=== PATIENT | male | born 1955 | race Caucasian/White ===

== ENCOUNTER 2017-08-18 18:56 | Emergency (ER) | payer MEDICARE ==
[2017-08-18 19:15] VITALS: BP 130/74; PULSE 90; RESP 20; TEMP 98.9
--- NOTE | 2017-08-18 19:48 | ED ---
Wound/Laceration HPI - General Chief Complaint: Wound/Laceration Stated Complaint: POST OP BLEEDING, RT HIP Sx ON 07/20/17 Time Seen by Provider: 08/18/17 19:20 Source: patient, RN notes reviewed Mode of arrival: wheelchair Limitations: no limitations - History of Present Illness Initial Comments: This a 62-year-old male presents emergency Department chief complaint of bleeding from his surgical site. Patient states that he had right hip surgery on 08/07/2017 at [place] by Dr. Prado. Patient states that he noticed some bleeding today states it's light red color nature. He denies any pain, fever, chills. Patient states symptoms have been improving daily. He is currently on Xarelto. Patient states is only one site that seems to be trickling every now and then. He's gone through a few 4 x 4 gauze. Patient did not contact his surgeon at this time. Patient offers no other complaints. - Related Data Allergies Allergy/AdvReac Type Severity Reaction Status Date / Time aspirin Allergy Abdominal Verified 08/18/17 19:16 Pain fentanyl Allergy Hallucinati Verified 08/18/17 19:16 ons gemfibrozil [From Lopid] Allergy Unknown Verified 08/18/17 19:16 Review of Systems ROS Statement: Those systems with pertinent positive or pertinent negative responses have been documented in the HPI. ROS Other: All systems not noted in ROS Statement are negative. Past Medical History Past Medical History: Asthma, Diabetes Mellitus, Hyperlipidemia, Hypertension, Osteoarthritis (OA) History of Any Multi-Drug Resistant Organisms: None Reported Past Surgical History: Bowel Resection, Hernia Repair, Joint Replacement, Orthopedic Surgery Additional Past Surgical History / Comment(s): iggy hip replacement, cataract Past Psychological History: Anxiety Smoking Status: Never smoker Past Alcohol Use History: None Reported Past Drug Use History: None Reported General Exam Limitations: no limitations General appearance: alert, in no apparent distress Respiratory exam: Present: normal lung sounds bilaterally. Absent: respiratory distress, wheezes, rales, rhonchi, stridor Cardiovascular Exam: Present: regular rate, normal rhythm, normal heart sounds. Absent: systolic murmur, diastolic murmur, rubs, gallop, clicks Extremities exam: Present: other (Right hip there is a surgical site noted with no erythema, no warmth with palpation, there is a small opening to the incision noted with light-colored blood. Patient has minimal tenderness to the site. Bleeding is only noted when patient is standing. Pedal pulses are equal bilaterally) Course Vital Signs 08/18/17 19:10 Temperature 98.9 F Pulse Rate 90 Respiratory 20 Rate Blood Pressure 130/74 O2 Sat by Pulse 96 Oximetry Medical Decision Making - Medical Decision Making 62-year-old male presented to friend from bleeding from surgical site. This most likely is from a seroma/hematoma. There is very minimal bleeding, no bleeding when laying flat. The area was palpated thoroughly with no warmth and no expression of further blood. Patient was examined also by Dr. [place]. Patient was informed this most likely is a seroma Steri-Stripped, gauze dressing was applied with pressure patient advised to call surgeon and return for any worsening symptoms. Disposition Clinical Impression: Postoperative bleeding from incision, Seroma Disposition: HOME SELF-CARE Condition: Stable Instructions: Hematoma (ED) Additional Instructions: Please return to the Emergency Department if symptoms worsen or any other concerns. Referrals: Luh Louise MD [Primary Care Provider] - 1-2 days Time of Disposition: 19:47
== END 2017-08-18 19:55 | disposition home or self-care (01) ==
LOC: EC 18:56
DX: M96.830 Postprocedural hemorrhage of a musculoskeletal structure following a musculoskeletal system procedure (principal); M96.842 Postprocedural seroma of a musculoskeletal structure following a musculoskeletal system procedure; Z79.01 Long term (current) use of anticoagulants; Z88.6 Allergy status to analgesic agent; Z88.5 Allergy status to narcotic agent; Z88.8 Allergy status to other drugs, medicaments and biological substances; Z96.643 Presence of artificial hip joint, bilateral
CPT/HCPCS: 99283

== ENCOUNTER 2018-01-31 06:52 | Day surgery (SDC) | payer MEDICARE ==
[2018-01-29 12:25] VITALS: BMI 37.5
[~2018-01-31 06:52] MED LIST: LACTATED RINGERS 1,000 ML IV SCH
[2018-01-31 07:18] VITALS: RESP 16; TEMP 98.4
[2018-01-31] MEDS ORDERED: LIDOCAINE 1% 20 ML VIAL (10MG/ML) FOR IV START INTRADERMA ONE (07:18)
[2018-01-31 07:20] LABS: Glucose,Whole Blood 93 mg/dL (75-99)
[2018-01-31] MEDS ORDERED: PROPOFOL 10 MG/ML 20 ML VIAL IV ONE (09:02)
[2018-01-31] MEDS ORDERED: LIDOCAINE 1% INJ 10MG/ML (20 ML MDV) ONE (09:02)
[2018-01-31] MEDS ORDERED: MIDAZOLAM 2 MG/2 ML VIAL ONE (09:02)
[2018-01-31] MEDS ORDERED: diphenhydrAMINE 50 MG/ML 1 ML VIAL ONE (09:02)
--- NOTE | 2018-01-31 09:38 | P.PCN ---
Date of Procedure: 01/31/18 Procedure(s) Performed: Procedure: Total colonoscopy. Preoperative diagnosis: Positive cologuard test. Postoperative diagnosis: Mild diverticulosis with no evidence of acute diverticulitis, strictures, polyps or cancer. Preparation: HalfLytely prep. Sedation: Was provided by anesthesia. Brief clinical history: The patient is a 62-year-old male who is scheduled for this evaluation because of finding of positive Corgard. The patient had prior colonoscopy around 14 years ago. He has no abdominal complaints, bleeding or anemia. Procedure: With the patient on his left lateral decubitus position and after informed consent and adequate sedation, the perianal area was inspected and it did not show any fissures or fistulas. There were no masses felt on digital rectal examination. The Olympus CFQ 160L video colonoscope was then inserted in the rectum in the usual fashion and advanced to the cecum. There were a few diverticular orifices seen scattered in the sigmoid and on the right side but there was no evidence of acute diverticulitis or strictures. No polyps or tumors were seen. I retroflexed the endoscope in the rectum before the endoscope was withdrawn. The patient tolerated the procedure well. Plan: The patient was reassured. Discussed dietary measures. In the absence of upper GI complaints or anemia, I did not recommend upper GI workup at this time for the workup of his heme-positive stools and this can be kept as a contingency. He will follow up with you as planned.
[2018-01-31 09:50] VITALS: BP 126/79; PULSE 73
== END 2018-01-31 10:13 | disposition home or self-care (01) ==
LOC: ORWHC2ENDO 06:52
DX: K57.30 Diverticulosis of large intestine without perforation or abscess without bleeding (principal); R19.5 Other fecal abnormalities; E11.9 Type 2 diabetes mellitus without complications; I10 Essential (primary) hypertension; E78.5 Hyperlipidemia, unspecified; M19.90 Unspecified osteoarthritis, unspecified site; R41.3 Other amnesia; E66.9 Obesity, unspecified; Z68.37 Body mass index [BMI] 37.0-37.9, adult; Z96.643 Presence of artificial hip joint, bilateral; Z79.84 Long term (current) use of oral hypoglycemic drugs; Z79.82 Long term (current) use of aspirin; Z79.51 Long term (current) use of inhaled steroids; Z79.899 Other long term (current) drug therapy; Z88.6 Allergy status to analgesic agent; Z88.8 Allergy status to other drugs, medicaments and biological substances; Z86.711 Personal history of pulmonary embolism; Z87.891 Personal history of nicotine dependence
CPT/HCPCS: 45378; J2250; J1200; J2001; J2704

== ENCOUNTER 2018-05-02 10:56 | Inpatient (IN) | payer MEDICARE ==
--- NOTE | 2018-05-02 11:22 | ED ---
General Adult HPI - General Chief complaint: Arrhythmia/Palpitations Stated complaint: abnormal ekg Time Seen by Provider: 05/02/18 11:07 Source: patient, RN notes reviewed Mode of arrival: ambulatory Limitations: no limitations - History of Present Illness Initial comments: 63-year-old male history of asthma COPD presents for evaluation of palpitations. Patient was seen in the outpatient setting, noted to be in a flutter. He was sent in for evaluation. Denies chest pain. Patient has no history of arrhythmia. No history of CAD. He does admit that over the past one month he's been dealing with upper respiratory tract infections and COPD. He's been on multiple antibiotics and steroid taper. States his previous somewhat improved although he does have some exertional dyspnea. Cough. No fever or chills. No abdominal pain. No nausea vomiting or diarrhea. - Related Data Home Medications Medication Instructions Recorded Confirmed Pregabalin [Lyrica] 300 mg PO BID 08/18/17 05/02/18 Sertraline [Zoloft] 100 mg PO DAILY 08/18/17 05/02/18 metFORMIN HCL 1,000 mg PO BID 08/18/17 05/02/18 Aspirin [Adult Low Dose Aspirin EC] 81 mg PO HS 01/29/18 05/02/18 Fluticasone Nasal [place] [Flonase 2 spr EA NOSTRIL BID PRN 01/29/18 05/02/18 Nasal [place]] Lisinopril [Prinivil] 10 mg PO QAM 01/29/18 05/02/18 Montelukast Sodium [Singulair] 10 mg PO DAILY 01/29/18 05/02/18 Ranitidine HCl [Zantac] 150 mg PO BID 01/29/18 05/02/18 Simvastatin [Zocor] 40 mg PO DAILY 01/29/18 05/02/18 Albuterol Nebulized [Ventolin 2.5 mg INHALATION Q4H PRN 05/02/18 05/02/18 Nebulized] Budesonide [Pulmicort] 1 mg INHALATION RT-BID 05/02/18 05/02/18 Budesonide/Formoterol Fumarate 2 puff INHALATION RT-BID 05/02/18 05/02/18 [Symbicort 160-4.5 Mcg Inhaler] Tamsulosin HCl [Flomax] 0.4 mg PO HS 05/02/18 05/02/18 Allergies Allergy/AdvReac Type Severity Reaction Status Date / Time aspirin Allergy Abdominal Verified 05/02/18 11:38 Pain fentanyl Allergy Hallucinati Verified 05/02/18 11:38 ons gemfibrozil [From Lopid] Allergy Unknown Verified 05/02/18 11:38 Review of Systems ROS Statement: Those systems with pertinent positive or pertinent negative responses have been documented in the HPI. ROS Other: All systems not noted in ROS Statement are negative. Past Medical History Past Medical History: Asthma, Diabetes Mellitus, Hyperlipidemia, Hypertension, Memory Impairment, Musculoskeletal Disorder, Osteoarthritis (OA), Pneumonia, Prostate Disorder, Pulmonary Embolus (PE), Skin Disorder Additional Past Medical History / Comment(s): Dermatitis, enlarged prostate. PE found in 07/2003 while hospitalized for pneumonia, spinal stenosis, degenerative scoliosis, nerve pain in knees. Positive Cologard Test. History of Any Multi-Drug Resistant Organisms: None Reported Past Surgical History: Bowel Resection, Hernia Repair, Joint Replacement, Orthopedic Surgery Additional Past Surgical History / Comment(s): Bilateral hip replacement, bilateral cataract surgery, hiatal hernia repair, incisional hernia repair, bronchoscopies., colonoscopy Past Anesthesia/Blood Transfusion Reactions: Previous Problems w/ Anesthesia, Family History of Problems w/ Anesthesia Additional Past Anesthesia/Blood Transfusion Reaction / Comment(s): "Problem with being twilighted - become very combative. Slow to wake up. Uncle has same symptoms." Past Psychological History: Depression Smoking Status: Former smoker Past Alcohol Use History: None Reported Past Drug Use History: None Reported - Past Family History Father Family Medical History: Cancer Mother Family Medical History: Cancer Brother(s) Family Medical History: Cancer General Exam Limitations: no limitations General appearance: alert, in no apparent distress Head exam: Present: atraumatic, normocephalic Eye exam: Present: normal appearance ENT exam: Present: normal exam Respiratory exam: Present: wheezes, rhonchi. Absent: respiratory distress, rales Cardiovascular Exam: Present: regular rate, normal rhythm GI/Abdominal exam: Present: soft. Absent: distended, tenderness Extremities exam: Present: normal inspection, normal capillary refill. Absent: pedal edema, calf tenderness Neurological exam: Present: alert, oriented X3. Absent: motor sensory deficit Psychiatric exam: Present: normal affect, normal mood Skin exam: Present: warm, dry, intact. Absent: cyanosis, diaphoretic Course Vital Signs 05/02/18 05/02/18 05/02/18 11:00 11:08 14:00 Temperature 98.2 F Pulse Rate 84 93 Respiratory 18 18 Rate Blood Pressure 137/88 112/71 O2 Sat by Pulse 93 L 94 L 94 L Oximetry 05/02/18 05/02/18 05/02/18 14:30 15:00 15:30 Temperature Pulse Rate 115 H 99 101 H Respiratory 18 Rate Blood Pressure 111/79 108/85 111/82 O2 Sat by Pulse 93 L 93 L 95 Oximetry 05/02/18 05/02/18 15:33 15:42 Temperature Pulse Rate 86 104 H Respiratory Rate Blood Pressure O2 Sat by Pulse Oximetry EKG Findings - EKG Comments: EKG Findings:: EKG: Atrial flutter with variable AV block, rate of 87, QRS duration 92, QTC 459, no ST segment elevation Medical Decision Making - Medical Decision Making 63-year-old male with chief complaint of palpitations, found to be in atrial flutter. This is a new diagnosis for this patient. Patient has admitted to cough and dyspnea over the past several weeks and had been treated for pneumonia. He states he's had persistent dyspnea. EKG shows atrial flutter with variable AV block. No definitive signs of ischemia. Patient has normal white blood cell count, hemoglobin 12.4, CO2 is 31 consistent with COPD and CO2 retention. Troponin and BNP negative. D-dimer is elevated at 0.9. CT angiography is obtained which shows right upper lobe pneumonia which is consistent with chest x-ray findings. Patient is started on antibiotics for community acquired pneumonia. He is admitted for further evaluation and treatment. He is placed on heparin in the emergency department as well. - Lab Data Result diagrams: 05/02/18 11:33 05/02/18 11:33 Lab Results 05/02/18 05/02/18 05/02/18 Range/Units 11:33 11:33 11:33 WBC 7.7 (3.8-10.6) k/uL RBC 4.26 L (4.30-5.90) m/uL Hgb 12.4 L (13.0-17.5) gm/dL Hct 39.0 (39.0-53.0) % MCV 91.6 (80.0-100.0) fL MCH 29.1 (25.0-35.0) pg MCHC 31.7 (31.0-37.0) g/dL RDW 14.4 (11.5-15.5) % Plt Count 304 (150-450) k/uL Neutrophils % 76 % Lymphocytes % 12 % Monocytes % 7 % Eosinophils % 2 % Basophils % 1 % Neutrophils # 5.9 (1.3-7.7) k/uL Lymphocytes # 0.9 L (1.0-4.8) k/uL Monocytes # 0.5 (0-1.0) k/uL Eosinophils # 0.1 (0-0.7) k/uL Basophils # 0.0 (0-0.2) k/uL Hypochromasia Slight PT (9.0-12.0) sec INR (<1.2) APTT (22.0-30.0) sec D-Dimer (<0.60) mg/L FEU Sodium 140 (137-145) mmol/L Potassium 4.4 (3.5-5.1) mmol/L Chloride 105 (98-107) mmol/L Carbon Dioxide 31 H (22-30) mmol/L Anion Gap 4 mmol/L BUN 17 (9-20) mg/dL Creatinine 0.65 L (0.66-1.25) mg/dL Est GFR (CKD-EPI)AfAm >90 (>60 ml/min/1.73 sqM) Est GFR (CKD-EPI)NonAf >90 (>60 ml/min/1.73 sqM) Glucose 110 H (74-99) mg/dL Calcium 9.5 (8.4-10.2) mg/dL Magnesium 1.9 (1.6-2.3) mg/dL Total Bilirubin 0.3 (0.2-1.3) mg/dL AST 32 (17-59) U/L ALT 44 (21-72) U/L Alkaline Phosphatase 68 (38-126) U/L Total Creatine Kinase 173 H (55-170) U/L CK-MB (CK-2) 5.7 H (0.0-2.4) ng/mL CK-MB (CK-2) Rel Index 3.3 Troponin I <0.012 (0.000-0.034) ng/mL NT-Pro-B Natriuret Pep pg/mL Total Protein 6.0 L (6.3-8.2) g/dL Albumin 3.4 L (3.5-5.0) g/dL TSH 1.780 (0.465-4.680) mIU/L 05/02/18 05/02/18 Range/Units 11:33 11:33 WBC (3.8-10.6) k/uL RBC (4.30-5.90) m/uL Hgb (13.0-17.5) gm/dL Hct (39.0-53.0) % MCV (80.0-100.0) fL MCH (25.0-35.0) pg MCHC (31.0-37.0) g/dL RDW (11.5-15.5) % Plt Count (150-450) k/uL Neutrophils % % Lymphocytes % % Monocytes % % Eosinophils % % Basophils % % Neutrophils # (1.3-7.7) k/uL Lymphocytes # (1.0-4.8) k/uL Monocytes # (0-1.0) k/uL Eosinophils # (0-0.7) k/uL Basophils # (0-0.2) k/uL Hypochromasia PT 10.7 (9.0-12.0) sec INR 1.1 (<1.2) APTT 26.3 (22.0-30.0) sec D-Dimer 0.90 H (<0.60) mg/L FEU Sodium (137-145) mmol/L Potassium (3.5-5.1) mmol/L Chloride (98-107) mmol/L Carbon Dioxide (22-30) mmol/L Anion Gap mmol/L BUN (9-20) mg/dL Creatinine (0.66-1.25) mg/dL Est GFR (CKD-EPI)AfAm (>60 ml/min/1.73 sqM) Est GFR (CKD-EPI)NonAf (>60 ml/min/1.73 sqM) Glucose (74-99) mg/dL Calcium (8.4-10.2) mg/dL Magnesium (1.6-2.3) mg/dL Total Bilirubin (0.2-1.3) mg/dL AST (17-59) U/L ALT (21-72) U/L Alkaline Phosphatase (38-126) U/L Total Creatine Kinase (55-170) U/L CK-MB (CK-2) (0.0-2.4) ng/mL CK-MB (CK-2) Rel Index Troponin I (0.000-0.034) ng/mL NT-Pro-B Natriuret Pep 579 pg/mL Total Protein (6.3-8.2) g/dL Albumin (3.5-5.0) g/dL TSH (0.465-4.680) mIU/L Disposition Clinical Impression: Atrial flutter, Atrial fibrillation, Community acquired bacterial pneumonia Disposition: ADMITTED IP TO THIS HOSP Condition: Stable Is patient prescribed a controlled substance at d/c from ED?: No Referrals: Luh Louise MD [Primary Care Provider] - 1-2 days Decision to Admit Reason: Admit from EC Decision Date: 05/02/18 Decision Time: 15:53
[2018-05-02 12:19] LABS: Basophils % (A) 1 %; Eosinophils # (A) 0.1 k/uL (0-0.7); Eosinophils % (A) 2 %; HGB 12.4 gm/dL (13.0-17.5); Hypochromasia Slight; Lymphocytes # (A) 0.9 k/uL (1.0-4.8); Lymphocytes % (A) 12 %; MCH 29.1 pg (25.0-35.0); MCHC 31.7 g/dL (31.0-37.0); MCV 91.6 fL (80.0-100.0); Mean Platelet Volume 7.6; Monocytes # (A) 0.5 k/uL (0-1.0); Monocytes % (A) 7 %; Neutrophils # (A) 5.9 k/uL (1.3-7.7); Neutrophils % (A) 76 %; Platelet Count 304 k/uL (150-450); RBC 4.26 m/uL (4.30-5.90); RDW 14.4 % (11.5-15.5); WBC 7.7 k/uL (3.8-10.6)
[2018-05-02 12:29] LABS: ALT 44 U/L (21-72); AST 32 U/L (17-59); Albumin 3.4 g/dL (3.5-5.0); Alkaline Phosphatase 68 U/L (38-126); Anion Gap 4 mmol/L; Blood Urea Nitrogen 17 mg/dL (9-20); Calcium 9.5 mg/dL (8.4-10.2); Carbon Dioxide 31 mmol/L (22-30); Chloride 105 mmol/L (98-107); Glucose 110 mg/dL (74-99); Magnesium 1.9 mg/dL (1.6-2.3); Potassium 4.4 mmol/L (3.5-5.1); Sodium 140 mmol/L (137-145); Total Bilirubin 0.3 mg/dL (0.2-1.3)
[2018-05-02 12:45] LABS: Creatine Kinase 173 U/L (55-170)
[2018-05-02 12:48] LABS: INR 1.1 (<1.2); Partial Thromboplastin Time 26.3 sec (22.0-30.0); Prothrombin Time 10.7 sec (9.0-12.0)
[2018-05-02 12:58] LABS: Creatine Kinase MB 5.7 ng/mL (0.0-2.4); Troponin I <0.012 ng/mL (0.000-0.034)
[2018-05-02 13:03] LABS: D-Dimer 0.9 mg/L FEU (<0.60)
--- NOTE | 2018-05-02 13:05 | XR ---
EXAMINATION TYPE: XR chest 2V DATE OF EXAM: 05/02/2018 COMPARISON: NONE TECHNIQUE: PA and lateral views submitted. HISTORY: Tachycardia FINDINGS: There is diffuse abnormal density in the right upper lobe. Heart is prominent is hyperinflation. No p neumothorax. Diffuse osteopenia. No pleural effusion. Hypertrophic and degenerative change of the spi ne. Atherosclerotic change aorta. Biapical pleural thickening. IMPRESSION: 1. Diffuse right upper lobe area of infiltrate. Correlate for pneumonia. Underlying neoplastic proces s not excluded.
[2018-05-02] MEDS ORDERED: HEPARIN SODIUM,PORCINE 5,000 UNIT/ML 1 ML VIAL IV ONE (13:06)
[2018-05-02] MEDS ORDERED: HEPARIN SOD,PORK IN 0.45% NACL 25,000 UNIT in 0.45% NACL 1 500ML.BAG IV SCH (13:15)
[2018-05-02] MEDS ORDERED: AZITHROMYCIN 500 MG in SODIUM CHLORIDE 0.9% 250 ML IVPB STA (13:57)
[2018-05-02] MEDS ORDERED: IPRATROPIUM-ALBUTEROL 3 ML NEB INHALATION STA (14:52)
[2018-05-02] MEDS ORDERED: DEXAMETHASONE SOD PHOSPHATE 10 MG/ML 1 ML VIAL IV STA (14:52)
[2018-05-02] MEDS: SODIUM CHLORIDE 0.9% 1,000 ML IV SCH (15:15)
[2018-05-02] MEDS ORDERED: NALOXONE 0.4 MG/ML 1 ML VIAL IV PRN (15:15)
--- NOTE | 2018-05-02 15:46 | CT ---
EXAMINATION TYPE: CT angio chest DATE OF EXAM: 05/02/2018 COMPARISON: None HISTORY: Abnormal EKG CT DLP: 869.9 mGycm CONTRAST: CT chest with contrast and 3D reconstruction with MIP imaging is performed with IV Contrast, patient injected with 100 mL of Isovue 370. Contrast-enhanced CT of the chest was performed through the course of the pulmonary arteries with dalton g and mediastinal window settings submitted. 3D reconstruction with MIP imaging was also performed. PULMONARY ARTERIES: The pulmonary arteries and their major tributaries are patent. I do not see brianne dence for sizable filling defect to suggest pulmonary embolic process. LUNGS: Scattered areas of airspace consolidation greatest within the right upper lobe felt to reflect underlying pneumonia. Bronchial wall thickening also noted. No evidence for mass or nodule. MEDIASTINUM: Thoracic aorta is of normal caliber,however, evaluation is limited given timing of the contrast bolus. If there is concern for thoracic aortic pathology consider ARNOL. Correlate clinicall y . The heart is not enlarged. No evidence for mediastinal mass. Mild mediastinal adenopathy measuri ng up to 1.5 cm. There is also right hilar adenopathy measuring 1.6 cm. UPPER ABDOMEN: No significant abnormality is seen. IMPRESSION: 1. No evidence for Pulmonary embolism at this time. 2. Multifocal pneumonia greatest within the right upper lobe with probable reactive adenopathy. Corre late clinically and progress studies are recommended.
[2018-05-02 18:01] VITALS: BMI 41.1
[2018-05-02 18:05] LABS: Glucose,Whole Blood 255 mg/dL (75-99)
[2018-05-02] MEDS ORDERED: FLUTICASONE 50MCG/SPRAY NASAL 16GM EA NOSTRIL PRN (18:18)
[2018-05-02] MEDS: INSULIN ASPART 100 UNIT/ML 1 ML 10 ML VIAL SQ SCH ×2 (18:59→21:09)
[2018-05-02] MEDS: MONTELUKAST 10 MG TAB PO SCH (19:00)
[2018-05-02] MEDS: LISINOPRIL 10 MG TAB PO SCH (19:00)
[2018-05-02] MEDS: BUDESONIDE 1 MG/2 ML NEBU INHALATION SCH (20:18)
[2018-05-02] MEDS: ALBUTEROL NEBULIZED 2.5 MG/3 ML INHALATION PRN (20:43)
[2018-05-02 20:58] LABS: Glucose,Whole Blood 153 mg/dL (75-99)
[2018-05-02] MEDS: FAMOTIDINE 20 MG TAB PO SCH (21:09)
[2018-05-02] MEDS: HEPARIN SODIUM,PORCINE 5,000 UNIT/ML 1 ML VIAL IV PRN (21:10)
[2018-05-02] MEDS: PREGABALIN 100 MG CAP PO SCH (21:35)
[2018-05-03] MEDS: ACETAMINOPHEN TAB 325 MG TAB PO PRN (00:32)
[2018-05-03 03:17] LABS: Hemoglobin A1C 6.4 % (4.0-6.0)
[2018-05-03] MEDS: SODIUM CHLORIDE 0.9% 1,000 ML IV SCH (04:00)
[2018-05-03 04:36] LABS: Basophils % (A) 0 %; Eosinophils % (A) 0 %; HCT 37.1 % (39.0-53.0); Hypochromasia Slight; Lymphocytes # (A) 0.6 k/uL (1.0-4.8); Lymphocytes % (A) 9 %; MCH 29.8 pg (25.0-35.0); MCHC 32.5 g/dL (31.0-37.0); MCV 91.8 fL (80.0-100.0); Mean Platelet Volume 7.7; Monocytes # (A) 0.3 k/uL (0-1.0); Monocytes % (A) 5 %; Neutrophils # (A) 5.7 k/uL (1.3-7.7); Neutrophils % (A) 84 %; Platelet Count 290 k/uL (150-450); RBC 4.04 m/uL (4.30-5.90); RDW 14.2 % (11.5-15.5); WBC 6.8 k/uL (3.8-10.6)
[2018-05-03 04:45] LABS: Anion Gap 4 mmol/L; Blood Urea Nitrogen 16 mg/dL (9-20); Calcium 9.3 mg/dL (8.4-10.2); Carbon Dioxide 28 mmol/L (22-30); Chloride 106 mmol/L (98-107); Glucose 148 mg/dL (74-99); Potassium 4.5 mmol/L (3.5-5.1); Sodium 138 mmol/L (137-145)
[2018-05-03] MEDS: HEPARIN SODIUM,PORCINE 5,000 UNIT/ML 1 ML VIAL IV PRN (04:54)
[2018-05-03 05:51] LABS: Glucose,Whole Blood 140 mg/dL (75-99)
[2018-05-03] MEDS: INSULIN ASPART 100 UNIT/ML 1 ML 10 ML VIAL SQ SCH ×4 (06:26→20:55)
[2018-05-03] MEDS: ALBUTEROL NEBULIZED 2.5 MG/3 ML INHALATION PRN (07:27)
[2018-05-03] MEDS: BUDESONIDE 1 MG/2 ML NEBU INHALATION SCH ×2 (07:27→20:44)
--- NOTE | 2018-05-03 09:37 | P.CRDCN ---
History of Present Illness Consult date: 05/03/18 Requesting physician: Kandace Espino Consult reason: atrial flutter Chief complaint: Shortness of breath and palpitations History of present illness: 's is a 63-year-old gentleman who follows as an outpatient with Dr. Louise, he has a history of hypertension, diabetes, hyperlipidemia, prior pulmonary embolism, nonsmoker, obesity, he states that since February 25 he has been on steroids and recurrent antibiotics for a lung infection. In spite of being on so many treatments, he states that he continued to have persistent cough, in the recent few days, he has just felt extremely weak, his energy levels have been significantly low, and he has been more short of breath. He states that just walking to his mailbox he can hardly breathe. Patient also noticed palpitations and jittery feeling which was new for him. He went to see Dr. Louise, and EKG was performed in the office which revealed atrial flutter and he was recommended to come to the emergency room for further evaluation and treatment. Let pressure on arrival here 136/80, heart rate in the 80s, 93% on room air. Chest x-ray showed diffuse right upper lobe infiltrate. Underlying neoplastic process not excluded. CTA of the chest did not reveal any evidence for pulmonary embolism. It did reveal multifocal pneumonia within the right upper lobe with probable reactive adenopathy. EKG showed atrial flutter with a heart rate in the high 80s. White blood cell count was normal, hemoglobin 12, platelet count 290. D-dimer 0.9. Sodium 138, potassium 4.5, BUN 16, creatinine 0.6. Magnesium 1.9. Troponin 0.012. BNP level 579, TSH 1.7. At the time of my examination this morning, patient complains of a jittery feeling, still feels short of breath. At the time of my examination this morning he also continues to be in an atrial flutter. Past Medical History Past Medical History: Asthma, COPD, Diabetes Mellitus, Hyperlipidemia, Hypertension, Memory Impairment, Musculoskeletal Disorder, Osteoarthritis (OA), Pneumonia, Prostate Disorder, Pulmonary Embolus (PE), Skin Disorder, Sleep Apnea /CPAP/BIPAP Additional Past Medical History / Comment(s): Dermatitis, enlarged prostate. PE found in 07/2003 while hospitalized for pneumonia, spinal stenosis, degenerative scoliosis, nerve pain in knees. Positive Cologard Test. History of Any Multi-Drug Resistant Organisms: None Reported Past Surgical History: Bowel Resection, Hernia Repair, Joint Replacement, Orthopedic Surgery Additional Past Surgical History / Comment(s): Bilateral hip replacement 2009, bilateral cataract surgery, hiatal hernia repair, incisional hernia repair , bronchoscopies., colonoscopy Past Anesthesia/Blood Transfusion Reactions: Previous Problems w/ Anesthesia, Family History of Problems w/ Anesthesia Additional Past Anesthesia/Blood Transfusion Reaction / Comment(s): "Problem with being twilighted - become very combative. Slow to wake up. Uncle has same symptoms." Past Psychological History: Depression Smoking Status: Former smoker Past Alcohol Use History: None Reported Additional Past Alcohol Use History / Comment(s): Quit smoking in 1996. Past Drug Use History: None Reported - Past Family History Father Family Medical History: Cancer Mother Family Medical History: Cancer Brother(s) Family Medical History: Cancer Medications and Allergies Home Medications Medication Instructions Recorded Confirmed Type Pregabalin [Lyrica] 300 mg PO BID 08/18/17 05/02/18 History Sertraline [Zoloft] 100 mg PO DAILY 08/18/17 05/02/18 History metFORMIN HCL 1,000 mg PO BID 08/18/17 05/02/18 History Aspirin [Adult Low Dose Aspirin EC] 81 mg PO HS 01/29/18 05/02/18 History Fluticasone Nasal [place] [Flonase 2 spr EA NOSTRIL BID PRN 01/29/18 05/02/18 History Nasal [place]] Lisinopril [Prinivil] 10 mg PO QAM 01/29/18 05/02/18 History Montelukast Sodium [Singulair] 10 mg PO DAILY 01/29/18 05/02/18 History Ranitidine HCl [Zantac] 150 mg PO BID 01/29/18 05/02/18 History Simvastatin [Zocor] 40 mg PO DAILY 01/29/18 05/02/18 History Albuterol Nebulized [Ventolin 2.5 mg INHALATION Q4H PRN 05/02/18 05/02/18 History Nebulized] Budesonide [Pulmicort] 1 mg INHALATION RT-BID 05/02/18 05/02/18 History Budesonide/Formoterol Fumarate 2 puff INHALATION RT-BID 05/02/18 05/02/18 History [Symbicort 160-4.5 Mcg Inhaler] Tamsulosin HCl [Flomax] 0.4 mg PO HS 05/02/18 05/02/18 History Allergies Allergy/AdvReac Type Severity Reaction Status Date / Time aspirin Allergy Abdominal Verified 05/02/18 11:38 Pain fentanyl Allergy Hallucinati Verified 05/02/18 11:38 ons gemfibrozil [From Lopid] Allergy Unknown Verified 05/02/18 11:38 Physical Exam Vitals: Vital Signs Temp Pulse Pulse Resp BP BP Pulse Ox 05/03/18 08:00 97.7 F 91 17 108/69 92 L 05/03/18 07:42 90 05/03/18 07:27 90 05/03/18 04:00 78 18 111/70 92 L 05/03/18 00:00 98 22 101/65 92 L 05/02/18 20:53 88 05/02/18 20:46 84 05/02/18 20:00 98.3 F 108 H 20 122/82 91 L 05/02/18 18:00 110 H 17 05/02/18 17:50 97.1 F L 110 H 20 135/93 94 L 05/02/18 17:00 98 7 L 126/97 96 05/02/18 16:30 94 16 109/93 93 L 05/02/18 16:00 106 H 17 99/83 94 L 05/02/18 15:42 104 H 05/02/18 15:33 86 05/02/18 15:30 101 H 18 111/82 95 05/02/18 15:00 99 108/85 93 L 05/02/18 14:30 115 H 111/79 93 L 05/02/18 14:00 93 18 112/71 94 L 05/02/18 11:08 94 L 05/02/18 11:00 98.2 F 84 18 137/88 93 L Intake and Output 05/02/18 05/03/18 05/03/18 22:59 06:59 14:59 Intake Total 986.764 227.075 240 Output Total 300 1325 Balance 686.764 -1097.925 240 Intake: IV 325 Azithromycin 500 mg In 250 Sodium Chloride 0.9% 250 ml @ 250 mls/hr IVPB DAILY [facility] Rx#:[id number] Sodium Chloride 0.9% 1, 75 000 ml @ 75 mls/hr IV . [id number] [facility] Rx#:[id number] Intake, IV Titration 141.764 227.075 Amount Heparin Sod,Pork in 0.45% 141.764 227.075 NaCl 25,000 unit In 0.45 % NaCl 1 500ml.bag @ 6.8 UNITS/KG/HR 19.92 mls/hr IV .Q24H [facility] Rx#: [id number] Oral 520 240 Output: Urine 300 1325 Other: # Voids 1 1 Weight 145.4 kg 141.9 kg PHYSICAL EXAMINATION: GENERAL: 63-year-old gentleman in no acute distress at the time of my examination HEENT: Head is atraumatic, normocephalic. Pupils equal, round. Sclera anicteric. Conjunctiva are clear. Mucous membranes of the mouth are moist. Neck is supple. There is no elevated jugular venous pressure. No carotid bruit is heard. HEART EXAMINATION: Heart S1-S2 irregularly irregular CHEST EXAMINATION: Lungs reveal scattered coarse wheezing throughout ABDOMEN: Soft, obese, nontender. Bowel sounds are heard. No organomegaly noted. EXTREMITIES: 2+ peripheral pulses with evidence of peripheral edema and no calf tenderness noted. NEUROLOGIC patient is awake, alert and oriented 3 . . Results 05/03/18 04:14 05/03/18 04:14 Cardiac Enzymes 05/02/18 05/02/18 Range/Units 11:33 11:33 AST 32 (17-59) U/L CK-MB (CK-2) 5.7 H (0.0-2.4) ng/mL Troponin I <0.012 (0.000-0.034) ng/mL Coagulation 05/02/18 05/02/18 05/03/18 Range/Units 11:33 20:00 04:14 PT 10.7 (9.0-12.0) sec APTT 26.3 28.9 30.9 H (22.0-30.0) sec CBC 05/02/18 05/03/18 Range/Units 11:33 04:14 WBC 7.7 6.8 (3.8-10.6) k/uL RBC 4.26 L 4.04 L (4.30-5.90) m/uL Hgb 12.4 L 12.0 L (13.0-17.5) gm/dL Hct 39.0 37.1 L (39.0-53.0) % Plt Count 304 290 (150-450) k/uL Comprehensive Metabolic Panel 05/02/18 05/03/18 Range/Units 11:33 04:14 Sodium 140 138 (137-145) mmol/L Potassium 4.4 4.5 (3.5-5.1) mmol/L Chloride 105 106 (98-107) mmol/L Carbon Dioxide 31 H 28 (22-30) mmol/L BUN 17 16 (9-20) mg/dL Creatinine 0.65 L 0.62 L (0.66-1.25) mg/dL Glucose 110 H 148 H (74-99) mg/dL Calcium 9.5 9.3 (8.4-10.2) mg/dL AST 32 (17-59) U/L ALT 44 (21-72) U/L Alkaline Phosphatase 68 (38-126) U/L Total Protein 6.0 L (6.3-8.2) g/dL Albumin 3.4 L (3.5-5.0) g/dL Current Medications Generic Name Dose Route Start Last Admin Trade Name Freq PRN Reason Stop Dose Admin Acetaminophen 650 mg 05/02/18 15:15 05/03/18 00:32 Tylenol Tab PO 650 mg Q6HR PRN Administration Mild Pain or Fever > 100.5 Albuterol Sulfate 2.5 mg 05/02/18 18:18 05/03/18 07:27 Ventolin Nebulized INHALATION 2.5 mg Q4H PRN Administration Shortness Of Breath Budesonide 1 mg 05/02/18 20:00 05/03/18 07:27 Pulmicort INHALATION 1 mg RT-BID [facility] Administration Famotidine 20 mg 05/02/18 21:00 05/02/18 21:09 Pepcid PO 20 mg BID [facility] Administration Fluticasone Propionate 2 spray 05/02/18 18:18 Flonase Nasal [place] EA NOSTRIL BID PRN Congestion Heparin Sodium (Porcine) 0 unit 05/02/18 13:06 05/03/18 04:54 Heparin IV 4,000 unit PER PROTOCOL PRN Administration Low PTT Protocol Heparin Sodium/Sodium Chloride 500 mls @ 19.92 mls/hr 05/02/18 13:15 04:55 25,000 unit/ Sodium Chloride IV 13 units/kg/hr .Q24H [facility] 38.09 mls/hr Titration Protocol 6.8 UNITS/KG/HR Azithromycin 500 mg/ Sodium 250 mls @ 250 mls/hr 05/03/18 09:00 Chloride IVPB DAILY [facility] Ceftriaxone Sodium 1,000 mg/ 50 mls @ 100 mls/hr 05/03/18 09:00 Sodium Chloride IVPB Q24HR [facility] Sodium Chloride 1,000 mls @ 75 mls/hr 05/02/18 14:45 05/03/18 04:00 Saline 0.9% IV 75 mls/hr .[id number] [facility] Administration Insulin Aspart 0 unit 05/02/18 18:23 05/03/18 06:26 Novolog SQ 1 unit ACHS [facility] Administration Protocol Lisinopril 10 mg 05/02/18 18:30 05/02/18 19:00 Zestril PO 10 mg QAM [facility] Administration Montelukast Sodium 10 mg 05/02/18 18:30 05/02/18 19:00 Singulair PO 10 mg DAILY [facility] Administration Naloxone HCl 0.2 mg 05/02/18 15:15 Narcan IV Q2M PRN Opioid Reversal Pregabalin 300 mg 05/02/18 21:00 05/02/18 21:35 Lyrica PO 300 mg BID [facility] Administration Intake and Output 05/02/18 05/03/18 05/03/18 22:59 06:59 14:59 Intake Total 986.764 227.075 240 Output Total 300 1325 Balance 686.764 -1097.925 240 Intake: IV 325 Azithromycin 500 mg In 250 Sodium Chloride 0.9% 250 ml @ 250 mls/hr IVPB DAILY [facility] Rx#:[id number] Sodium Chloride 0.9% 1, 75 000 ml @ 75 mls/hr IV . [id number] [facility] Rx#:[id number] Intake, IV Titration 141.764 227.075 Amount Heparin Sod,Pork in 0.45% 141.764 227.075 NaCl 25,000 unit In 0.45 % NaCl 1 500ml.bag @ 6.8 UNITS/KG/HR 19.92 mls/hr IV .Q24H [facility] Rx#: [id number] Oral 520 240 Output: Urine 300 1325 Other: # Voids 1 1 Weight 145.4 kg 141.9 kg 05/03/18 04:14 05/03/18 04:14 EKG Interpretations (text) EKG shows atrial flutter Assessment and Plan Plan: Assessment and plan #1 atrial flutter, typical Are 2 hypertension #3 multifocal pneumonia #4 hyperlipidemia #5 diabetes #6 obesity Plan We will obtain an echocardiogram with Doppler study. It is unclear as to the duration of the patient's atrial flutter as he has been having symptoms for quite some time. Discontinue IV heparin and start the patient on oral anticoagulation. Patient has been educated regarding the importance of anticoagulation for stroke prevention. His TSH level is normal. We will also start the patient on a beta lester. Further recommendations to follow. DNP note has been reviewed, I agree with a documented findings and plan of care. Patient was seen and examined.
[2018-05-03] MEDS: PREGABALIN 100 MG CAP PO SCH ×2 (10:04→21:01)
[2018-05-03] MEDS: MONTELUKAST 10 MG TAB PO SCH (10:05)
[2018-05-03] MEDS: LISINOPRIL 10 MG TAB PO SCH (10:05)
[2018-05-03] MEDS: FAMOTIDINE 20 MG TAB PO SCH ×2 (10:05→21:01)
[2018-05-03] MEDS: METOPROLOL TARTRATE 12.5 MG TAB PO SCH ×2 (10:59→21:01)
[2018-05-03] MEDS: APIXABAN 5 MG TAB PO SCH ×2 (10:59→21:01)
[2018-05-03] MEDS: AZITHROMYCIN 500 MG in SODIUM CHLORIDE 0.9% 250 ML IVPB SCH (10:59)
[2018-05-03 11:49] LABS: Glucose,Whole Blood 94 mg/dL (75-99)
--- NOTE | 2018-05-03 12:25 | P.HPIM ---
History of Present Illness H&P Date: 05/02/18 Chief Complaint: Shortness of breath Patient is a 63-year-old male with a known history of COPD, asthma, diabetes type 2, hyperlipidemia, hypertension and history of pulmonary embolism came to ER with the complaints of shortness of breath and anxiety and palpitations. Patient says that during last few days he is very weak. Patient also says that he has been on antibiotics and steroids since last February for his asthma/ COPD exacerbation. Patient says that he is not getting any better. And last few days his condition got worse and presented to outside hospital where he was noted to be in flutter. Patient was sent to ER for further evaluation. Denied any history of arrhythmia in the past. Patient does not have a history of coronary artery disease. Patient had history of pulmonary embolism several years back after pneumonia. Denied any fever or chills. Patient does have cough without much sputum production. No nausea vomiting or abdominal pain. No diarrhea. Chest x-ray showed diffuse right upper lobe infiltrate underlying neoplastic process cannot be excluded. CT angiogram of the chest showed no evidence of pulmonary embolism. Multifocal pneumonia greatest within the right upper lobe with probable reactive adenopathy. Correlate clinically and progress studies are recommended. EKG showed atrial flutter with variable AV block TSH 1.7, BNP 579 troponin 1 negative Review of Systems Constitutional: Patient denies any fever or chills . Patient does have generalized weakness and fatigue. Abdomen: Patient denied nausea vomiting and diarrhea and abdominal pain. Cardiovascular: Patient denies any chest pain or short of breath no palpitations. Respiratory: Cough without sputum production and shortness of breath present. Neurologic: Patient denied any numbness or tingling headache. Musculoskeletal: Patient denies any complaints of joint swelling or deformity. Skin: Negative Psychiatric: Negative Endocrine: No heat or cold intolerance. No recent weight gain. Genitourinary: No dysuria or hematuria. All other 14 point ROS negative except the above Past Medical History Past Medical History: Asthma, COPD, Diabetes Mellitus, Hyperlipidemia, Hypertension, Memory Impairment, Musculoskeletal Disorder, Osteoarthritis (OA), Pneumonia, Prostate Disorder, Pulmonary Embolus (PE), Skin Disorder, Sleep Apnea /CPAP/BIPAP Additional Past Medical History / Comment(s): Dermatitis, enlarged prostate. PE found in 07/2003 while hospitalized for pneumonia, spinal stenosis, degenerative scoliosis, nerve pain in knees. Positive Cologard Test. History of Any Multi-Drug Resistant Organisms: None Reported Past Surgical History: Bowel Resection, Hernia Repair, Joint Replacement, Orthopedic Surgery Additional Past Surgical History / Comment(s): Bilateral hip replacement 2009, bilateral cataract surgery, hiatal hernia repair, incisional hernia repair , bronchoscopies., colonoscopy Past Anesthesia/Blood Transfusion Reactions: Previous Problems w/ Anesthesia, Family History of Problems w/ Anesthesia Additional Past Anesthesia/Blood Transfusion Reaction / Comment(s): "Problem with being twilighted - become very combative. Slow to wake up. Uncle has same symptoms." Past Psychological History: Depression Smoking Status: Former smoker Past Alcohol Use History: None Reported Additional Past Alcohol Use History / Comment(s): Quit smoking in 1996. Past Drug Use History: None Reported - Past Family History Father Family Medical History: Cancer Mother Family Medical History: Cancer Brother(s) Family Medical History: Cancer Medications and Allergies Home Medications Medication Instructions Recorded Confirmed Type Pregabalin [Lyrica] 300 mg PO BID 08/18/17 05/02/18 History Sertraline [Zoloft] 100 mg PO DAILY 08/18/17 05/02/18 History metFORMIN HCL 1,000 mg PO BID 08/18/17 05/02/18 History Aspirin [Adult Low Dose Aspirin EC] 81 mg PO HS 01/29/18 05/02/18 History Fluticasone Nasal [place] [Flonase 2 spr EA NOSTRIL BID PRN 01/29/18 05/02/18 History Nasal [place]] Lisinopril [Prinivil] 10 mg PO QAM 01/29/18 05/02/18 History Montelukast Sodium [Singulair] 10 mg PO DAILY 01/29/18 05/02/18 History Ranitidine HCl [Zantac] 150 mg PO BID 01/29/18 05/02/18 History Simvastatin [Zocor] 40 mg PO DAILY 01/29/18 05/02/18 History Albuterol Nebulized [Ventolin 2.5 mg INHALATION Q4H PRN 05/02/18 05/02/18 History Nebulized] Budesonide [Pulmicort] 1 mg INHALATION RT-BID 05/02/18 05/02/18 History Budesonide/Formoterol Fumarate 2 puff INHALATION RT-BID 05/02/18 05/02/18 History [Symbicort 160-4.5 Mcg Inhaler] Tamsulosin HCl [Flomax] 0.4 mg PO HS 05/02/18 05/02/18 History Allergies Allergy/AdvReac Type Severity Reaction Status Date / Time aspirin Allergy Abdominal Verified 05/02/18 11:38 Pain fentanyl Allergy Hallucinati Verified 05/02/18 11:38 ons gemfibrozil [From Lopid] Allergy Unknown Verified 05/02/18 11:38 Physical Exam Vitals: Vital Signs Temp Pulse Pulse Resp BP BP Pulse Ox 05/02/18 20:53 88 05/02/18 20:46 84 05/02/18 18:00 110 H 17 05/02/18 17:50 97.1 F L 110 H 20 135/93 94 L 05/02/18 17:00 98 7 L 126/97 96 05/02/18 16:30 94 16 109/93 93 L 05/02/18 16:00 106 H 17 99/83 94 L 05/02/18 15:42 104 H 05/02/18 15:33 86 05/02/18 15:30 101 H 18 111/82 95 05/02/18 15:00 99 108/85 93 L 05/02/18 14:30 115 H 111/79 93 L 05/02/18 14:00 93 18 112/71 94 L 05/02/18 11:08 94 L 05/02/18 11:00 98.2 F 84 18 137/88 93 L Intake and Output 05/02/18 05/02/18 05/02/18 06:59 14:59 22:59 Intake Total 986.764 Output Total 300 Balance 686.764 Intake: IV 325 Azithromycin 500 mg In 250 Sodium Chloride 0.9% 250 ml @ 250 mls/hr IVPB DAILY [facility] Rx#:[id number] Sodium Chloride 0.9% 1, 75 000 ml @ 75 mls/hr IV . [id number] [facility] Rx#:[id number] Intake, IV Titration 141.764 Amount Heparin Sod,Pork in 0.45% 141.764 NaCl 25,000 unit In 0.45 % NaCl 1 500ml.bag @ 6.8 UNITS/KG/HR 19.92 mls/hr IV .Q24H [facility] Rx#: [id number] Oral 520 Output: Urine 300 Other: # Voids 1 Weight 146.51 kg 145.4 kg PHYSICAL EXAMINATION: Patient is lying in the bed comfortably, no acute distress, awake alert and oriented.. HEENT: Normocephalic. Neck is supple. Pupils reactive. Nostrils clear. Oral cavity is moist. Ears reveal no drainage. Neck reveals no JVD, carotid bruits, or thyromegaly. CHEST EXAMINATION: Trachea is central. Symmetrical expansion. Lung breen clear to auscultation and percussion. Bibasilar diminished air entry. CARDIAC: Normal S1, S2 with no gallops. No murmurs . Irregular rhythm ABDOMEN: Soft. Bowel sounds normal. No organomegaly. No abdominal bruits. Extremities: reveal no edema. No clubbing or cyanosis Neurologically awake, alert, oriented x3 with well-coordinated movements. No focal deficits noted Skin: No rash or skin lesions. Psychiatric: Coperative. Nonsuicidal. Anxious Musculoskeletal: No joint swelling or deformity. Normal range of motion. Results CBC & Chem 7: 05/03/18 04:14 05/03/18 04:14 Labs: Abnormal Lab Results - Last 24 Hours (Table) 05/02/18 05/02/18 05/02/18 Range/Units 11:33 11:33 11:33 RBC 4.26 L (4.30-5.90) m/uL Hgb 12.4 L (13.0-17.5) gm/dL Lymphocytes # 0.9 L (1.0-4.8) k/uL D-Dimer (<0.60) mg/L FEU Carbon Dioxide 31 H (22-30) mmol/L Creatinine 0.65 L (0.66-1.25) mg/dL Glucose 110 H (74-99) mg/dL POC Glucose (mg/dL) (75-99) mg/dL Total Creatine Kinase 173 H (55-170) U/L CK-MB (CK-2) 5.7 H (0.0-2.4) ng/mL Total Protein 6.0 L (6.3-8.2) g/dL Albumin 3.4 L (3.5-5.0) g/dL 05/02/18 05/02/18 05/02/18 Range/Units 11:33 18:03 20:55 RBC (4.30-5.90) m/uL Hgb (13.0-17.5) gm/dL Lymphocytes # (1.0-4.8) k/uL D-Dimer 0.90 H (<0.60) mg/L FEU Carbon Dioxide (22-30) mmol/L Creatinine (0.66-1.25) mg/dL Glucose (74-99) mg/dL POC Glucose (mg/dL) 255 H 153 H (75-99) mg/dL Total Creatine Kinase (55-170) U/L CK-MB (CK-2) (0.0-2.4) ng/mL Total Protein (6.3-8.2) g/dL Albumin (3.5-5.0) g/dL Thrombosis Risk Factor Assmnt - DVT/VTE Prophylaxis DVT/VTE Prophylaxis: Pharmacologic Prophylaxis ordered - Choose All That Apply Each Factor Represents 1 point: Abnormal pulmonary function (COPD), Obesity ( BMI >25) Other Risk Factors: Yes Each Risk Factor Represents 2 Points: Age 61-74 years Each Risk Factor Represents 3 Points: History of DVT/PE Other congenital or acquired thrombophilia - If yes, enter type in comment: No Thrombosis Risk Factor Assessment Total Risk Factor Score: 7 Thrombosis Risk Factor Assessment Level: High Risk Assessment and Plan Assessment: Right upper lobe multifocal pneumonia. Failed outpatient therapy Atrial flutter with variable AV block Recent COPD/asthma exacerbation and bronchitis Hypertension Hyperlipidemia Memory impairment Osteoarthritis History of pulmonary embolism 1 Obstructive sleep apnea on CPAP Spinal stenosis, degenerative scoliosis, BPH Previous history of smoking between 1996 Morbid obesity BMI 40.2 Plan: Patient will be continued on antibiotics in the form of ceftriaxone and azithromycin. Started on metoprolol and continue the telemetry monitoring. Serial EKG and troponins. Cardiology was consulted. TSH within normal limits. Further recommendations based on the clinical course. Time with Patient: Greater than 30
[2018-05-03] MEDS: ALPRAZolam 0.25 MG TAB PO PRN ×2 (13:25→22:55)
--- NOTE | 2018-05-03 13:43 | ECHOF ---
Referral Reason:aflutter MEASUREMENTS -------- HEIGHT: 188.0 cm WEIGHT: 141.5 kg BP: 108/69 RVIDd: 4.3 cm (< 3.3) IVSd: 1.3 cm (0.6 - 1.1) LVIDd: 2.4 cm (3.9 - 5.3) LVPWd: 1.2 cm (0.6 - 1.1) IVSs: 1.2 cm LVIDs: 1.4 cm LVPWs: 1.3 cm LAESV Index (A-L): 22.80 ml/m Ao Diam: 4.4 cm (2.0 - 3.7) AV Cusp: 1.4 cm (1.5 - 2.6) LA Diam: 2.9 cm (2.7 - 3.8) MV E Sav: 1.28 m/s MV DecT: 152 ms MV A Sav: 0.49 m/s MV E/A Ratio: 2.60 AV maxP.60 mmHg AV meanP.38 mmHg RAP: 15.00 mmHg RVSP: 28.83 mmHg FINDINGS -------- The rhythm appears to be atrial flutter. This was a technically difficult study with suboptimal views. The left ventricular size is normal. There is mild concentric left ventricular hypertrophy. Overa ll left ventricular systolic function is low-normal with, an EF between 50 - 55 %. The right ventricle is severely enlarged. Normal LA size by volume 22+/-6 ml/m2. The right atrium is markedly enlarged. 3 ml of Lumason was utilized for enhancement of images. Aortic valve is trileaflet and is mildly thickened. There is no evidence of aortic regurgitation. There is no evidence of aortic stenosis. The mitral valve leaflets are mildly thickened. There is trace to mild mitral regurgitation. Mild tricuspid regurgitation present. Right ventricular systolic pressure is normal at < 35 mmHg. There is no evidence of pulmonary hypertension. The pulmonic valve was not well visualized. The aortic root is mildy dilated, up to 4.1 cm. The inferior vena cava is dilated with no significant inspiratory collapse which is consistent estima patt right atrial pressure of >20 mmHg. There is no pericardial effusion. CONCLUSIONS -------- 1. The rhythm appears to be atrial flutter. 2. This was a technically difficult study with suboptimal views. 3. The left ventricular size is normal. 4. There is mild concentric left ventricular hypertrophy. 5. Overall left ventricular systolic function is low-normal with, an EF between 50 - 55 %. 6. The right ventricle is severely enlarged. 7. Normal LA size by volume 22+/-6 ml/m2. 8. The right atrium is markedly enlarged. 9. 3 ml of Lumason was utilized for enhancement of images. 10. Aortic valve is trileaflet and is mildly thickened. 11. The mitral valve leaflets are mildly thickened. 12. There is trace to mild mitral regurgitation. 13. Mild tricuspid regurgitation present. 14. Right ventricular systolic pressure is normal at < 35 mmHg. 15. There is no evidence of pulmonary hypertension. 16. The pulmonic valve was not well visualized. 17. The aortic root is mildy dilated, up to 4.1 cm. 18. The inferior vena cava is dilated with no significant inspiratory collapse which is consistent es timated right atrial pressure of >20 mmHg. 19. There is no pericardial effusion. [employer]ING TRUCK DRIVER: Memo Handley RDCS
--- NOTE | 2018-05-03 16:07 | P.CNPUL ---
History of Present Illness Consult date: 05/03/18 Requesting physician: Kandace Espino Reason for consult: dyspnea, abnormal CXR/CT Chief complaint: Palpitations and rapid heart rate History of present illness: This is a very pleasant 63-year-old gentleman who follows with Dr. Louise as his primary care physician. He has a history of diabetes mellitus, hypertension , hyperlipidemia, pulmonary embolism, osteoarthritis, enlarged prostate, spinal stenosis, degenerative scoliosis, bowel resections and multiple hernia repairs. He also has a history of moderate intermittent chronic bronchial asthma and follows with Dr. Srivastava in our office for the same. He is maintained on Symbicort, Singulair him a DuoNeb's. He was last seen 03/22/2018 as he had been having ongoing issues with asthma exacerbation and pulmonary congestion and was treated with steroids and Augmentin. He presented here to the emergency room on 05/02/2018 with complaints of palpitations and fluttering in his chest. He was found to be in atrial flutter admitted to the cardiac floor for the same. He was initially on a heparin drip currently on Eliquis. Echocardiogram revealed preserved left ventricular systolic function with ejection fraction 50-55%. No significant valvular heart disease. No pulmonary hypertension. CT angiogram ruled out pulmonary embolism. There is noted multifocal pneumonia greatest within the right upper lobe and some reactive adenopathy. We are consulted for the same. He is seen today in consultation. He is awake and alert in no acute distress. He is having some dyspnea on minimal exertion. Loose productive cough. No fever, chills or night sweats. No leukocytosis. He has been initiated on ceftriaxone and azithromycin along with bronchodilators. He is maintaining good O2 saturations in the 90s on room air. He's been afebrile. White count 6.8. Hemoglobin 12.0. Creatinine 0.62. Review of Systems 14 point review of system was conducted. All negative other than as mentioned in the HPI. Past Medical History Past Medical History: Asthma, COPD, Diabetes Mellitus, Hyperlipidemia, Hypertension, Memory Impairment, Musculoskeletal Disorder, Osteoarthritis (OA), Pneumonia, Prostate Disorder, Pulmonary Embolus (PE), Skin Disorder, Sleep Apnea /CPAP/BIPAP Additional Past Medical History / Comment(s): Dermatitis, enlarged prostate. PE found in 07/2003 while hospitalized for pneumonia, spinal stenosis, degenerative scoliosis, nerve pain in knees. Positive Cologard Test. History of Any Multi-Drug Resistant Organisms: None Reported Past Surgical History: Bowel Resection, Hernia Repair, Joint Replacement, Orthopedic Surgery Additional Past Surgical History / Comment(s): Bilateral hip replacement 2009, bilateral cataract surgery, hiatal hernia repair, incisional hernia repair , bronchoscopies., colonoscopy Past Anesthesia/Blood Transfusion Reactions: Previous Problems w/ Anesthesia, Family History of Problems w/ Anesthesia Additional Past Anesthesia/Blood Transfusion Reaction / Comment(s): "Problem with being twilighted - become very combative. Slow to wake up. Uncle has same symptoms." Past Psychological History: Depression Smoking Status: Former smoker Past Alcohol Use History: None Reported Additional Past Alcohol Use History / Comment(s): Quit smoking in 1996. Past Drug Use History: None Reported - Past Family History Father Family Medical History: Cancer Mother Family Medical History: Cancer Brother(s) Family Medical History: Cancer Medications and Allergies Home Medications Medication Instructions Recorded Confirmed Type Pregabalin [Lyrica] 300 mg PO BID 08/18/17 05/02/18 History Sertraline [Zoloft] 100 mg PO DAILY 08/18/17 05/02/18 History metFORMIN HCL 1,000 mg PO BID 08/18/17 05/02/18 History Aspirin [Adult Low Dose Aspirin EC] 81 mg PO HS 01/29/18 05/02/18 History Fluticasone Nasal [place] [Flonase 2 spr EA NOSTRIL BID PRN 01/29/18 05/02/18 History Nasal [place]] Lisinopril [Prinivil] 10 mg PO QAM 01/29/18 05/02/18 History Montelukast Sodium [Singulair] 10 mg PO DAILY 01/29/18 05/02/18 History Ranitidine HCl [Zantac] 150 mg PO BID 01/29/18 05/02/18 History Simvastatin [Zocor] 40 mg PO DAILY 01/29/18 05/02/18 History Albuterol Nebulized [Ventolin 2.5 mg INHALATION Q4H PRN 05/02/18 05/02/18 History Nebulized] Budesonide [Pulmicort] 1 mg INHALATION RT-BID 05/02/18 05/02/18 History Budesonide/Formoterol Fumarate 2 puff INHALATION RT-BID 05/02/18 05/02/18 History [Symbicort 160-4.5 Mcg Inhaler] Tamsulosin HCl [Flomax] 0.4 mg PO HS 05/02/18 05/02/18 History Allergies Allergy/AdvReac Type Severity Reaction Status Date / Time aspirin Allergy Abdominal Verified 05/02/18 11:38 Pain fentanyl Allergy Hallucinati Verified 05/02/18 11:38 ons gemfibrozil [From Lopid] Allergy Unknown Verified 05/02/18 11:38 Physical Exam Vitals: Vital Signs Temp Pulse Pulse Resp BP BP Pulse Ox 05/03/18 12:00 97.7 F 71 17 102/58 94 L 05/03/18 11:27 70 17 05/03/18 08:00 97.7 F 91 17 108/69 92 L 05/03/18 07:42 90 05/03/18 07:27 90 05/03/18 04:00 78 18 111/70 92 L 05/03/18 00:00 98 22 101/65 92 L 05/02/18 20:53 88 05/02/18 20:46 84 05/02/18 20:00 98.3 F 108 H 20 122/82 91 L 05/02/18 18:00 110 H 17 05/02/18 17:50 97.1 F L 110 H 20 135/93 94 L 05/02/18 17:00 98 7 L 126/97 96 05/02/18 16:30 94 16 109/93 93 L 05/02/18 16:00 106 H 17 99/83 94 L 05/02/18 15:42 104 H 05/02/18 15:33 86 05/02/18 15:30 101 H 18 111/82 95 05/02/18 15:00 99 108/85 93 L Intake and Output 05/02/18 05/03/18 05/03/18 22:59 06:59 14:59 Intake Total 986.764 735.956 8771.161 Output Total 300 1325 Balance 686.764 -2121.967 6404.161 Intake: IV 325 825 Azithromycin 500 mg In 250 250 Sodium Chloride 0.9% 250 ml @ 250 mls/hr IVPB DAILY [facility] Rx#:[id number] Sodium Chloride 0.9% 1, 75 525 000 ml @ 75 mls/hr IV . [id number] [facility] Rx#:[id number] cefTRIAXone 1,000 mg In 50 Sodium Chloride 0.9% 50 ml @ 100 mls/hr IVPB Q24HR [facility] Rx#:[id number] Intake, IV Titration 141.764 227.075 131.161 Amount Heparin Sod,Pork in 0.45% 141.764 227.075 131.161 NaCl 25,000 unit In 0.45 % NaCl 1 500ml.bag @ 6.8 UNITS/KG/HR 19.92 mls/hr IV .Q24H [facility] Rx#: [id number] Oral 520 700 Output: Urine 300 1325 Other: # Voids 1 1 4 Weight 145.4 kg 141.9 kg - Constitutional General appearance: no acute distress, obese - EENT Eyes: EOMI, PERRLA ENT: hearing grossly normal Ears: bilateral: normal - Neck Neck: normal ROM Carotids: bilateral: upstroke normal Thyroid: bilateral: normal size - Respiratory Respiratory: right: rhonchi - Cardiovascular Rhythm: irregularly irregular Heart sounds: normal: S1, S2 - Gastrointestinal General gastrointestinal: normal bowel sounds, ventral hernia - Genitourinary Male genitourinary: enlarged prostate - Integumentary Integumentary: normal turgor - Neurologic Neurologic: CNII-XII intact - Musculoskeletal Musculoskeletal: generalized weakness - Psychiatric Psychiatric: A&O x's 3, appropriate affect, intact judgment & insight Results - Laboratory Findings CBC and BMP: 05/03/18 04:14 05/03/18 04:14 PT/INR, D-dimer PT 10.7 sec (9.0-12.0) 05/02/18 11:33 INR 1.1 (<1.2) 05/02/18 11:33 D-Dimer 0.90 mg/L FEU (<0.60) H 05/02/18 11:33 Abnormal lab findings: Abnormal Labs 05/02/18 05/02/18 05/02/18 11:33 11:33 11:33 RBC 4.26 L Hgb 12.4 L Hct Lymphocytes # 0.9 L APTT D-Dimer Carbon Dioxide 31 H Creatinine 0.65 L Glucose 110 H POC Glucose (mg/dL) Hemoglobin A1c Total Creatine Kinase 173 H CK-MB (CK-2) 5.7 H Total Protein 6.0 L Albumin 3.4 L 05/02/18 05/02/18 05/02/18 11:33 18:03 20:00 RBC Hgb Hct Lymphocytes # APTT D-Dimer 0.90 H Carbon Dioxide Creatinine Glucose POC Glucose (mg/dL) 255 H Hemoglobin A1c 6.4 H Total Creatine Kinase CK-MB (CK-2) Total Protein Albumin 05/02/18 05/03/18 05/03/18 20:55 04:14 04:14 RBC 4.04 L Hgb 12.0 L Hct 37.1 L Lymphocytes # 0.6 L APTT 30.9 H D-Dimer Carbon Dioxide Creatinine Glucose POC Glucose (mg/dL) 153 H Hemoglobin A1c Total Creatine Kinase CK-MB (CK-2) Total Protein Albumin 05/03/18 05/03/18 04:14 05:48 RBC Hgb Hct Lymphocytes # APTT D-Dimer Carbon Dioxide Creatinine 0.62 L Glucose 148 H POC Glucose (mg/dL) 140 H Hemoglobin A1c Total Creatine Kinase CK-MB (CK-2) Total Protein Albumin - Diagnostic Findings Chest x-ray: image reviewed CT scan - chest: image reviewed Assessment and Plan Assessment: Impression: #1 Palpitations secondary to new onset of atrial flutter. #2 Dyspnea secondary to above as well as a multifocal pneumonia greatest within the right upper lobe with reactive adenopathy. #3 Diabetes mellitus. #4 Hypertension. #5 Hyperlipidemia. #6 Pulmonary embolism. #7 Benign prosthetic hypertrophy. #8 history of mild intermittent asthma. #7 Ventral hernias secondary to multiple hernia repairs and bowel resection. Plan: The patient was seen and evaluated by Dr. Aguirre. Chest x-ray CAT scan and labs all reviewed. We'll continue ceftriaxone and azithromycin for now. Continue with bronchodilators. He's been seen by cardiology and initiated on Eliquis. We will continue to follow and make further recommendations based on his clinical status. I, the cosigning physician, performed a history & physical examination of the patient. Lungs sounds few scattered rhonchi more so on the right. Maintaining good O2 saturations in the 90s on room air. I discussed the assessment and plan of care with my nurse practitioner, Narcisa Reyez. I attest to the above note as dictated by her. Time with Patient: Greater than 30
[2018-05-03 16:44] LABS: Glucose,Whole Blood 110 mg/dL (75-99)
[2018-05-03 20:54] LABS: Glucose,Whole Blood 127 mg/dL (75-99)
--- NOTE | 2018-05-04 01:27 | P.PN ---
Subjective Progress Note Date: 05/03/18 Principal diagnosis: Multifocal pneumonia Atrial flutter Patient is a 63-year-old male with a known history of COPD, asthma, diabetes type 2, hyperlipidemia, hypertension and history of pulmonary embolism came to ER with the complaints of shortness of breath and anxiety and palpitations. Patient says that during last few days he is very weak. Patient also says that he has been on antibiotics and steroids since last February for his asthma/ COPD exacerbation. Patient says that he is not getting any better. And last few days his condition got worse and presented to outside hospital where he was noted to be in flutter. Patient was sent to ER for further evaluation. Denied any history of arrhythmia in the past. Patient does not have a history of coronary artery disease. Patient had history of pulmonary embolism several years back after pneumonia. Denied any fever or chills. Patient does have cough without much sputum production. No nausea vomiting or abdominal pain. No diarrhea. Chest x-ray showed diffuse right upper lobe infiltrate underlying neoplastic process cannot be excluded. CT angiogram of the chest showed no evidence of pulmonary embolism. Multifocal pneumonia greatest within the right upper lobe with probable reactive adenopathy. Correlate clinically and progress studies are recommended. EKG showed atrial flutter with variable AV block TSH 1.7, BNP 579 troponin 1 negative 05/03/2018 Patient did improve symptomatically. Rate is controlled. No complaints of chest pain. Shortness of breath is improving otherwise. Patient is being continued on antibiotics. Patient was seen by cardiology and 2-D echo cardiac was ordered. Started on anticoagulation the form of eliquis. No fever no chills. No nausea vomiting or abdominal pain. Current medications reviewed Objective - Vital Signs Vital signs: Vital Signs Temp 97.7 F 05/03/18 08:00 Pulse 92 05/03/18 11:27 Resp 17 05/03/18 11:27 BP 108/69 05/03/18 08:00 Pulse Ox 92 L 05/03/18 08:00 Intake & Output 05/02/18 05/03/18 05/03/18 18:59 06:59 18:59 Intake Total 845 368.839 371.161 Output Total 1625 Balance 845 -1256.161 371.161 Weight 145.4 kg 141.9 kg Intake: IV 325 Azithromycin 500 mg In 250 Sodium Chloride 0.9% 250 ml @ 250 mls/hr IVPB DAILY [facility] Rx#:[id number] Sodium Chloride 0.9% 1, 75 000 ml @ 75 mls/hr IV . [id number] [facility] Rx#:[id number] Intake, IV Titration 368.839 131.161 Amount Heparin Sod,Pork in 0.45% 368.839 131.161 NaCl 25,000 unit In 0.45 % NaCl 1 500ml.bag @ 6.8 UNITS/KG/HR 19.92 mls/hr IV .Q24H [facility] Rx#: [id number] Oral 520 240 Output: Urine 1625 Other: # Voids 1 1 - Exam PHYSICAL EXAMINATION: Patient is lying in the bed comfortably, no acute distress, awake alert and oriented.. HEENT: Normocephalic. Neck is supple. Pupils reactive. Nostrils clear. Oral cavity is moist. Ears reveal no drainage. Neck reveals no JVD, carotid bruits, or thyromegaly. CHEST EXAMINATION: Trachea is central. Symmetrical expansion. Lung breen clear to auscultation and percussion. CARDIAC: Normal S1, S2 with no gallops. No murmurs ABDOMEN: Soft. Bowel sounds normal. No organomegaly. No abdominal bruits. Extremities: reveal no edema. No clubbing or cyanosis Neurologically awake, alert, oriented x3 with well-coordinated movements. No focal deficits noted Skin: No rash or skin lesions. Psychiatric: Coperative. Nonsuicidal Musculoskeletal: No joint swelling or deformity. Normal range of motion. - Labs CBC & Chem 7: 05/03/18 04:14 05/03/18 04:14 Labs: Abnormal Lab Results - Last 24 Hours (Table) 05/02/18 05/02/18 05/02/18 Range/Units 11:33 11:33 11:33 RBC (4.30-5.90) m/uL Hgb (13.0-17.5) gm/dL Hct (39.0-53.0) % Lymphocytes # (1.0-4.8) k/uL APTT (22.0-30.0) sec D-Dimer 0.90 H (<0.60) mg/L FEU Carbon Dioxide 31 H (22-30) mmol/L Creatinine 0.65 L (0.66-1.25) mg/dL Glucose 110 H (74-99) mg/dL POC Glucose (mg/dL) (75-99) mg/dL Hemoglobin A1c (4.0-6.0) % Total Creatine Kinase 173 H (55-170) U/L CK-MB (CK-2) 5.7 H (0.0-2.4) ng/mL Total Protein 6.0 L (6.3-8.2) g/dL Albumin 3.4 L (3.5-5.0) g/dL 05/02/18 05/02/18 05/02/18 Range/Units 18:03 20:00 20:55 RBC (4.30-5.90) m/uL Hgb (13.0-17.5) gm/dL Hct (39.0-53.0) % Lymphocytes # (1.0-4.8) k/uL APTT (22.0-30.0) sec D-Dimer (<0.60) mg/L FEU Carbon Dioxide (22-30) mmol/L Creatinine (0.66-1.25) mg/dL Glucose (74-99) mg/dL POC Glucose (mg/dL) 255 H 153 H (75-99) mg/dL Hemoglobin A1c 6.4 H (4.0-6.0) % Total Creatine Kinase (55-170) U/L CK-MB (CK-2) (0.0-2.4) ng/mL Total Protein (6.3-8.2) g/dL Albumin (3.5-5.0) g/dL 05/03/18 05/03/18 05/03/18 Range/Units 04:14 04:14 04:14 RBC 4.04 L (4.30-5.90) m/uL Hgb 12.0 L (13.0-17.5) gm/dL Hct 37.1 L (39.0-53.0) % Lymphocytes # 0.6 L (1.0-4.8) k/uL APTT 30.9 H (22.0-30.0) sec D-Dimer (<0.60) mg/L FEU Carbon Dioxide (22-30) mmol/L Creatinine 0.62 L (0.66-1.25) mg/dL Glucose 148 H (74-99) mg/dL POC Glucose (mg/dL) (75-99) mg/dL Hemoglobin A1c (4.0-6.0) % Total Creatine Kinase (55-170) U/L CK-MB (CK-2) (0.0-2.4) ng/mL Total Protein (6.3-8.2) g/dL Albumin (3.5-5.0) g/dL 05/03/18 Range/Units 05:48 RBC (4.30-5.90) m/uL Hgb (13.0-17.5) gm/dL Hct (39.0-53.0) % Lymphocytes # (1.0-4.8) k/uL APTT (22.0-30.0) sec D-Dimer (<0.60) mg/L FEU Carbon Dioxide (22-30) mmol/L Creatinine (0.66-1.25) mg/dL Glucose (74-99) mg/dL POC Glucose (mg/dL) 140 H (75-99) mg/dL Hemoglobin A1c (4.0-6.0) % Total Creatine Kinase (55-170) U/L CK-MB (CK-2) (0.0-2.4) ng/mL Total Protein (6.3-8.2) g/dL Albumin (3.5-5.0) g/dL Assessment and Plan Assessment: Right upper lobe multifocal pneumonia. Failed outpatient therapy Atrial flutter with variable AV block Recent COPD/asthma exacerbation and bronchitis Hypertension Hyperlipidemia Memory impairment Osteoarthritis History of pulmonary embolism 1 Obstructive sleep apnea on CPAP Spinal stenosis, degenerative scoliosis, BPH Previous history of smoking between 1996 Morbid obesity BMI 40.2 Plan: Patient will be continued on antibiotics in the form of ceftriaxone and azithromycin. Started on metoprolol and continue the telemetry monitoring. Started on anticoagulation with eliquis, Serial EKG and troponins negative.. Cardiology was consulted. TSH within normal limits. Further recommendations based on the clinical course. Time with Patient: Greater than 30
[2018-05-04 05:40] LABS: Glucose,Whole Blood 125 mg/dL (75-99)
[2018-05-04] MEDS: INSULIN ASPART 100 UNIT/ML 1 ML 10 ML VIAL SQ SCH ×2 (06:01→11:29)
[2018-05-04 06:23] LABS: Glucose,Whole Blood 118 mg/dL (75-99)
[2018-05-04 06:46] LABS: Basophils # (A) 0.1 k/uL (0-0.2); Basophils % (A) 1 %; Eosinophils # (A) 0.1 k/uL (0-0.7); Eosinophils % (A) 2 %; HCT 38.2 % (39.0-53.0); Hypochromasia Slight; Lymphocytes # (A) 1.4 k/uL (1.0-4.8); Lymphocytes % (A) 23 %; MCH 29.4 pg (25.0-35.0); MCHC 31.3 g/dL (31.0-37.0); MCV 93.6 fL (80.0-100.0); Mean Platelet Volume 7.9; Monocytes # (A) 0.5 k/uL (0-1.0); Monocytes % (A) 8 %; Neutrophils % (A) 64 %; Platelet Count 280 k/uL (150-450); RBC 4.08 m/uL (4.30-5.90); RDW 14.3 % (11.5-15.5); WBC 6.3 k/uL (3.8-10.6)
[2018-05-04] MEDS: BUDESONIDE 1 MG/2 ML NEBU INHALATION SCH (08:05)
[2018-05-04] MEDS: ALBUTEROL NEBULIZED 2.5 MG/3 ML INHALATION PRN (08:05)
[2018-05-04] MEDS: PREGABALIN 100 MG CAP PO SCH (08:50)
[2018-05-04] MEDS: METOPROLOL TARTRATE 12.5 MG TAB PO SCH (08:50)
[2018-05-04] MEDS: FAMOTIDINE 20 MG TAB PO SCH (08:50)
[2018-05-04] MEDS: LISINOPRIL 10 MG TAB PO SCH (08:51)
[2018-05-04] MEDS: ACETAMINOPHEN TAB 325 MG TAB PO PRN (08:51)
[2018-05-04] MEDS: MONTELUKAST 10 MG TAB PO SCH (08:51)
[2018-05-04] MEDS: APIXABAN 5 MG TAB PO SCH (08:51)
[2018-05-04] MEDS: AZITHROMYCIN 500 MG in SODIUM CHLORIDE 0.9% 250 ML IVPB SCH (10:31)
[2018-05-04 11:18] VITALS: BP 95/62; PULSE 74; RESP 17; TEMP 97
[2018-05-04 11:27] LABS: Glucose,Whole Blood 102 mg/dL (75-99)
--- NOTE | 2018-05-04 14:27 | P.PN ---
Subjective This is a pleasant 63-year-old male past medical history significant for COPD, diabetes mellitus, COPD, obstuctive sleep apnea, asthma, hypertension and dyslipidemia. He was sent into the hospital by his primary care physician where he was found to be in atrial flutter. He has been started on oral anticoagulation. Echocardiogram obtained reveals preserved left ventricular systolic function with ejection fraction 50-55%, dilated aortic root 4.1 cm and mild tricuspid regurgitation. Laboratory data reviewed, hemoglobin 12, platelets 280. Blood pressure 95/62 heart rate 74 afebrile maintaining oxygen saturation on room air. Telemetry tracings indicate ongoing atrial flutter. Currently maintained on Eliquis, lisinopril 10 mg daily and Lopressor 12.5 mg twice a day. He denies symptoms of chest discomfort, dizziness, palpitations or shortness of breath. GENERAL: Well-appearing, well-nourished and in no acute distress. NECK: Supple without JVD or thyromegaly. LUNGS: Breath sounds clear to auscultation bilaterally. Respiration equal and unlabored. No wheezes, rales or rhonchi. HEART: Irregular rate and rhythm without murmurs, rubs or gallops. S1 and S2 heard. EXTREMITIES: Normal range of motion, no edema. No clubbing or cyanosis. Peripheral pulses intact. ASSESSMENT New onset typical atrial flutter with controlled rate Multifocal pneumonia Hypertension Dyslipidemia Diabetes mellitus Mobid obesity, BMI 40 PLAN Stable from a cardiac perspective and hemodynamically stable. Follow up with Dr. Mahmood in 2 weeks. Continue anticoagulation for thromboembolic protection. Nurse Practitioner note has been reviewed, I agree with a documented findings and plan of care. Patient was seen and examined. Objective - Vital Signs Vital signs: Vital Signs Temp 97.0 F L 05/04/18 11:08 Pulse 74 05/04/18 12:00 Resp 17 05/04/18 12:00 BP 95/62 05/04/18 11:08 Pulse Ox 96 05/04/18 11:08 Intake & Output 05/03/18 05/04/18 05/04/18 18:59 06:59 18:59 Intake Total 1896.161 820 Output Total 250 Balance 1896.161 -250 820 Weight 142.8 kg Intake: IV 825 20 Azithromycin 500 mg In 250 Sodium Chloride 0.9% 250 ml @ 250 mls/hr IVPB DAILY [facility] Rx#:[id number] Invasive Line 1 20 Sodium Chloride 0.9% 1, 525 000 ml @ 75 mls/hr IV . [id number] [facility] Rx#:[id number] cefTRIAXone 1,000 mg In 50 Sodium Chloride 0.9% 50 ml @ 100 mls/hr IVPB Q24HR [facility] Rx#:[id number] Intake, IV Titration 131.161 300 Amount Azithromycin 500 mg In 250 Sodium Chloride 0.9% 250 ml @ 250 mls/hr IVPB DAILY [facility] Rx#:[id number] Heparin Sod,Pork in 0.45% 131.161 NaCl 25,000 unit In 0.45 % NaCl 1 500ml.bag @ 6.8 UNITS/KG/HR 19.92 mls/hr IV .Q24H [facility] Rx#: [id number] cefTRIAXone 1,000 mg In 50 Sodium Chloride 0.9% 50 ml @ 100 mls/hr IVPB Q24HR [facility] Rx#:[id number] Oral 940 500 Output: Urine 250 Other: # Voids 4 - Labs CBC & Chem 7: 05/04/18 05:40 05/03/18 04:14 Labs: Abnormal Lab Results - Last 24 Hours (Table) 05/03/18 05/03/18 05/04/18 Range/Units 16:41 20:52 05:39 RBC (4.30-5.90) m/uL Hgb (13.0-17.5) gm/dL Hct (39.0-53.0) % POC Glucose (mg/dL) 110 H 127 H 125 H (75-99) mg/dL 05/04/18 05/04/18 05/04/18 Range/Units 05:40 06:22 11:24 RBC 4.08 L (4.30-5.90) m/uL Hgb 12.0 L (13.0-17.5) gm/dL Hct 38.2 L (39.0-53.0) % POC Glucose (mg/dL) 118 H 102 H (75-99) mg/dL Microbiology - Last 24 Hours (Table) 05/03/18 13:22 Gram Stain - Preliminary Sputum Sputum Culture - Preliminary
--- NOTE | 2018-05-04 16:24 | P.PN ---
Subjective Progress Note Date: 05/04/18 Principal diagnosis: Atrial flutter This is a very pleasant 63-year-old gentleman who follows with Dr. Louise as his primary care physician. He has a history of diabetes mellitus, hypertension , hyperlipidemia, pulmonary embolism, osteoarthritis, enlarged prostate, spinal stenosis, degenerative scoliosis, bowel resections and multiple hernia repairs. He also has a history of moderate intermittent chronic bronchial asthma and follows with Dr. Srivastava in our office for the same. He is maintained on Symbicort, Singulair him a DuoNeb's. He was last seen 03/22/2018 as he had been having ongoing issues with asthma exacerbation and pulmonary congestion and was treated with steroids and Augmentin. He presented here to the emergency room on 05/02/2018 with complaints of palpitations and fluttering in his chest. He was found to be in atrial flutter admitted to the cardiac floor for the same. He was initially on a heparin drip currently on Eliquis. Echocardiogram revealed preserved left ventricular systolic function with ejection fraction 50-55%. No significant valvular heart disease. No pulmonary hypertension. CT angiogram ruled out pulmonary embolism. There is noted multifocal pneumonia greatest within the right upper lobe and some reactive adenopathy. We are consulted for the same. He is seen today in consultation. He is awake and alert in no acute distress. He is having some dyspnea on minimal exertion. Loose productive cough. No fever, chills or night sweats. No leukocytosis. He has been initiated on ceftriaxone and azithromycin along with bronchodilators. He is maintaining good O2 saturations in the 90s on room air. He's been afebrile. White count 6.8. Hemoglobin 12.0. Creatinine 0.62. The patient is seen again today 05/04/2018 in follow-up on the selective care unit. He is currently awake and alert in no acute distress. He denies any worsening shortness of breath, cough or congestion. He is maintaining good O2 saturations in the upper 90s on room air. He's been afebrile. He remains in atrial flutter with a controlled ventricular response. He was initiated on beta blockers. Initiated on Eliquis. White count 6.3. Hemoglobin 12.0. Glucose 125 Objective - Vital Signs Vital signs: Vital Signs Temp 97.0 F L 05/04/18 11:08 Pulse 74 05/04/18 12:00 Resp 17 05/04/18 12:00 BP 95/62 05/04/18 11:08 Pulse Ox 96 05/04/18 11:08 Intake & Output 05/03/18 05/04/18 05/04/18 18:59 06:59 18:59 Intake Total 1896.161 840 Output Total 250 Balance 1896.161 -250 840 Weight 142.8 kg Intake: IV 825 40 Azithromycin 500 mg In 250 Sodium Chloride 0.9% 250 ml @ 250 mls/hr IVPB DAILY [facility] Rx#:[id number] Invasive Line 1 40 Sodium Chloride 0.9% 1, 525 000 ml @ 75 mls/hr IV . [id number] [facility] Rx#:[id number] cefTRIAXone 1,000 mg In 50 Sodium Chloride 0.9% 50 ml @ 100 mls/hr IVPB Q24HR [facility] Rx#:[id number] Intake, IV Titration 131.161 300 Amount Azithromycin 500 mg In 250 Sodium Chloride 0.9% 250 ml @ 250 mls/hr IVPB DAILY [facility] Rx#:[id number] Heparin Sod,Pork in 0.45% 131.161 NaCl 25,000 unit In 0.45 % NaCl 1 500ml.bag @ 6.8 UNITS/KG/HR 19.92 mls/hr IV .Q24H [facility] Rx#: [id number] cefTRIAXone 1,000 mg In 50 Sodium Chloride 0.9% 50 ml @ 100 mls/hr IVPB Q24HR [facility] Rx#:[id number] Oral 940 500 Output: Urine 250 Other: # Voids 4 - Exam - Constitutional General appearance: no acute distress, obese - EENT Eyes: EOMI, PERRLA ENT: hearing grossly normal Ears: bilateral: normal - Neck Neck: normal ROM Carotids: bilateral: upstroke normal Thyroid: bilateral: normal size - Respiratory Respiratory: right: rhonchi - Cardiovascular Rhythm: irregularly irregular Heart sounds: normal: S1, S2 - Gastrointestinal General gastrointestinal: normal bowel sounds, ventral hernia - Genitourinary Male genitourinary: enlarged prostate - Integumentary Integumentary: normal turgor - Neurologic Neurologic: CNII-XII intact - Musculoskeletal Musculoskeletal: generalized weakness - Psychiatric Psychiatric: A&O x's 3, appropriate affect, intact judgment & insight - Labs CBC & Chem 7: 05/04/18 05:40 05/03/18 04:14 Labs: Abnormal Lab Results - Last 24 Hours (Table) 05/03/18 05/03/18 05/04/18 Range/Units 16:41 20:52 05:39 RBC (4.30-5.90) m/uL Hgb (13.0-17.5) gm/dL Hct (39.0-53.0) % POC Glucose (mg/dL) 110 H 127 H 125 H (75-99) mg/dL 05/04/18 05/04/18 05/04/18 Range/Units 05:40 06:22 11:24 RBC 4.08 L (4.30-5.90) m/uL Hgb 12.0 L (13.0-17.5) gm/dL Hct 38.2 L (39.0-53.0) % POC Glucose (mg/dL) 118 H 102 H (75-99) mg/dL Microbiology - Last 24 Hours (Table) 05/03/18 13:22 Gram Stain - Preliminary Sputum Sputum Culture - Preliminary Assessment and Plan Assessment: Impression: #1 Palpitations secondary to new onset of atrial flutter. Initiated on beta blockers and Eliquis. #2 Dyspnea secondary to above as well as a multifocal pneumonia greatest within the right upper lobe with reactive adenopathy. #3 Diabetes mellitus. #4 Hypertension. #5 Hyperlipidemia. #6 Pulmonary embolism. #7 Benign prosthetic hypertrophy. #8 history of mild intermittent asthma. #7 Ventral hernias secondary to multiple hernia repairs and bowel resection. Plan: The patient was seen and evaluated by Dr. Aguirre. He is cleared for discharge from the pulmonary standpoint. He'll follow up with Dr. Srivastava in our office in 1 to 2 week's time. We will repeat a chest x-ray then. Complete a course of antibiotics. He is encouraged to call sooner with any recurrence of symptoms or other questions or concerns. I, the cosigning physician, performed a history & physical examination of the patient. Lungs sounds few scattered rhonchi more so on the right. Maintaining good O2 saturations in the 90s on room air. I discussed the assessment and plan of care with my nurse practitioner, Narcisa Reyez. I attest to the above note as dictated by her.
== END 2018-05-04 16:10 | disposition home or self-care (01) | DRG 308 ==
LOC: EC 10:56 → 3SCARD 15:16
PROVIDERS: ADMIT Internal Medicine; ATTEND Internal Medicine
DX: I48.3 Typical atrial flutter (principal); J18.9 Pneumonia, unspecified organism; J44.0 Chronic obstructive pulmonary disease with (acute) lower respiratory infection; J44.1 Chronic obstructive pulmonary disease with (acute) exacerbation; J45.21 Mild intermittent asthma with (acute) exacerbation; Z68.41 Body mass index [BMI] 40.0-44.9, adult; E11.9 Type 2 diabetes mellitus without complications; E66.01 Morbid (severe) obesity due to excess calories; E78.5 Hyperlipidemia, unspecified; F32.9 Major depressive disorder, single episode, unspecified; I44.30 Unspecified atrioventricular block; I07.1 Rheumatic tricuspid insufficiency; I77.810 Thoracic aortic ectasia; G47.33 Obstructive sleep apnea (adult) (pediatric); F41.9 Anxiety disorder, unspecified; I10 Essential (primary) hypertension; K43.9 Ventral hernia without obstruction or gangrene; N40.0 Benign prostatic hyperplasia without lower urinary tract symptoms; M19.90 Unspecified osteoarthritis, unspecified site; M48.00 Spinal stenosis, site unspecified; M41.80 Other forms of scoliosis, site unspecified; Z79.899 Other long term (current) drug therapy; Z86.711 Personal history of pulmonary embolism; Z87.891 Personal history of nicotine dependence; Z96.643 Presence of artificial hip joint, bilateral; Z79.51 Long term (current) use of inhaled steroids; Z79.82 Long term (current) use of aspirin; Z79.84 Long term (current) use of oral hypoglycemic drugs; Z98.42 Cataract extraction status, left eye; Z98.41 Cataract extraction status, right eye; Z88.5 Allergy status to narcotic agent; Z88.8 Allergy status to other drugs, medicaments and biological substances
CPT/HCPCS: 36415; 71046; 71275; 80048; 80053; 82550; 82553; 83036; 83735; 83880; 84443; 84484; 85025; 85379; 85610; 85730; 87070; 87205; 93005; 93306; 94640; 96365; 96366; 96368; 96375; 96376; 99285

== ENCOUNTER → 2018-06-13 | Outpatient (CLI) | payer MEDICARE ==
[2018-06-13 13:01] LABS: HCT 42.4 % (39.0-53.0); HGB 13.9 gm/dL (13.0-17.5); MCH 29.5 pg (25.0-35.0); MCHC 32.7 g/dL (31.0-37.0); MCV 90.2 fL (80.0-100.0); Mean Platelet Volume 8.9; Platelet Count 196 k/uL (150-450); RDW 15.5 % (11.5-15.5); WBC 8.5 k/uL (3.8-10.6)
[2018-06-13 13:16] LABS: Anion Gap 6 mmol/L; Blood Urea Nitrogen 18 mg/dL (9-20); Carbon Dioxide 32 mmol/L (22-30); Chloride 103 mmol/L (98-107); Potassium 4.5 mmol/L (3.5-5.1); Sodium 141 mmol/L (137-145)
== END ==
LOC: LABPAT 11:32
PROVIDERS: ATTEND Internal Medicine Interventional Cardiology
DX: Z01.812 Encounter for preprocedural laboratory examination (principal); I48.0 Paroxysmal atrial fibrillation; I10 Essential (primary) hypertension; E78.1 Pure hyperglyceridemia
CPT/HCPCS: 36415; 80051; 82565; 84520; 85027

== ENCOUNTER 2018-06-19 18:37 | Inpatient (IN) | payer MEDICARE ==
[2018-06-19] MEDS ORDERED: ACETAMINOPHEN TAB 500 MG TAB PO STA (19:37)
[2018-06-19] MEDS ORDERED: IBUPROFEN 800 MG TAB PO STA (19:37)
[2018-06-19] MEDS ORDERED: IPRATROPIUM 0.5 MG/2.5 ML NEBU INHALATION STA (19:37)
[2018-06-19] MEDS ORDERED: DILTIAZEM DRIP BOLUS FROM BAG 1 MG SOLN IV ONE (19:44)
[2018-06-19] MEDS: ALBUTEROL NEBULIZED 2.5 MG/3 ML INHALATION STA (19:56)
[2018-06-19 20:08] LABS: Basophils % (A) 0 %; Eosinophils # (A) 0.1 k/uL (0-0.7); Eosinophils % (A) 1 %; HCT 41.9 % (39.0-53.0); HGB 13.2 gm/dL (13.0-17.5); Lymphocytes # (A) 0.7 k/uL (1.0-4.8); Lymphocytes % (A) 5 %; MCH 28.1 pg (25.0-35.0); MCHC 31.5 g/dL (31.0-37.0); MCV 89.3 fL (80.0-100.0); Mean Platelet Volume 8.7; Monocytes # (A) 0.9 k/uL (0-1.0); Monocytes % (A) 6 %; Neutrophils # (A) 12.6 k/uL (1.3-7.7); Neutrophils % (A) 87 %; Platelet Count 188 k/uL (150-450); RDW 15.6 % (11.5-15.5); WBC 14.5 k/uL (3.8-10.6)
[2018-06-19 20:17] LABS: ALT 28 U/L (21-72); AST 43 U/L (17-59); Albumin 3.6 g/dL (3.5-5.0); Alkaline Phosphatase 77 U/L (38-126); Anion Gap 11 mmol/L; Blood Urea Nitrogen 17 mg/dL (9-20); Calcium 9.6 mg/dL (8.4-10.2); Carbon Dioxide 24 mmol/L (22-30); Chloride 104 mmol/L (98-107); Glucose 127 mg/dL (74-99); Magnesium 1.9 mg/dL (1.6-2.3); Potassium 4.3 mmol/L (3.5-5.1); Sodium 139 mmol/L (137-145); Total Bilirubin 1.2 mg/dL (0.2-1.3); Total Protein 6.2 g/dL (6.3-8.2)
[2018-06-19 20:18] LABS: Partial Thromboplastin Time 29.4 sec (22.0-30.0); Prothrombin Time 10.7 sec (9.0-12.0)
--- NOTE | 2018-06-19 20:29 | ED ---
SOB HPI - General Chief Complaint: Shortness of Breath Stated Complaint: BARRETT, AFIB Time Seen by Provider: 06/19/18 19:36 Source: patient, family, RN notes reviewed, old records reviewed Mode of arrival: ambulatory Limitations: no limitations - History of Present Illness Initial Comments: This is a 63-year-old male. Patient presents today for evaluation of cough congestion shortness of breath. Weakness and fevers chills and body aches. Patient denies chest pain. Patient feels like his heart is racing, he is very short of breath especially with exertion. No recent travel history no sick contacts. Does admit to positive cough or congestion. he does have recent hospitalization less than 3 months ago MD Complaint: shortness of breath, cough -: days(s) Radiation: other (No pain) Severity: moderate Severity scale (1-10): 4 Consistency: constant Improves With: rest, medication Worsens With: exertion, movement Known History Of: COPD, recurrent pneumonia Context: recent URI Associated Symptoms: fever, cough, sputum production Treatments Prior to Arrival: none - Related Data Home Medications Medication Instructions Recorded Confirmed Pregabalin [Lyrica] 300 mg PO BID 08/18/17 06/19/18 Sertraline [Zoloft] 100 mg PO DAILY 08/18/17 06/19/18 metFORMIN HCL 1,000 mg PO BID 08/18/17 06/19/18 Fluticasone Nasal [place] [Flonase 2 spr EA NOSTRIL BID PRN 01/29/18 06/19/18 Nasal [place]] Montelukast Sodium [Singulair] 10 mg PO DAILY 01/29/18 06/19/18 Ranitidine HCl [Zantac] 150 mg PO BID 01/29/18 06/19/18 Simvastatin [Zocor] 40 mg PO DAILY 01/29/18 06/19/18 Albuterol Nebulized [Ventolin 2.5 mg INHALATION RT-Q4H PRN 05/02/18 06/19/18 Nebulized] Budesonide [Pulmicort] 1 mg INHALATION RT-BID 05/02/18 06/19/18 Budesonide/Formoterol Fumarate 2 puff INHALATION RT-BID 05/02/18 06/19/18 [Symbicort 160-4.5 Mcg Inhaler] Tamsulosin HCl [Flomax] 0.4 mg PO HS 05/02/18 06/19/18 Previous Rx's Medication Instructions Recorded Apixaban [Eliquis] 5 mg PO BID #180 tab 05/04/18 Allergies Allergy/AdvReac Type Severity Reaction Status Date / Time aspirin Allergy Abdominal Verified 06/19/18 20:05 Pain fentanyl Allergy Hallucinati Verified 06/19/18 20:05 ons gemfibrozil [From Lopid] Allergy Unknown Verified 06/19/18 20:05 Review of Systems ROS Statement: Those systems with pertinent positive or pertinent negative responses have been documented in the HPI. ROS Other: All systems not noted in ROS Statement are negative. Past Medical History Past Medical History: Atrial Fibrillation, Asthma, COPD, Diabetes Mellitus, Hyperlipidemia, Hypertension, Memory Impairment, Musculoskeletal Disorder, Osteoarthritis (OA), Pneumonia, Prostate Disorder, Pulmonary Embolus (PE), Skin Disorder, Sleep Apnea/CPAP/BIPAP Additional Past Medical History / Comment(s): Dermatitis, enlarged prostate. PE found in 07/2003 while hospitalized for pneumonia, spinal stenosis, degenerative scoliosis, nerve pain in knees. Positive Cologard Test. History of Any Multi-Drug Resistant Organisms: None Reported Past Surgical History: Bowel Resection, Hernia Repair, Joint Replacement, Orthopedic Surgery Additional Past Surgical History / Comment(s): Bilateral hip replacement 2009, bilateral cataract surgery, hiatal hernia repair, incisional hernia repair , bronchoscopies., colonoscopy Past Anesthesia/Blood Transfusion Reactions: Previous Problems w/ Anesthesia, Family History of Problems w/ Anesthesia Additional Past Anesthesia/Blood Transfusion Reaction / Comment(s): "Problem with being twilighted - become very combative. Slow to wake up. Uncle has same symptoms." Past Psychological History: No Psychological Hx Reported, Depression Smoking Status: Former smoker Past Alcohol Use History: None Reported Past Drug Use History: None Reported - Past Family History Father Family Medical History: Cancer Mother Family Medical History: Cancer Brother(s) Family Medical History: Cancer General Exam Limitations: no limitations General appearance: alert, in no apparent distress, anxious, obese Head exam: Present: atraumatic, normocephalic, normal inspection Eye exam: Present: normal appearance, PERRL, EOMI. Absent: scleral icterus, conjunctival injection, periorbital swelling ENT exam: Present: normal exam, mucous membranes moist Neck exam: Present: normal inspection. Absent: tenderness, meningismus, lymphadenopathy Respiratory exam: Present: normal lung sounds bilaterally, wheezes, accessory muscle use, decreased breath sounds, prolonged expiratory. Absent: respiratory distress, rales, rhonchi, stridor Cardiovascular Exam: Present: tachycardia, irregular rhythm, normal heart sounds. Absent: systolic murmur, diastolic murmur, rubs, gallop, clicks GI/Abdominal exam: Present: soft, normal bowel sounds. Absent: distended, tenderness, guarding, rebound, rigid Extremities exam: Present: normal inspection, full ROM, normal capillary refill. Absent: tenderness, pedal edema, joint swelling, calf tenderness Back exam: Present: normal inspection Neurological exam: Present: alert, oriented X3, CN II-XII intact Psychiatric exam: Present: normal affect, normal mood Skin exam: Present: warm, dry, intact, normal color. Absent: rash Course Vital Signs 06/19/18 06/19/18 06/19/18 19:23 19:57 20:01 Temperature 100 F H Pulse Rate 70 121 H Respiratory 20 20 Rate Blood Pressure 117/72 O2 Sat by Pulse 90 L Oximetry 06/19/18 06/19/18 20:13 20:21 Temperature Pulse Rate 122 H 135 H Respiratory Rate Blood Pressure O2 Sat by Pulse Oximetry - Reevaluation(s) Reevaluation #1: 06/19/18 21:04 Medical record is reviewed including prior hospitalization 3 months ago Reevaluation #2: 06/19/18 21:05 Patient is improvement with breathing treatment and fever control here in the ER as well as placed on rate control Medical Decision Making - Medical Decision Making 63 female the ER for evaluation of significant shortness of breath and fever. Patient has significant A. fib with RVR with bilateral pneumonia. Will admit for rate control IV antibiotics and continued breathing treatment - Lab Data Result diagrams: 06/19/18 19:45 06/19/18 19:45 Lab Results 06/19/18 06/19/18 06/19/18 Range/Units 19:45 19:45 19:45 WBC 14.5 H (3.8-10.6) k/uL RBC 4.70 (4.30-5.90) m/uL Hgb 13.2 (13.0-17.5) gm/dL Hct 41.9 (39.0-53.0) % MCV 89.3 (80.0-100.0) fL MCH 28.1 (25.0-35.0) pg MCHC 31.5 (31.0-37.0) g/dL RDW 15.6 H (11.5-15.5) % Plt Count 188 (150-450) k/uL Neutrophils % 87 % Lymphocytes % 5 % Monocytes % 6 % Eosinophils % 1 % Basophils % 0 % Neutrophils # 12.6 H (1.3-7.7) k/uL Lymphocytes # 0.7 L (1.0-4.8) k/uL Monocytes # 0.9 (0-1.0) k/uL Eosinophils # 0.1 (0-0.7) k/uL Basophils # 0.0 (0-0.2) k/uL PT (9.0-12.0) sec INR (<1.2) APTT (22.0-30.0) sec Sodium 139 (137-145) mmol/L Potassium 4.3 (3.5-5.1) mmol/L Chloride 104 (98-107) mmol/L Carbon Dioxide 24 (22-30) mmol/L Anion Gap 11 mmol/L BUN 17 (9-20) mg/dL Creatinine 0.63 L (0.66-1.25) mg/dL Est GFR (CKD-EPI)AfAm >90 (>60 ml/min/1.73 sqM) Est GFR (CKD-EPI)NonAf >90 (>60 ml/min/1.73 sqM) Glucose 127 H (74-99) mg/dL Calcium 9.6 (8.4-10.2) mg/dL Magnesium 1.9 (1.6-2.3) mg/dL Total Bilirubin 1.2 (0.2-1.3) mg/dL AST 43 (17-59) U/L ALT 28 (21-72) U/L Alkaline Phosphatase 77 (38-126) U/L Total Creatine Kinase 101 (55-170) U/L CK-MB (CK-2) 3.6 H (0.0-2.4) ng/mL CK-MB (CK-2) Rel Index 3.6 Troponin I 0.061 H* (0.000-0.034) ng/mL Total Protein 6.2 L (6.3-8.2) g/dL Albumin 3.6 (3.5-5.0) g/dL 06/19/18 Range/Units 19:45 WBC (3.8-10.6) k/uL RBC (4.30-5.90) m/uL Hgb (13.0-17.5) gm/dL Hct (39.0-53.0) % MCV (80.0-100.0) fL MCH (25.0-35.0) pg MCHC (31.0-37.0) g/dL RDW (11.5-15.5) % Plt Count (150-450) k/uL Neutrophils % % Lymphocytes % % Monocytes % % Eosinophils % % Basophils % % Neutrophils # (1.3-7.7) k/uL Lymphocytes # (1.0-4.8) k/uL Monocytes # (0-1.0) k/uL Eosinophils # (0-0.7) k/uL Basophils # (0-0.2) k/uL PT 10.7 (9.0-12.0) sec INR 1.0 (<1.2) APTT 29.4 (22.0-30.0) sec Sodium (137-145) mmol/L Potassium (3.5-5.1) mmol/L Chloride (98-107) mmol/L Carbon Dioxide (22-30) mmol/L Anion Gap mmol/L BUN (9-20) mg/dL Creatinine (0.66-1.25) mg/dL Est GFR (CKD-EPI)AfAm (>60 ml/min/1.73 sqM) Est GFR (CKD-EPI)NonAf (>60 ml/min/1.73 sqM) Glucose (74-99) mg/dL Calcium (8.4-10.2) mg/dL Magnesium (1.6-2.3) mg/dL Total Bilirubin (0.2-1.3) mg/dL AST (17-59) U/L ALT (21-72) U/L Alkaline Phosphatase (38-126) U/L Total Creatine Kinase (55-170) U/L CK-MB (CK-2) (0.0-2.4) ng/mL CK-MB (CK-2) Rel Index Troponin I (0.000-0.034) ng/mL Total Protein (6.3-8.2) g/dL Albumin (3.5-5.0) g/dL - Radiology Data Radiology results: report reviewed (Chest x-rays positive for bilateral pneumonia), image reviewed Critical Care Time Critical Care Time: Yes Total Critical Care Time: 31 Disposition Clinical Impression: Atrial fibrillation, Nosocomial pneumonia, Atrial fibrillation with RVR Disposition: ADMITTED IP TO THIS [facility] Condition: Fair Is patient prescribed a controlled substance at d/c from ED?: No Referrals: Luh Louise MD [Primary Care Provider] - 1-2 days
[2018-06-19 20:33] LABS: Creatine Kinase MB 3.6 ng/mL (0.0-2.4)
[2018-06-19] MEDS: DILTIAZEM 50 MG in SODIUM CHLORIDE 0.9% 40 ML IV SCH (20:42)
[2018-06-19 20:58] LABS: Troponin I 0.061 ng/mL (0.000-0.034)
--- NOTE | 2018-06-19 20:59 | XR ---
EXAMINATION TYPE: XR chest 2V DATE OF EXAM: 06/19/2018 COMPARISON: 05/22/2018 HISTORY: Difficulty breathing TECHNIQUE: Frontal and lateral views of the chest are obtained. FINDINGS: Heart is normal. There is diffuse bilateral patchy airspace infiltrates. There are chest l gilma. Pulmonary vascularity is difficult to evaluate because of the lung disease. There is slight jeniffer nting of left costophrenic angle. Right costophrenic angle appears clear. Bony thorax is intact. IMPRESSION: New Extensive bilateral pneumonia compared to old exam. Pleural diaphragmatic reaction at the left sobia ng base unchanged. Normal heart.
[2018-06-19] MEDS ORDERED: PIPERACILLIN-TAZOBACTAM 3.375 GM in SODIUM CHLORIDE 0.9% 100 ML IVPB STA (21:00)
[2018-06-19] MEDS ORDERED: LEVOFLOXACIN 750MG-D5W PMX 750 MG in DEXTROSE/WATER 1 150ML.BAG IVPB STA (21:00)
[2018-06-19] MEDS ORDERED: PNEUMONIA PROTOCOL UTILIZED 1 EACH MISC PO PRN (21:00)
[2018-06-19] MEDS: SODIUM CHLORIDE 0.9% 1,000 ML IV SCH (21:33)
[2018-06-20] MEDS ORDERED: FLUTICASONE 50MCG/SPRAY NASAL 16GM EA NOSTRIL PRN (00:53)
[2018-06-20] MEDS ORDERED: ACETAMINOPHEN TAB 500 MG TAB PO PRN (00:55)
[2018-06-20] MEDS ORDERED: ALPRAZolam 0.25 MG TAB PO PRN (00:55)
[2018-06-20] MEDS ORDERED: TEMAZEPAM 15 MG CAP PO PRN (00:55)
[2018-06-20] MEDS ORDERED: IPRATROPIUM-ALBUTEROL 3 ML NEB INHALATION STA (02:45)
[2018-06-20] MEDS: DILTIAZEM 50 MG in SODIUM CHLORIDE 0.9% 40 ML IV SCH ×4 (04:03→22:23)
[2018-06-20] MEDS: HYDROcodone/APAP 5-325MG 1 EACH TAB PO PRN (05:43)
[2018-06-20] MEDS: ALBUTEROL NEBULIZED 2.5 MG/3 ML INHALATION STA (07:13)
[2018-06-20] MEDS: IPRATROPIUM-ALBUTEROL 3 ML NEB INHALATION SCH ×4 (07:13→20:09)
--- NOTE | 2018-06-20 07:25 | HP ---
HISTORY AND PHYSICAL CHIEF COMPLAINTS: Shortness of breath and cough DATE OF SERVICE: 06/19/2018 HISTORY OF PRESENT ILLNESS: This 63-year-old gentleman with a past medical history of multiple medical problems including history of asthma, history of COPD, history of diabetes, hypertension, hyperlipidemia, memory impairment, DJD, history of pulmonary embolism being followed by Dr. Louise in the outpatient setting, was complaining of increased shortness of breath for the last several days. The patient woke up at 3 am with shortness of breath and the patient also had some weakness, a fever, aches and chills and body aches. The patient found to have bilateral pneumonia. Patient admitted for further evaluation and treatment. There is no history of any headache, loss of consciousness. No history of chest pain, palpitations at this time. PAST MEDICAL HISTORY: Atrial fibrillation, asthma, COPD, diabetes, hypertension, hyperlipidemia, DJD, history of pulmonary embolism. MEDICATIONS: Prior to admission include home medications are reviewed and include: 1. Cardia XT 120 mg p.o. daily. 2. Ventolin 2.5 q.4 p.r.n. 3. Metformin 1000 mg p.o. b.i.d. 4. Flomax 0.4 mg q.h.s. 5. Zocor 40 mg p.o. daily. 6. Zoloft 100 mg. 7. Zantac 150 mg p.o. b.i.d. 8. Lyrica 300 mg p.o. b.i.d. 9. Singulair 10 mg p.o. daily. 10.Flonase 2 sprays b.i.d. p.r.n. 11.Symbicort 160/4.5 two puffs b.i.d. 12.Pulmicort 1 mg b.i.d. 13.Eliquis 5 mg p.o. b.i.d. ALLERGIES: ASPIRIN, VENTOLIN, GEMFIBROZIL. FAMILY HISTORY: History of cancer in the family. SOCIAL HISTORY: Previous history of smoking. No history of current smoking or alcohol intake. REVIEW OF SYSTEMS: ENT: No diminished hearing. CARDIOVASCULAR: No angina. RESPIRATORY: As mentioned earlier. GI: No nausea. : No dysuria. NERVOUS SYSTEM: No numbness or weakness. ALLERGY/IMMUNOLOGY: Asthma. MUSCULOSKELETAL: As mentioned earlier. DERMATOLOGY: Negative. ENDOCRINE: No history of diabetes or hypothyroid. CONSTITUTIONAL: As mentioned earlier. RHEUMATOLOGY: Negative. PSYCHIATRY: As mentioned earlier. PHYSICAL EXAMINATION: Alert and oriented x3, pulse 128, blood pressure 117/58, respiration 20, temperature 99.1, pulse ox 94% on room air. HEENT: Conjunctivae normal. NECK: No jugular venous congestion. CARDIOLOGY: S1, S2, muffled. RESPIRATORY: Breath sounds diminished at the bases, a few scattered rhonchi and crackles. ABDOMEN: Soft, nontender. LEGS: No edema, no swelling. NERVOUS SYSTEM: Higher functions as mentioned earlier, moves all 4 limbs, no focal deficits. LYMPHATICS: No lymph node enlargement. SKIN: No ulcer, rash or bleeding. LABS: WBC is 14.5, hemoglobin is 13.2 and glucose 127 and troponin 0.061. ASSESSMENT: 1. Chronic obstructive pulmonary disease acute exacerbation with acute bilateral pneumonia, possibly gram-negative. 2. Troponin 0.061, indeterminate. 3. Increased WBC. 4. Atrial ablation. 5. History of asthma, chronic obstructive pulmonary disease. 6. Diabetes mellitus type 2. 7. Hypertension. 8. Hyperlipidemia. 9. History of degenerative joint disease. 10.History of pneumonia. 11.History of pulmonary embolus. 12.History of dermatitis. 13.History of spinal stenosis. 14.History of bowel resection. 15.Bilateral hip joint replacement, degenerative joint disease. RECOMMENDATION: In this 63-year-old gentleman who presented with multiple complex medical issues, will monitor the patient closely. Continue with the current management and continue with symptomatic treatment. Will initiate broad-spectrum IV antibiotics and the patient is started on Zosyn and Levaquin. I would also recommend consultation with Pulmonary and IV steroids, bronchodilators. Cardiology also consulted for elevated troponin. Other than that, resume the home medications. Home medication reconciliation has been done and prognosis guarded because of multiple complex medical issues. Further recommendations to follow. MMODL / IJN: [id number] /
[2018-06-20] MEDS: methylPREDNISolone SOD SUCCI 125 MG/2 ML VIAL IV SCH ×4 (07:37→22:26)
[2018-06-20] MEDS ORDERED: BUDESONIDE 1 MG/2 ML NEBU INHALATION SCH (08:00)
[2018-06-20] MEDS: SODIUM CHLORIDE 0.9% 1,000 ML IV SCH ×3 (08:15→22:24)
[2018-06-20] MEDS ORDERED: FAMOTIDINE 20 MG TAB PO SCH (09:00)
--- NOTE | 2018-06-20 09:25 | XR ---
EXAMINATION TYPE: XR chest 2V DATE OF EXAM: 06/20/2018 COMPARISON: June 19, 2018 HISTORY: Shortness of breath TECHNIQUE: Frontal and lateral views of the chest are obtained. FINDINGS: Scattered senescent parenchymal changes noted. Hyperinflation compatible with COPD. Patchy infiltrates seen throughout both lung breen Heart size is stable. Mediastinal structures are stable and grossly unremarkable. No evidence for hilar prominence. Degenerative changes dorsal spine. IMPRESSION: 1. Diffuse infiltrates persist. No significant change noted.
[2018-06-20] MEDS: DILTIAZEM CD 120 MG CAP.ER.24H PO SCH (09:41)
[2018-06-20] MEDS: PANTOPRAZOLE 40 MG TABLET PO SCH (09:42)
[2018-06-20] MEDS: PIPERACILLIN-TAZOBACTAM 3.375 GM in SODIUM CHLORIDE 0.9% 100 ML IVPB SCH ×2 (09:42→16:55)
[2018-06-20] MEDS: ATORVASTATIN 20 MG TAB PO SCH (09:43)
[2018-06-20] MEDS: APIXABAN 5 MG TAB PO SCH ×2 (09:43→19:58)
[2018-06-20] MEDS: SERTRALINE 50 MG TAB PO SCH (09:44)
[2018-06-20] MEDS: MONTELUKAST 10 MG TAB PO SCH (09:44)
[2018-06-20 09:52] LABS: Basophils % (A) 0 %; Eosinophils # (A) 0.1 k/uL (0-0.7); Eosinophils % (A) 1 %; HGB 13.2 gm/dL (13.0-17.5); Hypochromasia Slight; Lymphocytes # (A) 0.4 k/uL (1.0-4.8); Lymphocytes % (A) 4 %; MCH 29.1 pg (25.0-35.0); MCHC 32.1 g/dL (31.0-37.0); MCV 90.5 fL (80.0-100.0); Monocytes # (A) 0.6 k/uL (0-1.0); Monocytes % (A) 5 %; Neutrophils # (A) 10.4 k/uL (1.3-7.7); Neutrophils % (A) 89 %; Platelet Count 178 k/uL (150-450); RBC 4.53 m/uL (4.30-5.90); RDW 15.8 % (11.5-15.5); WBC 11.7 k/uL (3.8-10.6)
[2018-06-20 10:07] LABS: Anion Gap 10 mmol/L; Blood Urea Nitrogen 20 mg/dL (9-20); Calcium 9.4 mg/dL (8.4-10.2); Carbon Dioxide 26 mmol/L (22-30); Chloride 105 mmol/L (98-107); Glucose 152 mg/dL (74-99); Potassium 4.3 mmol/L (3.5-5.1); Sodium 141 mmol/L (137-145)
[2018-06-20 10:16] LABS: Glucose,Whole Blood 168 mg/dL (75-99)
[2018-06-20] MEDS: metFORMIN 500 MG TAB PO SCH ×2 (10:18→21:15)
[2018-06-20] MEDS: INSULIN ASPART 100 UNIT/ML 1 ML 10 ML VIAL SQ SCH ×4 (10:19→21:15)
[2018-06-20] MEDS: PREGABALIN 100 MG CAP PO SCH ×2 (10:45→19:58)
[2018-06-20] MEDS: SYMBICORT 160-4.5 MCG INHALER INHALATION SCH ×2 (11:05→20:09)
[2018-06-20] MEDS ORDERED: DILTIAZEM DRIP BOLUS FROM BAG 1 MG SOLN IV ONE (11:27)
[2018-06-20 13:06] LABS: Glucose,Whole Blood 174 mg/dL (75-99)
--- NOTE | 2018-06-20 15:18 | P.CNPUL ---
History of Present Illness Consult date: 06/20/18 Requesting physician: Violeta Mcnamara Reason for consult: dyspnea, abnormal CXR/CT Chief complaint: Shortness of breath, palpitations History of present illness: This is a very pleasant 63-year-old gentleman who follows with Dr. Louise as his primary care physician. He has a history of diabetes mellitus, hyperlipidemia, hypertension, pulmonary embolus, obstructive sleep apnea, spinal stenosis, degenerative scoliosis, bowel resections and multiple hernia repairs, atrial flutter anticoagulated with Eliquis. He also follows in our office with Dr. Srivastava for history of chronic moderate persistent asthma with a remote history of smoking. He is maintained on Symbicort, Singulair and DuoNeb inhalations. He was admitted here back in April 2018 for new onset of atrial flutter. He follows with Dr. Chau and was planning to have an cardioversion on 07/02/2018. He presented here to the emergency room yesterday with worsening shortness of breath, palpitations, weakness. He was also having some increased cough and congestion. His chest x-ray show patchy infiltrates throughout both lung breen and we are consulted for the same. He is seen today in the emergency room. He is currently sitting up in a chair. He is awake and alert in no acute distress. He is breathing a little bit better today as compared to yesterday. He's been afebrile. Maintaining O2 saturations in the low 90s on 3 L/m per nasal cannula. He remains in atrial fibrillation with a rapid ventricular response. He's been initiated on a Cardizem drip at 10 mg per hour. White count 11.7. Hemoglobin 13.2. Creatinine 0.80. Troponin 0.61. ProBNP 1840. Influenza screen is negative. Review of Systems 14 point review of system was conducted. All negative other than as mentioned in the HPI. Past Medical History Past Medical History: Atrial Fibrillation, Atrial Flutter, Asthma, COPD, Diabetes Mellitus, Hyperlipidemia, Hypertension, Memory Impairment, Osteoarthritis (OA), Pneumonia, Prostate Disorder, Pulmonary Embolus (PE), Skin Disorder, Sleep Apnea/CPAP/BIPAP Additional Past Medical History / Comment(s): Pt states he is to soon have a heart cath and cardioversion soon, NIDDM type II, neuropathy bilateral feet, dermatitis, enlarged prostate, PE found in 07/2003 while hospitalized for pneumonia, JOSEC with CPap use, spinal stenosis, degenerative scoliosis, nerve pain in knees better after injections, arthritis in multiple joints, positive Cologard test but colonoscopy was normal. History of Any Multi-Drug Resistant Organisms: None Reported Past Surgical History: Bowel Resection, Hernia Repair, Joint Replacement Additional Past Surgical History / Comment(s): Bilateral hip replacements, bilateral cataract surgery with lens implants, hiatal hernia repair, incisional hernia repair with bowel complication that resulted in a resection , bronchoscopies., colonoscopy Past Anesthesia/Blood Transfusion Reactions: Previous Problems w/ Anesthesia, Family History of Problems w/ Anesthesia Additional Past Anesthesia/Blood Transfusion Reaction / Comment(s): "Problem with being twilighted - become very combative. Slow to wake up. Uncle has same symptoms." Smoking Status: Former smoker - Past Family History Father Family Medical History: Cancer Additional Family Medical History / Comment(s): Father had prostrate cancer. He had a pacemaker. He lived to be 88yrs old. Mother Family Medical History: Cancer, Dementia Additional Family Medical History / Comment(s): Mother had skin cancer. She of dementia at the age of 87yrs. Brother(s) Family Medical History: Cancer Additional Family Medical History / Comment(s): Brother of lung cancer. He is . Medications and Allergies Home Medications Medication Instructions Recorded Confirmed Type Pregabalin [Lyrica] 300 mg PO BID 08/18/17 06/19/18 History Sertraline [Zoloft] 100 mg PO DAILY 08/18/17 06/19/18 History metFORMIN HCL 1,000 mg PO BID 08/18/17 06/19/18 History Fluticasone Nasal [place] [Flonase 2 spr EA NOSTRIL BID PRN 01/29/18 06/19/18 History Nasal [place]] Montelukast Sodium [Singulair] 10 mg PO DAILY 01/29/18 06/19/18 History Ranitidine HCl [Zantac] 150 mg PO BID 01/29/18 06/19/18 History Simvastatin [Zocor] 40 mg PO DAILY 01/29/18 06/19/18 History Albuterol Nebulized [Ventolin 2.5 mg INHALATION RT-Q4H PRN 05/02/18 06/19/18 History Nebulized] Budesonide [Pulmicort] 1 mg INHALATION RT-BID 05/02/18 06/19/18 History Budesonide/Formoterol Fumarate 2 puff INHALATION RT-BID 05/02/18 06/19/18 History [Symbicort 160-4.5 Mcg Inhaler] Tamsulosin HCl [Flomax] 0.4 mg PO HS 05/02/18 06/19/18 History Apixaban [Eliquis] 5 mg PO BID #180 tab 05/04/18 06/19/18 Rx Diltiazem HCl [Cartia Xt] 120 mg PO DAILY 06/19/18 06/19/18 History Allergies Allergy/AdvReac Type Severity Reaction Status Date / Time aspirin Allergy Abdominal Verified 06/19/18 20:05 Pain fentanyl Allergy Hallucinati Verified 06/19/18 20:05 ons gemfibrozil [From Lopid] Allergy Unknown Verified 06/19/18 20:05 Physical Exam Vitals: Vital Signs Temp Pulse Pulse Resp BP BP Pulse Ox 06/20/18 12:00 110 H 20 112/94 92 L 06/20/18 08:00 97.0 F L 140 H 22 114/84 92 L 06/20/18 07:28 132 H 06/20/18 07:15 128 H 06/20/18 05:30 107 H 17 97/27 06/20/18 05:00 131 H 24 110/77 06/20/18 04:30 102 H 19 98/75 92 L 06/20/18 04:00 109 H 21 97/68 93 L 06/20/18 03:52 97.6 F 109 H 19 97/58 95 06/20/18 03:30 101 H 22 104/68 06/20/18 03:19 113 H 06/20/18 03:11 116 H 06/20/18 03:00 99 21 99/68 06/20/18 02:30 110 H 8 L 114/72 06/20/18 02:00 112 H 19 123/43 06/20/18 01:00 98 19 117/62 94 L 06/20/18 00:30 105 H 20 93 L 06/20/18 00:00 98 16 88/74 93 L 06/19/18 23:30 137 H 16 122/54 94 L 06/19/18 23:00 141 H 10 L 100/52 91 L 06/19/18 22:30 112 H 6 L 110/83 93 L 06/19/18 22:00 134 H 16 117/58 94 L 06/19/18 21:34 99.1 F 128 H 20 117/58 94 L 06/19/18 21:30 130 H 27 H 84/62 92 L 06/19/18 21:00 128 H 18 95/64 91 L 06/19/18 20:30 128 H 25 H 126/106 91 L 06/19/18 20:21 135 H 06/19/18 20:13 122 H 06/19/18 20:01 20 06/19/18 20:00 27 H 110/65 93 L 06/19/18 19:57 121 H 06/19/18 19:55 124 H 29 H 91 L 06/19/18 19:23 100 F H 70 20 117/72 90 L Intake and Output 06/19/18 06/20/18 06/20/18 22:59 06:59 14:59 Intake Total 36.75 Balance 36.75 Intake: Intake, IV Titration 36.75 Amount Diltiazem 50 mg In Sodium 36.75 Chloride 0.9% 40 ml @ 5 MG/HR 5 mls/hr IV .Q10H [facility] Rx#:[id number] Other: # Voids 1 Weight 145.603 kg GENERAL EXAM: Obese. Awake, alert, fairly comfortable in no apparent distress. On nasal cannula. HEAD: Normocephalic. EYES: Normal reaction of pupils, equal size. NOSE: Clear with pink turbinates. THROAT: There is crowding the posterior pharynx. No erythema or exudates. NECK: Short. No masses, no JVD. CHEST: No chest wall deformity. LUNGS: Equal air entry with few scattered rhonchi. CVS: S1 and S2 normal with no audible murmur, irregular rhythm. ABDOMEN: No hepatosplenomegaly, normal bowel sounds, no guarding or rigidity. SPINE: No scoliosis or deformity SKIN: No rashes CENTRAL NERVOUS SYSTEM: No focal deficits, tone is normal in all 4 extremities. EXTREMITIES: There is trace peripheral edema. No clubbing, no cyanosis. Peripheral pulses are intact. Results - Laboratory Findings CBC and BMP: 06/20/18 09:05 06/20/18 09:05 PT/INR, D-dimer PT 10.7 sec (9.0-12.0) 06/19/18 19:45 INR 1.0 (<1.2) 06/19/18 19:45 Abnormal lab findings: Abnormal Labs 06/19/18 06/19/18 06/19/18 19:45 19:45 19:45 WBC 14.5 H RDW 15.6 H Neutrophils # 12.6 H Lymphocytes # 0.7 L Creatinine 0.63 L Glucose 127 H POC Glucose (mg/dL) CK-MB (CK-2) 3.6 H Troponin I 0.061 H* Total Protein 6.2 L 06/20/18 06/20/18 06/20/18 09:05 09:05 10:09 WBC 11.7 H RDW 15.8 H Neutrophils # 10.4 H Lymphocytes # 0.4 L Creatinine Glucose 152 H POC Glucose (mg/dL) 168 H CK-MB (CK-2) Troponin I Total Protein 06/20/18 12:28 WBC RDW Neutrophils # Lymphocytes # Creatinine Glucose POC Glucose (mg/dL) 174 H CK-MB (CK-2) Troponin I Total Protein - Diagnostic Findings Chest x-ray: image reviewed Assessment and Plan Assessment: Impression: #1 Acute hypoxic respiratory failure secondary to suspected bilateral pneumonia , community-acquired versus healthcare acquired, patient was inpatient 3 months ago. #2 Acute exacerbation of mild intermittent asthma secondary to above. #3 Atrial flutter with a rapid ventricular response currently on a Cardizem drip. #4 Obesity. #5 Obstructive sleep apnea. #6 Diabetes mellitus. #7 Hypertension. #8 Hyperlipidemia. #9 History of pulmonary embolism. #10 Benign prostatic hypertrophy. #11 Ventral hernia secondary to multiple hernia repairs and bowel resection. Plan: The patient was seen and evaluated by Dr. Johnson. Chest x-ray and labs were reviewed. We'll go ahead and add Zosyn and Levaquin. Continue bronchodilators. Continue IV Solu-Medrol. He is anticoagulated with Eliquis. Rate control with Cardizem drip. We will continue to follow and make further recommendations based on his clinical status. I, the cosigning physician, performed a history & physical examination of the patient. Lungs sounds with bilateral scattered rhonchi. Maintaining good O2 saturations in the 90s on 3 L/m per nasal cannula. I discussed the assessment and plan of care with my nurse practitioner, Narcisa Reyez. I attest to the above note as dictated by her. Time with Patient: Greater than 30
[2018-06-20 16:59] LABS: Glucose,Whole Blood 169 mg/dL (75-99)
[2018-06-20] MEDS: TAMSULOSIN 0.4 MG CAP.ER.24H PO SCH (19:58)
--- NOTE | 2018-06-20 20:22 | HP ---
HISTORY AND PHYSICAL DATE OF SERVICE: 06/20/2018 This 63-year-old gentleman was admitted with COPD exacerbation also had bilateral pneumonia possibly gram-negative is being closely monitored. The patient also had atrial fibrillation also. The patient is started on Cardizem drip at this time for atrial flutter/fibrillation. PAST MEDICAL HISTORY: Reviewed. REVIEW OF SYSTEMS: CARDIOVASCULAR: As mentioned earlier. RESPIRATORY: As mentioned earlier. GI: As mentioned earlier. no dysuria. Nervous system: No numbness or weakness. CURRENT MEDICATIONS ARE: Reviewed and include: 1. Tylenol 500 q.6h p.r.n. 2. [place] 5 mg q.6h. 3. DuoNeb q.i.d. and p.r.n. 4. Xanax 0.5 t.i.d. 5. Eliquis 5 mg p.o. b.i.d. 6. Lipitor 20 mg. 7. Symbicort 160/4.5 two puffs. 8. Cardizem CD 120 mg p.o. daily. 9. Flonase. 10.Novolin. 11.Levaquin 750 mg q24 hours. 12.Glucophage 1000 mg b.i.d. 13.Solu-Medrol 60 IV q.6h. 14.Singulair 10 mg daily. 15.Protonix 40 mg daily. 16.Zosyn 3.375 IV q.8h. 17.Lyrica. 18.Zoloft. 19.Flomax. PHYSICAL EXAM: Patient is alert, oriented x3. Pulse 96, blood pressure is 120/84, respiration 20, temperature is 97.2, pulse ox 92% on 3 L. HEENT is conjunctivae normal. Oral mucosa moist. Neck is no jugular venous distention. No carotid bruit. No lymph node enlargement. CARDIOVASCULAR SYSTEM: S1, S2 muffled. RESPIRATORY SYSTEM: Breath sounds diminished at the bases. A few scattered rhonchi and crackles. Expiratory wheezing also present. ABDOMEN: Soft, nontender. Legs: No edema. No swelling. NERVOUS SYSTEM: Diffusely weak. LABS: WBC 11.7, otherwise Accu-Cheks noted. ASSESSMENT: 1. Chronic obstructive pulmonary disease acute exacerbation with acute bilateral pneumonia possibly gram-negative. 2. Atrial flutter with fast ventricular rate. 3. Troponin 0.06 indeterminate. 4. Increased WBC. 5. Atrial fibrillation history. 6. History of asthma, chronic obstructive pulmonary disease. 7. Diabetes mellitus type 2. 8. Hypertension. 9. Hyperlipidemia. 10.History of degenerative joint disease. 11.History of pneumonia. 12.History of pulmonary embolism. 13.History of dermatitis. 14.History of spinal stenosis. 15.History of bowel resection. 16.History of bilateral degenerative joint disease. RECOMMENDATIONS AND DISCUSSION: Recommend to continue current medications, monitor and symptomatic treatment. Otherwise, at this time, we will monitor the patient closely. Otherwise guarded prognosis because of multiple complex medical issues. Further recommendations to follow. Continue the broad-spectrum IV antibiotics. MMODL / IJN: [id number] / OFELIA
[2018-06-20 21:05] LABS: Hemoglobin A1C 6.3 % (4.0-6.0)
[2018-06-20 21:11] LABS: Glucose,Whole Blood 208 mg/dL (75-99)
[2018-06-20] MEDS ORDERED: LEVOFLOXACIN 750MG-D5W PMX 750 MG in DEXTROSE/WATER 1 150ML.BAG IVPB SCH (22:00)
[2018-06-21] MEDS: PIPERACILLIN-TAZOBACTAM 3.375 GM in SODIUM CHLORIDE 0.9% 100 ML IVPB SCH ×4 (00:25→23:26)
[2018-06-21] MEDS: DILTIAZEM 50 MG in SODIUM CHLORIDE 0.9% 40 ML IV SCH ×3 (03:30→14:30)
[2018-06-21 05:47] LABS: Glucose,Whole Blood 155 mg/dL (75-99)
[2018-06-21] MEDS: methylPREDNISolone SOD SUCCI 125 MG/2 ML VIAL IV SCH ×4 (06:13→23:20)
[2018-06-21] MEDS: PANTOPRAZOLE 40 MG TABLET PO SCH (06:13)
[2018-06-21] MEDS: HYDROcodone/APAP 5-325MG 1 EACH TAB PO PRN ×2 (06:13→20:30)
[2018-06-21] MEDS: INSULIN ASPART 100 UNIT/ML 1 ML 10 ML VIAL SQ SCH ×4 (06:14→20:32)
[2018-06-21 06:20] LABS: Basophils % (A) 0 %; Eosinophils % (A) 0 %; HGB 11.5 gm/dL (13.0-17.5); Hypochromasia Moderate; Lymphocytes # (A) 0.5 k/uL (1.0-4.8); Lymphocytes % (A) 4 %; MCH 27.9 pg (25.0-35.0); MCHC 30.4 g/dL (31.0-37.0); Monocytes # (A) 0.4 k/uL (0-1.0); Monocytes % (A) 3 %; Neutrophils # (A) 10.5 k/uL (1.3-7.7); Neutrophils % (A) 91 %; Platelet Count 189 k/uL (150-450); RBC 4.13 m/uL (4.30-5.90); RDW 15.5 % (11.5-15.5); WBC 11.5 k/uL (3.8-10.6)
[2018-06-21 06:29] LABS: Anion Gap 7 mmol/L; Blood Urea Nitrogen 19 mg/dL (9-20); Carbon Dioxide 26 mmol/L (22-30); Chloride 108 mmol/L (98-107); Glucose 154 mg/dL (74-99); Potassium 4.5 mmol/L (3.5-5.1); Sodium 141 mmol/L (137-145)
[2018-06-21] MEDS: SERTRALINE 50 MG TAB PO SCH (08:50)
[2018-06-21] MEDS: APIXABAN 5 MG TAB PO SCH ×2 (08:50→20:32)
[2018-06-21] MEDS: metFORMIN 500 MG TAB PO SCH ×2 (08:50→20:30)
[2018-06-21] MEDS: ATORVASTATIN 20 MG TAB PO SCH (08:50)
[2018-06-21] MEDS: PREGABALIN 100 MG CAP PO SCH ×2 (08:51→20:31)
[2018-06-21] MEDS: MONTELUKAST 10 MG TAB PO SCH (08:51)
[2018-06-21] MEDS: SYMBICORT 160-4.5 MCG INHALER INHALATION SCH ×2 (08:58→19:52)
[2018-06-21] MEDS: IPRATROPIUM-ALBUTEROL 3 ML NEB INHALATION SCH ×4 (08:58→19:53)
[2018-06-21] MEDS: DILTIAZEM CD 120 MG CAP.ER.24H PO SCH (09:36)
[2018-06-21 10:42] VITALS: BMI 40.5
[2018-06-21 11:51] LABS: Glucose,Whole Blood 150 mg/dL (75-99)
--- NOTE | 2018-06-21 13:21 | P.CRDCN ---
<Crystal Miller E - Last Filed: 06/21/18 12:49> History of Present Illness Consult date: 06/21/18 Requesting physician: Violeta Mcnamara Reason for Consult (text): Abnormal troponin Chief complaint: Shortness of breath and heart racing History of present illness: This is a pleasant 63-year-old gentleman with history of hypertension , diabetes, hyperlipidemia, prior PE, nonsmoker, obesity, chronic persistent atrial flutter, typical, on Eliquis for anticoagulation, he follows regularly with Dr. Chau in the office. He presents to the hospital on this occasion with symptoms of progressively worsening shortness of breath with nonproductive cough, patient also states that his heart was racing extremely fast and when he was up ambulating. He does admit to some orthopnea. Mild peripheral edema. According to the patient, he has seen Dr. Chau in the office recently patient underwent a stress test which revealed small reversible defect in the inferior basal wall of the left ventricle, Dr. Chau explained to the patient that he will need to undergo cardiac catheterization with subsequent cardioversion. Patient is been on anticoagulation for greater than 4 weeks and will not require a ARNOL prior to his cardioversion according to Dr. Chau's documentation in the office. At the time of my examination this morning, patient states he still does not feel well, continues to feel short of breath, he has been initiated on IV antibiotics for his pneumonia. Chest x-ray shows new extensive bilateral pneumonia as compared with prior exam. EKG shows atrial flutter with a controlled ventricular response. Repeat chest x-ray shows diffuse infiltrates persist. Blood pressure 114/70, heart rate in the 80s to 90s 90s, afebrile, 91 % on 3 L of oxygen. Temperature 100 on admission. White blood cell count 14.5 on admission, 11.5 this morning, hemoglobin 11.5, platelet count 189. Sodium 141, potassium 4.5, BUN 19, creatinine 0.6. Initial troponin 0.061. BNP level 1840. Influenza A and B were negative. Echocardiogram with Doppler study was performed in April which revealed an ejection fraction of 50-55%. We will obtain a limited echo this admission. Past Medical History Past Medical History: Atrial Fibrillation, Atrial Flutter, Asthma, COPD, Diabetes Mellitus, Hyperlipidemia, Hypertension, Memory Impairment, Osteoarthritis (OA), Pneumonia, Prostate Disorder, Pulmonary Embolus (PE), Skin Disorder, Sleep Apnea/CPAP/BIPAP Additional Past Medical History / Comment(s): Pt states he is to soon have a heart cath and cardioversion soon, NIDDM type II, neuropathy bilateral feet, dermatitis, enlarged prostate, PE found in 07/2003 while hospitalized for pneumonia, JOSE C with CPap use, spinal stenosis, degenerative scoliosis, nerve pain in knees better after injections, arthritis in multiple joints, positive Cologard test but colonoscopy was normal. History of Any Multi-Drug Resistant Organisms: None Reported Past Surgical History: Bowel Resection, Hernia Repair, Joint Replacement Additional Past Surgical History / Comment(s): Bilateral hip replacements, bilateral cataract surgery with lens implants, hiatal hernia repair, incisional hernia repair with bowel complication that resulted in a resection , bronchoscopies., colonoscopy Past Anesthesia/Blood Transfusion Reactions: Previous Problems w/ Anesthesia, Family History of Problems w/ Anesthesia Additional Past Anesthesia/Blood Transfusion Reaction / Comment(s): "Problem with being twilighted - become very combative. Slow to wake up. Uncle has same symptoms." Smoking Status: Former smoker - Past Family History Father Family Medical History: Cancer Additional Family Medical History / Comment(s): Father had prostrate cancer. He had a pacemaker. He lived to be 88yrs old. Mother Family Medical History: Cancer, Dementia Additional Family Medical History / Comment(s): Mother had skin cancer. She of dementia at the age of 87yrs. Brother(s) Family Medical History: Cancer Additional Family Medical History / Comment(s): Brother of lung cancer. He is . Medications and Allergies Home Medications Medication Instructions Recorded Confirmed Type Pregabalin [Lyrica] 300 mg PO BID 08/18/17 06/19/18 History Sertraline [Zoloft] 100 mg PO DAILY 08/18/17 06/19/18 History metFORMIN HCL 1,000 mg PO BID 08/18/17 06/19/18 History Fluticasone Nasal [place] [Flonase 2 spr EA NOSTRIL BID PRN 01/29/18 06/19/18 History Nasal [place]] Montelukast Sodium [Singulair] 10 mg PO DAILY 01/29/18 06/19/18 History Ranitidine HCl [Zantac] 150 mg PO BID 01/29/18 06/19/18 History Simvastatin [Zocor] 40 mg PO DAILY 01/29/18 06/19/18 History Albuterol Nebulized [Ventolin 2.5 mg INHALATION RT-Q4H PRN 05/02/18 06/19/18 History Nebulized] Budesonide [Pulmicort] 1 mg INHALATION RT-BID 05/02/18 06/19/18 History Budesonide/Formoterol Fumarate 2 puff INHALATION RT-BID 05/02/18 06/19/18 History [Symbicort 160-4.5 Mcg Inhaler] Tamsulosin HCl [Flomax] 0.4 mg PO HS 05/02/18 06/19/18 History Apixaban [Eliquis] 5 mg PO BID #180 tab 05/04/18 06/19/18 Rx Diltiazem HCl [Cartia Xt] 120 mg PO DAILY 06/19/18 06/19/18 History Allergies Allergy/AdvReac Type Severity Reaction Status Date / Time aspirin Allergy Abdominal Verified 06/19/18 20:05 Pain fentanyl Allergy Hallucinati Verified 06/19/18 20:05 ons gemfibrozil [From Lopid] Allergy Unknown Verified 06/19/18 20:05 Physical Exam Vitals: Vital Signs Temp Pulse Pulse Resp BP BP Pulse Ox 06/21/18 11:33 97.8 F 98 20 114/76 91 L 06/21/18 09:12 88 06/21/18 08:59 88 06/21/18 08:00 16 06/21/18 07:59 97.6 F 84 16 112/70 95 06/21/18 05:45 98.1 F 91 20 106/71 92 L 06/21/18 00:00 81 21 103/63 93 L 06/20/18 20:25 88 06/20/18 20:10 90 93 L 06/20/18 20:00 97.3 F L 73 22 118/74 92 L 06/20/18 16:31 92 06/20/18 16:21 77 18 96 06/20/18 16:00 97.3 F L 96 20 129/81 92 L Intake and Output 06/20/18 06/21/18 06/21/18 22:59 06:59 14:59 Intake Total 100 50 283.667 Output Total 100 Balance 0 50 283.667 Intake: Intake, IV Titration 100 50 43.667 Amount Diltiazem 50 mg In Sodium 100 50 43.667 Chloride 0.9% 40 ml @ 10 MG/HR 10 mls/hr IV .Q5H ON LICENSE OF [facility] Rx#:[id number] Oral 240 Output: Urine 100 Other: Voiding Method Urinal Toilet Urinal # Voids 1 Weight 143.2 kg 143.2 kg PHYSICAL EXAMINATION: GENERAL: 63-year-old gentleman in no acute distress at the time of my examination HEENT: Head is atraumatic, normocephalic. Pupils equal, round. Sclera anicteric. Conjunctiva are clear. Mucous membranes of the mouth are moist. Neck is supple. There is elevated jugular venous pressure. No carotid bruit is heard. HEART EXAMINATION: Heart S1 and S2 irregularly irregular a systolic murmur is heard. CHEST EXAMINATION: Lungs reveal scattered wheezing throughout with decreased air exchange ABDOMEN: Soft, nontender. Bowel sounds are heard. No organomegaly noted. EXTREMITIES: 2+ peripheral pulses with trace evidence of peripheral edema and no calf tenderness noted. NEUROLOGIC patient is awake, alert and oriented X3. . Results 06/21/18 05:33 06/21/18 05:33 CBC 06/21/18 Range/Units 05:33 WBC 11.5 H (3.8-10.6) k/uL RBC 4.13 L (4.30-5.90) m/uL Hgb 11.5 L (13.0-17.5) gm/dL Hct 38.0 L (39.0-53.0) % Plt Count 189 (150-450) k/uL Comprehensive Metabolic Panel 06/21/18 Range/Units 05:33 Sodium 141 (137-145) mmol/L Potassium 4.5 (3.5-5.1) mmol/L Chloride 108 H (98-107) mmol/L Carbon Dioxide 26 (22-30) mmol/L BUN 19 (9-20) mg/dL Creatinine 0.60 L (0.66-1.25) mg/dL Glucose 154 H (74-99) mg/dL Calcium 9.0 (8.4-10.2) mg/dL Current Medications Generic Name Dose Route Start Last Admin Trade Name Freq PRN Reason Stop Dose Admin Acetaminophen 500 mg 06/20/18 00:55 Tylenol Tab PO Q6HR PRN Fever and/ or Pain Hydrocodone Bitart/Acetaminophen 1 each 06/20/18 00:55 06/21/18 06:13 [place] 5-325 PO 1 each Q6HR PRN Administration Pain Albuterol/Ipratropium 3 ml 06/20/18 08:00 06/21/18 08:58 Duoneb 0.5 Mg-3 Mg/3 Ml Soln INHALATION 3 ml RT-QID [facility]ANE Administration Alprazolam 0.25 mg 06/20/18 00:55 Xanax PO TID PRN Anxiety Apixaban 5 mg 06/20/18 09:00 06/21/18 08:50 Eliquis PO 5 mg BID ARIANE Administration Atorvastatin Calcium 20 mg 06/20/18 09:00 06/21/18 08:50 Lipitor PO 20 mg DAILY ARIANE Administration Budesonide/Formoterol Fumarate 2 puff 06/20/18 08:42 06/21/18 08:58 Symbicort 160-4.5 Mcg Inhaler INHALATION 2 puff RT-BID ARIANE Administration Diltiazem HCl 120 mg 06/20/18 09:00 06/21/18 09:36 Cardizem Cd PO 120 mg DAILY ARIANE Administration Fluticasone Propionate 2 spray 06/20/18 00:53 Flonase Nasal [place] EA NOSTRIL BID PRN Congestion Piperacillin Sod/Tazobactam 100 mls @ 25 mls/hr 06/20/18 08:00 06/21/18 08:49 Sod 3.375 gm/ Sodium Chloride IVPB 06/30/18 08:01 25 mls/hr Q8HR ARIANE Administration Sodium Chloride 1,000 mls @ 100 mls/hr 06/19/18 21:00 06/20/18 22:24 Saline 0.9% IV 100 mls/hr .Q10H ARIANE Administration Diltiazem HCl 50 mg/ Sodium 50 mls @ 10 mls/hr 06/20/18 11:30 06/21/18 07:52 Chloride IV 10 mg/hr .Q5H ARIANE 10 mls/hr Administration 10 MG/HR Insulin Aspart 0 unit 06/20/18 07:30 06/21/18 12:23 Novolog SQ 1 unit ACHS ARIANE Administration Protocol Levofloxacin 750 mg 06/21/18 21:00 Levaquin PO 07/02/18 21:01 HS ARIANE Metformin HCl 1,000 mg 06/20/18 09:00 06/21/18 08:50 Glucophage PO 1,000 mg BID ARIANE Administration Methylprednisolone Sodium Succinate 60 mg 06/20/18 06:00 06/21/18 12:22 Solu-Medrol IV 60 mg Q6HR ARIANE Administration Miscellaneous Information 1 each 06/19/18 21:00 Pneumonia Protocol Utilized PO ONCE PRN Per Protocol Montelukast Sodium 10 mg 06/20/18 09:00 06/21/18 08:51 Singulair PO 10 mg DAILY ARIANE Administration Pantoprazole Sodium 40 mg 06/20/18 07:30 06/21/18 06:13 Protonix PO 40 mg AC-BRKFST ARIANE Administration Pregabalin 300 mg 06/20/18 09:00 06/21/18 08:51 Lyrica PO 300 mg BID ARIANE Administration Sertraline HCl 100 mg 06/20/18 09:00 06/21/18 08:50 Zoloft PO 100 mg DAILY ARIANE Administration Tamsulosin HCl 0.4 mg 06/20/18 21:00 06/20/18 19:58 Flomax PO 0.4 mg HS ARIANE Administration Temazepam 15 mg 06/20/18 00:55 Restoril PO HS PRN Insomnia Intake and Output 06/20/18 06/21/18 06/21/18 22:59 06:59 14:59 Intake Total 100 50 283.667 Output Total 100 Balance 0 50 283.667 Intake: Intake, IV Titration 100 50 43.667 Amount Diltiazem 50 mg In Sodium 100 50 43.667 Chloride 0.9% 40 ml @ 10 MG/HR 10 mls/hr IV .Q5H ON LICENSE OF [facility] Rx#:[id number] Oral 240 Output: Urine 100 Other: Voiding Method Urinal Toilet Urinal # Voids 1 Weight 143.2 kg 143.2 kg Patient Weight 06/22/18 06:59 Weight 143.2 kg 06/21/18 05:33 06/21/18 05:33 EKG Interpretations (text) EKG shows atrial flutter with controlled ventricular response Assessment and Plan Plan: Assessment and plan #1 symptoms of progressively worsening shortness of breath with associated malaise and fatigue, evidence of acute bilateral pneumonia, on IV antibiotics #2 typical atrial flutter, rate under good control, on Eliquis for anticoagulation, on Cardizem drip at 10 mg per hour. #3 recent abnormal stress test in the office, patient advised to undergo cardiac catheterization by Dr. Kilgore on the of this month. #4 hypertension #5 diabetes #6 hyperlipidemia #7 sleep apnea #8 COPD #9 abnormal troponin, likely secondary to sepsis. Cannot completely rule out non-Q-wave NE. Plan We will obtain a limited echocardiogram with Doppler study to assess the LV function. Obtain 2 subsequent troponins. Continue anticoagulation with Eliquis , continue IV antibiotics. Discontinue IV Cardizem and increase dose of Cardizem CD. As an outpatient patient was scheduled to undergo cardiac catheterization and subsequent cardioversion. At this time we will continue to treat the patient for the pneumonia, once this resolves these procedures will be rescheduled by Dr. Chau. Further recommendations to follow. DNP note has been reviewed, I agree with a documented findings and plan of care. Patient was seen and examined. <Jluis Palmer - Last Filed: 06/21/18 13:43> History of Present Illness History of present illness: Patient interviewed and examined by Dr. Rodriguez. At this time he has a pneumonia and this should be treated and therefore coronary angiography should be postponed. Since his antegradely she'll be held for coronary angiography I would not cardiovert him it I did recommend that she should proceed with an atrial flutter ablation but he must be an anticoagulation, uninterrupted for at least a month before that and for at least 3 months thereafter Check TSH as an outpatient Physical Exam Vitals: Vital Signs Temp Pulse Pulse Resp BP BP Pulse Ox 06/21/18 11:33 97.8 F 98 20 114/76 91 L 06/21/18 09:12 88 06/21/18 08:59 88 06/21/18 08:00 16 06/21/18 07:59 97.6 F 84 16 112/70 95 06/21/18 05:45 98.1 F 91 20 106/71 92 L 06/21/18 00:00 81 21 103/63 93 L 06/20/18 20:25 88 06/20/18 20:10 90 93 L 06/20/18 20:00 97.3 F L 73 22 118/74 92 L 06/20/18 16:31 92 06/20/18 16:21 77 18 96 06/20/18 16:00 97.3 F L 96 20 129/81 92 L Intake and Output 06/20/18 06/21/18 06/21/18 22:59 06:59 14:59 Intake Total 462 46 3377.667 Output Total 100 Balance 0 50 1263.667 Intake: IV 980 Diltiazem 50 mg In Sodium 80 Chloride 0.9% 40 ml @ 10 MG/HR 10 mls/hr IV .Q5H [facility] Rx#:[id number] Piperacillin-Tazobactam 3 100 .375 gm In Sodium Chloride 0.9% 100 ml @ 25 mls/hr IVPB Q8HR [facility] Rx# :[id number] Sodium Chloride 0.9% 1, 800 000 ml @ 100 mls/hr IV . Q10H [facility] Rx#:[id number] Intake, IV Titration 100 50 43.667 Amount Diltiazem 50 mg In Sodium 100 50 43.667 Chloride 0.9% 40 ml @ 10 MG/HR 10 mls/hr IV .Q5H [facility] Rx#:[id number] Oral 240 Output: Urine 100 Other: Voiding Method Urinal Toilet Urinal # Voids 1 Weight 143.2 kg 143.2 kg Results 06/21/18 05:33 06/21/18 05:33 CBC 06/21/18 Range/Units 05:33 WBC 11.5 H (3.8-10.6) k/uL RBC 4.13 L (4.30-5.90) m/uL Hgb 11.5 L (13.0-17.5) gm/dL Hct 38.0 L (39.0-53.0) % Plt Count 189 (150-450) k/uL Comprehensive Metabolic Panel 06/21/18 Range/Units 05:33 Sodium 141 (137-145) mmol/L Potassium 4.5 (3.5-5.1) mmol/L Chloride 108 H (98-107) mmol/L Carbon Dioxide 26 (22-30) mmol/L BUN 19 (9-20) mg/dL Creatinine 0.60 L (0.66-1.25) mg/dL Glucose 154 H (74-99) mg/dL Calcium 9.0 (8.4-10.2) mg/dL Current Medications Generic Name Dose Route Start Last Admin Trade Name Freq PRN Reason Stop Dose Admin Acetaminophen 500 mg 06/20/18 00:55 Tylenol Tab PO Q6HR PRN Fever and/ or Pain Hydrocodone Bitart/Acetaminophen 1 each 06/20/18 00:55 06/21/18 06:13 [place] 5-325 PO 1 each Q6HR PRN Administration Pain Albuterol/Ipratropium 3 ml 06/20/18 08:00 06/21/18 12:51 Duoneb 0.5 Mg-3 Mg/3 Ml Soln INHALATION Not Given RT-QID ARIANE Alprazolam 0.25 mg 06/20/18 00:55 Xanax PO TID PRN Anxiety Apixaban 5 mg 06/20/18 09:00 06/21/18 08:50 Eliquis PO 5 mg BID ARIANE Administration Atorvastatin Calcium 20 mg 06/20/18 09:00 06/21/18 08:50 Lipitor PO 20 mg DAILY ARIANE Administration Budesonide/Formoterol Fumarate 2 puff 06/20/18 08:42 06/21/18 08:58 Symbicort 160-4.5 Mcg Inhaler INHALATION 2 puff RT-BID ARIANE Administration Diltiazem HCl 240 mg 06/22/18 09:00 Cardizem Cd PO DAILY ARIANE Fluticasone Propionate 2 spray 06/20/18 00:53 Flonase Nasal [place] EA NOSTRIL BID PRN Congestion Piperacillin Sod/Tazobactam 100 mls @ 25 mls/hr 06/20/18 08:00 06/21/18 08:49 Sod 3.375 gm/ Sodium Chloride IVPB 06/30/18 08:01 25 mls/hr Q8HR ARIANE Administration Sodium Chloride 1,000 mls @ 100 mls/hr 06/19/18 21:00 06/20/18 22:24 Saline 0.9% IV 100 mls/hr .Q10H ARIANE Administration Insulin Aspart 0 unit 06/20/18 07:30 06/21/18 12:23 Novolog SQ 1 unit ACHS ARIANE Administration Protocol Levofloxacin 750 mg 06/21/18 21:00 Levaquin PO 07/02/18 21:01 HS ARIANE Metformin HCl 1,000 mg 06/20/18 09:00 06/21/18 08:50 Glucophage PO 1,000 mg BID ARIANE Administration Methylprednisolone Sodium Succinate 60 mg 06/20/18 06:00 06/21/18 12:22 Solu-Medrol IV 60 mg Q6HR ARIANE Administration Miscellaneous Information 1 each 06/19/18 21:00 Pneumonia Protocol Utilized PO ONCE PRN Per Protocol Montelukast Sodium 10 mg 06/20/18 09:00 06/21/18 08:51 Singulair PO 10 mg DAILY ARIANE Administration Pantoprazole Sodium 40 mg 06/20/18 07:30 06/21/18 06:13 Protonix PO 40 mg AC-BRKFST ARIANE Administration Pregabalin 300 mg 06/20/18 09:00 06/21/18 08:51 Lyrica PO 300 mg BID ARIANE Administration Sertraline HCl 100 mg 06/20/18 09:00 06/21/18 08:50 Zoloft PO 100 mg DAILY ARIANE Administration Tamsulosin HCl 0.4 mg 06/20/18 21:00 06/20/18 19:58 Flomax PO 0.4 mg HS ARIANE Administration Temazepam 15 mg 06/20/18 00:55 Restoril PO HS PRN Insomnia Intake and Output 06/20/18 06/21/18 06/21/18 22:59 06:59 14:59 Intake Total 282 15 2927.667 Output Total 100 Balance 0 50 1263.667 Intake: IV 980 Diltiazem 50 mg In Sodium 80 Chloride 0.9% 40 ml @ 10 MG/HR 10 mls/hr IV .Q5H [facility] Rx#:[id number] Piperacillin-Tazobactam 3 100 .375 gm In Sodium Chloride 0.9% 100 ml @ 25 mls/hr IVPB Q8HR [facility] Rx# :[id number] Sodium Chloride 0.9% 1, 800 000 ml @ 100 mls/hr IV . Q10H [facility] Rx#:[id number] Intake, IV Titration 100 50 43.667 Amount Diltiazem 50 mg In Sodium 100 50 43.667 Chloride 0.9% 40 ml @ 10 MG/HR 10 mls/hr IV .Q5H [facility] Rx#:[id number] Oral 240 Output: Urine 100 Other: Voiding Method Urinal Toilet Urinal # Voids 1 Weight 143.2 kg 143.2 kg Patient Weight 06/22/18 06:59 Weight 143.2 kg 06/21/18 05:33 06/21/18 05:33
[2018-06-21] MEDS ORDERED: DILTIAZEM CD 120 MG CAP.ER.24H PO STA (14:58)
--- NOTE | 2018-06-21 15:04 | P.PN ---
Subjective Progress Note Date: 06/21/18 Principal diagnosis: Acute hypoxemic respiratory failure secondary to bilateral pneumonia. This is a very pleasant 63-year-old gentleman who follows with Dr. Louise as his primary care physician. He has a history of diabetes mellitus, hyperlipidemia, hypertension, pulmonary embolus, obstructive sleep apnea, spinal stenosis, degenerative scoliosis, bowel resections and multiple hernia repairs, atrial flutter anticoagulated with Eliquis. He also follows in our office with Dr. Srivastava for history of chronic moderate persistent asthma with a remote history of smoking. He is maintained on Symbicort, Singulair and DuoNeb inhalations. He was admitted here back in April 2018 for new onset of atrial flutter. He follows with Dr. Chau and was planning to have an cardioversion on 07/02/2018. He presented here to the emergency room yesterday with worsening shortness of breath, palpitations, weakness. He was also having some increased cough and congestion. His chest x-ray show patchy infiltrates throughout both lung breen and we are consulted for the same. He is seen today in the emergency room. He is currently sitting up in a chair. He is awake and alert in no acute distress. He is breathing a little bit better today as compared to yesterday. He's been afebrile. Maintaining O2 saturations in the low 90s on 3 L/m per nasal cannula. He remains in atrial fibrillation with a rapid ventricular response. He's been initiated on a Cardizem drip at 10 mg per hour. White count 11.7. Hemoglobin 13.2. Creatinine 0.80. Troponin 0.61. ProBNP 1840. Influenza screen is negative. The patient is seen again today 06/21/2018 in follow-up on the selective care unit. He is currently awake and alert in no acute distress. He sitting up at the bedside. He is breathing a bit easier today as compared to yesterday. He is currently maintaining O2 saturations in the low 90s on 3 L/m per nasal cannula. He's been afebrile. Hemodynamically stable. Blood culture reveals no growth to date. White count 11.5. Hemoglobin 11.5. Creatinine 0.60. He remains on DuoNeb inhalations, Symbicort, IV Solu-Medrol. He is on antibiotics in the form of Zosyn and Levaquin. Currently on oral Cardizem 240 mg daily. Remains in atrial flutter. Controlled ventricular rate. Objective - Vital Signs Vital signs: Vital Signs Temp 97.8 F 06/21/18 11:33 Pulse 98 06/21/18 11:33 Resp 20 06/21/18 11:33 BP 114/76 06/21/18 11:33 Pulse Ox 91 L 06/21/18 11:33 Intake & Output 06/20/18 06/21/18 06/21/18 18:59 06:59 18:59 Intake Total 50 100 1503.667 Output Total 100 Balance 50 0 1503.667 Weight 143.2 kg 143.2 kg Intake: IV 980 Diltiazem 50 mg In Sodium 80 Chloride 0.9% 40 ml @ 10 MG/HR 10 mls/hr IV .Q5H [facility] Rx#:[id number] Piperacillin-Tazobactam 3 100 .375 gm In Sodium Chloride 0.9% 100 ml @ 25 mls/hr IVPB Q8HR [facility] Rx# :[id number] Sodium Chloride 0.9% 1, 800 000 ml @ 100 mls/hr IV . Q10H [facility] Rx#:[id number] Intake, IV Titration 50 100 43.667 Amount Diltiazem 50 mg In Sodium 50 100 43.667 Chloride 0.9% 40 ml @ 10 MG/HR 10 mls/hr IV .Q5H [facility] Rx#:[id number] Oral 480 Output: Urine 100 Other: Voiding Method Urinal Toilet Urinal # Voids 1 - Exam GENERAL EXAM: Morbidly obese. Alert, comfortable in no apparent distress. HEAD: Normocephalic. EYES: Normal reaction of pupils, equal size. NOSE: Clear with pink turbinates. THROAT: No erythema or exudates. NECK: No masses, no JVD. CHEST: No chest wall deformity. LUNGS: Equal air entry with few scattered rhonchi, end expiratory wheeze. CVS: S1 and S2 normal with no audible murmur, irregular rhythm. ABDOMEN: No hepatosplenomegaly, normal bowel sounds, no guarding or rigidity. SPINE: No scoliosis or deformity SKIN: No rashes CENTRAL NERVOUS SYSTEM: No focal deficits, tone is normal in all 4 extremities. EXTREMITIES: There is 1-2+ peripheral edema. No clubbing, no cyanosis. Peripheral pulses are intact. - Labs CBC & Chem 7: 06/21/18 05:33 06/21/18 05:33 Labs: Abnormal Lab Results - Last 24 Hours (Table) 06/20/18 06/20/18 06/20/18 Range/Units 09:05 16:57 21:10 WBC (3.8-10.6) k/uL RBC (4.30-5.90) m/uL Hgb (13.0-17.5) gm/dL Hct (39.0-53.0) % MCHC (31.0-37.0) g/dL Neutrophils # (1.3-7.7) k/uL Lymphocytes # (1.0-4.8) k/uL Chloride (98-107) mmol/L Creatinine (0.66-1.25) mg/dL Glucose (74-99) mg/dL POC Glucose (mg/dL) 169 H 208 H (75-99) mg/dL Hemoglobin A1c 6.3 H (4.0-6.0) % 06/21/18 06/21/18 06/21/18 Range/Units 05:33 05:33 05:45 WBC 11.5 H (3.8-10.6) k/uL RBC 4.13 L (4.30-5.90) m/uL Hgb 11.5 L (13.0-17.5) gm/dL Hct 38.0 L (39.0-53.0) % MCHC 30.4 L (31.0-37.0) g/dL Neutrophils # 10.5 H (1.3-7.7) k/uL Lymphocytes # 0.5 L (1.0-4.8) k/uL Chloride 108 H (98-107) mmol/L Creatinine 0.60 L (0.66-1.25) mg/dL Glucose 154 H (74-99) mg/dL POC Glucose (mg/dL) 155 H (75-99) mg/dL Hemoglobin A1c (4.0-6.0) % 06/21/18 Range/Units 11:30 WBC (3.8-10.6) k/uL RBC (4.30-5.90) m/uL Hgb (13.0-17.5) gm/dL Hct (39.0-53.0) % MCHC (31.0-37.0) g/dL Neutrophils # (1.3-7.7) k/uL Lymphocytes # (1.0-4.8) k/uL Chloride (98-107) mmol/L Creatinine (0.66-1.25) mg/dL Glucose (74-99) mg/dL POC Glucose (mg/dL) 150 H (75-99) mg/dL Hemoglobin A1c (4.0-6.0) % Microbiology - Last 24 Hours (Table) 06/19/18 21:40 Blood Culture - Preliminary Blood No Growth after 24 hours Assessment and Plan Assessment: Impression: #1 Acute hypoxic respiratory failure secondary to suspected bilateral pneumonia , community-acquired versus healthcare acquired, patient was inpatient 3 months ago. #2 Acute exacerbation of mild intermittent asthma secondary to above. #3 Atrial flutter with a rapid ventricular response currently on oral Cardizem #4 Obesity. #5 Obstructive sleep apnea. #6 Diabetes mellitus. #7 Hypertension. #8 Hyperlipidemia. #9 History of pulmonary embolism. #10 Benign prostatic hypertrophy. #11 Ventral hernia secondary to multiple hernia repairs and bowel resection. Plan: The patient was seen and evaluated by Dr. Johnson. Continue his current treatment plan. He is anticoagulated with Eliquis. Rate control with Cardizem. We will continue to follow and make further recommendations based on his clinical status. I, the cosigning physician, performed a history & physical examination of the patient. Lungs sounds with bilateral scattered rhonchi. Maintaining good O2 saturations in the 90s on 3 L/m per nasal cannula. I discussed the assessment and plan of care with my nurse practitioner, Narcisa Reyez. I attest to the above note as dictated by her.
[2018-06-21] MEDS: SODIUM CHLORIDE 0.9% 1,000 ML IV SCH ×2 (16:13→23:30)
[2018-06-21] MEDS: FUROSEMIDE 10 MG/ML 2 ML VIAL IV SCH ×2 (16:43→23:22)
[2018-06-21 17:04] LABS: Glucose,Whole Blood 207 mg/dL (75-99)
--- NOTE | 2018-06-21 18:34 | ECHOF ---
Referral Reason:abnormal trop MEASUREMENTS -------- HEIGHT: 188.0 cm WEIGHT: 142.9 kg BP: 114/76 RVIDd: 3.8 cm (< 3.3) IVSd: 1.3 cm (0.6 - 1.1) LVIDd: 5.5 cm (3.9 - 5.3) LVPWd: 1.3 cm (0.6 - 1.1) IVSs: 1.6 cm LVIDs: 3.9 cm LVPWs: 1.6 cm FINDINGS -------- Sinus rhythm. This was a technically difficult study with suboptimal views. Limited Study for assessment of left ventricular function. The left ventricular size is normal. There is mild concentric left ventricular hypertrophy. Overa ll left ventricular systolic function is low-normal with, an EF between 50 - 55 %. 3 ml of Lumason was utilized for enhancement of images. The aortic root is mildy dilated up to 4.2 cm. CONCLUSIONS -------- 1. Sinus rhythm. 2. This was a technically difficult study with suboptimal views. 3. Limited Study for assessment of left ventricular function. 4. The left ventricular size is normal. 5. There is mild concentric left ventricular hypertrophy. 6. Overall left ventricular systolic function is low-normal with, an EF between 50 - 55 %. 7. 3 ml of Lumason was utilized for enhancement of images. BOLT SAWYER: Memo Handley RDCS
[2018-06-21 19:58] LABS: Glucose,Whole Blood 199 mg/dL (75-99)
[2018-06-21] MEDS: TAMSULOSIN 0.4 MG CAP.ER.24H PO SCH (20:32)
[2018-06-21] MEDS: LEVOFLOXACIN 750 MG TAB PO SCH (20:32)
--- NOTE | 2018-06-21 20:32 | PN ---
PROGRESS NOTE DATE OF SERVICE: 06/21/2018 This 63-year-old gentleman who was admitted with COPD acute exacerbation as well as bilateral pneumonia also had atrial flutter also. The patient being closely monitored at this time. The patient also seen by Cardiology and pulmonology. PAST MEDICAL HISTORY: Reviewed. REVIEW OF SYSTEMS: CARDIOVASCULAR: As mentioned earlier. RESPIRATORY: As mentioned earlier. GASTROINTESTINAL: No nausea or vomiting. GENITOURINARY: No dysuria. CENTRAL NERVOUS SYSTEM: No numbness or weakness. MEDICATIONS: Current medications are reviewed and include: 1. Tylenol 500 q.6h p.r.n. 2. [place] 5 mg q.6h. 3. DuoNeb q.i.d. and p.r.n. 4. Eliquis 5 mg p.o. b.i.d. 5. Lipitor 20 mg. 6. Symbicort 160/4.5, 2 puffs b.i.d. 7. Cardizem CD 240 mg daily. 8. Flonase. 9. NovoLog. 10.Levaquin 750 p.o. daily. 11.Solu-Medrol 60 IV q.6h. 12.Singular. 13.Protonix. 14.Zosyn IV. 15.Flomax. 16.Restoril. PHYSICAL EXAM: Patient is alert, oriented x3. The patient is significantly short of breath at rest. Pulse 90, blood pressure 136/82, respirations 16, temperature 97.4, pulse ox 94% on 3 L. HEENT: Conjunctivae normal. NECK: No jugular venous distention. CARDIOVASCULAR: S1, S2 muffled. RESPIRATORY: Breath sounds diminished in the bases. Bilateral scattered rhonchi and crackles. ABDOMEN: Soft, nontender. No mass palpable. Legs are no edema, no swelling. CENTRAL NERVOUS SYSTEM: No focal deficits. LABS: WBC 11.2, hemoglobin 11.5 and glucose 155. ASSESSMENT: 1. Chronic obstructive pulmonary disease acute exacerbation with acute bilateral pneumonia with possibly gram-negative. 2. Atrial flutter with fast ventricular rate. 3. Troponin 0.66 indeterminate. 4. Increased WBC. 5. Atrial flutter fibrillation history. 6. History of asthma, chronic obstructive pulmonary disease. 7. Diabetes mellitus type 2. 8. Hypertension. 9. Hyperlipidemia. 10.History of degenerative joint disease. 11.History of pneumonia. 12.History of pulmonary embolus. 13.History of dermatitis. 14.History of spinal stenosis. 15.History of bowel resection. 16.History of bilateral degenerative joint disease. RECOMMENDATIONS AND DISCUSSION: Recommend to continue current medications, management and symptomatic treatment. Continue with the broad-spectrum IV antibiotics. Closely follow with Cardiology and Pulmonology. Prognosis guarded because of multiple complex medical issues. Bronchodilators. IV steroids. Monitor blood sugars closely. Guarded prognosis. Further recommendations to follow. MMODL / IJN: [id number] /
[2018-06-22 06:09] LABS: Glucose,Whole Blood 175 mg/dL (75-99)
[2018-06-22] MEDS: PANTOPRAZOLE 40 MG TABLET PO SCH (06:15)
[2018-06-22] MEDS: methylPREDNISolone SOD SUCCI 125 MG/2 ML VIAL IV SCH ×4 (06:15→23:54)
[2018-06-22] MEDS: INSULIN ASPART 100 UNIT/ML 1 ML 10 ML VIAL SQ SCH ×4 (06:16→21:57)
[2018-06-22 07:37] LABS: Basophils % (A) 0 %; Eosinophils % (A) 0 %; HCT 39.8 % (39.0-53.0); Hypochromasia Slight; Lymphocytes # (A) 0.4 k/uL (1.0-4.8); Lymphocytes % (A) 3 %; MCHC 30.2 g/dL (31.0-37.0); MCV 92.6 fL (80.0-100.0); Mean Platelet Volume 8.8; Monocytes # (A) 0.4 k/uL (0-1.0); Monocytes % (A) 3 %; Neutrophils # (A) 12.5 k/uL (1.3-7.7); Neutrophils % (A) 93 %; Platelet Count 216 k/uL (150-450); RDW 15.3 % (11.5-15.5); WBC 13.4 k/uL (3.8-10.6)
[2018-06-22 07:53] LABS: Anion Gap 9 mmol/L; Blood Urea Nitrogen 28 mg/dL (9-20); Calcium 9.3 mg/dL (8.4-10.2); Carbon Dioxide 25 mmol/L (22-30); Chloride 107 mmol/L (98-107); Glucose 178 mg/dL (74-99); Potassium 4.7 mmol/L (3.5-5.1); Sodium 141 mmol/L (137-145)
[2018-06-22] MEDS: SYMBICORT 160-4.5 MCG INHALER INHALATION SCH ×2 (08:00→21:31)
[2018-06-22] MEDS: IPRATROPIUM-ALBUTEROL 3 ML NEB INHALATION SCH ×4 (08:00→21:30)
--- NOTE | 2018-06-22 09:28 | XR ---
EXAMINATION TYPE: XR chest 1V portable DATE OF EXAM: 06/22/2018 HISTORY: pneumonia/chf. REFERENCE: Previous study dated 06/20/2018. FINDINGS: Unfortunately, the patient's head projects over the upper chest on the right. The heart is enlarged. There is vascular congestion. Overall aeration has improved. I could not exclu de some superimposed pulmonary edema. IMPRESSION: 1. CARDIOMEGALY AND VASCULAR CONGESTION. 2. IMPROVED AERATION OF BOTH LUNGS. 3. I COULD NOT EXCLUDE SOME DEGREE OF PULMONARY EDEMA.
[2018-06-22] MEDS: FUROSEMIDE 10 MG/ML 2 ML VIAL IV SCH ×3 (09:57→23:54)
[2018-06-22] MEDS: metFORMIN 500 MG TAB PO SCH ×2 (10:00→21:56)
[2018-06-22] MEDS: DILTIAZEM CD 240 MG CAP.ER.24H PO SCH (10:00)
[2018-06-22] MEDS: SERTRALINE 50 MG TAB PO SCH (10:01)
[2018-06-22] MEDS: APIXABAN 5 MG TAB PO SCH ×2 (10:01→21:57)
[2018-06-22] MEDS: MONTELUKAST 10 MG TAB PO SCH (10:01)
[2018-06-22] MEDS: ATORVASTATIN 20 MG TAB PO SCH (10:01)
[2018-06-22] MEDS: PREGABALIN 100 MG CAP PO SCH ×2 (10:01→21:56)
[2018-06-22 11:51] LABS: Glucose,Whole Blood 196 mg/dL (75-99)
--- NOTE | 2018-06-22 12:45 | P.PN ---
Subjective Progress Note Date: 06/22/18 Principal diagnosis: Acute hypoxemic respiratory failure secondary to bilateral pneumonia. This is a very pleasant 63-year-old gentleman who follows with Dr. Louise as his primary care physician. He has a history of diabetes mellitus, hyperlipidemia, hypertension, pulmonary embolus, obstructive sleep apnea, spinal stenosis, degenerative scoliosis, bowel resections and multiple hernia repairs, atrial flutter anticoagulated with Eliquis. He also follows in our office with Dr. Srivastava for history of chronic moderate persistent asthma with a remote history of smoking. He is maintained on Symbicort, Singulair and DuoNeb inhalations. He was admitted here back in April 2018 for new onset of atrial flutter. He follows with Dr. Chau and was planning to have an cardioversion on 07/02/2018. He presented here to the emergency room yesterday with worsening shortness of breath, palpitations, weakness. He was also having some increased cough and congestion. His chest x-ray show patchy infiltrates throughout both lung breen and we are consulted for the same. He is seen today in the emergency room. He is currently sitting up in a chair. He is awake and alert in no acute distress. He is breathing a little bit better today as compared to yesterday. He's been afebrile. Maintaining O2 saturations in the low 90s on 3 L/m per nasal cannula. He remains in atrial fibrillation with a rapid ventricular response. He's been initiated on a Cardizem drip at 10 mg per hour. White count 11.7. Hemoglobin 13.2. Creatinine 0.80. Troponin 0.61. ProBNP 1840. Influenza screen is negative. The patient is seen again today 06/21/2018 in follow-up on the selective care unit. He is currently awake and alert in no acute distress. He sitting up at the bedside. He is breathing a bit easier today as compared to yesterday. He is currently maintaining O2 saturations in the low 90s on 3 L/m per nasal cannula. He's been afebrile. Hemodynamically stable. Blood culture reveals no growth to date. White count 11.5. Hemoglobin 11.5. Creatinine 0.60. He remains on DuoNeb inhalations, Symbicort, IV Solu-Medrol. He is on antibiotics in the form of Zosyn and Levaquin. Currently on oral Cardizem 240 mg daily. Remains in atrial flutter. Controlled ventricular rate. She is seen today 06/22/2017 in follow-up on the selective care unit. He is currently resting quite comfortably in bed. No worsening shortness of breath, cough or congestion. He is maintaining O2 saturations in the 90s on 3 L/m per nasal cannula. He's been afebrile. Hemodynamically stable. X-ray shows improvement in aeration bilaterally. Still with some mild pulmonary edema. Blood cultures reveal no growth. Sputum cultures pending. White count 13.4. Hemoglobin 12.0. Creatinine 0.74. Objective - Vital Signs Vital signs: Vital Signs Temp 98.1 F 06/22/18 08:00 Pulse 94 06/22/18 11:55 Resp 18 06/22/18 08:00 BP 120/69 06/22/18 08:00 Pulse Ox 94 L 06/22/18 08:00 Intake & Output 06/21/18 06/22/18 06/22/18 18:59 06:59 18:59 Intake Total 1503.667 410 118 Output Total 500 1100 Balance 1003.667 -690 118 Weight 143.2 kg 144.7 kg Intake: IV 980 10 Diltiazem 50 mg In Sodium 80 Chloride 0.9% 40 ml @ 10 MG/HR 10 mls/hr IV .Q5H [facility] Rx#:[id number] Invasive Line 2 10 Piperacillin-Tazobactam 3 100 .375 gm In Sodium Chloride 0.9% 100 ml @ 25 mls/hr IVPB Q8HR [facility] Rx# :[id number] Sodium Chloride 0.9% 1, 800 000 ml @ 20 mls/hr IV . Q24H [facility] Rx#:[id number] Intake, IV Titration 43.667 Amount Diltiazem 50 mg In Sodium 43.667 Chloride 0.9% 40 ml @ 10 MG/HR 10 mls/hr IV .Q5H [facility] Rx#:[id number] Oral 480 400 118 Output: Urine 500 1100 Other: Voiding Method Toilet Toilet Toilet Urinal Urinal Urinal # Voids 1 - Exam GENERAL EXAM: Morbidly obese. Alert, comfortable in no apparent distress. On nasal cannula. HEAD: Normocephalic. EYES: Normal reaction of pupils, equal size. NOSE: Clear with pink turbinates. THROAT: No erythema or exudates. NECK: No masses, no JVD. CHEST: No chest wall deformity. LUNGS: Equal air entry with few scattered rhonchi, end expiratory wheeze. CVS: S1 and S2 normal with no audible murmur, irregular rhythm. ABDOMEN: No hepatosplenomegaly, normal bowel sounds, no guarding or rigidity. SPINE: No scoliosis or deformity SKIN: No rashes CENTRAL NERVOUS SYSTEM: No focal deficits, tone is normal in all 4 extremities. EXTREMITIES: There is 1-2+ peripheral edema. No clubbing, no cyanosis. Peripheral pulses are intact. - Labs CBC & Chem 7: 06/22/18 06:05 06/22/18 06:05 Labs: Abnormal Lab Results - Last 24 Hours (Table) 06/21/18 06/21/18 06/22/18 Range/Units 17:02 19:57 06:05 WBC 13.4 H (3.8-10.6) k/uL Hgb 12.0 L (13.0-17.5) gm/dL MCHC 30.2 L (31.0-37.0) g/dL Neutrophils # 12.5 H (1.3-7.7) k/uL Lymphocytes # 0.4 L (1.0-4.8) k/uL BUN (9-20) mg/dL Glucose (74-99) mg/dL POC Glucose (mg/dL) 207 H 199 H (75-99) mg/dL 06/22/18 06/22/18 06/22/18 Range/Units 06:05 06:08 11:30 WBC (3.8-10.6) k/uL Hgb (13.0-17.5) gm/dL MCHC (31.0-37.0) g/dL Neutrophils # (1.3-7.7) k/uL Lymphocytes # (1.0-4.8) k/uL BUN 28 H (9-20) mg/dL Glucose 178 H (74-99) mg/dL POC Glucose (mg/dL) 175 H 196 H (75-99) mg/dL Microbiology - Last 24 Hours (Table) 06/21/18 20:00 Gram Stain - Preliminary Sputum 06/19/18 21:40 Blood Culture - Preliminary Blood No Growth after 48 hours Assessment and Plan Assessment: Impression: #1 Acute hypoxic respiratory failure secondary to suspected bilateral pneumonia , community-acquired versus healthcare acquired, patient was inpatient 3 months ago. Improved clinically and radiographically. #2 Acute exacerbation of mild intermittent asthma secondary to above. #3 Atrial flutter with a rapid ventricular response currently on oral Cardizem #4 Obesity. #5 Obstructive sleep apnea. #6 Diabetes mellitus. #7 Hypertension. #8 Hyperlipidemia. #9 History of pulmonary embolism. #10 Benign prostatic hypertrophy. #11 Ventral hernia secondary to multiple hernia repairs and bowel resection. Plan: The patient was seen and evaluated by Dr. Johnson. Chest x-ray and labs reviewed. He remains on bronchodilators, IV Solu-Medrol, Zosyn and Levaquin. He remains on IV diuretics. He is anticoagulated with Eliquis. Rate control with Cardizem. We will continue to follow and make further recommendations based on his clinical status. I, the cosigning physician, performed a history & physical examination of the patient. Lungs sounds with bilateral scattered rhonchi. Maintaining good O2 saturations in the 90s on 3 L/m per nasal cannula. I discussed the assessment and plan of care with my nurse practitioner, Narcisa Reyze. I attest to the above note as dictated by her.
[2018-06-22] MEDS: PIPERACILLIN-TAZOBACTAM 3.375 GM in SODIUM CHLORIDE 0.9% 100 ML IVPB SCH ×3 (13:57→23:54)
[2018-06-22 17:24] LABS: Glucose,Whole Blood 191 mg/dL (75-99)
--- NOTE | 2018-06-22 17:50 | P.PN ---
Progress Note - Text Progress Note Date: 06/22/18 Considering that dramatic improvement noted on the chest x-ray today, and resolution of the interstitial infiltrates, this is consistent with pulmonary edema unless movement otherwise. Obviously the per the patient was mostly all cardiac in nature, and the patient will need to have further cardiac workup. Cardiology was notified and was aware of the dramatic change on his chest x-ray with diuretics basically overnight. Again this is not pneumonia considering the dramatic improvement practically overnight.
[2018-06-22 20:30] LABS: Glucose,Whole Blood 222 mg/dL (75-99)
[2018-06-22] MEDS: LEVOFLOXACIN 750 MG TAB PO SCH (21:56)
[2018-06-22] MEDS: TAMSULOSIN 0.4 MG CAP.ER.24H PO SCH (21:57)
[2018-06-22] MEDS: DOCUSATE 100 MG CAP PO SCH (21:57)
--- NOTE | 2018-06-22 23:57 | PN ---
PROGRESS NOTE DATE OF SERVICE: 06/22/2018 This 63-year-old gentleman who was admitted with COPD acute exacerbation as well as bilateral pneumonia is being closely monitored. Patient still has shortness of breath but slightly better. No chest pain. No palpitations. No fever. Chest x-ray showed minimal improvement. EXAM: Alert and oriented times three. Pulse 96, blood pressure 107/73, respiration 20, temperature 97 degrees, pulse ox 93% on 2 L. HEENT is conjunctivae normal. NECK: No jugular venous distention. CARDIOVASCULAR: S1, S2 muffled. Respirations: Breath sounds diminished in the bases. Bilateral scattered rhonchi and crackles. Abdomen is soft, nontender. Legs no edema. NERVOUS SYSTEM: No focal deficits. LAB STUDIES: The labs shows WBC 13.2, hemoglobin is 12, Accu-Cheks noted. ASSESSMENT: 1. Chronic obstructive pulmonary disease acute exacerbation with acute bilateral pneumonia with possibly gram-negative. 2. Rule out congestive heart failure acute exacerbation with acute on chronic diastolic dysfunction, ejection fraction 50-55%. 2D echo was limited but ejection fraction was . 3. Atrial flutter with fast ventricular rate. 4. Troponin 0.06 indeterminate. 5. Increased WBC. 6. Atrial flutter fibrillation history. 7. History of asthma/chronic obstructive pulmonary disease. 8. Diabetes mellitus type 2. 9. Hypertension. 10.Hyperlipidemia. 11.History of degenerative joint disease. 12.History pneumonia. 13.History of pulmonary embolism. 14.History of dermatitis. 15.History of spinal stenosis. 16.History of bowel resection. 17.History of bilateral degenerative joint disease. RECOMMENDATIONS AND DISCUSSION: Recommend to continue current medications, management. Continue with antibiotics. The patient was seen by Dr. Johnson and probably the because of significant improvement, the possibility of pulmonary edema also to be considered. Continue to monitor. Guarded prognosis because of multiple complex medical issues. Further recommendations to follow. The patient is started on a small dose of diuretics at this time and further recommendations to follow. Prognosis guarded. Closely follow with Cardiology. MMODL / IJN: [id number] / MTDD
[2018-06-23 06:41] LABS: Glucose,Whole Blood 158 mg/dL (75-99)
[2018-06-23] MEDS: PANTOPRAZOLE 40 MG TABLET PO SCH (06:42)
[2018-06-23] MEDS: INSULIN ASPART 100 UNIT/ML 1 ML 10 ML VIAL SQ SCH ×3 (06:43→17:31)
[2018-06-23] MEDS: methylPREDNISolone SOD SUCCI 125 MG/2 ML VIAL IV SCH (06:43)
[2018-06-23] MEDS: SYMBICORT 160-4.5 MCG INHALER INHALATION SCH ×2 (07:34→19:53)
[2018-06-23] MEDS: IPRATROPIUM-ALBUTEROL 3 ML NEB INHALATION SCH ×4 (07:34→19:53)
[2018-06-23] MEDS: PIPERACILLIN-TAZOBACTAM 3.375 GM in SODIUM CHLORIDE 0.9% 100 ML IVPB SCH (08:14)
[2018-06-23] MEDS: DILTIAZEM CD 240 MG CAP.ER.24H PO SCH (08:14)
[2018-06-23] MEDS: SERTRALINE 50 MG TAB PO SCH (08:14)
[2018-06-23] MEDS: FUROSEMIDE 10 MG/ML 2 ML VIAL IV SCH ×2 (08:14→17:17)
[2018-06-23] MEDS: MONTELUKAST 10 MG TAB PO SCH (08:14)
[2018-06-23] MEDS: APIXABAN 5 MG TAB PO SCH (08:14)
[2018-06-23] MEDS: PREGABALIN 100 MG CAP PO SCH (08:14)
[2018-06-23] MEDS: DOCUSATE 100 MG CAP PO SCH (08:14)
[2018-06-23] MEDS: ATORVASTATIN 20 MG TAB PO SCH (08:14)
[2018-06-23] MEDS: HYDROcodone/APAP 5-325MG 1 EACH TAB PO PRN ×2 (08:15→15:38)
[2018-06-23] MEDS: metFORMIN 500 MG TAB PO SCH (08:16)
[2018-06-23] MEDS: SODIUM CHLORIDE 0.9% 1,000 ML IV SCH (08:22)
[2018-06-23 08:32] LABS: Basophils % (A) 0 %; Eosinophils % (A) 0 %; HCT 38.4 % (39.0-53.0); HGB 11.7 gm/dL (13.0-17.5); Hypochromasia Slight; Lymphocytes # (A) 0.4 k/uL (1.0-4.8); Lymphocytes % (A) 4 %; MCH 28.5 pg (25.0-35.0); MCHC 30.6 g/dL (31.0-37.0); MCV 93.2 fL (80.0-100.0); Mean Platelet Volume 8.6; Monocytes # (A) 0.3 k/uL (0-1.0); Monocytes % (A) 4 %; Neutrophils # (A) 8.2 k/uL (1.3-7.7); Neutrophils % (A) 92 %; Platelet Count 202 k/uL (150-450); RBC 4.12 m/uL (4.30-5.90); RDW 15.3 % (11.5-15.5); WBC 8.9 k/uL (3.8-10.6)
[2018-06-23 08:59] LABS: Anion Gap 5 mmol/L; Blood Urea Nitrogen 29 mg/dL (9-20); Calcium 9.2 mg/dL (8.4-10.2); Carbon Dioxide 28 mmol/L (22-30); Chloride 105 mmol/L (98-107); Glucose 161 mg/dL (74-99); Potassium 4.7 mmol/L (3.5-5.1); Sodium 138 mmol/L (137-145)
[2018-06-23] MEDS ORDERED: LISINOPRIL 5 MG TAB PO SCH (09:00)
[2018-06-23 09:10] VITALS: RESP 18
[2018-06-23 12:02] VITALS: TEMP 97
[2018-06-23 12:19] LABS: Glucose,Whole Blood 178 mg/dL (75-99)
--- NOTE | 2018-06-23 15:55 | P.PN ---
Subjective Progress Note Date: 06/23/18 Principal diagnosis: Acute hypoxic respiratory failure secondary to diastolic congestive heart failure, possible pneumonia. This is a very pleasant 63-year-old gentleman who follows with Dr. Louise as his primary care physician. He has a history of diabetes mellitus, hyperlipidemia, hypertension, pulmonary embolus, obstructive sleep apnea, spinal stenosis, degenerative scoliosis, bowel resections and multiple hernia repairs, atrial flutter anticoagulated with Eliquis. He also follows in our office with Dr. Srivastava for history of chronic moderate persistent asthma with a remote history of smoking. He is maintained on Symbicort, Singulair and DuoNeb inhalations. He was admitted here back in April 2018 for new onset of atrial flutter. He follows with Dr. Cahu and was planning to have an cardioversion on 07/02/2018. He presented here to the emergency room yesterday with worsening shortness of breath, palpitations, weakness. He was also having some increased cough and congestion. His chest x-ray show patchy infiltrates throughout both lung breen and we are consulted for the same. He is seen today in the emergency room. He is currently sitting up in a chair. He is awake and alert in no acute distress. He is breathing a little bit better today as compared to yesterday. He's been afebrile. Maintaining O2 saturations in the low 90s on 3 L/m per nasal cannula. He remains in atrial fibrillation with a rapid ventricular response. He's been initiated on a Cardizem drip at 10 mg per hour. White count 11.7. Hemoglobin 13.2. Creatinine 0.80. Troponin 0.61. ProBNP 1840. Influenza screen is negative. The patient is seen again today 06/21/2018 in follow-up on the selective care unit. He is currently awake and alert in no acute distress. He sitting up at the bedside. He is breathing a bit easier today as compared to yesterday. He is currently maintaining O2 saturations in the low 90s on 3 L/m per nasal cannula. He's been afebrile. Hemodynamically stable. Blood culture reveals no growth to date. White count 11.5. Hemoglobin 11.5. Creatinine 0.60. He remains on DuoNeb inhalations, Symbicort, IV Solu-Medrol. He is on antibiotics in the form of Zosyn and Levaquin. Currently on oral Cardizem 240 mg daily. Remains in atrial flutter. Controlled ventricular rate. She is seen today 06/22/2018 in follow-up on the selective care unit. He is currently resting quite comfortably in bed. No worsening shortness of breath, cough or congestion. He is maintaining O2 saturations in the 90s on 3 L/m per nasal cannula. He's been afebrile. Hemodynamically stable. X-ray shows improvement in aeration bilaterally. Still with some mild pulmonary edema. Blood cultures reveal no growth. Sputum cultures pending. White count 13.4. Hemoglobin 12.0. Creatinine 0.74. Patient was reevaluated today on 06/23/2018, patient is feeling much better, breathing a lot easier, no cough no wheezing no shortness of breath, no fever, no chills, no hemoptysis, and no chest pain. His chest x-ray has shown practically a dramatic improvement yesterday overnight, patient remains on diuretics, hence considering the sudden and significant change overnight, this is felt to be diastolic congestive heart failure unless proven otherwise. Today I recommended stopping his IV antibiotics, will maintain him only on oral Levaquin, continue diuretics, and patient should be reevaluated by cardiology again, and consider further cardiac workup. May eventually require a cardiac catheterization. CBC is relatively normal left lites are normal BUN is 29 creatinine is 0.67. Remains on Lasix at 20 mg IV push every 8 hours since admission. Objective - Vital Signs Vital signs: Vital Signs Temp 97.0 F L 06/23/18 12:00 Pulse 103 H 06/23/18 12:00 Resp 18 06/23/18 12:00 BP 114/71 06/23/18 12:00 Pulse Ox 91 L 06/23/18 12:00 Intake & Output 06/22/18 06/23/18 06/23/18 18:59 06:59 18:59 Intake Total 358 240 100 Output Total 1200 Balance 358 -960 100 Weight 146.2 kg Intake: Intake, IV Titration 240 100 Amount Piperacillin-Tazobactam 3 100 .375 gm In Sodium Chloride 0.9% 100 ml @ 25 mls/hr IVPB Q8HR [facility] Rx# :[id number] Sodium Chloride 0.9% 1, 240 000 ml @ 20 mls/hr IV . Q24H [facility] Rx#:[id number] Oral 358 Output: Urine 1200 Other: Voiding Method Toilet Toilet Urinal Urinal # Voids 1 - Exam GENERAL EXAM: Morbidly obese. Alert, comfortable in no apparent distress. On nasal cannula. HEAD: Normocephalic. EYES: Normal reaction of pupils, equal size. NOSE: Clear with pink turbinates. THROAT: No erythema or exudates. NECK: No masses, no JVD. CHEST: No chest wall deformity. LUNGS: Clear throughout, no crackles or rhonchi or wheezes, symmetrical chest expansion, no chest wall tenderness. CVS: S1 and S2 normal with no audible murmur, irregular rhythm. ABDOMEN: No hepatosplenomegaly, normal bowel sounds, no guarding or rigidity. SPINE: No scoliosis or deformity SKIN: No rashes CENTRAL NERVOUS SYSTEM: No focal deficits, tone is normal in all 4 extremities. EXTREMITIES: Trace of bipedal edema, no cyanosis. - Labs CBC & Chem 7: 06/23/18 06:47 06/23/18 06:47 Labs: Abnormal Lab Results - Last 24 Hours (Table) 06/22/18 06/22/18 06/23/18 Range/Units 17:02 20:28 06:40 RBC (4.30-5.90) m/uL Hgb (13.0-17.5) gm/dL Hct (39.0-53.0) % MCHC (31.0-37.0) g/dL Neutrophils # (1.3-7.7) k/uL Lymphocytes # (1.0-4.8) k/uL BUN (9-20) mg/dL Glucose (74-99) mg/dL POC Glucose (mg/dL) 191 H 222 H 158 H (75-99) mg/dL 06/23/18 06/23/18 06/23/18 Range/Units 06:47 06:47 12:05 RBC 4.12 L (4.30-5.90) m/uL Hgb 11.7 L (13.0-17.5) gm/dL Hct 38.4 L (39.0-53.0) % MCHC 30.6 L (31.0-37.0) g/dL Neutrophils # 8.2 H (1.3-7.7) k/uL Lymphocytes # 0.4 L (1.0-4.8) k/uL BUN 29 H (9-20) mg/dL Glucose 161 H (74-99) mg/dL POC Glucose (mg/dL) 178 H (75-99) mg/dL Microbiology - Last 24 Hours (Table) 06/19/18 21:40 Blood Culture - Preliminary Blood No Growth after 72 hours Assessment and Plan Assessment: #1 Acute hypoxic respiratory failure secondary to diastolic congestive heart failure, I strongly doubt pneumonia considering the dramatic improvement with diuretics overnight. #2 Acute exacerbation of mild intermittent asthma secondary to above. #3 Atrial flutter with a rapid ventricular response currently on oral Cardizem #4 Obesity. #5 Obstructive sleep apnea. #6 Diabetes mellitus. #7 Hypertension. #8 Hyperlipidemia. #9 History of pulmonary embolism. #10 Benign prostatic hypertrophy. #11 Ventral hernia secondary to multiple hernia repairs and bowel resection. Plan: Continue diuretics, patient is presently on Lasix at 20 mg IV push every 8 hours, continue Levaquin only discontinue other antibiotics/Zosyn. Continue anticoagulation therapy, continue Cardizem for his atrial fibrillation, presently the rate seems to be controlled. I will strongly recommend reevaluation by cardiology, may have to consider further cardiac workup including cardiac catheterization. Repeat chest x-ray in a.m. was ordered. We' ll continue to follow. Time with Patient: Less than 30
--- NOTE | 2018-06-23 15:57 | P.PN ---
Subjective Progress Note Date: 06/23/18 This is a pleasant 63-year-old gentleman with history of hypertension , diabetes, hyperlipidemia, prior PE, nonsmoker, obesity, chronic persistent atrial flutter, typical, on Eliquis for anticoagulation, he follows regularly with Dr. Chau in the office. He presents to the hospital on this occasion with symptoms of progressively worsening shortness of breath with nonproductive cough, patient also states that his heart was racing extremely fast and when he was up ambulating. He does admit to some orthopnea. Mild peripheral edema. According to the patient, he has seen Dr. Chau in the office recently patient underwent a stress test which revealed small reversible defect in the inferior basal wall of the left ventricle, Dr. Chau explained to the patient that he will need to undergo cardiac catheterization with subsequent cardioversion. Patient is been on anticoagulation for greater than 4 weeks and will not require a ARNOL prior to his cardioversion according to Dr. Chau's documentation in the office. At the time of my examination this morning, patient states he still does not feel well, continues to feel short of breath, he has been initiated on IV antibiotics for his pneumonia. Chest x-ray shows new extensive bilateral pneumonia as compared with prior exam. EKG shows atrial flutter with a controlled ventricular response. Repeat chest x-ray shows diffuse infiltrates persist. Blood pressure 114/70, heart rate in the 80s to 90s 90s, afebrile, 91 % on 3 L of oxygen. Temperature 100 on admission. White blood cell count 14.5 on admission, 11.5 this morning, hemoglobin 11.5, platelet count 189. Sodium 141, potassium 4.5, BUN 19, creatinine 0.6. Initial troponin 0.061. BNP level 1840. Influenza A and B were negative. Echocardiogram with Doppler study was performed in April which revealed an ejection fraction of 50-55%. We will obtain a limited echo this admission. 06/23/2018 Patient was seen and examined today, overall he is feeling well. He is hoping to be discharged home today. He has been cleared for discharge from a pulmonary perspective. From our standpoint he may be able to be discharged as well once cleared by primary and we will make a follow-up appointment in the office post discharge. Objective - Vital Signs Vital signs: Vital Signs Temp 97.0 F L 06/23/18 15:50 Pulse 103 H 01/06/19 15:50 Resp 18 06/23/18 15:50 BP 114/71 06/23/18 15:50 Pulse Ox 91 L 06/23/18 15:50 Intake & Output 06/22/18 06/23/18 06/23/18 18:59 06:59 18:59 Intake Total 358 240 100 Output Total 1200 Balance 358 -960 100 Weight 146.2 kg Intake: Intake, IV Titration 240 100 Amount Piperacillin-Tazobactam 3 100 .375 gm In Sodium Chloride 0.9% 100 ml @ 25 mls/hr IVPB Q8HR [facility] Rx# :[id number] Sodium Chloride 0.9% 1, 240 000 ml @ 20 mls/hr IV . Q24H [facility] Rx#:[id number] Oral 358 Output: Urine 1200 Other: Voiding Method Toilet Toilet Urinal Urinal # Voids 1 - Exam PHYSICAL EXAMINATION: GENERAL: 63-year-old gentleman in no acute distress at the time of my examination HEENT: Head is atraumatic, normocephalic. Pupils equal, round. Sclera anicteric. Conjunctiva are clear. Mucous membranes of the mouth are moist. Neck is supple. There is elevated jugular venous pressure. No carotid bruit is heard. HEART EXAMINATION: Heart S1 and S2 irregularly irregular a systolic murmur is heard. CHEST EXAMINATION: Lungs reveal fine wheezing throughout, improvement in air entry. ABDOMEN: Soft, nontender. Bowel sounds are heard. No organomegaly noted. EXTREMITIES: 2+ peripheral pulses with trace evidence of peripheral edema and no calf tenderness noted. NEUROLOGIC patient is awake, alert and oriented X3. - Labs CBC & Chem 7: 06/23/18 06:47 06/23/18 06:47 Labs: Abnormal Lab Results - Last 24 Hours (Table) 06/22/18 06/22/18 06/23/18 Range/Units 17:02 20:28 06:40 RBC (4.30-5.90) m/uL Hgb (13.0-17.5) gm/dL Hct (39.0-53.0) % MCHC (31.0-37.0) g/dL Neutrophils # (1.3-7.7) k/uL Lymphocytes # (1.0-4.8) k/uL BUN (9-20) mg/dL Glucose (74-99) mg/dL POC Glucose (mg/dL) 191 H 222 H 158 H (75-99) mg/dL 06/23/18 06/23/18 06/23/18 Range/Units 06:47 06:47 12:05 RBC 4.12 L (4.30-5.90) m/uL Hgb 11.7 L (13.0-17.5) gm/dL Hct 38.4 L (39.0-53.0) % MCHC 30.6 L (31.0-37.0) g/dL Neutrophils # 8.2 H (1.3-7.7) k/uL Lymphocytes # 0.4 L (1.0-4.8) k/uL BUN 29 H (9-20) mg/dL Glucose 161 H (74-99) mg/dL POC Glucose (mg/dL) 178 H (75-99) mg/dL Microbiology - Last 24 Hours (Table) 06/19/18 21:40 Blood Culture - Preliminary Blood No Growth after 72 hours Assessment and Plan Plan: Assessment and plan #1 symptoms of progressively worsening shortness of breath with associated malaise and fatigue, combinationof pneumonia and congestive cardiac failure, diastolic acute on chronic #2 typical atrial flutter, rate under good control, on Eliquis for anticoagulation, #3 recent abnormal stress test in the office, patient advised to undergo cardiac catheterization by Dr. Kilgore on the 15th of this month. #4 hypertension #5 diabetes #6 hyperlipidemia #7 sleep apnea #8 COPD #9 abnormal troponin, likely secondary to sepsis. Cannot completely rule out non-Q-wave [place]. Plan From cardiology's perspective, patient may be able to be discharged home once cleared by primary, we'll make him a follow-up appointment to see Dr. Chau in the office post discharge. DNP note has been reviewed, I agree with a documented findings and plan of care. Patient was seen and examined.
--- NOTE | 2018-06-23 15:58 | P.PN ---
Subjective Progress Note Date: 06/22/18 This is a pleasant 63-year-old gentleman with history of hypertension , diabetes, hyperlipidemia, prior PE, nonsmoker, obesity, chronic persistent atrial flutter, typical, on Eliquis for anticoagulation, he follows regularly with Dr. Chau in the office. He presents to the hospital on this occasion with symptoms of progressively worsening shortness of breath with nonproductive cough, patient also states that his heart was racing extremely fast and when he was up ambulating. He does admit to some orthopnea. Mild peripheral edema. According to the patient, he has seen Dr. Chau in the office recently patient underwent a stress test which revealed small reversible defect in the inferior basal wall of the left ventricle, Dr. Chau explained to the patient that he will need to undergo cardiac catheterization with subsequent cardioversion. Patient is been on anticoagulation for greater than 4 weeks and will not require a ARNOL prior to his cardioversion according to Dr. Chau's documentation in the office. At the time of my examination this morning, patient states he still does not feel well, continues to feel short of breath, he has been initiated on IV antibiotics for his pneumonia. Chest x-ray shows new extensive bilateral pneumonia as compared with prior exam. EKG shows atrial flutter with a controlled ventricular response. Repeat chest x-ray shows diffuse infiltrates persist. Blood pressure 114/70, heart rate in the 80s to 90s 90s, afebrile, 91 % on 3 L of oxygen. Temperature 100 on admission. White blood cell count 14.5 on admission, 11.5 this morning, hemoglobin 11.5, platelet count 189. Sodium 141, potassium 4.5, BUN 19, creatinine 0.6. Initial troponin 0.061. BNP level 1840. Influenza A and B were negative. Echocardiogram with Doppler study was performed in April which revealed an ejection fraction of 50-55%. We will obtain a limited echo this admission. 06/22/2017 Patient was seen and examined today, resting comfortably in bed, states that his breathing is improved significantly. X-ray shows improvement in aeration bilaterally with some mild pulmonary edema. Objective - Vital Signs Vital signs: Vital Signs Temp 97.0 F L 06/23/18 15:50 Pulse 103 H 06/23/18 15:50 Resp 18 06/23/18 15:50 BP 114/71 06/23/18 15:50 Pulse Ox 91 L 06/23/18 15:50 Intake & Output 06/22/18 06/23/18 06/23/18 18:59 06:59 18:59 Intake Total 358 240 100 Output Total 1200 Balance 358 -960 100 Weight 146.2 kg Intake: Intake, IV Titration 240 100 Amount Piperacillin-Tazobactam 3 100 .375 gm In Sodium Chloride 0.9% 100 ml @ 25 mls/hr IVPB Q8HR [facility] Rx# :[id number] Sodium Chloride 0.9% 1, 240 000 ml @ 20 mls/hr IV . Q24H [facility] Rx#:[id number] Oral 358 Output: Urine 1200 Other: Voiding Method Toilet Toilet Urinal Urinal # Voids 1 - Exam PHYSICAL EXAMINATION: GENERAL: 63-year-old gentleman in no acute distress at the time of my examination HEENT: Head is atraumatic, normocephalic. Pupils equal, round. Sclera anicteric. Conjunctiva are clear. Mucous membranes of the mouth are moist. Neck is supple. There is elevated jugular venous pressure. No carotid bruit is heard. HEART EXAMINATION: Heart S1 and S2 irregularly irregular a systolic murmur is heard. CHEST EXAMINATION: Lungs reveal fine wheezing throughout, improvement in air entry. ABDOMEN: Soft, nontender. Bowel sounds are heard. No organomegaly noted. EXTREMITIES: 2+ peripheral pulses with trace evidence of peripheral edema and no calf tenderness noted. NEUROLOGIC patient is awake, alert and oriented X3. - Labs CBC & Chem 7: 06/23/18 06:47 06/23/18 06:47 Labs: Abnormal Lab Results - Last 24 Hours (Table) 06/22/18 06/22/18 06/23/18 Range/Units 17:02 20:28 06:40 RBC (4.30-5.90) m/uL Hgb (13.0-17.5) gm/dL Hct (39.0-53.0) % MCHC (31.0-37.0) g/dL Neutrophils # (1.3-7.7) k/uL Lymphocytes # (1.0-4.8) k/uL BUN (9-20) mg/dL Glucose (74-99) mg/dL POC Glucose (mg/dL) 191 H 222 H 158 H (75-99) mg/dL 06/23/18 06/23/18 06/23/18 Range/Units 06:47 06:47 12:05 RBC 4.12 L (4.30-5.90) m/uL Hgb 11.7 L (13.0-17.5) gm/dL Hct 38.4 L (39.0-53.0) % MCHC 30.6 L (31.0-37.0) g/dL Neutrophils # 8.2 H (1.3-7.7) k/uL Lymphocytes # 0.4 L (1.0-4.8) k/uL BUN 29 H (9-20) mg/dL Glucose 161 H (74-99) mg/dL POC Glucose (mg/dL) 178 H (75-99) mg/dL Microbiology - Last 24 Hours (Table) 06/19/18 21:40 Blood Culture - Preliminary Blood No Growth after 72 hours Assessment and Plan Plan: Assessment and plan #1 symptoms of progressively worsening shortness of breath with associated malaise and fatigue, combinationof pneumonia and congestive cardiac failure, diastolic acute on chronic #2 typical atrial flutter, rate under good control, on Eliquis for anticoagulation, #3 recent abnormal stress test in the office, patient advised to undergo cardiac catheterization by Dr. Kilgore on the 15th of this month. #4 hypertension #5 diabetes #6 hyperlipidemia #7 sleep apnea #8 COPD #9 abnormal troponin, likely secondary to sepsis. Cannot completely rule out non-Q-wave [place]. Plan From cardiology's perspective, we will continue with current medications, possibly discharge home tomorrow if stable. Follow-up with Dr. Chau in the office. DNP note has been reviewed, I agree with a documented findings and plan of care. Patient was seen and examined.
[2018-06-23 16:12] VITALS: PULSE 88
[2018-06-23 16:49] VITALS: BP 113/70
[2018-06-23 17:14] LABS: Glucose,Whole Blood 143 mg/dL (75-99)
[2018-06-24] MEDS ORDERED: methylPREDNISolone 4 MG TAB PO SCH (09:00)
--- NOTE | 2018-06-24 11:20 | DS ---
DISCHARGE SUMMARY DATE OF SERVICE: 06/23/2018 FINAL DIAGNOSES: 1. Chronic obstructive pulmonary disease exacerbation with acute bilateral pneumonia, possibly gram-negative. 2. Congestive heart failure, unlikely. 3. Ejection fraction 50-55 percent. 4. Atrial flutter with fast ventricular rate. 5. Troponin 0.06, indeterminate. 6. Increased WBC. 7. History of atrial flutter ablation. 8. History of asthma, COPD. 9. History of diabetes type 2. 10.Hypertension. 11.Hyperlipidemia. 12.History of degenerative joint disease. 13.History pneumonia. 14.History of pulmonary embolism. 15.History of dermatitis. 16.History of spinal stenosis. 17.History of bowel resection. 18.History of bilateral ( ). The patient discharged in stable condition with guarded prognosis. HISTORY OF PRESENT ILLNESS: This 63-year-old gentleman with a past history of multiple medical problems, was admitted with shortness of breath history that was multifactorial. Chronic obstructive pulmonary disease acute exacerbation treated with bronchodilators, steroids, antibiotics. Patient improved. Dr. Johnson saw the patient. Cardiology saw the patient. BNP was normal. Ejection fraction also within normal limits. On exam, vitals are stable. Cardiovascular system normal. Respiratory reveals a few scattered rhonchi. Abdomen soft. Nervous system: No weakness. ACTIVITY: Limited until follow up. DIET: Cardiac diet. MEDICATIONS ARE: 1. Albuterol 2.5 q.4 p.r.n. 2. Pulmicort 1 mg b.i.d. 3. Symbicort 160/4.5 two puffs b.i.d. 4. Cardia XT 120 mg p.o. daily. 5. Flonase nasal spray. 6. Metformin 1000 mg p.o. b.i.d. 7. Singulair 10 mg daily. 8. Lyrica 300 mg p.o. b.i.d. 9. Zantac 150 mg b.i.d. 10.Zoloft 100 mg. 11.Zocor 40 mg daily. 12.Flomax 0.4 q.h.s. 13.Eliquis 5 mg p.o. b.i.d. 14.DuoNeb q.i.d. and p.r.n. 15.Levaquin 750 mg daily for 5 days. 16.Zestril 5 mg p.o. daily. 17.Medrol Dosepak. The patient is discharged in stable condition with guarded prognosis. MMODL / IJN: [id number] /
== END 2018-06-23 20:33 | disposition home health service (06) | DRG 177 ==
LOC: EC 18:37 → 3SCARD 21:00
PROVIDERS: ADMIT Hospitalist; ATTEND Hospitalist
DX: J15.6 Pneumonia due to other Gram-negative bacteria (principal); J96.01 Acute respiratory failure with hypoxia; I50.33 Acute on chronic diastolic (congestive) heart failure; I48.3 Typical atrial flutter; J44.0 Chronic obstructive pulmonary disease with (acute) lower respiratory infection; J44.1 Chronic obstructive pulmonary disease with (acute) exacerbation; J45.41 Moderate persistent asthma with (acute) exacerbation; Q67.5 Congenital deformity of spine; G47.33 Obstructive sleep apnea (adult) (pediatric); I11.0 Hypertensive heart disease with heart failure; Z86.711 Personal history of pulmonary embolism; Z79.01 Long term (current) use of anticoagulants; I48.91 Unspecified atrial fibrillation; K43.9 Ventral hernia without obstruction or gangrene; M15.9 Polyosteoarthritis, unspecified; N40.0 Benign prostatic hyperplasia without lower urinary tract symptoms; Y95 Nosocomial condition; Z79.51 Long term (current) use of inhaled steroids; Z79.84 Long term (current) use of oral hypoglycemic drugs; Z79.899 Other long term (current) drug therapy; Z80.1 Family history of malignant neoplasm of trachea, bronchus and lung; E11.40 Type 2 diabetes mellitus with diabetic neuropathy, unspecified; E66.9 Obesity, unspecified; E78.5 Hyperlipidemia, unspecified; Z80.8 Family history of malignant neoplasm of other organs or systems; Z87.01 Personal history of pneumonia (recurrent); Z87.891 Personal history of nicotine dependence; Z90.49 Acquired absence of other specified parts of digestive tract; Z98.42 Cataract extraction status, left eye; Z98.41 Cataract extraction status, right eye; Z96.1 Presence of intraocular lens; Z96.643 Presence of artificial hip joint, bilateral; M48.00 Spinal stenosis, site unspecified; Z82.49 Family history of ischemic heart disease and other diseases of the circulatory system; Z80.42 Family history of malignant neoplasm of prostate; Z88.6 Allergy status to analgesic agent; Z88.5 Allergy status to narcotic agent; Z88.8 Allergy status to other drugs, medicaments and biological substances
CPT/HCPCS: 36415; 71045; 71046; 80048; 80053; 82550; 82553; 83036; 83605; 83735; 83880; 84145; 84484; 85025; 85610; 85730; 87040; 87070; 87205; 87502; 93005; 93308; 94640; 96361; 96365; 96366; 96367; 96368; 96375; 96376; 99291

== ENCOUNTER → 2018-07-15 | Day surgery (SDC) | payer MEDICARE ==
[2018-07-11 14:47] VITALS: BMI 39.6
[~2018-07-15] MED LIST changes: +ALPRAZolam 0.25 MG TAB PO PRN; +ALPRAZolam 0.5 MG TAB PO PRN; +ASPIRIN 325 MG TAB PO STA; +ATORVASTATIN 80 MG TAB PO STA; +BENZOCAINE SPRAY 1 CAN MUCOUS MEM ONE; +HEPARIN SODIUM 1,000 UN/ML (10ML VL) IV ONE; +HEPARIN SODIUM 1,000 UN/ML (10ML VL) ONE; +IOPAMIDOL-370 125ML BTL INJ ONE; +IV FLUID CONTINUATION 1,000 ML IV ONE; -LACTATED RINGERS 1,000 ML IV SCH; +LIDOCAINE 1% INJ 10MG/ML (20 ML MDV) ONE; +LIDOCAINE 1% INJ 10MG/ML (20 ML MDV) SQ ONE; +MIDAZOLAM 2 MG/2 ML VIAL IV ONE; +NITROGLYCERIN SL TABS 0.4 MG TAB SUBLINGUAL PRN; +PROPOFOL 10 MG/ML 20 ML VIAL IV ONE; +RX INFO: IV CONTRAST WAS GIVEN 1 EACH MISC MISCELLANE PRN; +SODIUM CHLORIDE 0.9% 1,000 ML IV ONE; +SODIUM CHLORIDE 0.9% 1,000 ML IV SCH; +SODIUM CHLORIDE 0.9% 1,000 ML in EMPTY BAG 1 BAG IV ONE; +VERAPAMIL 2.5 MG/ML 2 ML AMP ONE; +VERAPAMIL SYRINGE (5 MG/10 ML) INTRAARTER ONE
[2018-07-15 06:54] VITALS: TEMP 98.3
[2018-07-15 06:55] LABS: Glucose,Whole Blood 146 mg/dL (75-99)
--- NOTE | 2018-07-15 09:29 | CE ---
CARDIAC ELECTROPHYSIOLOGY REPORT DATE OF SERVICE: July 15, 2018 PERFORMING PHYSICIAN: Wm Kilgore MD, retail department supervisor. PROCEDURE PERFORMED: Cardioversion. INDICATION: This is a pleasant 63-year-old gentleman with history of paroxysmal atrial fibrillation who was scheduled to undergo a cardioversion. A transesophageal echocardiogram was performed and left atrial appendage thrombus was ruled out. COMPLICATION: None. PROCEDURE DESCRIPTION: After ARNOL was performed and left atrial appendage thrombus was ruled out, the patient underwent cardioversion of atrial fibrillation to normal sinus mechanism using 200 joules on first attempt. CONCLUSION: Successful cardioversion of atrial fibrillation to normal sinus mechanism using 200 joules on first attempt. MMODL / IJN: [id number] /
--- NOTE | 2018-07-15 10:05 | CC ---
CARDIAC CATHETERIZATION REPORT DATE OF SERVICE: July 15, 2018 PERFORMING PHYSICIAN: Wm Kilgore MD, search marketing specialist. PROCEDURE PERFORMED: Selective right and left coronary angiogram. INDICATION: This is a pleasant 63-year-old gentleman with obesity, diabetes, hypertension, and dyslipidemia who was diagnosed recently with atrial fibrillation and underwent myocardial perfusion imaging stress test and that showed inferior ischemia. Because of that, a heart catheterization was advised. APPROACH: Right radial artery. COMPLICATION: None. LEVEL OF SEDATION: Moderate with a sedation length of 12 minutes. PROCEDURE DESCRIPTION: After obtaining an informed consent, the patient was brought to the cardiac labview programmer. The right radial artery was cannulated using micropuncture technique, the micropuncture wire passed easily then I placed a 6-Bolivian sheath in the right radial artery. After that, I did selective right and left coronary angiogram using JR4 and JL3.5 catheters. The procedure was completed without any complication. By the end of the procedure, I gave the patient 10,000 units of heparin IV. SELECTIVE CORONARY ANGIOGRAM: 1. The right coronary artery is a large caliber vessel and is a dominant vessel and is angiographically normal. 2. The left main is angiographically normal. It bifurcates into left circumflex and left anterior descending artery. 3. The left circumflex is a large caliber vessel and is a nondominant vessel. The circumflex is angiographically normal. The proximal portion gives rise into a large OM branch which bifurcates into 2 subbranches, appeared to be normal and the circumflex continued after that as a small to medium caliber vessel in the AV groove. 4. The LAD: The proximal LAD is angiographically normal. It gives rise into large diagonal branch which seems to be normal. The mid and distal LAD appears to be angiographically normal. The LAD does not reach the apex. CONCLUSION: Normal coronary angiogram. POSTPROCEDURE MANAGEMENT: Medical treatment. MMODL / IJN: [id number] /
--- NOTE | 2018-07-15 10:29 | LTR ---
July 15, 2018 Re: Jaquan Shoemaker Dear Dr. Louise: Mr. Jaquan Shoemaker underwent today a cardioversion of atrial fibrillation to normal sinus mechanism. Thank you for allowing me to participate in his care and please do not hesitate to call if you have any question or concern. Sincerely, Wm Kilgore MD [email or web address] / AB: [id number] /
[2018-07-15 10:30] VITALS: RESP 16
--- NOTE | 2018-07-15 12:47 | ECHOT ---
TRANSESOPHAGEAL ECHOCARDIOGRAM DATE OF SERVICE: July 15, 2018 PERFORMING PHYSICIAN: Wm Kilgore MD, recorder of deeds. PROCEDURE PERFORMED: Transesophageal echocardiogram. INDICATION: The patient is scheduled to undergo cardioversion to rule out any intracardiac thrombus. SEDATION: Deep sedation was performed with propofol with PRODUCT EXPERT and anesthesiologist in the room. PROCEDURE PRESCRIPTION: After obtaining an informed consent, explaining the procedure, benefits, risks, complications and alternatives, the patient was brought to the transesophageal echocardiogram suite. A pulse oximetry and heart rate monitors were attached to the patient prior to the procedure. The patient's throat was sprayed using lidocaine locally. Following that, the patient was turned into left lateral position. A bite guard was placed and the patient was then sedated with the above doses of Versed and fentanyl in divided doses. Following that, the transesophageal echocardiogram probe was advanced through the bite guard into the mid esophagus where 2-D echocardiogram images as well as color Doppler images of various cardiac structures were obtained. We evaluated the interatrial septum using 2-D echocardiogram, color Doppler, and contrast study. The procedure was completed. There were no complications. FINDINGS: The left ventricular dimension and systolic function appeared to be within normal limits. Right ventricle appeared to be dilated. The right atrium and left atrium are dilated. The left atrial appendage appeared to be free from any thrombus. The interatrial septum appeared to be intact. The aortic valve is trileaflet valve without stenosis or regurgitation. The mitral valve seems to be thickened with mild to moderate MR. Normal tricuspid valve and pulmonic valve. CONCLUSION: 1. Normal left atrial appendage without any evidence of thrombus. 2. Intact interatrial septum without any shunt. 3. Normal left ventricular dimension and systolic function. 4. Dilated right ventricle with normal function. 5. Biatrial enlargement. 6. Aortic sclerosis without stenosis or insufficiency. 7. Thickened mitral valve leaflets with mild to moderate mitral regurgitation. 8. Normal tricuspid valve and pulmonic valve. 9. No evidence of pericardial effusion. MMODL / IJN: [id number] /
[2018-07-15 14:58] VITALS: BP 106/61; PULSE 75
== END ==
LOC: CATHCVL 06:20
PROVIDERS: ATTEND Internal Medicine Interventional Cardiology
DX: I48.0 Paroxysmal atrial fibrillation (principal); R94.39 Abnormal result of other cardiovascular function study; I35.0 Nonrheumatic aortic (valve) stenosis; E66.9 Obesity, unspecified; I11.9 Hypertensive heart disease without heart failure; E11.51 Type 2 diabetes mellitus with diabetic peripheral angiopathy without gangrene; E78.5 Hyperlipidemia, unspecified; Z88.6 Allergy status to analgesic agent; Z88.8 Allergy status to other drugs, medicaments and biological substances; Z79.84 Long term (current) use of oral hypoglycemic drugs; Z79.01 Long term (current) use of anticoagulants; Z79.899 Other long term (current) drug therapy; Z72.0 Tobacco use; Z68.41 Body mass index [BMI] 40.0-44.9, adult
CPT/HCPCS: 93312; 93320; 93325; 93454; 92960; J2250; J2001; J1644; J2704; Q9967

== ENCOUNTER 2018-09-02 09:46 | Inpatient (IN) | payer MEDICARE ==
[2018-09-02] MEDS ORDERED: ACETAMINOPHEN TAB 500 MG TAB PO STA (10:33)
[2018-09-02] MEDS ORDERED: IBUPROFEN 600 MG TAB PO STA (10:33)
[2018-09-02] MEDS ORDERED: ALBUTEROL NEBULIZED 7.5 MG, IPRATROPIUM NEBULIZED 0.5 MG, SODIUM CHLORIDE 0.9% NEBULIZ ... INHALATION ONE ×3 (10:35)
--- NOTE | 2018-09-02 11:02 | ED ---
General Adult HPI - General Chief complaint: Shortness of Breath Stated complaint: SOB Time Seen by Provider: 09/02/18 09:50 Source: patient, RN notes reviewed Mode of arrival: wheelchair Limitations: no limitations - History of Present Illness Initial comments: This is a 63-year-old male who presents to the emergency department complaining of shortness of breath. Patient states shortness of breath is been ongoing for about 5 days. Patient states she's also had quite a bit of a cough and diffuse body aches. Patient states she's had no sputum production whatsoever. Patient states that 100 to go 103 fever at home. Patient states he did get a flu shot. Patient denies any lightheadedness or dizziness per patient denies any abdominal pain patient denies any nausea vomiting diarrhea. Patient denies any palpitations. - Related Data Home Medications Medication Instructions Recorded Confirmed Pregabalin [Lyrica] 300 mg PO BID 08/18/17 09/02/18 Sertraline [Zoloft] 100 mg PO DAILY 08/18/17 09/02/18 Fluticasone Nasal [place] [Flonase 2 spray EA NOSTRIL DAILY 01/29/18 09/02/18 Nasal [place]] Montelukast Sodium [Singulair] 10 mg PO DAILY 01/29/18 09/02/18 Ranitidine HCl [Zantac] 150 mg PO BID 01/29/18 09/02/18 Simvastatin [Zocor] 40 mg PO HS 01/29/18 09/02/18 Albuterol Nebulized [Ventolin 2.5 mg INHALATION RT-QID PRN 05/02/18 09/02/18 Nebulized] Budesonide/Formoterol Fumarate 2 puff INHALATION BID 05/02/18 09/02/18 [Symbicort 160-4.5 Mcg Inhaler] Tamsulosin HCl [Flomax] 0.4 mg PO QAM 05/02/18 09/02/18 Blueberry [place] Extract 100 mg PO DAILY 07/11/18 09/02/18 Calcium Carbonate [Calcium] 1,200 mg PO DAILY 07/11/18 09/02/18 Cognium Hydrolysate 100 mg PO BID 07/11/18 09/02/18 Diltiazem HCl [Cardizem] 120 mg PO DAILY 07/11/18 09/02/18 Furosemide [Lasix] 20 mg PO DAILY 07/11/18 09/02/18 Ipratropium-Albuterol Nebulize 3 ml INHALATION RT-QID 07/11/18 09/02/18 [Duoneb 0.5 mg-3 mg/3 ml Soln] Potassium Chloride [K-Tab ER] 20 meq PO DAILY 07/11/18 09/02/18 Albuterol Inhaler [Ventolin Hfa 2 puff INHALATION RT-QID PRN 09/02/18 09/02/18 Inhaler] Balance B-50 1 tab PO DAILY 09/02/18 09/02/18 Betamethasone Dipropionate 1 applic TOPICAL BID 09/02/18 09/02/18 [Diprolene AF 0.05% Cream] Budesonide 1 mg INHALATION RT-BID PRN 09/02/18 09/02/18 Ferrous Sulfate [Feosol] 325 mg PO DAILY 09/02/18 09/02/18 Lidocaine 5% Patch [Lidoderm] 1 patch TOPICAL DAILY PRN 09/02/18 09/02/18 Milk Thistle 500mg 250 mg PO DAILY 09/02/18 09/02/18 Selenium 200 mcg PO DAILY 09/02/18 09/02/18 Turmeric Root Extract [Turmeric] 1,500 mg PO DAILY 09/02/18 09/02/18 Ubidecarenone [Co Q-10] 100 mg PO DAILY 09/02/18 09/02/18 metFORMIN HCL [Glucophage] 1,000 mg PO BID 09/02/18 09/02/18 Previous Rx's Medication Instructions Recorded Apixaban [Eliquis] 5 mg PO BID #180 tab 05/04/18 Allergies Allergy/AdvReac Type Severity Reaction Status Date / Time gemfibrozil [From Lopid] Allergy Unknown Verified 09/02/18 10:25 aspirin AdvReac Abdominal Verified 09/02/18 10:25 Pain fentanyl AdvReac Hallucinati Verified 09/02/18 10:25 ons Review of Systems ROS Statement: Those systems with pertinent positive or pertinent negative responses have been documented in the HPI. ROS Other: All systems not noted in ROS Statement are negative. Past Medical History Past Medical History: Atrial Fibrillation, Atrial Flutter, Asthma, Heart Failure, COPD, Diabetes Mellitus, Hyperlipidemia, Hypertension, Osteoarthritis (OA), Pneumonia, Prostate Disorder, Pulmonary Embolus (PE), Skin Disorder, Sleep Apnea/CPAP/BIPAP Additional Past Medical History / Comment(s): neuropathy bilateral feet, dermatitis, enlarged prostate, PE found in 07/2003 while hospitalized for pneumonia, spinal stenosis, degenerative scoliosis, arthritis in multiple joints, migraines, palpitations, no cpap used, hx hiatal hernia, "bleeds easliy" History of Any Multi-Drug Resistant Organisms: None Reported Past Surgical History: Bowel Resection, Hernia Repair, Joint Replacement, Orthopedic Surgery, Tonsillectomy Additional Past Surgical History / Comment(s): Bilateral hip replacements, bilateral cataract surgery with lens implants, hiatal hernia repair, incisional hernia repair with mesh-had bowel complication that resulted in a bowel resection , bronchoscopies., colonoscopy, ulna nerve rt elbow surgery, Past Anesthesia/Blood Transfusion Reactions: Previous Problems w/ Anesthesia, Family History of Problems w/ Anesthesia Additional Past Anesthesia/Blood Transfusion Reaction / Comment(s): Problem with being "twilighted" - become very combative. Slow to wake up. Uncle has same symptoms with "twilight". Past Psychological History: Depression Smoking Status: Former smoker Past Alcohol Use History: None Reported Past Drug Use History: None Reported - Past Family History Father Family Medical History: Cancer Additional Family Medical History / Comment(s): Father had prostrate cancer. Mother Family Medical History: Cancer Additional Family Medical History / Comment(s): Mother had skin cancer. Brother(s) Family Medical History: Cancer Additional Family Medical History / Comment(s): Brother of lung cancer. He is . General Exam - General Exam Comments Initial Comments: GENERAL: Patient is well-developed and well-nourished. Patient is nontoxic and well- hydrated and is in mild distress. ENT: Neck is soft and supple. No significant lymphadenopathy is noted. Oropharynx is clear. Moist mucous membranes. Neck has full range of motion without eliciting any pain. EYES: The sclera were anicteric and conjunctiva were pink and moist. Extraocular movements were intact and pupils were equal round and reactive to light. Eyelids were unremarkable. PULMONARY: Patient has diffuse expiratory wheezing. CARDIOVASCULAR: There is a regular rate and rhythm without any murmurs gallops or rubs. ABDOMEN: Soft and nontender with normal bowel sounds. No palpable organomegaly was noted. There is no palpable pulsatile mass. SKIN: Skin is clear with no lesions or rashes and otherwise unremarkable. NEUROLOGIC: Patient is alert and oriented x3. Cranial nerves II through XII are grossly intact. Motor and sensory are also intact. Normal speech, volume and content. Symmetrical smile. MUSCULOSKELETAL: Normal extremities with adequate strength and full range of motion. No lower extremity swelling or edema. No calf tenderness. LYMPHATICS: No significant lymphadenopathy is noted PSYCHIATRIC: Normal psychiatric evaluation. Limitations: no limitations Course Vital Signs 09/02/18 09/02/18 09/02/18 09:57 11:17 11:23 Temperature 99.2 F 101.3 F H Pulse Rate 101 H 93 Respiratory 20 Rate Blood Pressure 101/67 O2 Sat by Pulse 88 L Oximetry 09/02/18 09/02/18 09/02/18 11:32 12:00 12:05 Temperature Pulse Rate 92 93 100 Respiratory 54 H Rate Blood Pressure 139/78 O2 Sat by Pulse 95 Oximetry 09/02/18 09/02/18 12:18 13:00 Temperature Pulse Rate 102 H 97 Respiratory 18 Rate Blood Pressure 108/75 O2 Sat by Pulse 98 Oximetry Medical Decision Making - Medical Decision Making EKG shows normal sinus rhythm at 91 bpm ND interval 160 QRS is 90 QT interval 340 QTC is 418. Patient's EKG shows no ST segment elevation or depression Chest x-ray shows some possible atelectasis in the right base. Patient was given Tamiflu the emergency department. 3 Patient continues to have some extra wheezing I will place the patient on steroids and continuous albuterol treatments [id number]. Patient received 3 breathing treatments emergency department steroids. I spoke with Dr. Espino he agreed to admit the patient admitted the patient wr ote admitting orders. - Lab Data Result diagrams: 09/02/18 11:16 09/02/18 11:16 Lab Results 09/02/18 09/02/18 09/02/18 Range/Units 11:16 11:16 11:16 WBC 7.6 (3.8-10.6) k/uL RBC 4.81 (4.30-5.90) m/uL Hgb 13.7 (13.0-17.5) gm/dL Hct 41.7 (39.0-53.0) % MCV 86.8 (80.0-100.0) fL MCH 28.5 (25.0-35.0) pg MCHC 32.9 (31.0-37.0) g/dL RDW 16.9 H (11.5-15.5) % Plt Count 134 L (150-450) k/uL Neutrophils % 81 % Lymphocytes % 6 % Monocytes % 10 % Eosinophils % 0 % Basophils % 0 % Neutrophils # 6.1 (1.3-7.7) k/uL Lymphocytes # 0.4 L (1.0-4.8) k/uL Monocytes # 0.8 (0-1.0) k/uL Eosinophils # 0.0 (0-0.7) k/uL Basophils # 0.0 (0-0.2) k/uL Anisocytosis Slight PT (9.0-12.0) sec INR (<1.2) APTT (22.0-30.0) sec Sodium 136 L (137-145) mmol/L Potassium 4.2 (3.5-5.1) mmol/L Chloride 100 (98-107) mmol/L Carbon Dioxide 29 (22-30) mmol/L Anion Gap 7 mmol/L BUN 16 (9-20) mg/dL Creatinine 0.72 (0.66-1.25) mg/dL Est GFR (CKD-EPI)AfAm >90 (>60 ml/min/1.73 sqM) Est GFR (CKD-EPI)NonAf >90 (>60 ml/min/1.73 sqM) Glucose 124 H (74-99) mg/dL Plasma Lactic Acid Gabriel 0.9 (0.7-2.0) mmol/L Calcium 9.0 (8.4-10.2) mg/dL Total Bilirubin 0.5 (0.2-1.3) mg/dL AST 60 H (17-59) U/L ALT 59 (21-72) U/L Alkaline Phosphatase 68 (38-126) U/L Troponin I (0.000-0.034) ng/mL Total Protein 5.9 L (6.3-8.2) g/dL Albumin 3.7 (3.5-5.0) g/dL Urine Color Urine Appearance (Clear) Urine pH (5.0-8.0) Ur Specific [place] (1.001-1.035) Urine Protein (Negative) Urine Glucose (UA) (Negative) Urine Ketones (Negative) Urine Blood (Negative) Urine Nitrite (Negative) Urine Bilirubin (Negative) Urine Urobilinogen (<2.0) mg/dL Ur Leukocyte Esterase (Negative) Influenza Type A RNA (Not Detectd) Influenza Type B (PCR) (Not Detectd) 09/02/18 09/02/18 09/02/18 Range/Units 11:16 11:16 11:45 WBC (3.8-10.6) k/uL RBC (4.30-5.90) m/uL Hgb (13.0-17.5) gm/dL Hct (39.0-53.0) % MCV (80.0-100.0) fL MCH (25.0-35.0) pg MCHC (31.0-37.0) g/dL RDW (11.5-15.5) % Plt Count (150-450) k/uL Neutrophils % % Lymphocytes % % Monocytes % % Eosinophils % % Basophils % % Neutrophils # (1.3-7.7) k/uL Lymphocytes # (1.0-4.8) k/uL Monocytes # (0-1.0) k/uL Eosinophils # (0-0.7) k/uL Basophils # (0-0.2) k/uL Anisocytosis PT 10.1 (9.0-12.0) sec INR 0.9 (<1.2) APTT 30.7 H (22.0-30.0) sec Sodium (137-145) mmol/L Potassium (3.5-5.1) mmol/L Chloride (98-107) mmol/L Carbon Dioxide (22-30) mmol/L Anion Gap mmol/L BUN (9-20) mg/dL Creatinine (0.66-1.25) mg/dL Est GFR (CKD-EPI)AfAm (>60 ml/min/1.73 sqM) Est GFR (CKD-EPI)NonAf (>60 ml/min/1.73 sqM) Glucose (74-99) mg/dL Plasma Lactic Acid Gabriel (0.7-2.0) mmol/L Calcium (8.4-10.2) mg/dL Total Bilirubin (0.2-1.3) mg/dL AST (17-59) U/L ALT (21-72) U/L Alkaline Phosphatase (38-126) U/L Troponin I 0.016 (0.000-0.034) ng/mL Total Protein (6.3-8.2) g/dL Albumin (3.5-5.0) g/dL Urine Color Urine Appearance (Clear) Urine pH (5.0-8.0) Ur Specific [place] (1.001-1.035) Urine Protein (Negative) Urine Glucose (UA) (Negative) Urine Ketones (Negative) Urine Blood (Negative) Urine Nitrite (Negative) Urine Bilirubin (Negative) Urine Urobilinogen (<2.0) mg/dL Ur Leukocyte Esterase (Negative) Influenza Type A RNA Detected H (Not Detectd) Influenza Type B (PCR) Not Detected (Not Detectd) 09/02/18 Range/Units 12:58 WBC (3.8-10.6) k/uL RBC (4.30-5.90) m/uL Hgb (13.0-17.5) gm/dL Hct (39.0-53.0) % MCV (80.0-100.0) fL MCH (25.0-35.0) pg MCHC (31.0-37.0) g/dL RDW (11.5-15.5) % Plt Count (150-450) k/uL Neutrophils % % Lymphocytes % % Monocytes % % Eosinophils % % Basophils % % Neutrophils # (1.3-7.7) k/uL Lymphocytes # (1.0-4.8) k/uL Monocytes # (0-1.0) k/uL Eosinophils # (0-0.7) k/uL Basophils # (0-0.2) k/uL Anisocytosis PT (9.0-12.0) sec INR (<1.2) APTT (22.0-30.0) sec Sodium (137-145) mmol/L Potassium (3.5-5.1) mmol/L Chloride (98-107) mmol/L Carbon Dioxide (22-30) mmol/L Anion Gap mmol/L BUN (9-20) mg/dL Creatinine (0.66-1.25) mg/dL Est GFR (CKD-EPI)AfAm (>60 ml/min/1.73 sqM) Est GFR (CKD-EPI)NonAf (>60 ml/min/1.73 sqM) Glucose (74-99) mg/dL Plasma Lactic Acid Gabriel (0.7-2.0) mmol/L Calcium (8.4-10.2) mg/dL Total Bilirubin (0.2-1.3) mg/dL AST (17-59) U/L ALT (21-72) U/L Alkaline Phosphatase (38-126) U/L Troponin I (0.000-0.034) ng/mL Total Protein (6.3-8.2) g/dL Albumin (3.5-5.0) g/dL Urine Color Yellow Urine Appearance Clear (Clear) Urine pH 5.5 (5.0-8.0) Ur Specific [place] 1.020 (1.001-1.035) Urine Protein Trace H (Negative) Urine Glucose (UA) Negative (Negative) Urine Ketones Trace H (Negative) Urine Blood Negative (Negative) Urine Nitrite Negative (Negative) Urine Bilirubin Negative (Negative) Urine Urobilinogen <2.0 (<2.0) mg/dL Ur Leukocyte Esterase Negative (Negative) Influenza Type A RNA (Not Detectd) Influenza Type B (PCR) (Not Detectd) Critical Care Time Critical Care Time: Yes Total Critical Care Time: 35 Disposition Clinical Impression: Influenza, COPD with acute exacerbation Disposition: ADMITTED IP TO THIS HOSP Referrals: Luh Louise MD [Primary Care Provider] - 1-2 days Time of Disposition: 13:45
[2018-09-02] MEDS: SODIUM CHLORIDE 0.9% 500 ML 500 ML IV SCH ×2 (11:13→14:18)
[2018-09-02 11:32] LABS: Anisocytosis Slight; Basophils % (A) 0 %; Eosinophils % (A) 0 %; HCT 41.7 % (39.0-53.0); HGB 13.7 gm/dL (13.0-17.5); Lymphocytes # (A) 0.4 k/uL (1.0-4.8); Lymphocytes % (A) 6 %; MCH 28.5 pg (25.0-35.0); MCHC 32.9 g/dL (31.0-37.0); MCV 86.8 fL (80.0-100.0); Mean Platelet Volume 9.4; Monocytes # (A) 0.8 k/uL (0-1.0); Monocytes % (A) 10 %; Neutrophils # (A) 6.1 k/uL (1.3-7.7); Neutrophils % (A) 81 %; Platelet Count 134 k/uL (150-450); RBC 4.81 m/uL (4.30-5.90); RDW 16.9 % (11.5-15.5); WBC 7.6 k/uL (3.8-10.6)
[2018-09-02 11:47] LABS: ALT 59 U/L (21-72); AST 60 U/L (17-59); Albumin 3.7 g/dL (3.5-5.0); Alkaline Phosphatase 68 U/L (38-126); Anion Gap 7 mmol/L; Blood Urea Nitrogen 16 mg/dL (9-20); Carbon Dioxide 29 mmol/L (22-30); Chloride 100 mmol/L (98-107); Glucose 124 mg/dL (74-99); Potassium 4.2 mmol/L (3.5-5.1); Sodium 136 mmol/L (137-145); Total Bilirubin 0.5 mg/dL (0.2-1.3); Total Protein 5.9 g/dL (6.3-8.2)
[2018-09-02 12:01] LABS: INR 0.9 (<1.2); Partial Thromboplastin Time 30.7 sec (22.0-30.0); Prothrombin Time 10.1 sec (9.0-12.0)
[2018-09-02 13:13] LABS: Appearance,Urine Clear (Clear); Bilirubin,Urine Negative (Negative); Blood,Urine Negative (Negative); Color,Urine Yellow; Glucose,Urine (UA) Negative (Negative); Ketones,Urine Trace (Negative); Leukocyte Esterase,Urine Negative (Negative); Nitrite,Urine Negative (Negative); PH, Urine 5.5 (5.0-8.0); Protein,Urine Trace (Negative); Urobilinogen,Urine <2.0 mg/dL (<2.0)
--- NOTE | 2018-09-02 13:13 | XR ---
EXAMINATION TYPE: XR chest 2V DATE OF EXAM: 09/02/2018 COMPARISON: Prior chest x-ray 06/22/2018 HISTORY: Fever, shortness of breath and cough TECHNIQUE: Frontal and lateral views of the chest are obtained. FINDINGS: There is improved aeration as compared to prior exam. Heart size may be accentuated by tammy hnique. No evident pneumothorax or pleural effusion. Patchy basilar density is noted bilaterally. Aor ta is dense. There may be an underlying scoliosis. IMPRESSION: Possible basilar atelectasis, correlate for pneumonia, aeration is improved as compared to prior exam
[2018-09-02] MEDS ORDERED: OSELTAMIVIR 75 MG CAP PO STA (13:40)
[2018-09-02] MEDS ORDERED: IPRATROPIUM-ALBUTEROL 3 ML NEB INHALATION PRN (13:46)
[2018-09-02] MEDS ORDERED: methylPREDNISolone SOD SUCCI 125 MG/2 ML VIAL IV STA (13:46)
[2018-09-02 16:32] VITALS: BMI 39.8
[2018-09-02 17:22] LABS: Glucose,Whole Blood 148 mg/dL (75-99)
[2018-09-02] MEDS ORDERED: LIDOCAINE 5% PATCH TOPICAL PRN (17:24)
[2018-09-02] MEDS ORDERED: TEMAZEPAM 15 MG CAP PO PRN (17:27)
[2018-09-02] MEDS ORDERED: HYDROcodone/APAP 5-325MG 1 EACH TAB PO PRN (17:27)
[2018-09-02] MEDS ORDERED: ACETAMINOPHEN TAB 500 MG TAB PO PRN (17:27)
[2018-09-02] MEDS ORDERED: ONDANSETRON 4 MG/2 ML VIAL IVP PRN (17:27)
[2018-09-02] MEDS ORDERED: AZITHROMYCIN 500 MG in SODIUM CHLORIDE 0.9% 250 ML IVPB SCH (17:30)
[2018-09-02] MEDS ORDERED: methylPREDNISolone SOD SUCCI 125 MG/2 ML VIAL IV SCH (18:00)
[2018-09-02] MEDS: INSULIN ASPART (NovoLOG) 100 UNIT/ML VIAL SQ SCH ×2 (18:04→21:28)
[2018-09-02] MEDS: methylPREDNISolone SOD SUCCI 125 MG/2 ML VIAL IV SCH ×2 (18:04→23:17)
--- NOTE | 2018-09-02 19:52 | HP ---
HISTORY AND PHYSICAL DATE OF SERVICE: 09/02/2018 CHIEF COMPLAINT: Shortness with cough. HISTORY OF PRESENT ILLNESS: This 63-year-old gentleman with a past medical history of multiple medical problems including atrial flutter/fibrillation, COPD, history of CHF, diabetes type 2, hypertension, DJD, history of pulmonary embolism being followed by Dr. Louise and Dr. Srivastava in the outpatient setting, was complaining of shortness of breath and cough for the past several days. The patient apparently took the flu vaccine. Because of increasing difficulty, the patient came to [facility] and was admitted for further evaluation and treatment. Influenza A was positive. The patient also had diffuse body aches, fever going up to 103. Chest x-ray showed possible bibasilar bilateral pneumonia. There is no history of any headache, loss. No chest pain, palpitations, hematochezia or melena at this time. PAST MEDICAL HISTORY: Atrial flutter/fibrillation, asthma, CHF, COPD, diabetes, hypertension, DJD, history of prostate disorder, pulmonary embolism. MEDICATIONS: Prior to admission include home medications are: 1. Metformin 1000 mg p.o. b.i.d. 2. Coenzyme Q 100 mg. 3. Tumeric 59 mg daily. 4. Flomax 0.4 daily. 5. Zocor 40 mg q.h.s. 6. Zoloft 100 mg p.o. daily. 7. Selenium 200 mg b.i.d. 8. Zantac 150 mg b.i.d. 9. Lyrica 300 mg p.o. b.i.d. 10.K-Tab ER 20 mg p.o. daily. 11.Singulair 10 mg p.o. daily. 12.Milk thistle 250 mg p.o. daily. 13.Lidoderm 1 patch topically q.i.d. p.r.n. 14.DuoNeb q.i.d. 15.Lasix 20 mg p.o. 16.Flonase 2 sprays daily. 17.Iron sulfate 320 mg p.o. daily. 18.Cardizem 110 mg. 19.Calcium 1200 mg p.o. daily. 20.Symbicort 160/4.5 two puffs b.i.d. 21.Pulmicort 1 mg b.i.d. p.r.n. 22.Blueberry leaf extract. 23.Betamethasone 1 application b.i.d. 24.Eliquis 5 mg p.o. b.i.d. 25.Albuterol q.i.d. and p.r.n. ALLERGIES: LOPID, ASPIRIN, FENTANYL. FAMILY HISTORY: History of prostate cancer in the family. SOCIAL HISTORY: Previous history of smoking. No history of alcohol intake. REVIEW OF SYSTEMS: ENT: No diminished hearing, vision. CARDIOVASCULAR: As mentioned. RESPIRATORY: As mentioned earlier. GI: No nausea. : No dysuria. NERVOUS SYSTEM: No numbness, weakness. ALLERGY/IMMUNOLOGY: No asthma. MUSCULOSKELETAL: As mentioned earlier. HEMATOLOGY/ONCOLOGY: As mentioned. ENDOCRINE: History of diabetes. No hypothyroid. CONSTITUTIONAL: As mentioned earlier. DERMATOLOGY: Negative. RHEUMATOLOGY: Negative. PSYCHIATRY: As mentioned earlier. PHYSICAL EXAMINATION: The patient is alert and oriented x3. Pulse is 67, blood pressure 116/60, respiration 18, temperature 97.6, pulse ox 93% on 2 L. HEENT: Conjunctivae normal. Oral mucosa moist. Neck is no jugular venous distention. No carotid bruit. No lymph node enlargement. CARDIOVASCULAR: S1, S2. RESPIRATORY: Breath sounds diminished in the bases. Bilateral scattered rhonchi and crackles. Breathing efforts increased. ABDOMEN: Soft, nontender. No mass palpable. LEGS: No edema, no swelling. NERVOUS SYSTEM: Higher functions as mentioned earlier. Moves all 4 limbs. No focal motor or sensory deficits. LYMPHATICS No lymphadenopathy in the neck, axillae, groin. SKIN: No ulcer, rash or bleeding. JOINTS: No active arthropathy. LABS: At this time shows WBC 7.7, hemoglobin 13.2. Sodium is 136, glucose 124. UA noted. Influenza A positive. Chest x-ray personally reviewed by me showed evidence of bibasilar pneumonia. ASSESSMENT: 1. Acute influenza A with bibasilar pneumonia. 2. Chronic obstructive pulmonary disease acute exacerbation. 3. Hyponatremia. 4. Mild thrombocytopenia. 5. History atrial flutter/fibrillation. 6. History of asthma. 7. History of congestive heart failure. 8. Diabetes mellitus type 2. 9. Hypertension. 10.Hyperlipidemia. 11.Degenerative joint disease. 12.History of pneumonia. 13.History of pulmonary embolus. 14.History of sleep apnea. 15.History of bilateral neuropathy. 16.History of bowel resection. 17.History of degenerative joint disease. 18.History of depression. 19.Remote history of nicotine dependence. RECOMMENDATIONS AND DISCUSSION: This 63-year-old gentleman who presented with multiple complex medical issues, will monitor the patient closely. Continue the current management and symptomatic treatment. Will initiate broad-spectrum IV antibiotics, bronchodilators, IV steroids, Tamiflu, resume the home medications. DVT prophylaxis. We will consult Pulmonary, Dr. Aguirre and continue to monitor. Overall prognosis guarded because of multiple complex medical issues. Further recommendations to follow. Copy of dictation forwarded to Dr. Louise who is the primary physician. MMODL / IJN: [id number] /
[2018-09-02] MEDS: OSELTAMIVIR 75 MG CAP PO SCH (21:00)
[2018-09-02] MEDS: metFORMIN 500 MG TAB PO SCH (21:00)
[2018-09-02] MEDS: BETAMETHASONE DIPROPIONATE 0.05% CREAM 15 GM TUBE TOPICAL SCH (21:00)
[2018-09-02] MEDS: PREGABALIN 100 MG CAP PO SCH (21:00)
[2018-09-02] MEDS: APIXABAN 5 MG TAB PO SCH (21:00)
[2018-09-02] MEDS: ATORVASTATIN 20 MG TAB PO SCH (21:00)
[2018-09-02] MEDS: FAMOTIDINE 20 MG TAB PO SCH (21:00)
[2018-09-02 21:14] LABS: Glucose,Whole Blood 197 mg/dL (75-99)
[2018-09-02] MEDS: IPRATROPIUM-ALBUTEROL 3 ML NEB INHALATION SCH (21:28)
[2018-09-02] MEDS: FORMOTEROL FUMARATE 20 MCG/2 ML NEBU INHALATION SCH (21:28)
[2018-09-02] MEDS: BUDESONIDE 1 MG/2 ML NEBU INHALATION PRN (21:28)
[2018-09-02] MEDS: LOPERAMIDE 2 MG CAP PO PRN (23:17)
[2018-09-03] MEDS: methylPREDNISolone SOD SUCCI 125 MG/2 ML VIAL IV SCH ×3 (05:28→17:20)
[2018-09-03] MEDS: FORMOTEROL FUMARATE 20 MCG/2 ML NEBU INHALATION SCH ×2 (06:53→20:38)
[2018-09-03] MEDS: IPRATROPIUM-ALBUTEROL 3 ML NEB INHALATION SCH ×4 (06:53→20:38)
[2018-09-03] MEDS: BUDESONIDE 1 MG/2 ML NEBU INHALATION PRN (06:54)
[2018-09-03 07:12] LABS: Glucose,Whole Blood 154 mg/dL (75-99)
[2018-09-03] MEDS: INSULIN ASPART (NovoLOG) 100 UNIT/ML VIAL SQ SCH ×4 (08:11→20:59)
[2018-09-03] MEDS: FAMOTIDINE 20 MG TAB PO SCH (08:11)
[2018-09-03] MEDS: APIXABAN 5 MG TAB PO SCH ×2 (08:11→20:44)
[2018-09-03] MEDS: CALCIUM CARBONATE 500 MG CHEWABLE PO SCH (08:11)
[2018-09-03] MEDS: PANTOPRAZOLE 40 MG TABLET PO SCH (08:11)
[2018-09-03] MEDS: MONTELUKAST 10 MG TAB PO SCH (08:11)
[2018-09-03] MEDS: POTASSIUM CHLORIDE ER 20 MEQ TAB.ER PO SCH (08:12)
[2018-09-03] MEDS: PREGABALIN 100 MG CAP PO SCH ×2 (08:12→20:43)
[2018-09-03] MEDS: FUROSEMIDE 20 MG TAB PO SCH (08:12)
[2018-09-03] MEDS: DILTIAZEM ORAL 60 MG TAB PO SCH (08:12)
[2018-09-03] MEDS: OSELTAMIVIR 75 MG CAP PO SCH ×2 (08:12→20:43)
[2018-09-03] MEDS: FLUTICASONE 50MCG/SPRAY NASAL 16GM EA NOSTRIL SCH (08:12)
[2018-09-03] MEDS: SERTRALINE 100 MG TAB PO SCH (08:12)
[2018-09-03] MEDS: TAMSULOSIN 0.4 MG CAP.ER.24H PO SCH (08:12)
[2018-09-03] MEDS: metFORMIN 500 MG TAB PO SCH ×2 (08:12→20:44)
[2018-09-03] MEDS: FERROUS SULFATE 325 MG TAB PO SCH (08:12)
[2018-09-03] MEDS: BETAMETHASONE DIPROPIONATE 0.05% CREAM 15 GM TUBE TOPICAL SCH ×2 (08:13→20:44)
[2018-09-03] MEDS ORDERED: NON-FORMULARY DRUG (Selenium [Selenium] 200 MCG) PO SCH (09:00)
[2018-09-03] MEDS ORDERED: NON-FORMULARY DRUG (Ubidecarenone [Co Q-10] 100 MG) PO SCH (09:00)
[2018-09-03] MEDS: LOPERAMIDE 2 MG CAP PO PRN ×2 (09:59→17:32)
[2018-09-03 10:27] LABS: Anisocytosis Slight; Basophils % (A) 0 %; Eosinophils % (A) 1 %; HCT 42.9 % (39.0-53.0); HGB 13.6 gm/dL (13.0-17.5); Lymphocytes # (A) 0.5 k/uL (1.0-4.8); Lymphocytes % (A) 9 %; MCH 28.3 pg (25.0-35.0); MCHC 31.7 g/dL (31.0-37.0); MCV 89.3 fL (80.0-100.0); Mean Platelet Volume 7.9; Monocytes # (A) 0.3 k/uL (0-1.0); Monocytes % (A) 6 %; Neutrophils # (A) 4.4 k/uL (1.3-7.7); Neutrophils % (A) 85 %; Platelet Count 133 k/uL (150-450); RBC 4.81 m/uL (4.30-5.90); RDW 16.8 % (11.5-15.5); WBC 5.2 k/uL (3.8-10.6)
[2018-09-03 10:47] LABS: Anion Gap 9 mmol/L; Blood Urea Nitrogen 17 mg/dL (9-20); Calcium 9.3 mg/dL (8.4-10.2); Carbon Dioxide 29 mmol/L (22-30); Chloride 103 mmol/L (98-107); Glucose 179 mg/dL (74-99); Potassium 4.5 mmol/L (3.5-5.1); Sodium 141 mmol/L (137-145)
[2018-09-03 12:22] LABS: Glucose,Whole Blood 105 mg/dL (75-99)
--- NOTE | 2018-09-03 12:22 | P.CNPUL ---
History of Present Illness Consult date: 09/03/18 Requesting physician: Kandace Espino Reason for consult: dyspnea, abnormal CXR/CT Chief complaint: Shortness of breath, cough congestion History of present illness: This is a very pleasant 63-year-old gentleman who follows with Dr. Louise as his primary care physician. He has a history of diabetes mellitus, hypertension, hyperlipidemia, pulmonary embolism, as her arthritis, enlarged pro state, spinal stenosis, degenerative scoliosis, bowel resections and multiple hernia repairs, he has atrial flutter and is anticoagulated with Eliquis. Preserved LV function.. He also has a history of moderate intermittent chronic bronchial asthma and follows with Dr. Srivastava in our office for the same. He is maintained on Symbicort and Singulair DuoNeb's. He is morbidly obese and was recently found to have severe obstructive sleep apnea with an AHI of 110, severe nocturnal oxygen initiate saturation was recently placed on a CPAP machine in the outpatient setting. He was placed on a pressure of 16 cm with significant improvement in the AHI. He has been compliant. He presented here to the emergency room yesterday with complaints of shortness of breath cough congestion body aches for approximately 5 days prior to his arrival. He did have a temperature up to 103 at home. He did test positive for influenza A. Chest x- ray showed bibasilar atelectasis and suspected pneumonia. He is seen today in consultation on the regular medical floor. He is awake and alert in no acute distress. Sitting up at the bedside. Maintaining O2 saturations in the 90s on 2 L/m per nasal cannula. He's been afebrile. Hemodynamically stable. Urine culture pending. White count 5.2. Hemoglobin 13.6. Creatinine 0.54. He has been initiated on IV Solu-Medrol, DuoNeb inhalations, Pulmicort inhalations, antibiotics in the form of ceftriaxone and azithromycin. He was placed on Tamiflu. Review of Systems Constitutional: Reports fever, Reports lethargy, Reports poor appetite, Reports weakness Eyes: denies blurred vision, denies decreased vision Ears: deny: decreased hearing Ears, nose, mouth and throat: Reports hoarseness, Reports nasal congestion, Reports sore throat Cardiovascular: Reports decreased exercise tolerance, Reports dyspnea on exertion, Reports shortness of breath Respiratory: Reports congestion, Reports cough, Reports sleep apnea, Reports snoring, Reports wheezing Gastrointestinal: Denies abdominal pain, Denies diarrhea, Denies nausea, Denies vomiting Musculoskeletal: Reports myalgias Integumentary: Denies pruritus, Denies rash Neurological: Denies numbness, Denies weakness Psychiatric: Denies anxiety, Denies depression Endocrine: Denies fatigue, Denies weight change Hematologic/Lymphatic: Reports as per HPI Allergic/Immunologic: Reports as per HPI Past Medical History Past Medical History: Atrial Fibrillation, Atrial Flutter, Asthma, Heart Failure, COPD, Diabetes Mellitus, Hyperlipidemia, Hypertension, Osteoarthritis (OA), Pneumonia, Prostate Disorder, Pulmonary Embolus (PE), Skin Disorder, Sleep Apnea/CPAP/BIPAP Additional Past Medical History / Comment(s): neuropathy bilateral feet, dermatitis, enlarged prostate, PE found in 07/2003 while hospitalized for pneumonia, spinal stenosis, degenerative scoliosis, arthritis in multiple joints, migraines, palpitations, has cpap, hx hiatal hernia, "bleeds easliy" History of Any Multi-Drug Resistant Organisms: None Reported Past Surgical History: Bowel Resection, Hernia Repair, Joint Replacement, Orthopedic Surgery, Tonsillectomy Additional Past Surgical History / Comment(s): Bilateral hip replacements, bilateral cataract surgery with lens implants, hiatal hernia repair, incisional hernia repair with mesh-had bowel complication that resulted in a bowel resection , bronchoscopies., colonoscopy, ulna nerve rt elbow surgery, Past Anesthesia/Blood Transfusion Reactions: Previous Problems w/ Anesthesia, Family History of Problems w/ Anesthesia Additional Past Anesthesia/Blood Transfusion Reaction / Comment(s): Problem with being "twilighted" - become very combative. Slow to wake up. Uncle has same symptoms with "twilight". Past Psychological History: Depression Additional Psychological History / Comment(s): . Smoking Status: Former smoker Past Alcohol Use History: None Reported Additional Past Alcohol Use History / Comment(s): Pt started smoking in 1968. He quit smoking in 1995 Past Drug Use History: None Reported - Past Family History Father Family Medical History: Cancer Additional Family Medical History / Comment(s): Father had prostrate cancer. Mother Family Medical History: Cancer Additional Family Medical History / Comment(s): Mother had skin cancer. Brother(s) Family Medical History: Cancer Additional Family Medical History / Comment(s): Brother of lung cancer. He is . Medications and Allergies Home Medications Medication Instructions Recorded Confirmed Type Pregabalin [Lyrica] 300 mg PO BID 08/18/17 09/02/18 History Sertraline [Zoloft] 100 mg PO DAILY 08/18/17 09/02/18 History Fluticasone Nasal [place] [Flonase 2 spray EA NOSTRIL DAILY 01/29/18 09/02/18 History Nasal [place]] Montelukast Sodium [Singulair] 10 mg PO DAILY 01/29/18 09/02/18 History Ranitidine HCl [Zantac] 150 mg PO BID 01/29/18 09/02/18 History Simvastatin [Zocor] 40 mg PO HS 01/29/18 09/02/18 History Albuterol Nebulized [Ventolin 2.5 mg INHALATION RT-QID PRN 05/02/18 09/02/18 History Nebulized] Budesonide/Formoterol Fumarate 2 puff INHALATION BID 05/02/18 09/02/18 History [Symbicort 160-4.5 Mcg Inhaler] Tamsulosin HCl [Flomax] 0.4 mg PO QAM 05/02/18 09/02/18 History Apixaban [Eliquis] 5 mg PO BID #180 tab 05/04/18 09/02/18 Rx Blueberry [place] Extract 100 mg PO DAILY 07/11/18 09/02/18 History Calcium Carbonate [Calcium] 1,200 mg PO DAILY 07/11/18 09/02/18 History Cognium Hydrolysate 100 mg PO BID 07/11/18 09/02/18 History Diltiazem HCl [Cardizem] 120 mg PO DAILY 07/11/18 09/02/18 History Furosemide [Lasix] 20 mg PO DAILY 07/11/18 09/02/18 History Ipratropium-Albuterol Nebulize 3 ml INHALATION RT-QID 07/11/18 09/02/18 History [Duoneb 0.5 mg-3 mg/3 ml Soln] Potassium Chloride [K-Tab ER] 20 meq PO DAILY 07/11/18 09/02/18 History Albuterol Inhaler [Ventolin Hfa 2 puff INHALATION RT-QID PRN 09/02/18 09/02/18 History Inhaler] Balance B-50 1 tab PO DAILY 09/02/18 09/02/18 History Betamethasone Dipropionate 1 applic TOPICAL BID 09/02/18 09/02/18 History [Diprolene AF 0.05% Cream] Budesonide 1 mg INHALATION RT-BID PRN 09/02/18 09/02/18 History Ferrous Sulfate [Feosol] 325 mg PO DAILY 09/02/18 09/02/18 History Lidocaine 5% Patch [Lidoderm] 1 patch TOPICAL DAILY PRN 09/02/18 09/02/18 History Milk Thistle 500mg 250 mg PO DAILY 09/02/18 09/02/18 History Selenium 200 mcg PO DAILY 09/02/18 09/02/18 History Turmeric Root Extract [Turmeric] 1,500 mg PO DAILY 09/02/18 09/02/18 History Ubidecarenone [Co Q-10] 100 mg PO DAILY 09/02/18 09/02/18 History metFORMIN HCL [Glucophage] 1,000 mg PO BID 09/02/18 09/02/18 History Allergies Allergy/AdvReac Type Severity Reaction Status Date / Time gemfibrozil [From Lopid] Allergy Unknown Verified 09/02/18 10:25 aspirin AdvReac Abdominal Verified 09/02/18 10:25 Pain fentanyl AdvReac Hallucinati Verified 09/02/18 10:25 ons Physical Exam Vitals: Vital Signs Temp Pulse Pulse Pulse Resp BP BP 09/03/18 07:15 82 09/03/18 07:04 80 09/03/18 06:54 79 09/03/18 06:16 97.2 F L 77 20 09/02/18 23:00 98.1 F 67 20 121/76 09/02/18 21:48 76 09/02/18 21:38 72 09/02/18 21:37 72 09/02/18 21:28 72 09/02/18 17:34 68 09/02/18 17:26 09/02/18 17:24 67 09/02/18 16:22 97.6 F 67 18 116/60 09/02/18 15:00 97.9 F 71 15 108/67 09/02/18 14:21 98.9 F 81 20 108/67 09/02/18 13:00 97 18 108/75 09/02/18 12:18 102 H 09/02/18 12:05 100 BP Pulse Ox 09/03/18 07:15 09/03/18 07:04 09/03/18 06:54 94 L 09/03/18 06:16 120/70 94 L 09/02/18 23:00 93 L 09/02/18 21:48 09/02/18 21:38 09/02/18 21:37 09/02/18 21:28 09/02/18 17:34 09/02/18 17:26 96 09/02/18 17:24 09/02/18 16:22 09/02/18 15:00 93 L 09/02/18 14:21 95 09/02/18 13:00 98 09/02/18 12:18 09/02/18 12:05 Intake and Output 09/02/18 09/03/18 09/03/18 22:59 06:59 14:59 Intake Total 200 200 Balance 200 200 Intake: Oral 200 200 Other: Voiding Method Toilet # Voids 1 1 2 # Bowel Movements 1 - Constitutional General appearance: morbidly obese, no acute distress - EENT Eyes: EOMI, PERRLA ENT: hearing grossly normal Ears: bilateral: normal - Neck Neck: normal ROM Carotids: bilateral: upstroke normal Thyroid: bilateral: normal size - Respiratory Respiratory: bilateral: rhonchi, wheezing - Cardiovascular Rhythm: regular Heart sounds: normal: S1, S2 - Gastrointestinal General gastrointestinal: normal bowel sounds - Integumentary Integumentary: normal turgor - Neurologic Neurologic: CNII-XII intact - Musculoskeletal Musculoskeletal: generalized weakness - Psychiatric Psychiatric: A&O x's 3, appropriate affect, intact judgment & insight Results - Laboratory Findings CBC and BMP: 09/03/18 10:14 09/03/18 10:14 PT/INR, D-dimer PT 10.1 sec (9.0-12.0) 09/02/18 11:16 INR 0.9 (<1.2) 09/02/18 11:16 Abnormal lab findings: Abnormal Labs 09/02/18 09/02/18 09/02/18 11:16 11:16 11:16 RDW 16.9 H Plt Count 134 L Lymphocytes # 0.4 L APTT 30.7 H Sodium 136 L Creatinine Glucose 124 H POC Glucose (mg/dL) AST 60 H Total Protein 5.9 L Urine Protein Urine Ketones Influenza Type A RNA 09/02/18 09/02/18 09/02/18 11:45 12:58 17:20 RDW Plt Count Lymphocytes # APTT Sodium Creatinine Glucose POC Glucose (mg/dL) 148 H AST Total Protein Urine Protein Trace H Urine Ketones Trace H Influenza Type A RNA Detected H 09/02/18 09/03/18 09/03/18 21:11 07:09 10:14 RDW 16.8 H Plt Count 133 L Lymphocytes # 0.5 L APTT Sodium Creatinine Glucose POC Glucose (mg/dL) 197 H 154 H AST Total Protein Urine Protein Urine Ketones Influenza Type A RNA 09/03/18 10:14 RDW Plt Count Lymphocytes # APTT Sodium Creatinine 0.54 L Glucose 179 H POC Glucose (mg/dL) AST Total Protein Urine Protein Urine Ketones Influenza Type A RNA - Diagnostic Findings Chest x-ray: image reviewed Assessment and Plan Assessment: Impression: #1 Acute exacerbation of moderate intermittent chronic bronchial asthma, complicated by bilateral infiltrates secondary to community-acquired pneumonia along with influenza A infection. #2 Morbid obesity with recent diagnosis of severe obstructive sleep apnea with an AHI of 110 and severe nocturnal desaturations. Initiated on CPAP therapy at 16 cm of water and thus far has been compliant. #3 Atrial fibrillation/flutter currently in normal sinus rhythm. Status post cardioversion on 07/15/2018. Anticoagulated with Eliquis. #4 Hypertension. #5 Hyperlipidemia. #6 Diabetes mellitus. #7 History of pulmonary embolism. #8 Benign prosthetic hypertrophy. #9 Ventral Hernia Secondary to Multiple Hernia Repairs and Bowel Resection. #10 Remote history of smoking. Plan: The patient was seen and evaluated by Dr. Aguirre. Chest x-ray and labs were reviewed. We will continue with the current treatment plan including IV Solu-Medrol, DuoNeb inhalations, Pulmicort inhalations, antibiotics. He has been initiated on Tamiflu. He does have his home CPAP machine here. We will repeat a chest x-ray in the a.m. We will continue to follow and make further recommendations based on his clinical status. I, the cosigning physician, performed a history & physical examination of the patient. Lungs sounds with bilateral scattered rhonchi, end expiratory wheeze. Maintaining good O2 saturations in the 90s on 2 L/m per nasal cannula. I discussed the assessment and plan of care with my nurse practitioner, Narcisa amaya. I attest to the above note as dictated by her. Time with Patient: Greater than 30
[2018-09-03] MEDS: LEVOFLOXACIN 750 MG TAB PO SCH (15:30)
[2018-09-03 17:15] LABS: Glucose,Whole Blood 149 mg/dL (75-99)
--- NOTE | 2018-09-03 18:43 | P.PN ---
Subjective Progress Note Date: 09/03/18 Hospital course: This a 63-year-old gentleman admitted with acute community- acquired bilateral pneumonia secondary to acute influenza a, acute asthma exacerbation and multiple other medical issues. Maintained on nebulized bronchodilators, steroids, IV antibiotics. Breathing improving but remains significantly congested with wheezing. Afebrile, normal WBC. Good diet intake, no nausea or vomiting. Blood sugars controlled. Objective - Vital Signs Vital signs: Vital Signs Temp 97.1 F L 09/03/18 14:20 Pulse 90 09/03/18 16:04 Resp 18 09/03/18 16:04 BP 135/85 09/03/18 14:20 Pulse Ox 90 L 09/03/18 14:20 Intake & Output 09/02/18 09/03/18 09/03/18 18:59 06:59 18:59 Intake Total 400 480 Balance 400 480 Weight 140.614 kg Intake: Oral 400 480 Other: Voiding Method Toilet # Voids 1 2 # Bowel Movements 1 - Exam PHYSICAL EXAM: VITAL SIGNS: As above GENERAL: Sitting up at side of bed, no acute distress HEENT: Conjunctivae normal. eyes normal. Oral mucosa moist NECK: No JVD. No thyroid enlargement. No LNs CARDIOVASCULAR: S1, S2 muffled. No murmur RESPIRATION: Breath sounds diminished in the bases. Scattered rhonchi, expirat ory wheezing. Occasional fine bibasilar crackles. ABDOMEN: Soft,nontender. No guarding. no masses palpable. Bowel sounds heard. LEGS: No edema. no swelling PSYCHIATRY: Alert and oriented -3, mood and affect normal. NERVOUS SYSTEM: Cranial N 2-12 grossly normal. Moves all 4 limbs. Diffuse weakness No focal deficits. Skin: no ulcer no rash Lymphatic system. No LN neck axilla or groin. - Labs CBC & Chem 7: 09/03/18 10:14 09/03/18 10:14 Labs: Abnormal Lab Results - Last 24 Hours (Table) 09/02/18 09/03/18 09/03/18 Range/Units 21:11 07:09 10:14 RDW 16.8 H (11.5-15.5) % Plt Count 133 L (150-450) k/uL Lymphocytes # 0.5 L (1.0-4.8) k/uL Creatinine (0.66-1.25) mg/dL Glucose (74-99) mg/dL POC Glucose (mg/dL) 197 H 154 H (75-99) mg/dL 09/03/18 09/03/18 09/03/18 Range/Units 10:14 12:18 17:09 RDW (11.5-15.5) % Plt Count (150-450) k/uL Lymphocytes # (1.0-4.8) k/uL Creatinine 0.54 L (0.66-1.25) mg/dL Glucose 179 H (74-99) mg/dL POC Glucose (mg/dL) 105 H 149 H (75-99) mg/dL Microbiology - Last 24 Hours (Table) 09/02/18 11:58 Blood Culture - Preliminary Blood No Growth after 24 hours 09/02/18 12:58 Urine Culture - Preliminary Urine,Voided Assessment and Plan Assessment: -Acute community-acquired bibasilar pneumonia secondary to acute influenza A -Acute on chronic moderate intermittent asthma exacerbation secondary to the above - History of atrial flutter/atrial fibrillation, recent cardioversion 07/15 18. Anticoagulated on Eliquis -Diabetes mellitus type 2 -Hypertension -Hyperlipidemia -Degenerative joint disease -Remote history of nicotine dependence -Morbid obesity, BMI 39.8 -Obstructive sleep apnea -History of PE Plan: Continue on current medication regime ,monitoring and symptomatic treatment. Maintain Tamiflu, IV antibiotics, nebulized bronchodilators, IV steroids. Increase ambulation as tolerated. Aggressive pulmonary toileting. Discharge planning in progress for tomorrow pending pulmonary clearance. The impression and plan of care has been dictated as directed. : I performed a history and examination of this patient, discussed the same with the dictator. I agree with the dictator's note ,documented as a scribe. Any additional findings or plans will be noted.
[2018-09-03 20:41] LABS: Glucose,Whole Blood 160 mg/dL (75-99)
[2018-09-03] MEDS: ATORVASTATIN 20 MG TAB PO SCH (20:44)
[2018-09-04] MEDS: methylPREDNISolone SOD SUCCI 125 MG/2 ML VIAL IV SCH ×3 (00:14→11:55)
[2018-09-04] MEDS: BUDESONIDE 1 MG/2 ML NEBU INHALATION PRN (07:03)
[2018-09-04] MEDS: IPRATROPIUM-ALBUTEROL 3 ML NEB INHALATION SCH ×2 (07:03→11:04)
[2018-09-04] MEDS: FORMOTEROL FUMARATE 20 MCG/2 ML NEBU INHALATION SCH (07:03)
[2018-09-04 07:15] LABS: Glucose,Whole Blood 159 mg/dL (75-99)
[2018-09-04] MEDS: FLUTICASONE 50MCG/SPRAY NASAL 16GM EA NOSTRIL SCH (07:53)
[2018-09-04 07:54] VITALS: BP 122/87; RESP 16; TEMP 97.9
[2018-09-04] MEDS: SERTRALINE 100 MG TAB PO SCH (07:54)
[2018-09-04] MEDS: TAMSULOSIN 0.4 MG CAP.ER.24H PO SCH (07:54)
[2018-09-04] MEDS: metFORMIN 500 MG TAB PO SCH (07:54)
[2018-09-04] MEDS: POTASSIUM CHLORIDE ER 20 MEQ TAB.ER PO SCH (07:54)
[2018-09-04] MEDS: MONTELUKAST 10 MG TAB PO SCH (07:54)
[2018-09-04] MEDS: OSELTAMIVIR 75 MG CAP PO SCH (07:54)
[2018-09-04] MEDS: FERROUS SULFATE 325 MG TAB PO SCH (07:54)
[2018-09-04] MEDS: PANTOPRAZOLE 40 MG TABLET PO SCH (07:54)
[2018-09-04] MEDS: APIXABAN 5 MG TAB PO SCH (07:54)
[2018-09-04] MEDS: DILTIAZEM ORAL 60 MG TAB PO SCH (07:54)
[2018-09-04] MEDS: FUROSEMIDE 20 MG TAB PO SCH (07:54)
[2018-09-04] MEDS: INSULIN ASPART (NovoLOG) 100 UNIT/ML VIAL SQ SCH ×2 (07:55→11:57)
[2018-09-04] MEDS: PREGABALIN 100 MG CAP PO SCH (07:55)
[2018-09-04] MEDS: BETAMETHASONE DIPROPIONATE 0.05% CREAM 15 GM TUBE TOPICAL SCH (07:55)
[2018-09-04] MEDS: CALCIUM CARBONATE 500 MG CHEWABLE PO SCH (07:55)
[2018-09-04 11:15] VITALS: PULSE 94
[2018-09-04 11:44] LABS: Anion Gap 12 mmol/L; Anisocytosis Slight; Basophils % (A) 0 %; Blood Urea Nitrogen 24 mg/dL (9-20); Calcium 9.5 mg/dL (8.4-10.2); Carbon Dioxide 28 mmol/L (22-30); Chloride 100 mmol/L (98-107); Eosinophils % (A) 0 %; Glucose 163 mg/dL (74-99); HCT 42.5 % (39.0-53.0); HGB 13.5 gm/dL (13.0-17.5); Lymphocytes # (A) 0.4 k/uL (1.0-4.8); Lymphocytes % (A) 4 %; MCH 28.5 pg (25.0-35.0); MCHC 31.6 g/dL (31.0-37.0); MCV 90.1 fL (80.0-100.0); Mean Platelet Volume 7.9; Monocytes # (A) 0.5 k/uL (0-1.0); Monocytes % (A) 6 %; Neutrophils # (A) 7.6 k/uL (1.3-7.7); Neutrophils % (A) 89 %; Platelet Count 150 k/uL (150-450); Potassium 4.4 mmol/L (3.5-5.1); RBC 4.72 m/uL (4.30-5.90); RDW 16.6 % (11.5-15.5); Sodium 140 mmol/L (137-145); WBC 8.6 k/uL (3.8-10.6)
--- NOTE | 2018-09-04 11:50 | CDI ---
Documentation Clarification Form Date: 09/04/2018 11:26:25 AM From: Moon Fraire RN, CCDS Admit Date: 09/02/2018 1:47:00 PM Patient Name: Jaquan Shoemaker Visit Number: [id number] Discharge Date: ATTENTION: The Clinical Documentation Specialists (CDI) and [facility] Coding Staff appreciate your assistance in clarifying documentation. Please respond to the clarification below the line at the bottom and electronically sign. The CDI & [facility] Coding staff will review the response and follow-up if needed. Please note: Queries are made part of the Legal Health Record. If you have any questions, please contact the author of this message via ITS. Dr. Violeta Mcnamara Atrial Fibrillation is documented in the past medical history with ongoing treatment and further clarification is needed. History/Risk Factors: Atrial Fibrillation, Atrial Flutter Asthma, Heart failure COPD, Diabetes Mellitus, Hypertension Clinical Indicators: 63-year-old male who present with shortness of breath ongoing for about 5 days. She denies any palpitations EKG/telemetry: normal sinus rhythm at 91 bpm Treatment: Eliquis PO Cardizem PO Monitor PT/INR In your professional opinion, can you please clarify the type of Atrial Fibrillation, if known? Chronic/Permanent Paroxysmal Persistent Other, please specify Unable to determine (Last Revision: September 2017) in discharge summary MTDD
[2018-09-04] MEDS: LEVOFLOXACIN 750 MG TAB PO SCH (11:55)
[2018-09-04 12:03] LABS: Glucose,Whole Blood 138 mg/dL (75-99)
--- NOTE | 2018-09-04 12:20 | CDI ---
Documentation Clarification Form Date: 09/04/2018 12:05:00 PM From: Moon Fraire RN, CCDS Admit Date: 09/02/2018 1:47:00 PM Patient Name: Jaquan Shoemaker Visit Number: [id number] Discharge Date: ATTENTION: The Clinical Documentation Specialists (CDI) and [facility] Coding Staff appreciate your assistance in clarifying documentation. Please respond to the clarification below the line at the bottom and electronically sign. The CDI & [facility] Coding staff will review the response and follow-up if needed. Please note: Queries are made part of the Legal Health Record. If you have any questions, please contact the author of this message via ITS. Dr. Violeta Mcnamara CHF is documented in the in the past medical history and your H&P and clarification is needed. History/Risk Factors: COPD, Diabetes mellitus type 2, Atrial Fibrillation, Congestive Heart Failure, Clinical Indicators: 63-bienven[age]-old male with present with complaints of shortness of breath and cough. Lungs: Breath sounds diminished in the bases. Bilateral scattered rhonchi and crackles, breathing efforts increased VS/Pulse OX: 116/60 67 18 97.6. 93 % 2/L NC Echocardiogram Results: (05/03/18) EF 50-55 % Chest X Ray: Bibasilar bilateral pneumonia Treatment: Lasix PO daily Cardizem PO In your professional opinion, can you please clarify the acuity and type of CHF if known? Systolic Heart Failure: Acute Chronic Acute on Chronic Diastolic Heart Failure: Acute Chronic Acute on Chronic Systolic & Diastolic Heart Failure: Acute Chronic Acute on Chronic Heart Failure Unable to Determine Other, please specify (Last Revision: September 2017) In discharge summary MTDD
--- NOTE | 2018-09-04 15:46 | P.PN ---
Subjective Progress Note Date: 09/04/18 Principal diagnosis: Shortness of breath cough and congestion This is a very pleasant 63-year-old gentleman who follows with Dr. Louise as his primary care physician. He has a history of diabetes mellitus, hypertension, hyperlipidemia, pulmonary embolism, as her arthritis, enlarged prostate, spinal stenosis, degenerative scoliosis, bowel resections and multiple hernia repairs, he has atrial flutter and is anticoagulated with Eliquis. Preserved LV function.. He also has a history of moderate intermittent chronic bronchial asthma and follows with Dr. Srivastava in our office for the same. He is maintained on Symbicort and Singulair DuoNeb's. He is morbidly obese and was recently found to have severe obstructive sleep apnea with an AHI of 110, severe nocturnal oxygen initiate saturation was recently placed on a CPAP machine in the outpatient setting. He was placed on a pressure of 16 cm with significant improvement in the AHI. He has been compliant. He presented here to the emergency room yesterday with complaints of shortness of breath cough congestion body aches for approximately 5 days prior to his arrival. He did have a temperature up to 103 at home. He did test positive for influenza A. Chest x- ray showed bibasilar atelectasis and suspected pneumonia. He is seen today in consultation on the regular medical floor. He is awake and alert in no acute distress. Sitting up at the bedside. Maintaining O2 saturations in the 90s on 2 L/m per nasal cannula. He's been afebrile. Hemodynamically stable. Urine culture pending. White count 5.2. Hemoglobin 13.6. Creatinine 0.54. He has been initiated on IV Solu-Medrol, DuoNeb inhalations, Pulmicort inhalations, antibiotics in the form of ceftriaxone and azithromycin. He was placed on Tamiflu. On 09/04/2018 patient is seen in follow-up on medical surgical floor. No acute distress, his breathing has improved, but his labs have been noted, and fairly unremarkable, vital signs are stable, no fever or chills, blood and sputum cultures are negative. Patient has been treated with the combination of IV steroids, DuoNeb inhalations, antibiotics in the form of ceftriaxone and azithromycin, and Tamiflu, good response to inpatient treatment. Breathing easier, on today's exam lung sounds are positive for very minimal end expiratory wheezes, much improved from yesterday's exam. From pulmonary perspective patient is stable for discharge home today. Objective - Vital Signs Vital signs: Vital Signs Temp 97.9 F 09/04/18 07:10 Pulse 94 09/04/18 11:15 Resp 16 09/04/18 07:10 BP 122/87 09/04/18 07:10 Pulse Ox 96 09/04/18 07:10 Intake & Output 09/03/18 09/04/18 09/04/18 18:59 06:59 18:59 Intake Total 480 Balance 480 Intake: Oral 480 Other: Voiding Method Toilet Toilet Toilet # Voids 2 2 2 # Bowel Movements 1 - Exam GENERAL EXAM: Alert, pleasant, 63-year-old obese white male, comfortable in no apparent distress. HEAD: Normocephalic/atraumatic. EYES: Normal reaction of pupils, equal size. Conjunctiva pink, sclera white. NOSE: Clear with pink turbinates. THROAT: No erythema or exudates. NECK: No masses, no JVD, no thyroid enlargement, no adenopathy. CHEST: No chest wall deformity. Symmetrical expansion. LUNGS: Equal air entry with minimal wheezing CVS: Regular rate and rhythm, normal S1 and S2, no gallops, no murmurs, no rubs ABDOMEN: Soft, nontender. No hepatosplenomegaly, normal bowel sounds, no guarding or rigidity. EXTREMITIES: No clubbing, no edema, no cyanosis, 2+ pulses and upper and lower extremities. MUSCULOSKELETAL: Muscle strength and tone normal. SPINE: No scoliosis or deformity SKIN: No rashes CENTRAL NERVOUS SYSTEM: Alert and oriented -3. No focal deficits, tone is normal in all 4 extremities. PSYCHIATRIC: Alert and oriented -3. Appropriate affect. Intact judgment and insight. - Labs CBC & Chem 7: 09/04/18 10:59 09/04/18 10:59 Labs: Abnormal Lab Results - Last 24 Hours (Table) 09/03/18 09/03/18 09/04/18 Range/Units 17:09 20:39 07:09 RDW (11.5-15.5) % Lymphocytes # (1.0-4.8) k/uL BUN (9-20) mg/dL Creatinine (0.66-1.25) mg/dL Glucose (74-99) mg/dL POC Glucose (mg/dL) 149 H 160 H 159 H (75-99) mg/dL 09/04/18 09/04/18 09/04/18 Range/Units 10:59 10:59 11:56 RDW 16.6 H (11.5-15.5) % Lymphocytes # 0.4 L (1.0-4.8) k/uL BUN 24 H (9-20) mg/dL Creatinine 0.62 L (0.66-1.25) mg/dL Glucose 163 H (74-99) mg/dL POC Glucose (mg/dL) 138 H (75-99) mg/dL Microbiology - Last 24 Hours (Table) 09/02/18 11:58 Blood Culture - Preliminary Blood No Growth after 48 hours 09/03/18 08:20 Gram Stain - Preliminary Sputum 09/02/18 12:58 Urine Culture - Final Urine,Voided Assessment and Plan Plan: #1 Acute exacerbation of moderate intermittent chronic bronchial asthma, complicated by bilateral infiltrates secondary to community-acquired pneumonia along with influenza A infection. #2 Morbid obesity with recent diagnosis of severe obstructive sleep apnea with an AHI of 110 and severe nocturnal desaturations. Initiated on CPAP therapy at 16 cm of water and thus far has been compliant. #3 Atrial fibrillation/flutter currently in normal sinus rhythm. Status post cardioversion on 07/15/2018. Anticoagulated with Eliquis. #4 Hypertension. #5 Hyperlipidemia. #6 Diabetes mellitus. #7 History of pulmonary embolism. #8 Benign prosthetic hypertrophy. #9 Ventral Hernia Secondary to Multiple Hernia Repairs and Bowel Resection. #10 Remote history of smoking. Plan: Patient is doing quite well, responded well to inpatient treatments, IV antibiotics, Tamiflu and breathing treatments. Vital signs are stable, from pulmonary perspective patient is stable for discharge home today. I performed a history & physical examination of the patient and discussed their management with my nurse practitioner, Leena Antonio. I reviewed the nurse practitioner's note and agree with the documented findings and plan of care. Lung sounds are positive for pituitary wheezing. The findings and the impression was discussed with the patient. I attest to the documentation by the nurse practitioner. Time with Patient: Less than 30
--- NOTE | 2018-09-04 17:15 | P.DS ---
Providers Date of admission: 09/02/18 13:47 Expected date of discharge: 09/04/18 Attending physician: Kandace Grossman Consults: 09/02/18 17:26 Consult Physician Routine Consulting Provider: Sue Aguirre Consult Reason/Comments: copd Do you want consulting provider notified?: Yes Primary care physician: Luh [facility] Course: Final Diagnoses: -Acute community-acquired bibasilar pneumonia secondary to acute influenza A -Acute on chronic moderate intermittent asthma exacerbation secondary to the above -Chronic atrial flutter/atrial fibrillation, recent cardioversion 07/15 18. Anticoagulated on Eliquis. Currently sinus rhythm. -Diabetes mellitus type 2 -Hypertension -Hyperlipidemia -Degenerative joint disease -Remote history of nicotine dependence -Morbid obesity, BMI 39.8 -Obstructive sleep apnea -History of PE -History of diastolic congestive heart failure, stable Hospital course:This is a 63-year-old gentleman admitted with acute community- acquired bilateral pneumonia secondary to acute influenza a, acute asthma exacerbation and multiple other medical issues. Maintained on nebulized bronchodilators, steroids, IV antibiotics. Breathing improving but remains significantly congested with wheezing. Afebrile, normal WBC. Good diet intake, no nausea or vomiting. Blood sugars controlled.Evaluated by pulmonary. Significant clinical improvement. Patient has been cleared by pulmonary for discharge. Patient is being discharged home in a stable condition with guarded prognosis. EXAM: GENERAL: Alert and oriented 3, no acute distress CARDIOVASCULAR: S1, S2 muffled. No murmur RESPIRATION: Breath sounds diminished in the bases. Scattered rhonchi, fine bibasilar crackles. ABDOMEN: Soft,nontender. No guarding. no masses palpable. Bowel sounds heard. NERVOUS SYSTEM: No focal deficits. The impression and plan of care has been dictated as directed. : I performed a history and examination of this patient, discussed the same with the dictator. I agree with the dictator's note ,documented as a scribe. Any additional findings or plans will be noted. Time taken: 35 minutes Patient Condition at Discharge: Stable Plan - Discharge Summary Discharge Rx Participant: Yes New Discharge Prescriptions: New Levofloxacin [Levaquin] 750 mg PO Q24H #5 tab predniSONE 10 mg PO DIRECTED #30 tab Oseltamivir [Tamiflu] 75 mg PO Q12HR #6 cap Acetaminophen Tab [Tylenol] 500 mg PO Q6HR PRN tab PRN Reason: Fever And/ Or Pain Continue Sertraline [Zoloft] 100 mg PO DAILY Pregabalin [Lyrica] 300 mg PO BID Simvastatin [Zocor] 40 mg PO HS Ranitidine HCl [Zantac] 150 mg PO BID Fluticasone Nasal [place] [Flonase Nasal [place]] 2 spray EA NOSTRIL DAILY Montelukast Sodium [Singulair] 10 mg PO DAILY Budesonide/Formoterol Fumarate [Symbicort 160-4.5 Mcg Inhaler] 2 puff INHALATION BID Tamsulosin HCl [Flomax] 0.4 mg PO QAM Apixaban [Eliquis] 5 mg PO BID #180 tab Potassium Chloride [K-Tab ER] 20 meq PO DAILY Diltiazem HCl [Cardizem] 120 mg PO DAILY Calcium Carbonate [Calcium] 1,200 mg PO DAILY Ipratropium-Albuterol Nebulize [Duoneb 0.5 mg-3 mg/3 ml Soln] 3 ml INHALATION RT-QID Furosemide [Lasix] 20 mg PO DAILY Cognium Hydrolysate 100 mg PO BID [place] Extract 100 mg PO DAILY Balance B-50 1 tab PO DAILY Milk Thistle 500mg 250 mg PO DAILY Albuterol Inhaler [Ventolin Hfa Inhaler] 2 puff INHALATION RT-QID PRN PRN Reason: Shortness Of Breath Betamethasone Dipropionate [Diprolene AF 0.05% Cream] 1 applic TOPICAL BID Budesonide 1 mg INHALATION RT-BID PRN PRN Reason: Shortness Of Breath Ferrous Sulfate [Iron (65 MG Elemental)] 325 mg PO DAILY Lidocaine 5% Patch [Lidoderm 5% Patch] 1 patch TOPICAL DAILY PRN PRN Reason: Pain metFORMIN HCL [Glucophage] 1,000 mg PO BID Selenium 200 mcg PO DAILY Turmeric Root Extract [Turmeric] 1,500 mg PO DAILY Ubidecarenone [Co Q-10] 100 mg PO DAILY Albuterol Nebulized [Ventolin Nebulized] 2.5 mg INHALATION RT-QID PRN #1 PRN Reason: Shortness Of Breath Discharge Medication List Pregabalin [Lyrica] 300 mg PO BID 08/18/17 [History] Sertraline [Zoloft] 100 mg PO DAILY 08/18/17 [History] Fluticasone Nasal [place] [Flonase Nasal [place]] 2 spray EA NOSTRIL DAILY 01/29/18 [History] Montelukast Sodium [Singulair] 10 mg PO DAILY 01/29/18 [History] Ranitidine HCl [Zantac] 150 mg PO BID 01/29/18 [History] Simvastatin [Zocor] 40 mg PO HS 01/29/18 [History] Budesonide/Formoterol Fumarate [Symbicort 160-4.5 Mcg Inhaler] 2 puff INHALATION BID 05/02/18 [History] Tamsulosin HCl [Flomax] 0.4 mg PO QAM 05/02/18 [History] Apixaban [Eliquis] 5 mg PO BID #180 tab 05/04/18 [Rx] [place] Extract 100 mg PO DAILY 07/11/18 [History] Calcium Carbonate [Calcium] 1,200 mg PO DAILY 07/11/18 [History] Cognium Hydrolysate 100 mg PO BID 07/11/18 [History] Diltiazem HCl [Cardizem] 120 mg PO DAILY 07/11/18 [History] Furosemide [Lasix] 20 mg PO DAILY 07/11/18 [History] Ipratropium-Albuterol Nebulize [Duoneb 0.5 mg-3 mg/3 ml Soln] 3 ml INHALATION RT-QID 07/11/18 [History] Potassium Chloride [K-Tab ER] 20 meq PO DAILY 07/11/18 [History] Albuterol Inhaler [Ventolin Hfa Inhaler] 2 puff INHALATION RT-QID PRN 09/02/18 [History] Balance B-50 1 tab PO DAILY 09/02/18 [History] Betamethasone Dipropionate [Diprolene AF 0.05% Cream] 1 applic TOPICAL BID 09/02/18 [History] Budesonide 1 mg INHALATION RT-BID PRN 09/02/18 [History] Ferrous Sulfate [Iron (65 MG Elemental)] 325 mg PO DAILY 09/02/18 [History] Lidocaine 5% Patch [Lidoderm 5% Patch] 1 patch TOPICAL DAILY PRN 09/02/18 [History] Milk Thistle 500mg 250 mg PO DAILY 09/02/18 [History] Selenium 200 mcg PO DAILY 09/02/18 [History] Turmeric Root Extract [Turmeric] 1,500 mg PO DAILY 09/02/18 [History] Ubidecarenone [Co Q-10] 100 mg PO DAILY 09/02/18 [History] metFORMIN HCL [Glucophage] 1,000 mg PO BID 09/02/18 [History] Acetaminophen Tab [Tylenol] 500 mg PO Q6HR PRN tab 09/04/18 [Rx] Albuterol Nebulized [Ventolin Nebulized] 2.5 mg INHALATION RT-QID PRN #1 09/04/18 [Rx] Levofloxacin [Levaquin] 750 mg PO Q24H #5 tab 09/04/18 [Rx] Oseltamivir [Tamiflu] 75 mg PO Q12HR #6 cap 09/04/18 [Rx] predniSONE 10 mg PO DIRECTED #30 tab 09/04/18 [Rx] Follow up Appointment(s)/Referral(s): Luh Louise MD [Primary Care Provider] - 3 Days Giovanni Srivastava DO [Family Provider] - 10 Days Ambulatory/Diagnostic Orders: Complete Blood Count w/diff [LAB.AMB] Location: None Selected Discharge Disposition: HOME SELF-CARE
== END 2018-09-04 14:16 | disposition home or self-care (01) | DRG 194 ==
LOC: EC 09:46 → 3NMEDONC 13:47 → 4MS4W 15:29
PROVIDERS: ADMIT Internal Medicine; ATTEND Internal Medicine
DX: J10.00 Influenza due to other identified influenza virus with unspecified type of pneumonia (principal); J44.0 Chronic obstructive pulmonary disease with (acute) lower respiratory infection; J44.1 Chronic obstructive pulmonary disease with (acute) exacerbation; E87.1 Hypo-osmolality and hyponatremia; I48.92 Unspecified atrial flutter; I50.32 Chronic diastolic (congestive) heart failure; J45.21 Mild intermittent asthma with (acute) exacerbation; J98.11 Atelectasis; D69.6 Thrombocytopenia, unspecified; E11.40 Type 2 diabetes mellitus with diabetic neuropathy, unspecified; Z79.84 Long term (current) use of oral hypoglycemic drugs; E66.01 Morbid (severe) obesity due to excess calories; E78.5 Hyperlipidemia, unspecified; G47.33 Obstructive sleep apnea (adult) (pediatric); Z99.89 Dependence on other enabling machines and devices; I11.0 Hypertensive heart disease with heart failure; I48.2 Chronic atrial fibrillation; Z79.01 Long term (current) use of anticoagulants; M15.9 Polyosteoarthritis, unspecified; K43.9 Ventral hernia without obstruction or gangrene; N40.0 Benign prostatic hyperplasia without lower urinary tract symptoms; Z68.39 Body mass index [BMI] 39.0-39.9, adult; Z79.51 Long term (current) use of inhaled steroids; Z79.52 Long term (current) use of systemic steroids; Z79.899 Other long term (current) drug therapy; Z80.1 Family history of malignant neoplasm of trachea, bronchus and lung; Z80.8 Family history of malignant neoplasm of other organs or systems; Z86.711 Personal history of pulmonary embolism; Z87.01 Personal history of pneumonia (recurrent); Z87.891 Personal history of nicotine dependence; Z90.49 Acquired absence of other specified parts of digestive tract; Z96.1 Presence of intraocular lens; Z96.643 Presence of artificial hip joint, bilateral; Z98.41 Cataract extraction status, right eye; Z98.42 Cataract extraction status, left eye; Z88.6 Allergy status to analgesic agent; Z88.5 Allergy status to narcotic agent; Z88.8 Allergy status to other drugs, medicaments and biological substances; Z80.42 Family history of malignant neoplasm of prostate; G43.909 Migraine, unspecified, not intractable, without status migrainosus; M41.9 Scoliosis, unspecified; M48.00 Spinal stenosis, site unspecified
CPT/HCPCS: 36415; 71046; 80048; 80053; 81003; 83605; 84484; 85025; 85610; 85730; 87040; 87070; 87086; 87205; 87502; 93005; 94640; 94644; 94760; 96361; 96365; 96366; 96367; 96375; 96376; 99291

== ENCOUNTER → 2018-10-15 | Outpatient (CLI) | payer MEDICARE ==
--- NOTE | 2018-10-15 19:49 | PN ---
PROGRESS NOTE This is a 63-year-old male patient with severe symptomatic obstructive sleep apnea with an AHI of 110. I am seeing him today for a compliancy check. He also has history of congestive heart failure, atrial fibrillation/flutter, hypertension, hyperlipidemia, diabetes mellitus and bronchial asthma. On today's evaluation he feels great. He is on a CPAP pressure of 16 cm of water. He is using a [employer] large-sized full-face mask. He has no specific complaints. His treatment is quite successful for now. Based on the compliance data that the patient has offered, data collected between 08/26/2018 and 09/24/2018 and over the past 30 days, the patient has been utilizing his CPAP 93% of the time, and with CPAP use for more than 4 hours 87% of the time. His average CPAP use is around 7 hours and 7 minutes. AHI while on treatment is down to 2.7 and the patient's leak factor is around 31 L/minute. No central apneas have been noted and the patient is benefitting significantly from his CPAP unit. He has no specific complaints. His treatment is successful for now. REVIEW OF SYSTEMS: Fourteen-point review of systems was done and positive findings are all mentioned above in the history of present illness. No nocturia. No nausea or vomiting. No chest pain or shortness of breath. No heartburn. No palpitation. No hypersomnia or sleepiness during the day. The symptoms of tiredness and fatigue are improving significantly. No nighttime palpitations. No restlessness in the lower extremities. No sleepwalking. No sleeptalking. No headaches. No other complaints otherwise for now. PHYSICAL EXAMINATION: His BP is 133/87, pulse 89, respirations 16, temperature 98.8, weight 322, G[place] score 12 and saturation 94% on room air. GENERAL APPEARANCE: Calm, comfortable. No acute distress. Head is atraumatic, normocephalic. NECK: Supple. There is no JVD. No goiter or neck masses. Mallampati class IV. LUNGS: Clear to auscultation. HEART: Heart sounds are irregular. Positive S1, S2. No S3, S4. No murmurs. ABDOMEN: Soft, nontender. No organomegaly. EXTREMITIES: No edema. No cyanosis or clubbing. NEUROLOGIC: Alert and oriented x3. No focal neurological deficits. PSYCHIATRIC: Negative for anxiety or depression. Skin is negative for any wounds or ulceration. IMPRESSION: 1. Severe symptomatic obstructive sleep apnea with an apnea/hypopnea index of 110, currently on CPAP pressure of 16 cm of water. Treatment has been extremely successful. 2. Hypersomnia, improved. 3. History of periodic limb movements, improved with CPAP therapy. 4. Paroxysmal atrial fibrillation/flutter, currently in normal sinus rhythm. 5. Congestive heart failure, well compensated. 6. Benign prostatic hypertrophy. 7. Hyperlipidemia. 8. Hypertension. 9. Chronic bronchial asthma. 10.Diabetes mellitus. 11.Acid reflux. PLAN: 1. Continue CPAP at same level of pressure, which will be a pressure of 16 cm of water. 2. Keep the same mask interface. 3. Compliance data was checked, and treatment is successful. 4. Encourage weight loss. 5. Implement good sleep hygiene measures. 6. Will continue to follow. MMYANICKL / CLIFTONN: [id number] /
== END | disposition home or self-care (01) ==
LOC: SLEEP 14:48
PROVIDERS: ATTEND Internal Medicine Critical Care Medicine
DX: G47.33 Obstructive sleep apnea (adult) (pediatric) (principal); I48.0 Paroxysmal atrial fibrillation; I48.92 Unspecified atrial flutter; I11.0 Hypertensive heart disease with heart failure; I50.9 Heart failure, unspecified; N40.0 Benign prostatic hyperplasia without lower urinary tract symptoms; E78.5 Hyperlipidemia, unspecified; J45.909 Unspecified asthma, uncomplicated; E11.9 Type 2 diabetes mellitus without complications; K21.9 Gastro-esophageal reflux disease without esophagitis; Z99.89 Dependence on other enabling machines and devices

== ENCOUNTER → 2018-10-21 | Outpatient (CLI) | payer MEDICARE ==
--- NOTE | 2018-10-21 13:38 | XR ---
EXAMINATION TYPE: XR chest 2V DATE OF EXAM: 10/21/2018 COMPARISON: 09/13/2018 TECHNIQUE: PA and lateral views submitted. HISTORY: Cough and congestion FINDINGS: The lungs are clear and there is no pneumothorax or focal pneumonia. Subsegmental changes left lung base are stable compatible atelectasis or resolving infiltrate. Tiny left pleural effusion appear st able. Underlying COPD not excluded. IMPRESSION: 1. Stable left basilar infiltrate or atelectasis. Tiny left pleural effusion suspected.
== END | disposition home or self-care (01) ==
LOC: RADXRMAIN 12:56
PROVIDERS: ATTEND Family Medicine
DX: R06.2 Wheezing (principal)
CPT/HCPCS: 71046

== ENCOUNTER → 2018-11-04 | Outpatient (CLI) | payer MEDICARE | END | disposition home or self-care (01) | LOC: LABWHC1 13:33 | PROVIDERS: ATTEND Internal Medicine Critical Care Medicine | DX: J45.909 Unspecified asthma, uncomplicated (principal) | CPT/HCPCS: 36415; 82785; 85008 ==

== ENCOUNTER → 2018-11-08 | Day surgery (SDC) | payer MEDICARE ==
[2018-11-06 15:10] VITALS: BMI 43.1
[~2018-11-08] MED LIST changes: -ALPRAZolam 0.25 MG TAB PO PRN; -ALPRAZolam 0.5 MG TAB PO PRN; -ASPIRIN 325 MG TAB PO STA; -ATORVASTATIN 80 MG TAB PO STA; +ATROPINE SULFATE 0.4 MG/ML 1 ML VIAL IM ONE; -BENZOCAINE SPRAY 1 CAN MUCOUS MEM ONE; +GLYCOPYRROLATE 0.2 MG/ML 2 ML VIAL ONE; -HEPARIN SODIUM 1,000 UN/ML (10ML VL) IV ONE; -HEPARIN SODIUM 1,000 UN/ML (10ML VL) ONE; -IOPAMIDOL-370 125ML BTL INJ ONE; -IV FLUID CONTINUATION 1,000 ML IV ONE; +KETAMINE 10 MG/ML 20 ML VIAL ONE; +LACTATED RINGERS 1,000 ML IV SCH; -LIDOCAINE 1% INJ 10MG/ML (20 ML MDV) ONE; -LIDOCAINE 1% INJ 10MG/ML (20 ML MDV) SQ ONE; +LIDOCAINE 2% (PF) 20 MG/ML 5 ML VIAL INHALATION ONE; +LIDOCAINE 2% INJ 20 MG/ML INTRATRACH ONE; +LIDOCAINE VISCOUS 300 MG/15 ML CUP MUCOUS MEM ONE; -MIDAZOLAM 2 MG/2 ML VIAL IV ONE; +MIDAZOLAM 2 MG/2 ML VIAL ONE; -NITROGLYCERIN SL TABS 0.4 MG TAB SUBLINGUAL PRN; -RX INFO: IV CONTRAST WAS GIVEN 1 EACH MISC MISCELLANE PRN; -SODIUM CHLORIDE 0.9% 1,000 ML IV ONE; -SODIUM CHLORIDE 0.9% 1,000 ML in EMPTY BAG 1 BAG IV ONE; -VERAPAMIL 2.5 MG/ML 2 ML AMP ONE; -VERAPAMIL SYRINGE (5 MG/10 ML) INTRAARTER ONE
[2018-11-08 11:18] VITALS: TEMP 97.9
[2018-11-08 11:36] LABS: Glucose,Whole Blood 142 mg/dL (75-99)
[2018-11-08 11:49] VITALS: RESP 16
--- NOTE | 2018-11-08 12:36 | PCN ---
PROCEDURE NOTE PROCEDURE: Bronchoscopy, BAL right middle lobe. PREOPERATIVE DIAGNOSIS: Bronchitis. POSTOPERATIVE DIAGNOSIS: Bronchitis. SLITTER PROCESSED FILM: Dr. Srivastava. PROCEDURE: COMB FIXER provided unconscious sedation and general anesthesia. There was informed consent. There was universal timeout. After the patient was adequately sedated and being fully monitored, the bronchoscope was then inserted transorally. We used a bite block. The hypopharynx was identified. The hypopharyngeal structures including anterior commissure, true cords, false cords, arytenoids, piriform sinuses, right and left vallecula and epiglottis all appeared normal. After topicalization, the bronchoscope was pushed through the glottic opening into the trachea. There was some tracheomalacia. Tracheal karley was sharp. There were secretions noted in the distal trachea. They were purulent in nature. Next, there was a thorough evaluation of both the right lung and the left lung. The right upper lobe and its 3 segments, right middle lobe and its 2 segments, right lower lobe and its 5 segments, left upper lobe proper and its 2 segments, the lingula and its 2 segments and left lower lobe and its 4 segments all had similar findings of diffuse airway erythema and hyperemia. There was diffuse bronchitis throughout. There was mucosal friability. The patient bled easily. There were thick purulent secretions particularly noted in the right lower lobe. The bronchoscope was then wedged into the right middle lobe. The BAL took place. The patient tolerated the procedure well. There was no immediate complications. The bronchoscope was then withdrawn. The patient will be recovered. The specimens will be sent to the laboratory for analysis. MMODL / IJN: [id number] /
[2018-11-08 13:02] VITALS: BP 112/67; PULSE 81
[2018-11-08 14:26] LABS: Appearance,BF Bloody; Nucleated Cells, Body Fluid 810 /uL; RBC, Body Fluid 81000 /uL
[2018-11-08 14:29] LABS: Mononuclear WBC,Body Fluid 16 %; Polynuclear WBC,Body Fluid 82 %; Total Cells Counted,Body Fluid 100
== END | disposition home or self-care (01) ==
LOC: ORWHC2ENDO 10:32
PROVIDERS: ATTEND Internal Medicine Critical Care Medicine
DX: J40 Bronchitis, not specified as acute or chronic (principal); J44.0 Chronic obstructive pulmonary disease with (acute) lower respiratory infection; J18.9 Pneumonia, unspecified organism; I11.0 Hypertensive heart disease with heart failure; I50.9 Heart failure, unspecified; I48.91 Unspecified atrial fibrillation; E78.5 Hyperlipidemia, unspecified; G47.33 Obstructive sleep apnea (adult) (pediatric); E11.42 Type 2 diabetes mellitus with diabetic polyneuropathy; K21.9 Gastro-esophageal reflux disease without esophagitis; E78.00 Pure hypercholesterolemia, unspecified; M48.00 Spinal stenosis, site unspecified; Z88.8 Allergy status to other drugs, medicaments and biological substances; Z86.718 Personal history of other venous thrombosis and embolism; Z86.711 Personal history of pulmonary embolism; Z88.5 Allergy status to narcotic agent; Z88.6 Allergy status to analgesic agent; Z99.89 Dependence on other enabling machines and devices; Z87.01 Personal history of pneumonia (recurrent); Z96.642 Presence of left artificial hip joint; Z87.891 Personal history of nicotine dependence; Z79.01 Long term (current) use of anticoagulants; Z79.84 Long term (current) use of oral hypoglycemic drugs; Z79.899 Other long term (current) drug therapy; Z88.1 Allergy status to other antibiotic agents
CPT/HCPCS: 94640; 87798 ×3; 87496; 87498; 87529; 88108; 88305; 89050; 87252; 87502; 87634; 87070; 87205; 87116; 87102; 87206; 31624; J2001 ×2; J2250; J0461; J2704

== ENCOUNTER → 2019-05-07 | Outpatient (CLI) | payer MEDICARE ==
[2019-05-07 17:19] LABS: African American GFR (CKD) >90 (>60 ml/min/1.73 sqM); Blood Urea Nitrogen 29 mg/dL (9-20); Non-African American GFR(CKD) >90 (>60 ml/min/1.73 sqM)
--- NOTE | 2019-05-07 21:31 | CT ---
EXAMINATION TYPE: CT chest w con DATE OF EXAM: 05/07/2019 COMPARISON: 05/02/2018 HISTORY: 64-year-old male abnormal lung field, SOB, CHF. hx of PE TECHNIQUE: Contiguous axial scanning of the chest after the administration of 100 mL of Isovue 300. Coronal/sagittal reconstructions performed. CT DLP: 921.2mGycm. Automatic exposure control utilized for a dose reduction. FINDINGS: Heart normal size without pericardial effusion. Stable aneurysm ascending aorta 4.4 cm with conventional arch vessel branching anatomy. Enlarged borderline enlarged caliber to the main right and the pulmonary arteries at 3.1 and 2.5 cm, respectively, suggesting underlying pulmonary arterial hypertension. Scattered mediastinal lymph nodes remain mildly enlarged but smaller than prior. Precarinal lymph nod e measures 1.2 cm versus 1.5 cm, previously. Right tracheobronchial angle lymph node is 1.1 cm versus 1.5 cm, previously. No progressive thoracic lymphadenopathy as compared to 05/02/2018. Period Interval resolution of the extensive airspace disease right upper lobe and right midlung. Prominent bandlike opacities at the left base suggesting scarring or atelectasis. No new consolidation or pleural effusion. Some calcified right hilar lymph nodes compatible with prior granulomatous disease. Mild diffuse bron chial wall thickening is noted. Visualized upper abdomen shows moderate stool. Bones: Dextro convex curvature with moderate to advanced degenerative disc disease towards the left i n the midthoracic spine. Additional degenerative disc disease lumbar junction and visualized upper sobia mbar spine. IMPRESSION: 1. Interval clearance of the pneumonic infiltrates seen in the right upper lobe and right midlung on 05/02/2018. A new bandlike left basilar opacities could represent scarring or atelectasis. 2. Mildly enlarged mediastinal lymph nodes measuring up to 1.2 cm have decreased in size from 018 suggesting a postinflammatory etiology. 3. Some calcified right hilar lymph nodes suggest prior granulomatous disease. Mild diffuse bronchial wall thickening suggesting bronchitis or asthma. 4. Stable 4.4 cm aneurysm ascending aorta. There may be underlying pulmonary hypertension. Clinically correlate.
== END ==
LOC: RADCTMAIN 16:29
PROVIDERS: ATTEND Internal Medicine Critical Care Medicine
DX: I71.2 Thoracic aortic aneurysm, without rupture (principal); R91.8 Other nonspecific abnormal finding of lung field; R59.0 Localized enlarged lymph nodes; Z88.8 Allergy status to other drugs, medicaments and biological substances; Z88.6 Allergy status to analgesic agent; Z88.1 Allergy status to other antibiotic agents
CPT/HCPCS: 82565; 84520; 71260; 36415; Q9967

== ENCOUNTER 2019-06-28 16:48 | Inpatient (IN) | payer MEDICARE ==
[2019-06-28] MEDS ORDERED: SODIUM CHLORIDE 0.9% 500 ML 500 ML IV STA ×3 (17:17→19:02)
[2019-06-28] MEDS ORDERED: PANTOPRAZOLE 40 MG/10 ML VIAL IVP STA (17:17)
[2019-06-28] MEDS ORDERED: SODIUM CHLORIDE 0.9% 1,000 ML IV STA (17:17)
[2019-06-28 17:26] LABS: Basophils % (A) 0 %; Eosinophils # (A) 0.1 k/uL (0-0.7); Eosinophils % (A) 1 %; HCT 29.1 % (39.0-53.0); HGB 9.9 gm/dL (13.0-17.5); Lymphocytes # (A) 0.9 k/uL (1.0-4.8); Lymphocytes % (A) 7 %; MCHC 34.2 g/dL (31.0-37.0); MCV 93.6 fL (80.0-100.0); Mean Platelet Volume 10.2; Monocytes # (A) 0.8 k/uL (0-1.0); Monocytes % (A) 6 %; Neutrophils # (A) 10.9 k/uL (1.3-7.7); Neutrophils % (A) 84 %; Platelet Count 190 k/uL (150-450); RBC 3.11 m/uL (4.30-5.90)
[2019-06-28 17:38] LABS: ALT 21 U/L (4-49); AST 27 U/L (17-59); African American GFR (CKD) >90 (>60 ml/min/1.73 sqM); Albumin 3.4 g/dL (3.5-5.0); Alkaline Phosphatase 56 U/L (38-126); Anion Gap 7 mmol/L; Blood Urea Nitrogen 42 mg/dL (9-20); Calcium 9.4 mg/dL (8.4-10.2); Carbon Dioxide 23 mmol/L (22-30); Chloride 105 mmol/L (98-107); Creatine Kinase 115 U/L (55-170); Glucose 161 mg/dL (74-99); Magnesium 1.8 mg/dL (1.6-2.3); Non-African American GFR(CKD) 87 (>60 ml/min/1.73 sqM); Potassium 4.5 mmol/L (3.5-5.1); Sodium 135 mmol/L (137-145); Total Bilirubin 0.3 mg/dL (0.2-1.3); Total Protein 5.2 g/dL (6.3-8.2)
--- NOTE | 2019-06-28 19:52 | ED ---
GI Bleed HPI - General Chief complaint: GI Bleed Stated complaint: Palpitations/sob/rectal bleeding Time Seen by Provider: 06/28/19 17:01 Source: patient, RN notes reviewed Mode of arrival: ambulatory Limitations: no limitations - History of Present Illness Initial comments: This is a 64-year-old male who presents with complaints of some shortness of br eath/difficulty breathing a racing heart for past 2 days he also started having bright red blood per rectum as well as black stools. He felt lightheaded and felt weak when he would try to get up and ambulate. No prior history of GI bleed did have some epigastric discomfort also. No focal weakness no fevers chills nausea vomiting sweats or other symptoms per the patient's daughter does appear pale from his usual coloration. - Related Data Home Medications Medication Instructions Recorded Confirmed Pregabalin [Lyrica] 300 mg PO BID 08/18/17 06/28/19 Sertraline [Zoloft] 100 mg PO DAILY 08/18/17 06/28/19 Montelukast Sodium [Singulair] 10 mg PO DAILY 01/29/18 06/28/19 Ranitidine HCl [Zantac] 150 mg PO BID 01/29/18 06/28/19 Simvastatin [Zocor] 40 mg PO DAILY 01/29/18 06/28/19 Budesonide/Formoterol Fumarate 2 puff INHALATION RT-BID 05/02/18 06/28/19 [Symbicort 160-4.5 Mcg Inhaler] Tamsulosin HCl [Flomax] 0.4 mg PO QAM 05/02/18 06/28/19 Calcium Carbonate [Calcium] 1,200 mg PO DAILY 07/11/18 06/28/19 Furosemide [Lasix] 20 mg PO BID 07/11/18 06/28/19 Potassium Chloride [K-Tab ER] 20 meq PO BID 07/11/18 06/28/19 Albuterol Inhaler [Ventolin Hfa 2 puff INHALATION RT-QID PRN 09/02/18 06/28/19 Inhaler] Betamethasone Dipropionate 1 applic TOPICAL DAILY 09/02/18 06/28/19 [Diprolene AF 0.05% Cream] Cholecalciferol [Vitamin D3 (25 1,000 unit PO DAILY 06/28/19 06/28/19 Mcg = 1000 Iu)] Clobetasol Propionate [Temovate 1 applic TOPICAL DAILY 06/28/19 06/28/19 0.05% Cream] Diltiazem HCl [Cartia Xt] 120 mg PO DAILY 06/28/19 06/28/19 Fluticasone Nasal Bend [Flonase 2 spr EA NOSTRIL BID 06/28/19 06/28/19 Nasal Bend] Ipratropium-Albuterol Nebulize 3 ml INHALATION RT-QID PRN 06/28/19 06/28/19 [Duoneb 0.5 mg-3 mg/3 ml Soln] [place] 500 mg PO QID 06/28/19 06/28/19 metFORMIN HCL 1,000 mg PO BID 06/28/19 06/28/19 Previous Rx's Medication Instructions Recorded Apixaban [Eliquis] 5 mg PO BID #180 tab 05/04/18 Allergies Allergy/AdvReac Type Severity Reaction Status Date / Time gemfibrozil [From Lopid] Allergy Unknown Verified 06/28/19 19:10 aspirin AdvReac Abdominal Verified 06/28/19 19:10 Pain fentanyl AdvReac Hallucinati Verified 06/28/19 19:10 ons Review of Systems ROS Statement: Those systems with pertinent positive or pertinent negative responses have been documented in the HPI. ROS Other: All systems not noted in ROS Statement are negative. Past Medical History Past Medical History: Atrial Fibrillation, Atrial Flutter, Asthma, Heart Failure, COPD, Diabetes Mellitus, GERD/Reflux, Hyperlipidemia, Hypertension, Osteoarthritis (OA), Pneumonia, Prostate Disorder, Pulmonary Embolus (PE), Skin Disorder, Sleep Apnea/CPAP/BIPAP Additional Past Medical History / Comment(s): neuropathy bilateral feet, dermatitis, enlarged prostate, PE found in 07/2003 while hospitalized for pneumonia, spinal stenosis, degenerative scoliosis, arthritis in multiple joints, migraines, palpitations, uses cpap, "bleeds easily", hosp. in August w/influenza-can't seem to "shake" cough History of Any Multi-Drug Resistant Organisms: None Reported Past Surgical History: Bowel Resection, Heart Catheterization, Hernia Repair, Joint Replacement, Orthopedic Surgery, Tonsillectomy Additional Past Surgical History / Comment(s): Bilateral hip replacements, bilateral cataracts removed, hiatal hernia repair, incisional hernia repair with mesh-had bowel complication that resulted in a bowel resection , bro nchoscopies., colonoscopy, ulna nerve rt elbow surgery, cardioversion, ARNOL Past Anesthesia/Blood Transfusion Reactions: Previous Problems w/ Anesthesia, Family History of Problems w/ Anesthesia Additional Past Anesthesia/Blood Transfusion Reaction / Comment(s): Problem with being "twilighted" - becomes very combative. Slow to wake up. Uncle has same symptoms with "twilight". Past Psychological History: Depression Smoking Status: Former smoker Past Alcohol Use History: None Reported Past Drug Use History: None Reported - Past Family History Father Family Medical History: Cancer Additional Family Medical History / Comment(s): Father had prostrate cancer. Mother Family Medical History: Cancer Additional Family Medical History / Comment(s): Mother had skin cancer. Brother(s) Family Medical History: Cancer Additional Family Medical History / Comment(s): Brother of lung cancer. He is . General Exam - General Exam Comments Initial Comments: Is a well-developed well-nourished awake alert oriented 3 male Limitations: no limitations General appearance: alert, in no apparent distress Head exam: Present: atraumatic, normocephalic, normal inspection Eye exam: Present: normal appearance, PERRL, EOMI. Absent: scleral icterus, conjunctival injection, periorbital swelling ENT exam: Present: normal exam, mucous membranes moist Neck exam: Present: normal inspection. Absent: tenderness, meningismus, lymphadenopathy Respiratory exam: Present: normal lung sounds bilaterally. Absent: respiratory distress, wheezes, rales, rhonchi, stridor Cardiovascular Exam: Present: normal rhythm, tachycardia, normal heart sounds. Absent: systolic murmur, diastolic murmur, rubs, gallop, clicks GI/Abdominal exam: Present: soft, normal bowel sounds. Absent: distended, tenderness, guarding, rebound, rigid, bruit, pulsatile mass Rectal exam: Present: heme (+) stool, other (Heme positive brown stool with some burgundy streaks) Extremities exam: Present: normal inspection, full ROM, normal capillary refill. Absent: tenderness, pedal edema, joint swelling, calf tenderness Back exam: Present: normal inspection Neurological exam: Present: alert, oriented X3, CN II-XII intact Psychiatric exam: Present: normal affect, normal mood Skin exam: Present: warm, dry, intact, normal color. Absent: rash Course Vital Signs 06/28/19 06/28/19 06/28/19 16:50 17:56 18:23 Temperature 98.9 F Pulse Rate 108 H 97 97 Respiratory 20 16 16 Rate Blood Pressure 90/58 80/62 103/65 O2 Sat by Pulse 93 L 98 Oximetry 06/28/19 06/28/19 06/28/19 19:00 19:43 19:45 Temperature 98.2 F 98.8 F Pulse Rate 93 98 89 Respiratory 16 18 18 Rate Blood Pressure 75/62 98/63 91/63 O2 Sat by Pulse 97 97 97 Oximetry 06/28/19 19:55 Temperature 98.1 F Pulse Rate 88 Respiratory 18 Rate Blood Pressure 94/60 O2 Sat by Pulse 96 Oximetry - Reevaluation(s) Reevaluation #1: 06/28/19 19:54 Patient was reevaluated by me and several occasions he did have a variable blood pressure though at rest he was asymptomatic. Reevaluation #2: 06/28/19 20:15 Patient has several hypotensive episodes in has result was given one unit of blood. He also has some abdominal pain he was given pain medication. Medical Decision Making - Lab Data Result diagrams: 06/28/19 17:19 06/28/19 17:07 Lab Results 06/28/19 06/28/19 06/28/19 Range/Units 17:07 17:07 17:07 WBC (3.8-10.6) k/uL RBC (4.30-5.90) m/uL Hgb (13.0-17.5) gm/dL Hct (39.0-53.0) % MCV (80.0-100.0) fL MCH (25.0-35.0) pg MCHC (31.0-37.0) g/dL RDW (11.5-15.5) % Plt Count (150-450) k/uL Neutrophils % % Lymphocytes % % Monocytes % % Eosinophils % % Basophils % % Neutrophils # (1.3-7.7) k/uL Lymphocytes # (1.0-4.8) k/uL Monocytes # (0-1.0) k/uL Eosinophils # (0-0.7) k/uL Basophils # (0-0.2) k/uL APTT 24.3 (22.0-30.0) sec Sodium 135 L (137-145) mmol/L Potassium 4.5 (3.5-5.1) mmol/L Chloride 105 (98-107) mmol/L Carbon Dioxide 23 (22-30) mmol/L Anion Gap 7 mmol/L BUN 42 H (9-20) mg/dL Creatinine 0.92 (0.66-1.25) mg/dL Est GFR (CKD-EPI)AfAm >90 (>60 ml/min/1.73 sqM) Est GFR (CKD-EPI)NonAf 87 (>60 ml/min/1.73 sqM) Glucose 161 H (74-99) mg/dL Calcium 9.4 (8.4-10.2) mg/dL Magnesium 1.8 (1.6-2.3) mg/dL Total Bilirubin 0.3 (0.2-1.3) mg/dL AST 27 (17-59) U/L ALT 21 (4-49) U/L Alkaline Phosphatase 56 (38-126) U/L Creatine Kinase 115 (55-170) U/L Troponin I <0.012 (0.000-0.034) ng/mL Total Protein 5.2 L (6.3-8.2) g/dL Albumin 3.4 L (3.5-5.0) g/dL Stool Occult Blood (Negative) Blood Type Blood Type Recheck Bld Type Recheck Status Antibody Screen Crossmatch Spec Expiration Date 06/28/19 06/28/19 06/28/19 Range/Units 17:07 17:19 17:44 WBC 13.0 H (3.8-10.6) k/uL RBC 3.11 L (4.30-5.90) m/uL Hgb 9.9 L (13.0-17.5) gm/dL Hct 29.1 L (39.0-53.0) % MCV 93.6 (80.0-100.0) fL MCH 32.0 (25.0-35.0) pg MCHC 34.2 (31.0-37.0) g/dL RDW 14.0 (11.5-15.5) % Plt Count 190 (150-450) k/uL Neutrophils % 84 % Lymphocytes % 7 % Monocytes % 6 % Eosinophils % 1 % Basophils % 0 % Neutrophils # 10.9 H (1.3-7.7) k/uL Lymphocytes # 0.9 L (1.0-4.8) k/uL Monocytes # 0.8 (0-1.0) k/uL Eosinophils # 0.1 (0-0.7) k/uL Basophils # 0.0 (0-0.2) k/uL APTT (22.0-30.0) sec Sodium (137-145) mmol/L Potassium (3.5-5.1) mmol/L Chloride (98-107) mmol/L Carbon Dioxide (22-30) mmol/L Anion Gap mmol/L BUN (9-20) mg/dL Creatinine (0.66-1.25) mg/dL Est GFR (CKD-EPI)AfAm (>60 ml/min/1.73 sqM) Est GFR (CKD-EPI)NonAf (>60 ml/min/1.73 sqM) Glucose (74-99) mg/dL Calcium (8.4-10.2) mg/dL Magnesium (1.6-2.3) mg/dL Total Bilirubin (0.2-1.3) mg/dL AST (17-59) U/L ALT (4-49) U/L Alkaline Phosphatase (38-126) U/L Creatine Kinase (55-170) U/L Troponin I (0.000-0.034) ng/mL Total Protein (6.3-8.2) g/dL Albumin (3.5-5.0) g/dL Stool Occult Blood Positive (Negative) Blood Type O Negative Blood Type Recheck O Neg Bld Type Recheck Status No Antibody Screen NEGATIVE Crossmatch See Detail Spec Expiration Date 07/01/20197 - EKG Data -: EKG Interpreted by [facility] EKG shows normal: sinus rhythm (Sinus rhythm with sinus arrhythmia the rate was 98. Interval 140 QRS duration 86 daily since QTC 348/[address]-T wave ch anges) Critical Care Time Critical Care Time: Yes Critical Care Time: 35 minutes of critical care time which includes initial presentation with history physical labs x-rays multiple reevaluation the patient discussed with the patient and family regarding findings discussed with the admitting service of Dr. Mcnamara admission orders neck mentation the above Disposition Clinical Impression: Upper GI bleed, Anemia, Hypotensive episode Disposition: ADMITTED IP TO THIS HOSP Condition: Fair Referrals: Luh Louise MD [Primary Care Provider] - 1-2 days
[2019-06-28] MEDS ORDERED: HYDROmorphone 1 MG/ML 1 ML SYRINGE IVP STA (19:59)
[2019-06-28] MEDS ORDERED: NALOXONE 0.4 MG/ML 1 ML VIAL IV PRN (20:17)
[2019-06-28] MEDS ORDERED: ONDANSETRON 4 MG/2 ML VIAL IVP PRN (20:17)
--- NOTE | 2019-06-28 20:41 | XR ---
EXAMINATION TYPE: XR KUB DATE OF EXAM: 06/28/2019 COMPARISON: NONE HISTORY: GI bleeding TECHNIQUE: 2 views supine FINDINGS: Bowel gas pattern is normal. There is no sign of intestinal obstruction or pneumoperitoneum . There is mild thoracolumbar levoscoliosis. There are no pathologic calcifications over the kidneys. There is bilateral hip prosthesis. IMPRESSION: Nonacute abdomen.
[2019-06-28 22:26] LABS: Glucose,Whole Blood 180 mg/dL (75-99)
[2019-06-28] MEDS: SODIUM CHLORIDE 0.9% 1,000 ML IV SCH (22:34)
[2019-06-28] MEDS: FLUTICASONE 50MCG/SPRAY NASAL 16GM EA NOSTRIL SCH (22:34)
[2019-06-28] MEDS: INSULIN ASPART (NovoLOG) 100 UNIT/ML VIAL SQ SCH (22:35)
[2019-06-28] MEDS: PANTOPRAZOLE 40 MG/10 ML VIAL IV SCH (22:36)
[2019-06-28] MEDS: SERTRALINE 100 MG TAB PO SCH (22:37)
[2019-06-28] MEDS: PREGABALIN 100 MG CAP PO SCH (22:37)
[2019-06-28] MEDS: MONTELUKAST 10 MG TAB PO SCH (22:37)
[2019-06-29] MEDS: HYDROmorphone 0.5 MG/0.5 ML SYRINGE IVP PRN ×2 (01:39→08:50)
[2019-06-29 06:10] LABS: Glucose,Whole Blood 154 mg/dL (75-99)
[2019-06-29 06:12] LABS: Basophils % (A) 0 %; Eosinophils # (A) 0.1 k/uL (0-0.7); Eosinophils % (A) 2 %; Lymphocytes % (A) 12 %; MCH 30.9 pg (25.0-35.0); MCHC 33.3 g/dL (31.0-37.0); MCV 92.8 fL (80.0-100.0); Mean Platelet Volume 9.5; Monocytes # (A) 0.6 k/uL (0-1.0); Monocytes % (A) 7 %; Neutrophils # (A) 6.2 k/uL (1.3-7.7); Neutrophils % (A) 76 %; Platelet Count 137 k/uL (150-450); RBC 2.59 m/uL (4.30-5.90); RDW 15.2 % (11.5-15.5); WBC 8.2 k/uL (3.8-10.6)
[2019-06-29] MEDS: INSULIN ASPART (NovoLOG) 100 UNIT/ML VIAL SQ SCH ×4 (07:06→22:13)
[2019-06-29] MEDS: IPRATROPIUM-ALBUTEROL 3 ML NEB INHALATION PRN (07:08)
[2019-06-29] MEDS: SYMBICORT 160-4.5 MCG INHALER INHALATION SCH ×2 (07:08→20:40)
[2019-06-29] MEDS: CLOBETASOL PROP 0.05% CR 15GM TOPICAL SCH (08:41)
[2019-06-29] MEDS: FLUTICASONE 50MCG/SPRAY NASAL 16GM EA NOSTRIL SCH ×2 (08:49→22:12)
[2019-06-29] MEDS: PREGABALIN 100 MG CAP PO SCH ×2 (08:49→22:11)
[2019-06-29] MEDS: SERTRALINE 100 MG TAB PO SCH (08:49)
[2019-06-29] MEDS: PANTOPRAZOLE 40 MG/10 ML VIAL IV SCH ×2 (08:49→22:12)
[2019-06-29] MEDS: SODIUM CHLORIDE 0.9% 1,000 ML IV SCH ×2 (08:50→22:15)
[2019-06-29] MEDS: TAMSULOSIN 0.4 MG CAP.ER.24H PO SCH (08:50)
[2019-06-29] MEDS: DILTIAZEM CD 120 MG CAP.ER.24H PO SCH (08:51)
[2019-06-29 11:02] LABS: HCT 23.3 % (39.0-53.0); HGB 7.8 gm/dL (13.0-17.5); MCH 31.2 pg (25.0-35.0); MCHC 33.3 g/dL (31.0-37.0); MCV 93.7 fL (80.0-100.0); Mean Platelet Volume 9.7; Platelet Count 127 k/uL (150-450); RBC 2.49 m/uL (4.30-5.90); RDW 15.5 % (11.5-15.5); WBC 8.2 k/uL (3.8-10.6)
[2019-06-29 11:36] LABS: Glucose,Whole Blood 135 mg/dL (75-99)
--- NOTE | 2019-06-29 11:37 | CONS ---
CONSULTATION DATE OF DICTATION: June 29, 2019. REQUESTING PHYSICIAN: Dr. Luh Louise REASON FOR CONSULTATION: Acute GI bleed. HISTORY OF PRESENT ILLNESS: The patient is a 64-year-old pleasant white male with history of atrial fibrillation on Eliquis, history of hypertension, congestive heart failure, and diabetes mellitus, admitted to the hospital after he started noticing maroon-colored stools that started on Sunday evening. He had about 3 of these episodes. He initially patient felt constipated. He took some Colace and subsequently had about 3 episodes of maroon- colored stools. Subsequently they turned more bright red. Yesterday had one episode, felt lightheaded and weak with some shortness of breath and hence came into the emergency room and subsequently admitted to the hospital for further evaluation. Initial hemoglobin was 9 and subsequently went down to 8 g/dL. Today he had another episode of maroon-colored stool. He denies any abdominal pain. No nausea, vomiting. Never had these symptoms in the past. He has history of atrial fibrillation and has been on Eliquis for 2 years now. No prior history of peptic ulcer disease. No recent NSAID use. He did have a colonoscopy by Dr. Bates on January of 2018 that showed mild diverticulosis with no evidence of colitis or colorectal neoplasia. PAST MEDICAL HISTORY: Significant for hypertension, hypercholesteremia, congestive heart failure, atrial flutter, atrial fibrillation on oral anticoagulation with Eliquis, obesity and diabetes mellitus, anxiety, depression, and peripheral neuropathy. MEDICATIONS: At home include: Lyrica, Zoloft, Singulair, Zantac, Zocor, Flomax, vitamin D3, Eliquis, , Lasix, calcium carbonate, metformin, DuoNeb, Flonase, and cardia. ALLERGIES: ASPIRIN, LOPID, AND VENTOLIN. REVIEW OF SYSTEMS: Cardiopulmonary, he does complain of some shortness of breath. Genitourinary: No dysuria or hematuria. Musculoskeletal unremarkable. Skin unremarkable. Endocrine unremarkable. Psychiatric unremarkable. Neurology unremarkable. ENT/vision unremarkable. CONSTITUTIONAL: No recent weight loss. No fever, chills, night sweats. PHYSICAL EXAMINATION: He appears comfortable. No apparent distress. Vital signs are stable. Blood pressure is 114/70, pulse rate 77, temperature 97.8. HEENT examination unremarkable. Conjunctivae pink. Sclerae anicteric. Oral cavity no lesions. Neck no JVD or lymph node enlargement. CHEST was clear to auscultation. HEART: Regular rate and rhythm. ABDOMEN: Soft, it was nontender, nondistended. It was obese. Bowel sounds are positive. No organomegaly. EXTREMITIES: No pedal edema. SKIN no rashes. NEUROLOGIC: Alert and oriented x3. No focal deficits. LABS: From yesterday WBC 13, hemoglobin 9.9, and platelets are normal. Today hemoglobin is down to 8. BUN is 42, creatinine 0.92. Stool occult blood was positive. IMPRESSION: 1. This is a patient who presents to the hospital with maroon-colored stools for the last 2 days duration. He has history of atrial fibrillation and has been on Eliquis for the last 1 and half years duration. Initial hemoglobin was 9.9 and today it is down to 8 g/dL. The patient has been having maroon-colored to bright red blood per rectum. His last colonoscopy by Dr. Bates was in January of 2018 that showed sigmoid diverticulosis. At this time, with elevated BUN it is likely we are dealing with an upper GI source of bleeding. The patient remains hemodynamically stable. 2. History of atrial fibrillation on Eliquis, which is currently on hold. His last dose was yesterday. 3. Diabetes mellitus. 4. Hypertension and hypercholesteremia. 5. History of congestive heart failure. RECOMMENDATIONS: 1. We will start him on IV Protonix 40 mg twice daily. 2. Start him on a clear liquid diet. 3. CBC every 12 hours and transfuse if the hemoglobin is less than 7. 4. Continue to hold Eliquis. 5. We will proceed with an upper endoscopy tomorrow. Discussed with the patient risks, benefits, and complications of the procedure. If the upper endoscopy is negative, we may consider repeating the colonoscopy during this hospitalization. The plan was discussed with the patient. He is agreeable to it. Thank you for this consultation. MMODL / IJN: [id number] /
[2019-06-29] MEDS ORDERED: SODIUM CHLORIDE 0.9% 500 ML 500 ML IV ONE (16:43)
[2019-06-29 16:50] LABS: Glucose,Whole Blood 135 mg/dL (75-99)
[2019-06-29 16:53] LABS: HCT 21.4 % (39.0-53.0); HGB 7.2 gm/dL (13.0-17.5); MCH 31.9 pg (25.0-35.0); MCHC 33.9 g/dL (31.0-37.0); MCV 94.1 fL (80.0-100.0); Mean Platelet Volume 9.8; Platelet Count 123 k/uL (150-450); RBC 2.27 m/uL (4.30-5.90); RDW 15.5 % (11.5-15.5); WBC 5.8 k/uL (3.8-10.6)
[2019-06-29] MEDS: LIDOCAINE 5% PATCH TOPICAL SCH (17:23)
--- NOTE | 2019-06-29 17:46 | P.HPIM ---
History of Present Illness H&P Date: 06/29/19 Chief Complaint: Bright red blood per rectum Mr. Shoemaker is a 64-year-old male with a past medical history of atrial fibrillation, COPD, diverticulitis, hypertension, hyperlipidemia, prostate disorder, pulmonary embolism, obstructive sleep apnea on BiPAP coming in with a chief complaint of bleeding bright red per rectum for the past 1 day. Patient states that he had 1 very large bowel movement that was bloody. After that episode patient felt lightheaded and weak when he was trying to get up and ambulate. Patient denies having any abdominal pain associated with breathing. He states that he had some discomfort in his belly. Patient has history of atrial fibrillation and PE and is on anticoagulation on Eliqus. Patient states that he has been on anti-cardiac ablation for the past 1-1/2-2 years. He never had any bleeding episodes prior to this month. Patient had blood work done showing hemoglobin of 9.9 and he is admitted for further management. Since being admitted patient had one more episode of large bloody bowel movement this morning after which his repeat hemoglobin is 7.2. Patient received 2 units of PRBCs since admission. On review of systems patient's denies having any fevers chills or rigors. No chest pain or palpitations. No dysuria or hematuria. Patient states when he had the bleeding episode she he felt lightheaded and dizzy. No syncopal episodes. No weakness of his extremities. No change in his speech. No headaches blurring of vision or loss of consciousness. Review of Systems REVIEW OF SYSTEMS: PSYCH: No anxiety or depression NEURO:No c/o weakness of the extremties, No facial droop, No speech abnormalities. VASCULAR: no edema HEMATOLOGIC: No history of easy bleeding and bruising . No recent infections . RESPIRATORY: No cough, No SOB, No chest discomfort. IMMUNE: No infections INTEGUMENT: no rashes OPHTHALMOLOGIC: No blurry vision and no eye discharge : No dysuria or hematuria CARDIAC: No chest pain , shortness of breath , paroxysmal nocturnal dyspnea MUSCULOSKELETAL : No Aches or pains in the joints or muscles. GI: As per HPI Past Medical History Past Medical History: Atrial Fibrillation, Atrial Flutter, Asthma, Heart Failure, COPD, Diabetes Mellitus, GERD/Reflux, Hyperlipidemia, Hypertension, Osteoarthritis (OA), Pneumonia, Prostate Disorder, Pulmonary Embolus (PE), Skin Disorder, Sleep Apnea/CPAP/BIPAP Additional Past Medical History / Comment(s): neuropathy bilateral feet, dermatitis, enlarged prostate, PE found in 07/2003 while hospitalized for pneumonia, spinal stenosis, degenerative scoliosis, arthritis in multiple joints, migraines, palpitations, uses cpap, "bleeds easily", hosp. in August w/influenza-can't seem to "shake" cough History of Any Multi-Drug Resistant Organisms: None Reported Past Surgical History: Bowel Resection, Heart Catheterization, Hernia Repair, Joint Replacement, Orthopedic Surgery, Tonsillectomy Additional Past Surgical History / Comment(s): Bilateral hip replacements, bilateral cataracts removed, hiatal hernia repair, incisional hernia repair with mesh-had bowel complication that resulted in a bowel resection , bronchoscopies., colonoscopy, ulna nerve rt elbow surgery, cardioversion 2018, [facility] Past Anesthesia/Blood Transfusion Reactions: Previous Problems w/ Anesthesia, Family History of Problems w/ Anesthesia Additional Past Anesthesia/Blood Transfusion Reaction / Comment(s): Problem with being "twilighted" - becomes very combative. Slow to wake up. Uncle has same symptoms with "twilight". Past Psychological History: Depression Smoking Status: Former smoker Past Alcohol Use History: None Reported Additional Past Alcohol Use History / Comment(s): Pt started smoking in 1968. He quit smoking in 1995 Past Drug Use History: None Reported - Past Family History Father Family Medical History: Cancer Additional Family Medical History / Comment(s): Father had prostrate cancer. Mother Family Medical History: Cancer Additional Family Medical History / Comment(s): Mother had skin cancer. Brother(s) Family Medical History: Cancer Additional Family Medical History / Comment(s): Brother of lung cancer. He is . Medications and Allergies Home Medications Medication Instructions Recorded Confirmed Type Pregabalin [Lyrica] 300 mg PO BID 08/18/17 06/28/19 History Sertraline [Zoloft] 100 mg PO DAILY 08/18/17 06/28/19 History Montelukast Sodium [Singulair] 10 mg PO HS 01/29/18 06/28/19 History Ranitidine HCl [Zantac] 150 mg PO BID 01/29/18 06/28/19 History Simvastatin [Zocor] 40 mg PO HS 01/29/18 06/28/19 History Budesonide/Formoterol Fumarate 2 puff INHALATION RT-BID 05/02/18 06/28/19 History [Symbicort 160-4.5 Mcg Inhaler] Tamsulosin HCl [Flomax] 0.4 mg PO QAM 05/02/18 06/28/19 History Apixaban [Eliquis] 5 mg PO BID #180 tab 05/04/18 06/28/19 Rx Calcium Carbonate [Calcium] 1,200 mg PO DAILY 07/11/18 06/28/19 History Furosemide [Lasix] 20 mg PO BID 07/11/18 06/28/19 History Potassium Chloride [K-Tab ER] 20 meq PO BID 07/11/18 06/28/19 History Albuterol Inhaler [Ventolin Hfa 2 puff INHALATION RT-QID PRN 09/02/18 06/28/19 History Inhaler] Betamethasone Dipropionate 1 applic TOPICAL DAILY 09/02/18 06/28/19 History [Diprolene AF 0.05% Cream] Cholecalciferol [Vitamin D3 (25 1,000 unit PO DAILY 06/28/19 06/28/19 History Mcg = 1000 Iu)] Clobetasol Propionate [Temovate 1 applic TOPICAL DAILY 06/28/19 06/28/19 History 0.05% Cream] Diltiazem HCl [Cartia Xt] 120 mg PO DAILY 06/28/19 06/28/19 History Fluticasone Nasal [place] [Flonase 2 spr EA NOSTRIL BID 06/28/19 06/28/19 History Nasal [place]] Ipratropium-Albuterol Nebulize 3 ml INHALATION RT-QID PRN 06/28/19 06/28/19 History [Duoneb 0.5 mg-3 mg/3 ml Soln] Saw [place] 500 mg PO QID 06/28/19 06/28/19 History metFORMIN HCL 1,000 mg PO BID 06/28/19 06/28/19 History Allergies Allergy/AdvReac Type Severity Reaction Status Date / Time gemfibrozil [From Lopid] Allergy Unknown Verified 06/28/19 19:10 aspirin AdvReac Abdominal Verified 06/28/19 19:10 Pain fentanyl AdvReac Hallucinati Verified 06/28/19 19:10 ons Physical Exam Vitals: Vital Signs Temp Pulse Pulse Resp BP BP BP 06/29/19 16:00 97.8 F 68 18 106/63 06/29/19 11:19 98.3 F 67 18 97/63 06/29/19 08:00 97.8 F 77 18 114/70 06/29/19 07:23 70 06/29/19 07:12 66 06/29/19 05:00 98.3 F 68 18 113/58 06/29/19 01:15 98.4 F 99 17 120/66 06/28/19 23:47 100 18 06/28/19 23:28 97.8 F 100 18 104/62 06/28/19 21:37 98.2 F 94 18 101/57 06/28/19 21:35 98.2 F 94 18 101/57 06/28/19 21:30 100 18 06/28/19 21:07 98.3 F 89 16 107/80 06/28/19 20:25 99.3 F 89 16 110/76 06/28/19 19:55 98.1 F 88 18 94/60 06/28/19 19:45 98.8 F 89 18 91/63 06/28/19 19:43 98.2 F 98 18 98/63 06/28/19 19:00 93 16 75/62 06/28/19 18:23 97 16 103/65 06/28/19 17:56 97 16 80/62 Pulse Ox 06/29/19 16:00 99 06/29/19 11:19 95 06/29/19 08:00 98 06/29/19 07:23 06/29/19 07:12 06/29/19 05:00 96 06/29/19 01:15 96 06/28/19 23:47 06/28/19 23:28 94 L 06/28/19 21:37 95 06/28/19 21:35 95 06/28/19 21:30 06/28/19 21:07 94 L 06/28/19 20:25 94 L 06/28/19 19:55 96 06/28/19 19:45 97 06/28/19 19:43 97 06/28/19 19:00 97 06/28/19 18:23 98 06/28/19 17:56 Intake and Output 06/29/19 06/29/19 06/29/19 06:59 14:59 22:59 Intake Total 360 Output Total 1400 200 300 Balance -1400 160 -300 Intake: Oral 360 Output: Urine 1400 200 300 Other: Voiding Method Urinal # Voids 1 # Bowel Movements 1 0 Weight 140 kg GEN. APPEARANCE: alert, in no apparent distress: Obese. HEAD EXAM: atraumatic, normocephalic, normal inspection EYE EXAM: normal appearance, PERRL, EOMI. mild pallor. No icterus. ENT EXAM: normal exam, mucous membranes moist NECK EXAM: normal inspection. Double chin. No thyromegaly. RESPIRATORY EXAM: normal lung sounds bilaterally. No wheezes or crackles. CARDIOVASCULAR EXAM: S1 and S2 heard. tachycardia. GI/ABDOMINAL EXAM: soft, normal bowel sounds. Ventral hernia. Absent: distended, tenderness, guarding, rebound, rigid EXTREMITIES EXAM: normal inspection, full ROM, normal capillary refill. No pedal edema. NEUROLOGICAL EXAM: alert, oriented X3, no focal neurological deficits. PSYCHIATRIC EXAM: normal affect, normal mood SKIN EXAM: warm, dry, intact, normal color. Absent: rash Results CBC & Chem 7: 06/29/19 16:23 06/28/19 17:07 Labs: Abnormal Lab Results - Last 24 Hours (Table) 06/28/19 06/28/19 06/28/19 Range/Units 17:07 17:07 17:19 WBC 13.0 H (3.8-10.6) k/uL RBC 3.11 L (4.30-5.90) m/uL Hgb 9.9 L (13.0-17.5) gm/dL Hct 29.1 L (39.0-53.0) % Plt Count (150-450) k/uL Neutrophils # 10.9 H (1.3-7.7) k/uL Lymphocytes # 0.9 L (1.0-4.8) k/uL Sodium 135 L (137-145) mmol/L BUN 42 H (9-20) mg/dL Glucose 161 H (74-99) mg/dL POC Glucose (mg/dL) (75-99) mg/dL Total Protein 5.2 L (6.3-8.2) g/dL Albumin 3.4 L (3.5-5.0) g/dL Crossmatch See Detail 06/28/19 06/29/19 06/29/19 Range/Units 22:24 05:35 06:09 WBC (3.8-10.6) k/uL RBC 2.59 L (4.30-5.90) m/uL Hgb 8.0 L D (13.0-17.5) gm/dL Hct 24.0 L (39.0-53.0) % Plt Count 137 L (150-450) k/uL Neutrophils # (1.3-7.7) k/uL Lymphocytes # (1.0-4.8) k/uL Sodium (137-145) mmol/L BUN (9-20) mg/dL Glucose (74-99) mg/dL POC Glucose (mg/dL) 180 H 154 H (75-99) mg/dL Total Protein (6.3-8.2) g/dL Albumin (3.5-5.0) g/dL Crossmatch 06/29/19 06/29/19 06/29/19 Range/Units 10:26 11:29 16:23 WBC (3.8-10.6) k/uL RBC 2.49 L 2.27 L (4.30-5.90) m/uL Hgb 7.8 L 7.2 L (13.0-17.5) gm/dL Hct 23.3 L 21.4 L (39.0-53.0) % Plt Count 127 L 123 L (150-450) k/uL Neutrophils # (1.3-7.7) k/uL Lymphocytes # (1.0-4.8) k/uL Sodium (137-145) mmol/L BUN (9-20) mg/dL Glucose (74-99) mg/dL POC Glucose (mg/dL) 135 H (75-99) mg/dL Total Protein (6.3-8.2) g/dL Albumin (3.5-5.0) g/dL Crossmatch 06/29/19 Range/Units 16:48 WBC (3.8-10.6) k/uL RBC (4.30-5.90) m/uL Hgb (13.0-17.5) gm/dL Hct (39.0-53.0) % Plt Count (150-450) k/uL Neutrophils # (1.3-7.7) k/uL Lymphocytes # (1.0-4.8) k/uL Sodium (137-145) mmol/L BUN (9-20) mg/dL Glucose (74-99) mg/dL POC Glucose (mg/dL) 135 H (75-99) mg/dL Total Protein (6.3-8.2) g/dL Albumin (3.5-5.0) g/dL Crossmatch Thrombosis Risk Factor Assmnt - Choose All That Apply Any of the Below Risk Factors Present?: Yes Each Factor Represents 1 point: Abnormal pulmonary function (COPD) Other Risk Factors: Yes Each Risk Factor Represents 2 Points: Age 61-74 years Other congenital or acquired thrombophilia - If yes, enter type in comment: No Thrombosis Risk Factor Assessment Total Risk Factor Score: 3 Thrombosis Risk Factor Assessment Level: Moderate Risk Assessment and Plan Assessment: ASSESSMENT Acute blood loss anemia due to GI bleed Atrial fibrillation on anticoagulation on hold due to GI bleed Hypertension Type 2 diabetes mellitus COPD not in acute exacerbation Hyperlipidemia History of pulmonary embolus Obstructive sleep apnea on BiPAP Bilateral lower extremity neuropathy Degenerative scoliosis Multiple joint arthritis Migraine headaches Bilateral hip replacements Ventral hernia PLAN: Patient is is 2 units of PRBCs since admission and his hemoglobin is at 7.2. We will give him 1 more unit of blood. GI Dr. Foster has evaluated the patient and is scheduled for an EGD tomorrow morning. We will monitor H&H every 8 hours. Anticoagulation on hold due to acute GI bleed. The new with the rest of his current medication regimen. Further recommendations to follow depending on the progress of the patient. Treatment plan was discussed in detail with the patient and family at bedside.
[2019-06-29 20:10] LABS: Glucose,Whole Blood 130 mg/dL (75-99)
[2019-06-29] MEDS: MONTELUKAST 10 MG TAB PO SCH (22:11)
[2019-06-30] MEDS: LIDOCAINE 5% PATCH TOPICAL SCH (05:10)
[2019-06-30] MEDS: SODIUM CHLORIDE 0.9% 1,000 ML IV SCH (05:15)
[2019-06-30 06:36] LABS: Glucose,Whole Blood 162 mg/dL (75-99)
[2019-06-30 06:40] LABS: Basophils % (A) 1 %; Eosinophils # (A) 0.2 k/uL (0-0.7); Eosinophils % (A) 4 %; HCT 23.1 % (39.0-53.0); HGB 7.6 gm/dL (13.0-17.5); Lymphocytes # (A) 0.9 k/uL (1.0-4.8); Lymphocytes % (A) 17 %; MCHC 32.9 g/dL (31.0-37.0); MCV 94.2 fL (80.0-100.0); Mean Platelet Volume 9.2; Monocytes # (A) 0.5 k/uL (0-1.0); Monocytes % (A) 9 %; Neutrophils # (A) 3.6 k/uL (1.3-7.7); Neutrophils % (A) 66 %; Platelet Count 131 k/uL (150-450); RBC 2.46 m/uL (4.30-5.90); RDW 15.7 % (11.5-15.5); WBC 5.4 k/uL (3.8-10.6)
[2019-06-30 06:57] LABS: African American GFR (CKD) >90 (>60 ml/min/1.73 sqM); Anion Gap 4 mmol/L; Blood Urea Nitrogen 18 mg/dL (9-20); Calcium 8.1 mg/dL (8.4-10.2); Carbon Dioxide 25 mmol/L (22-30); Chloride 108 mmol/L (98-107); Glucose 122 mg/dL (74-99); Non-African American GFR(CKD) >90 (>60 ml/min/1.73 sqM); Potassium 3.5 mmol/L (3.5-5.1); Sodium 137 mmol/L (137-145)
[2019-06-30] MEDS: IPRATROPIUM-ALBUTEROL 3 ML NEB INHALATION PRN (07:14)
[2019-06-30] MEDS: SYMBICORT 160-4.5 MCG INHALER INHALATION SCH ×2 (07:14→19:48)
[2019-06-30] MEDS: INSULIN ASPART (NovoLOG) 100 UNIT/ML VIAL SQ SCH ×4 (08:34→22:19)
[2019-06-30] MEDS: TAMSULOSIN 0.4 MG CAP.ER.24H PO SCH (08:36)
[2019-06-30] MEDS: PREGABALIN 100 MG CAP PO SCH ×2 (08:36→22:18)
[2019-06-30] MEDS: PANTOPRAZOLE 40 MG/10 ML VIAL IV SCH ×2 (08:36→22:18)
[2019-06-30] MEDS: CLOBETASOL PROP 0.05% CR 15GM TOPICAL SCH (08:36)
[2019-06-30] MEDS: DILTIAZEM CD 120 MG CAP.ER.24H PO SCH (08:36)
[2019-06-30] MEDS: SERTRALINE 100 MG TAB PO SCH (08:36)
[2019-06-30] MEDS: FLUTICASONE 50MCG/SPRAY NASAL 16GM EA NOSTRIL SCH ×2 (08:37→22:19)
[2019-06-30] MEDS ORDERED: LIDOCAINE 1% INJ 10MG/ML (20 ML MDV) ONE (12:51)
[2019-06-30] MEDS ORDERED: PROPOFOL 10 MG/ML 20 ML VIAL IV ONE (12:51)
[2019-06-30] MEDS ORDERED: MIDAZOLAM 2 MG/2 ML VIAL ONE (12:51)
[2019-06-30] MEDS ORDERED: IV FLUID CONTINUATION 1,000 ML IV ONE ×2 (13:06)
--- NOTE | 2019-06-30 13:23 | P.PCN ---
Date of Procedure: 06/30/19 Description of Procedure: BRIEF HISTORY: Patient is a 64-year-old male on anticoagulation therapy would presented to the hospital with concerns of a GI bleeding with maroon colored to bright red blood noted per rectum. Previously undergone colonoscopy in 2018 significant for sigmoid diverticulosis. He denies any NSAID use. PROCEDURE PERFORMED: Esophagogastroduodenoscopy with biopsy. PREOPERATIVE DIAGNOSIS: EGD with biopsy ESTIMATED BLOOD LOSS: Minimal. IV sedation per anesthesia. PROCEDURE: After informed consent was obtained, the patient was brought into the endoscopy unit. IV sedation was administered by Anesthesia under continuous monitoring. Initially the Olympus GIF-190 video endoscope was inserted into the mouth. Esophagus intubated without any difficulty. It was gradually advanced into the stomach and duodenum and carefully examined. The bulb and the second part of the duodenum appeared normal, With biopsies taken. The scope at this time was withdrawn to the stomach, adequately insufflated with air, and upon careful examination, mucosa of the antrum, body, cardia and the fundus appeared normal, Except for some mild scattered erythema in the antrum and body suggestive of bile gastritis biopsies taken. The scope was then withdrawn into the esophagus. The GE junction was located at 45 cm from the incisors. The esophagus appeared normal. There were no erosions or ulcerations seen and the patient tolerated the procedure well. IMPRESSION: 1. No active bleeding or old blood noted on upper endoscopy . 2. Mild gastritis antrum body, biopsied. 3. Duodenal biopsies. RECOMMENDATIONS: The findings of this examination were discussed with the patient and his daughter. Okay to resume liquid diet. Patient will be prepped for a colonoscopy tomorrow. Nothing by mouth after midnight. Continue to monitor hemoglobin and hematocrit and transfuse as needed. Continue to hold anticoagulation therapy.
--- NOTE | 2019-06-30 15:04 | P.PN ---
Subjective Progress Note Date: 06/30/19 Principal diagnosis: Mr. Shoemaker is a 64-year-old male with a past medical history of atrial fibrillation, COPD, diverticulitis, hypertension, hyperlipidemia, prostate disorder, pulmonary embolism, obstructive sleep apnea on BiPAP coming in with a chief complaint of bleeding bright red per rectum for the past 1 day. Patient states that he had 1 very large bowel movement that was bloody. After that episode patient felt lightheaded and weak when he was trying to get up and ambu late. Patient denies having any abdominal pain associated with breathing. He states that he had some discomfort in his belly. Patient has history of atrial fibrillation and PE and is on anticoagulation on Eliqus. Patient states that he has been on anti-cardiac ablation for the past 1-1/2-2 years. He never had any bleeding episodes prior to this month. Patient had blood work done showing hemo globin of 9.9 and he is admitted for further management. Since being admitted patient had one more episode of large bloody bowel movement this morning after which his repeat hemoglobin is 7.2. Patient received 2 units of PRBCs since admission. On review of systems patient's denies having any fevers chills or rigors. No chest pain or palpitations. No dysuria or hematuria. Patient states when he had the bleeding episode she he felt lightheaded and dizzy. No syncopal episodes. No weakness of his extremities. No change in his speech. No headaches blurring of vision or loss of consciousness. 06/30/2019 Patient is sitting up at the site of the bed and appears to be in no acute distress. He is awaiting to undergo an EGD this afternoon with GI. Patient reported having some mild chest discomfort that he stated was heaviness this morning upon getting up and then quickly subsided. EKG was done and was normal along with a negative troponin. Patient's hemoglobin today is 7.6 and reports to having a a bloody bowel movement last night. Currently patient denies any chest pain, shortness of breath, or palpitations. Patient is afebrile. Patient denies any nausea or vomiting and has been nothing by mouth since midnight for his EGD this morning. Objective - Vital Signs Vital signs: Vital Signs Temp 97.6 F 06/30/19 04:00 Pulse 97 06/30/19 08:50 Resp 20 06/30/19 08:50 BP 108/76 06/30/19 08:50 Pulse Ox 92 L 06/30/19 08:00 Intake & Output 06/29/19 06/30/19 06/30/19 18:59 06:59 18:59 Intake Total 1620 430 Output Total 1900 700 Balance -280 -270 Weight 141.1 kg Intake: IV 1140 Sodium Chloride 0.9% 1, 640 000 ml @ 80 mls/hr IV . [id number] [facility] Rx#:[id number] Sodium Chloride 0.9% 500 500 ml 500 ml @ 999 mls/hr IV .Q31M ONE Rx#:[id number] Oral 480 120 Blood Product 0 310 Rc As-1 Unit 0 310 [id number] Output: Urine 1900 700 Other: Voiding Method Urinal # Voids 1 # Bowel Movements 0 1 - Exam GEN. APPEARANCE: alert, in no apparent distress: Obese. HEAD EXAM: atraumatic, normocephalic, normal inspection EYE EXAM: normal appearance, PERRL, EOMI. mild pallor. No icterus. ENT EXAM: normal exam, mucous membranes moist NECK EXAM: normal inspection. Double chin. No thyromegaly. RESPIRATORY EXAM: normal lung sounds bilaterally. No wheezes or crackles. CARDIOVASCULAR EXAM: S1 and S2 heard. tachycardia. GI/ABDOMINAL EXAM: soft, obese, normal bowel sounds. Ventral hernia. Absent: distended, tenderness, guarding, rebound, rigid EXTREMITIES EXAM: normal inspection, full ROM, normal capillary refill. No pedal edema. NEUROLOGICAL EXAM: alert, oriented X3, no focal neurological deficits. PSYCHIATRIC EXAM: normal affect, normal mood SKIN EXAM: warm, dry, intact, normal color. Absent: rash - Labs CBC & Chem 7: 06/30/19 05:28 06/30/19 05:28 Labs: Abnormal Lab Results - Last 24 Hours (Table) 06/28/19 06/29/19 06/29/19 Range/Units 17:07 10:26 11:29 RBC 2.49 L (4.30-5.90) m/uL Hgb 7.8 L (13.0-17.5) gm/dL Hct 23.3 L (39.0-53.0) % RDW (11.5-15.5) % Plt Count 127 L (150-450) k/uL Lymphocytes # (1.0-4.8) k/uL Chloride (98-107) mmol/L Creatinine (0.66-1.25) mg/dL Glucose (74-99) mg/dL POC Glucose (mg/dL) 135 H (75-99) mg/dL Calcium (8.4-10.2) mg/dL Crossmatch See Detail 06/29/19 06/29/19 06/29/19 Range/Units 16:23 16:48 20:09 RBC 2.27 L (4.30-5.90) m/uL Hgb 7.2 L (13.0-17.5) gm/dL Hct 21.4 L (39.0-53.0) % RDW (11.5-15.5) % Plt Count 123 L (150-450) k/uL Lymphocytes # (1.0-4.8) k/uL Chloride (98-107) mmol/L Creatinine (0.66-1.25) mg/dL Glucose (74-99) mg/dL POC Glucose (mg/dL) 135 H 130 H (75-99) mg/dL Calcium (8.4-10.2) mg/dL Crossmatch 06/30/19 06/30/19 06/30/19 Range/Units 05:28 05:28 06:34 RBC 2.46 L (4.30-5.90) m/uL Hgb 7.6 L (13.0-17.5) gm/dL Hct 23.1 L (39.0-53.0) % RDW 15.7 H (11.5-15.5) % Plt Count 131 L (150-450) k/uL Lymphocytes # 0.9 L (1.0-4.8) k/uL Chloride 108 H (98-107) mmol/L Creatinine 0.64 L (0.66-1.25) mg/dL Glucose 122 H (74-99) mg/dL POC Glucose (mg/dL) 162 H (75-99) mg/dL Calcium 8.1 L (8.4-10.2) mg/dL Crossmatch Assessment and Plan Assessment: Acute blood loss anemia due to GI bleed Atrial fibrillation on anticoagulation on hold due to GI bleed Hypertension Type 2 diabetes mellitus COPD not in acute exacerbation Hyperlipidemia History of pulmonary embolus Obstructive sleep apnea on BiPAP Bilateral lower extremity neuropathy Degenerative scoliosis Multiple joint arthritis Migraine headaches Bilateral hip replacements Ventral hernia PLAN: Patient hemoglobin is at 7.6. Will continue to monitor vital signs and labs closely. Will repeat a.m. labs. Patient underwent an EGD this morning showing no active bleeding with gastritis and biopsies were done and are pending at this time. Patient is scheduled to start a prep for colonoscopy tomorrow. Anticoagulation on hold due to acute GI bleed. Continue with current medication regimen. Lasix was resumed as the patient states he feels swelling and edema. Further recommendations to follow depending on the progress of the patient.
[2019-06-30] MEDS ORDERED: FUROSEMIDE 20 MG TAB PO SCH (16:00)
[2019-06-30] MEDS: FUROSEMIDE 20 MG TAB PO SCH (16:22)
[2019-06-30] MEDS ORDERED: ARTIFICIAL TEARS-HYPROMELLOSE DROPS 15 ML BTL BOTH EYES PRN (16:24)
[2019-06-30] MEDS ORDERED: PEG 3350-NA SULF,BICARB,CL/KCL 4,000 ML BOTTLE PO ONE (17:00)
[2019-06-30 17:32] LABS: Glucose,Whole Blood 131 mg/dL (75-99)
[2019-06-30] MEDS ORDERED: BISACODYL 5 MG TABLET.DR PO ONE (18:00)
[2019-06-30 20:24] LABS: Glucose,Whole Blood 121 mg/dL (75-99)
[2019-06-30] MEDS: HYDROmorphone 0.5 MG/0.5 ML SYRINGE IVP PRN (22:17)
[2019-06-30] MEDS: MONTELUKAST 10 MG TAB PO SCH (22:18)
[2019-07-01 06:09] LABS: Glucose,Whole Blood 132 mg/dL (75-99)
[2019-07-01 06:20] LABS: Anisocytosis Slight; Basophils % (A) 0 %; Eosinophils # (A) 0.2 k/uL (0-0.7); Eosinophils % (A) 5 %; Lymphocytes # (A) 0.9 k/uL (1.0-4.8); Lymphocytes % (A) 20 %; MCH 31.2 pg (25.0-35.0); MCHC 32.8 g/dL (31.0-37.0); MCV 95.1 fL (80.0-100.0); Mean Platelet Volume 9.7; Monocytes # (A) 0.4 k/uL (0-1.0); Monocytes % (A) 9 %; Neutrophils # (A) 2.8 k/uL (1.3-7.7); Neutrophils % (A) 63 %; Platelet Count 122 k/uL (150-450); Poikilocytosis Slight; RBC 2.09 m/uL (4.30-5.90); RDW 16.6 % (11.5-15.5); WBC 4.4 k/uL (3.8-10.6)
[2019-07-01 06:31] LABS: African American GFR (CKD) >90 (>60 ml/min/1.73 sqM); Anion Gap 3 mmol/L; Blood Urea Nitrogen 12 mg/dL (9-20); Calcium 7.8 mg/dL (8.4-10.2); Carbon Dioxide 30 mmol/L (22-30); Chloride 107 mmol/L (98-107); Glucose 117 mg/dL (74-99); Non-African American GFR(CKD) >90 (>60 ml/min/1.73 sqM); Potassium 3.4 mmol/L (3.5-5.1); Sodium 140 mmol/L (137-145)
[2019-07-01 06:39] LABS: HCT 19.8 % (39.0-53.0); HGB 6.5 gm/dL (13.0-17.5)
[2019-07-01] MEDS: SYMBICORT 160-4.5 MCG INHALER INHALATION SCH ×2 (07:21→20:28)
[2019-07-01] MEDS: SODIUM CHLORIDE 0.9% 1,000 ML IV SCH ×2 (07:29→11:21)
[2019-07-01] MEDS: INSULIN ASPART (NovoLOG) 100 UNIT/ML VIAL SQ SCH ×4 (07:30→21:27)
[2019-07-01] MEDS: SERTRALINE 100 MG TAB PO SCH (07:40)
[2019-07-01] MEDS: PREGABALIN 100 MG CAP PO SCH ×2 (07:40→21:28)
[2019-07-01] MEDS: DILTIAZEM CD 120 MG CAP.ER.24H PO SCH (07:40)
[2019-07-01] MEDS: LIDOCAINE 5% PATCH TOPICAL SCH (07:40)
[2019-07-01] MEDS: FUROSEMIDE 20 MG TAB PO SCH ×2 (07:40→13:47)
[2019-07-01] MEDS: TAMSULOSIN 0.4 MG CAP.ER.24H PO SCH (07:40)
[2019-07-01] MEDS: FLUTICASONE 50MCG/SPRAY NASAL 16GM EA NOSTRIL SCH ×2 (07:41→21:28)
[2019-07-01] MEDS: PANTOPRAZOLE 40 MG/10 ML VIAL IV SCH ×2 (07:41→21:28)
[2019-07-01] MEDS: CLOBETASOL PROP 0.05% CR 15GM TOPICAL SCH (07:41)
[2019-07-01] MEDS ORDERED: POTASSIUM CHLORIDE ER 20 MEQ TAB.ER PO STA (09:23)
--- NOTE | 2019-07-01 11:43 | P.PN ---
Subjective Progress Note Date: 07/01/19 Principal diagnosis: Mr. Shoemaker is a 64-year-old male with a past medical history of atrial fibrillation, COPD, diverticulitis, hypertension, hyperlipidemia, prostate disorder, pulmonary embolism, obstructive sleep apnea on BiPAP coming in with a chief complaint of bleeding bright red per rectum for the past 1 day. Patient states that he had 1 very large bowel movement that was bloody. After that episode patient felt lightheaded and weak when he was trying to get up and ambu late. Patient denies having any abdominal pain associated with breathing. He states that he had some discomfort in his belly. Patient has history of atrial fibrillation and PE and is on anticoagulation on Eliqus. Patient states that he has been on anti-cardiac ablation for the past 1-1/2-2 years. He never had any bleeding episodes prior to this month. Patient had blood work done showing hemo globin of 9.9 and he is admitted for further management. Since being admitted patient had one more episode of large bloody bowel movement this morning after which his repeat hemoglobin is 7.2. Patient received 2 units of PRBCs since admission. On review of systems patient's denies having any fevers chills or rigors. No chest pain or palpitations. No dysuria or hematuria. Patient states when he had the bleeding episode she he felt lightheaded and dizzy. No syncopal episodes. No weakness of his extremities. No change in his speech. No headaches blurring of vision or loss of consciousness. 06/30/2019 Patient is sitting up at the site of the bed and appears to be in no acute distress. He is awaiting to undergo an EGD this afternoon with GI. Patient reported having some mild chest discomfort that he stated was heaviness this morning upon getting up and then quickly subsided. EKG was done and was normal along with a negative troponin. Patient's hemoglobin today is 7.6 and reports to having a a bloody bowel movement last night. Currently patient denies any chest pain, shortness of breath, or palpitations. Patient is afebrile. Patient denies any nausea or vomiting and has been nothing by mouth since midnight for his EGD this morning. 07/01/2019 Patient is sitting up in the chair and appears to be in no acute distress receiving one of 2 units of PRBCs today for hemoglobin of 6.5. Patient is to undergo a colonoscopy sometime this afternoon and is currently nothing by mouth. Patient states that he continued to notice blood in the stool when doing the bowel prep last night. Currently patient denies any chest pain, shortness of breath, or palpitations. Patient is afebrile. Patient denies any nausea or vomiting and is currently nothing by mouth as mentioned previously for colonoscopy. Objective - Vital Signs Vital signs: Vital Signs Temp 98.6 F 07/01/19 11:08 Pulse 71 07/01/19 11:08 Resp 18 07/01/19 11:08 BP 101/62 07/01/19 11:08 Pulse Ox 95 07/01/19 09:15 Intake & Output 06/30/19 07/01/19 07/01/19 18:59 06:59 18:59 Intake Total 200 310 Output Total 300 500 Balance -100 -500 310 Weight 146.2 kg Intake: IV 200 Blood Product 310 Rc Pheresis 2 As3 Unit 310 [id number] Output: Urine 300 500 Other: Voiding Method Urinal # Voids 1 1 0 - Exam GEN. APPEARANCE: alert, in no apparent distress: Obese. HEAD EXAM: atraumatic, normocephalic, normal inspection EYE EXAM: normal appearance, PERRL, EOMI. mild pallor. No icterus. ENT EXAM: normal exam, mucous membranes moist NECK EXAM: normal inspection. Double chin. No thyromegaly. RESPIRATORY EXAM: normal lung sounds bilaterally. No wheezes or crackles. CARDIOVASCULAR EXAM: S1 and S2 heard. tachycardia. GI/ABDOMINAL EXAM: soft, obese, normal bowel sounds. Ventral hernia. Absent: distended, tenderness, guarding, rebound, rigid EXTREMITIES EXAM: normal inspection, full ROM, normal capillary refill. No pedal edema. NEUROLOGICAL EXAM: alert, oriented X3, no focal neurological deficits. PSYCHIATRIC EXAM: normal affect, normal mood SKIN EXAM: warm, dry, intact, normal color. Absent: rash - Labs CBC & Chem 7: 07/01/19 05:43 07/01/19 05:43 Labs: Abnormal Lab Results - Last 24 Hours (Table) 06/28/19 06/30/19 06/30/19 Range/Units 17:07 17:27 20:22 RBC (4.30-5.90) m/uL Hgb (13.0-17.5) gm/dL Hct (39.0-53.0) % RDW (11.5-15.5) % Plt Count (150-450) k/uL Lymphocytes # (1.0-4.8) k/uL Potassium (3.5-5.1) mmol/L Glucose (74-99) mg/dL POC Glucose (mg/dL) 131 H 121 H (75-99) mg/dL Calcium (8.4-10.2) mg/dL Crossmatch See Detail 07/01/19 07/01/19 07/01/19 Range/Units 05:43 05:43 06:07 RBC 2.09 L (4.30-5.90) m/uL Hgb 6.5 L* (13.0-17.5) gm/dL Hct 19.8 L* (39.0-53.0) % RDW 16.6 H (11.5-15.5) % Plt Count 122 L (150-450) k/uL Lymphocytes # 0.9 L (1.0-4.8) k/uL Potassium 3.4 L (3.5-5.1) mmol/L Glucose 117 H (74-99) mg/dL POC Glucose (mg/dL) 132 H (75-99) mg/dL Calcium 7.8 L (8.4-10.2) mg/dL Crossmatch Assessment and Plan Assessment: Acute blood loss anemia due to GI bleed Atrial fibrillation on anticoagulation on hold due to GI bleed Hypertension Type 2 diabetes mellitus COPD not in acute exacerbation Hyperlipidemia History of pulmonary embolus Obstructive sleep apnea on BiPAP Bilateral lower extremity neuropathy Degenerative scoliosis Multiple joint arthritis Migraine headaches Bilateral hip replacements Ventral hernia PLAN: Patient hemoglobin is at 6.5 and currently receiving 1 of 2 units of PRBCs today. Will order H&H every 8 hours. Will continue to monitor vital signs and labs closely. Will repeat a.m. labs. Patient did the bowel prep and continue to notice blood in the stool last night and is scheduled for a colonoscopy this morning. Anticoagulation on hold due to acute GI bleed. Continue with current medication regimen. Lasix was resumed as the patient states he feels swelling and edema. Swelling and edema has improved. Further recommendations to follow depending on the progress of the patient.
[2019-07-01 11:50] LABS: Glucose,Whole Blood 143 mg/dL (75-99)
[2019-07-01] MEDS ORDERED: PROPOFOL 10 MG/ML 20 ML VIAL IV ONE (12:14)
[2019-07-01] MEDS ORDERED: LACTATED RINGERS 600 ML IV ONE ×2 (12:15)
--- NOTE | 2019-07-01 13:28 | P.PCN ---
Date of Procedure: 06/24/19 Description of Procedure: BRIEF HISTORY: Patient is a 64-year-old male on anticoagulation therapy would presented to the hospital with concerns of a GI bleeding with maroon colored to bright red blood noted per rectum. Previously undergone colonoscopy in 2018 significant for sigmoid diverticulosis. He denies any NSAID use. PROCEDURE PERFORMED: Colonoscopy. PREOPERATIVE DIAGNOSIS: GI bleed, anemia acute blood. ESTIMATED BLOOD LOSS: Minimal. IV sedation per Anesthesia. PROCEDURE: After informed consent was obtained, the patient, was brought into the endoscopy unit. IV sedation was administered by Anesthesia under continuous monitoring. Digital rectal examination was normal. Initially the Olympus CF-190 flexible video colonoscope was then inserted in the rectum, gradually advanced into the cecum without any difficulty. Careful examination was performed as the scope was gradually being withdrawn. Ileocecal valve and the appendiceal orifice were visualized and appeared normal. Prep was poor with a large amount of hemolyzed blood noted throughout the colon. Mucosa of the cecum, ascending colon, transverse colon, descending colon, sigmoid colon, and rectum which was visualized did appear normal with no active bleeding noted however there was a large amount of hemolyzed blood throughout the colon. Retroflexion was performed in the rectum and no lesions were seen. The patient tolerated the procedure well. IMPRESSION: Old, hemolyzed blood noted throughout the entire colon with no active bleeding noted. Mild left colonic diverticulosis. Poor prep. RECOMMENDATIONS: Findings of this examination were discussed with the patient and his daughter. Okay to resume full liquid diet. Continue to monitor hemoglobin and hematocrit and transfuse as needed. No anticoagulation therapy at this time. If further bleeding consider tagged red blood cell scan or CT angiography for further evaluation.
[2019-07-01 16:45] LABS: Glucose,Whole Blood 102 mg/dL (75-99)
[2019-07-01 19:39] LABS: Anisocytosis Slight; Basophils % (A) 0 %; Eosinophils # (A) 0.2 k/uL (0-0.7); Eosinophils % (A) 3 %; HCT 23.7 % (39.0-53.0); HGB 7.9 gm/dL (13.0-17.5); Lymphocytes # (A) 0.9 k/uL (1.0-4.8); Lymphocytes % (A) 13 %; MCHC 33.3 g/dL (31.0-37.0); MCV 93.1 fL (80.0-100.0); Mean Platelet Volume 9.2; Monocytes # (A) 0.5 k/uL (0-1.0); Monocytes % (A) 7 %; Neutrophils # (A) 4.9 k/uL (1.3-7.7); Neutrophils % (A) 75 %; Platelet Count 150 k/uL (150-450); Poikilocytosis Slight; RBC 2.54 m/uL (4.30-5.90); WBC 6.6 k/uL (3.8-10.6)
[2019-07-01 20:28] LABS: Glucose,Whole Blood 116 mg/dL (75-99)
[2019-07-01] MEDS: MONTELUKAST 10 MG TAB PO SCH (21:28)
[2019-07-01 21:40] VITALS: RESP 18
[2019-07-01] MEDS: HYDROmorphone 0.5 MG/0.5 ML SYRINGE IVP PRN (22:47)
[2019-07-02 00:15] LABS: Anisocytosis Slight; HCT 21.9 % (39.0-53.0); HGB 7.6 gm/dL (13.0-17.5); MCH 31.8 pg (25.0-35.0); MCHC 34.5 g/dL (31.0-37.0); MCV 92.3 fL (80.0-100.0); Mean Platelet Volume 9.1; Platelet Count 144 k/uL (150-450); Poikilocytosis Slight; RBC 2.37 m/uL (4.30-5.90); RDW 17.1 % (11.5-15.5)
[2019-07-02 01:07] LABS: Band Neutrophils % 2 %; Basophils # (M) 0.06 k/uL (0-0.2); Eosinophils # (M) 0.17 k/uL (0-0.7); Lymphocytes # (M) 0.99 k/uL (1.0-4.8); Monocytes # (M) 0.39 k/uL (0-1.0); Neutrophils % (M) 70 %; Nucleated Red Blood Cells 1 /100 WBC (0-0); Total Cells Counted 200; WBC 5.5 k/uL (3.8-10.6)
[2019-07-02 01:08] LABS: Polychromasia Present
[2019-07-02] MEDS: SODIUM CHLORIDE 0.9% 1,000 ML IV SCH ×2 (05:38→12:18)
[2019-07-02] MEDS ORDERED: ACETAMINOPHEN TAB 325 MG TAB PO PRN (05:46)
[2019-07-02 05:54] LABS: Glucose,Whole Blood 140 mg/dL (75-99)
[2019-07-02 06:30] LABS: Anisocytosis Slight; Basophils % (A) 1 %; Eosinophils # (A) 0.2 k/uL (0-0.7); Eosinophils % (A) 5 %; HCT 23.3 % (39.0-53.0); HGB 7.8 gm/dL (13.0-17.5); Lymphocytes # (A) 1.1 k/uL (1.0-4.8); Lymphocytes % (A) 23 %; MCH 31.2 pg (25.0-35.0); MCHC 33.6 g/dL (31.0-37.0); MCV 92.9 fL (80.0-100.0); Mean Platelet Volume 10.3; Monocytes # (A) 0.4 k/uL (0-1.0); Monocytes % (A) 8 %; Neutrophils % (A) 61 %; Platelet Count 164 k/uL (150-450); Poikilocytosis Slight; RDW 17.4 % (11.5-15.5)
[2019-07-02] MEDS: INSULIN ASPART (NovoLOG) 100 UNIT/ML VIAL SQ SCH ×2 (06:38→12:18)
[2019-07-02 07:13] LABS: Polychromasia Present
[2019-07-02 07:14] LABS: Target Cells Present
[2019-07-02] MEDS: SYMBICORT 160-4.5 MCG INHALER INHALATION SCH (07:31)
[2019-07-02] MEDS: IPRATROPIUM-ALBUTEROL 3 ML NEB INHALATION PRN (07:32)
[2019-07-02] MEDS: PANTOPRAZOLE 40 MG/10 ML VIAL IV SCH (08:26)
[2019-07-02] MEDS: SERTRALINE 100 MG TAB PO SCH (08:27)
[2019-07-02] MEDS: FUROSEMIDE 20 MG TAB PO SCH (08:27)
[2019-07-02] MEDS: PREGABALIN 100 MG CAP PO SCH (08:27)
[2019-07-02] MEDS: DILTIAZEM CD 120 MG CAP.ER.24H PO SCH (08:27)
[2019-07-02] MEDS: TAMSULOSIN 0.4 MG CAP.ER.24H PO SCH (08:27)
[2019-07-02] MEDS: CLOBETASOL PROP 0.05% CR 15GM TOPICAL SCH (08:28)
[2019-07-02] MEDS: LIDOCAINE 5% PATCH TOPICAL SCH (08:28)
[2019-07-02 11:46] LABS: Glucose,Whole Blood 121 mg/dL (75-99)
[2019-07-02 11:57] VITALS: BP 98/57; PULSE 66; TEMP 98.4
[2019-07-02] MEDS: FLUTICASONE 50MCG/SPRAY NASAL 16GM EA NOSTRIL SCH (12:17)
--- NOTE | 2019-07-02 12:59 | P.DS ---
Providers Date of admission: 06/28/19 20:22 Expected date of discharge: 07/02/19 Attending physician: Violeta Mcnamara Consults: 06/28/19 20:18 Consult Physician Routine Consulting Provider: Shanell Foster Consult Reason/Comments: Upper GI bleed Do you want consulting provider notified?: Yes Primary care physician: Luh Louise [facility] Course: Final diagnosis Acute blood loss anemia due to GI bleed Atrial fibrillation Hypertension Type 2 diabetes mellitus COPD not in acute exacerbation Hyperlipidemia History of pulmonary embolus Obstructive sleep apnea on BiPAP Bilateral lower extremity neuropathy Degenerative scoliosis Multiple joint arthritis Migraine headaches Bilateral hip replacements Ventral hernia Discharge disposition Patient is being discharged in a stable condition with guarded prognosis to home and will follow-up with primary care provider Dr. Louise upon discharge. Patient will also follow-up with Dr. Jacquelyn YOUSIF in the outpatient setting in 3-4 weeks. Patient may resume anticoagulation tomorrow on 07/03/2019. Total time taken is 35 minutes. History of present illness This is a 64-year-old male who was recently admitted for bleeding bright red blood per rectum and was being closely monitored. GI was following. Patient underwent an EGD which showed mild gastritis and no active bleeding. Patient continued to have bloody bowel movements and was prepped for colonoscopy showing mild left colonic diverticulosis with old blood throughout the colon and no active bleeding noted. During hospitalization patient required 4 total units of PRBCs for low hemoglobin. Today's hemoglobin is 7.8 with no reports of any blood noticed in the stool this morning. Patient will need repeat labs in 2-3 days to monitor hemoglobin. Patient was taking Eliquis for anticoagulation and may resume this tomorrow per GI recommendations. Currently patient's condition is stable and will be discharged to home today. Currently patient denies any chest pain, shortness of breath, or palpitations. Patient has been afebrile. Patient denies any nausea or vomiting and is eating. Discussed with the patient about continuing to advance diet slowly as tolerated. Patient will follow-up with GI in 3-4 weeks. On exam vital signs are stable. Temp is 98.4F, pulse is 66, respirations are 16, blood pressure is 98/57, oxygen saturation is 93% on room air. Cardio S1, S2 are muffled. Respiratory system shows diminished breath sounds at the bases otherwise clear to auscultation. Abdomen is soft, obese, nontender. Nervous system shows no focal deficits. Please refer to medication reconciliation sheet for a list of medications. Patient Condition at Discharge: Fair Plan - Discharge Summary Discharge Rx Participant: No New Discharge Prescriptions: Continue Sertraline [Zoloft] 100 mg PO DAILY Pregabalin [Lyrica] 300 mg PO BID Simvastatin [Zocor] 40 mg PO HS Ranitidine HCl [Zantac] 150 mg PO BID Montelukast Sodium [Singulair] 10 mg PO HS Budesonide/Formoterol Fumarate [Symbicort 160-4.5 Mcg Inhaler] 2 puff INHALATION RT-BID Tamsulosin HCl [Flomax] 0.4 mg PO QAM Potassium Chloride [K-Tab ER] 20 meq PO BID Calcium Carbonate [Calcium] 1,200 mg PO DAILY Furosemide [Lasix] 20 mg PO BID Albuterol Inhaler [Ventolin Hfa Inhaler] 2 puff INHALATION RT-QID PRN PRN Reason: Shortness Of Breath Betamethasone Dipropionate [Diprolene AF 0.05% Cream] 1 applic TOPICAL DAILY Cholecalciferol [Vitamin D3 (25 Mcg = 1000 Iu)] 1,000 unit PO DAILY Fluticasone Nasal [place] [Flonase Nasal [place]] 2 spr EA NOSTRIL BID Ipratropium-Albuterol Nebulize [Duoneb 0.5 mg-3 mg/3 ml Soln] 3 ml INHALATION RT-QID PRN PRN Reason: Shortness Of Breath Diltiazem HCl [Cartia Xt] 120 mg PO DAILY metFORMIN HCL 1,000 mg PO BID Clobetasol Propionate [Temovate 0.05% Cream] 1 applic TOPICAL DAILY Ipratropium [place] 0.06%Nasal [Atrovent Nasal 0.06%] 2 spray EA NOSTRIL TID Simvastatin [Zocor] 10 mg PO HS Apixaban [Eliquis] 5 mg PO BID #180 tab Discontinued Saw [place] 500 mg PO QID Discharge Medication List Pregabalin [Lyrica] 300 mg PO BID 08/18/17 [History] Sertraline [Zoloft] 100 mg PO DAILY 08/18/17 [History] Montelukast Sodium [Singulair] 10 mg PO HS 01/29/18 [History] Ranitidine HCl [Zantac] 150 mg PO BID 01/29/18 [History] Simvastatin [Zocor] 40 mg PO HS 01/29/18 [History] Budesonide/Formoterol Fumarate [Symbicort 160-4.5 Mcg Inhaler] 2 puff INHALATION RT-BID 05/02/18 [History] Tamsulosin HCl [Flomax] 0.4 mg PO QAM 05/02/18 [History] Calcium Carbonate [Calcium] 1,200 mg PO DAILY 07/11/18 [History] Furosemide [Lasix] 20 mg PO BID 07/11/18 [History] Potassium Chloride [K-Tab ER] 20 meq PO BID 07/11/18 [History] Albuterol Inhaler [Ventolin Hfa Inhaler] 2 puff INHALATION RT-QID PRN 09/02/18 [History] Betamethasone Dipropionate [Diprolene AF 0.05% Cream] 1 applic TOPICAL DAILY 09/02/18 [History] Cholecalciferol [Vitamin D3 (25 Mcg = 1000 Iu)] 1,000 unit PO DAILY 06/28/19 [History] Clobetasol Propionate [Temovate 0.05% Cream] 1 applic TOPICAL DAILY 06/28/19 [History] Diltiazem HCl [Cartia Xt] 120 mg PO DAILY 06/28/19 [History] Fluticasone Nasal [place] [Flonase Nasal [place]] 2 spr EA NOSTRIL BID 06/28/19 [History] Ipratropium-Albuterol Nebulize [Duoneb 0.5 mg-3 mg/3 ml Soln] 3 ml INHALATION RT-QID PRN 06/28/19 [History] metFORMIN HCL 1,000 mg PO BID 06/28/19 [History] Ipratropium [place] 0.06%Nasal [Atrovent Nasal 0.06%] 2 spray EA NOSTRIL TID 06/30/19 [History] Simvastatin [Zocor] 10 mg PO HS 06/30/19 [History] Apixaban [Eliquis] 5 mg PO BID #180 tab 07/02/19 [Rx] Follow up Appointment(s)/Referral(s): Luh Louise MD [Primary Care Provider] - 1-2 days David Valladares MD [STAFF PHYSICIAN] - 3 Weeks Ambulatory/Diagnostic Orders: Complete Blood Count w/diff [LAB.AMB] Time Frame: 2 Days, Location: None Selected Activity/Diet/Wound Care/Special Instructions: Activity Limited until follow-up Follow up with primary care provider upon discharge Repeat labs in 2-3 days Hold Mian villaltataryn 07/02/2019 and may resume tomorrow with normal medications Continue current diet and advance slowly as tolerated Follow-up with GI in 3-4 weeks. Discharge Disposition: HOME SELF-CARE
--- NOTE | 2019-07-09 12:46 | CDI ---
Documentation Clarification Form Date: 07/09/19 From: Stacie Park CCS Phone: If you have a question about this query, please contact Carli Starr, Manager Trade Marketing at [phone] between 8am and 5pm. Admit Date: 06/28/19 Discharge Date: 07/02/19 Patient Name: Jaquan Shoemaker Visit Number: [id number] ATTENTION: The Clinical Documentation Specialists (CDI) and [facility] Coding Staff appreciate your assistance in clarifying documentation. Please respond to the clarification below the line at the bottom and electronically sign. The CDI & [facility] Coding staff will review the response and follow-up if needed. Please note: Queries are made part of the Legal Health Record. If you have any questions, please contact the author of this message via ITS. Dear Dr. Grossman, CHF is documented in the ED, H&P, Consult. History/Risk Factors: HTN, AFIB, DM, JOSE C, COPD Treatment: Lasix 20 mg PO BID, Lasix 30 mg PO BID In your professional opinion, can you please clarify the acuity and type of CHF if known? Systolic Heart Failure: Acute Chronic Acute on Chronic Diastolic Heart Failure: Acute Chronic Acute on Chronic Systolic & Diastolic Heart Failure: Acute Chronic Acute on Chronic Heart Failure Unable to Determine Other, please specify My opinion as per my note is not dictated in my note and I do not believe patient has heart failure MTDD
--- NOTE | 2019-07-09 12:55 | CDI ---
Documentation Clarification Form Date: 07/09/19 From: Stacie Park CCS Phone: If you have a question about this query, please contact Carli Starr, Six Sigma Black Belt Engineer at [phone] between 8am and 5pm. Admit Date: 06/28/19 Discharge Date: 07/02/19 Patient Name: Jaquan Shoemaker Visit Number: [id number] ATTENTION: The Clinical Documentation Specialists (CDI) and [facility] Coding Staff appreciate your assistance in clarifying documentation. Please respond to the clarification below the line at the bottom and electronically sign. The CDI & [facility] Coding staff will review the response and follow-up if needed. Please note: Queries are made part of the Legal Health Record. If you have any questions, please contact the author of this message via ITS. Dear Dr. Grossman, Atrial Fibrillation is documented in the ED, PNs, H&P, DS. History/Risk Factors: HTN, DM, COPD, CHF, JOSE C, Obesity Treatment: Eliquis 5mg PO BID- On hold due to GI bleed In your professional opinion, can you please clarify the type of Atrial Fibrillation, if known? Chronic/Permanent Paroxysmal Persistent Other, please specify Unable to determine Unable to determine MTDD
== END 2019-07-02 14:20 | disposition home or self-care (01) | DRG 378 ==
LOC: EC 16:48 → 3SCARD 20:22
PROVIDERS: ADMIT Hospitalist; ATTEND Hospitalist
PROC: 30233N1 Transfusion of Nonautologous Red Blood Cells into Peripheral Vein, Percutaneous Approach (ICD-10-PCS; 2019-06-28)
PROC: 5A09457 Assistance with Respiratory Ventilation, 24-96 Consecutive Hours, Continuous Positive Airway Pressure (ICD-10-PCS; 2019-06-29)
PROC: 0DB98ZX Excision of Duodenum, Via Natural or Artificial Opening Endoscopic, Diagnostic (ICD-10-PCS; 2019-06-30)
PROC: 0DB78ZX Excision of Stomach, Pylorus, Via Natural or Artificial Opening Endoscopic, Diagnostic (ICD-10-PCS; 2019-06-30)
PROC: 0DJD8ZZ Inspection of Lower Intestinal Tract, Via Natural or Artificial Opening Endoscopic (ICD-10-PCS; principal; 2019-07-01 10:50)
DX: K57.31 Diverticulosis of large intestine without perforation or abscess with bleeding (principal); D62 Acute posthemorrhagic anemia; I48.92 Unspecified atrial flutter; M41.50 Other secondary scoliosis, site unspecified; E11.42 Type 2 diabetes mellitus with diabetic polyneuropathy; I95.9 Hypotension, unspecified; K29.71 Gastritis, unspecified, with bleeding; G47.33 Obstructive sleep apnea (adult) (pediatric); I48.91 Unspecified atrial fibrillation; J44.9 Chronic obstructive pulmonary disease, unspecified; E78.5 Hyperlipidemia, unspecified; G43.909 Migraine, unspecified, not intractable, without status migrainosus; K43.9 Ventral hernia without obstruction or gangrene; K21.9 Gastro-esophageal reflux disease without esophagitis; F32.9 Major depressive disorder, single episode, unspecified; M15.9 Polyosteoarthritis, unspecified; F41.9 Anxiety disorder, unspecified; R94.4 Abnormal results of kidney function studies; E66.9 Obesity, unspecified; N40.0 Benign prostatic hyperplasia without lower urinary tract symptoms; I10 Essential (primary) hypertension; Z68.39 Body mass index [BMI] 39.0-39.9, adult; Z79.01 Long term (current) use of anticoagulants; Z79.899 Other long term (current) drug therapy; Z79.51 Long term (current) use of inhaled steroids; Z79.84 Long term (current) use of oral hypoglycemic drugs; Z87.01 Personal history of pneumonia (recurrent); Z87.2 Personal history of diseases of the skin and subcutaneous tissue; Z96.643 Presence of artificial hip joint, bilateral; Z86.711 Personal history of pulmonary embolism; Z86.19 Personal history of other infectious and parasitic diseases; Z98.42 Cataract extraction status, left eye; Z98.41 Cataract extraction status, right eye; Z98.890 Other specified postprocedural states; Z90.49 Acquired absence of other specified parts of digestive tract; Z87.891 Personal history of nicotine dependence; Z88.8 Allergy status to other drugs, medicaments and biological substances; Z88.6 Allergy status to analgesic agent; Z88.5 Allergy status to narcotic agent; Z80.1 Family history of malignant neoplasm of trachea, bronchus and lung; Z80.42 Family history of malignant neoplasm of prostate; Z80.8 Family history of malignant neoplasm of other organs or systems
CPT/HCPCS: 36415; 36430; 43239; 45378; 74018; 80048; 80053; 82272; 82550; 83735; 84484; 85025; 85027; 85730; 86850; 86880; 86900; 86901; 86920; 88305; 94640; 96361; 96374; 96375; 99285

== ENCOUNTER → 2020-06-14 | Outpatient (CLI) | payer MEDICARE | END | disposition home or self-care (01) | LOC: LABWHC1 12:35 | PROVIDERS: ATTEND Family Medicine | DX: U07.1 COVID-19 (principal) | CPT/HCPCS: U0003; C9803 ==

== ENCOUNTER → 2020-08-31 | Outpatient (CLI) | payer MEDICARE ==
--- NOTE | 2020-08-31 17:19 | PN ---
PROGRESS NOTE This is a 65-year-old male patient with known history of asthma, congestive heart failure and obstructive sleep apnea. The patient has severe JOSE C with an AHI of 110 and continues to be on a CPAP pressure of 16 cm of water. He also has history of paroxysmal atrial fibrillation. He has been followed up by Dr. Srivastava and Dr. Kilgore, and he sees me regarding his obstructive sleep apnea. His JOSE C is very well treated. I checked his CPAP machine, and he is currently on a pressure of 16 cm of water. Based on this 30-day compliancy, the patient had an average of 7.8 hours of CPAP use per night, and his CPAP use for more than 4 hours is 100% with a leak of 5 L/minute and his AHI is down to 0.8. He is using an Zully View full-face mask. No nighttime difficulty with CPAP therapy as long as he is wearing his CPAP. Without the CPAP, he would get winded and short of breath. He has no palpitation. No angina. He maintains long-term anticoagulation with Eliquis 5 mg p.o. twice a day. He has cough and congestion and he is currently on a combination of breathing medications, including Symbicort, Ventolin and albuterol nebulized treatments around the clock as needed. No recent weight gain or weight loss. [place] score is down to 2. His current body weight is 322 with a BMI of 43.6 and an [place] score of 2. REVIEW OF SYSTEMS: Fourteen-point review of systems was done. Positive findings are all mentioned above in the history of present illness. No recent weight gain or weight loss. He is having issues with exertional dyspnea. No angina. No palpitations. No swelling in the lower extremities. No hypersomnia or sleepiness during the day. PHYSICAL EXAMINATION: VITAL SIGNS: BP is 128/89, pulse 78, respirations 20, temperature 98.5, saturation 93% on room air. BMI is 43.6. [place] score is 2. Height is 6 feet 0 inches. Weight is 322. GENERAL APPEARANCE: Calm, comfortable. HEAD: Atraumatic, normocephalic. NECK: Supple. No JVD. No goiter or neck masses. LUNGS: Diminished; otherwise clear. HEART: Heart sounds are irregular. Positive S1, S2. No S3, S4. No murmurs. ABDOMEN: Soft, nontender. No organomegaly. EXTREMITIES: No edema. No cyanosis or clubbing. NEUROLOGIC: Awake and alert. There is no focal neurological deficit. IMPRESSION: 1. Severe obstructive sleep apnea, AHI of 110, currently on CPAP at a pressure of 16. Treatment is successful. 2. Hypersomnia, without any active issues for now. [place] score is down to 2. 3. Paroxysmal atrial fibrillation, currently on long-term anticoagulation with Eliquis, and the patient is also on Cardizem/Cartia. 4. Congestive heart failure. 5. Benign prostatic hypertrophy. 6. Hypertension. 7. Hyperlipidemia. 8. Asthma. 9. Diabetes mellitus. 10.Acid reflux. PLAN: 1. No need for adjustments. Keep CPAP pressure at 16. 2. Continue using an AmaraView full-face mask. 3. Encourage weight loss. Weight has been stable at 233. 4. Refill and renew his supplies. 5. See me back in the pulmonary clinic regarding his sleep apnea and any other pulmonary issues, should they arise. MMODL / IJN: [id number] /
== END | disposition home or self-care (01) ==
LOC: SLEEP 16:08
PROVIDERS: ATTEND Internal Medicine Critical Care Medicine
DX: G47.33 Obstructive sleep apnea (adult) (pediatric) (principal); I11.0 Hypertensive heart disease with heart failure; I50.9 Heart failure, unspecified; N40.0 Benign prostatic hyperplasia without lower urinary tract symptoms; I10 Essential (primary) hypertension; E78.5 Hyperlipidemia, unspecified; J45.909 Unspecified asthma, uncomplicated; E11.9 Type 2 diabetes mellitus without complications; K21.9 Gastro-esophageal reflux disease without esophagitis; I48.0 Paroxysmal atrial fibrillation; Z99.89 Dependence on other enabling machines and devices; Z79.01 Long term (current) use of anticoagulants

== ENCOUNTER → 2020-12-28 | Day surgery (SDC) | payer MEDICARE ==
[2020-12-24 15:42] VITALS: BMI 39.4
[~2020-12-28] MED LIST changes: +ALPRAZolam 0.25 MG TAB PO PRN; +ALPRAZolam 0.5 MG TAB PO PRN; +ASPIRIN 325 MG TAB PO STA; +ATORVASTATIN 80 MG TAB PO STA; -ATROPINE SULFATE 0.4 MG/ML 1 ML VIAL IM ONE; -GLYCOPYRROLATE 0.2 MG/ML 2 ML VIAL ONE; +HEPARIN SODIUM 1,000 UN/ML (10ML VL) ONE; +HEPARIN SODIUM,PORCINE 10,000 UNIT in SODIUM CHLORIDE 0.9% 1,000 ML IRRIGATION PRN; +HEPARIN SODIUM,PORCINE 2,500 UNIT in SODIUM CHLORIDE 0.9% 250 ML IRRIGATION PRN; +IOPAMIDOL-370 125ML BTL INJ ONE; -KETAMINE 10 MG/ML 20 ML VIAL ONE; -LACTATED RINGERS 1,000 ML IV SCH; +LIDOCAINE 1% INJ 10MG/ML (20 ML MDV) ONE; +LIDOCAINE 1% INJ 10MG/ML (20 ML MDV) SQ ONE; -LIDOCAINE 2% (PF) 20 MG/ML 5 ML VIAL INHALATION ONE; -LIDOCAINE 2% INJ 20 MG/ML INTRATRACH ONE; -LIDOCAINE VISCOUS 300 MG/15 ML CUP MUCOUS MEM ONE; +MIDAZOLAM 2 MG/2 ML VIAL IV ONE; -MIDAZOLAM 2 MG/2 ML VIAL ONE; +NITROGLYCERIN SL TABS 0.4 MG TAB SUBLINGUAL PRN; -PROPOFOL 10 MG/ML 20 ML VIAL IV ONE; +RX INFO: IV CONTRAST WAS GIVEN 1 EACH MISC MISCELLANE PRN; +SODIUM CHLORIDE 0.9% 1,000 ML in EMPTY BAG 1 BAG IV ONE; +VERAPAMIL 2.5 MG/ML 2 ML AMP ONE; +VERAPAMIL SYRINGE (5 MG/10 ML) INTRAARTER ONE; +fentaNYL (PF) 50 MCG/ML 2 ML AMP IV ONE; +fentaNYL (PF) 50 MCG/ML 2 ML AMP ONE
[2020-12-28 07:29] LABS: Glucose,Whole Blood 122 mg/dL (75-99)
[2020-12-28 07:42] VITALS: TEMP 98.2
[2020-12-28] MEDS: BENZOCAINE SPRAY 1 CAN MUCOUS MEM ONE ×2 (08:43→08:54)
[2020-12-28] MEDS: MIDAZOLAM 2 MG/2 ML VIAL IV ONE ×3 (08:56→09:46)
[2020-12-28 10:10] LABS: O2 Sat Blood Gas 72.6 %
[2020-12-28 10:12] LABS: O2 Sat Blood Gas 77.1 %
[2020-12-28 10:15] LABS: O2 Sat Blood Gas 70.8 %
[2020-12-28 10:17] LABS: O2 Sat Blood Gas 95.2 %
[2020-12-28 10:19] LABS: O2 Sat Blood Gas 90.7 %
[2020-12-28 10:22] LABS: O2 Sat Blood Gas 74.7 %
--- NOTE | 2020-12-28 11:00 | ECHOT ---
TRANSESOPHAGEAL ECHOCARDIOGRAM DATE OF SERVICE: December 28, 2020 PERFORMING PHYSICIAN: Wm Kilgore MD. PROCEDURE PERFORMED: Transesophageal echocardiogram. INDICATION: Bicuspid aortic valve with aortic stenosis. COMPLICATION: None. LEVEL OF SEDATION: Moderate with a sedation length of 15 minutes. PROCEDURE DESCRIPTION: After obtaining an informed consent, the patient was brought to the transesophageal echocardiogram suite. A pulse oximetry and heart rate monitors were attached to the patient. Subsequently, the transesophageal echocardiogram probe was advanced through the bite guard to the mid esophageal where 2D echocardiogram images, as well as color Doppler images of various cardiac structures were obtained. We did the ARNOL using 2D echocardiogram, as well as color Doppler, as well as pulse Doppler, as well as continuous-wave Doppler. The procedure was completed without any complication. FINDINGS: The left ventricular dimension and systolic function appeared to be within normal limits. The ejection fraction appeared to be in the range of 50% to 55%. The right ventricle appeared to be of normal size and function. The left atrium appeared to be dilated. The right atrium appeared to be also dilated. The left atrial appendage appeared to be intact. The interatrial septum appeared to be intact without any evidence of shunt. The aortic valve appeared to be bicuspid valve and with fusion of the right and left coronary cusp. There was no aortic regurgitation, but there was mild aortic stenosis with a peak gradient of 41 and mean of 22 mmHg. The mitral valve seems to be thickened and calcified with mild MR. There was mild tricuspid regurgitation seen. The pulmonary artery systolic pressure was not calculated. CONCLUSION: 1. Normal left ventricular dimension and systolic function. 2. Normal right ventricular dimension and systolic function. 3. [id number] biatrial enlargements. 4. Bicuspid aortic valve with fusion of the right and left coronary cusps and evidence of mild aortic stenosis without aortic insufficiency. The mean gradient was 22 mmHg. 5. Thickened mitral valve leaflets with mild MR. 6. Normal tricuspid valve and pulmonic valve. 7. Mildly dilated aortic root. 8. No evidence of pericardial effusion. MMODL / IJN: [id number] /
--- NOTE | 2020-12-28 18:25 | CC ---
CARDIAC CATHETERIZATION REPORT DATE OF SERVICE: 12/28/2020 PERFORMING PHYSICIAN: Wm Kilgore MD. PROCEDURE PERFORMED: 1. Right heart catheterization. 2. Selective right and left coronary angiogram. INDICATION: This is a 65-year-old gentleman with multiple comorbidities who continues to have shortness of breath with exertion unknown etiology. He was seen recently by his guest services to rule out any pulmonary etiology for the shortness of breath. He is known to have chronic lung disease. Also, he underwent an echocardiogram which showed evidence of bicuspid aortic valve with moderate aortic stenosis and also preserved left ventricular systolic function. In light of that, right and left heart catheterization was advised. APPROACH: Right radial artery and right cephalic artery vein. COMPLICATION: None. LEVEL OF SEDATION: Moderate with sedation length of 20 minutes. PROCEDURE DESCRIPTION: After obtaining informed consent, the patient was brought to the cardiac lab tester. The right cephalic vein was cannulated initially and then I did place an 018 wire over the catheter and then I changed the catheter over into a 6-[place] catheter. The right radial artery was cannulated using micropuncture technique and a micropuncture wire passed easily then I placed a 6-[place] sheath there as well. I gave the patient 2 mg of verapamil IA and 10,000 units of heparin IV. Initially, right heart catheterization was performed using Holcomb catheter. After that I did selective right and left coronary angiogram using JR4 and JL3.5 catheters. HEMODYNAMICS: 1. Pulmonary capillary wedge pressure was 11 mmHg. 2. PA pressures were as follows: Systolic of 36 and diastolic of 8 and mean of 24 mmHg. 3. RV pressures were as follows systolic 29 and end-diastolic of 11 mmHg. 4. RA pressure was 10 mmHg. 5. The transpulmonary gradient was 13 mm Hg. 6. The pulmonary vascular resistance was 1.3 wood unit. SATURATIONS: 1. Pulmonary capillary wedge saturation was 90.7%. 2. PA saturation was 74.7%. 3. RV saturation was 77.1%. 4. RA saturation was 71%. 5. IVC saturation was 70.8%. 6. SVC saturation was 72.6%. 7. Cardiac output was 9.83 L/minute. SELECTIVE CORONARY ANGIOGRAM: 1. The RCA is a large caliber vessel it is a dominant vessel and appeared to be angiographically normal. 2. The left main is angiographically normal and it bifurcates into LCX and LAD. 3. The LCX is a large caliber vessel, it is a nondominant vessel and appeared to be angiographically normal and gives rise into a large OM branch which seems to be angiographically normal. 4. The LAD is a large caliber vessel. The LAD is angiographically normal. It gives rise into a large diagonal branch which seems to be angiographically normal. CONCLUSION: 1. Mild pulmonary hypertension. The pulmonary artery mean pressure was 24 mmHg. This is consider mild pulmonary hypertension by the new definition which is above 20 mm mean. 2. Transpulmonary gradient was 13 mmHg. 3. Pulmonary vascular resistance was 1.3 wood units. 4. No clear-cut evidence of intracardiac shunts. 5. Elevated cardiac output. 6. Mild nonobstructive coronary artery disease. POSTPROCEDURE MANAGEMENT: 1. Given the above findings, I advise maximize medical treatment. 2. If we have any concern about intracardiac shunt, we might consider doing a CT scan or MRI down the line. 3. Follow up with the patient. MMYANICKL / IJN: [id number] /
[2020-12-28 19:40] VITALS: BP 94/59; PULSE 57; RESP 18
== END ==
LOC: CATHCVL 06:59
PROVIDERS: ATTEND Internal Medicine Interventional Cardiology
DX: I08.2 Rheumatic disorders of both aortic and tricuspid valves (principal); Q23.1 Congenital insufficiency of aortic valve; I10 Essential (primary) hypertension; E78.5 Hyperlipidemia, unspecified; E11.51 Type 2 diabetes mellitus with diabetic peripheral angiopathy without gangrene; E78.00 Pure hypercholesterolemia, unspecified; I27.20 Pulmonary hypertension, unspecified; Z72.0 Tobacco use; I48.0 Paroxysmal atrial fibrillation; G47.33 Obstructive sleep apnea (adult) (pediatric); Z79.01 Long term (current) use of anticoagulants; Z79.84 Long term (current) use of oral hypoglycemic drugs; Z79.51 Long term (current) use of inhaled steroids; Z79.899 Other long term (current) drug therapy; Z88.6 Allergy status to analgesic agent; Z88.4 Allergy status to anesthetic agent; Z88.1 Allergy status to other antibiotic agents; Z88.8 Allergy status to other drugs, medicaments and biological substances
CPT/HCPCS: 93312; 93320; 93325; 93456; 80051; 85018; 82810; C1769; C1894; C1751; J2250; J2001; J3010; J1644; Q9967

== ENCOUNTER → 2021-04-14 | Outpatient (CLI) | payer MEDICARE | END | disposition home or self-care (01) | LOC: RADMRIMAIN 16:22 | PROVIDERS: ATTEND Family Medicine | DX: Z53.9 Procedure and treatment not carried out, unspecified reason (principal) ==

== ENCOUNTER 2021-05-21 10:17 | Inpatient (IN) | payer MEDICARE ==
--- NOTE | 2021-05-21 11:57 | ED ---
SOB HPI - General Chief Complaint: Shortness of Breath Stated Complaint: BARRETT/Cough/Low O2 Time Seen by Provider: 05/21/21 11:50 Source: patient, family, RN notes reviewed, old records reviewed Mode of arrival: ambulatory Limitations: no limitations - History of Present Illness Initial Comments: 66-year-old male patient, alert and oriented 4, presents to the emergency room with family member complaining of shortness of breath, fatigue, chills and cough for 6 days. States that he has been monitoring his oxygen saturation at home and has been as low as 68%. It is worse with exertion. Denies any chest pain, nausea, vomiting or diarrhea. He does report fevers of 102. He has been vaccinated against coronavirus and received a booster in March. He also received a flu vaccine. Patient states he was put on Augmentin and steroids by his primary care doctor yesterday. He states that this is his sixth day and he is not getting better and is getting worse. He has a history of A. fib, COPD, diabetes, pulmonary embolism. MD Complaint: shortness of breath, cough -: days(s) (6) Severity scale (1-10): 0 Known History Of: COPD, diabetes Associated Symptoms: fever, cough Treatments Prior to Arrival: bronchodilator, other (Augmentin and steroids) - Related Data Home Medications Medication Instructions Recorded Confirmed Pregabalin [Lyrica] 300 mg PO BID 08/18/17 05/21/21 Sertraline [Zoloft] 100 mg PO DAILY 08/18/17 05/21/21 Montelukast Sodium [Singulair] 10 mg PO HS 01/29/18 05/21/21 Furosemide [Lasix] 20 mg PO BID 07/11/18 05/21/21 Potassium Chloride [K-Tab ER] 20 meq PO BID 07/11/18 05/21/21 Betamethasone Dipropionate 1 applic TOPICAL BID 09/02/18 05/21/21 [Diprolene AF 0.05% Cream] Diltiazem HCl [Cartia Xt] 120 mg PO DAILY 06/28/19 05/21/21 Fluticasone Nasal [place] [Flonase 2 spr EA NOSTRIL DAILY 06/28/19 05/21/21 Nasal [place]] Ipratropium-Albuterol Nebulize 3 ml INHALATION RT-QID PRN 06/28/19 05/21/21 [Duoneb 0.5 mg-3 mg/3 ml Soln] Ipratropium [place] 0.06%Nasal 2 spray EA NOSTRIL TID 06/30/19 05/21/21 [Atrovent Nasal 0.06%] Omeprazole [PriLOSEC] 20 mg PO DAILY 12/24/20 05/21/21 Albuterol Sulfate [Ventolin HFA] 2 puff INHALATION RT-QID PRN 05/21/21 05/21/21 Amoxicillin/Potassium Clav 1 tab PO BID 05/21/21 05/21/21 [Augmentin 875-125 Tablet] Apixaban [Eliquis] 5 mg PO BID 05/21/21 05/21/21 Betamethasone Dipropionate 1 applic TOPICAL DAILY PRN 05/21/21 05/21/21 [Betamethasone Diprop Augm Gel 0.05%] Budesonide [Pulmicort] 0.5 mg INHALATION RT-BID 05/21/21 05/21/21 Diclofenac Sodium Gel [Voltaren 1 applic TOPICAL QID PRN 05/21/21 05/21/21 Gel] Ketoconazole 2% Shampoo [Nizoral] 1 applic TOPICAL DAILY PRN 05/21/21 05/21/21 Simvastatin [Zocor] 20 mg PO HS 05/21/21 05/21/21 metFORMIN HCL [Glucophage] 1,000 mg PO BID 05/21/21 05/21/21 predniSONE See Taper PO DIRECTED 05/21/21 05/21/21 Allergies Allergy/AdvReac Type Severity Reaction Status Date / Time gemfibrozil [From Lopid] Allergy Unknown Verified 05/21/21 14:19 aspirin AdvReac Abdominal Verified 05/21/21 14:19 Pain fentanyl AdvReac Hallucinati Verified 05/21/21 14:19 ons moxifloxacin [From Avelox] AdvReac Unknown Verified 05/21/21 14:19 Review of Systems ROS Statement: Those systems with pertinent positive or pertinent negative responses have been documented in the HPI. ROS Other: All systems not noted in ROS Statement are negative. Past Medical History Past Medical History: Atrial Fibrillation, Atrial Flutter, Asthma, Heart Octavio lure, COPD, Diabetes Mellitus, GERD/Reflux, Hyperlipidemia, Hypertension, Osteoarthritis (OA), Pneumonia, Prostate Disorder, Pulmonary Embolus (PE), Skin Disorder, Sleep Apnea/CPAP/BIPAP Additional Past Medical History / Comment(s): CPAP use. Neuropathy bilateral feet, dermatitis, enlarged prostate, PE found in 07/2003 while hospitalized for pneumonia, spinal stenosis, degenerative scoliosis, migraines, palpitations, "bleeds easily", hospitalized in August w/influenza-can't seem to "shake" cough. SOB and fatigue last few months. History of Any Multi-Drug Resistant Organisms: None Reported Past Surgical History: Bowel Resection, Heart Catheterization, Hernia Repair, Joint Replacement, Orthopedic Surgery, Tonsillectomy Additional Past Surgical History / Comment(s): Bilateral hip replacements, bilateral cataracts removed, hiatal hernia repair, incisional hernia repair with mesh-had bowel complication that resulted in a bowel resection, bronchoscopies, colonoscopy, ulna nerve right elbow surgery, cardioversion, ARNOL. Past Anesthesia/Blood Transfusion Reactions: Previous Problems w/ Anesthesia, Family History of Problems w/ Anesthesia Additional Past Anesthesia/Blood Transfusion Reaction / Comment(s): Problem with being "twilighted" - becomes very combative. Slow to wake up. Uncle has same symptoms with "twilight". Past Psychological History: Depression Smoking Status: Former smoker Past Alcohol Use History: None Reported Past Drug Use History: None Reported - Past Family History Father Family Medical History: Cancer Additional Family Medical History / Comment(s): Prostrate cancer. Mother Family Medical History: Cancer Additional Family Medical History / Comment(s): Skin cancer. Brother(s) Family Medical History: Cancer Additional Family Medical History / Comment(s): Brother of lung cancer. General Exam Limitations: no limitations General appearance: alert, in no apparent distress Head exam: Present: atraumatic, normocephalic, normal inspection Eye exam: Present: EOMI Respiratory exam: Present: rhonchi, other (orthopnea). Absent: chest wall tenderness Cardiovascular Exam: Present: regular rate, normal rhythm (murmur) GI/Abdominal exam: Present: distended, hernia Extremities exam: Present: normal inspection, full ROM, normal capillary refill. Absent: tenderness, pedal edema, joint swelling, calf tenderness Neurological exam: Present: alert, oriented X3 Psychiatric exam: Present: normal affect, normal mood Skin exam: Present: warm, dry, intact, normal color. Absent: rash, cyanosis, diaphoretic, pallor Course Vital Signs 05/21/21 05/21/21 05/21/21 11:10 12:51 13:15 Temperature 99.7 F H Pulse Rate 82 82 Respiratory 18 20 20 Rate Blood Pressure 99/69 O2 Sat by Pulse 90 L 95 Oximetry 05/21/21 05/21/21 13:22 15:32 Temperature Pulse Rate 80 73 Respiratory 18 Rate Blood Pressure O2 Sat by Pulse 93 L Oximetry Medical Decision Making - Medical Decision Making Chest x-ray shows multifocal pneumonia. WBC count is 12.0 with an elevated neutrophil count. Troponin is negative at 0.012 and EKG shows normal sinus rhythm. D-dimer is negative at 0.31. Coronavirus is negative. Patient's oxygen saturation is increased to 93-94% on. He is feeling better after the DuoNeb treatment. Due to the patient's hypoxia and need for oxygen therapy he'll be admitted to the hospital for community acquired pneumonia with hypoxia. Case discussed with Dr. Cuba - Lab Data Result diagrams: 05/21/21 12:34 05/21/21 12:34 Lab Results 05/21/21 05/21/21 05/21/21 Range/Units 12:34 12:34 12:34 WBC 12.0 H (3.8-10.6) k/uL RBC 4.50 (4.30-5.90) m/uL Hgb 13.9 (13.0-17.5) gm/dL Hct 40.8 (39.0-53.0) % MCV 90.6 (80.0-100.0) fL MCH 31.0 (25.0-35.0) pg MCHC 34.2 (31.0-37.0) g/dL RDW 14.0 (11.5-15.5) % Plt Count 134 L (150-450) k/uL MPV 10.0 Neutrophils % 89 % Lymphocytes % 3 % Monocytes % 6 % Eosinophils % 0 % Basophils % 0 % Neutrophils # 10.7 H (1.3-7.7) k/uL Lymphocytes # 0.4 L (1.0-4.8) k/uL Monocytes # 0.8 (0-1.0) k/uL Eosinophils # 0.0 (0-0.7) k/uL Basophils # 0.1 (0-0.2) k/uL PT 10.6 (9.0-12.0) sec INR 1.0 (<1.2) APTT 28.4 (22.0-30.0) sec D-Dimer 0.31 (<0.60) mg/L FEU Sodium 137 (137-145) mmol/L Potassium 4.5 (3.5-5.1) mmol/L Chloride 100 (98-107) mmol/L Carbon Dioxide 27 (22-30) mmol/L Anion Gap 10 mmol/L BUN 15 (9-20) mg/dL Creatinine 0.66 (0.66-1.25) mg/dL Est GFR (CKD-EPI)AfAm >90 (>60 ml/min/1.73 sqM) Est GFR (CKD-EPI)NonAf >90 (>60 ml/min/1.73 sqM) Glucose 188 H (74-99) mg/dL Plasma Lactic Acid Gabriel (0.7-2.0) mmol/L Calcium 9.3 (8.4-10.2) mg/dL Magnesium 2.0 (1.6-2.3) mg/dL Total Bilirubin 0.5 (0.2-1.3) mg/dL AST 32 (17-59) U/L ALT 24 (4-49) U/L Alkaline Phosphatase 74 (38-126) U/L Troponin I (0.000-0.034) ng/mL Total Protein 6.3 (6.3-8.2) g/dL Albumin 3.9 (3.5-5.0) g/dL Coronavirus (PCR) (Not Detectd) 05/21/21 05/21/21 05/21/21 Range/Units 12:34 12:34 12:34 WBC (3.8-10.6) k/uL RBC (4.30-5.90) m/uL Hgb (13.0-17.5) gm/dL Hct (39.0-53.0) % MCV (80.0-100.0) fL MCH (25.0-35.0) pg MCHC (31.0-37.0) g/dL RDW (11.5-15.5) % Plt Count (150-450) k/uL MPV Neutrophils % % Lymphocytes % % Monocytes % % Eosinophils % % Basophils % % Neutrophils # (1.3-7.7) k/uL Lymphocytes # (1.0-4.8) k/uL Monocytes # (0-1.0) k/uL Eosinophils # (0-0.7) k/uL Basophils # (0-0.2) k/uL PT (9.0-12.0) sec INR (<1.2) APTT (22.0-30.0) sec D-Dimer (<0.60) mg/L FEU Sodium (137-145) mmol/L Potassium (3.5-5.1) mmol/L Chloride (98-107) mmol/L Carbon Dioxide (22-30) mmol/L Anion Gap mmol/L BUN (9-20) mg/dL Creatinine (0.66-1.25) mg/dL Est GFR (CKD-EPI)AfAm (>60 ml/min/1.73 sqM) Est GFR (CKD-EPI)NonAf (>60 ml/min/1.73 sqM) Glucose (74-99) mg/dL Plasma Lactic Acid Gabriel 1.9 (0.7-2.0) mmol/L Calcium (8.4-10.2) mg/dL Magnesium (1.6-2.3) mg/dL Total Bilirubin (0.2-1.3) mg/dL AST (17-59) U/L ALT (4-49) U/L Alkaline Phosphatase (38-126) U/L Troponin I <0.012 (0.000-0.034) ng/mL Total Protein (6.3-8.2) g/dL Albumin (3.5-5.0) g/dL Coronavirus (PCR) Not Detected (Not Detectd) - EKG Data EKG shows normal: sinus rhythm (Ventricular rate of 78, [place] interval 0.188, QRS 0.96, QTC 0.4-8) Disposition Clinical Impression: Pneumonia, Hypoxia Disposition: ADMITTED IP TO THIS [facility] Condition: Fair Decision Date: 05/21/21 Decision Time: 14:46
[2021-05-21] MEDS ORDERED: ACETAMINOPHEN TAB 325 MG TAB PO STA (12:30)
[2021-05-21] MEDS ORDERED: IPRATROPIUM-ALBUTEROL 3 ML NEB INHALATION STA (12:30)
[2021-05-21 13:12] LABS: ALT 24 U/L (4-49); AST 32 U/L (17-59); African American GFR (CKD) >90 (>60 ml/min/1.73 sqM); Albumin 3.9 g/dL (3.5-5.0); Alkaline Phosphatase 74 U/L (38-126); Anion Gap 10 mmol/L; Blood Urea Nitrogen 15 mg/dL (9-20); Calcium 9.3 mg/dL (8.4-10.2); Carbon Dioxide 27 mmol/L (22-30); Chloride 100 mmol/L (98-107); Glucose 188 mg/dL (74-99); Non-African American GFR(CKD) >90 (>60 ml/min/1.73 sqM); Potassium 4.5 mmol/L (3.5-5.1); Sodium 137 mmol/L (137-145); Total Bilirubin 0.5 mg/dL (0.2-1.3); Total Protein 6.3 g/dL (6.3-8.2)
[2021-05-21 13:27] LABS: Basophils # (A) 0.1 k/uL (0-0.2); Basophils % (A) 0 %; Eosinophils % (A) 0 %; HCT 40.8 % (39.0-53.0); HGB 13.9 gm/dL (13.0-17.5); Lymphocytes # (A) 0.4 k/uL (1.0-4.8); Lymphocytes % (A) 3 %; MCHC 34.2 g/dL (31.0-37.0); MCV 90.6 fL (80.0-100.0); Monocytes # (A) 0.8 k/uL (0-1.0); Monocytes % (A) 6 %; Neutrophils # (A) 10.7 k/uL (1.3-7.7); Neutrophils % (A) 89 %; Platelet Count 134 k/uL (150-450)
[2021-05-21 13:34] LABS: Partial Thromboplastin Time 28.4 sec (22.0-30.0); Prothrombin Time 10.6 sec (9.0-12.0)
--- NOTE | 2021-05-21 14:30 | XR ---
INDICATION: Patient age:Male; 66 years old; Reason for study: difficulty breathing; PHH. COMPARISON: Chest radiographs from 06/25/2020. TECHNIQUE: Frontal and lateral views of the chest. FINDINGS: Lungs/Pleura: Multifocal airspace opacities. No evidence of pneumothorax or pleural effusion. Pulmonary vascularity: Unremarkable. Heart/mediastinum: Cardiomediastinal silhouette is unremarkable. Musculoskeletal: No acute osseous pathology. IMPRESSION: Multifocal pneumonia.
[2021-05-21] MEDS ORDERED: AZITHROMYCIN 500 MG in SODIUM CHLORIDE 0.9% 250 ML IVPB STA (14:40)
[2021-05-21] MEDS ORDERED: cefTRIAXone IN SWFI 1,000 MG/10 ML SYRINGE IVP STA (14:43)
[2021-05-21] MEDS ORDERED: NALOXONE 0.4 MG/ML 1 ML VIAL IV PRN (14:47)
[2021-05-21] MEDS ORDERED: ALBUTEROL HFA INHALER INHALATION PRN ×2 (16:05→21:07)
[2021-05-21] MEDS ORDERED: TIOTROPIUM 2.5 MCG INHALER INHALATION PRN (16:05)
[2021-05-21] MEDS: SODIUM CHLORIDE 0.9% 1,000 ML IV SCH (16:19)
[2021-05-21] MEDS: FUROSEMIDE 20 MG TAB PO SCH (19:54)
[2021-05-21] MEDS ORDERED: FLUTICASONE 110 MCG INHALER INHALATION SCH (20:00)
[2021-05-21] MEDS ORDERED: metFORMIN 500 MG TAB PO SCH (21:00)
[2021-05-21] MEDS ORDERED: methylPREDNISolone SOD SUCCI 125 MG/2 ML VIAL IV STA (21:05)
[2021-05-21] MEDS ORDERED: HYDROcodone/APAP 5-325MG 1 EACH TAB PO STA (21:13)
[2021-05-21] MEDS: MONTELUKAST 10 MG TAB PO SCH (21:56)
[2021-05-21] MEDS: POTASSIUM CHLORIDE ER 20 MEQ TAB.ER PO SCH (21:56)
[2021-05-21] MEDS: ATORVASTATIN 10 MG TAB PO SCH (21:56)
[2021-05-21] MEDS: ACETAMINOPHEN TAB 325 MG TAB PO PRN (21:56)
[2021-05-21] MEDS: APIXABAN 5 MG TAB PO SCH (21:56)
[2021-05-21] MEDS ORDERED: IPRATROPIUM-ALBUTEROL 3 ML NEB INHALATION PRN ×2 (22:02→23:27)
[2021-05-21] MEDS: PREGABALIN 100 MG CAP PO SCH (22:03)
--- NOTE | 2021-05-21 23:40 | P.HPIM ---
History of Present Illness H&P Date: 05/21/21 Chief Complaint: Shortness of breath Patient is a 66-year-old male with a known history of atrial fibrillation/flutter status post cardioversion/ARNOL on anticoagulation currently with Eliquis, COPD, obstructive sleep apnea on CPAP at home, obesity with a BMI 38.5, hypertension, hyperlipidemia, diabetes type 2, history of PE, bilateral lower extremity feet neuropathy, history of pneumonia and multiple other medical problems presents to ER with complaints of worsening shortness of breath for the past 5 to 6 days. Patient was also having cough but unable to bring up any s putum. Patient did have subjective fever and chills at home. Patient has been monitoring his oxygen saturation at home and was found to be as low as at 68%. Otherwise patient denied any complaints of chest pain. No nausea vomiting or abdominal pain or diarrhea. Patient states that. He fever at 102F at home. Patient is fully vaccinated and also took booster dose in March 2021. Patient was seen by his primary care physician yesterday and was started on Augmentin and steroids. Patient presents to ER due to worsening symptoms. Patient received a dose of IV Solu-Medrol 125 mg and azithromycin ceftriaxone in the ER. Chest x-ray showed multifocal pneumonia. EKG showed normal sinus rhythm. Laboratory data showed WBC 12.0 hemoglobin 13.9 and platelets 134 neutrophils 10.7 lymphocytes 0.4 D-dimer 0.31 Sodium 137 potassium 4.5 chloride 100 bicarb 27 BUN 15 and creatinine 0.66 blood sugar 188 lactic acid 1.9 Liver enzymes are not elevated. Troponin x1 - COVID-19 PCR not detected. Review of Systems Constitutional: Patient does have fever and chills at home. Generalized weakness and fatigue.. Abdomen: Patient denied nausea vomiting and diarrhea and abdominal pain. Cardiovascular: Patient denies any chest pain ,no palpitations. Respiratory: Patient does have cough without sputum production. Shortness of breath. Neurologic: Patient denied any numbness or tingling headache. Musculoskeletal: Patient denies any complaints of joint swelling or deformity. Skin: Negative Psychiatric: Negative Endocrine: No heat or cold intolerance. No recent weight gain. Genitourinary: No dysuria or hematuria. All other 14 point ROS negative except the above Past Medical History Past Medical History: Atrial Fibrillation, Atrial Flutter, Asthma, Heart Failure, COPD, Diabetes Mellitus, GERD/Reflux, Hyperlipidemia, Hypertension, Osteoarthritis (OA), Pneumonia, Prostate Disorder, Pulmonary Embolus (PE), Skin Disorder, Sleep Apnea/CPAP/BIPAP Additional Past Medical History / Comment(s): CPAP use. Neuropathy bilateral feet, dermatitis, enlarged prostate, PE found in 07/2003 while hospitalized for p neumonia, spinal stenosis, degenerative scoliosis, migraines, palpitations, "bleeds easily", hospitalized in August w/influenza-can't seem to "shake" cough. SOB and fatigue last few months. History of Any Multi-Drug Resistant Organisms: None Reported Past Surgical History: Bowel Resection, Heart Catheterization, Hernia Repair, Joint Replacement, Orthopedic Surgery, Tonsillectomy Additional Past Surgical History / Comment(s): Bilateral hip replacements, bilateral cataracts removed, hiatal hernia repair, incisional hernia repair with mesh-had bowel complication that resulted in a bowel resection, bronchoscopies, colonoscopy, ulna nerve right elbow surgery, cardioversion, ARNOL. Past Anesthesia/Blood Transfusion Reactions: Previous Problems w/ Anesthesia, Family History of Problems w/ Anesthesia Additional Past Anesthesia/Blood Transfusion Reaction / Comment(s): Problem with being "twilighted" - becomes very combative. Slow to wake up. Uncle has same symptoms with "twilight". Past Psychological History: Depression Smoking Status: Former smoker Past Alcohol Use History: None Reported Past Drug Use History: None Reported - Past Family History Father Family Medical History: Cancer Additional Family Medical History / Comment(s): Prostrate cancer. Mother Family Medical History: Cancer Additional Family Medical History / Comment(s): Skin cancer. Brother(s) Family Medical History: Cancer Additional Family Medical History / Comment(s): Brother of lung cancer. Medications and Allergies Home Medications Medication Instructions Recorded Confirmed Type Pregabalin [Lyrica] 300 mg PO BID 08/18/17 05/21/21 History Sertraline [Zoloft] 100 mg PO DAILY 08/18/17 05/21/21 History Montelukast Sodium [Singulair] 10 mg PO HS 01/29/18 05/21/21 History Furosemide [Lasix] 20 mg PO BID 07/11/18 05/21/21 History Potassium Chloride [K-Tab ER] 20 meq PO BID 07/11/18 05/21/21 History Betamethasone Dipropionate 1 applic TOPICAL BID 09/02/18 05/21/21 History [Diprolene AF 0.05% Cream] Diltiazem HCl [Cartia Xt] 120 mg PO DAILY 06/28/19 05/21/21 History Fluticasone Nasal [place] [Flonase 2 spr EA NOSTRIL DAILY 06/28/19 05/21/21 History Nasal [place]] Ipratropium-Albuterol Nebulize 3 ml INHALATION RT-QID PRN 06/28/19 05/21/21 History [Duoneb 0.5 mg-3 mg/3 ml Soln] Ipratropium [place] 0.06%Nasal 2 spray EA NOSTRIL TID 06/30/19 05/21/21 History [Atrovent Nasal 0.06%] Omeprazole [PriLOSEC] 20 mg PO DAILY 12/24/20 05/21/21 History Albuterol Sulfate [Ventolin HFA] 2 puff INHALATION RT-QID PRN 05/21/21 05/21/21 History Amoxicillin/Potassium Clav 1 tab PO BID 05/21/21 05/21/21 History [Augmentin 875-125 Tablet] Apixaban [Eliquis] 5 mg PO BID 05/21/21 05/21/21 History Betamethasone Dipropionate 1 applic TOPICAL DAILY PRN 05/21/21 05/21/21 History [Betamethasone Diprop Augm Gel 0.05%] Budesonide [Pulmicort] 0.5 mg INHALATION RT-BID 05/21/21 05/21/21 History Diclofenac Sodium Gel [Voltaren 1 applic TOPICAL QID PRN 05/21/21 05/21/21 History Gel] Ketoconazole 2% Shampoo [Nizoral] 1 applic TOPICAL DAILY PRN 05/21/21 05/21/21 History Simvastatin [Zocor] 20 mg PO HS 05/21/21 05/21/21 History metFORMIN HCL [Glucophage] 1,000 mg PO BID 05/21/21 05/21/21 History predniSONE See Taper PO DIRECTED 05/21/21 05/21/21 History Allergies Allergy/AdvReac Type Severity Reaction Status Date / Time gemfibrozil [From Lopid] Allergy Unknown Verified 05/21/21 14:19 aspirin AdvReac Abdominal Verified 05/21/21 14:19 Pain fentanyl AdvReac Hallucinati Verified 05/21/21 14:19 ons moxifloxacin [From Avelox] AdvReac Unknown Verified 05/21/21 14:19 Physical Exam Vitals: Vital Signs Temp Pulse Resp BP Pulse Ox 05/21/21 21:20 80 05/21/21 21:12 92 L 05/21/21 21:07 81 05/21/21 19:54 82 16 141/94 92 L 05/21/21 15:32 73 18 93 L 05/21/21 13:22 80 05/21/21 13:15 82 20 95 05/21/21 12:51 20 05/21/21 11:10 99.7 F H 82 18 99/69 90 L Intake and Output 05/21/21 05/21/21 05/21/21 06:59 14:59 22:59 Other: Weight 136.078 kg PHYSICAL EXAMINATION: Patient is lying in the bed comfortably, no acute distress, awake alert and oriented. obese. HEENT: Normocephalic. Neck is supple. Pupils reactive. Nostrils clear. Oral cavity is moist. Neck reveals no JVD, carotid bruits, or thyromegaly. CHEST EXAMINATION: Trachea is central. Symmetrical expansion. Bilateral Diffuse wheezing and rhonchi.. CARDIAC: Normal S1, S2 with no gallops. No murmurs ABDOMEN: Soft. Bowel sounds normal. No organomegaly. No abdominal bruits. Extremities: trace edema. No clubbing or cyanosis Neurologically awake, alert, oriented x3 with well-coordinated movements. No focal deficits noted Skin: No rash or skin lesions. Psychiatric: Cooperative. Nonsuicidal Musculoskeletal: No joint swelling or deformity. Normal range of motion. Results CBC & Chem 7: 05/21/21 12:34 05/21/21 12:34 Labs: Abnormal Lab Results - Last 24 Hours (Table) 05/21/21 05/21/21 Range/Units 12:34 12:34 WBC 12.0 H (3.8-10.6) k/uL Plt Count 134 L (150-450) k/uL Neutrophils # 10.7 H (1.3-7.7) k/uL Lymphocytes # 0.4 L (1.0-4.8) k/uL Glucose 188 H (74-99) mg/dL Thrombosis Risk Factor Assmnt - DVT/VTE Prophylaxis DVT/VTE Prophylaxis: Pharmacologic Prophylaxis ordered Assessment and Plan Assessment: Acute hypoxic respiratory failure secondary to pneumonia Multifocal pneumonia. COVID-19 PCR negative. Acute COPD exacerbation Paroxysmal atrial fibrillation/flutter on anticoagulation with Eliquis at home. History of ARNOL/cardioversion. Obesity with a BMI 38.5 Mild pulmonary hypertension Bicuspid aortic valve with mild aortic stenosis. History of cardiac catheterization on 12/28/2020 showed mild nonobstructive CAD. Hypertension Hyperlipidemia GERD Osteoarthritis BPH Diabetes type 2 [id number] Obstructive sleep apnea on CPAP at home Bilateral feet peripheral neuropathy Previous history of smoking Depression Degenerative scoliosis Stable migraine headaches DVT prophylaxis patient is already on Eliquis Plan: Patient will be continued IV antibiotics with ceftriaxone and azithromycin. Gentle IV hydration and oxygen supplementation. Patient will be continued Solu-Medrol 60 mg every 6 hourly and duo nebs. Continue with home medications including Cardizem. Continue with anticoagulation with Eliquis. Repeat CBC BMP procalcitonin and proBNP levels. Pulmonary will be consulted. Urine Legionella antigen was sent. Continue to follow closely. Prognosis guarded at this time. Time with Patient: Greater than 30
[2021-05-22] MEDS ORDERED: ALBUTEROL HFA INHALER INHALATION PRN (01:01)
[2021-05-22] MEDS ORDERED: IPRATROPIUM-ALBUTEROL 3 ML NEB INHALATION PRN (02:38)
[2021-05-22] MEDS: ACETAMINOPHEN TAB 325 MG TAB PO PRN (05:13)
[2021-05-22] MEDS: methylPREDNISolone SOD SUCCI 125 MG/2 ML VIAL IV SCH ×5 (05:13→22:25)
[2021-05-22] MEDS: SODIUM CHLORIDE 0.9% 1,000 ML IV SCH (05:14)
--- NOTE | 2021-05-22 06:46 | XR ---
EXAMINATION TYPE: XR chest 1V DATE OF EXAM: 05/22/2021 COMPARISON: 05/21/2021 HISTORY: Follow-up pneumonia TECHNIQUE: Single frontal view of the chest is obtained. FINDINGS: There is marked pulmonary vascular congestion. There is partial consolidation mid and lowe r right lung which is worsened in the interval. There is no pneumothorax or large pleural effusion. Heart size is normal. IMPRESSION: Mild interval worsening in the lung infiltrates particularly in the right mid lower lung zone.
[2021-05-22] MEDS: BUDESONIDE 0.5 MG/2 ML NEBU INHALATION SCH ×2 (07:47→20:09)
[2021-05-22] MEDS: IPRATROPIUM-ALBUTEROL 3 ML NEB INHALATION SCH ×4 (07:47→20:09)
[2021-05-22] MEDS ORDERED: FLUTICASONE 110 MCG INHALER INHALATION SCH (08:00)
[2021-05-22] MEDS ORDERED: TIOTROPIUM 2.5 MCG INHALER INHALATION SCH (08:00)
[2021-05-22] MEDS ORDERED: ALBUTEROL HFA INHALER INHALATION SCH (08:00)
[2021-05-22] MEDS: POTASSIUM CHLORIDE ER 20 MEQ TAB.ER PO SCH ×2 (08:51→22:22)
[2021-05-22] MEDS: FUROSEMIDE 20 MG TAB PO SCH ×2 (08:51→17:50)
[2021-05-22] MEDS: SERTRALINE 100 MG TAB PO SCH (08:51)
[2021-05-22] MEDS: PANTOPRAZOLE 40 MG TABLET PO SCH (08:51)
[2021-05-22] MEDS: AZITHROMYCIN 500 MG TAB PO SCH (08:52)
[2021-05-22] MEDS: PREGABALIN 100 MG CAP PO SCH ×2 (08:58→22:22)
[2021-05-22] MEDS: APIXABAN 5 MG TAB PO SCH ×2 (08:59→22:22)
[2021-05-22] MEDS ORDERED: FLUTICASONE 50MCG/SPRAY NASAL 16GM EA NOSTRIL SCH (09:00)
[2021-05-22] MEDS: DILTIAZEM CD 120 MG CAP.ER.24H PO SCH (09:46)
[2021-05-22 11:47] LABS: Basophils # (A) 0.01 X 10*3/uL (0.00-0.10); Basophils % (A) 0.2 %; Eosinophils # (A) 0 X 10*3/uL (0.04-0.35); Eosinophils % (A) 0 %; HCT 41.8 % (39.6-50.0); HGB 13.2 g/dL (13.0-17.0); Lymphocytes % (A) 6.2 %; MCHC 31.6 g/dL (32.0-37.0); Mean Platelet Volume 12.3 fL (9.5-12.2); Monocytes # (A) 0.14 X 10*3/uL (0.20-1.00); Monocytes % (A) 2.2 %; Neutrophils % (A) 90.6 %; Platelet Count 138 X 10*3/uL (140-440); RDW 14.1 % (11.5-14.5)
[2021-05-22 12:39] LABS: African American GFR (CKD) >90 (>60 ml/min/1.73 sqM); Anion Gap 10 mmol/L; Blood Urea Nitrogen 17 mg/dL (9-20); Calcium 8.7 mg/dL (8.4-10.2); Carbon Dioxide 27 mmol/L (22-30); Chloride 102 mmol/L (98-107); Glucose 203 mg/dL (74-99); Non-African American GFR(CKD) >90 (>60 ml/min/1.73 sqM); Potassium 4.2 mmol/L (3.5-5.1); Sodium 139 mmol/L (137-145)
[2021-05-22] MEDS: traMADol 50 MG TAB PO SCH (17:50)
--- NOTE | 2021-05-22 18:01 | P.CNPUL ---
History of Present Illness Consult date: 05/22/21 Reason for consult: pneumonia History of present illness: 66-year-old new patient presented to the hospital because of shortness of breath, fatigue, chills and cough a few days duration. Apparently, the patient was checked and is pulse oxing at home and he noted that his pulse ox is running low and the number was as low as 68%. He was having also exertional dyspnea. Denied having any chest pain. No nausea. No vomiting and no diarrhea. He reported fever of 100F. He has been vaccinated to COVID 19 and he is also received a booster shot in March 2021. The patient tested negative for COVID 19 during this emergency department visit. Noted the patient has also been vaccinated for this flu/influenza. Apparently had contacted his primary care physician. He was started on a combination of Augmentin and steroids on outpatient basis. He stated that this was a 60 of treatment he was not improving and for that reason he decided to come into the hospital. He is known to have multiple medical problems including history of atrial fibrillation/flutter and the patient undergone previous ARNOL cardioversion followed by the coagulation with Mian. He is also known to have COPD, obstructive sleep apnea maintained on CPAP therapy at home and he carries a body mass index of 38.5. He has hypertension and hyperlipidemia and diabetes mellitus type 2 and he has previous history of pulmonary embolism and peripheral neuropathy involving the lower extremity is bilaterally. During this current hospital stay, the white cell count was at 12 with a hemoglobin of 13.9, d-dimer was 0.31, sodium was 137, BUN was 50 with a creatinine of 0.6, lactic acid level was at 1.9. LFTs were normal, troponin was negative. COVID 19 by PCR was n egative. EKG was sinus rhythm. Chest x-ray showed evidence of bilateral pneumonia. The patient had lower lobe pulmonary infiltrates. Nevertheless. Infiltration was worse on the right involving the right lower lobe and part of the right midlung probably the right middle lobe. As such, the patient had been diagnosed having multilobar pneumonia. The patient was started on antibiotics and the patient is currently on a combination of Rocephin and Zithromax. He was also placed on oxygen therapy at 5 L per minute nasal cannula with a pulse ox of 94%. He is hemodynamically stable. His maintaining his own blood pressure. He is also on normal saline at rate of 50 mL an hour. Review of Systems Constitutional: Reports as per HPI Eyes: denies as per HPI, denies blurred vision, denies bulging eye, denies decreased vision, denies diplopia, denies discharge, denies dry eye, denies irritation, denies itching, denies pain, denies photophobia, denies loss of peripheral vision, denies loss of vision, denies tunnel vision/blind spots Ears: deny: decreased hearing, ear discharge, earache, tinnitus Ears, nose, mouth and throat: Reports as per HPI Cardiovascular: Reports decreased exercise tolerance, Reports dyspnea on exertion Respiratory: Reports cough, Reports dyspnea Gastrointestinal: Reports as per HPI Genitourinary: Reports as per HPI Musculoskeletal: Reports as per HPI Musculoskeletal: absent: ankle pain, ankle stiffness, ankle swelling Integumentary: Reports as per HPI Neurological: Reports as per HPI Psychiatric: Reports as per HPI, Reports sleep disturbances Endocrine: Reports as per HPI Hematologic/Lymphatic: Reports as per HPI Allergic/Immunologic: Reports as per HPI Past Medical History Past Medical History: No Reported History, Atrial Fibrillation, Atrial Flutter, Asthma, Heart Failure, COPD, Diabetes Mellitus, GERD/Reflux, Hyperlipidemia, Hypertension, Osteoarthritis (OA), Pneumonia, Prostate Disorder, Pulmonary Embolus (PE), Skin Disorder, Sleep Apnea/CPAP/BIPAP Additional Past Medical History / Comment(s): CPAP use. Neuropathy bilateral feet, dermatitis, enlarged prostate, PE found in 07/2003 while hospitalized for pneumonia, spinal stenosis, degenerative scoliosis, migraines, palpitations, "bleeds easily", hospitalized in August w/influenza-can't seem to "shake" cough. SOB and fatigue last few months. History of Any Multi-Drug Resistant Organisms: None Reported Past Surgical History: Bowel Resection, Heart Catheterization, Hernia Repair, Joint Replacement, Orthopedic Surgery, Tonsillectomy Additional Past Surgical History / Comment(s): Bilateral hip replacements, bilateral cataracts removed, hiatal hernia repair, incisional hernia repair with mesh-had bowel complication that resulted in a bowel resection, bronchoscopies, colonoscopy, ulna nerve right elbow surgery, cardioversion, ARNOL. Past Anesthesia/Blood Transfusion Reactions: Previous Problems w/ Anesthesia, Family History of Problems w/ Anesthesia Additional Past Anesthesia/Blood Transfusion Reaction / Comment(s): Problem with being "twilighted" - becomes very combative. Slow to wake up. Uncle has same symptoms with "twilight". Past Psychological History: Depression Additional Psychological History / Comment(s): . Smoking Status: Former smoker Past Alcohol Use History: None Reported Additional Past Alcohol Use History / Comment(s): Pt started smoking in 1968, quit in 1995. Past Drug Use History: None Reported - Past Family History Father Family Medical History: Cancer Additional Family Medical History / Comment(s): Prostrate cancer. Mother Family Medical History: Cancer Additional Family Medical History / Comment(s): Skin cancer. Brother(s) Family Medical History: Cancer Additional Family Medical History / Comment(s): Brother of lung cancer. Medications and Allergies Home Medications Medication Instructions Recorded Confirmed Type Pregabalin [Lyrica] 300 mg PO BID 08/18/17 05/21/21 History Sertraline [Zoloft] 100 mg PO DAILY 08/18/17 05/21/21 History Montelukast Sodium [Singulair] 10 mg PO HS 01/29/18 05/21/21 History Furosemide [Lasix] 20 mg PO BID 07/11/18 05/21/21 History Potassium Chloride [K-Tab ER] 20 meq PO BID 07/11/18 05/21/21 History Betamethasone Dipropionate 1 applic TOPICAL BID 09/02/18 05/21/21 History [Diprolene AF 0.05% Cream] Diltiazem HCl [Cartia Xt] 120 mg PO DAILY 06/28/19 05/21/21 History Fluticasone Nasal [place] [Flonase 2 spr EA NOSTRIL DAILY 06/28/19 05/21/21 History Nasal [place]] Ipratropium-Albuterol Nebulize 3 ml INHALATION RT-QID PRN 06/28/19 05/21/21 History [Duoneb 0.5 mg-3 mg/3 ml Soln] Ipratropium [place] 0.06%Nasal 2 spray EA NOSTRIL TID 06/30/19 05/21/21 History [Atrovent Nasal 0.06%] Omeprazole [PriLOSEC] 20 mg PO DAILY 12/24/20 05/21/21 History Albuterol Sulfate [Ventolin HFA] 2 puff INHALATION RT-QID PRN 05/21/21 05/21/21 History Amoxicillin/Potassium Clav 1 tab PO BID 05/21/21 05/21/21 History [Augmentin 875-125 Tablet] Apixaban [Eliquis] 5 mg PO BID 05/21/21 05/21/21 History Betamethasone Dipropionate 1 applic TOPICAL DAILY PRN 05/21/21 05/21/21 History [Betamethasone Diprop Augm Gel 0.05%] Budesonide [Pulmicort] 0.5 mg INHALATION RT-BID 05/21/21 05/21/21 History Diclofenac Sodium Gel [Voltaren 1 applic TOPICAL QID PRN 05/21/21 05/21/21 H istory Gel] Ketoconazole 2% Shampoo [Nizoral] 1 applic TOPICAL DAILY PRN 05/21/21 05/21/21 History Simvastatin [Zocor] 20 mg PO HS 05/21/21 05/21/21 History metFORMIN HCL [Glucophage] 1,000 mg PO BID 05/21/21 05/21/21 History predniSONE See Taper PO DIRECTED 05/21/21 05/21/21 History Allergies Allergy/AdvReac Type Severity Reaction Status Date / Time gemfibrozil [From Lopid] Allergy Unknown Verified 05/21/21 14:19 aspirin AdvReac Abdominal Verified 05/21/21 14:19 Pain fentanyl AdvReac Hallucinati Verified 05/21/21 14:19 ons moxifloxacin [From Avelox] AdvReac Unknown Verified 05/21/21 14:19 Physical Exam Vitals: Vital Signs Temp Pulse Pulse Resp BP BP Pulse Ox 05/22/21 15:32 82 05/22/21 15:00 70 22 114/71 94 L 05/22/21 12:09 68 20 134/82 93 L 05/22/21 11:45 84 05/22/21 11:33 88 05/22/21 08:02 86 05/22/21 07:48 84 05/22/21 02:29 98.0 F 65 18 117/80 93 L 05/22/21 02:00 66 18 94 L 05/22/21 00:00 98.2 F 73 16 130/84 94 L 05/21/21 21:20 80 05/21/21 21:12 92 L 05/21/21 21:07 81 05/21/21 19:54 82 16 141/94 92 L Intake and Output 05/22/21 05/22/21 05/22/21 06:59 14:59 22:59 Output Total 500 Balance -500 Output: Urine 500 Other: Weight 136.078 kg Patient is lying in the bed comfortably, no acute distress, awake alert and oriented. obese. The patient is currently reported about on 4 L nasal cannula HEENT: Normocephalic. Neck is supple. Pupils reactive. Nostrils clear. Oral cavity is moist. Neck reveals no JVD, carotid bruits, or thyromegaly. CHEST EXAMINATION: Trachea is central. Symmetrical expansion. Bilateral Diffuse wheezing and rhonchi.. CARDIAC: Normal S1, S2 with no gallops. No murmurs ABDOMEN: Soft. Bowel sounds normal. No organomegaly. No abdominal bruits. Extremities: trace edema. No clubbing or cyanosis Neurologically awake, alert, oriented x3 with well-coordinated movements. No focal deficits noted Skin: No rash or skin lesions. Psychiatric: Cooperative. Nonsuicidal Musculoskeletal: No joint swelling or deformity. Normal range of motion. Results - Laboratory Findings CBC and BMP: 05/22/21 07:40 05/22/21 07:40 PT/INR, D-dimer PT 10.6 sec (9.0-12.0) 05/21/21 12:34 INR 1.0 (<1.2) 05/21/21 12:34 D-Dimer 0.31 mg/L FEU (<0.60) 05/21/21 12:34 Abnormal lab findings: Abnormal Labs 05/21/21 05/21/21 05/22/21 12:34 12:34 07:40 WBC 12.0 H MCHC 31.6 L Plt Count 134 L 138 L MPV 12.3 H Immature Gran # 0.05 H Neutrophils # 10.7 H Lymphocytes # 0.4 L 0.40 L Monocytes # 0.14 L Eosinophils # 0 L Creatinine Glucose 188 H Procalcitonin 05/22/21 05/22/21 07:40 07:40 WBC MCHC Plt Count MPV Immature Gran # Neutrophils # Lymphocytes # Monocytes # Eosinophils # Creatinine 0.55 L Glucose 203 H Procalcitonin 0.18 H - Diagnostic Findings Chest x-ray: image reviewed Assessment and Plan Plan: 1 acute multilobar pneumonia right more than left with secondary shortness of b reath. The patient was receiving Augmentin and a prednisone burst taper and outpatient basis regarding pneumonia/COPD exacerbation. Presented to the hospital because of worsening shortness of breath and hypoxemia. Currently on 4 L nasal cannula 2 acute hypoxic respiratory failure secondary to above 3 acute COPD exacerbation secondary to above 4 severe obstructive sleep apnea AHI of 110 and the patient is currently on CPAP therapy at a pressure of 16 cm of water 5 obesity with a BMI of 38.5 6 history of atrial fibrillation/flutter post ARNOL cardioversion and the patient has been maintained on a combination of Cardizem and Eliquis 7 diabetes mellitus type 2 8 hypertension 9 hyperlipidemia 10 previous history of pulmonary embolism, the patient continues to be on anticoagulation 11 degenerative arthritis 12 BPH 13 neuropathy involving lower extremities Plan Sputum Gram stain and culture and blood culture pro-calcitonin level Legionella urine antigen IV Rocephin and Zithromax IV Solu-Medrol Continue bronchodilators Oxygen therapy to maintain saturation above 90% COVID 19 setting of a negative and the patient is vaccinated Monitor the blood sugars Resume all medications including Eliquis We'll continue to follow.
[2021-05-22] MEDS: ATORVASTATIN 10 MG TAB PO SCH (22:22)
[2021-05-22] MEDS: MONTELUKAST 10 MG TAB PO SCH (22:22)
--- NOTE | 2021-05-22 23:54 | P.PN ---
Subjective Progress Note Date: 05/22/21 Patient is a 66-year-old male with a known history of atrial fibrillation/flutter status post cardioversion/ARNOL on anticoagulation currently with Eliquis, COPD, obstructive sleep apnea on CPAP at home, obesity with a BMI 38.5, hypertension, hyperlipidemia, diabetes type 2, history of PE, bilateral lower extremity feet neuropathy, history of pneumonia and multiple other medical problems presents to ER with complaints of worsening shortness of breath for the past 5 to 6 days. Patient was also having cough but unable to bring up any sputum. Patient did have subjective fever and chills at home. Patient has been monitoring his oxygen saturation at home and was found to be as low as at 68%. Otherwise patient denied any complaints of chest pain. No nausea vomiting or abdominal pain or diarrhea. Patient states that. He fever at 102F at home. Patient is fully vaccinated and also took booster dose in March 2021. Patient was seen by his primary care physician yesterday and was started on Augmentin and steroids. Patient presents to ER due to worsening symptoms. Patient received a dose of IV Solu-Medrol 125 mg and azithromycin ceftriaxone in the ER. Chest x-ray showed multifocal pneumonia. EKG showed normal sinus rhythm. Laboratory data showed WBC 12.0 hemoglobin 13.9 and platelets 134 neutrophils 10.7 lymphocytes 0.4 D-dimer 0.31 Sodium 137 potassium 4.5 chloride 100 bicarb 27 BUN 15 and creatinine 0.66 blood sugar 188 lactic acid 1.9 Liver enzymes are not elevated. Troponin x1 - COVID-19 PCR not detected. 05/22/2021 Patient is currently sitting on the side of the bed. Still complains of shortness of breath. Bilateral diffuse rhonchi and coarse breath sounds overall. Wheezing improved compared to yesterday. Patient has been afebrile. Currently requiring oxygen at 4 L via nasal cannula. No complaints of chest pain. No nausea vomiting abdominal pain or diarrhea. Laboratory data showed WBC 6.4 hemoglobin 13.1 platelets 138 lymphocytes 0.4 COVID-19 negative. Sodium 139 potassium 4.2 chloride 102 BUN 17 and creatinine 0.55 blood sugar is 203 and procalcitonin level is 0.18. Patient is being current on IV steroids, duo nebs and antibiotics involve ceftriaxone azithromycin. Pulmonary is on board. Current medications reviewed. Objective - Vital Signs Vital signs: Vital Signs Temp 98.0 F 05/22/21 02:29 Pulse 63 05/22/21 20:55 Resp 22 05/22/21 20:55 BP 104/63 05/22/21 20:55 Pulse Ox 94 L 05/22/21 20:55 Intake & Output 05/22/21 05/22/21 05/23/21 06:59 18:59 06:59 Output Total 500 Balance -500 Weight 136.078 kg Output: Urine 500 - Exam PHYSICAL EXAMINATION: Patient is lying in the bed comfortably, no acute distress, awake alert and oriented. obese. HEENT: Normocephalic. Neck is supple. Pupils reactive. Nostrils clear. Oral cavity is moist. Neck reveals no JVD, carotid bruits, or thyromegaly. CHEST EXAMINATION: Trachea is central. Symmetrical expansion. Bilateral Diffuse wheezing and rhonchi.. CARDIAC: Normal S1, S2 with no gallops. No murmurs ABDOMEN: Soft. Bowel sounds normal. No organomegaly. No abdominal bruits. Extremities: trace edema. No clubbing or cyanosis Neurologically awake, alert, oriented x3 with well-coordinated movements. No focal deficits noted Skin: No rash or skin lesions. Psychiatric: Cooperative. Nonsuicidal Musculoskeletal: No joint swelling or deformity. Normal range of motion. - Labs CBC & Chem 7: 05/22/21 07:40 05/22/21 07:40 Labs: Abnormal Lab Results - Last 24 Hours (Table) 05/22/21 05/22/21 05/22/21 Range/Units 07:40 07:40 07:40 MCHC 31.6 L (32.0-37.0) g/dL Plt Count 138 L (140-440) X 10*3/uL MPV 12.3 H (9.5-12.2) fL Immature Gran # 0.05 H (0.00-0.04) X 10*3/uL Lymphocytes # 0.40 L (0.90-5.00) X 10*3/uL Monocytes # 0.14 L (0.20-1.00) X 10*3/uL Eosinophils # 0 L (0.04-0.35) X 10*3/uL Creatinine 0.55 L (0.66-1.25) mg/dL Glucose 203 H (74-99) mg/dL Procalcitonin 0.18 H (0.02-0.09) ng/mL Assessment and Plan Assessment: Acute hypoxic respiratory failure secondary to COPD and pneumonia Acute COPD exacerbation Multifocal pneumonia. COVID-19 PCR negative. Paroxysmal atrial fibrillation/flutter on anticoagulation with Eliquis at home. History of ARNOL/cardioversion. Obesity with a BMI 38.5 Mild pulmonary hypertension Bicuspid aortic valve with mild aortic stenosis. History of cardiac catheterization on 12/28/2020 showed mild nonobstructive CAD. Hypertension Hyperlipidemia GERD Osteoarthritis BPH Diabetes type 2 [id number] Obstructive sleep apnea on CPAP at home Bilateral feet peripheral neuropathy Previous history of smoking Depression Degenerative scoliosis Stable migraine headaches DVT prophylaxis patient is already on Eliquis Plan: Patient will be continued IV antibiotics with ceftriaxone and azithromycin. oxygen supplementation. Patient will be continued Solu-Medrol 60 mg every 6 hourly and duo nebs. Continue with home medications including Cardizem. Continue with anticoagulation with Eliquis. Pulmonary is folowing. Urine Legionella antigen was sent. Continue to follow closely. Prognosis guarded at this time. Time with Patient: Greater than 30
[2021-05-23] MEDS: methylPREDNISolone SOD SUCCI 125 MG/2 ML VIAL IV SCH ×4 (04:45→21:13)
[2021-05-23] MEDS: traMADol 50 MG TAB PO SCH (06:22)
[2021-05-23] MEDS: SODIUM CHLORIDE 0.9% 1,000 ML IV SCH ×2 (06:26→21:15)
[2021-05-23] MEDS: SERTRALINE 100 MG TAB PO SCH (08:20)
[2021-05-23] MEDS: FUROSEMIDE 20 MG TAB PO SCH ×2 (08:20→13:51)
[2021-05-23] MEDS: PREGABALIN 100 MG CAP PO SCH ×2 (08:20→21:13)
[2021-05-23] MEDS: DILTIAZEM CD 120 MG CAP.ER.24H PO SCH (08:20)
[2021-05-23] MEDS: PANTOPRAZOLE 40 MG TABLET PO SCH (08:20)
[2021-05-23] MEDS: APIXABAN 5 MG TAB PO SCH ×2 (08:20→21:13)
[2021-05-23] MEDS: POTASSIUM CHLORIDE ER 20 MEQ TAB.ER PO SCH ×2 (08:20→13:51)
[2021-05-23 08:53] LABS: Basophils # (A) 0.01 X 10*3/uL (0.00-0.10); Basophils % (A) 0.1 %; Eosinophils # (A) 0 X 10*3/uL (0.04-0.35); Eosinophils % (A) 0 %; HCT 38.5 % (39.6-50.0); HGB 12.1 g/dL (13.0-17.0); Lymphocytes # (A) 0.65 X 10*3/uL (0.90-5.00); Lymphocytes % (A) 7.2 %; MCHC 31.4 g/dL (32.0-37.0); MCV 95.3 fL (80.0-97.0); Mean Platelet Volume 12.1 fL (9.5-12.2); Monocytes # (A) 0.44 X 10*3/uL (0.20-1.00); Monocytes % (A) 4.9 %; Neutrophils # (A) 7.86 X 10*3/uL (1.80-7.70); Platelet Count 148 X 10*3/uL (140-440); RBC 4.04 X 10*6/uL (4.40-5.60); WBC 9.03 X 10*3/uL (4.50-10.00)
[2021-05-23] MEDS: AZITHROMYCIN 500 MG TAB PO SCH (08:56)
[2021-05-23] MEDS: BUDESONIDE 0.5 MG/2 ML NEBU INHALATION SCH ×2 (09:00→19:24)
[2021-05-23] MEDS: IPRATROPIUM-ALBUTEROL 3 ML NEB INHALATION SCH ×4 (09:00→19:24)
[2021-05-23 09:46] LABS: African American GFR (CKD) 112.4 (60.0-200.0); Anion Gap 10.5 mmol/L (10.00-18.00); BUN/Creat Ratio 27.43 Ratio (12.00-20.00); Blood Urea Nitrogen 19.2 mg/dL (9.0-27.0); Calcium 9.3 mg/dL (8.7-10.3); Carbon Dioxide 25.5 mmol/L (20.0-27.5); Potassium 4.5 mmol/L (3.5-5.5)
[2021-05-23] MEDS ORDERED: traMADol 50 MG TAB PO PRN (11:20)
[2021-05-23] MEDS ORDERED: LEVOFLOXACIN 500 MG TAB PO SCH (16:00)
[2021-05-23 16:33] LABS: Glucose,Whole Blood 283 mg/dL (75-99)
[2021-05-23] MEDS: INSULIN ASPART (NovoLOG) 100 UNIT/ML VIAL SQ SCH ×2 (16:58→21:15)
--- NOTE | 2021-05-23 18:15 | P.PN ---
Subjective Progress Note Date: 05/23/21 Principal diagnosis: Dyspnea 66-year-old new patient presented to the hospital because of shortness of breath, fatigue, chills and cough a few days duration. Apparently, the patient was checked and is pulse oxing at home and he noted that his pulse ox is running low and the number was as low as 68%. He was having also exertional dyspnea. Denied having any chest pain. No nausea. No vomiting and no diarrhea. He reported fever of 100F. He has been vaccinated to COVID 19 and he is also received a booster shot in March 2021. The patient tested negative for COVID 19 during this emergency department visit. Noted the patient has also been vaccinated for this flu/influenza. Apparently had contacted his primary care physician. He was started on a combination of Augmentin and steroids on outpatient basis. He stated that this was a 60 of treatment he was not impro ving and for that reason he decided to come into the hospital. He is known to have multiple medical problems including history of atrial fibrillation/flutter and the patient undergone previous ARNOL cardioversion followed by the coagulation with Mian. He is also known to have COPD, obstructive sleep apnea maintained on CPAP therapy at home and he carries a body mass index of 38.5. He has hyper tension and hyperlipidemia and diabetes mellitus type 2 and he has previous history of pulmonary embolism and peripheral neuropathy involving the lower extremity is bilaterally. During this current hospital stay, the white cell count was at 12 with a hemoglobin of 13.9, d-dimer was 0.31, sodium was 137, BUN was 50 with a creatinine of 0.6, lactic acid level was at 1.9. LFTs were normal, troponin was negative. COVID 19 by PCR was negative. EKG was sinus rhythm. Chest x-ray showed evidence of bilateral pneumonia. The patient had lower lobe pulmonary infiltrates. Nevertheless. Infiltration was worse on the right involving the right lower lobe and part of the right midlung probably the right middle lobe. As such, the patient had been diagnosed having multilobar pneumonia. The patient was started on antibiotics and the patient is currently on a combination of Rocephin and Zithromax. He was also placed on oxygen therapy at 5 L per minute nasal cannula with a pulse ox of 94%. He is hemodynamically stable. His maintaining his own blood pressure. He is also on normal saline at rate of 50 mL an hour. On 05/23/2021 patient seen in follow-up on the surgical floor. Patient is cu rrently on 4 L of oxygen, pulse ox is 96%, he states he is doing better, breathing easier, he is refusing his IV Rocephin stating that is giving him diarrhea. He remains on oral azithromycin, he has had no fever or chills, no compressive chest pain, no hemoptysis. he has been afebrile. Vital signs have been stable. His chest x-ray shows mild interval worsening in the lung infiltrates particularly in the right mid lower lung zone. Today's labs have been reviewed, white blood cell count is 9.03, hemoglobin of 12.1, electrolytes and renal profile were unremarkable, her calcium level was low at 0.15, Legionella urine antigen was negative. Has not been able to produce a sputum specimen for culture. he is requesting to be switched over to a different antibiotic that is not in a cause as much diarrhea. We will start patient on Levaquin, in addition patient continues on IV steroids with Solu-Medrol 60 mg every 6 hours and nebulized bronchodilators. Patient patient continues on Eliquis for previous history of pulmonary embolism Objective - Vital Signs Vital signs: Vital Signs Temp 97.5 F L 05/23/21 14:00 Pulse 70 05/23/21 15:53 Resp 20 05/23/21 14:00 BP 133/76 05/23/21 14:00 Pulse Ox 96 05/23/21 14:00 - Exam GENERAL EXAM: Alert, very pleasant, 66-year-old white male, currently on 4 L of oxygen pulse ox of 96%, comfortable in no apparent distress. HEAD: Normocephalic/atraumatic. EYES: Normal reaction of pupils, equal size. Conjunctiva pink, sclera white. NOSE: Clear with pink turbinates. THROAT: No erythema or exudates. NECK: No masses, no JVD, no thyroid enlargement, no adenopathy. CHEST: No chest wall deformity. Symmetrical expansion. LUNGS: Equal air entry with no crackles, wheeze, rhonchi or dullness. CVS: Regular rate and rhythm, normal S1 and S2, no gallops, no murmurs, no rubs ABDOMEN: Soft, nontender. No hepatosplenomegaly, normal bowel sounds, no guarding or rigidity. EXTREMITIES: No clubbing, no edema, no cyanosis, 2+ pulses and upper and lower extremities. MUSCULOSKELETAL: Muscle strength and tone normal. SPINE: No scoliosis or deformity SKIN: No rashes CENTRAL NERVOUS SYSTEM: Alert and oriented -3. No focal deficits, tone is normal in all 4 extremities. PSYCHIATRIC: Alert and oriented -3. Appropriate affect. Intact judgment and insight. - Labs CBC & Chem 7: 05/23/21 05:56 05/23/21 06:00 Labs: Abnormal Lab Results - Last 24 Hours (Table) 05/22/21 05/23/21 05/23/21 Range/Units 17:12 05:56 06:00 RBC 4.04 L (4.40-5.60) X 10*6/uL Hgb 12.1 L (13.0-17.0) g/dL Hct 38.5 L (39.6-50.0) % MCHC 31.4 L (32.0-37.0) g/dL Immature Gran # 0.07 H (0.00-0.04) X 10*3/uL Neutrophils # 7.86 H (1.80-7.70) X 10*3/uL Lymphocytes # 0.65 L (0.90-5.00) X 10*3/uL Eosinophils # 0 L (0.04-0.35) X 10*3/uL BUN/Creatinine Ratio 27.43 H (12.00-20.00) Ratio Glucose 265 H (70-110) mg/dL POC Glucose (mg/dL) (75-99) mg/dL Procalcitonin 0.15 H (0.02-0.09) ng/mL 05/23/21 Range/Units 16:32 RBC (4.40-5.60) X 10*6/uL Hgb (13.0-17.0) g/dL Hct (39.6-50.0) % MCHC (32.0-37.0) g/dL Immature Gran # (0.00-0.04) X 10*3/uL Neutrophils # (1.80-7.70) X 10*3/uL Lymphocytes # (0.90-5.00) X 10*3/uL Eosinophils # (0.04-0.35) X 10*3/uL BUN/Creatinine Ratio (12.00-20.00) Ratio Glucose (70-110) mg/dL POC Glucose (mg/dL) 283 H (75-99) mg/dL Procalcitonin (0.02-0.09) ng/mL Assessment and Plan Plan: Assessment: #1. Acute multilobar pneumonia right more than left with significant shortness of breath. Patient was receiving Augmentin and prednisone burst taper on an outpatient basis however presented to the hospital with worsening shortness of breath and hypoxia. Currently on 4 L of oxygen. COVID-19 PCR was negative #2. Acute hypoxic respiratory failure secondary to the above #3. Acute exacerbation of COPD #4. Severe obstructive sleep apnea with AHI 110 on CPAP therapy at a pressure of 16 cm water #5. Obesity with a BMI of 38.5 kg/m #6. History of atrial fibrillation/flutter post-ARNOL cardioversion and patient is maintained on oral Cardizem and Eliquis #7. Diabetes mellitus type 2 #8. Hypertension #9. Hyperlipidemia #10. Previous history of pulmonary embolism, and patient continues on Eliquis which is also for history of atrial fibrillation #11. Degenerative arthritis #12. BPH #13. Neuropathy involving bilateral lower extremities Plan: We'll switch antibiotic coverage to Levaquin 500 mg daily No fever or chills No worsening dyspnea Increase activity as tolerated Weaning FiO2 to maintain O2 saturations at or above 90% Patient is asking about possible discharge home tomorrow If remains stable and continues to improve we'll consider discharge home tomorrow to finish outpatient course of Levaquin I performed a history & physical examination of the patient and discussed their management with my nurse practitioner, Leena Antonio. I reviewed the nurse practitioner's note and agree with the documented findings and plan of care. Lung sounds are positive for dim breath sounds throughout the lung breen. The findings and the impression was discussed with the patient. I attest to the documentation by the nurse practitioner. Time with Patient: Less than 30
[2021-05-23 20:44] LABS: Glucose,Whole Blood 230 mg/dL (75-99)
[2021-05-23] MEDS: MONTELUKAST 10 MG TAB PO SCH (21:12)
[2021-05-23] MEDS: ATORVASTATIN 10 MG TAB PO SCH (21:13)
[2021-05-23] MEDS ORDERED: INSULIN DETEMIR (LEVEMIR) 100 UNIT/ML SYR SQ ONE (23:15)
[2021-05-24] MEDS: methylPREDNISolone SOD SUCCI 125 MG/2 ML VIAL IV SCH ×2 (04:00→09:54)
[2021-05-24] MEDS: POTASSIUM CHLORIDE ER 20 MEQ TAB.ER PO SCH ×2 (05:44→13:00)
[2021-05-24] MEDS: FUROSEMIDE 20 MG TAB PO SCH ×2 (05:44→13:00)
[2021-05-24 07:05] LABS: Glucose,Whole Blood 228 mg/dL (75-99)
[2021-05-24] MEDS: PANTOPRAZOLE 40 MG TABLET PO SCH (07:26)
[2021-05-24] MEDS: SERTRALINE 100 MG TAB PO SCH (07:26)
[2021-05-24] MEDS: INSULIN ASPART (NovoLOG) 100 UNIT/ML VIAL SQ SCH ×2 (07:26→12:55)
[2021-05-24] MEDS: APIXABAN 5 MG TAB PO SCH (07:26)
[2021-05-24] MEDS: PREGABALIN 100 MG CAP PO SCH (07:26)
[2021-05-24] MEDS: DILTIAZEM CD 120 MG CAP.ER.24H PO SCH (07:27)
[2021-05-24 08:13] VITALS: RESP 20
[2021-05-24] MEDS: IPRATROPIUM-ALBUTEROL 3 ML NEB INHALATION SCH ×2 (08:24→13:04)
[2021-05-24] MEDS: BUDESONIDE 0.5 MG/2 ML NEBU INHALATION SCH (08:25)
[2021-05-24 08:26] VITALS: BP 149/84; TEMP 97.5
[2021-05-24 09:33] LABS: Basophils # (A) 0.02 X 10*3/uL (0.00-0.10); Basophils % (A) 0.2 %; Eosinophils # (A) 0 X 10*3/uL (0.04-0.35); Eosinophils % (A) 0 %; HGB 13.1 g/dL (13.0-17.0); Lymphocytes # (A) 0.64 X 10*3/uL (0.90-5.00); Lymphocytes % (A) 7.7 %; MCH 30.3 pg (27.0-32.0); MCHC 32.8 g/dL (32.0-37.0); MCV 92.6 fL (80.0-97.0); Mean Platelet Volume 12.2 fL (9.5-12.2); Monocytes # (A) 0.22 X 10*3/uL (0.20-1.00); Monocytes % (A) 2.7 %; Neutrophils # (A) 7.27 X 10*3/uL (1.80-7.70); Neutrophils % (A) 87.8 %; Platelet Count 162 X 10*3/uL (140-440); RBC 4.32 X 10*6/uL (4.40-5.60); RDW 13.5 % (11.5-14.5); WBC 8.28 X 10*3/uL (4.50-10.00)
--- NOTE | 2021-05-24 10:57 | P.PN ---
Subjective Progress Note Date: 05/24/21 Principal diagnosis: Dyspnea 66-year-old new patient presented to the hospital because of shortness of breath, fatigue, chills and cough a few days duration. Apparently, the patient was checked and is pulse oxing at home and he noted that his pulse ox is running low and the number was as low as 68%. He was having also exertional dyspnea. Denied having any chest pain. No nausea. No vomiting and no diarrhea. He reported fever of 100F. He has been vaccinated to COVID 19 and he is also received a booster shot in March 2021. The patient tested negative for COVID 19 during this emergency department visit. Noted the patient has also been vaccinated for this flu/influenza. Apparently had contacted his primary care physician. He was started on a combination of Augmentin and steroids on outpatient basis. He stated that this was a 60 of treatment he was not impro ving and for that reason he decided to come into the hospital. He is known to have multiple medical problems including history of atrial fibrillation/flutter and the patient undergone previous ARNOL cardioversion followed by the coagulation with Mian. He is also known to have COPD, obstructive sleep apnea maintained on CPAP therapy at home and he carries a body mass index of 38.5. He has hyper tension and hyperlipidemia and diabetes mellitus type 2 and he has previous history of pulmonary embolism and peripheral neuropathy involving the lower extremity is bilaterally. During this current hospital stay, the white cell count was at 12 with a hemoglobin of 13.9, d-dimer was 0.31, sodium was 137, BUN was 50 with a creatinine of 0.6, lactic acid level was at 1.9. LFTs were normal, troponin was negative. COVID 19 by PCR was negative. EKG was sinus rhythm. Chest x-ray showed evidence of bilateral pneumonia. The patient had lower lobe pulmonary infiltrates. Nevertheless. Infiltration was worse on the right involving the right lower lobe and part of the right midlung probably the right middle lobe. As such, the patient had been diagnosed having multilobar pneumonia. The patient was started on antibiotics and the patient is currently on a combination of Rocephin and Zithromax. He was also placed on oxygen therapy at 5 L per minute nasal cannula with a pulse ox of 94%. He is hemodynamically stable. His maintaining his own blood pressure. He is also on normal saline at rate of 50 mL an hour. On 05/23/2021 patient seen in follow-up on the surgical floor. Patient is cu rrently on 4 L of oxygen, pulse ox is 96%, he states he is doing better, breathing easier, he is refusing his IV Rocephin stating that is giving him diarrhea. He remains on oral azithromycin, he has had no fever or chills, no compressive chest pain, no hemoptysis. he has been afebrile. Vital signs have been stable. His chest x-ray shows mild interval worsening in the lung infiltrates particularly in the right mid lower lung zone. Today's labs have been reviewed, white blood cell count is 9.03, hemoglobin of 12.1, electrolytes and renal profile were unremarkable, her calcium level was low at 0.15, Legionella urine antigen was negative. Has not been able to produce a sputum specimen for culture. he is requesting to be switched over to a different antibiotic that is not in a cause as much diarrhea. We will start patient on Levaquin, in addition patient continues on IV steroids with Solu-Medrol 60 mg every 6 hours and nebulized bronchodilators. Patient patient continues on Eliquis for previous history of pulmonary embolism On 05/24/2021 patient seen in follow-up on medical surgical floor, he is awake and alert, in no acute distress, she is sitting up on the edge of the bed, he is breathing much easier, no worsening dyspnea or cough, he is on 4 L of oxygen pulse ox is 94%, his been afebrile, vital signs have been stable. No complaint of chest discomfort, no wheezing, mild crackles at bilateral bases. Yesterday we switched him from azithromycin and Rocephin to Levaquin. Today's labs have been reviewed, white blood cell count is 8.28, hemoglobin is 13.1 and he is stil l pending for today, his electrolytes from yesterday were within normal limits, renal profile was also within normal limits, his pro calcitonin level has been negative 2, patient tested negative for coronavirus per PCR test, Legionella urine antigen has also been negative, patient is tolerating ambulation, he would like to go home today. He is a patient of Dr. Srivastava in the pulmonary clinic. Objective - Vital Signs Vital signs: Vital Signs Temp 97.5 F L 05/24/21 08:00 Pulse 68 05/24/21 08:59 Resp 20 05/24/21 08:00 BP 149/84 05/24/21 08:00 Pulse Ox 94 L 05/24/21 08:00 Intake & Output 05/23/21 05/24/21 05/24/21 18:59 06:59 18:59 Intake Total 800 200 Balance 800 200 Intake: Oral 800 200 Other: # Voids 6 2 # Bowel Movements 1 - Exam GENERAL EXAM: Alert, very pleasant, 66-year-old white male, currently on 4 L of oxygen pulse ox of 96%, comfortable in no apparent distress. HEAD: Normocephalic/atraumatic. EYES: Normal reaction of pupils, equal size. Conjunctiva pink, sclera white. NOSE: Clear with pink turbinates. THROAT: No erythema or exudates. NECK: No masses, no JVD, no thyroid enlargement, no adenopathy. CHEST: No chest wall deformity. Symmetrical expansion. LUNGS: Equal air entry with basilar crackles, but no wheeze, rhonchi or dullness. CVS: Regular rate and rhythm, normal S1 and S2, no gallops, no murmurs, no rubs ABDOMEN: Soft, nontender. No hepatosplenomegaly, normal bowel sounds, no guarding or rigidity. EXTREMITIES: No clubbing, no edema, no cyanosis, 2+ pulses and upper and lower extremities. MUSCULOSKELETAL: Muscle strength and tone normal. SPINE: No scoliosis or deformity SKIN: No rashes CENTRAL NERVOUS SYSTEM: Alert and oriented -3. No focal deficits, tone is normal in all 4 extremities. PSYCHIATRIC: Alert and oriented -3. Appropriate affect. Intact judgment and insight. - Labs CBC & Chem 7: 05/24/21 06:32 05/23/21 06:00 Labs: Abnormal Lab Results - Last 24 Hours (Table) 05/23/21 05/23/21 05/24/21 Range/Units 16:32 20:42 06:32 RBC 4.32 L (4.40-5.60) X 10*6/uL Immature Gran # 0.13 H (0.00-0.04) X 10*3/uL Lymphocytes # 0.64 L (0.90-5.00) X 10*3/uL Eosinophils # 0 L (0.04-0.35) X 10*3/uL POC Glucose (mg/dL) 283 H 230 H (75-99) mg/dL 05/24/21 Range/Units 07:03 RBC (4.40-5.60) X 10*6/uL Immature Gran # (0.00-0.04) X 10*3/uL Lymphocytes # (0.90-5.00) X 10*3/uL Eosinophils # (0.04-0.35) X 10*3/uL POC Glucose (mg/dL) 228 H (75-99) mg/dL Microbiology - Last 24 Hours (Table) 05/22/21 17:12 Blood Culture - Preliminary Blood No Growth after 24 hours 05/22/21 17:12 Blood Culture - Preliminary Blood No Growth after 24 hours Assessment and Plan Plan: Assessment: #1. Acute multilobar pneumonia right more than left with significant shortness of breath. Patient was receiving Augmentin and prednisone burst taper on an outpatient basis however presented to the hospital with worsening shortness of breath and hypoxia. Currently on 4 L of oxygen. COVID-19 PCR was negative #2. Acute hypoxic respiratory failure secondary to the above #3. Acute exacerbation of COPD #4. Severe obstructive sleep apnea with AHI 110 on CPAP therapy at a pressure of 16 cm water #5. Obesity with a BMI of 38.5 kg/m #6. History of atrial fibrillation/flutter post-ARNOL cardioversion and patient is maintained on oral Cardizem and Eliquis #7. Diabetes mellitus type 2 #8. Hypertension #9. Hyperlipidemia #10. Previous history of pulmonary embolism, and patient continues on Eliquis which is also for history of atrial fibrillation #11. Degenerative arthritis #12. BPH #13. Neuropathy involving bilateral lower extremities Plan: Vitall signs have remained stable No acute events overnight No fever or chills No worsening dyspnea Patient qualifies for home oxygen as he tested 87% on room air He wants to go home today Patient is stable for discharge home from pulmonary perspective on 5 more days of oral Levaquin 500 mg daily He can finish prednisone taper that she was given for outpatient treatment and he was started on 05/21/2021 Patient has a DuoNeb nebulized treatments at home, he is asking for prescription for Pulmicort 0.5 mg twice daily which we will send Outpatient follow-up with Dr. Srivastava in the office in 7 days I performed a history & physical examination of the patient and discussed their management with my nurse practitioner, Leena Antonio. I reviewed the nurse practitioner's note and agree with the documented findings and plan of care. Lung sounds are positive for dim breath sounds throughout the lung breen. The findings and the impression was discussed with the patient. I attest to the documentation by the nurse practitioner. Time with Patient: Less than 30
--- NOTE | 2021-05-24 11:18 | P.PN ---
Subjective Progress Note Date: 05/23/21 Patient is a 66-year-old male with a known history of atrial fibrillation/flutter status post cardioversion/ARNOL on anticoagulation currently with Eliquis, COPD, obstructive sleep apnea on CPAP at home, obesity with a BMI 38.5, hypertension, hyperlipidemia, diabetes type 2, history of PE, bilateral lower extremity feet neuropathy, history of pneumonia and multiple other medical problems presents to ER with complaints of worsening shortness of breath for the past 5 to 6 days. Patient was also having cough but unable to bring up any sputum. Patient did have subjective fever and chills at home. Patient has been monitoring his oxygen saturation at home and was found to be as low as at 68%. Otherwise patient denied any complaints of chest pain. No nausea vomiting or abdominal pain or diarrhea. Patient states that. He fever at 102F at home. Patient is fully vaccinated and also took booster dose in March 2021. Patient was seen by his primary care physician yesterday and was started on Augmentin and steroids. Patient presents to ER due to worsening symptoms. Patient received a dose of IV Solu-Medrol 125 mg and azithromycin ceftriaxone in the ER. Chest x-ray showed multifocal pneumonia. EKG showed normal sinus rhythm. Laboratory data showed WBC 12.0 hemoglobin 13.9 and platelets 134 neutrophils 10.7 lymphocytes 0.4 D-dimer 0.31 Sodium 137 potassium 4.5 chloride 100 bicarb 27 BUN 15 and creatinine 0.66 blood sugar 188 lactic acid 1.9 Liver enzymes are not elevated. Troponin x1 - COVID-19 PCR not detected. 05/22/2021 Patient is currently sitting on the side of the bed. Still complains of shortness of breath. Bilateral diffuse rhonchi and coarse breath sounds overall. Wheezing improved compared to yesterday. Patient has been afebrile. Currently requiring oxygen at 4 L via nasal cannula. No complaints of chest pain. No nausea vomiting abdominal pain or diarrhea. Laboratory data showed WBC 6.4 hemoglobin 13.1 platelets 138 lymphocytes 0.4 COVID-19 negative. Sodium 139 potassium 4.2 chloride 102 BUN 17 and creatinine 0.55 blood sugar is 203 and procalcitonin level is 0.18. Patient is being current on IV steroids, duo nebs and antibiotics involve ceftriaxone azithromycin. Pulmonary is on board. 05/23/2021 Patient is in the medical floor. Shortness of breath is getting better. Sitting on the side of the bed. Requiring oxygen at 4 L via nasal cannula. Patient is being continued on ceftriaxone and azithromycin. Patient refuses to get IV line. Denied any complaints of chest pain. No fever no chills. Controlled on IV steroids and DuoNeb's. Patient is ELIQUIS DUE TO PREVIOUS HISTORY OF PE. PULMONARY IS ON BOARD. CLINICALLY IMPROVING. LABORATORY DATA SHOWED WBC 9.0 HEMOGLOBIN 12.1 AND PLATELETS 148 BUN 19.2 AND CREATININE 0.7. Current medications reviewed. Objective - Vital Signs Vital signs: Vital Signs Temp 98.2 F 05/23/21 19:06 Pulse 72 05/23/21 19:38 Resp 17 05/23/21 19:06 BP 131/70 05/23/21 19:06 Pulse Ox 94 L 05/23/21 19:06 Intake & Output 05/23/21 05/23/21 05/24/21 06:59 18:59 06:59 Intake Total 800 200 Balance 800 200 Intake: Oral 800 200 Other: # Voids 6 # Bowel Movements 1 - Exam PHYSICAL EXAMINATION: Patient is lying in the bed comfortably, no acute distress, awake alert and oriented. obese. HEENT: Normocephalic. Neck is supple. Pupils reactive. Nostrils clear. Oral cavity is moist. Neck reveals no JVD, carotid bruits, or thyromegaly. CHEST EXAMINATION: Trachea is central. Symmetrical expansion. Bilateral Diffuse wheezing and no rhonchi.. CARDIAC: Normal S1, S2 with no gallops. No murmurs ABDOMEN: Soft. Bowel sounds normal. No organomegaly. No abdominal bruits. Extremities: trace edema. No clubbing or cyanosis Neurologically awake, alert, oriented x3 with well-coordinated movements. No focal deficits noted Skin: No rash or skin lesions. Psychiatric: Cooperative. Nonsuicidal Musculoskeletal: No joint swelling or deformity. Normal range of motion. - Labs CBC & Chem 7: 05/24/21 06:32 05/23/21 06:00 Labs: Abnormal Lab Results - Last 24 Hours (Table) 05/22/21 05/23/21 05/23/21 Range/Units 17:12 05:56 06:00 RBC 4.04 L (4.40-5.60) X 10*6/uL Hgb 12.1 L (13.0-17.0) g/dL Hct 38.5 L (39.6-50.0) % MCHC 31.4 L (32.0-37.0) g/dL Immature Gran # 0.07 H (0.00-0.04) X 10*3/uL Neutrophils # 7.86 H (1.80-7.70) X 10*3/uL Lymphocytes # 0.65 L (0.90-5.00) X 10*3/uL Eosinophils # 0 L (0.04-0.35) X 10*3/uL BUN/Creatinine Ratio 27.43 H (12.00-20.00) Ratio Glucose 265 H (70-110) mg/dL POC Glucose (mg/dL) (75-99) mg/dL Procalcitonin 0.15 H (0.02-0.09) ng/mL 05/23/21 05/23/21 Range/Units 16:32 20:42 RBC (4.40-5.60) X 10*6/uL Hgb (13.0-17.0) g/dL Hct (39.6-50.0) % MCHC (32.0-37.0) g/dL Immature Gran # (0.00-0.04) X 10*3/uL Neutrophils # (1.80-7.70) X 10*3/uL Lymphocytes # (0.90-5.00) X 10*3/uL Eosinophils # (0.04-0.35) X 10*3/uL BUN/Creatinine Ratio (12.00-20.00) Ratio Glucose (70-110) mg/dL POC Glucose (mg/dL) 283 H 230 H (75-99) mg/dL Procalcitonin (0.02-0.09) ng/mL Microbiology - Last 24 Hours (Table) 05/22/21 17:12 Blood Culture - Preliminary Blood No Growth after 24 hours 05/22/21 17:12 Blood Culture - Preliminary Blood No Growth after 24 hours Assessment and Plan Assessment: Acute hypoxic respiratory failure secondary to COPD and pneumonia Acute COPD exacerbation Multifocal pneumonia. COVID-19 PCR negative. Paroxysmal atrial fibrillation/flutter on anticoagulation with Eliquis at home. History of ARNOL/cardioversion. Obesity with a BMI 38.5 Mild pulmonary hypertension Bicuspid aortic valve with mild aortic stenosis. History of cardiac catheterization on 12/28/2020 showed mild nonobstructive CAD. Hypertension Hyperlipidemia GERD Osteoarthritis BPH Diabetes type 2 [id number] Obstructive sleep apnea on CPAP at home Bilateral feet peripheral neuropathy Previous history of smoking Depression Degenerative scoliosis Stable migraine headaches DVT prophylaxis patient is already on Eliquis Plan: Patient will be continued IV antibiotics with ceftriaxone and azithromycin. oxygen supplementation. Patient will be continued Solu-Medrol 60 mg every 6 hourly and duo nebs. Continue with home medications including Cardizem. Continue with anticoagulation with Eliquis. Pulmonary is folowing. Urine Legionella antigen negative. Continue to follow closely. Prognosis guarded at this time. Time with Patient: Greater than 30
[2021-05-24 11:45] LABS: African American GFR (CKD) 114.4 (60.0-200.0); Anion Gap 13.5 mmol/L (10.00-18.00); BUN/Creat Ratio 28.02 Ratio (12.00-20.00); Blood Urea Nitrogen 18.8 mg/dL (9.0-27.0); Calcium 9.5 mg/dL (8.7-10.3); Carbon Dioxide 25.5 mmol/L (20.0-27.5); Non-African American GFR(CKD) 98.7 (60.0-200.0); Potassium 4.4 mmol/L (3.5-5.5)
[2021-05-24 11:50] LABS: Glucose,Whole Blood 194 mg/dL (75-99)
[2021-05-24 13:06] VITALS: PULSE 72
--- NOTE | 2021-05-24 13:16 | CDI ---
Documentation Clarification Form Date: 05/24/2021 01:00:12 PM From: Gilma Barney CCS, CCDS Admit Date: 05/21/2021 02:47:00 PM Patient Name: Jaquan Shoemaker Visit Number: [id number] Discharge Date: ATTENTION: The Clinical Documentation Specialists (CDI) and [facility] Coding Staff appreciate your assistance in clarifying documentation. Please respond to the clarification below the line at the bottom and electronically sign. The CDI & [facility] Coding staff will review the response and follow-up if needed. Please note: Queries are made part of the Legal Health Record. If you have any questions, please contact the author of this message via ITS. Dr. Kandace Espino: Heart Failure without further specificity is documented in the 05/20 ED Note, the 05/21 History & Physical and the 05/22 Pulmonary Consult. Cardiology is not consulted. Additional information regarding the Type and Acuity of Heart Failure is requested. History/Risk Factors per the 05/21 H/P: Atrial Fibrillation, Atrial Flutter status post ARNOL Cardioversion on Eliquis & Cardizem; Asthma, Heart Failure, COPD, Diabetes Mellitus, GERD, Hyperlipidemia, Hypertension, Osteoarthritis (OA), Pneumonia, BPH, Pulmonary Embolus (PE), Dermatitis, JOSE C, Obesity. Former smoker. Clinical Indicators: Presented to the ED on 05/21 with SOB, cough, Low Pulse Ox at home (68%), fatigue, chills x6 days. Admit with Pneumonia and Hypoxia, COVID test negative. 05/21 VS: T 99.7, P 82, R 18 - 20 (sob, cough), BP 99/69, PO 90 RA - 95 6L nrb. BMI: 38.5 05/21 LAB: WBC 12.0, Pl Ct 134, Neut 10.7, Lymph 0.4, Glucose 188 05/22 BNP: 311. 05/21 CXR: Multifocal pneumonia. 05/22 CXR: Mild interval worsening in the lung infiltrates particularly in the right mid lower lung zone. 05/21 EKG: R 78 nsr 06/21/2018 Echocardiogram (most recent): Sinus rhythm. Technically difficult study. Left ventricular size wnl. Mild LVH. Systolic low normal w/EF 50-55%. 12/28/2020 ARNOL: Normal left and right ventricular dimension and systolic function. Moderate - severe biatrial enlargement. Bicuspid aortic valve with fusion of the right and left coronary cusps and evidence of mild aortic stenosis without aortic insufficiency. Thickened mitral valve leaflets with mild MR. Mildly dilated aortic root. No pericardial effusion. Treatment 05/21: INH Duoneb x1, IV Azithromycin x1, IV Rocephin x1, INH Ventolin QID, INH Spiriva Daily, po Lasix 20 mg BID, IV Solumedrol 125 mg x1. Home meds include: INH Duoneb, Ventolin, Pulmicort; Eliquis, K Tab, Singulair, Lasix 20 mg BID, Cartia. In your professional opinion, can you please clarify the Type and Acuity of CHF if known? [ ] Acute Systolic Heart Failure [ ] Chronic Systolic Heart Failure [ ] Acute on Chronic Systolic Heart Failure [ ] Acute Diastolic Heart Failure [ ] Chronic Diastolic Heart Failure [ ] Acute on Chronic Diastolic Heart Failure [ ] Acute Systolic & Diastolic Heart Failure [ ] Chronic Systolic & Diastolic Heart Failure [ ] Acute on Chronic Heart Failure Systolic & Diastolic Heart Failure [ ] Other, please specify [ ] Unable to determine (Template Last Revised: July 2020) Chronic Diastolic Heart Failure MTDD
== END 2021-05-24 14:27 | disposition home or self-care (01) | DRG 193 ==
LOC: EC 10:17 → 4SSUR 14:47
PROVIDERS: ADMIT Internal Medicine; ATTEND Internal Medicine
DX: J18.9 Pneumonia, unspecified organism (principal); J96.01 Acute respiratory failure with hypoxia; J44.0 Chronic obstructive pulmonary disease with (acute) lower respiratory infection; J44.1 Chronic obstructive pulmonary disease with (acute) exacerbation; Q23.1 Congenital insufficiency of aortic valve; I48.92 Unspecified atrial flutter; I50.32 Chronic diastolic (congestive) heart failure; Z68.38 Body mass index [BMI] 38.0-38.9, adult; Z20.822 Contact with and (suspected) exposure to COVID-19; E66.9 Obesity, unspecified; E11.42 Type 2 diabetes mellitus with diabetic polyneuropathy; E78.5 Hyperlipidemia, unspecified; F32.9 Major depressive disorder, single episode, unspecified; G47.33 Obstructive sleep apnea (adult) (pediatric); I11.0 Hypertensive heart disease with heart failure; I25.10 Atherosclerotic heart disease of native coronary artery without angina pectoris; G43.909 Migraine, unspecified, not intractable, without status migrainosus; K21.9 Gastro-esophageal reflux disease without esophagitis; M19.90 Unspecified osteoarthritis, unspecified site; N40.0 Benign prostatic hyperplasia without lower urinary tract symptoms; M41.80 Other forms of scoliosis, site unspecified; I48.0 Paroxysmal atrial fibrillation; L30.9 Dermatitis, unspecified; I27.20 Pulmonary hypertension, unspecified; Z96.643 Presence of artificial hip joint, bilateral; Z79.01 Long term (current) use of anticoagulants; Z79.84 Long term (current) use of oral hypoglycemic drugs; Z79.899 Other long term (current) drug therapy; Z87.891 Personal history of nicotine dependence; Z87.01 Personal history of pneumonia (recurrent); Z86.711 Personal history of pulmonary embolism; Z98.42 Cataract extraction status, left eye; Z98.41 Cataract extraction status, right eye; Z98.890 Other specified postprocedural states; Z80.8 Family history of malignant neoplasm of other organs or systems; Z80.1 Family history of malignant neoplasm of trachea, bronchus and lung; Z88.6 Allergy status to analgesic agent; Z88.8 Allergy status to other drugs, medicaments and biological substances
CPT/HCPCS: 36415; 71045; 71046; 80048; 80053; 83036; 83605; 83735; 83880; 84145; 84484; 85025; 85379; 85610; 85730; 87040; 87449; 87635; 93005; 94640; 94660; 94760; 99285

== ENCOUNTER 2023-06-15 15:06 | Inpatient (IN) | payer MEDICARE ==
[2023-06-15] MEDS ORDERED: SODIUM CHLORIDE 0.9% 1,000 ML IV STA (15:20)
[2023-06-15] MEDS ORDERED: IPRATROPIUM-ALBUTEROL 3 ML NEB INHALATION STA ×2 (15:20→18:52)
--- NOTE | 2023-06-15 15:21 | ED ---
SOB HPI - General Stated Complaint: BARRETT Time Seen by Provider: 06/15/23 15:19 Source: RN notes reviewed, old records reviewed Limitations: no limitations - History of Present Illness Initial Comments: This is a 68-year-old male to the ER for evaluation today. Patient presents to the emergency department today for evaluation regards to severe shortness of breath found at fever with cough and congestion. Patient has severely elevated heart rate history of atrial fibrillation, persistent shortness of breath. Patient does have noted fever. Severe respiratory distress weakness lightheadedness dizziness and chest pain MD Complaint: shortness of breath, cough, chest pain, anxiety -: days(s) Severity: mild Severity scale (1-10): 2 Quality: aching Consistency: constant Improves With: oxygen Worsens With: nothing Known History Of: COPD, congestive heart failure, recurrent pneumonia Context: recent URI, anxiety, recent illness Associated Symptoms: chest pain, sputum production Treatments Prior to Arrival: none - Related Data Home Medications Medication Instructions Recorded Confirmed Pregabalin [Lyrica] 300 mg PO BID 08/18/17 06/23/23 Montelukast Sodium [Singulair] 10 mg PO HS 01/29/18 06/23/23 Furosemide [Lasix] 20 mg PO BID 07/11/18 06/23/23 Potassium Chloride [K-Tab ER] 20 meq PO BID 07/11/18 06/23/23 Betamethasone Dipropionate 1 applic TOPICAL BID PRN 09/02/18 06/23/23 [Betamethasone Dipropionate 0.05% Cream] Fluticasone Nasal [place] [Flonase 2 spr EA NOSTRIL HS 06/28/19 06/23/23 Nasal [place]] Ipratropium-Albuterol Nebulize 3 ml INHALATION RT-QID PRN 06/28/19 06/23/23 [Duoneb 0.5 mg-3 mg/3 ml Soln] Ipratropium [place] 0.06%Nasal 2 spray EA NOSTRIL DAILY 06/30/19 06/23/23 [Atrovent Nasal 0.06%] Albuterol Sulfate [Ventolin HFA] 2 puff INHALATION RT-QID PRN 05/21/21 06/23/23 Betamethasone Dipropionate 1 applic TOPICAL DAILY PRN 05/21/21 06/23/23 [Betamethasone Diprop Augm Gel 0.05%] Diclofenac Sodium Gel [Voltaren 1% 1 applic TOPICAL QID PRN 05/21/21 06/23/23 Gel] Ketoconazole 2% Shampoo [Nizoral] 1 applic TOPICAL DAILY PRN 05/21/21 06/23/23 metFORMIN HCL [Glucophage] 1,000 mg PO BID 05/21/21 06/23/23 Budesonide [Pulmicort] 0.5 mg INHALATION RT-BID PRN 01/01/23 06/23/23 Fluticasone/Umeclidin/Vilanter 1 puff INHALATION RT-DAILY 01/01/23 06/23/23 [Trelegy Ellipta 200-62.5-25] Formoterol Fumarate [Perforomist] 20 mcg INHALATION RT-BID PRN 01/01/23 06/23/23 Pravastatin Sodium [Pravachol] 40 mg PO HS 01/01/23 06/23/23 Sertraline [Zoloft] 100 mg PO DAILY 01/01/23 06/23/23 traMADol HCL 100 mg PO Q6H PRN 01/01/23 06/23/23 Apixaban [Eliquis] 2.5 mg PO BID 06/15/23 06/23/23 Collagenase [Santyl Ointment] 1 applic TOPICAL DAILY PRN 06/15/23 06/23/23 HYDROcodone/APAP 5-325MG [[place] 1 tab PO BID PRN 06/15/23 06/23/23 5-325] predniSONE [Deltasone] See Taper PO DAILY 06/23/23 06/23/23 Previous Rx's Medication Instructions Recorded Ferrous Sulfate [Feosol] 325 mg PO DAILY #30 tab 01/07/23 Pantoprazole [Protonix] 40 mg PO AC-BRKFST #30 tab 01/07/23 Digoxin [Lanoxin] 125 mcg PO DAILY #30 tab 06/23/23 Diltiazem Cd [Cardizem CD] 240 mg PO DAILY #30 cap 06/23/23 cefUROXime axetiL [Ceftin] 500 mg PO BID 4 Days #8 tab 06/23/23 Allergies Allergy/AdvReac Type Severity Reaction Status Date / Time gemfibrozil [From Lopid] Allergy Unknown Verified 06/23/23 21:09 aspirin AdvReac Abdominal Verified 06/23/23 21:09 Pain ceftriaxone [From Rocephin] AdvReac Diarrhea Verified 06/23/23 21:09 fentanyl AdvReac Hallucinati Verified 06/23/23 21:09 ons gabapentin AdvReac Hallucinati Verified 06/24/23 21:18 ons moxifloxacin [From Avelox] AdvReac Unknown Verified 06/23/23 21:09 Review of Systems ROS Statement: Those systems with pertinent positive or pertinent negative responses have been documented in the HPI. ROS Other: All systems not noted in ROS Statement are negative. Past Medical History Past Medical History: No Reported History, Atrial Fibrillation, Atrial Flutter, Asthma, Heart Failure, COPD, Diabetes Mellitus, GERD/Reflux, Hyperlipidemia, Hypertension, Osteoarthritis (OA), Pneumonia, Prostate Disorder, Pulmonary Embolus (PE), Skin Disorder, Sleep Apnea/CPAP/BIPAP Additional Past Medical History / Comment(s): CPAP use. Neuropathy bilateral feet, dermatitis, enlarged prostate, PE found in 07/2003 while hospitalized for pneumonia, spinal stenosis, degenerative scoliosis, migraines, palpitations, "bleeds easily", hospitalized in August w/influenza-can't seem to "shake" cough. SOB and fatigue last few months. History of Any Multi-Drug Resistant Organisms: None Reported Past Surgical History: Bowel Resection, Heart Catheterization, Hernia Repair, Joint Replacement, Orthopedic Surgery, Tonsillectomy Additional Past Surgical History / Comment(s): Bilateral hip replacements, bilateral cataracts removed, hiatal hernia repair, incisional hernia repair with mesh-had bowel complication that resulted in a bowel resection, bronchoscopies, colonoscopy, ulna nerve right elbow surgery, cardioversion, ARNOL. Past Anesthesia/Blood Transfusion Reactions: Previous Problems w/ Anesthesia, Family History of Problems w/ Anesthesia Additional Past Anesthesia/Blood Transfusion Reaction / Comment(s): Problem with being "twilighted" - becomes very combative. Slow to wake up. Uncle has same symptoms with "twilight". Past Psychological History: Depression Smoking Status: Former smoker Past Alcohol Use History: None Reported Past Drug Use History: None Reported - Past Family History Father Family Medical History: Cancer Additional Family Medical History / Comment(s): Prostrate cancer. Mother Family Medical History: Cancer Additional Family Medical History / Comment(s): Skin cancer. Brother(s) Family Medical History: Cancer Additional Family Medical History / Comment(s): Brother of lung cancer. General Exam General appearance: alert, anxious, in distress Head exam: Present: atraumatic, normocephalic, normal inspection Eye exam: Present: normal appearance, PERRL, EOMI. Absent: scleral icterus, conjunctival injection, periorbital swelling ENT exam: Present: normal exam, mucous membranes moist Neck exam: Present: normal inspection. Absent: tenderness, meningismus, lymphadenopathy Respiratory exam: Present: respiratory distress, wheezes, accessory muscle use, decreased breath sounds, prolonged expiratory. Absent: rales, rhonchi, stridor Cardiovascular Exam: Present: tachycardia, irregular rhythm, normal heart sounds. Absent: systolic murmur, diastolic murmur, rubs, gallop, clicks GI/Abdominal exam: Present: soft, normal bowel sounds. Absent: distended, t enderness, guarding, rebound, rigid Extremities exam: Present: normal inspection, full ROM, normal capillary refill. Absent: tenderness, pedal edema, joint swelling, calf tenderness Back exam: Present: normal inspection Neurological exam: Present: alert, oriented X3, CN II-XII intact Psychiatric exam: Present: normal affect, normal mood Skin exam: Present: warm, dry, intact, normal color. Absent: rash Course Vital Signs 06/15/23 06/15/23 06/15/23 15:18 16:06 16:20 Temperature 101.2 F H Pulse Rate 154 H 112 H 120 H Respiratory 24 Rate Blood Pressure 119/81 O2 Sat by Pulse 90 L Oximetry 06/15/23 06/15/23 06/15/23 18:01 19:00 19:30 Temperature 97.6 F Pulse Rate 133 H 125 H 124 H Respiratory 22 22 18 Rate Blood Pressure 102/43 87/54 77/64 O2 Sat by Pulse 93 L 94 L 94 L Oximetry 06/15/23 06/15/23 06/15/23 20:00 20:03 20:28 Temperature Pulse Rate 135 H 117 H 121 H Respiratory 18 Rate Blood Pressure 85/63 O2 Sat by Pulse 91 L Oximetry 06/15/23 06/15/23 06/15/23 21:00 21:30 22:00 Temperature Pulse Rate 130 H 131 H 129 H Respiratory 24 20 21 Rate Blood Pressure 92/74 110/50 89/66 O2 Sat by Pulse 91 L 91 L 91 L Oximetry 06/15/23 06/16/23 06/16/23 22:30 00:00 00:30 Temperature Pulse Rate 130 H 133 H 107 H Respiratory 17 19 20 Rate Blood Pressure 89/66 82/65 70/58 O2 Sat by Pulse 92 L 93 L 92 L Oximetry 06/16/23 06/16/23 06/16/23 01:16 01:30 02:00 Temperature Pulse Rate 97 108 H 105 H Respiratory 18 20 22 Rate Blood Pressure 83/54 98/69 86/64 O2 Sat by Pulse 93 L 94 L 95 Oximetry 06/16/23 06/16/23 06/16/23 02:27 02:30 03:00 Temperature Pulse Rate 91 90 110 H Respiratory 19 20 22 Rate Blood Pressure 86/64 86/59 88/72 O2 Sat by Pulse 93 L 92 L 91 L Oximetry 06/16/23 06/16/23 06/16/23 03:30 04:00 05:00 Temperature Pulse Rate 89 100 101 H Respiratory 18 19 22 Rate Blood Pressure 82/60 99/59 83/61 O2 Sat by Pulse 94 L 95 93 L Oximetry 06/16/23 06/16/23 06/16/23 05:30 06:00 06:30 Temperature Pulse Rate 85 87 93 Respiratory 20 20 18 Rate Blood Pressure 91/64 97/67 100/73 O2 Sat by Pulse 92 L 94 L 95 Oximetry 06/16/23 06/16/23 06/16/23 08:39 08:50 12:46 Temperature Pulse Rate 93 113 H 111 H Respiratory 18 18 18 Rate Blood Pressure O2 Sat by Pulse 96 Oximetry 06/16/23 06/16/23 12:54 13:35 Temperature Pulse Rate 111 H 117 H Respiratory 18 24 Rate Blood Pressure 95/73 O2 Sat by Pulse 94 L Oximetry - Reevaluation(s) Reevaluation #1: 06/15/23 15:46 Medical record is reviewed Reevaluation #2: Patient has no significant change in condition here in the ER maybe mildly improved Reevaluation #3: Informed results and questions answered Reevaluation #4: 06/15/23 15:46 Was pt. sent in by a medical professional or institution (, PA, RUBBER FLAP TUBER MACHINE OPERATOR, urgent ca re, hospital, or custodial...) When possible be specific @ -no Did you speak to anyone other than the patient for history (EMS, parent, family, police, friend...)? What history was obtained from this source @ -no Did you review nursing and triage notes (agree or disagree)? Why? @ -agree Are old charts reviewed (outside hosp., previous admission, EMS record, old EKG, old radiological studies, urgent care reports/EKG's, custodial records)? Report findings @ -yes Differential Diagnosis (chest pain, altered mental status, abdominal pain women, abdominal pain men, vaginal bleeding, weakness, fever, dyspnea, syncope, headache, dizziness, GI bleed, back pain, seizure, CVA, palpatations, mental health, musculoskeletal)? @ -prior EKG interpreted by me (3pts min.). @ -yes X-rays interpreted by me (1pt min.). @ -yes positive for multifocal pneumonia CT interpreted by me (1pt min.). @ -no U/S interpreted by me (1pt. min.). @ -no What testing was considered but not performed or refused? (CT, X-rays, U/S, labs)? Why? @ -none What meds were considered but not given or refused? Why? @ -none Did you discuss the management of the patient with other professionals (professionals i.e. , PA, RUBBER FLAP TUBER MACHINE OPERATOR, lab, RT, psych nurse, social services technician, pattern molder, teacher, president and chief commercial officer, rn case management)? Give summary @ -no Was smoking cessation discussed for >3mins.? @ -no Was critical care preformed (if so, how long)? @ -yes95 Were there social determinants of health that impacted care today? How? (Homelessness, low income, unemployed, alcoholism, drug addiction, transportation, low edu. Level, literacy, decrease access to med. care, intermediate, rehab)? @ -none Was there de-escalation of care discussed even if they declined (Discuss DNR or withdrawal of care, Hospice)? DNR status @ -no What co-morbidities impacted this encounter? (DM, HTN, Smoking, COPD, CAD, Cancer, CVA, ARF, Chemo, Hep., AIDS, mental health diagnosis, sleep apnea, morbid obesity)? @ -none Was patient admitted / discharged? Hospital course, mention meds given and route, prescriptions, significant lab abnormalities, going to OR and other pertinent info. @ - 68 male to the emergency department for evaluation of significant distress was of breath of likely pneumonia fever labile vital signs, patient will be admitted for significant respiratory distress respiratory failure, sepsis Admitted Undiagnosed new problem with uncertain prognosis? @ -no Drug Therapy requiring intensive monitoring for toxicity (Heparin, Nitro, Insulin, Cardizem)? @ -no Were any procedures done? @ -no Diagnosis/symptom? @ -Respiratory failure, pneumonia, fever sepsis Acute, or Chronic, or Acute on Chronic? @ -Acute Uncomplicated (without systemic symptoms) or Complicated (systemic symptoms)? @ -Complicated Side effects of treatment? @ -no Exacerbation, Progression, or Severe Exacerbation? @ -exacerbation Poses a threat to life or bodily function? How? (Chest pain, [place], [place], pneumonia, PE, COPD, DKA, ARF, appy, cholecystitis, CVA, Diverticulitis, Homicidal, Suicidal, threat to staff... and all critical care pts) @ -yes significant respiratory distress and sepsis Reevaluation #5: 06/15/23 15:46 Differential Dyspnea: Coronary syndrome, arrhythmia, tamponade, asthma, COPD, pulmonary embolism, pneumonia, pneumothorax, pulmonary effusion, anaphylaxis, diabetic ketoacidosis, flailed chest, pulmonary contusion, diaphragmatic rupture, anemia, neuromuscular, this is not meant to be an all-inclusive list. Differential Fever: Pneumonia, viral URI, endocarditis, myocarditis, pericarditis, otitis, sinusitis, peritonsillar Abscess, retropharyngeal Abscess, epiglottitis, peritonitis, appendicitis, [place] cystitis, diverticulitis, hepatitis, colitis, UTI, PID, TOA, pyelonephritis, prostatitis, epididymitis, meningitis, encephalitis, pulmonary embolism, CVA, thyroid storm, pancreatitis, adrenal crisis, cavernous sinus thrombosis, this is not meant to be an all-inclusive list. - Consultations Consultation #1: spoke with sound who will admit this patient Procedures - Sepsis Sepsis Focused Exam #1 Time Sepsis Criteria Met: 18:00 Sepsis Focused Exam Date: 06/15/23 Sepsis Focused Exam Time: 23:30 Sepsis Focused Exam Complete: Yes Vital Signs & RN Notes Reviewed: Yes Capillary Refill: < 2 Seconds: Fingers, Toes Peripheral Pulses: Normal: Radial (R), Radial (L), Posterior Tibialis (R), Posterior Tibialis (L), Dorsalis Pedis (R), Dorsalis Pedis (L) Skin Color: Flushed Respiratory Exam: respiratory distress, rhonchi, decreased breath sounds Cardiovascular Exam: tachycardia, irregular rhythm Medical Decision Making - Medical Decision Making 68 male to the emergency department for evaluation of significant distress was of breath of likely pneumonia fever labile vital signs, patient will be admitted for significant respiratory distress respiratory failure - Lab Data Result diagrams: 06/21/23 07:34 06/21/23 07:34 Lab Results 06/15/23 06/15/23 06/15/23 Range/Units 15:23 15:23 15:23 WBC 15.0 H (3.8-10.6) k/uL RBC 4.61 (4.30-5.90) m/uL Hgb 14.3 (13.0-17.5) gm/dL Hct 42.7 (39.0-53.0) % MCV 92.7 (80.0-100.0) fL MCH 30.9 (25.0-35.0) pg MCHC 33.4 (31.0-37.0) g/dL RDW 16.3 H (11.5-15.5) % Plt Count 125 L (150-450) k/uL MPV 10.0 Neutrophils % 95 % Lymphocytes % 2 % Monocytes % 3 % Eosinophils % 0 % Basophils % 0 % Neutrophils # 14.2 H (1.3-7.7) k/uL Lymphocytes # 0.3 L (1.0-4.8) k/uL Monocytes # 0.4 (0-1.0) k/uL Eosinophils # 0.0 (0-0.7) k/uL Basophils # 0.0 (0-0.2) k/uL Anisocytosis Slight PT 10.3 (10.0-12.5) sec INR 0.9 (<1.2) APTT 30.5 H (22.0-30.0) sec Sodium 137 (137-145) mmol/L Potassium 3.8 (3.5-5.1) mmol/L Chloride 102 (98-107) mmol/L Carbon Dioxide 25 (22-30) mmol/L Anion Gap 10 mmol/L BUN 18 (9-20) mg/dL Creatinine 0.51 L (0.66-1.25) mg/dL Est GFR (CKD-EPI)AfAm >90 (>60 ml/min/1.73 sqM) Est GFR (CKD-EPI)NonAf >90 (>60 ml/min/1.73 sqM) Glucose 99 (74-99) mg/dL Plasma Lactic Acid Gabriel (0.7-2.0) mmol/L Calcium 9.3 (8.4-10.2) mg/dL Magnesium 1.9 (1.6-2.3) mg/dL Total Bilirubin 1.9 H (0.2-1.3) mg/dL AST 33 (17-59) U/L ALT 29 (4-49) U/L Alkaline Phosphatase 99 (38-126) U/L Troponin I (0.000-0.034) ng/mL NT-Pro-B Natriuret Pep 2110 pg/mL Total Protein 5.3 L (6.3-8.2) g/dL Albumin 3.0 L (3.5-5.0) g/dL Influenza Type A (PCR) (Not Detectd) Influenza Type B (PCR) (Not Detectd) RSV (PCR) (Not Detectd) SARS-CoV-2 (PCR) (Not Detectd) 06/15/23 06/15/23 06/15/23 Range/Units 15:23 15: 17:40 WBC (3.8-10.6) k/uL RBC (4.30-5.90) m/uL Hgb (13.0-17.5) gm/dL Hct (39.0-53.0) % MCV (80.0-100.0) fL MCH (25.0-35.0) pg MCHC (31.0-37.0) g/dL RDW (11.5-15.5) % Plt Count (150-450) k/uL MPV Neutrophils % % Lymphocytes % % Monocytes % % Eosinophils % % Basophils % % Neutrophils # (1.3-7.7) k/uL Lymphocytes # (1.0-4.8) k/uL Monocytes # (0-1.0) k/uL Eosinophils # (0-0.7) k/uL Basophils # (0-0.2) k/uL Anisocytosis PT (10.0-12.5) sec INR (<1.2) APTT (22.0-30.0) sec Sodium (137-145) mmol/L Potassium (3.5-5.1) mmol/L Chloride (98-107) mmol/L Carbon Dioxide (22-30) mmol/L Anion Gap mmol/L BUN (9-20) mg/dL Creatinine (0.66-1.25) mg/dL Est GFR (CKD-EPI)AfAm (>60 ml/min/1.73 sqM) Est GFR (CKD-EPI)NonAf (>60 ml/min/1.73 sqM) Glucose (74-99) mg/dL Plasma Lactic Acid Gabriel 1.4 (0.7-2.0) mmol/L Calcium (8.4-10.2) mg/dL Magnesium (1.6-2.3) mg/dL Total Bilirubin (0.2-1.3) mg/dL AST (17-59) U/L ALT (4-49) U/L Alkaline Phosphatase (38-126) U/L Troponin I 0.017 (0.000-0.034) ng/mL NT-Pro-B Natriuret Pep pg/mL Total Protein (6.3-8.2) g/dL Albumin (3.5-5.0) g/dL Influenza Type A (PCR) Not Detected (Not Detectd) Influenza Type B (PCR) Not Detected (Not Detectd) RSV (PCR) Not Detected (Not Detectd) SARS-CoV-2 (PCR) Not Detected (Not Detectd) - EKG Data -: EKG Interpreted by Me (EKG is A. fib with RVR 152 QRS 110 QTc 350) - Radiology Data Radiology results: report reviewed (S x-ray is significant for multifocal opacities and pneumonia), image reviewed Critical Care Time Critical Care Time: Yes Total Critical Care Time: 95 Disposition Clinical Impression: Acute exacerbation of chronic obstructive pulmonary disease, Acute respiratory distress syndrome in adult, Fever, Atrial fibrillation with rapid ventricular response, Hypoxia, Pneumonia, Community acquired pneumonia, COPD with acute exacerbation, Nosocomial pneumonia, Community acquired bacterial pneumonia, Weakness, Allergy to multiple antibiotics, Sepsis, Atrial fibrillation, Atrial flutter Disposition: ADMITTED IP TO THIS HOSP Condition: Serious Is patient prescribed a controlled substance at d/c from ED?: No Time of Disposition: 18:55
[2023-06-15] MEDS ORDERED: IBUPROFEN 800 MG TAB PO STA (15:25)
[2023-06-15] MEDS ORDERED: ACETAMINOPHEN TAB 500 MG TAB PO STA (15:25)
[2023-06-15] MEDS ORDERED: DILTIAZEM DRIP BOLUS FROM BAG 1 MG SOLN IV ONE (15:27)
[2023-06-15 15:40] LABS: Anisocytosis Slight; Basophils % (A) 0 %; Eosinophils % (A) 0 %; HCT 42.7 % (39.0-53.0); HGB 14.3 gm/dL (13.0-17.5); Lymphocytes # (A) 0.3 k/uL (1.0-4.8); Lymphocytes % (A) 2 %; MCH 30.9 pg (25.0-35.0); MCHC 33.4 g/dL (31.0-37.0); MCV 92.7 fL (80.0-100.0); Monocytes # (A) 0.4 k/uL (0-1.0); Monocytes % (A) 3 %; Neutrophils # (A) 14.2 k/uL (1.3-7.7); Neutrophils % (A) 95 %; Platelet Count 125 k/uL (150-450); RBC 4.61 m/uL (4.30-5.90); RDW 16.3 % (11.5-15.5)
[2023-06-15 15:50] LABS: ALT 29 U/L (4-49); AST 33 U/L (17-59); African American GFR (CKD) >90 (>60 ml/min/1.73 sqM); Alkaline Phosphatase 99 U/L (38-126); Anion Gap 10 mmol/L; Blood Urea Nitrogen 18 mg/dL (9-20); Calcium 9.3 mg/dL (8.4-10.2); Carbon Dioxide 25 mmol/L (22-30); Chloride 102 mmol/L (98-107); Glucose 99 mg/dL (74-99); Magnesium 1.9 mg/dL (1.6-2.3); Non-African American GFR(CKD) >90 (>60 ml/min/1.73 sqM); Potassium 3.8 mmol/L (3.5-5.1); Sodium 137 mmol/L (137-145); Total Bilirubin 1.9 mg/dL (0.2-1.3); Total Protein 5.3 g/dL (6.3-8.2)
[2023-06-15 15:58] LABS: NT-Pro-B-Type Natriuretic Pept 2110 pg/mL
[2023-06-15 16:01] LABS: INR 0.9 (<1.2); Partial Thromboplastin Time 30.5 sec (22.0-30.0); Prothrombin Time 10.3 sec (10.0-12.5)
[2023-06-15] MEDS: DILTIAZEM 125 MG in SODIUM CHLORIDE 0.9% 100 ML IV SCH (16:14)
--- NOTE | 2023-06-15 16:33 | XR ---
EXAMINATION TYPE: XR chest 1V portable DATE OF EXAM: 06/15/2023 4:26 PM CLINICAL INDICATION:Male, 68 years old with history of sob; COMPARISON: Chest radiographs from 01/02/2023 TECHNIQUE: XR chest 1V portable Frontal view of the chest. FINDINGS: Lungs/Pleura: There is no evidence of pleural effusion, focal consolidation, or pneumothorax. Pulmonary vascularity: Unremarkable. Heart/mediastinum: Cardiomediastinal silhouette is unremarkable. Musculoskeletal: No acute osseous pathology. IMPRESSION: Multifocal airspace opacities concerning for pneumonia.
[2023-06-15] MEDS ORDERED: PNEUMONIA PROTOCOL UTILIZED 1 EACH MISC PO PRN (18:52)
[2023-06-15] MEDS ORDERED: AZITHROMYCIN 500 MG in SODIUM CHLORIDE 0.9% 250 ML IVPB STA (18:52)
[2023-06-15] MEDS ORDERED: PIPERACILLIN-TAZOBACTAM 3.375 GM in SODIUM CHLORIDE 0.9% 100 ML IVPB STA (18:54)
[2023-06-15] MEDS: ALBUTEROL NEBULIZED 2.5 MG/3 ML INHALATION SCH (20:03)
[2023-06-15] MEDS: SODIUM CHLORIDE 0.9% 1,000 ML IV SCH (20:48)
[2023-06-15] MEDS ORDERED: BUDESONIDE 0.5 MG/2 ML NEBU INHALATION PRN (22:23)
[2023-06-15] MEDS ORDERED: FORMOTEROL FUMARATE 20 MCG/2 ML NEBU INHALATION PRN (22:23)
[2023-06-15] MEDS: HYDROcodone/APAP 5-325MG 1 EACH TAB PO PRN (23:07)
[2023-06-15] MEDS: PRAVASTATIN SODIUM 40 MG TAB PO SCH (23:07)
[2023-06-15] MEDS: MONTELUKAST 10 MG TAB PO SCH (23:07)
[2023-06-15] MEDS: APIXABAN 2.5 MG TABLET PO SCH (23:07)
[2023-06-15] MEDS: PREGABALIN 100 MG CAP PO SCH (23:08)
[2023-06-16] MEDS ORDERED: DEXTROSE 50% SYRINGE 50 ML IVP PRN ×2 (01:56)
[2023-06-16] MEDS: LEVOFLOXACIN 750MG-D5W PMX 750 MG in DEXTROSE/WATER 1 150ML.BAG IVPB SCH (02:14)
[2023-06-16] MEDS: DICLOFENAC SODIUM GEL 100 GM TUBE TOPICAL PRN (02:20)
[2023-06-16 02:30] LABS: Glucose,Whole Blood 142 mg/dL (70-110)
--- NOTE | 2023-06-16 02:44 | P.HPIM ---
History of Present Illness H&P Date: 06/15/23 Chief Complaint: cough , SOB 68 year old male with Afib , copd on home oxygen , DM patient coming in for sob , he reports coughing that started 3 days ago, progressed quickly to be associated with SOB, and fever. today he noticed fast heart rate , along with SOB, for which he decided to come in for evaluation. he denies any known sick contacts, recent travel , hospital stay , or history of blood clots . denies any boday aches, sore throat, runny nose, nausea , vomiting, chest pain , abd pain, changes in bowel or urinary habits, denies any GI bleeding patient known afib , on blood thinners, most recent echocardiogram showed preserved left ventricular ejection fraction reports history of copd on home oxygen , denies any wheezing. he does report increase phlegm production, denies any leg edema or orthopnea today he was feeling very weak, and almost falling when trying to ambulate, for which decided to come in for evaluation, he admits to decrease PO intake and decrease urine output which was turning dark . denies tobacco smoking, illicit drugs or alcohol he reports allergy to Rocephine (diarrhea ) and unknown allergy to moxifloxacin, denies any history of life threatening allergies to medications review of systems Pertinent positives as noted in HPI. All other systems were reviewed and are negative on exam Constitutional: No acute distress, conversant, pleasant Eyes: Anicteric sclerae, moist conjunctiva, Pupils equal round reactive to light ENMT: NC/AT Oropharynx clear, no erythema, or exudates Neck: Supple, no masses, or JVD No carotid bruits No thyromegaly Lungs: Clear to auscultation Clear to percussion Normal respiratory effort, no accessory muscle use Cardiovascular: Heart regular in rate and rhythm, No murmurs, gallops, or rubs No peripheral edema Abdominal: Soft Nontender, no guarding, rebound or rigidity Abdomen moving with respiration Normoactive bowel sounds No hepatomegaly, No splenomegaly No palpable mass No abdominal wall hernia noted Extremities: No digital cyanosis No clubbing Pedal pulses intact and symmetrical Radial pulses intact and symmetrical No calf tenderness Psychiatric: Alert and oriented to person, place and time Appropriate affect fair judgement Neuro Muscles Strength 5/5 in all 4 extremities Sensation to light touch grossly present throughout Cranial nerves II-XII grossly intact Lymphatics: no palpable cervical or supraclavicular lymph nodes Past Medical History Past Medical History: No Reported History, Atrial Fibrillation, Atrial Flutter, Asthma, Heart Failure, COPD, Diabetes Mellitus, GERD/Reflux, Hyperlipidemia, Hypertension, Osteoarthritis (OA), Pneumonia, Prostate Disorder, Pulmonary Embolus (PE), Skin Disorder, Sleep Apnea/CPAP/BIPAP Additional Past Medical History / Comment(s): CPAP use. Neuropathy bilateral feet, dermatitis, enlarged prostate, PE found in 07/2003 while hospitalized for pneumonia, spinal stenosis, degenerative scoliosis, migraines, palpitations, "bleeds easily", hospitalized in August w/influenza-can't seem to "shake" cough. SOB and fatigue last few months. History of Any Multi-Drug Resistant Organisms: None Reported Past Surgical History: Bowel Resection, Heart Catheterization, Hernia Repair, Joint Replacement, Orthopedic Surgery, Tonsillectomy Additional Past Surgical History / Comment(s): Bilateral hip replacements, bilateral cataracts removed, hiatal hernia repair, incisional hernia repair with mesh-had bowel complication that resulted in a bowel resection, bronchoscopies, colonoscopy, ulna nerve right elbow surgery, cardioversion, ARNOL. Past Anesthesia/Blood Transfusion Reactions: Previous Problems w/ Anesthesia, Family History of Problems w/ Anesthesia Additional Past Anesthesia/Blood Transfusion Reaction / Comment(s): Problem with being "twilighted" - becomes very combative. Slow to wake up. Uncle has same symptoms with "twilight". Past Psychological History: Depression Smoking Status: Former smoker Past Alcohol Use History: None Reported Past Drug Use History: None Reported - Past Family History Father Family Medical History: Cancer Additional Family Medical History / Comment(s): Prostrate cancer. Mother Family Medical History: Cancer Additional Family Medical History / Comment(s): Skin cancer. Brother(s) Family Medical History: Cancer Additional Family Medical History / Comment(s): Brother of lung cancer. Medications and Allergies Home Medications Medication Instructions Recorded Confirmed Type Pregabalin [Lyrica] 300 mg PO BID 08/18/17 06/15/23 History Montelukast Sodium [Singulair] 10 mg PO HS 01/29/18 06/15/23 History Furosemide [Lasix] 20 mg PO BID 07/11/18 06/15/23 History Potassium Chloride [K-Tab ER] 20 meq PO BID 07/11/18 06/15/23 History Betamethasone Dipropionate 1 applic TOPICAL BID PRN 09/02/18 06/15/23 History [Betamethasone Dipropionate 0.05% Cream] Fluticasone Nasal Kend[place] [Flonase 2 spr EA NOSTRIL HS 06/28/19 06/15/23 History Nasal [place]] Ipratropium-Albuterol Nebulize 3 ml INHALATION RT-QID PRN 06/28/19 06/15/23 History [Duoneb 0.5 mg-3 mg/3 ml Soln] dilTIAZem HCL [Cartia Xt] 120 mg PO DAILY 06/28/19 06/15/23 History Ipratropium [place] 0.06%Nasal 2 spray EA NOSTRIL DAILY 06/30/19 06/15/23 History [Atrovent Nasal 0.06%] Albuterol Sulfate [Ventolin HFA] 2 puff INHALATION RT-QID PRN 05/21/21 06/15/23 History Betamethasone Dipropionate 1 applic TOPICAL DAILY PRN 05/21/21 06/15/23 History [Betamethasone Diprop Augm Gel 0.05%] Diclofenac Sodium Gel [Voltaren 1% 1 applic TOPICAL QID PRN 05/21/21 06/15/23 History Gel] Ketoconazole 2% Shampoo [Nizoral] 1 applic TOPICAL DAILY PRN 05/21/21 06/15/23 History metFORMIN HCL [Glucophage] 1,000 mg PO BID 05/21/21 06/15/23 History Budesonide [Pulmicort] 0.5 mg INHALATION RT-BID PRN 01/01/23 06/15/23 History Fluticasone/Umeclidin/Vilanter 1 puff INHALATION RT-DAILY 01/01/23 06/15/23 History [Trelegy Ellipta 200-62.5-25] Formoterol Fumarate [Perforomist] 20 mcg INHALATION RT-BID PRN 01/01/23 06/15/23 History Pravastatin Sodium [Pravachol] 40 mg PO HS 01/01/23 06/15/23 History Sertraline [Zoloft] 100 mg PO DAILY 01/01/23 06/15/23 History traMADol HCL 100 mg PO Q6H PRN 01/01/23 06/15/23 History Ferrous Sulfate [Feosol] 325 mg PO DAILY #30 tab 01/07/23 06/15/23 Rx Pantoprazole [Protonix] 40 mg PO AC-BRKFST #30 tab 01/07/23 06/15/23 Rx Apixaban [Eliquis] 2.5 mg PO BID 06/15/23 06/15/23 History Collagenase [Santyl Ointment] 1 applic TOPICAL DAILY PRN 06/15/23 06/15/23 History HYDROcodone/APAP 5-325MG [[place] 1 tab PO BID PRN 06/15/23 06/15/23 History 5-325] Allergies Allergy/AdvReac Type Severity Reaction Status Date / Time gemfibrozil [From Lopid] Allergy Unknown Verified 06/15/23 17:19 aspirin AdvReac Abdominal Verified 06/15/23 17:19 Pain ceftriaxone [From Rocephin] AdvReac Diarrhea Verified 06/15/23 17:19 fentanyl AdvReac Hallucinati Verified 06/15/23 17:19 ons moxifloxacin [From Avelox] AdvReac Unknown Verified 06/15/23 17:19 Physical Exam Vitals: Vital Signs Temp Pulse Resp BP Pulse Ox 06/15/23 20:28 121 H 06/15/23 20:03 117 H 06/15/23 20:00 135 H 18 85/63 91 L 06/15/23 18:01 97.6 F 133 H 22 102/43 93 L 06/15/23 16:20 120 H 06/15/23 16:06 112 H 06/15/23 15:18 101.2 F H 154 H 24 119/81 90 L Intake and Output 06/15/23 06/15/23 06/15/23 06:59 14:59 22:59 Other: Weight 112.491 kg Results CBC & Chem 7: 06/15/23 15:23 06/15/23 15:23 Labs: Abnormal Lab Results - Last 24 Hours (Table) 06/15/23 06/15/23 06/15/23 Range/Units 15:23 15:23 15:23 WBC 15.0 H (3.8-10.6) k/uL RDW 16.3 H (11.5-15.5) % Plt Count 125 L (150-450) k/uL Neutrophils # 14.2 H (1.3-7.7) k/uL Lymphocytes # 0.3 L (1.0-4.8) k/uL APTT 30.5 H (22.0-30.0) sec Creatinine 0.51 L (0.66-1.25) mg/dL Total Bilirubin 1.9 H (0.2-1.3) mg/dL Total Protein 5.3 L (6.3-8.2) g/dL Albumin 3.0 L (3.5-5.0) g/dL Assessment and Plan Assessment: 68 year old male with DM , afib on eliquis , coming in for generalized weakness, palpitations and URI symptoms of 3 days duration I discussed the case with ed doc and I accepted the admission for Sepsis 2/2 pneumonia , afib with RVR with anticipated length of stay > 2 midnights acute on chronic hypoxic respiratory failure sepsis , secondary to pneumonia CAP afib with RVR follow up cultures CXR showed multifocal infilterates follow up cultures urine legionella antigen acute respiratory viral panel negative to covid , RSV and influenza given azithro and zosyn in ed switch to levofloxacin 750 mg IVPB daily (verified that he is not aware of any allergy to moxifloxacin, and denies any history of life threatening allergy to any medications) tylenol for fever supplemental oxygen as needed cardizem bolus and drip for heart rate control resume eliquis cardiac monitoring most recent echo showed preserved LVEF most recent heart cath showed non obstructive CAD blood work showed leukocytosis WBC 15 , afib with RVR hypoxemia DM insulin sliding scale hypertension copd , resume inhalers symbicort and duonebs pRN resume singulair DVT PPX on eliquis for afib prn ambien 5 mg po for insomnia full code GI ppx on protonix 40 mg po daily
[2023-06-16] MEDS ORDERED: PIPERACILLIN-TAZOBACTAM 3.375 GM in SODIUM CHLORIDE 0.9% 100 ML IVPB SCH (03:00)
[2023-06-16] MEDS: ZOLPIDEM 5 MG TAB PO PRN ×2 (03:15→21:25)
[2023-06-16] MEDS: SODIUM CHLORIDE 0.9% 1,000 ML IV SCH ×2 (05:10→23:44)
[2023-06-16 07:13] LABS: Glucose,Whole Blood 115 mg/dL (70-110)
[2023-06-16] MEDS: INSULIN ASPART (NovoLOG) 100 UNIT/ML VIAL SQ SCH ×4 (07:39→21:14)
[2023-06-16] MEDS ORDERED: IPRATROPIUM 0.5 MG/2.5 ML NEBU INHALATION SCH (08:00)
[2023-06-16] MEDS: IPRATROPIUM-ALBUTEROL 3 ML NEB INHALATION SCH ×4 (08:38→20:55)
[2023-06-16] MEDS: SYMBICORT 80-4.5 MCG INHALER INHALATION SCH ×2 (08:39→20:55)
[2023-06-16] MEDS ORDERED: IPRATROPIUM-ALBUTEROL 3 ML NEB INHALATION PRN (09:41)
--- NOTE | 2023-06-16 12:26 | XR ---
EXAM: XR chest 1V portable CLINICAL INDICATION:Male, 68 years old with history of pneumonia; [facility] COMPARISON: Yesterday and 01/02/2023 TECHNIQUE: Chest single view. FINDINGS: Lines/tubes/devices: None. Cardiomediastinum: Cardiomediastinal silhouette is partially obscured by the adjacent opacities but the heart seems to b e mildly enlarged and the aorta somewhat tortuous. Vasculature: Mildly increased Lungs/pleura: Extensive patchy alveolar and interstitial opacities again seen bilaterally, worse on the right than the left, and overall show slight interval improvement with significant residual. No sizable pleural effusion or pneumothorax is seen. MSK: Osseous structures appear grossly unchanged. IMPRESSION: Extensive multifocal pulmonary opacities concerning for pneumonia. There has been slight interval imp rovement since yesterday's exam.
[2023-06-16] MEDS: PREGABALIN 100 MG CAP PO SCH ×2 (13:30→21:25)
[2023-06-16] MEDS: ALBUTEROL NEBULIZED 2.5 MG/3 ML INHALATION SCH (13:30)
[2023-06-16] MEDS: APIXABAN 2.5 MG TABLET PO SCH ×2 (13:31→21:25)
[2023-06-16] MEDS: HYDROcodone/APAP 5-325MG 1 EACH TAB PO PRN ×2 (13:31→23:59)
[2023-06-16] MEDS: PANTOPRAZOLE 40 MG TABLET PO SCH (13:31)
[2023-06-16] MEDS: SERTRALINE 100 MG TAB PO SCH (13:31)
[2023-06-16] MEDS: methylPREDNISolone SOD SUCCI 125 MG/2 ML VIAL IV SCH ×3 (13:31→23:59)
[2023-06-16] MEDS: DILTIAZEM 125 MG in SODIUM CHLORIDE 0.9% 100 ML IV SCH (13:40)
--- NOTE | 2023-06-16 13:59 | P.PN ---
Subjective Progress Note Date: 06/16/23 Patient is a 68 yo male with a know A fib anticoagulated with eliquis, COPD on home O2 as needed, DM2, GERD, HTN, HLD, and multiple toehr comorbid conditions who presented to the ED with complaints of shortness of breath and fevers. The ER he was noted to be febrile with a temp of 101.2 and a pulse of 154 and was satting 90% on 15 L nonrebreather. Laboratory analysis remarkable for white blood cell count 15, platelets 125. Influenza A/B/RC/COVID-19 PCR was negative. BNP mildly elevated at 2110. EKG demonstrated atrial fibrillation with rapid ventricular response. Chest x-ray demonstrated bilateral multifocal pneumonia. Patient seen and examined at bedside. He reports feeling very weak and tired. He reports feeling short of breath. He denies any chest pain, lightheadedness, or dizziness. He states that shortness of breath started suddenly on Sunday. He denies being around any sick contacts. He denies doing anything unusual. He denies any changes in medication. He follows with Dr. Kilgore of cardiology. He does not follow with a rolling machine operator automatic. He has seen Dr. Srivastava in the past. Patient refused to see pulmonary, I discussed with him at [facility] that it is in his best interest to see a rolling machine operator automatic while in the hospital, patient declines. Vital signs reviewed General: ill appearing, no distress, appears at stated age Cardiovascular: S1S2 reg, no murmur, positive posterior tibial pulse bilateral, Lungs: course bs b/l with diffuse wheezing, + 3-word conversation dyspnea, default no accessory muscle use Abdominal: soft, nontender to palpation, no guarding, no appreciable organomegaly Ext: no gross muscle atrophy, trace edema b/l lower extremities, no contractures Neuro: CN II-XI grossly intact, no focal neuro deficits Psych: Alert, oriented, appropriate affect Assessment/Plan: Community acquired multifocal pneumonia Acute on chronic hypoxic respiratory failure, uses as needed oxygen at home Sepsis Acute exacerbation of COPD - patient with allergy to rocephin with diarrhea and he refuses to take this medication - levaquin 750 mg IVPB daily - sputum culture, legionella urine antigen - 200 on 4 times daily and every 2 hours as needed, and Zocor 2 puffs twice daily -Start Solu-Medrol IV 60 mg every 6 hours -Continue Singulair -Wean O2 as able Paroxysmal Atrial fibrillation with rapid ventricular response Hypertension Dyslipidemia Congestive heart failure with mild exacerbation, last appears to be diastolic with preserved EF of 50-55% in 2019 -Decrease IV fluids to 50 mL/h, resume lasix 20 mg PO BID -Continue with diltiazem 5 mg/h -Continue with Eliquis 2.5 mg twice daily -Await cardiology consultation -Check echocardiogram - consult ID, patient refuses pulmonary consult Diabetes mellitus type 2 -Hold metformin -Sliding-scale insulin Chronic: See arthritis Prior pulmonary embolism Obstructive sleep apnea Neuropathy Spinal stenosis Imaging: Chest x-ray as reviewed by myself reveals extensive bilateral multifocal areas of opacification greater on right than left Data Review: Stat CBC and bmp DVT prophylaxis: Eliquis Anticipated discharge date: Pending Clinical Course Anticipated discharge place: Pending Clinical Course This dictation was prepared using [employer] voice recognition software. Though every attempt is made to correct errors during dictation some may still exist. Objective - Vital Signs Vital signs: Vital Signs Temp 97.6 F 06/15/23 18:01 Pulse 117 H 06/16/23 13:35 Resp 24 06/16/23 13:35 BP 95/73 06/16/23 13:35 Pulse Ox 94 L 06/16/23 13:35 FiO2 Intake & Output 06/15/23 06/16/23 06/16/23 18:59 06:59 18:59 Intake Total 107.167 Balance 107.167 Weight 112.491 kg Intake: Intake, IV Titration 107.167 Amount Diltiazem 125 mg In 107.167 Sodium Chloride 0.9% 100 ml @ 5 MG/HR 5 mls/hr IV .Q24H [facility] Rx#:[id number] - Labs CBC & Chem 7: 06/15/23 15:23 06/15/23 15:23 Labs: Abnormal Lab Results - Last 24 Hours (Table) 06/15/23 06/15/23 06/15/23 Range/Units 15:23 15:23 15:23 WBC 15.0 H (3.8-10.6) k/uL RDW 16.3 H (11.5-15.5) % Plt Count 125 L (150-450) k/uL Neutrophils # 14.2 H (1.3-7.7) k/uL Lymphocytes # 0.3 L (1.0-4.8) k/uL APTT 30.5 H (22.0-30.0) sec Creatinine 0.51 L (0.66-1.25) mg/dL POC Glucose (mg/dL) (70-110) mg/dL Total Bilirubin 1.9 H (0.2-1.3) mg/dL Total Protein 5.3 L (6.3-8.2) g/dL Albumin 3.0 L (3.5-5.0) g/dL 06/16/23 06/16/23 Range/Units 02:29 07:11 WBC (3.8-10.6) k/uL RDW (11.5-15.5) % Plt Count (150-450) k/uL Neutrophils # (1.3-7.7) k/uL Lymphocytes # (1.0-4.8) k/uL APTT (22.0-30.0) sec Creatinine (0.66-1.25) mg/dL POC Glucose (mg/dL) 142 H 115 H (70-110) mg/dL Total Bilirubin (0.2-1.3) mg/dL Total Protein (6.3-8.2) g/dL Albumin (3.5-5.0) g/dL
--- NOTE | 2023-06-16 14:03 | P.CRDCN ---
History of Present Illness Consult date: 06/16/23 History of present illness: HISTORY OF PRESENTING ILLNESS 68-year-old male with past medical history of atrial fibrillation status post cardioversion in December 2020. Since then he has stayed out of atrial fibrillation. In December 2020 he also had left and right heart catheterization left heart showed that he has mild nonobstructive disease. Right heart showed mild pulmonary hypertension, normal pulmonary vascular resistance, no step up on oxygen saturations. He was managed on Eliquis and has had 2 episodes of GI bleeding in past while being with systemic and evaluation. This time he presented to the hospital because of worsening shortness of breath. His chest x-ray admission shows concerns of bilateral multifocal pneumonia. He also had some fever and chills at home and along with increased coughing. On admission he is noticed to have atrial ablation with rapid ventricular response. Labs on admission WBC 15, platelets 125, hemoglobin 14, sodium 137, potassium 3.8, creatinine 0.5, troponin negative. BNP 2000 REVIEW OF SYSTEMS 14 point review of system is negative except what is mentioned above in HPI. PHYSICAL EXAMINATION Vital signs reviewed. Head: Normocephalic. Eyes: Sclerae nonicteric. Neck: Brisk carotid upstroke, no jugular venous distention. Lungs: Diffuse crackles and rhonchi in bilateral lung breen Heart: Irregularly irregular and rhythm, S1-S2, no S3, systolic murmur Abdomen: Soft nontender, positive bowel sounds no organomegaly. Extremities: No edema, intact distal pulses. Neuro: Alert, oritented, no focal deficits ASSESSMENT Atrial fibrillation with rapid ventricular response. Last cardioversion December 2020. Was in sinus rhythm since. Most likely relapse due to sepsis and pneumonia Bicuspid aortic valve with moderate aortic stenosis Mild pulmonary hypertension Acute hypoxic respiratory failure thrombocytopenia Prior history of GI bleeding on anticoagulation Sepsis Multifocal pneumonia PLAN Continue Eliquis 5 mg twice a day Continue Cardizem drip. We will transition to by mouth Cardizem tomorrow Continue IV antibiotics for pneumonia Obtain computed tomography scan for possible multifocal pneumonia Obtain an echocardiogram Past Medical History Past Medical History: No Reported History, Atrial Fibrillation, Atrial Flutter, Asthma, Heart Failure, COPD, Diabetes Mellitus, GERD/Reflux, Hyperlipidemia, Hypertension, Osteoarthritis (OA), Pneumonia, Prostate Disorder, Pulmonary Embolus (PE), Skin Disorder, Sleep Apnea/CPAP/BIPAP Additional Past Medical History / Comment(s): CPAP use. Neuropathy bilateral feet, dermatitis, enlarged prostate, PE found in 07/2003 while hospitalized for pneumonia, spinal stenosis, degenerative scoliosis, migraines, palpitations, "bleeds easily", hospitalized in August w/influenza-can't seem to "shake" cough. SOB and fatigue last few months. History of Any Multi-Drug Resistant Organisms: None Reported Past Surgical History: Bowel Resection, Heart Catheterization, Hernia Repair, Joint Replacement, Orthopedic Surgery, Tonsillectomy Additional Past Surgical History / Comment(s): Bilateral hip replacements, b ilateral cataracts removed, hiatal hernia repair, incisional hernia repair with mesh-had bowel complication that resulted in a bowel resection, bronchoscopies, colonoscopy, ulna nerve right elbow surgery, cardioversion, ARNOL. Past Anesthesia/Blood Transfusion Reactions: Previous Problems w/ Anesthesia, Family History of Problems w/ Anesthesia Additional Past Anesthesia/Blood Transfusion Reaction / Comment(s): Problem with being "twilighted" - becomes very combative. Slow to wake up. Uncle has same symptoms with "twilight". Past Psychological History: Depression Smoking Status: Former smoker Past Alcohol Use History: None Reported Past Drug Use History: None Reported - Past Family History Father Family Medical History: Cancer Additional Family Medical History / Comment(s): Prostrate cancer. Mother Family Medical History: Cancer Additional Family Medical History / Comment(s): Skin cancer. Brother(s) Family Medical History: Cancer Additional Family Medical History / Comment(s): Brother of lung cancer. Medications and Allergies Home Medications Medication Instructions Recorded Confirmed Type Pregabalin [Lyrica] 300 mg PO BID 08/18/17 06/15/23 History Montelukast Sodium [Singulair] 10 mg PO HS 01/29/18 06/15/23 History Furosemide [Lasix] 20 mg PO BID 07/11/18 06/15/23 History Potassium Chloride [K-Tab ER] 20 meq PO BID 07/11/18 06/15/23 History Betamethasone Dipropionate 1 applic TOPICAL BID PRN 09/02/18 06/15/23 History [Betamethasone Dipropionate 0.05% Cream] Fluticasone Nasal [place] [Flonase 2 spr EA NOSTRIL HS 06/28/19 06/15/23 History Nasal [place]] Ipratropium-Albuterol Nebulize 3 ml INHALATION RT-QID PRN 06/28/19 06/15/23 History [Duoneb 0.5 mg-3 mg/3 ml Soln] dilTIAZem HCL [Cartia Xt] 120 mg PO DAILY 06/28/19 06/15/23 History Ipratropium [place] 0.06%Nasal 2 spray EA NOSTRIL DAILY 06/30/19 06/15/23 History [Atrovent Nasal 0.06%] Albuterol Sulfate [Ventolin HFA] 2 puff INHALATION RT-QID PRN 05/21/21 06/15/23 History Betamethasone Dipropionate 1 applic TOPICAL DAILY PRN 05/21/21 06/15/23 History [Betamethasone Diprop Augm Gel 0.05%] Diclofenac Sodium Gel [Voltaren 1% 1 applic TOPICAL QID PRN 05/21/21 06/15/23 History Gel] Ketoconazole 2% Shampoo [Nizoral] 1 applic TOPICAL DAILY PRN 05/21/21 06/15/23 H istory metFORMIN HCL [Glucophage] 1,000 mg PO BID 05/21/21 06/15/23 History Budesonide [Pulmicort] 0.5 mg INHALATION RT-BID PRN 01/01/23 06/15/23 History Fluticasone/Umeclidin/Vilanter 1 puff INHALATION RT-DAILY 01/01/23 06/15/23 History [Trelegy Ellipta 200-62.5-25] Formoterol Fumarate [Perforomist] 20 mcg INHALATION RT-BID PRN 01/01/23 06/15/23 History Pravastatin Sodium [Pravachol] 40 mg PO HS 01/01/23 06/15/23 History Sertraline [Zoloft] 100 mg PO DAILY 01/01/23 06/15/23 History traMADol HCL 100 mg PO Q6H PRN 01/01/23 06/15/23 History Ferrous Sulfate [Feosol] 325 mg PO DAILY #30 tab 01/07/23 06/15/23 Rx Pantoprazole [Protonix] 40 mg PO AC-BRKFST #30 tab 01/07/23 06/15/23 Rx Apixaban [Eliquis] 2.5 mg PO BID 06/15/23 06/15/23 History Collagenase [Santyl Ointment] 1 applic TOPICAL DAILY PRN 06/15/23 06/15/23 History HYDROcodone/APAP 5-325MG [[place] 1 tab PO BID PRN 06/15/23 06/15/23 History 5-325] Allergies Allergy/AdvReac Type Severity Reaction Status Date / Time gemfibrozil [From Lopid] Allergy Unknown Verified 06/15/23 17:19 aspirin AdvReac Abdominal Verified 06/15/23 17:19 Pain ceftriaxone [From Rocephin] AdvReac Diarrhea Verified 06/15/23 17:19 fentanyl AdvReac Hallucinati Verified 06/15/23 17:19 ons moxifloxacin [From Avelox] AdvReac Unknown Verified 06/15/23 17:19 Physical Exam Vitals: Vital Signs Temp Pulse Resp BP Pulse Ox 06/16/23 13:35 117 H 24 95/73 94 L 06/16/23 12:54 111 H 18 06/16/23 12:46 111 H 18 06/16/23 08:50 113 H 18 06/16/23 08:39 93 18 96 06/16/23 06:30 93 18 100/73 95 06/16/23 06:00 87 20 97/67 94 L 06/16/23 05:30 85 20 91/64 92 L 06/16/23 05:00 101 H 22 83/61 93 L 06/16/23 04:00 100 19 99/59 95 06/16/23 03:30 89 18 82/60 94 L 06/16/23 03:00 110 H 22 88/72 91 L 06/16/23 02:30 90 20 86/59 92 L 06/16/23 02:27 91 19 86/64 93 L 06/16/23 02:00 105 H 22 86/64 95 06/16/23 01:30 108 H 20 98/69 94 L 06/16/23 01:16 97 18 83/54 93 L 06/16/23 00:30 107 H 20 70/58 92 L 06/16/23 00:00 133 H 19 82/65 93 L 06/15/23 22:30 130 H 17 89/66 92 L 06/15/23 22:00 129 H 21 89/66 91 L 06/15/23 21:30 131 H 20 110/50 91 L 06/15/23 21:00 130 H 24 92/74 91 L 06/15/23 20:28 121 H 06/15/23 20:03 117 H 06/15/23 20:00 135 H 18 85/63 91 L 06/15/23 19:30 124 H 18 77/64 94 L 06/15/23 19:00 125 H 22 87/54 94 L 06/15/23 18:01 97.6 F 133 H 22 102/43 93 L 06/15/23 16:20 120 H 06/15/23 16:06 112 H 06/15/23 15:18 101.2 F H 154 H 24 119/81 90 L Intake and Output 06/15/23 06/16/23 06/16/23 22:59 06:59 14:59 Intake Total 107.167 Balance 107.167 Intake: Intake, IV Titration 107.167 Amount Diltiazem 125 mg In 107.167 Sodium Chloride 0.9% 100 ml @ 5 MG/HR 5 mls/hr IV .Q24H [facility] Rx#:[id number] Other: Weight 112.491 kg Results 06/15/23 15:23 06/15/23 15:23 Cardiac Enzymes 06/15/23 06/15/23 Range/Units 15:23 15: AST 33 (17-59) U/L Troponin I 0.017 (0.000-0.034) ng/mL Coagulation 06/15/23 Range/Units 15:23 PT 10.3 (10.0-12.5) sec APTT 30.5 H (22.0-30.0) sec CBC 06/15/23 Range/Units 15:23 WBC 15.0 H (3.8-10.6) k/uL RBC 4.61 (4.30-5.90) m/uL Hgb 14.3 (13.0-17.5) gm/dL Hct 42.7 (39.0-53.0) % Plt Count 125 L (150-450) k/uL Comprehensive Metabolic Panel 06/15/23 Range/Units 15:23 Sodium 137 (137-145) mmol/L Potassium 3.8 (3.5-5.1) mmol/L Chloride 102 (98-107) mmol/L Carbon Dioxide 25 (22-30) mmol/L BUN 18 (9-20) mg/dL Creatinine 0.51 L (0.66-1.25) mg/dL Glucose 99 (74-99) mg/dL Calcium 9.3 (8.4-10.2) mg/dL AST 33 (17-59) U/L ALT 29 (4-49) U/L Alkaline Phosphatase 99 (38-126) U/L Total Protein 5.3 L (6.3-8.2) g/dL Albumin 3.0 L (3.5-5.0) g/dL Current Medications Generic Name Dose Route Start Last Admin Trade Name Freq PRN Reason Stop Dose Admin Hydrocodone Bitart/Acetaminophen 1 each 06/15/23 22:23 06/16/23 13:31 Hydrocodone/Apap 5-325mg 1 Each Tab PO 1 each BID PRN Administration Pain Albuterol/Ipratropium 3 ml 06/16/23 12:00 06/16/23 12:46 Ipratropium-Albuterol 3 Ml Neb INHALATION 3 ml RT-QID ARIANE Administration Albuterol/Ipratropium 3 ml 06/16/23 09:41 Ipratropium-Albuterol 3 Ml Neb INHALATION RT-Q2H PRN Shortness Of Breath Or Wheezing Apixaban 2.5 mg 06/15/23 22:30 06/16/23 13:31 Apixaban 2.5 Mg Tablet PO 2.5 mg BID ARIANE Administration Protocol Budesonide/Formoterol Fumarate 2 puff 06/16/23 08:00 06/16/23 08:39 Symbicort 80-4.5 Mcg Inhaler INHALATION 2 puff RT-BID ARIANE Administration Dextrose/Water 25 ml 06/16/23 01:56 Dextrose 50% Syringe 50 Ml IVP PER PROTOCOL PRN Hypoglycemia Protocol Dextrose/Water 50 ml 06/16/23 01:56 Dextrose 50% Syringe 50 Ml IVP PER PROTOCOL PRN Hypoglycemia Protocol Diclofenac Sodium 2 gm 06/15/23 23:12 06/16/23 02:20 Diclofenac Sodium Gel 100 Gm Tube TOPICAL 2 gm QID PRN Administration Pain Protocol Ferrous Sulfate 325 mg 06/17/23 09:00 Ferrous Sulfate 325 Mg Tab PO DAILY ARIANE Fluticasone Propionate 2 spray 06/16/23 21:00 Fluticasone 50mcg/[place] Nasal 16gm EA NOSTRIL HS [facility] Furosemide 20 mg 06/16/23 21:00 Furosemide 20 Mg Tab PO BID ARIANE Diltiazem HCl 125 mg/ Sodium 125 mls @ 5 mls/hr 06/15/23 15:30 06/16/23 13:40 Chloride IV 5 mg/hr .Q24H ARIANE 5 mls/hr Administration 5 MG/HR Sodium Chloride 1,000 mls @ 50 mls/hr 06/15/23 19:00 06/16/23 05:10 Saline 0.9% IV 100 mls/hr .Q20H ARIANE Administration Levofloxacin 750 mg/ IV 150 mls @ 100 mls/hr 06/16/23 02:00 06/16/23 02:14 Solution IVPB 100 mls/hr Q24H ARIANE Administration Protocol Insulin Aspart 0 unit 06/16/23 07:30 06/16/23 07:39 Insulin Aspart (Novolog) 100 Unit/Ml Vial SQ Not Given ACHS ARIANE Protocol Methylprednisolone Sodium Succinate 60 mg 06/16/23 12:00 06/16/23 13:31 Methylprednisolone Sod Succi 125 Mg/2 Ml Vial IV 60 mg Q6HR ARIANE Administration Miscellaneous Information 1 each 06/15/23 18:52 Pneumonia Protocol Utilized 1 Each Misc PO ONCE PRN Per Protocol Montelukast Sodium 10 mg 06/15/23 22:30 06/15/23 23:07 Montelukast 10 Mg Tab PO 10 mg HS ARIANE Administration Pantoprazole Sodium 40 mg 06/16/23 07:30 06/16/23 13:31 Pantoprazole 40 Mg Tablet PO 40 mg AC-BRKFST ARIANE Administration Pravastatin Sodium 40 mg 06/15/23 22:30 06/15/23 23:07 Pravastatin Sodium 40 Mg Tab PO 40 mg HS ARIANE Administration Pregabalin 300 mg 06/15/23 22:30 06/16/23 13:30 Pregabalin 100 Mg Cap PO 300 mg BID ARIANE Administration Sertraline HCl 100 mg 06/16/23 09:00 06/16/23 13:31 Sertraline 100 Mg Tab PO 100 mg DAILY ARIANE Administration Zolpidem Tartrate 5 mg 06/16/23 01:48 06/16/23 03:15 Zolpidem 5 Mg Tab PO 5 mg HS PRN Administration Insomnia Intake and Output 06/15/23 06/16/23 06/16/23 22:59 06:59 14:59 Intake Total 107.167 Balance 107.167 Intake: Intake, IV Titration 107.167 Amount Diltiazem 125 mg In 107.167 Sodium Chloride 0.9% 100 ml @ 5 MG/HR 5 mls/hr IV .Q24H [facility] Rx#:[id number] Other: Weight 112.491 kg 06/15/23 15:23 06/15/23 15:23
[2023-06-16 14:37] LABS: Anisocytosis Slight; HCT 37.8 % (39.0-53.0); HGB 12.1 gm/dL (13.0-17.5); MCH 30.4 pg (25.0-35.0); MCHC 31.9 g/dL (31.0-37.0); MCV 95.2 fL (80.0-100.0); Mean Platelet Volume 10.5; Platelet Count 131 k/uL (150-450); RBC 3.97 m/uL (4.30-5.90); RDW 16.3 % (11.5-15.5); WBC 13.2 k/uL (3.8-10.6)
[2023-06-16 14:49] LABS: African American GFR (CKD) >90 (>60 ml/min/1.73 sqM); Anion Gap 13 mmol/L; Blood Urea Nitrogen 26 mg/dL (9-20); Calcium 9.2 mg/dL (8.4-10.2); Carbon Dioxide 21 mmol/L (22-30); Chloride 104 mmol/L (98-107); Glucose 104 mg/dL (74-99); Magnesium 2.1 mg/dL (1.6-2.3); Non-African American GFR(CKD) >90 (>60 ml/min/1.73 sqM); Potassium 3.6 mmol/L (3.5-5.1); Sodium 138 mmol/L (137-145)
--- NOTE | 2023-06-16 15:23 | CT ---
EXAMINATION TYPE: CT chest wo con CT DLP: 646.6 mGycm, Automated exposure control for dose reduction was used. DATE OF EXAM: 06/16/2023 2:56 PM COMPARISON: CT chest 05/07/2019, chest radiograph 06/16/2023 CLINICAL INDICATION:Male, 68 years old with history of pneumonia; PHH, SOB TECHNIQUE: Multiple axial images were obtained through the chest. Sagittal and coronal reformats were created for review. Contrast used: mL of (None if empty) Oral contrast used: (None if empty) FINDINGS: LUNGS/ PLEURA: Multifocal patchy airspace opacities which are groundglass and consolidative predomina ntly in the right but also affecting the left. AIRWAY: Patent and unremarkable. HEART: Heart is mildly enlarged for size. There is moderate coronary artery and aortic valve leaflet calcifications. MEDIASTINUM: Enlarged lymph nodes throughout the mediastinum are likely reactive. Example includes ri ght low paratracheal measuring up to 20 mm in short axis, AP window measuring up to 13 mm in short ax is and subcarinal measuring up to 12 mm in short axis. VASCULATURE: No aortic aneurysm. MUSCULOSKELETAL: Moderate disc degeneration changes are present throughout the thoracolumbar spine. SOFT TISSUES/LYMPH NODES: Unremarkable. LOWER NECK: No significant findings. UPPER ABDOMEN: No significant findings. IMPRESSION: 1. Multifocal pneumonia. 2. Mediastinal lymphadenopathy likely reactive and secondary to #1.
[2023-06-16 16:28] LABS: Glucose,Whole Blood 113 mg/dL (70-110)
--- NOTE | 2023-06-16 18:49 | CA ---
Transthoracic Echo Report Name: Jaquan Shoemaker Age: 68 Gender: M : 1955 Exam Date: 06/16/2023 11:43 Exam Location: [facility] Ht (in): 74 Wt (lb): 248 Ordering Physician: Polo Baeza MD ([email or web address]) Attending/Referring Phys: Electronic Operator Paulina Tracy RDCS Procedure CPT: Indications: afib Cardiac Hx: Technical Quality: Technically difficult study Contrast 1: Definity Total Dose (mL): 2 Contrast 2: Total Dose (mL): MEASUREMENTS (Male / Female) Normal Values 2D ECHO LV Diastolic Diameter PLAX 5.4 cm 4.2 - 5.9 / 3.9 - 5.3 cm LV Systolic Diameter PLAX 3.6 cm IVS Diastolic Thickness 1.2 cm 0.6 - 1.0 / 0.6 - 0.9 cm LVPW Diastolic Thickness 1.5 cm 0.6 - 1.0 / 0.6 - 0.9 cm LV Relative Wall Thickness 0.5 RV Internal Dim ED PLAX 3.9 cm LVOT Diameter 2.9 cm LA Systolic Diameter LX 4.3 cm 3.0 - 4.0 / 2.7 - 3.8 cm LA Volume 124.8 cm??? 18 - 58 / 22 - 52 cm??? LA Volume Index 50.9 cm???/m??? 16 - 28 cm???/m??? M-MODE Aortic Root Diameter MM 4.7 cm MV E Point Septal Separation 0.9 cm AV Cusp Separation MM 1.7 cm DOPPLER AV Peak Velocity 288.5 cm/s AV Peak Gradient 33.3 mmHg AV Mean Velocity 211.2 cm/s AV Mean Gradient 20.3 mmHg AV Velocity Time Integral 54.3 cm LVOT Peak Velocity 120.6 cm/s LVOT Peak Gradient 5.8 mmHg AV Area Cont Eq pk 2.7 cm??? MV Area PHT 4.5 cm??? MV Deceleration Time 182.8 ms MV E' Velocity 14.1 cm/s TR Peak Velocity 280.2 cm/s TR Peak Gradient 31.4 mmHg Right Ventricular Systolic Press 35.6 mmHg FINDINGS Left Ventricle Left ventricular ejection fraction is estimated at 55-60%. Mildly increased septal wall thickness. Left ventricular cavity size normal. Hyperdynamic left ventricular systolic function. Right Ventricle Overall normal RV size and global systolic function Right Atrium Normal right atrial size. Left Atrium Moderate LA dilatation Mitral Valve Mitral valve thickened. No mitral stenosis, regurgitation or prolapse. Aortic Valve Bicuspid aortic valve. Moderate aortic stenosis with mean gradient of 24 mmHg. no significant regurgitation Tricuspid Valve Tricuspid valve not well visualized. Mild tricuspid regurgitation. Pulmonic Valve Pulmonic valve not well visualized. Pericardium No pericardial effusion. Aorta Moderate aortic dilatation at the level of the sinuses of valsalva 45 mm. Ascending aorta not well visualized CONCLUSIONS Left ventricular ejection fraction is estimated at 55 %. Mild concentric LVH No obvious regional wall motion abnormality Moderate LA dilatation Bicuspid aortic valve with moderate stenosis, mean gradient 24 mmHg Dilated aortic root measuring at 4.5 cm. Ascending aorta not well visualized. Previewed by: Dr Polo Baeza (Electronically Signed) Final Date: 16 June 2023 18:48
[2023-06-16] MEDS ORDERED: AZITHROMYCIN 500 MG TAB PO SCH (19:00)
[2023-06-16 20:12] LABS: Glucose,Whole Blood 148 mg/dL (70-110)
[2023-06-16] MEDS ORDERED: FLUTICASONE 50MCG/SPRAY NASAL 16GM EA NOSTRIL SCH (21:00)
[2023-06-16] MEDS: PRAVASTATIN SODIUM 40 MG TAB PO SCH (21:24)
[2023-06-16] MEDS: FUROSEMIDE 20 MG TAB PO SCH (21:25)
[2023-06-16] MEDS: MONTELUKAST 10 MG TAB PO SCH (21:25)
--- NOTE | 2023-06-16 22:43 | P.CONS ---
History of Present Illness - Reason for Consult Consult date: 06/16/23 - History of Present Illness Patient is a 68-year-old male with a past medical history significant for atrial fibrillation atrial flutter heart failure COPD diabetes mellitus reflux hypertension hyperlipidemia osteoarthritis pneumonia patient presenting to the ER yesterday afternoon for evaluation of increasing shortness of breath and this patient symptom has been progressively getting worse over the last 3 days the patient started having a fever and also noticed to have elevated heart rate that brought him to the hospital patient complaining of mostly shortness of breath on minimal exertion even at rest patient denies having any chest pain he did have a cough mild to moderate intensity but not bringing up any sputum. Denies having any nausea or vomiting no abdominal pain no diarrhea did have some urinary symptoms with recent with the patient has been evaluated on presentation to the hospital he did have a fever of 101.2 degrees for night patient was tachycardic not hypotensive he was hypoxic requiring supplemental oxygen patient did have a white count of 15,000 with a left shift creatinine 0.59 liver enzymes are normal influenza RSV and COVID testing was negative patient did have a chest x-ray multifocal airspace opacity concerning for pneumonia patient did have a allergies to ceftriaxone which is mostly diarrhea moxifloxacin from [facility] patient was started on Levaquin infectious disease was consulted for further management of antibiotic therapy Past Medical History Past Medical History: No Reported History, Atrial Fibrillation, Atrial Flutter, Asthma, Heart Failure, COPD, Diabetes Mellitus, GERD/Reflux, Hyperlipidemia, Hypertension, Osteoarthritis (OA), Pneumonia, Prostate Disorder, Pulmonary Embolus (PE), Skin Disorder, Sleep Apnea/CPAP/BIPAP Additional Past Medical History / Comment(s): CPAP use. Neuropathy bilateral feet, dermatitis, enlarged prostate, PE found in 07/2003 while hospitalized for pneumonia, spinal stenosis, degenerative scoliosis, migraines, palpitations, "bleeds easily", hospitalized in August w/influenza-can't seem to "shake" cough. SOB and fatigue last few months. History of Any Multi-Drug Resistant Organisms: None Reported Past Surgical History: Bowel Resection, Heart Catheterization, Hernia Repair, Joint Replacement, Orthopedic Surgery, Tonsillectomy Additional Past Surgical History / Comment(s): Bilateral hip replacements, bilateral cataracts removed, hiatal hernia repair, incisional hernia repair with mesh-had bowel complication that resulted in a bowel resection, bronchoscopies, colonoscopy, ulna nerve right elbow surgery, cardioversion, ARNOL. Past Anesthesia/Blood Transfusion Reactions: Previous Problems w/ Anesthesia, Family History of Problems w/ Anesthesia Additional Past Anesthesia/Blood Transfusion Reaction / Comm: Problem with being "twilighted" - becomes very combative. Slow to wake up. Uncle has same symptoms with "twilight". Past Psychological History: Depression Smoking Status: Former smoker Past Alcohol Use History: None Reported Past Drug Use History: None Reported - Past Family History Father Family Medical History: Cancer Additional Family Medical History / Comment(s): Prostrate cancer. Mother Family Medical History: Cancer Additional Family Medical History / Comment(s): Skin cancer. Brother(s) Family Medical History: Cancer Additional Family Medical History / Comment(s): Brother of lung cancer. Medications and Allergies Home Medications Medication Instructions Recorded Confirmed Type Pregabalin [Lyrica] 300 mg PO BID 08/18/17 06/15/23 History Montelukast Sodium [Singulair] 10 mg PO HS 01/29/18 06/15/23 History Furosemide [Lasix] 20 mg PO BID 07/11/18 06/15/23 History Potassium Chloride [K-Tab ER] 20 meq PO BID 07/11/18 06/15/23 History Betamethasone Dipropionate 1 applic TOPICAL BID PRN 09/02/18 06/15/23 History [Betamethasone Dipropionate 0.05% Cream] Fluticasone Nasal [place] [Flonase 2 spr EA NOSTRIL HS 06/28/19 06/15/23 History Nasal [place]] Ipratropium-Albuterol Nebulize 3 ml INHALATION RT-QID PRN 06/28/19 06/15/23 History [Duoneb 0.5 mg-3 mg/3 ml Soln] dilTIAZem HCL [Cartia Xt] 120 mg PO DAILY 06/28/19 06/15/23 History Ipratropium [place] 0.06%Nasal 2 spray EA NOSTRIL DAILY 06/30/19 06/15/23 History [Atrovent Nasal 0.06%] Albuterol Sulfate [Ventolin HFA] 2 puff INHALATION RT-QID PRN 05/21/21 06/15/23 History Betamethasone Dipropionate 1 applic TOPICAL DAILY PRN 05/21/21 06/15/23 History [Betamethasone Diprop Augm Gel 0.05%] Diclofenac Sodium Gel [Voltaren 1% 1 applic TOPICAL QID PRN 05/21/21 06/15/23 History Gel] Ketoconazole 2% Shampoo [Nizoral] 1 applic TOPICAL DAILY PRN 05/21/21 06/15/23 History metFORMIN HCL [Glucophage] 1,000 mg PO BID 05/21/21 06/15/23 History Budesonide [Pulmicort] 0.5 mg INHALATION RT-BID PRN 01/01/23 06/15/23 History Fluticasone/Umeclidin/Vilanter 1 puff INHALATION RT-DAILY 01/01/23 06/15/23 History [Trelegy Ellipta 200-62.5-25] Formoterol Fumarate [Perforomist] 20 mcg INHALATION RT-BID PRN 01/01/23 06/15/23 History Pravastatin Sodium [Pravachol] 40 mg PO HS 01/01/23 06/15/23 History Sertraline [Zoloft] 100 mg PO DAILY 01/01/23 06/15/23 History traMADol HCL 100 mg PO Q6H PRN 01/01/23 06/15/23 History Ferrous Sulfate [Feosol] 325 mg PO DAILY #30 tab 01/07/23 06/15/23 Rx Pantoprazole [Protonix] 40 mg PO AC-BRKFST #30 tab 01/07/23 06/15/23 Rx Apixaban [Eliquis] 2.5 mg PO BID 06/15/23 06/15/23 History Collagenase [Santyl Ointment] 1 applic TOPICAL DAILY PRN 06/15/23 06/15/23 History HYDROcodone/APAP 5-325MG [[place] 1 tab PO BID PRN 06/15/23 06/15/23 History 5-325] Allergies Allergy/AdvReac Type Severity Reaction Status Date / Time gemfibrozil [From Lopid] Allergy Unknown Verified 06/15/23 17:19 aspirin AdvReac Abdominal Verified 06/15/23 17:19 Pain ceftriaxone [From Rocephin] AdvReac Diarrhea Verified 06/15/23 17:19 fentanyl AdvReac Hallucinati Verified 06/15/23 17:19 ons moxifloxacin [From Avelox] AdvReac Unknown Verified 06/15/23 17:19 Physical Exam Vitals: Vital Signs Temp Pulse Resp BP Pulse Ox 06/16/23 08:50 113 H 18 06/16/23 08:39 93 18 96 06/16/23 06:30 93 18 100/73 95 06/16/23 06:00 87 20 97/67 94 L 06/16/23 05:30 85 20 91/64 92 L 06/16/23 05:00 101 H 22 83/61 93 L 06/16/23 04:00 100 19 99/59 95 06/16/23 03:30 89 18 82/60 94 L 06/16/23 03:00 110 H 22 88/72 91 L 06/16/23 02:30 90 20 86/59 92 L 06/16/23 02:27 91 19 86/64 93 L 06/16/23 02:00 105 H 22 86/64 95 06/16/23 01:30 108 H 20 98/69 94 L 06/16/23 01:16 97 18 83/54 93 L 06/16/23 00:30 107 H 20 70/58 92 L 06/16/23 00:00 133 H 19 82/65 93 L 06/15/23 22:30 130 H 17 89/66 92 L 06/15/23 22:00 129 H 21 89/66 91 L 06/15/23 21:30 131 H 20 110/50 91 L 06/15/23 21:00 130 H 24 92/74 91 L 06/15/23 20:28 121 H 06/15/23 20:03 117 H 06/15/23 20:00 135 H 18 85/63 91 L 06/15/23 19:30 124 H 18 77/64 94 L 06/15/23 19:00 125 H 22 87/54 94 L 06/15/23 18:01 97.6 F 133 H 22 102/43 93 L 06/15/23 16:20 120 H 06/15/23 16:06 112 H 06/15/23 15:18 101.2 F H 154 H 24 119/81 90 L Intake and Output 06/15/23 06/16/23 06/16/23 22:59 06:59 14:59 Other: Weight 112.491 kg Results CBC & Chem 7: 06/16/23 14:08 06/16/23 14:08 Labs: Abnormal Lab Results - Last 24 Hours (Table) 06/15/23 06/15/23 06/15/23 Range/Units 15:23 15: 15:23 WBC 15.0 H (3.8-10.6) k/uL RDW 16.3 H (11.5-15.5) % Plt Count 125 L (150-450) k/uL Neutrophils # 14.2 H (1.3-7.7) k/uL Lymphocytes # 0.3 L (1.0-4.8) k/uL APTT 30.5 H (22.0-30.0) sec Creatinine 0.51 L (0.66-1.25) mg/dL POC Glucose (mg/dL) (70-110) mg/dL Total Bilirubin 1.9 H (0.2-1.3) mg/dL Total Protein 5.3 L (6.3-8.2) g/dL Albumin 3.0 L (3.5-5.0) g/dL 06/16/23 06/16/23 Range/Units 02:29 07:11 WBC (3.8-10.6) k/uL RDW (11.5-15.5) % Plt Count (150-450) k/uL Neutrophils # (1.3-7.7) k/uL Lymphocytes # (1.0-4.8) k/uL APTT (22.0-30.0) sec Creatinine (0.66-1.25) mg/dL POC Glucose (mg/dL) 142 H 115 H (70-110) mg/dL Total Bilirubin (0.2-1.3) mg/dL Total Protein (6.3-8.2) g/dL Albumin (3.5-5.0) g/dL Assessment and Plan Plan: 1patient presented to hospital with sepsis in this patient who did have a fever tachycardia elevated white count source is likely pneumonia in this patient who did have a respiratory symptoms and evidence of multifocal pneumonia on the chest x-ray likely community-acquired 2-patient with allergies to ceftriaxone and moxifloxacin however ceftriaxone is mostly side effect rather than true allergy 3-we will obtain a sputum for Gram stain culture check a CRP and a procalcitonin 4-for now continue with the Levaquin has the patient did have resolution of his fever and white count is trending down We will follow on clinical condition and cultures to further adjust medication if needed Thank you for this consultation we will follow the patient along with you Dictation was produced using [employer] dictation software. please excuse any grammatical, word or spelling errors. Time with Patient: Greater than 30
[2023-06-17] MEDS: LEVOFLOXACIN 750MG-D5W PMX 750 MG in DEXTROSE/WATER 1 150ML.BAG IVPB SCH (02:51)
[2023-06-17] MEDS: SODIUM CHLORIDE 0.9% 1,000 ML IV SCH (02:53)
[2023-06-17 06:07] LABS: Glucose,Whole Blood 133 mg/dL (70-110)
[2023-06-17] MEDS: INSULIN ASPART (NovoLOG) 100 UNIT/ML VIAL SQ SCH ×4 (06:09→21:40)
[2023-06-17] MEDS: methylPREDNISolone SOD SUCCI 125 MG/2 ML VIAL IV SCH ×4 (06:17→23:51)
[2023-06-17] MEDS: PANTOPRAZOLE 40 MG TABLET PO SCH (06:18)
[2023-06-17] MEDS: IPRATROPIUM-ALBUTEROL 3 ML NEB INHALATION SCH ×4 (07:55→21:20)
[2023-06-17] MEDS: SYMBICORT 80-4.5 MCG INHALER INHALATION SCH ×2 (07:55→21:20)
[2023-06-17] MEDS: PREGABALIN 100 MG CAP PO SCH ×2 (08:12→20:03)
[2023-06-17] MEDS: FUROSEMIDE 20 MG TAB PO SCH ×2 (08:12→20:03)
[2023-06-17] MEDS: FLUTICASONE 50MCG/SPRAY NASAL 16GM EA NOSTRIL SCH ×2 (08:12→20:03)
[2023-06-17] MEDS: FERROUS SULFATE 325 MG TAB PO SCH (08:12)
[2023-06-17] MEDS: SERTRALINE 100 MG TAB PO SCH (08:12)
[2023-06-17] MEDS: APIXABAN 2.5 MG TABLET PO SCH ×2 (08:12→20:02)
[2023-06-17] MEDS ORDERED: LACTOBACILLUS ACIDOPHILUS/PECT 1 EACH CAPSULE PO SCH (09:30)
[2023-06-17] MEDS: guaiFENesin 600 MG TABLET.ER PO SCH ×2 (09:33→20:03)
[2023-06-17] MEDS: HYDROcodone/APAP 5-325MG 1 EACH TAB PO PRN ×2 (09:33→20:03)
[2023-06-17 09:47] LABS: Anisocytosis Slight; HCT 35.9 % (39.0-53.0); HGB 11.8 gm/dL (13.0-17.5); MCH 30.6 pg (25.0-35.0); MCHC 32.8 g/dL (31.0-37.0); MCV 93.2 fL (80.0-100.0); Platelet Count 122 k/uL (150-450); RBC 3.85 m/uL (4.30-5.90); RDW 16.5 % (11.5-15.5); WBC 10.5 k/uL (3.8-10.6)
[2023-06-17 10:05] LABS: African American GFR (CKD) >90 (>60 ml/min/1.73 sqM); Anion Gap 12 mmol/L; Blood Urea Nitrogen 28 mg/dL (9-20); Calcium 9.3 mg/dL (8.4-10.2); Carbon Dioxide 19 mmol/L (22-30); Chloride 107 mmol/L (98-107); Glucose 199 mg/dL (74-99); Magnesium 2.1 mg/dL (1.6-2.3); Non-African American GFR(CKD) >90 (>60 ml/min/1.73 sqM); Potassium 3.8 mmol/L (3.5-5.1); Sodium 138 mmol/L (137-145)
[2023-06-17 11:07] LABS: T4, Free (Free Thyroxine) 1.17 ng/dL (0.78-2.19)
--- NOTE | 2023-06-17 11:35 | P.PN ---
Subjective Progress Note Date: 06/17/23 Patient is a 68 yo male with a know A fib anticoagulated with eliquis, COPD on home O2 as needed, DM2, GERD, HTN, HLD, and multiple toehr comorbid conditions who presented to the ED with complaints of shortness of breath and fevers. The ER he was noted to be febrile with a temp of 101.2 and a pulse of 154 and was satting 90% on 15 L nonrebreather. Laboratory analysis remarkable for white blood cell count 15, platelets 125. Influenza A/B/RC/COVID-19 PCR was negative. BNP mildly elevated at 2110. EKG demonstrated atrial fibrillation with rapid ventricular response. Chest x-ray demonstrated bilateral multifocal pneumonia. Patient seen and examined at bedside. He continues to have shortness of breath, he is feeling vary congested. He had some nausea, no diarrhea. Vital signs reviewed General: ill appearing, no distress, appears at stated age Cardiovascular: S1S2 irreg, no murmur, positive posterior tibial pulse bilateral, Lungs: course bs b/l with diffuse wheezing, no conversation dyspnea,no accessory muscle use Abdominal: soft, nontender to palpation, no guarding, no appreciable organomegaly Ext: no gross muscle atrophy, trace edema b/l lower extremities, no contractures Neuro: CN II-XI grossly intact, no focal neuro deficits Psych: Alert, oriented, appropriate affect Assessment/Plan: Community acquired multifocal pneumonia, likely strep Strep Bacteremia Acute on chronic hypoxic respiratory failure, uses as needed oxygen at home Sepsis Acute exacerbation of COPD - Patient with ADR to rocephin with diarrhea and he refuses to take this medication - Levaquin 750 mg IVPB daily D# 3 - Await sputum culture, legionella urine antigen - Douneb 4 times daily and every 2 hours as needed, and Zocor 2 puffs twice da thea - Solu-Medrol IV 60 mg every 6 hours - Continue Singular - Wean O2 as able - Add mucinex 1200 mg PO BID - Await bacteria specification from blood culture and repeat Blood cultures - ID note reviewed from yesterday: continue with levaquin - Increase norco to [id number] prn Paroxysmal Atrial fibrillation with rapid ventricular response, Bicuspid aortic valve with moderate Hypertension Dyslipidemia Diastolic Congestive heart failure with mild exacerbation, EF of 50-55% -Lasix 20 mg PO BID -Continue with diltiazem 5 mg/h -Continue with Eliquis 2.5 mg twice daily -cardio note reviewed from yesterday: Cardizem for another 24 hours IV and than transition to by mouth-- will await reeval before chagin with HR still >110. Thrombocytopenia - suspect reactive to acute illness. - no indication for transfusion - Repeat CBC in AM Diabetes mellitus type 2 -Hold metformin -Sliding-scale insulin Chronic: See arthritis Prior pulmonary embolism Obstructive sleep apnea Neuropathy Spinal stenosis Imaging: Echo: Fraction 55-60%, hyperdynamic left ventricle, bicuspid aortic valve with moderate aortic stenosis Data Review: Labs reviewed from today include CBC and basic metabolic profile as well as magnesium and TSH which are remarkable for hemoglobin 11.8, platelet count 122, carbon dioxide 19, BUN 28, creatinine 0.51. TSH is 0.456, free T4 currently pending DVT prophylaxis: Eliquis Anticipated discharge date: Pending Clinical Course Anticipated discharge place: Pending Clinical Course This dictation was prepared using [employer] voice recognition software. Though every attempt is made to correct errors during dictation some may still exist. Objective - Vital Signs Vital signs: Vital Signs Temp 98.1 F 06/17/23 08:09 Pulse 104 H 06/17/23 08:11 Resp 17 06/17/23 08:09 BP 137/81 06/17/23 08:09 Pulse Ox 92 L 06/17/23 08:09 FiO2 Intake & Output 06/16/23 06/17/23 06/17/23 18:59 06:59 18:59 Intake Total 225.167 118 236 Output Total 100 520 Balance 125.167 -402 236 Weight 112.491 kg Intake: Intake, IV Titration 107.167 Amount Diltiazem 125 mg In 107.167 Sodium Chloride 0.9% 100 ml @ 5 MG/HR 5 mls/hr IV .Q24H COUNT INCLUDES [facility] Rx#:[id number] Oral 118 118 236 Output: Urine 100 520 Other: Voiding Method Urinal Urinal # Voids 1 1 - Labs CBC & Chem 7: 06/17/23 08:55 06/17/23 08:55 Labs: Abnormal Lab Results - Last 24 Hours (Table) 06/16/23 06/16/23 06/16/23 Range/Units 14:08 14:08 16:26 WBC 13.2 H (3.8-10.6) k/uL RBC 3.97 L (4.30-5.90) m/uL Hgb 12.1 L (13.0-17.5) gm/dL Hct 37.8 L (39.0-53.0) % RDW 16.3 H (11.5-15.5) % Plt Count 131 L (150-450) k/uL Carbon Dioxide 21 L (22-30) mmol/L BUN 26 H (9-20) mg/dL Creatinine 0.59 L (0.66-1.25) mg/dL Glucose 104 H (74-99) mg/dL POC Glucose (mg/dL) 113 H (70-110) mg/dL TSH (0.465-4.680) mIU/L 06/16/23 06/17/23 06/17/23 Range/Units 20:11 06:06 08:55 WBC (3.8-10.6) k/uL RBC 3.85 L (4.30-5.90) m/uL Hgb 11.8 L (13.0-17.5) gm/dL Hct 35.9 L (39.0-53.0) % RDW 16.5 H (11.5-15.5) % Plt Count 122 L (150-450) k/uL Carbon Dioxide (22-30) mmol/L BUN (9-20) mg/dL Creatinine (0.66-1.25) mg/dL Glucose (74-99) mg/dL POC Glucose (mg/dL) 148 H 133 H (70-110) mg/dL TSH (0.465-4.680) mIU/L 06/17/23 Range/Units 08:55 WBC (3.8-10.6) k/uL RBC (4.30-5.90) m/uL Hgb (13.0-17.5) gm/dL Hct (39.0-53.0) % RDW (11.5-15.5) % Plt Count (150-450) k/uL Carbon Dioxide 19 L (22-30) mmol/L BUN 28 H (9-20) mg/dL Creatinine 0.51 L (0.66-1.25) mg/dL Glucose 199 H (74-99) mg/dL POC Glucose (mg/dL) (70-110) mg/dL TSH 0.456 L (0.465-4.680) mIU/L Microbiology - Last 24 Hours (Table) 06/15/23 19:28 Blood Culture Gram Stain - Preliminary Blood 06/15/23 19:13 Blood Culture Gram Stain - Preliminary Blood
[2023-06-17 11:51] LABS: Glucose,Whole Blood 146 mg/dL (70-110)
[2023-06-17 14:23] VITALS: BMI 31.8
--- NOTE | 2023-06-17 15:02 | P.PN ---
Subjective Progress Note Date: 06/17/23 Principal diagnosis: Reason for follow-up is pneumonia and bacteremia. Patient is a 70-year-old male with multiple comorbidities presented to hospital because of shortness of breath and cough patient did have a fever elevated white count concerning for pneumonia subsequently blood cultures came back positive with strep pneumo On today's evaluation that is 06/17/2023, the patient did have resolution of his fever and is afebrile this morning patient is breathing comfortably currently requiring 6 L nasal cannula oxygen that is less than yesterday patient denies having any nausea no vomiting no abdominal pain and no diarrhea. The patient white count normalized to 10.5, creatinine 0.51 blood culture with Streptococcus pneumoniae Objective - Vital Signs Vital signs: Vital Signs Temp 98.4 F 06/17/23 12:16 Pulse 107 H 06/17/23 12:16 Resp 17 06/17/23 12:16 BP 134/74 06/17/23 12:16 Pulse Ox 94 L 06/17/23 12:16 FiO2 Intake & Output 06/16/23 06/17/23 06/17/23 18:59 06:59 18:59 Intake Total 225.167 118 236 Output Total 100 520 450 Balance 125.167 -402 -214 Weight 112.491 kg Intake: Intake, IV Titration 107.167 Amount Diltiazem 125 mg In 107.167 Sodium Chloride 0.9% 100 ml @ 5 MG/HR 5 mls/hr IV .Q24H [facility] Rx#:[id number] Oral 118 118 236 Output: Urine 100 520 450 Other: Voiding Method Urinal Urinal Urinal # Voids 1 1 1 - Exam GENERAL DESCRIPTION: An elderly male up in bed in no distress RESPIRATORY SYSTEM: Unlabored breathing , coarse breath sounds bilaterally HEART: S1 S2 regular rate and rhythm , ABDOMEN: Soft , no tenderness EXTREMITIES: No edema feet - Labs CBC & Chem 7: 06/17/23 08:55 06/17/23 08:55 Labs: Abnormal Lab Results - Last 24 Hours (Table) 06/16/23 06/16/23 06/16/23 Range/Units 14:08 14:08 16:26 WBC 13.2 H (3.8-10.6) k/uL RBC 3.97 L (4.30-5.90) m/uL Hgb 12.1 L (13.0-17.5) gm/dL Hct 37.8 L (39.0-53.0) % RDW 16.3 H (11.5-15.5) % Plt Count 131 L (150-450) k/uL Carbon Dioxide 21 L (22-30) mmol/L BUN 26 H (9-20) mg/dL Creatinine 0.59 L (0.66-1.25) mg/dL Glucose 104 H (74-99) mg/dL POC Glucose (mg/dL) 113 H (70-110) mg/dL TSH (0.465-4.680) mIU/L 06/16/23 06/17/23 06/17/23 Range/Units 20:11 06:06 08:55 WBC (3.8-10.6) k/uL RBC 3.85 L (4.30-5.90) m/uL Hgb 11.8 L (13.0-17.5) gm/dL Hct 35.9 L (39.0-53.0) % RDW 16.5 H (11.5-15.5) % Plt Count 122 L (150-450) k/uL Carbon Dioxide (22-30) mmol/L BUN (9-20) mg/dL Creatinine (0.66-1.25) mg/dL Glucose (74-99) mg/dL POC Glucose (mg/dL) 148 H 133 H (70-110) mg/dL TSH (0.465-4.680) mIU/L 06/17/23 06/17/23 Range/Units 08:55 11:50 WBC (3.8-10.6) k/uL RBC (4.30-5.90) m/uL Hgb (13.0-17.5) gm/dL Hct (39.0-53.0) % RDW (11.5-15.5) % Plt Count (150-450) k/uL Carbon Dioxide 19 L (22-30) mmol/L BUN 28 H (9-20) mg/dL Creatinine 0.51 L (0.66-1.25) mg/dL Glucose 199 H (74-99) mg/dL POC Glucose (mg/dL) 146 H (70-110) mg/dL TSH 0.456 L (0.465-4.680) mIU/L Microbiology - Last 24 Hours (Table) 06/15/23 19:28 Blood Culture Gram Stain - Preliminary Blood 06/15/23 19:13 Blood Culture Gram Stain - Preliminary Blood Assessment and Plan (1) Bacteremia Current Visit: Yes Status: Acute Code(s): R78.81 - BACTEREMIA SNOMED Code(s): 9805721 (2) Allergy to multiple antibiotics Current Visit: Yes Status: Acute Code(s): Z88.1 - ALLERGY STATUS TO OTHER ANTIBIOTIC AGENTS SNOMED Code(s): 523971505 (3) Pneumonia Current Visit: Yes Status: Acute Code(s): J18.9 - PNEUMONIA, UNSPECIFIED ORGANISM SNOMED Code(s): 627289387 Plan: 1patient presented to hospital with sepsis in this patient who did have a fever tachycardia elevated white count source is likely pneumonia in this patient who did have a respiratory symptoms and evidence of multifocal pneumonia on the chest x-ray likely community-acquired 2patient with Streptococcus pneumonia bacteremia source likely pneumonia 3patient with allergy to ceftriaxone reported has diarrhea which is more of a side effect I have detailed discussion with the patient keeping in mind his current infection, Rocephin will be a better choice patient did agree we will discontinue Levaquin and start the patient Rocephin 2 g daily probiotic has been added and The patient was advised to increase his yogurt intake Dictation was produced using [employer] dictation software. please excuse any grammatical, word or spelling errors. Time with Patient: Less than 30
[2023-06-17] MEDS: LACTOBACILLUS ACIDOPHILUS/PECT 1 EACH CAPSULE PO SCH ×2 (16:01→16:04)
[2023-06-17] MEDS: DILTIAZEM 125 MG in SODIUM CHLORIDE 0.9% 100 ML IV SCH (16:02)
[2023-06-17 16:26] LABS: Glucose,Whole Blood 173 mg/dL (70-110)
--- NOTE | 2023-06-17 18:26 | P.PN ---
Subjective Progress Note Date: 06/17/23 Progress note 06/17/2023 Patient is seen and examined at bedside the same. His blood cultures are positive for Streptococcus pneumoniae. Pro-calcitonin 7, TSH 0.4 131/89, heart rate 108 beats minute, atrial fibrillation HISTORY OF PRESENTING ILLNESS 68-year-old male with past medical history of atrial fibrillation status post cardioversion in December 2020. Since then he has stayed out of [facility]. In December 2020 he also had left and right heart catheterization left heart showed that he has mild nonobstructive disease. Right heart showed mild pulmonary hypertension, normal pulmonary vascular resistance, no step up on oxygen saturations. He was managed on Eliquis and has had 2 episodes of GI bleeding in past while being with systemic and evaluation. This time he presented to the hospital because of worsening shortness of breath. His chest x-ray admission shows concerns of bilateral multifocal pneumonia. He also had some fever and chills at home and along with increased coughing. On admission he is noticed to have atrial ablation with rapid ventricular response. Labs on admission WBC 15, platelets 125, hemoglobin 14, sodium 137, potassium 3.8, creatinine 0.5, troponin negative. BNP 2000 REVIEW OF SYSTEMS 14 point review of system is negative except what is mentioned above in HPI. PHYSICAL EXAMINATION Vital signs reviewed. Head: Normocephalic. Eyes: Sclerae nonicteric. Neck: Brisk carotid upstroke, no jugular venous distention. Lungs: Diffuse crackles and rhonchi in bilateral lung breen Heart: Irregularly irregular and rhythm, S1-S2, no S3, systolic murmur Abdomen: Soft nontender, positive bowel sounds no organomegaly. Extremities: No edema, intact distal pulses. Neuro: Alert, oritented, no focal deficits ASSESSMENT Atrial fibrillation with rapid ventricular response. Last cardioversion December 2020. Was in sinus rhythm since. Most likely relapse due to sepsis and pneumonia Bicuspid aortic valve with moderate aortic stenosis Dilated aortic root 4.5 cm Mild pulmonary hypertension Acute hypoxic respiratory failure thrombocytopenia Prior history of GI bleeding on anticoagulation Sepsis Multifocal pneumonia, streptococcal Echo showed EF 55%, moderate aortic stenosis, bicuspid aortic valve, dilated aortic root 4.5 cm PLAN Continue Eliquis 5 mg twice a day Continue Cardizem drip. We will transition to by mouth Cardizem tomorrow Continue IV antibiotics for pneumonia Avoid Levaquin because of dilated aorta Patient will outpatient follow-up and a possible aortic CTA to size it better. He will need a one-year follow-up aortic CTA thereafter Objective - Vital Signs Vital signs: Vital Signs Temp 97.7 F 06/17/23 16:07 Pulse 100 06/17/23 16:07 Resp 17 06/17/23 16:07 BP 131/89 06/17/23 16:07 Pulse Ox 92 L 06/17/23 16:07 FiO2 Intake & Output 06/16/23 06/17/23 06/17/23 18:59 06:59 18:59 Intake Total 225.167 118 601.583 Output Total 100 520 450 Balance 125.167 -402 151.583 Weight 112.491 kg 112.491 kg Intake: Intake, IV Titration 107.167 129.583 Amount Diltiazem 125 mg In 107.167 129.583 Sodium Chloride 0.9% 100 ml @ 5 MG/HR 5 mls/hr IV .Q24H [facility] Rx#:[id number] Oral 118 118 472 Output: Urine 100 520 450 Other: Voiding Method Urinal Urinal Urinal # Voids 1 1 1 - Labs CBC & Chem 7: 06/17/23 08:55 06/17/23 08:55 Labs: Abnormal Lab Results - Last 24 Hours (Table) 06/16/23 06/17/23 06/17/23 Range/Units 20:11 06:06 08:55 RBC 3.85 L (4.30-5.90) m/uL Hgb 11.8 L (13.0-17.5) gm/dL Hct 35.9 L (39.0-53.0) % RDW 16.5 H (11.5-15.5) % Plt Count 122 L (150-450) k/uL Carbon Dioxide (22-30) mmol/L BUN (9-20) mg/dL Creatinine (0.66-1.25) mg/dL Glucose (74-99) mg/dL POC Glucose (mg/dL) 148 H 133 H (70-110) mg/dL Procalcitonin (0.02-0.09) ng/mL TSH (0.465-4.680) mIU/L 06/17/23 06/17/23 06/17/23 Range/Units 08:55 08:55 11:50 RBC (4.30-5.90) m/uL Hgb (13.0-17.5) gm/dL Hct (39.0-53.0) % RDW (11.5-15.5) % Plt Count (150-450) k/uL Carbon Dioxide 19 L (22-30) mmol/L BUN 28 H (9-20) mg/dL Creatinine 0.51 L (0.66-1.25) mg/dL Glucose 199 H (74-99) mg/dL POC Glucose (mg/dL) 146 H (70-110) mg/dL Procalcitonin 7.26 H (0.02-0.09) ng/mL TSH 0.456 L (0.465-4.680) mIU/L 06/17/23 Range/Units 16:24 RBC (4.30-5.90) m/uL Hgb (13.0-17.5) gm/dL Hct (39.0-53.0) % RDW (11.5-15.5) % Plt Count (150-450) k/uL Carbon Dioxide (22-30) mmol/L BUN (9-20) mg/dL Creatinine (0.66-1.25) mg/dL Glucose (74-99) mg/dL POC Glucose (mg/dL) 173 H (70-110) mg/dL Procalcitonin (0.02-0.09) ng/mL TSH (0.465-4.680) mIU/L Microbiology - Last 24 Hours (Table) 06/15/23 19:28 Blood Culture Gram Stain - Preliminary Blood Blood Culture - Preliminary Streptococcus pneumoniae 06/15/23 19:13 Blood Culture Gram Stain - Preliminary Blood Blood Culture - Preliminary Streptococcus pneumoniae
[2023-06-17] MEDS: PRAVASTATIN SODIUM 40 MG TAB PO SCH (20:03)
[2023-06-17] MEDS: MONTELUKAST 10 MG TAB PO SCH (20:03)
[2023-06-17 20:25] LABS: Glucose,Whole Blood 178 mg/dL (70-110)
[2023-06-17] MEDS: ZOLPIDEM 5 MG TAB PO PRN (23:51)
[2023-06-18] MEDS: DILTIAZEM 125 MG in SODIUM CHLORIDE 0.9% 100 ML IV SCH (04:05)
[2023-06-18 06:02] LABS: Glucose,Whole Blood 147 mg/dL (70-110)
[2023-06-18] MEDS: INSULIN ASPART (NovoLOG) 100 UNIT/ML VIAL SQ SCH ×4 (06:02→20:30)
[2023-06-18] MEDS: methylPREDNISolone SOD SUCCI 125 MG/2 ML VIAL IV SCH ×4 (06:21→23:28)
[2023-06-18] MEDS: PANTOPRAZOLE 40 MG TABLET PO SCH (06:22)
[2023-06-18] MEDS: LACTOBACILLUS ACIDOPHILUS/PECT 1 EACH CAPSULE PO SCH ×3 (06:22→18:04)
[2023-06-18 08:35] LABS: African American GFR (CKD) >90 (>60 ml/min/1.73 sqM); Anion Gap 11 mmol/L; Blood Urea Nitrogen 25 mg/dL (9-20); Calcium 9.2 mg/dL (8.4-10.2); Carbon Dioxide 25 mmol/L (22-30); Chloride 105 mmol/L (98-107); Glucose 142 mg/dL (74-99); Magnesium 2.2 mg/dL (1.6-2.3); Non-African American GFR(CKD) >90 (>60 ml/min/1.73 sqM); Potassium 3.6 mmol/L (3.5-5.1); Sodium 141 mmol/L (137-145)
[2023-06-18 08:36] LABS: Anisocytosis Slight; HCT 38.1 % (39.0-53.0); HGB 12.3 gm/dL (13.0-17.5); MCH 30.2 pg (25.0-35.0); MCHC 32.2 g/dL (31.0-37.0); MCV 93.9 fL (80.0-100.0); Mean Platelet Volume 10.3; Platelet Count 138 k/uL (150-450); RBC 4.06 m/uL (4.30-5.90); RDW 16.4 % (11.5-15.5); WBC 8.2 k/uL (3.8-10.6)
[2023-06-18] MEDS: SYMBICORT 80-4.5 MCG INHALER INHALATION SCH ×2 (08:37→22:04)
[2023-06-18] MEDS: IPRATROPIUM-ALBUTEROL 3 ML NEB INHALATION SCH ×4 (08:37→22:04)
[2023-06-18] MEDS: guaiFENesin 600 MG TABLET.ER PO SCH ×2 (08:42→20:29)
[2023-06-18] MEDS: PREGABALIN 100 MG CAP PO SCH ×2 (08:42→20:29)
[2023-06-18] MEDS: APIXABAN 2.5 MG TABLET PO SCH ×2 (08:43→20:30)
[2023-06-18] MEDS: SERTRALINE 100 MG TAB PO SCH (08:43)
[2023-06-18] MEDS: FUROSEMIDE 20 MG TAB PO SCH ×2 (08:43→20:30)
[2023-06-18] MEDS: FERROUS SULFATE 325 MG TAB PO SCH (08:43)
[2023-06-18] MEDS ORDERED: DILTIAZEM CD 120 MG CAP.ER.24H PO SCH (09:00)
--- NOTE | 2023-06-18 10:29 | P.PN ---
Subjective Progress Note Date: 06/18/23 Patient is a 68 yo male with a know A fib anticoagulated with eliquis, COPD on home O2 as needed, DM2, GERD, HTN, HLD, and multiple toehr comorbid conditions who presented to the ED with complaints of shortness of breath and fevers. The ER he was noted to be febrile with a temp of 101.2 and a pulse of 154 and was satting 90% on 15 L nonrebreather. Laboratory analysis remarkable for white blood cell count 15, platelets 125. Influenza A/B/RC/COVID-19 PCR was negative. BNP mildly elevated at 2110. EKG demonstrated atrial fibrillation with rapid ventricular response. Chest x-ray demonstrated bilateral multifocal pneumonia. Infectious disease and cardiology were consulted. Echocardiogram revealed bicuspid aortic valve as well as a dilated aortic root at 1.5 cm. Blood cultures came back positive for strep pneumonia. It was felt that his blood cultures are likely related to his pneumonia both being caused by strep. His Levaquin was discontinued and he was started on Rocephin. Patient seen and examined at bedside. He reports he is feeling somewhat better than yesterday but still lower near his baseline. He denies any diarrhea since starting the Rocephin yesterday. He has been eating fairly well. Vital signs reviewed General: ill appearing, no distress, appears at stated age Cardiovascular: S1S2 irreg, no murmur, positive posterior tibial pulse bilateral, Lungs: course bs b/l with diffuse wheezing, no conversation dyspnea,no accessory muscle use Abdominal: soft, nontender to palpation, no guarding, no appreciable organomegaly Ext: no gross muscle atrophy, trace edema b/l lower extremities, no contractures Neuro: CN II-XI grossly intact, no focal neuro deficits Psych: Alert, oriented, appropriate affect Assessment/Plan: Community acquired multifocal pneumonia, likely strep Strep Bacteremia Acute on chronic hypoxic respiratory failure, uses as needed oxygen at home Sepsis Acute exacerbation of COPD - Infectious disease note reviewed from 06/17 patient transitioned to Rocephin given his Bacteremia. - Rocephin 2 g IVPB every 24 hours day #2 (patient also completed 2 days of Levaquin prior) - Await sputum culture, legionella urine antigen negative - Douneb 4 times daily and every 2 hours as needed, and Symbicort 2 puffs twice daily - Solu-Medrol IV 60 mg every 6 hours - Continue Singular - Wean O2 as able - Mucinex 1200 mg PO BID - Await repeat Blood cultures - [place] to [id number] prn - Lactobacillus 1 tablet 3 times daily Paroxysmal Atrial fibrillation with rapid ventricular response, Bicuspid aortic valve with moderate Dilated aortic root Hypertension Dyslipidemia Diastolic Congestive heart failure with mild exacerbation, EF of 50-55% - Patient's heart rates are better controlled in the 90s. We will resume his diltiazem 120 milligrams. Discontinue Cardizem drip. - Cardiology consult reviewed from 06/17 he recommends against Levaquin given patient's dilated aortic root at 4.5. -Lasix 20 mg PO BID -Continue with Eliquis 2.5 mg twice daily Thrombocytopenia - suspect reactive to acute illness. - no indication for transfusion - Repeat CBC in AM Diabetes mellitus type 2 -Hold metformin -Sliding-scale insulin -A1c 5.8 Chronic: See arthritis Prior pulmonary embolism Obstructive sleep apnea Neuropathy Spinal stenosis Imaging: None new Data Review: Labs reviewed from today includes CBC and basic metabolic profile which are remarkable for hemoglobin 12.3, platelets 138, BUN 25, creatinine 0.49. Blood sugars have been fairly well controlled given steroids at 133-178. DVT prophylaxis: Eliquis Anticipated discharge date: Pending Clinical Course Anticipated discharge place: Pending Clinical Course This dictation was prepared using [employer] voice recognition software. Though every attempt is made to correct errors during dictation some may still exist. Objective - Vital Signs Vital signs: Vital Signs Temp 97.8 F 06/17/23 19:58 Pulse 90 06/18/23 08:49 Resp 20 06/18/23 04:00 BP 120/86 06/18/23 04:00 Pulse Ox 90 L 06/18/23 04:00 FiO2 Intake & Output 06/17/23 06/18/23 06/18/23 18:59 06:59 18:59 Intake Total 601.583 111.333 120 Output Total 450 1300 Balance 151.583 -1188.667 120 Weight 112.491 kg Intake: Intake, IV Titration 129.583 111.333 Amount Diltiazem 125 mg In 129.583 111.333 Sodium Chloride 0.9% 100 ml @ 5 MG/HR 5 mls/hr IV .Q24H [facility] Rx#:[id number] Oral 472 120 Output: Urine 450 1300 Other: Voiding Method Urinal Urinal # Voids 1 - Labs CBC & Chem 7: 06/18/23 07:56 06/18/23 07:56 Labs: Abnormal Lab Results - Last 24 Hours (Table) 06/17/23 06/17/23 06/17/23 Range/Units 08:55 08:55 11:50 RBC (4.30-5.90) m/uL Hgb (13.0-17.5) gm/dL Hct (39.0-53.0) % RDW (11.5-15.5) % Plt Count (150-450) k/uL Carbon Dioxide 19 L (22-30) mmol/L BUN 28 H (9-20) mg/dL Creatinine 0.51 L (0.66-1.25) mg/dL Glucose 199 H (74-99) mg/dL POC Glucose (mg/dL) 146 H (70-110) mg/dL Procalcitonin 7.26 H (0.02-0.09) ng/mL TSH 0.456 L (0.465-4.680) mIU/L 06/17/23 06/17/23 06/18/23 Range/Units 16:24 20:24 06:00 RBC (4.30-5.90) m/uL Hgb (13.0-17.5) gm/dL Hct (39.0-53.0) % RDW (11.5-15.5) % Plt Count (150-450) k/uL Carbon Dioxide (22-30) mmol/L BUN (9-20) mg/dL Creatinine (0.66-1.25) mg/dL Glucose (74-99) mg/dL POC Glucose (mg/dL) 173 H 178 H 147 H (70-110) mg/dL Procalcitonin (0.02-0.09) ng/mL TSH (0.465-4.680) mIU/L 06/18/23 06/18/23 Range/Units 07:56 07:56 RBC 4.06 L (4.30-5.90) m/uL Hgb 12.3 L (13.0-17.5) gm/dL Hct 38.1 L (39.0-53.0) % RDW 16.4 H (11.5-15.5) % Plt Count 138 L (150-450) k/uL Carbon Dioxide (22-30) mmol/L BUN 25 H (9-20) mg/dL Creatinine 0.49 L (0.66-1.25) mg/dL Glucose 142 H (74-99) mg/dL POC Glucose (mg/dL) (70-110) mg/dL Procalcitonin (0.02-0.09) ng/mL TSH (0.465-4.680) mIU/L Microbiology - Last 24 Hours (Table) 06/15/23 19:28 Blood Culture Gram Stain - Preliminary Blood Blood Culture - Preliminary Streptococcus pneumoniae 06/15/23 19:13 Blood Culture Gram Stain - Preliminary Blood Blood Culture - Preliminary Streptococcus pneumoniae
[2023-06-18 11:42] LABS: Glucose,Whole Blood 256 mg/dL (70-110)
[2023-06-18] MEDS ORDERED: DILTIAZEM ORAL 60 MG TAB PO STA (14:18)
--- NOTE | 2023-06-18 14:21 | P.PN ---
Subjective Progress Note Date: 06/18/23 Progress note 06/18/2023 Patient is seen and examined at bedside the same. Patient is doing well from Ca rdec standpoint. He is rate controlled atrial fibrillation. 06/17/2023 Patient is seen and examined at bedside the same. His blood cultures are positive for Streptococcus pneumoniae. Pro-calcitonin 7, TSH 0.4 131/89, heart rate 108 beats minute, atrial fibrillation HISTORY OF PRESENTING ILLNESS 68-year-old male with past medical history of atrial fibrillation status post cardioversion in December 2020. Since then he has stayed out of atrial fibrillation. In December 2020 he also had left and right heart catheterization left heart showed that he has mild nonobstructive disease. Right heart showed mild pulmonary hypertension, normal pulmonary vascular resistance, no step up on oxygen saturations. He was managed on Eliquis and has had 2 episodes of GI bleeding in past while being with systemic and evaluation. This time he presented to the hospital because of worsening shortness of breath. His chest x-ray admission shows concerns of bilateral multifocal pneumonia. He also had some fever and chills at home and along with increased coughing. On admission he is noticed to have atrial ablation with rapid ventricular response. Labs on admission WBC 15, platelets 125, hemoglobin 14, sodium 137, potassium 3.8, creatinine 0.5, troponin negative. BNP 2000 REVIEW OF SYSTEMS 14 point review of system is negative except what is mentioned above in HPI. PHYSICAL EXAMINATION Vital signs reviewed. Head: Normocephalic. Eyes: Sclerae nonicteric. Neck: Brisk carotid upstroke, no jugular venous distention. Lungs: Diffuse crackles and rhonchi in bilateral lung breen Heart: Irregularly irregular and rhythm, S1-S2, no S3, systolic murmur Abdomen: Soft nontender, positive bowel sounds no organomegaly. Extremities: No edema, intact distal pulses. Neuro: Alert, oritented, no focal deficits ASSESSMENT Atrial fibrillation with rapid ventricular response. Last cardioversion December 2020. Was in sinus rhythm since. Most likely relapse due to sepsis and pneumonia Bicuspid aortic valve with moderate aortic stenosis Dilated aortic root 4.5 cm Mild pulmonary hypertension Acute hypoxic respiratory failure thrombocytopenia Prior history of GI bleeding on anticoagulation Sepsis Multifocal pneumonia, streptococcal Echo showed EF 55%, moderate aortic stenosis, bicuspid aortic valve, dilated aortic root 4.5 cm PLAN Continue Eliquis 5 mg twice a day d/c cardizem drip . Increase PO cardizem to Increase Cardizem 180 mg daily Continue IV antibiotics for pneumonia Avoid Levaquin because of dilated aorta Patient will outpatient follow-up and a possible aortic CTA to size it better. He will need a one-year follow-up aortic CTA thereafter He would also benefit from rhythm control strategy for atrial fibrillation. This should be evaluated on outpatient basis. Objective - Vital Signs Vital signs: Vital Signs Temp 99.2 F 06/18/23 11:44 Pulse 92 06/18/23 11:59 Resp 18 06/18/23 11:44 BP 140/87 06/18/23 11:44 Pulse Ox 94 L 06/18/23 11:44 FiO2 Intake & Output 06/17/23 06/18/23 06/18/23 18:59 06:59 18:59 Intake Total 601.583 111.333 360 Output Total 450 1300 400 Balance 151.583 -1188.667 -40 Weight 112.491 kg Intake: Intake, IV Titration 129.583 111.333 Amount Diltiazem 125 mg In 129.583 111.333 Sodium Chloride 0.9% 100 ml @ 5 MG/HR 5 mls/hr IV .Q24H [facility] Rx#:[id number] Oral 472 360 Output: Urine 450 1300 400 Other: Voiding Method Urinal Urinal Urinal # Voids 1 1 - Labs CBC & Chem 7: 06/18/23 07:56 06/18/23 07:56 Labs: Abnormal Lab Results - Last 24 Hours (Table) 06/17/23 06/17/23 06/18/23 Range/Units 16:24 20:24 06:00 RBC (4.30-5.90) m/uL Hgb (13.0-17.5) gm/dL Hct (39.0-53.0) % RDW (11.5-15.5) % Plt Count (150-450) k/uL BUN (9-20) mg/dL Creatinine (0.66-1.25) mg/dL Glucose (74-99) mg/dL POC Glucose (mg/dL) 173 H 178 H 147 H (70-110) mg/dL 06/18/23 06/18/23 06/18/23 Range/Units 07:56 07:56 11:40 RBC 4.06 L (4.30-5.90) m/uL Hgb 12.3 L (13.0-17.5) gm/dL Hct 38.1 L (39.0-53.0) % RDW 16.4 H (11.5-15.5) % Plt Count 138 L (150-450) k/uL BUN 25 H (9-20) mg/dL Creatinine 0.49 L (0.66-1.25) mg/dL Glucose 142 H (74-99) mg/dL POC Glucose (mg/dL) 256 H (70-110) mg/dL Microbiology - Last 24 Hours (Table) 06/15/23 19:28 Blood Culture Gram Stain - Final Blood Blood Culture - Final Streptococcus pneumoniae 06/15/23 19:13 Blood Culture Gram Stain - Final Blood Blood Culture - Final Streptococcus pneumoniae
--- NOTE | 2023-06-18 15:23 | P.PN ---
Subjective Progress Note Date: 06/18/23 Principal diagnosis: Reason for follow-up is pneumonia and bacteremia. Patient is a 70-year-old male with multiple comorbidities presented to hospital because of shortness of breath and cough patient did have a fever elevated white count concerning for pneumonia subsequently blood cultures came back positive with strep pneumo On today's evaluation that is 06/18/2023 the patient did have a low-grade fever of 99.8 F this morning, the patient is breathing comfortably on 6 L nasal cannula supplemental oxygen patient denies chest pain, shortness of breath, denies any worsening cough or sputum production the patient denies having any nausea no vomiting no abdominal pain and no diarrhea Patient white count is 8.2, creatinine 0.49, blood culture with Streptococcus pneumoniae Objective - Vital Signs Vital signs: Vital Signs Temp 99.2 F 06/18/23 11:44 Pulse 92 06/18/23 11:59 Resp 18 06/18/23 11:44 BP 140/87 06/18/23 11:44 Pulse Ox 94 L 06/18/23 11:44 FiO2 Intake & Output 06/17/23 06/18/23 06/18/23 18:59 06:59 18:59 Intake Total 601.583 111.333 360 Output Total 450 1300 400 Balance 151.583 -1188.667 -40 Weight 112.491 kg Intake: Intake, IV Titration 129.583 111.333 Amount Diltiazem 125 mg In 129.583 111.333 Sodium Chloride 0.9% 100 ml @ 5 MG/HR 5 mls/hr IV .Q24H [facility] Rx#:[id number] Oral 472 360 Output: Urine 450 1300 400 Other: Voiding Method Urinal Urinal Urinal # Voids 1 1 - Exam GENERAL DESCRIPTION: An elderly male up in bed in no distress RESPIRATORY SYSTEM: Unlabored breathing , coarse breath sounds bilaterally HEART: S1 S2 regular rate and rhythm , ABDOMEN: Soft , no tenderness EXTREMITIES: No edema feet - Labs CBC & Chem 7: 06/18/23 07:56 06/18/23 07:56 Labs: Abnormal Lab Results - Last 24 Hours (Table) 06/17/23 06/17/23 06/18/23 Range/Units 16:24 20:24 06:00 RBC (4.30-5.90) m/uL Hgb (13.0-17.5) gm/dL Hct (39.0-53.0) % RDW (11.5-15.5) % Plt Count (150-450) k/uL BUN (9-20) mg/dL Creatinine (0.66-1.25) mg/dL Glucose (74-99) mg/dL POC Glucose (mg/dL) 173 H 178 H 147 H (70-110) mg/dL 06/18/23 06/18/23 06/18/23 Range/Units 07:56 07:56 11:40 RBC 4.06 L (4.30-5.90) m/uL Hgb 12.3 L (13.0-17.5) gm/dL Hct 38.1 L (39.0-53.0) % RDW 16.4 H (11.5-15.5) % Plt Count 138 L (150-450) k/uL BUN 25 H (9-20) mg/dL Creatinine 0.49 L (0.66-1.25) mg/dL Glucose 142 H (74-99) mg/dL POC Glucose (mg/dL) 256 H (70-110) mg/dL Microbiology - Last 24 Hours (Table) 06/15/23 19:28 Blood Culture Gram Stain - Final Blood Blood Culture - Final Streptococcus pneumoniae 06/15/23 19:13 Blood Culture Gram Stain - Final Blood Blood Culture - Final Streptococcus pneumoniae Assessment and Plan (1) Bacteremia Current Visit: Yes Status: Acute Code(s): R78.81 - BACTEREMIA SNOMED Code(s): 4990281 (2) Allergy to multiple antibiotics Current Visit: Yes Status: Acute Code(s): Z88.1 - ALLERGY STATUS TO OTHER ANTIBIOTIC AGENTS SNOMED Code(s): 392621333 (3) Pneumonia Current Visit: Yes Status: Acute Code(s): J18.9 - PNEUMONIA, UNSPECIFIED ORGANISM SNOMED Code(s): 152835702 Plan: 1patient presented to hospital with sepsis in this patient who did have a fever tachycardia elevated white count source is likely pneumonia in this patient who did have a respiratory symptoms and evidence of multifocal pneumonia on the chest x-ray likely community-acquired 2patient with Streptococcus pneumonia bacteremia source likely pneumonia 3patient with allergy to ceftriaxone reported has diarrhea which is more of a side effect , Rather than true allergies. 4patient to continue with Rocephin 2 g daily along with the probiotics and monitor his clinical course closely Dictation was produced using [employer] dictation software. please excuse any grammatical, word or spelling errors. Time with Patient: Less than 30
[2023-06-18 16:44] LABS: Glucose,Whole Blood 151 mg/dL (70-110)
[2023-06-18] MEDS: LORazepam 1 MG TAB PO PRN (18:40)
[2023-06-18 20:09] LABS: Glucose,Whole Blood 215 mg/dL (70-110)
[2023-06-18] MEDS: PRAVASTATIN SODIUM 40 MG TAB PO SCH (20:30)
[2023-06-18] MEDS: MONTELUKAST 10 MG TAB PO SCH (20:30)
[2023-06-18] MEDS: FLUTICASONE 50MCG/SPRAY NASAL 16GM EA NOSTRIL SCH (20:30)
[2023-06-19 06:03] LABS: Glucose,Whole Blood 138 mg/dL (70-110)
[2023-06-19] MEDS: INSULIN ASPART (NovoLOG) 100 UNIT/ML VIAL SQ SCH ×6 (06:05→20:23)
[2023-06-19] MEDS: LACTOBACILLUS ACIDOPHILUS/PECT 1 EACH CAPSULE PO SCH ×3 (06:24→16:56)
[2023-06-19] MEDS: PANTOPRAZOLE 40 MG TABLET PO SCH (06:24)
[2023-06-19] MEDS: methylPREDNISolone SOD SUCCI 125 MG/2 ML VIAL IV SCH ×4 (06:24→23:45)
[2023-06-19 07:30] LABS: Anisocytosis Slight; HCT 36.8 % (39.0-53.0); HGB 11.8 gm/dL (13.0-17.5); MCH 30.3 pg (25.0-35.0); MCV 94.6 fL (80.0-100.0); Mean Platelet Volume 9.8; Platelet Count 142 k/uL (150-450); RBC 3.89 m/uL (4.30-5.90); RDW 16.3 % (11.5-15.5); WBC 6.1 k/uL (3.8-10.6)
[2023-06-19 07:54] LABS: ALT 57 U/L (4-49); AST 37 U/L (17-59); African American GFR (CKD) >90 (>60 ml/min/1.73 sqM); Albumin 2.5 g/dL (3.5-5.0); Alkaline Phosphatase 80 U/L (38-126); Anion Gap 8 mmol/L; Blood Urea Nitrogen 24 mg/dL (9-20); Calcium 8.8 mg/dL (8.4-10.2); Carbon Dioxide 29 mmol/L (22-30); Chloride 105 mmol/L (98-107); Glucose 162 mg/dL (74-99); Non-African American GFR(CKD) >90 (>60 ml/min/1.73 sqM); Potassium 3.5 mmol/L (3.5-5.1); Sodium 142 mmol/L (137-145); Total Bilirubin 0.6 mg/dL (0.2-1.3); Total Protein 4.6 g/dL (6.3-8.2)
[2023-06-19] MEDS: IPRATROPIUM-ALBUTEROL 3 ML NEB INHALATION SCH ×4 (08:39→20:58)
[2023-06-19] MEDS: SYMBICORT 80-4.5 MCG INHALER INHALATION SCH ×2 (08:39→20:58)
[2023-06-19] MEDS: PREGABALIN 100 MG CAP PO SCH ×2 (08:46→20:33)
[2023-06-19] MEDS: FUROSEMIDE 20 MG TAB PO SCH ×2 (08:47→20:33)
[2023-06-19] MEDS: SERTRALINE 100 MG TAB PO SCH (08:47)
[2023-06-19] MEDS: DILTIAZEM CD 180 MG CAP.ER.24H PO SCH (08:47)
[2023-06-19] MEDS: HYDROcodone/APAP 5-325MG 1 EACH TAB PO PRN ×3 (08:47→23:46)
[2023-06-19] MEDS: guaiFENesin 600 MG TABLET.ER PO SCH ×2 (08:47→20:34)
[2023-06-19] MEDS: APIXABAN 2.5 MG TABLET PO SCH ×2 (08:48→20:34)
[2023-06-19] MEDS: FERROUS SULFATE 325 MG TAB PO SCH (08:48)
[2023-06-19 11:57] LABS: Glucose,Whole Blood 176 mg/dL (70-110)
[2023-06-19] MEDS: DOCUSATE 100 MG CAP PO PRN (12:24)
[2023-06-19] MEDS: INSULIN DETEMIR (LEVEMIR) 100 UNIT/ML SYR SQ SCH (12:28)
--- NOTE | 2023-06-19 12:46 | P.PN ---
Subjective Progress Note Date: 06/19/23 Principal diagnosis: Reason for follow-up is pneumonia and bacteremia. Patient is a 70-year-old male with multiple comorbidities presented to hospital because of shortness of breath and cough patient did have a fever elevated white count concerning for pneumonia subsequently blood cultures came back positive with strep pneumo On today's evaluation that is 06/19/2023 patient remains to be afebrile, the patient is breathing comfortably on 5 L nasal cannula oxygen, the patient denies chest pain, the patient cough has decreased in intensity not bringing up any sputum., The patient denies nausea vomiting no abdominal pain and did not have any diarrhea. The patient white count of 6.1, creatinine 0.51 Objective - Vital Signs Vital signs: Vital Signs Temp 97.5 F L 06/19/23 08:25 Pulse 90 06/19/23 11:55 Resp 18 06/19/23 11:55 BP 121/77 06/19/23 11:10 Pulse Ox 94 L 06/19/23 11:10 FiO2 Intake & Output 06/18/23 06/19/23 06/19/23 18:59 06:59 18:59 Intake Total 600 250 118 Output Total 400 500 Balance 200 250 -382 Intake: IV 10 Invasive Line 1 10 Oral 600 240 118 Output: Urine 400 500 Other: Voiding Method Urinal Bedside Commode Bedside Commode # Voids 1 1 - Exam GENERAL DESCRIPTION: An elderly male up in bed in no distress RESPIRATORY SYSTEM: Unlabored breathing , coarse breath sounds bilaterally HEART: S1 S2 regular rate and rhythm , ABDOMEN: Soft , no tenderness EXTREMITIES: No edema feet - Labs CBC & Chem 7: 06/19/23 07:05 06/19/23 07:05 Labs: Abnormal Lab Results - Last 24 Hours (Table) 06/18/23 06/18/23 06/19/23 Range/Units 16:43 20:06 06:02 RBC (4.30-5.90) m/uL Hgb (13.0-17.5) gm/dL Hct (39.0-53.0) % RDW (11.5-15.5) % Plt Count (150-450) k/uL BUN (9-20) mg/dL Creatinine (0.66-1.25) mg/dL Glucose (74-99) mg/dL POC Glucose (mg/dL) 151 H 215 H 138 H (70-110) mg/dL ALT (4-49) U/L Total Protein (6.3-8.2) g/dL Albumin (3.5-5.0) g/dL 06/19/23 06/19/23 06/19/23 Range/Units 07:05 07:05 11:56 RBC 3.89 L (4.30-5.90) m/uL Hgb 11.8 L (13.0-17.5) gm/dL Hct 36.8 L (39.0-53.0) % RDW 16.3 H (11.5-15.5) % Plt Count 142 L (150-450) k/uL BUN 24 H (9-20) mg/dL Creatinine 0.51 L (0.66-1.25) mg/dL Glucose 162 H (74-99) mg/dL POC Glucose (mg/dL) 176 H (70-110) mg/dL ALT 57 H (4-49) U/L Total Protein 4.6 L (6.3-8.2) g/dL Albumin 2.5 L (3.5-5.0) g/dL Microbiology - Last 24 Hours (Table) 06/17/23 08:55 Blood Culture - Preliminary Blood 06/15/23 19:28 Blood Culture Gram Stain - Final Blood Blood Culture - Final Streptococcus pneumoniae 06/15/23 19:13 Blood Culture Gram Stain - Final Blood Blood Culture - Final Streptococcus pneumoniae Assessment and Plan (1) Bacteremia Current Visit: Yes Status: Acute Code(s): R78.81 - BACTEREMIA SNOMED Code(s): 3577862 (2) Allergy to multiple antibiotics Current Visit: Yes Status: Acute Code(s): Z88.1 - ALLERGY STATUS TO OTHER ANTIBIOTIC AGENTS SNOMED Code(s): 468721329 (3) Pneumonia Current Visit: Yes Status: Acute Code(s): J18.9 - PNEUMONIA, UNSPECIFIED ORGANISM SNOMED Code(s): 419358100 Plan: 1patient presented to hospital with sepsis in this patient who did have a fever tachycardia elevated white count source is likely pneumonia in this patient who did have a respiratory symptoms and evidence of multifocal pneumonia on the chest x-ray likely community-acquired 2patient with Streptococcus pneumonia bacteremia source likely pneumonia 3patient with allergy to ceftriaxone reported has diarrhea which is more of a side effect , Rather than true allergies. 4patient seem to have further clinical improvement we will keep the patient on Rocephin along with probiotics hopefully finishing therapy with oral antibiotics on discharge Dictation was produced using [employer] dictation software. please excuse any grammatical, word or spelling errors. Time with Patient: Less than 30
--- NOTE | 2023-06-19 12:54 | P.PN ---
Subjective Progress Note Date: 06/19/23 Patient is a 68 yo male with a know A fib anticoagulated with eliquis, COPD on home O2 as needed, DM2, GERD, HTN, HLD, and multiple toehr comorbid conditions who presented to the ED with complaints of shortness of breath and fevers. The ER he was noted to be febrile with a temp of 101.2 and a pulse of 154 and was satting 90% on 15 L nonrebreather. Laboratory analysis remarkable for white blood cell count 15, platelets 125. Influenza A/B/RC/COVID-19 PCR was negative. BNP mildly elevated at 2110. EKG demonstrated atrial fibrillation with rapid ventricular response. Chest x-ray demonstrated bilateral multifocal pneumonia. Infectious disease and cardiology were consulted. Echocardiogram revealed bicuspid aortic valve as well as a dilated aortic root at 1.5 cm, EF preserved at 50-55%. Blood cultures came back positive for strep pneumonia. It was felt that his blood cultures are likely related to his pneumonia both being caused by strep. His Levaquin was discontinued and he was started on Rocephin. Patient seen and examined at bedside. His wheezing is worse than yesterday. Eating and drinking well, + constipation. Vital signs reviewed General: non toxic, no distress, appears at stated age Cardiovascular: S1S2 irreg, no murmur, positive posterior tibial pulse bilateral, Lungs: + diffuse wheezing, 3 word dyspnea, no accessory muscle use Abdominal: soft, nontender to palpation, no guarding, no appreciable organomegaly Ext: no gross muscle atrophy, trace edema b/l lower extremities, no contractures Neuro: CN II-XI grossly intact, no focal neuro deficits Psych: Alert, oriented, appropriate affect Assessment/Plan: Community acquired multifocal pneumonia, likely strep Strep Bacteremia Acute on chronic hypoxic respiratory failure, uses as needed oxygen at home Sepsis Acute exacerbation of COPD - repeat CXR to look for signs of fluid overload -Infectious disease note reviewed: Continue Rocephin. - Rocephin 2 g IVPB every 24 hours day #3 (patient also completed 2 days of Levaquin prior) - Await sputum culture, legionella urine antigen negative - Douneb 4 times daily and every 2 hours as needed, and Symbicort 2 puffs twice daily - Solu-Medrol IV 60 mg every 6 hours - Continue Singular - Wean O2 as able - Mucinex 1200 mg PO BID - Repeat Blood cultures form - negative to date - [place] to [id number] prn - Lactobacillus 1 tablet 3 times daily Constipation -Colace 100 mg twice daily Paroxysmal Atrial fibrillation with rapid ventricular response, Bicuspid aortic valve with moderate Dilated aortic root Hypertension Dyslipidemia Diastolic Congestive heart failure with mild exacerbation, EF of 50-55% - Cardizem to 180 mg daily -Cardiology note reviewed from 06/18 continue Eliquis 5 mg twice daily and increase by mouth Cardizem to 180 mg daily -Lasix 20 mg PO BID -Continue with Eliquis 2.5 mg twice daily Thrombocytopenia - suspect reactive to acute illness. - no indication for transfusion - Repeat CBC in AM Diabetes mellitus type 2 -Hold metformin -Sliding-scale insulin -A1c 5.8 Chronic: See arthritis Prior pulmonary embolism Obstructive sleep apnea Neuropathy Spinal stenosis Imaging: None new Data Review: Labs reviewed include CBC and CMP which are remarkable for hemoglobin 11.8, platelets 142, BUN 24. Blood sugars reviewed the maximum of 215 yesterday. DVT prophylaxis: Eliquis Anticipated discharge date: Pending Clinical Course Anticipated discharge place: Pending Clinical Course This dictation was prepared using [employer] voice recognition software. Though every attempt is made to correct errors during dictation some may still exist. Objective - Vital Signs Vital signs: Vital Signs Temp 97.5 F L 06/19/23 08:25 Pulse 90 06/19/23 11:55 Resp 18 06/19/23 11:55 BP 121/77 06/19/23 11:10 Pulse Ox 94 L 06/19/23 11:10 FiO2 Intake & Output 06/18/23 06/19/23 06/19/23 18:59 06:59 18:59 Intake Total 600 250 118 Output Total 400 500 Balance 200 250 -382 Intake: IV 10 Invasive Line 1 10 Oral 600 240 118 Output: Urine 400 500 Other: Voiding Method Urinal Bedside Commode Bedside Commode # Voids 1 1 - Labs CBC & Chem 7: 06/19/23 07:05 06/19/23 07:05 Labs: Abnormal Lab Results - Last 24 Hours (Table) 06/18/23 06/18/23 06/19/23 Range/Units 16:43 20:06 06:02 RBC (4.30-5.90) m/uL Hgb (13.0-17.5) gm/dL Hct (39.0-53.0) % RDW (11.5-15.5) % Plt Count (150-450) k/uL BUN (9-20) mg/dL Creatinine (0.66-1.25) mg/dL Glucose (74-99) mg/dL POC Glucose (mg/dL) 151 H 215 H 138 H (70-110) mg/dL ALT (4-49) U/L Total Protein (6.3-8.2) g/dL Albumin (3.5-5.0) g/dL 06/19/23 06/19/23 06/19/23 Range/Units 07:05 07:05 11:56 RBC 3.89 L (4.30-5.90) m/uL Hgb 11.8 L (13.0-17.5) gm/dL Hct 36.8 L (39.0-53.0) % RDW 16.3 H (11.5-15.5) % Plt Count 142 L (150-450) k/uL BUN 24 H (9-20) mg/dL Creatinine 0.51 L (0.66-1.25) mg/dL Glucose 162 H (74-99) mg/dL POC Glucose (mg/dL) 176 H (70-110) mg/dL ALT 57 H (4-49) U/L Total Protein 4.6 L (6.3-8.2) g/dL Albumin 2.5 L (3.5-5.0) g/dL Microbiology - Last 24 Hours (Table) 06/17/23 08:55 Blood Culture - Preliminary Blood 06/15/23 19:28 Blood Culture Gram Stain - Final Blood Blood Culture - Final Streptococcus pneumoniae 06/15/23 19:13 Blood Culture Gram Stain - Final Blood Blood Culture - Final Streptococcus pneumoniae
--- NOTE | 2023-06-19 13:17 | P.PN ---
Subjective Progress Note Date: 06/19/23 HISTORY OF PRESENTING ILLNESS 68-year-old male with past medical history of atrial fibrillation status post cardioversion in December 2020. Since then he has stayed out of atrial fibrillation. In December 2020 he also had left and right heart catheterization left heart showed that he has mild nonobstructive disease. Right heart showed mild pulmonary hypertension, normal pulmonary vascular resistance, no step up on oxygen saturations. He was managed on Eliquis and has had 2 episodes of GI bleeding in past while being with systemic and evaluation. This time he presented to the hospital because of worsening shortness of breath. His chest x-ray admission shows concerns of bilateral multifocal pneumonia. He also had some fever and chills at home and along with increased coughing. On admission he is noticed to have atrial ablation with rapid ventricular response. Labs on admission WBC 15, platelets 125, hemoglobin 14, sodium 137, potassium 3.8, creatinine 0.5, troponin negative. BNP 199906/17/2023 Patient is seen and examined at bedside the same. His blood cultures are positive for Streptococcus pneumoniae. Pro-calcitonin 7, TSH 0.4 131/89, heart rate 108 beats minute, atrial fibrillation 06/18/2023 Patient is seen and examined at bedside the same. Patient is doing well from Cardec standpoint. He is rate controlled atrial fibrillation. 1/2 Patient is seen today in follow-up. Heart rate is running 90-100 in atrial fibrillation. He is currently maintained on eliquis, Cardizem CD 180 mg daily, Lasix 20 mg oral twice daily. Repeat blood work reveals WBC 6.1, hemoglobin 11.8, platelet count 142. BUN 24 creatinine 0.51. PHYSICAL EXAMINATION Vital signs reviewed. Head: Normocephalic. Eyes: Sclerae nonicteric. Lungs: Diffuse crackles and rhonchi in bilateral lung breen Heart: Irregularly irregular and rhythm, S1-S2, no S3, systolic murmur Extremities: No edema, intact distal pulses. ASSESSMENT Atrial fibrillation with rapid ventricular response. Last cardioversion December 2020. Was in sinus rhythm since. Most likely relapse due to sepsis and pneumonia Bicuspid aortic valve with moderate aortic stenosis Dilated aortic root 4.5 cm Mild pulmonary hypertension Acute hypoxic respiratory failure thrombocytopenia Prior history of GI bleeding on anticoagulation Sepsis Multifocal pneumonia, streptococcal Echo showed EF 55%, moderate aortic stenosis, bicuspid aortic valve, dilated aortic root 4.5 cm PLAN Continue Eliquis 5 mg twice a day Continue Cardizem 180 mg daily Continue IV antibiotics for pneumonia Avoid Levaquin because of dilated aorta Patient will outpatient follow-up and a possible aortic CTA to size it better. He will need a one-year follow-up aortic CTA thereafter He would also benefit from rhythm control strategy for atrial fibrillation. This should be evaluated on outpatient basis. Nurse practitioner note has been reviewed, I agree with the documented findings and plan of care. Patient was seen and examined. Objective - Vital Signs Vital signs: Vital Signs Temp 98.3 F 06/18/23 23:36 Pulse 90 06/19/23 08:54 Resp 18 06/19/23 08:54 BP 119/82 06/19/23 04:00 Pulse Ox 91 L 06/19/23 08:42 FiO2 Intake & Output 06/18/23 06/19/23 06/19/23 18:59 06:59 18:59 Intake Total 600 250 Output Total 400 Balance 200 250 Intake: IV 10 Invasive Line 1 10 Oral 600 240 Output: Urine 400 Other: Voiding Method Urinal Bedside Commode # Voids 1 1 - Labs CBC & Chem 7: 06/19/23 07:05 06/19/23 07:05 Labs: Abnormal Lab Results - Last 24 Hours (Table) 06/18/23 06/18/23 06/18/23 Range/Units 11:40 16:43 20:06 RBC (4.30-5.90) m/uL Hgb (13.0-17.5) gm/dL Hct (39.0-53.0) % RDW (11.5-15.5) % Plt Count (150-450) k/uL BUN (9-20) mg/dL Creatinine (0.66-1.25) mg/dL Glucose (74-99) mg/dL POC Glucose (mg/dL) 256 H 151 H 215 H (70-110) mg/dL ALT (4-49) U/L Total Protein (6.3-8.2) g/dL Albumin (3.5-5.0) g/dL 06/19/23 06/19/23 06/19/23 Range/Units 06:02 07:05 07:05 RBC 3.89 L (4.30-5.90) m/uL Hgb 11.8 L (13.0-17.5) gm/dL Hct 36.8 L (39.0-53.0) % RDW 16.3 H (11.5-15.5) % Plt Count 142 L (150-450) k/uL BUN 24 H (9-20) mg/dL Creatinine 0.51 L (0.66-1.25) mg/dL Glucose 162 H (74-99) mg/dL POC Glucose (mg/dL) 138 H (70-110) mg/dL ALT 57 H (4-49) U/L Total Protein 4.6 L (6.3-8.2) g/dL Albumin 2.5 L (3.5-5.0) g/dL Microbiology - Last 24 Hours (Table) 06/17/23 08:55 Blood Culture - Preliminary Blood 06/15/23 19:28 Blood Culture Gram Stain - Final Blood Blood Culture - Final Streptococcus pneumoniae 06/15/23 19:13 Blood Culture Gram Stain - Final Blood Blood Culture - Final Streptococcus pneumoniae
--- NOTE | 2023-06-19 15:48 | XR ---
EXAMINATION TYPE: XR chest 2V DATE OF EXAM: 06/19/2023 3:41 PM CLINICAL INDICATION:Male, 68 years old with history of pneumonia; COMPARISON: Chest radiographs from 06/16/2023 TECHNIQUE: XR chest 2V Frontal and lateral views of the chest. FINDINGS: Lungs/Pleura: Improved aeration of lungs there is persistent multifocal pneumonia. There is no eviden ce of pleural effusion, focal consolidation, or pneumothorax. Pulmonary vascularity: Unremarkable. Heart/mediastinum: Cardiomediastinal silhouette is unremarkable. Musculoskeletal: No acute osseous pathology. IMPRESSION: Improved aeration with persistent multifocal pneumonia.
[2023-06-19 16:39] LABS: Glucose,Whole Blood 143 mg/dL (70-110)
[2023-06-19] MEDS: LORazepam 1 MG TAB PO PRN (16:56)
[2023-06-19 20:19] LABS: Glucose,Whole Blood 135 mg/dL (70-110)
[2023-06-19] MEDS: PRAVASTATIN SODIUM 40 MG TAB PO SCH (20:33)
[2023-06-19] MEDS: MONTELUKAST 10 MG TAB PO SCH (20:34)
[2023-06-19] MEDS: FLUTICASONE 50MCG/SPRAY NASAL 16GM EA NOSTRIL SCH (20:34)
[2023-06-19] MEDS: DICLOFENAC SODIUM GEL 100 GM TUBE TOPICAL PRN (21:35)
[2023-06-20] MEDS: methylPREDNISolone SOD SUCCI 125 MG/2 ML VIAL IV SCH ×3 (06:35→16:55)
[2023-06-20] MEDS: PANTOPRAZOLE 40 MG TABLET PO SCH (06:35)
[2023-06-20] MEDS: LACTOBACILLUS ACIDOPHILUS/PECT 1 EACH CAPSULE PO SCH ×3 (06:35→16:55)
[2023-06-20] MEDS: HYDROcodone/APAP 5-325MG 1 EACH TAB PO PRN ×2 (06:38→20:14)
[2023-06-20 07:19] LABS: Glucose,Whole Blood 131 mg/dL (70-110)
[2023-06-20] MEDS: INSULIN ASPART (NovoLOG) 100 UNIT/ML VIAL SQ SCH ×7 (07:45→20:15)
[2023-06-20] MEDS: SYMBICORT 80-4.5 MCG INHALER INHALATION SCH ×2 (08:27→21:01)
[2023-06-20] MEDS: IPRATROPIUM-ALBUTEROL 3 ML NEB INHALATION SCH ×4 (08:27→21:01)
[2023-06-20] MEDS: DILTIAZEM CD 180 MG CAP.ER.24H PO SCH (08:31)
[2023-06-20] MEDS: PREGABALIN 100 MG CAP PO SCH ×2 (08:31→20:14)
[2023-06-20] MEDS: FUROSEMIDE 20 MG TAB PO SCH ×2 (08:31→20:14)
[2023-06-20] MEDS: guaiFENesin 600 MG TABLET.ER PO SCH ×2 (08:31→20:14)
[2023-06-20] MEDS: SERTRALINE 100 MG TAB PO SCH (08:31)
[2023-06-20] MEDS: APIXABAN 2.5 MG TABLET PO SCH ×2 (08:31→20:15)
[2023-06-20] MEDS: FERROUS SULFATE 325 MG TAB PO SCH (08:31)
[2023-06-20] MEDS: DILTIAZEM 125 MG in SODIUM CHLORIDE 0.9% 100 ML IV SCH (10:44)
[2023-06-20 12:13] LABS: Glucose,Whole Blood 221 mg/dL (70-110)
--- NOTE | 2023-06-20 12:14 | P.PN ---
Subjective Progress Note Date: 06/20/23 Principal diagnosis: Reason for follow-up is pneumonia and bacteremia. Patient is a 70-year-old male with multiple comorbidities presented to hospital because of shortness of breath and cough patient did have a fever elevated white count concerning for pneumonia subsequently blood cultures came back positive with strep pneumo On today's evaluation that is 06/21/2023 the patient continues to be afebrile patient is breathing comfortably on 4 L nasal cannula oxygen patient denies having any chest pain cough is decreased in intensity mostly dry nature no nausea no vomiting no abdominal pain and did not have any diarrhea. Patient did have white count of 6.1 and creatinine 0.51 as of 06/19/2023 lab draw from this morning pending repeat blood cultures so far negative Objective - Vital Signs Vital signs: Vital Signs Temp 97.8 F 06/20/23 08:00 Pulse 92 06/20/23 11:55 Resp 18 06/20/23 08:00 BP 126/76 06/20/23 08:00 Pulse Ox 97 06/20/23 08:00 FiO2 Intake & Output 06/19/23 06/20/23 06/20/23 18:59 06:59 18:59 Intake Total 354 260 128 Output Total 700 Balance -346 260 128 Intake: IV 20 10 Invasive Line 1 20 10 Oral 354 240 118 Output: Urine 700 Other: Voiding Method Bedside Commode Bedside Commode # Voids 1 # Bowel Movements 1 - Exam GENERAL DESCRIPTION: An elderly male up in bed in no distress RESPIRATORY SYSTEM: Unlabored breathing , coarse breath sounds bilaterally HEART: S1 S2 regular rate and rhythm , ABDOMEN: Soft , no tenderness EXTREMITIES: No edema feet - Labs CBC & Chem 7: 06/19/23 07:05 06/19/23 07:05 Labs: Abnormal Lab Results - Last 24 Hours (Table) 06/19/23 06/19/23 06/20/23 Range/Units 16:38 20:17 07:08 POC Glucose (mg/dL) 143 H 135 H 131 H (70-110) mg/dL Microbiology - Last 24 Hours (Table) 06/17/23 08:55 Blood Culture - Preliminary Blood Assessment and Plan (1) Bacteremia Current Visit: Yes Status: Acute Code(s): R78.81 - BACTEREMIA SNOMED Code(s): 6495451 (2) Allergy to multiple antibiotics Current Visit: Yes Status: Acute Code(s): Z88.1 - ALLERGY STATUS TO OTHER ANTIBIOTIC AGENTS SNOMED Code(s): 182751650 (3) Pneumonia Current Visit: Yes Status: Acute Code(s): J18.9 - PNEUMONIA, UNSPECIFIED ORGANISM SNOMED Code(s): 227277907 Plan: 1patient presented to hospital with sepsis in this patient who did have a fever tachycardia elevated white count source is likely pneumonia in this patient who did have a respiratory symptoms and evidence of multifocal pneumonia on the chest x-ray likely community-acquired 2patient with Streptococcus pneumonia bacteremia source likely pneumonia 3patient with allergy to ceftriaxone reported has diarrhea which is more of a side effect , Rather than true allergies. 4the patient has shown clinical improvement, fever resolved white count normalized we will continue the patient on Rocephin infusion therapy with oral Ceftin once his respiratory status stabilized further as still requiring 4 L nasal cannula oxygen as of today Dictation was produced using [employer] dictation software. please excuse any grammatical, word or spelling errors. Time with Patient: Less than 30
--- NOTE | 2023-06-20 14:19 | P.PN ---
Subjective Progress Note Date: 06/20/23 HISTORY OF PRESENTING ILLNESS 68-year-old male with past medical history of atrial fibrillation status post cardioversion in December 2020. Since then he has stayed out of atrial fibrillation. In December 2020 he also had left and right heart catheterization left heart showed that he has mild nonobstructive disease. Right heart showed mild pulmonary hypertension, normal pulmonary vascular resistance, no step up on oxygen saturations. He was managed on Eliquis and has had 2 episodes of GI bleeding in past while being with systemic and evaluation. This time he presented to the hospital because of worsening shortness of breath. His chest x-ray admission shows concerns of bilateral multifocal pneumonia. He also had some fever and chills at home and along with increased coughing. On admission he is noticed to have atrial ablation with rapid ventricular response. Labs on admission WBC 15, platelets 125, hemoglobin 14, sodium 137, potassium 3.8, creatinine 0.5, troponin negative. BNP 199906/17/2023 Patient is seen and examined at bedside the same. His blood cultures are positive for Streptococcus pneumoniae. Pro-calcitonin 7, TSH 0.4 131/89, heart rate 108 beats minute, atrial fibrillation 06/18/2023 Patient is seen and examined at bedside the same. Patient is doing well from Cardec standpoint. He is rate controlled atrial fibrillation. 1/2 Patient is seen today in follow-up. Heart rate is running 90-100 in atrial fibrillation. He is currently maintained on eliquis, Cardizem CD 180 mg daily, Lasix 20 mg oral twice daily. Repeat blood work reveals WBC 6.1, hemoglobin 11.8, platelet count 142. BUN 24 creatinine 0.51. 1/3 Heart rate is running in the low 100s and atrial fibrillation. Patient has been maintained on Cardizem CD 180 mg daily. This also start patient on Cardizem drip. Blood pressure 122/71, pulse ox 92% on 3 L. PHYSICAL EXAMINATION Vital signs reviewed. Head: Normocephalic. Eyes: Sclerae nonicteric. Lungs: Bilateral wheezing Heart: Irregularly irregular and rhythm, S1-S2, no S3, systolic murmur Extremities: No edema, intact distal pulses. ASSESSMENT Atrial fibrillation with rapid ventricular response. Last cardioversion December 2020. Was in sinus rhythm since. Most likely relapse due to sepsis and pneumonia Bicuspid aortic valve with moderate aortic stenosis Dilated aortic root 4.5 cm Mild pulmonary hypertension Acute hypoxic respiratory failure thrombocytopenia Prior history of GI bleeding on anticoagulation Sepsis Multifocal pneumonia, streptococcal Echo showed EF 55%, moderate aortic stenosis, bicuspid aortic valve, dilated aortic root 4.5 cm PLAN Continue Eliquis 5 mg twice a day Continue Cardizem 180 mg daily and start patient on Cardizem drip at 5 mg per hour. Continue IV antibiotics for pneumonia Avoid Levaquin because of dilated aorta Patient will outpatient follow-up and a possible aortic CTA to size it better. He will need a one-year follow-up aortic CTA thereafter He would also benefit from rhythm control strategy for atrial fibrillation. This should be evaluated on outpatient basis. Nurse practitioner note has been reviewed, I agree with the documented findings and plan of care. Patient was seen and examined. Objective - Vital Signs Vital signs: Vital Signs Temp 97.8 F 06/20/23 08:00 Pulse 90 06/20/23 08:39 Resp 18 06/20/23 08:00 BP 126/76 06/20/23 08:00 Pulse Ox 97 06/20/23 08:00 FiO2 Intake & Output 06/19/23 06/20/23 06/20/23 18:59 06:59 18:59 Intake Total 354 260 128 Output Total 700 Balance -346 260 128 Intake: IV 20 10 Invasive Line 1 20 10 Oral 354 240 118 Output: Urine 700 Other: Voiding Method Bedside Commode Bedside Commode # Voids 1 # Bowel Movements 1 - Labs CBC & Chem 7: 06/19/23 07:05 06/19/23 07:05 Labs: Abnormal Lab Results - Last 24 Hours (Table) 06/19/23 06/19/23 06/19/23 Range/Units 11:56 16:38 20:17 POC Glucose (mg/dL) 176 H 143 H 135 H (70-110) mg/dL 06/20/23 Range/Units 07:08 POC Glucose (mg/dL) 131 H (70-110) mg/dL Microbiology - Last 24 Hours (Table) 06/17/23 08:55 Blood Culture - Preliminary Blood
[2023-06-20 16:46] LABS: Glucose,Whole Blood 132 mg/dL (70-110)
[2023-06-20] MEDS: INSULIN DETEMIR (LEVEMIR) 100 UNIT/ML SYR SQ SCH (16:53)
--- NOTE | 2023-06-20 19:27 | P.PN ---
Subjective Progress Note Date: 06/20/23 (jean-paul charting seen at 1045) Patient is a 68 yo male with a know A fib anticoagulated with eliquis, COPD on home O2 as needed, DM2, GERD, HTN, HLD, and multiple toehr comorbid conditions who presented to the ED with complaints of shortness of breath and fevers. The ER he was noted to be febrile with a temp of 101.2 and a pulse of 154 and was satting 90% on 15 L nonrebreather. Laboratory analysis remarkable for white blood cell count 15, platelets 125. Influenza A/B/RC/COVID-19 PCR was negative. BNP mildly elevated at 2110. EKG demonstrated atrial fibrillation with rapid ventricular response. Chest x-ray demonstrated bilateral multifocal pneumonia. Infectious disease and cardiology were consulted. Echocardiogram revealed bicuspid aortic valve as well as a dilated aortic root at 1.5 cm, EF preserved at 50-55%. Blood cultures came back positive for strep pneumonia. It was felt that his blood cultures are likely related to his pneumonia both being caused by strep. His Levaquin was discontinued and he was started on Rocephin. Continue to improve. He was restarted on Cardizem drip by cardiology on 06/20/23. Feeling better today. Breathing easier. Does feel like he could probably manage at home once he is able to come off of the Cardizem drip. Vital signs reviewed General: non toxic, no distress, appears at stated age Cardiovascular: S1S2 irreg, no murmur, positive posterior tibial pulse bilateral, Lungs: Course bs b/l, no converational dyspnea, no accessory muscle use Abdominal: soft, nontender to palpation, no guarding, no appreciable organomegaly Ext: no gross muscle atrophy, trace edema b/l lower extremities, no contractures Neuro: CN II-XI grossly intact, no focal neuro deficits Psych: Alert, oriented, appropriate affect Assessment/Plan: Community acquired multifocal pneumonia, likely strep Strep Bacteremia Acute on chronic hypoxic respiratory failure, uses as needed oxygen at home Sepsis Acute exacerbation of COPD - repeat CXR to look for signs of fluid overload - Case discussed with Dr. Shirley. Can finish antibiotics with Ceftin to complete a total of 10 days of Beta lactam abx. - Rocephin 2 g IVPB every 24 hours day #09/25 (patient also completed 2 days of Levaquin prior) - unable to ontain sputum culture, legionella urine antigen negative - Douneb 4 times daily and every 2 hours as needed, and Symbicort 2 puffs twice daily - Solu-Medrol IV 60 mg every 6 hours - Continue Singular - Wean O2 as able-- patient has O2 at home - Mucinex 1200 mg PO BID - Repeat Blood cultures form - negative to date - [place] to [id number] prn - Lactobacillus 1 tablet 3 times daily Constipation -Colace 100 mg twice daily Paroxysmal Atrial fibrillation with rapid ventricular response, Bicuspid aortic valve with moderate Dilated aortic root Hypertension Dyslipidemia Diastolic Congestive heart failure with mild exacerbation, EF of 50-55% - Cardiology note reviewed: Outpatient CTA to better size aortic root. Possible rhythm control strategy for A. fib on outpatient basis. - Cardizem to 180 mg daily and cardizem gtt at 5 mg/hr -Lasix 20 mg PO BID -Continue with Eliquis 2.5 mg twice daily Thrombocytopenia - suspect reactive to acute illness. - no indication for transfusion - Repeat CBC in AM Diabetes mellitus type 2 -Hold metformin -Sliding-scale insulin -A1c 5.8 Chronic: See arthritis Prior pulmonary embolism Obstructive sleep apnea Neuropathy Spinal stenosis Imaging: Chest X-ray reviewed with improved aeration but continues to show signs of bilateral multilobar pneumonia. Data Review: Sugars reviewed and better controlled in the 130s. DVT prophylaxis: Eliquis Anticipated discharge date: in AM if HR controlled Anticipated discharge place: Home This dictation was prepared using [employer] voice recognition software. Though every attempt is made to correct errors during dictation some may still exist. Objective - Vital Signs Vital signs: Vital Signs Temp 97.9 F 06/20/23 16:00 Pulse 105 H 06/20/23 16:17 Resp 16 06/20/23 16:00 BP 117/83 06/20/23 16:00 Pulse Ox 94 L 06/20/23 16:00 FiO2 Intake & Output 06/20/23 06/20/23 06/21/23 06:59 18:59 06:59 Intake Total 260 374 Balance 260 374 Intake: IV 20 20 Invasive Line 1 20 20 Oral 240 354 Other: Voiding Method Bedside Commode # Voids 1 - Labs CBC & Chem 7: 06/19/23 07:05 06/19/23 07:05 Labs: Abnormal Lab Results - Last 24 Hours (Table) 06/19/23 06/20/23 06/20/23 Range/Units 20:17 07:08 12:02 POC Glucose (mg/dL) 135 H 131 H 221 H (70-110) mg/dL 06/20/23 Range/Units 16:45 POC Glucose (mg/dL) 132 H (70-110) mg/dL Microbiology - Last 24 Hours (Table) 06/17/23 08:55 Blood Culture - Preliminary Blood
[2023-06-20 20:06] LABS: Glucose,Whole Blood 163 mg/dL (70-110)
[2023-06-20] MEDS: PRAVASTATIN SODIUM 40 MG TAB PO SCH (20:14)
[2023-06-20] MEDS: MONTELUKAST 10 MG TAB PO SCH (20:14)
[2023-06-20] MEDS: FLUTICASONE 50MCG/SPRAY NASAL 16GM EA NOSTRIL SCH (20:15)
[2023-06-20] MEDS: LORazepam 1 MG TAB PO PRN (22:49)
[2023-06-21] MEDS: ZOLPIDEM 5 MG TAB PO PRN (00:55)
[2023-06-21] MEDS: LACTOBACILLUS ACIDOPHILUS/PECT 1 EACH CAPSULE PO SCH ×3 (06:55→16:55)
[2023-06-21] MEDS: PANTOPRAZOLE 40 MG TABLET PO SCH (06:55)
[2023-06-21] MEDS: INSULIN ASPART (NovoLOG) 100 UNIT/ML VIAL SQ SCH ×7 (07:04→20:52)
[2023-06-21 07:05] LABS: Glucose,Whole Blood 126 mg/dL (70-110)
[2023-06-21] MEDS: INSULIN DETEMIR (LEVEMIR) 100 UNIT/ML SYR SQ SCH (07:06)
[2023-06-21] MEDS: PREGABALIN 100 MG CAP PO SCH ×2 (08:04→19:55)
[2023-06-21] MEDS: APIXABAN 2.5 MG TABLET PO SCH ×2 (08:05→19:55)
[2023-06-21] MEDS: SERTRALINE 100 MG TAB PO SCH (08:05)
[2023-06-21] MEDS: predniSONE 20 MG TAB PO SCH (08:05)
[2023-06-21] MEDS: FUROSEMIDE 20 MG TAB PO SCH ×2 (08:05→19:54)
[2023-06-21] MEDS: guaiFENesin 600 MG TABLET.ER PO SCH ×2 (08:05→19:55)
[2023-06-21] MEDS: FERROUS SULFATE 325 MG TAB PO SCH (08:05)
[2023-06-21] MEDS: DILTIAZEM CD 180 MG CAP.ER.24H PO SCH (08:06)
[2023-06-21] MEDS: DOCUSATE 100 MG CAP PO PRN (08:11)
[2023-06-21] MEDS: HYDROcodone/APAP 5-325MG 1 EACH TAB PO PRN ×2 (08:12→19:55)
[2023-06-21 08:53] LABS: Anisocytosis Slight; HCT 44.4 % (39.0-53.0); HGB 14.3 gm/dL (13.0-17.5); MCH 30.2 pg (25.0-35.0); MCHC 32.1 g/dL (31.0-37.0); MCV 94.1 fL (80.0-100.0); Mean Platelet Volume 9.5; Platelet Count 237 k/uL (150-450); RBC 4.72 m/uL (4.30-5.90); WBC 11.8 k/uL (3.8-10.6)
[2023-06-21 09:11] LABS: African American GFR (CKD) >90 (>60 ml/min/1.73 sqM); Anion Gap 7 mmol/L; Blood Urea Nitrogen 22 mg/dL (9-20); Calcium 8.8 mg/dL (8.4-10.2); Carbon Dioxide 36 mmol/L (22-30); Chloride 98 mmol/L (98-107); Glucose 123 mg/dL (74-99); Non-African American GFR(CKD) >90 (>60 ml/min/1.73 sqM); Potassium 3.5 mmol/L (3.5-5.1); Sodium 141 mmol/L (137-145)
[2023-06-21] MEDS: IPRATROPIUM-ALBUTEROL 3 ML NEB INHALATION SCH ×4 (09:13→21:29)
[2023-06-21] MEDS: SYMBICORT 80-4.5 MCG INHALER INHALATION SCH ×2 (09:13→21:29)
[2023-06-21 11:22] LABS: Glucose,Whole Blood 154 mg/dL (70-110)
--- NOTE | 2023-06-21 12:45 | P.PN ---
Subjective Progress Note Date: 06/21/23 HISTORY OF PRESENTING ILLNESS 68-year-old male with past medical history of atrial fibrillation status post cardioversion in December 2020. Since then he has stayed out of atrial fibrillation. In December 2020 he also had left and right heart catheterization left heart showed that he has mild nonobstructive disease. Right heart showed mild pulmonary hypertension, normal pulmonary vascular resistance, no step up on oxygen saturations. He was managed on Eliquis and has had 2 episodes of GI bleeding in past while being with systemic and evaluation. This time he presented to the hospital because of worsening shortness of breath. His chest x-ray admission shows concerns of bilateral multifocal pneumonia. He also had some fever and chills at home and along with increased coughing. On admission he is noticed to have atrial ablation with rapid ventricular response. Labs on admission WBC 15, platelets 125, hemoglobin 14, sodium 137, potassium 3.8, creatinine 0.5, troponin negative. BNP 199906/17/2023 Patient is seen and examined at bedside the same. His blood cultures are positive for Streptococcus pneumoniae. Pro-calcitonin 7, TSH 0.4 131/89, heart rate 108 beats minute, atrial fibrillation 06/18/2023 Patient is seen and examined at bedside the same. Patient is doing well from Cardec standpoint. He is rate controlled atrial fibrillation. 1/ Patient is seen today in follow-up. Heart rate is running 90-100 in atrial fibrillation. He is currently maintained on eliquis, Cardizem CD 180 mg daily, Lasix 20 mg oral twice daily. Repeat blood work reveals WBC 6.1, hemoglobin 11.8, platelet count 142. BUN 24 creatinine 0.51. 06/20 Heart rate is running in the low 100s and atrial fibrillation. Patient has been maintained on Cardizem CD 180 mg daily. This also start patient on Cardizem drip. Blood pressure 122/71, pulse ox 92% on 3 L. 06/21 Telemetry remains in atrial fibrillation running about 100 bpm. Patient maintained on IV Cardizem drip at 5 mg per hour as well as oral Cardizem CD 180 mg daily. Blood pressure 127/85, pulse ox 91% on 2 L nasal cannula. Repeat blood work reveals BUN 22 creatinine 0.56, potassium 3.5. WBC 11.8 and hemoglobin 14.3. PHYSICAL EXAMINATION Vital signs reviewed. Head: Normocephalic. Eyes: Sclerae nonicteric. Lungs: Bilateral wheezing Heart: Irregularly irregular and rhythm, S1-S2, no S3, systolic murmur Extremities: No edema, intact distal pulses. ASSESSMENT Atrial fibrillation with rapid ventricular response. Last cardioversion December 2020. Was in sinus rhythm since. Most likely relapse due to sepsis and pneumonia Bicuspid aortic valve with moderate aortic stenosis Dilated aortic root 4.5 cm Mild pulmonary hypertension Acute hypoxic respiratory failure thrombocytopenia Prior history of GI bleeding on anticoagulation Sepsis Multifocal pneumonia, streptococcal Echo showed EF 55%, moderate aortic stenosis, bicuspid aortic valve, dilated aortic root 4.5 cm PLAN Continue Eliquis 5 mg twice a day Increase oral Cardizem to 240 mg daily starting tomorrow and continue patient on Cardizem drip at 5 mg per hour. Plan to discontinue Cardizem drip tomorrow. Continue IV antibiotics for pneumonia Avoid Levaquin because of dilated aorta Patient will outpatient follow-up and a possible aortic CTA to size it better. He will need a one-year follow-up aortic CTA thereafter He would also benefit from rhythm control strategy for atrial fibrillation. This should be evaluated on outpatient basis. Nurse practitioner note has been reviewed, I agree with the documented findings and plan of care. Patient was seen and examined. Objective - Vital Signs Vital signs: Vital Signs Temp 97.9 F 06/21/23 08:01 Pulse 96 06/21/23 08:01 Resp 17 06/21/23 08:01 BP 127/85 06/21/23 08:01 Pulse Ox 91 L 06/21/23 08:01 FiO2 Intake & Output 06/20/23 06/21/23 06/21/23 18:59 06:59 18:59 Intake Total 374 10 120 Output Total 300 250 Balance 374 -290 -130 Intake: IV 20 10 Invasive Line 1 20 Invasive Line 2 10 Oral 354 120 Output: Urine 300 250 Other: Voiding Method Bedside Commode # Voids 3 - Labs CBC & Chem 7: 06/21/23 07:34 06/21/23 07:34 Labs: Abnormal Lab Results - Last 24 Hours (Table) 06/20/23 06/20/23 06/20/23 Range/Units 12:02 16:45 20:05 WBC (3.8-10.6) k/uL RDW (11.5-15.5) % POC Glucose (mg/dL) 221 H 132 H 163 H (70-110) mg/dL 06/21/23 06/21/23 Range/Units 07:03 07:34 WBC 11.8 H (3.8-10.6) k/uL RDW 16.0 H (11.5-15.5) % POC Glucose (mg/dL) 126 H (70-110) mg/dL Microbiology - Last 24 Hours (Table) 06/17/23 08:55 Blood Culture - Preliminary Blood
--- NOTE | 2023-06-21 15:05 | P.PN ---
Subjective Progress Note Date: 06/21/23 Principal diagnosis: Reason for follow-up is pneumonia and bacteremia. Patient is a 70-year-old male with multiple comorbidities presented to hospital because of shortness of breath and cough patient did have a fever elevated white count concerning for pneumonia subsequently blood cultures came back positive with strep pneumo On today's evaluation that is 06/21/2023, the patient denies any fever or any chills, the patient is breathing comfortably on 2 L nasal cannula oxygen, patient denies having any chest pain or shortness of breath cough has decreased in intensity no nausea vomiting no abdominal pain and no diarrhea Patient white count is 11.8 creatinine 0.5 6 repeat blood culture negative Objective - Vital Signs Vital signs: Vital Signs Temp 97.7 F 06/21/23 11:32 Pulse 76 06/21/23 11:32 Resp 18 06/21/23 11:32 BP 127/85 06/21/23 08:01 Pulse Ox 91 L 06/21/23 11:32 FiO2 Intake & Output 06/20/23 06/21/23 06/21/23 18:59 06:59 18:59 Intake Total 374 10 120 Output Total 300 250 Balance 374 -290 -130 Intake: IV 20 10 Invasive Line 1 20 Invasive Line 2 10 Oral 354 120 Output: Urine 300 250 Other: Voiding Method Bedside Commode # Voids 3 - Exam GENERAL DESCRIPTION: An elderly male up in bed in no distress RESPIRATORY SYSTEM: Unlabored breathing , coarse breath sounds bilaterally HEART: S1 S2 regular rate and rhythm , ABDOMEN: Soft , no tenderness EXTREMITIES: No edema feet - Labs CBC & Chem 7: 06/21/23 07:34 06/21/23 07:34 Labs: Abnormal Lab Results - Last 24 Hours (Table) 06/20/23 06/20/23 06/21/23 Range/Units 16:45 20:05 07:03 WBC (3.8-10.6) k/uL RDW (11.5-15.5) % Carbon Dioxide (22-30) mmol/L BUN (9-20) mg/dL Creatinine (0.66-1.25) mg/dL Glucose (74-99) mg/dL POC Glucose (mg/dL) 132 H 163 H 126 H (70-110) mg/dL 06/21/23 06/21/23 06/21/23 Range/Units 07:34 07:34 11:21 WBC 11.8 H (3.8-10.6) k/uL RDW 16.0 H (11.5-15.5) % Carbon Dioxide 36 H (22-30) mmol/L BUN 22 H (9-20) mg/dL Creatinine 0.56 L (0.66-1.25) mg/dL Glucose 123 H (74-99) mg/dL POC Glucose (mg/dL) 154 H (70-110) mg/dL Microbiology - Last 24 Hours (Table) 06/17/23 08:55 Blood Culture - Preliminary Blood Assessment and Plan (1) Bacteremia Current Visit: Yes Status: Acute Code(s): R78.81 - BACTEREMIA SNOMED Code(s): 2687688 (2) Allergy to multiple antibiotics Current Visit: Yes Status: Acute Code(s): Z88.1 - ALLERGY STATUS TO OTHER ANTIBIOTIC AGENTS SNOMED Code(s): 297122600 (3) Pneumonia Current Visit: Yes Status: Acute Code(s): J18.9 - PNEUMONIA, UNSPECIFIED ORGANISM SNOMED Code(s): 421373336 Plan: 1patient presented to hospital with sepsis in this patient who did have a fever tachycardia elevated white count source is likely pneumonia in this patient who did have a respiratory symptoms and evidence of multifocal pneumonia on the chest x-ray likely community-acquired 2patient with Streptococcus pneumonia bacteremia source likely pneumonia 3patient with allergy to ceftriaxone reported has diarrhea which is more of a side effect , Rather than true allergies. 4patient has shown clinical improvement fever resolved white count is down and is currently only requiring 2 L nasal cannula oxygen he will be able to finish therapy with oral Ceftin to finish a total of 2-week course of therapy Dictation was produced using [employer] dictation software. please excuse any grammatical, word or spelling errors. Time with Patient: Less than 30
[2023-06-21] MEDS: DILTIAZEM 125 MG in SODIUM CHLORIDE 0.9% 100 ML IV SCH (15:28)
--- NOTE | 2023-06-21 16:18 | P.PN ---
Subjective Progress Note Date: 06/21/23 No new complaints today. Pt is doing well. Started on dilt gtt yesterday and still on it today. Cardiology is uptitrating his meds for rate control. Gen: awake, alert HEENT: normocephalic, atraumatic, good hearing acuity, moist mucous membranes Resp: good air exchange, breathing comfortably with no accessory muscle use CVS: good distal perfusion x 4, GI: soft, NTTP, ND : no SPT, no CVAT, melo catheter not present MSK: no pitting edema, no clubbing Neuro: non-focal, moving all extremities Psych: cooperative, euthymic mood Hospital course: Patient is a 68 yo male with a know A fib anticoagulated with eliquis, COPD on home O2 as needed, DM2, GERD, HTN, HLD, and multiple toehr comorbid conditions who presented to the ED with complaints of shortness of breath and fevers. The ER he was noted to be febrile with a temp of 101.2 and a pulse of 154 and was satting 90% on 15 L nonrebreather. Laboratory analysis remarkable for white blood cell count 15, platelets 125. Influenza A/B/RC/COVID-19 PCR was negative. BNP mildly elevated at 2110. EKG demonstrated atrial fibrillation with rapid ventricular response. Chest x-ray demonstrated bilateral multifocal pneumonia. Infectious disease and cardiology were consulted. Echocardiogram revealed bicuspid aortic valve as well as a dilated aortic root at 1.5 cm, EF preserved at 50-55%. Blood cultures came back positive for strep pneumonia. It was felt that his blood cultures are likely related to his pneumonia both being caused by strep. His Levaquin was discontinued and he was started on Rocephin. Continue to improve. He was restarted on Cardizem drip by cardiology on 06/20/23. Assessment/Plan: Community acquired multifocal pneumonia, likely strep Strep Bacteremia Acute on chronic hypoxic respiratory failure, uses as needed oxygen at home Sepsis Acute exacerbation of COPD - Case discussed with Dr. Shirley. Can finish antibiotics with Ceftin to complete a total of 10 days of Beta lactam abx. - Rocephin 2 g IVPB every 24 hours day #5 (patient also completed 2 days of Levaquin prior) - unable to obtain sputum culture, legionella urine antigen negative - Douneb 4 times daily and every 2 hours as needed, and Symbicort 2 puffs twice daily - Prednisone 60mg daily - Continue Singular - Wean O2 as able-- patient has O2 at home - Mucinex 1200 mg PO BID - Repeat Blood cultures form - negative to date - [place] to [id number] prn - Lactobacillus 1 tablet 3 times daily Constipation -Colace 100 mg twice daily Paroxysmal Atrial fibrillation with rapid ventricular response, Bicuspid aortic valve with moderate Dilated aortic root Hypertension Dyslipidemia Diastolic Congestive heart failure with mild exacerbation, EF of 50-55% - Cardiology note reviewed: Outpatient CTA to better size aortic root. Possible rhythm control strategy for A. fib on outpatient basis. - Cardizem to 240 mg daily and cardizem gtt at 5 mg/hr - Lasix 20 mg PO BID -Continue with Eliquis 2.5 mg twice daily Thrombocytopenia - suspect reactive to acute illness. - no indication for transfusion - Repeat CBC in AM Diabetes mellitus type 2 -Hold metformin -Sliding-scale insulin -A1c 5.8 Chronic: See arthritis Prior pulmonary embolism Obstructive sleep apnea Neuropathy Spinal stenosis Imaging: None Data Review: Sugars reviewed 131-221 DVT prophylaxis: Eliquis Anticipated discharge date: in AM if HR controlled Anticipated discharge place: Home This dictation was prepared using [employer] voice recognition software. Though every attempt is made to correct errors during dictation some may still exist. Objective - Vital Signs Vital signs: Vital Signs Temp 97.8 F 06/21/23 15:26 Pulse 102 H 06/21/23 15:26 Resp 18 06/21/23 15:26 BP 124/90 06/21/23 15:26 Pulse Ox 93 L 06/21/23 15:26 FiO2 Intake & Output 06/20/23 06/21/23 06/21/23 18:59 06:59 18:59 Intake Total 374 10 595 Output Total 300 425 Balance 374 -290 170 Intake: IV 20 10 Invasive Line 1 20 Invasive Line 2 10 Intake, IV Titration 125 Amount Diltiazem 125 mg In 125 Sodium Chloride 0.9% 100 ml @ 5 MG/HR 5 mls/hr IV .Q24H [facility] Rx#:[id number] Oral 354 470 Output: Urine 300 425 Other: Voiding Method Bedside Commode Bedside Commode # Voids 3 - Labs CBC & Chem 7: 06/21/23 07:34 06/21/23 07:34 Labs: Abnormal Lab Results - Last 24 Hours (Table) 06/20/23 06/20/23 06/21/23 Range/Units 16:45 20:05 07:03 WBC (3.8-10.6) k/uL RDW (11.5-15.5) % Carbon Dioxide (22-30) mmol/L BUN (9-20) mg/dL Creatinine (0.66-1.25) mg/dL Glucose (74-99) mg/dL POC Glucose (mg/dL) 132 H 163 H 126 H (70-110) mg/dL 06/21/23 06/21/23 06/21/23 Range/Units 07:34 07:34 11:21 WBC 11.8 H (3.8-10.6) k/uL RDW 16.0 H (11.5-15.5) % Carbon Dioxide 36 H (22-30) mmol/L BUN 22 H (9-20) mg/dL Creatinine 0.56 L (0.66-1.25) mg/dL Glucose 123 H (74-99) mg/dL POC Glucose (mg/dL) 154 H (70-110) mg/dL Microbiology - Last 24 Hours (Table) 06/17/23 08:55 Blood Culture - Preliminary Blood
[2023-06-21 16:51] LABS: Glucose,Whole Blood 158 mg/dL (70-110)
[2023-06-21] MEDS: PRAVASTATIN SODIUM 40 MG TAB PO SCH (19:54)
[2023-06-21] MEDS: MONTELUKAST 10 MG TAB PO SCH (19:55)
[2023-06-21] MEDS: FLUTICASONE 50MCG/SPRAY NASAL 16GM EA NOSTRIL SCH (19:56)
[2023-06-21 20:14] LABS: Glucose,Whole Blood 173 mg/dL (70-110)
[2023-06-21] MEDS: LORazepam 1 MG TAB PO PRN (23:11)
[2023-06-22 06:31] LABS: Glucose,Whole Blood 87 mg/dL (70-110)
[2023-06-22] MEDS: INSULIN ASPART (NovoLOG) 100 UNIT/ML VIAL SQ SCH ×7 (06:32→20:26)
[2023-06-22] MEDS: INSULIN DETEMIR (LEVEMIR) 100 UNIT/ML SYR SQ SCH (06:36)
[2023-06-22] MEDS: LACTOBACILLUS ACIDOPHILUS/PECT 1 EACH CAPSULE PO SCH ×3 (06:40→16:59)
[2023-06-22] MEDS: PANTOPRAZOLE 40 MG TABLET PO SCH (06:41)
[2023-06-22] MEDS: SERTRALINE 100 MG TAB PO SCH (09:07)
[2023-06-22] MEDS: FUROSEMIDE 20 MG TAB PO SCH ×2 (09:07→20:25)
[2023-06-22] MEDS: predniSONE 20 MG TAB PO SCH (09:07)
[2023-06-22] MEDS: guaiFENesin 600 MG TABLET.ER PO SCH ×2 (09:07→20:25)
[2023-06-22] MEDS: DILTIAZEM CD 240 MG CAP.ER.24H PO SCH (09:07)
[2023-06-22] MEDS: PREGABALIN 100 MG CAP PO SCH ×2 (09:07→20:26)
[2023-06-22] MEDS: APIXABAN 2.5 MG TABLET PO SCH ×2 (09:07→20:25)
[2023-06-22] MEDS: HYDROcodone/APAP 5-325MG 1 EACH TAB PO PRN ×3 (09:07→23:54)
[2023-06-22] MEDS: FERROUS SULFATE 325 MG TAB PO SCH (09:07)
[2023-06-22] MEDS: IPRATROPIUM-ALBUTEROL 3 ML NEB INHALATION SCH ×4 (09:36→22:07)
[2023-06-22] MEDS: SYMBICORT 80-4.5 MCG INHALER INHALATION SCH ×2 (09:37→22:06)
[2023-06-22] MEDS ORDERED: DIGOXIN 250 MCG/ML 2 ML AMP IVP ONE (10:27)
[2023-06-22] MEDS: DILTIAZEM 125 MG in SODIUM CHLORIDE 0.9% 100 ML IV SCH (11:01)
[2023-06-22] MEDS: DIGOXIN 125 MCG TAB PO SCH (11:01)
[2023-06-22 11:34] LABS: Glucose,Whole Blood 106 mg/dL (70-110)
--- NOTE | 2023-06-22 14:29 | P.PN ---
Subjective Progress Note Date: 06/22/23 No new complaints today. Pt is doing well. Started on dilt gtt and still on it today. Cardiology is uptitrating his meds for rate control and adding digoxin today Gen: awake, alert HEENT: normocephalic, atraumatic, good hearing acuity, moist mucous membranes Resp: good air exchange, breathing comfortably with no accessory muscle use CVS: good distal perfusion x 4, GI: soft, NTTP, ND : no SPT, no CVAT, melo catheter not present MSK: no pitting edema, no clubbing Neuro: non-focal, moving all extremities Psych: cooperative, euthymic mood Hospital course: Patient is a 68 yo male with a know A fib anticoagulated with eliquis, COPD on home O2 as needed, DM2, GERD, HTN, HLD, and multiple toehr comorbid conditions who presented to the ED with complaints of shortness of breath and fevers. The ER he was noted to be febrile with a temp of 101.2 and a pulse of 154 and was satting 90% on 15 L nonrebreather. Laboratory analysis remarkable for white blood cell count 15, platelets 125. Influenza A/B/RC/COVID-19 PCR was negative. BNP mildly elevated at 2110. EKG demonstrated atrial fibrillation with rapid ventricular response. Chest x-ray demonstrated bilateral multifocal pneumonia. Infectious disease and cardiology were consulted. Echocardiogram revealed bicuspid aortic valve as well as a dilated aortic root at 1.5 cm, EF preserved at 50-55%. Blood cultures came back positive for strep pneumonia. It was felt that his blood cultures are likely related to his pneumonia both being caused by strep. His Levaquin was discontinued and he was started on Rocephin. Continue to improve. He was restarted on Cardizem drip by cardiology on 06/20/23. Assessment/Plan: Community acquired multifocal pneumonia, likely strep Strep Bacteremia Acute on chronic hypoxic respiratory failure, uses as needed oxygen at home Sepsis Acute exacerbation of COPD - Case discussed with Dr. Shirley. Can finish antibiotics with Ceftin to complete a total of 10 days of Beta lactam abx. - Rocephin 2 g IVPB every 24 hours day #5 (patient also completed 2 days of Levaquin prior) - unable to obtain sputum culture, legionella urine antigen negative - Douneb 4 times daily and every 2 hours as needed, and Symbicort 2 puffs twice daily - Prednisone 60mg daily - Continue Singular - Wean O2 as able-- patient has O2 at home - Mucinex 1200 mg PO BID - Repeat Blood cultures form - negative to date - [place] to [id number] prn - Lactobacillus 1 tablet 3 times daily Constipation -Colace 100 mg twice daily Paroxysmal Atrial fibrillation with rapid ventricular response, Bicuspid aortic valve with moderate Dilated aortic root Hypertension Dyslipidemia Diastolic Congestive heart failure with mild exacerbation, EF of 50-55% - Cardiology note reviewed: Outpatient CTA to better size aortic root. Possible rhythm control strategy for A. fib on outpatient basis. - Cardizem to 240 mg daily and cardizem gtt at 5 mg/hr - Lasix 20 mg PO BID -Continue with Eliquis 2.5 mg twice daily Thrombocytopenia - suspect reactive to acute illness. - no indication for transfusion - Repeat CBC in AM Diabetes mellitus type 2 -Hold metformin -Sliding-scale insulin -A1c 5.8 Chronic: See arthritis Prior pulmonary embolism Obstructive sleep apnea Neuropathy Spinal stenosis Imaging: None Data Review: Sugars reviewed 131-221 DVT prophylaxis: Eliquis Anticipated discharge date: in AM if HR controlled Anticipated discharge place: Home This dictation was prepared using [employer] voice recognition software. Though every attempt is made to correct errors during dictation some may still exist. Objective - Vital Signs Vital signs: Vital Signs Temp 98.0 F 06/22/23 04:00 Pulse 103 H 06/22/23 13:07 Resp 20 06/22/23 11:00 BP 120/87 06/22/23 11:00 Pulse Ox 93 L 06/22/23 11:00 FiO2 Intake & Output 06/21/23 06/22/23 06/22/23 18:59 06:59 18:59 Intake Total 831 542.75 Output Total 805 436 5924 Balance 406 -400 -857.25 Intake: Intake, IV Titration 125 97.75 Amount Diltiazem 125 mg In 125 97.75 Sodium Chloride 0.9% 100 ml @ 5 MG/HR 5 mls/hr IV .Q24H [facility] Rx#:[id number] Oral 706 445 Output: Urine 443 335 7232 Other: Voiding Method Bedside Commode Bedside Commode Bedside Commode # Voids 1 # Bowel Movements 1 - Labs CBC & Chem 7: 06/21/23 07:34 06/21/23 07:34 Labs: Abnormal Lab Results - Last 24 Hours (Table) 06/21/23 06/21/23 Range/Units 16:49 20:12 POC Glucose (mg/dL) 158 H 173 H (70-110) mg/dL
--- NOTE | 2023-06-22 14:54 | P.PN ---
Subjective Progress Note Date: 06/22/23 HISTORY OF PRESENTING ILLNESS 68-year-old male with past medical history of atrial fibrillation status post cardioversion in December 2020. Since then he has stayed out of atrial fibrillation. In December 2020 he also had left and right heart catheterization left heart showed that he has mild nonobstructive disease. Right heart showed mild pulmonary hypertension, normal pulmonary vascular resistance, no step up on oxygen saturations. He was managed on Eliquis and has had 2 episodes of GI bleeding in past while being with systemic and evaluation. This time he presented to the hospital because of worsening shortness of breath. His chest x-ray admission shows concerns of bilateral multifocal pneumonia. He also had some fever and chills at home and along with increased coughing. On admission he is noticed to have atrial ablation with rapid ventricular response. Labs on admission WBC 15, platelets 125, hemoglobin 14, sodium 137, potassium 3.8, creatinine 0.5, troponin negative. BNP 199906/17/2023 Patient is seen and examined at bedside the same. His blood cultures are positive for Streptococcus pneumoniae. Pro-calcitonin 7, TSH 0.4 131/89, heart rate 108 beats minute, atrial fibrillation 06/18/2023 Patient is seen and examined at bedside the same. Patient is doing well from Cardec standpoint. He is rate controlled atrial fibrillation. 1/ Patient is seen today in follow-up. Heart rate is running 90-100 in atrial fibrillation. He is currently maintained on eliquis, Cardizem CD 180 mg daily, Lasix 20 mg oral twice daily. Repeat blood work reveals WBC 6.1, hemoglobin 11.8, platelet count 142. BUN 24 creatinine 0.51. 06/20 Heart rate is running in the low 100s and atrial fibrillation. Patient has been maintained on Cardizem CD 180 mg daily. This also start patient on Cardizem drip. Blood pressure 122/71, pulse ox 92% on 3 L. 06/21 Telemetry remains in atrial fibrillation running about 100 bpm. Patient maintained on IV Cardizem drip at 5 mg per hour as well as oral Cardizem CD 180 mg daily. Blood pressure 127/85, pulse ox 91% on 2 L nasal cannula. Repeat blood work reveals BUN 22 creatinine 0.56, potassium 3.5. WBC 11.8 and hemoglobin 14.3. 06/22 The patient has been on Cardizem drip at 5 mg per hour. He has also been on oral Cardizem at 240 mg that has started this morning for his first dose. Heart rate is controlled in the 90s. Blood pressure 120/87. PHYSICAL EXAMINATION Vital signs reviewed. Head: Normocephalic. Eyes: Sclerae nonicteric. Lungs: Bilateral wheezing Heart: Irregularly irregular and rhythm, S1-S2, no S3, systolic murmur Extremities: No edema, intact distal pulses. ASSESSMENT Atrial fibrillation with rapid ventricular response. Last cardioversion December 2020. Was in sinus rhythm since. Most likely relapse due to sepsis and pneu monia Bicuspid aortic valve with moderate aortic stenosis Dilated aortic root 4.5 cm Mild pulmonary hypertension Acute hypoxic respiratory failure thrombocytopenia Prior history of GI bleeding on anticoagulation Sepsis Multifocal pneumonia, streptococcal Echo showed EF 55%, moderate aortic stenosis, bicuspid aortic valve, dilated aortic root 4.5 cm PLAN Continue Eliquis 5 mg twice a day Continue Cardizem to 240 mg daily Continue Cardizem drip at 5 mg per hour. Plan to discontinue Cardizem drip tomorrow morning at 7 AM. Continue IV antibiotics for pneumonia Start patient on digoxin, one dose of IV 250 g now followed by 125 g orally starting today Patient will outpatient follow-up and a possible aortic CTA to size it better. He will need a one-year follow-up aortic CTA thereafter He would also benefit from rhythm control strategy for atrial fibrillation. This should be evaluated on outpatient basis. Nurse practitioner note has been reviewed, I agree with the documented findings and plan of care. Patient was seen and examined. Objective - Vital Signs Vital signs: Vital Signs Temp 98.0 F 06/22/23 04:00 Pulse 103 H 06/22/23 13:07 Resp 20 06/22/23 11:00 BP 120/87 06/22/23 11:00 Pulse Ox 93 L 06/22/23 11:00 FiO2 Intake & Output 06/21/23 06/22/23 06/22/23 18:59 06:59 18:59 Intake Total 831 542.75 Output Total 031 500 4975 Balance 406 -400 -857.25 Intake: Intake, IV Titration 125 97.75 Amount Diltiazem 125 mg In 125 97.75 Sodium Chloride 0.9% 100 ml @ 5 MG/HR 5 mls/hr IV .Q24H [facility] Rx#:[id number] Oral 706 445 Output: Urine 492 655 1348 Other: Voiding Method Bedside Commode Bedside Commode Bedside Commode # Voids 1 # Bowel Movements 1 - Labs CBC & Chem 7: 06/21/23 07:34 06/21/23 07:34 Labs: Abnormal Lab Results - Last 24 Hours (Table) 06/21/23 06/21/23 Range/Units 16:49 20:12 POC Glucose (mg/dL) 158 H 173 H (70-110) mg/dL
[2023-06-22 16:48] LABS: Glucose,Whole Blood 229 mg/dL (70-110)
--- NOTE | 2023-06-22 16:57 | P.PN ---
Subjective Progress Note Date: 06/22/23 Principal diagnosis: Reason for follow-up is pneumonia and bacteremia. Patient is a 70-year-old male with multiple comorbidities presented to hospital because of shortness of breath and cough patient did have a fever elevated white count concerning for pneumonia subsequently blood cultures came back positive with strep pneumo On today's evaluation that is 06/22/2023, the patient continues to be afebrile, patient is breathing comfortably on 2 L nasal cannula oxygen, the patient denies any chest pain shortness of breath cough has decreased in intensity mostly dry nature, no nausea vomiting no abdominal pain and no diarrhea Patient did have white count of 11.8 as of yesterday no lab draw today Objective - Vital Signs Vital signs: Vital Signs Temp 98.0 F 06/22/23 04:00 Pulse 102 H 06/22/23 09:59 Resp 18 06/22/23 04:00 BP 135/88 06/22/23 04:00 Pulse Ox 94 L 06/22/23 09:37 FiO2 Intake & Output 06/21/23 06/22/23 06/22/23 18:59 06:59 18:59 Intake Total 831 335 Output Total 425 400 300 Balance 406 -400 35 Intake: Intake, IV Titration 125 Amount Diltiazem 125 mg In 125 Sodium Chloride 0.9% 100 ml @ 5 MG/HR 5 mls/hr IV .Q24H [facility] Rx#:[id number] Oral 706 335 Output: Urine 425 400 300 Other: Voiding Method Bedside Commode Bedside Commode Bedside Commode - Exam GENERAL DESCRIPTION: An elderly male up in bed in no distress RESPIRATORY SYSTEM: Unlabored breathing , coarse breath sounds bilaterally HEART: S1 S2 regular rate and rhythm , ABDOMEN: Soft , no tenderness EXTREMITIES: No edema feet - Labs CBC & Chem 7: 06/21/23 07:34 06/21/23 07:34 Labs: Abnormal Lab Results - Last 24 Hours (Table) 06/21/23 06/21/23 06/21/23 Range/Units 11:21 16:49 20:12 POC Glucose (mg/dL) 154 H 158 H 173 H (70-110) mg/dL Assessment and Plan (1) Bacteremia Current Visit: Yes Status: Acute Code(s): R78.81 - BACTEREMIA SNOMED Code(s): 0928001 (2) Allergy to multiple antibiotics Current Visit: Yes Status: Acute Code(s): Z88.1 - ALLERGY STATUS TO OTHER ANTIBIOTIC AGENTS SNOMED Code(s): 118818660 (3) Pneumonia Current Visit: Yes Status: Acute Code(s): J18.9 - PNEUMONIA, UNSPECIFIED ORGANISM SNOMED Code(s): 055007755 Plan: 1patient presented to hospital with sepsis in this patient who did have a fever tachycardia elevated white count source is likely pneumonia in this patient who did have a respiratory symptoms and evidence of multifocal pneumonia on the chest x-ray likely community-acquired 2patient with Streptococcus pneumonia bacteremia source likely pneumonia 3patient with allergy to ceftriaxone reported has diarrhea which is more of a side effect , Rather than true allergies. 4patient did have improving his respiratory status requiring less supplemental oxygen, cough has decreased in intensity we will keep the patient on Rocephin while inpatient however plan to finish therapy with oral Ceftin Dictation was produced using [employer] dictation software. please excuse any grammatical, word or spelling errors. Time with Patient: Less than 30
[2023-06-22 20:00] LABS: Glucose,Whole Blood 165 mg/dL (70-110)
[2023-06-22] MEDS: MONTELUKAST 10 MG TAB PO SCH (20:25)
[2023-06-22] MEDS: PRAVASTATIN SODIUM 40 MG TAB PO SCH (20:26)
[2023-06-22] MEDS: FLUTICASONE 50MCG/SPRAY NASAL 16GM EA NOSTRIL SCH (20:30)
[2023-06-22] MEDS: LORazepam 1 MG TAB PO PRN (23:51)
[2023-06-23 06:33] LABS: Glucose,Whole Blood 92 mg/dL (70-110)
[2023-06-23] MEDS: INSULIN ASPART (NovoLOG) 100 UNIT/ML VIAL SQ SCH ×4 (06:45→11:29)
[2023-06-23] MEDS: INSULIN DETEMIR (LEVEMIR) 100 UNIT/ML SYR SQ SCH (06:48)
[2023-06-23] MEDS: LACTOBACILLUS ACIDOPHILUS/PECT 1 EACH CAPSULE PO SCH ×2 (06:48→11:35)
[2023-06-23] MEDS: PANTOPRAZOLE 40 MG TABLET PO SCH (06:48)
[2023-06-23] MEDS: IPRATROPIUM-ALBUTEROL 3 ML NEB INHALATION SCH ×2 (07:48→11:26)
[2023-06-23] MEDS: SYMBICORT 80-4.5 MCG INHALER INHALATION SCH (07:48)
[2023-06-23] MEDS: PREGABALIN 100 MG CAP PO SCH (09:19)
[2023-06-23] MEDS: DIGOXIN 125 MCG TAB PO SCH (09:19)
[2023-06-23] MEDS: FERROUS SULFATE 325 MG TAB PO SCH (09:20)
[2023-06-23] MEDS: guaiFENesin 600 MG TABLET.ER PO SCH (09:20)
[2023-06-23] MEDS: DILTIAZEM CD 240 MG CAP.ER.24H PO SCH (09:20)
[2023-06-23] MEDS: predniSONE 20 MG TAB PO SCH (09:20)
[2023-06-23] MEDS: SERTRALINE 100 MG TAB PO SCH (09:20)
[2023-06-23] MEDS: APIXABAN 2.5 MG TABLET PO SCH (09:20)
[2023-06-23] MEDS: FUROSEMIDE 20 MG TAB PO SCH (09:21)
[2023-06-23 09:34] VITALS: BP 127/84; PULSE 87; RESP 18; TEMP 97.3
[2023-06-23 11:28] LABS: Glucose,Whole Blood 96 mg/dL (70-110)
--- NOTE | 2023-06-23 12:24 | P.DS ---
Providers Date of admission: 06/15/23 18:52 Expected date of discharge: 06/23/23 Attending physician: Ramonita Carvalho MD Consults: 06/16/23 09:40 Consult Physician Routine Consulting Provider: Jeremiah Shirley Consult Reason/Comments: pneumonia Do you want consulting provider notified?: Yes 06/16/23 09:43 Consult Physician Routine Consulting Provider: Cal Foster Consult Reason/Comments: a fib with rvr Do you want consulting provider notified?: Yes Primary care physician: [facility] Course: Community acquired multifocal pneumonia, likely strep Strep Bacteremia Acute on chronic hypoxic respiratory failure, uses as needed oxygen at home Sepsis Acute exacerbation of COPD Constipation Paroxysmal Atrial fibrillation with rapid ventricular response, Bicuspid aortic valve with moderate Dilated aortic root Hypertension Dyslipidemia Diastolic Congestive heart failure with mild exacerbation, EF of 50-55% Thrombocytopenia Diabetes mellitus type 2 See arthritis Prior pulmonary embolism Obstructive sleep apnea Neuropathy Spinal stenosis Hospital course: Patient is a 68 yo male with a know A fib anticoagulated with eliquis, COPD on home O2 as needed, DM2, GERD, HTN, HLD, and multiple other comorbid conditions who presented to the ED with complaints of shortness of breath and fevers. The ER he was noted to be febrile with a temp of 101.2 and a pulse of 154 and was satting 90% on 15 L nonrebreather. Laboratory analysis remarkable for white blood cell count 15, platelets 125. Influenza A/B/RC/COVID-19 PCR was negative. BNP mildly elevated at 2110. EKG demonstrated atrial fibrillation with rapid ventricular response. Chest x-ray demonstrated bilateral multifocal pneumonia. Infectious disease and cardiology were consulted. Echocardiogram revealed bicuspid aortic valve as well as a dilated aortic root at 1.5 cm, EF preserved at 50-55%. Blood cultures came back positive for strep pneumonia. It was felt that his blood cultures are likely related to his pneumonia both being caused by strep. His Levaquin was discontinued and he was started on Rocephin. Continued to improve, ID recommended completing abx course with ceftin for total 10 day course, an additional 4 days were prescribed on discharge. He was restarted on Cardizem drip by cardiology on 06/20/23. PO cardizem was uptitrated to 240mg and digoxin was added for rate control, and patient was in the 70s-80s HR when discharged. Pt was also prescribed a prednisone taper for 15 days since he had been on steroids during hospitalization. I spent 40 minutes coordinating this discharge on 06/23 Gen: awake, alert HEENT: normocephalic, atraumatic, good hearing acuity, moist mucous membranes Resp: good air exchange, breathing comfortably with no accessory muscle use CVS: good distal perfusion x 4, GI: soft, NTTP, ND : no SPT, no CVAT, melo catheter not present MSK: no pitting edema, no clubbing Neuro: non-focal, moving all extremities Psych: cooperative, euthymic mood Patient Condition at Discharge: Good Plan - Discharge Summary Discharge Rx Participant: No New Discharge Prescriptions: New Diltiazem Cd [Cardizem CD] 240 mg PO DAILY #30 cap cefUROXime axetiL [Ceftin] 500 mg PO BID 4 Days #8 tab Digoxin [Lanoxin] 125 mcg PO DAILY #30 tab predniSONE [Deltasone] See Rx Instructions .ROUTE .COMPLEX #15 tab Continue Pregabalin [Lyrica] 300 mg PO BID Montelukast Sodium [Singulair] 10 mg PO HS Potassium Chloride [K-Tab ER] 20 meq PO BID Furosemide [Lasix] 20 mg PO BID Betamethasone Dipropionate [Betamethasone Dipropionate 0.05% Cream] 1 applic TOPICAL BID PRN PRN Reason: Skin Irritation Fluticasone Nasal [place] [Flonase Nasal [place]] 2 spr EA NOSTRIL HS Ipratropium-Albuterol Nebulize [Duoneb 0.5 mg-3 mg/3 ml Soln] 3 ml INHALATION RT-QID PRN PRN Reason: Shortness Of Breath Ipratropium [place] 0.06%Nasal [Atrovent Nasal 0.06%] 2 spray EA NOSTRIL DAILY Ketoconazole 2% Shampoo [Nizoral] 1 applic TOPICAL DAILY PRN PRN Reason: RASH/DANDRUFF Formoterol Fumarate [Perforomist] 20 mcg INHALATION RT-BID PRN PRN Reason: Shortness Of Breath Ferrous Sulfate [Feosol] 325 mg PO DAILY #30 tab HYDROcodone/APAP 5-325MG [[place] 5-325] 1 tab PO BID PRN PRN Reason: Pain Albuterol Sulfate [Ventolin HFA] 2 puff INHALATION RT-QID PRN PRN Reason: Shortness Of Breath Betamethasone Dipropionate [Betamethasone Diprop Augm Gel 0.05%] 1 applic TOPICAL DAILY PRN PRN Reason: Skin Irritation Diclofenac Sodium Gel [Voltaren 1% Gel] 1 applic TOPICAL QID PRN PRN Reason: Pain metFORMIN HCL [Glucophage] 1,000 mg PO BID Budesonide [Pulmicort] 0.5 mg INHALATION RT-BID PRN PRN Reason: Shortness Of Breath Fluticasone/Umeclidin/Vilanter [Trelegy Ellipta 200-62.5-25] 1 puff INHALATION RT-DAILY traMADol HCL 100 mg PO Q6H PRN PRN Reason: Pain Pravastatin Sodium [Pravachol] 40 mg PO HS Sertraline [Zoloft] 100 mg PO DAILY Pantoprazole [Protonix] 40 mg PO AC-BRKFST #30 tab Collagenase [Santyl Ointment] 1 applic TOPICAL DAILY PRN PRN Reason: WOUNDS Apixaban [Eliquis] 2.5 mg PO BID Discontinued dilTIAZem HCL [Cartia Xt] 120 mg PO DAILY Discharge Medication List Pregabalin [Lyrica] 300 mg PO BID 08/18/17 [History] Montelukast Sodium [Singulair] 10 mg PO HS 01/29/18 [History] Furosemide [Lasix] 20 mg PO BID 07/11/18 [History] Potassium Chloride [K-Tab ER] 20 meq PO BID 07/11/18 [History] Betamethasone Dipropionate [Betamethasone Dipropionate 0.05% Cream] 1 applic TOPICAL BID PRN 09/02/18 [History] Fluticasone Nasal [place] [Flonase Nasal [place]] 2 spr EA NOSTRIL HS 06/28/19 [History] Ipratropium-Albuterol Nebulize [Duoneb 0.5 mg-3 mg/3 ml Soln] 3 ml INHALATION RT-QID PRN 06/28/19 [History] Ipratropium [place] 0.06%Nasal [Atrovent Nasal 0.06%] 2 spray EA NOSTRIL DAILY 06/30/19 [History] Albuterol Sulfate [Ventolin HFA] 2 puff INHALATION RT-QID PRN 05/21/21 [History] Betamethasone Dipropionate [Betamethasone Diprop Augm Gel 0.05%] 1 applic TOPICAL DAILY PRN 05/21/21 [History] Diclofenac Sodium Gel [Voltaren 1% Gel] 1 applic TOPICAL QID PRN 05/21/21 [History] Ketoconazole 2% Shampoo [Nizoral] 1 applic TOPICAL DAILY PRN 05/21/21 [History] metFORMIN HCL [Glucophage] 1,000 mg PO BID 05/21/21 [History] Budesonide [Pulmicort] 0.5 mg INHALATION RT-BID PRN 01/01/23 [History] Fluticasone/Umeclidin/Vilanter [Trelegy Ellipta 200-62.5-25] 1 puff INHALATION RT-DAILY 01/01/23 [History] Formoterol Fumarate [Perforomist] 20 mcg INHALATION RT-BID PRN 01/01/23 [History] Pravastatin Sodium [Pravachol] 40 mg PO HS 01/01/23 [History] Sertraline [Zoloft] 100 mg PO DAILY 01/01/23 [History] traMADol HCL 100 mg PO Q6H PRN 01/01/23 [History] Ferrous Sulfate [Feosol] 325 mg PO DAILY #30 tab 01/07/23 [Rx] Pantoprazole [Protonix] 40 mg PO AC-BRKFST #30 tab 01/07/23 [Rx] Apixaban [Eliquis] 2.5 mg PO BID 06/15/23 [History] Collagenase [Santyl Ointment] 1 applic TOPICAL DAILY PRN 06/15/23 [History] HYDROcodone/APAP 5-325MG [[place] 5-325] 1 tab PO BID PRN 06/15/23 [History] Digoxin [Lanoxin] 125 mcg PO DAILY #30 tab 06/23/23 [Rx] Diltiazem Cd [Cardizem CD] 240 mg PO DAILY #30 cap 06/23/23 [Rx] cefUROXime axetiL [Ceftin] 500 mg PO BID 4 Days #8 tab 06/23/23 [Rx] predniSONE [Deltasone] See Rx Instructions .ROUTE .COMPLEX #15 tab 06/23/23 [Rx] Follow up Appointment(s)/Referral(s): Wei Henry DO [Primary Care Provider] - 1-2 days (please call and make appointment) [facility] Visiting Nurse, [NON-STAFF] - 1-2 Days (home care will call to set up appointment, any questions please call agency. ) Patient Instructions/Handouts: A-fib (Atrial Fibrillation) (DC), Pneumonia (DC) Discharge Disposition: HOME WITH HOME HEALTH SERVICES
--- NOTE | 2023-06-23 13:49 | P.PN ---
Subjective Progress Note Date: 06/23/23 This is Nigel Singh NP, I'm dictating on behalf of Dr. Palmer's H&P and A&P. Patient was interviewed and examined. Patient is a pleasant 68-year-old male who was admitted to hospital with pneumonia and sepsis, and subsequently went into A. fib with rapid ventricular response. Patient was initially started on a diltiazem drip, and then started on diltiazem 180 mg daily. This was not adequately controlling his heart rate, so the diltiazem was increased to 240 mg daily. Patient was also given a dose of digoxin, which together has helped in controlling his heart rate adequately. Today patient reports that he's feeling good. He is denying chest pain, heart palpitations, shortness of breath, and dizziness. GENERAL: Well-appearing, well-nourished and in no acute distress. NECK: Supple without JVD or thyromegaly. LUNGS: Breath sounds clear to auscultation bilaterally. Respiration equal and unlabored. No wheezes, rales or rhonchi. HEART: Regular rate and irregular rhythm without murmurs, rubs or gallops. S1 and S2 heard. EXTREMITIES: Normal range of motion, no edema. No clubbing or cyanosis. Peripheral pulses intact and strong. VITALS: Temp 97.3, pulse 87, respirations 18, blood pressure 127/84, O2 saturation 93% on 2 L TELEMETRY: Atrial fibrillation with controlled ventricular response LABS: No new labs since 06/21/2023 IMPRESSION: 1. Atrial fibrillation with rapid ventricular response 2. Bicuspid aortic valve with moderate aortic stenosis 3. Dilated aortic root at 4.5 cm 4. Mild pulmonary hypertension 5. Acute hypoxic respiratory failure 6. Sepsis with pneumonia 7. Thrombocytopenia PLAN: Patient may be discharged from a cardiology standpoint. Patient should continue diltiazem CD 240 mg daily, digoxin 125 g daily, Lasix 20 mg twice a day. Patient should have outpatient follow-up with cardiology for possible aortic CTA for better sizing. Will need yearly follow-up aortic CTAs thereafter. Thank you for allowing us participate in the care of this patient. Objective - Vital Signs Vital signs: Vital Signs Temp 97.3 F L 06/23/23 09:14 Pulse 87 06/23/23 09:55 Resp 18 01/06/24 09:55 BP 127/84 06/23/23 09:14 Pulse Ox 93 L 06/23/23 09:14 FiO2 Intake & Output 06/22/23 06/23/23 06/23/23 18:59 06:59 18:59 Intake Total 877.75 Output Total 1640 1625 Balance -762.25 -1625 Intake: Intake, IV Titration 97.75 Amount Diltiazem 125 mg In 97.75 Sodium Chloride 0.9% 100 ml @ 5 MG/HR 5 mls/hr IV .Q24H [facility] Rx#:[id number] Oral 780 Output: Urine 1640 1625 Other: Voiding Method Bedside Commode Bedside Commode Bedside Commode # Voids 1 # Bowel Movements 1 - Labs CBC & Chem 7: 06/21/23 07:34 06/21/23 07:34 Labs: Abnormal Lab Results - Last 24 Hours (Table) 06/22/23 06/22/23 Range/Units 16:45 19:58 POC Glucose (mg/dL) 229 H 165 H (70-110) mg/dL Microbiology - Last 24 Hours (Table) 06/17/23 08:55 Blood Culture - Final Blood
== END 2023-06-23 11:46 | disposition home health service (06) | DRG 871 ==
LOC: EC 15:06 → 3SCARD 18:52
PROVIDERS: ADMIT Internal Medicine; ATTEND Internal Medicine
DX: A40.9 Streptococcal sepsis, unspecified (principal); I50.33 Acute on chronic diastolic (congestive) heart failure; J96.21 Acute and chronic respiratory failure with hypoxia; J15.4 Pneumonia due to other streptococci; J44.0 Chronic obstructive pulmonary disease with (acute) lower respiratory infection; J44.1 Chronic obstructive pulmonary disease with (acute) exacerbation; I48.92 Unspecified atrial flutter; Q23.1 Congenital insufficiency of aortic valve; D69.6 Thrombocytopenia, unspecified; E11.41 Type 2 diabetes mellitus with diabetic mononeuropathy; I27.20 Pulmonary hypertension, unspecified; I11.0 Hypertensive heart disease with heart failure; I48.0 Paroxysmal atrial fibrillation; I77.810 Thoracic aortic ectasia; G58.9 Mononeuropathy, unspecified; E78.5 Hyperlipidemia, unspecified; I25.10 Atherosclerotic heart disease of native coronary artery without angina pectoris; G47.33 Obstructive sleep apnea (adult) (pediatric); F32.A Depression, unspecified; F41.9 Anxiety disorder, unspecified; G47.00 Insomnia, unspecified; K21.9 Gastro-esophageal reflux disease without esophagitis; M41.50 Other secondary scoliosis, site unspecified; M19.90 Unspecified osteoarthritis, unspecified site; M48.00 Spinal stenosis, site unspecified; N40.0 Benign prostatic hyperplasia without lower urinary tract symptoms; L30.9 Dermatitis, unspecified; K59.00 Constipation, unspecified; Z99.81 Dependence on supplemental oxygen; Z79.01 Long term (current) use of anticoagulants; Z79.51 Long term (current) use of inhaled steroids; Z79.84 Long term (current) use of oral hypoglycemic drugs; Z79.899 Other long term (current) drug therapy; Z86.711 Personal history of pulmonary embolism; Z87.01 Personal history of pneumonia (recurrent); Z87.891 Personal history of nicotine dependence; Z96.643 Presence of artificial hip joint, bilateral; Z88.6 Allergy status to analgesic agent; Z88.1 Allergy status to other antibiotic agents; Z88.5 Allergy status to narcotic agent; Z88.8 Allergy status to other drugs, medicaments and biological substances
CPT/HCPCS: 36415; 71045; 71046; 71250; 80048; 80053; 83036; 83605; 83735; 83880; 84145; 84439; 84443; 84484; 85025; 85027; 85610; 85730; 87040; 87077; 87186; 87449; 87636; 93005; 93306; 94640; 94760; 96361; 96365; 96366; 96367; 99291; 99292

== ENCOUNTER 2023-06-23 21:02 | Inpatient (IN) | payer MEDICARE ==
[2023-06-23 21:18] LABS: Glucose,Whole Blood 227 mg/dL (70-110)
--- NOTE | 2023-06-23 21:26 | ED ---
SOB HPI - General Chief Complaint: Shortness of Breath Stated Complaint: Weakness Time Seen by Provider: 06/23/23 21:19 Source: patient, EMS, RN notes reviewed, old records reviewed Limitations: no limitations - History of Present Illness Initial Comments: This is a 68-year-old male to the emergency department today. This patient presents today for evaluation of severe weakness. He was just discharged, patient was just discharged from the hospital secondary to multiple complaints but recent admission for pneumonia heart issues A. fib with RVR, patient has severe debility was unable to get into his house to continue to weakness in his heart rate was significantly high, on arrival in emergency for patient is a fibrillation with RVR severe shortness of breath with persistent weakness today. MD Complaint: shortness of breath, cough, anxiety -: hour(s) Severity: severe Severity scale (1-10): 10 Consistency: constant Improves With: nothing Worsens With: nothing Known History Of: COPD, congestive heart failure, recurrent pneumonia Context: recent URI, recent illness Associated Symptoms: chest pain, cough, sputum production Treatments Prior to Arrival: oxygen - Related Data Home Medications Medication Instructions Recorded Confirmed Montelukast Sodium [Singulair] 10 mg PO HS 01/29/18 06/23/23 Furosemide [Lasix] 20 mg PO BID 07/11/18 06/23/23 Potassium Chloride [K-Tab ER] 20 meq PO BID 07/11/18 06/23/23 Betamethasone Dipropionate 1 applic TOPICAL BID PRN 09/02/18 06/23/23 [Betamethasone Dipropionate 0.05% Cream] Fluticasone Nasal Saxe [Flonase 2 spr EA NOSTRIL HS 06/28/19 06/23/23 Nasal Saxe] Ipratropium-Albuterol Nebulize 3 ml INHALATION RT-QID PRN 06/28/19 06/23/23 [Duoneb 0.5 mg-3 mg/3 ml Soln] Ipratropium Dell 0.06%Nasal 2 spray EA NOSTRIL DAILY 06/30/19 06/23/23 [Atrovent Nasal 0.06%] Albuterol Sulfate [Ventolin HFA] 2 puff INHALATION RT-QID PRN 05/21/21 06/23/23 Betamethasone Dipropionate 1 applic TOPICAL DAILY PRN 05/21/21 06/23/23 [Betamethasone Diprop Augm Gel 0.05%] Diclofenac Sodium Gel [Voltaren 1% 1 applic TOPICAL QID PRN 05/21/21 06/23/23 Gel] Ketoconazole 2% Shampoo [Nizoral] 1 applic TOPICAL DAILY PRN 05/21/21 06/23/23 metFORMIN HCL [Glucophage] 1,000 mg PO BID 05/21/21 06/23/23 Budesonide [Pulmicort] 0.5 mg INHALATION RT-BID PRN 01/01/23 06/23/23 Fluticasone/Umeclidin/Vilanter 1 puff INHALATION RT-DAILY 01/01/23 06/23/23 [Trelegy Ellipta 200-62.5-25] Formoterol Fumarate [Perforomist] 20 mcg INHALATION RT-BID PRN 01/01/23 06/23/23 Pravastatin Sodium [Pravachol] 40 mg PO HS 01/01/23 06/23/23 Sertraline [Zoloft] 100 mg PO DAILY 01/01/23 06/23/23 Apixaban [Eliquis] 2.5 mg PO BID 06/15/23 06/23/23 Previous Rx's Medication Instructions Recorded Ferrous Sulfate [Feosol] 325 mg PO DAILY #30 tab 01/07/23 Pantoprazole [Protonix] 40 mg PO AC-BRKFST #30 tab 01/07/23 Digoxin [Lanoxin] 125 mcg PO DAILY #30 tab 06/23/23 Diltiazem Cd [Cardizem CD] 240 mg PO DAILY #30 cap 06/23/23 cefUROXime axetiL [Ceftin] 500 mg PO BID 4 Days #8 tab 06/23/23 Docusate [Colace] 100 mg PO DAILY PRN cap 06/26/23 HYDROcodone/APAP 5-325MG [[place] 1 tab PO BID PRN #6 tab 06/26/23 5-325] Pregabalin [Lyrica] 300 mg PO BID #6 cap 06/26/23 predniSONE 50 mg PO DAILY #5 tab 06/26/23 traMADol HCL 100 mg PO Q6H PRN #12 tab 06/26/23 Allergies Allergy/AdvReac Type Severity Reaction Status Date / Time gemfibrozil [From Lopid] Allergy Unknown Verified 06/23/23 21:09 aspirin AdvReac Abdominal Verified 06/23/23 21:09 Pain ceftriaxone [From Rocephin] AdvReac Diarrhea Verified 06/23/23 21:09 fentanyl AdvReac Hallucinati Verified 06/23/23 21:09 ons gabapentin AdvReac Hallucinati Verified 06/24/23 21:18 ons moxifloxacin [From Avelox] AdvReac Unknown Verified 06/23/23 21:09 Review of Systems ROS Statement: Those systems with pertinent positive or pertinent negative responses have been documented in the HPI. ROS Other: All systems not noted in ROS Statement are negative. Past Medical History Past Medical History: No Reported History, Atrial Fibrillation, Atrial Flutter, Asthma, Heart Failure, COPD, Diabetes Mellitus, GERD/Reflux, Hyperlipidemia, Hypertension, Osteoarthritis (OA), Pneumonia, Prostate Disorder, Pulmonary Embolus (PE), Skin Disorder, Sleep Apnea/CPAP/BIPAP Additional Past Medical History / Comment(s): CPAP use. Neuropathy bilateral feet, dermatitis, enlarged prostate, PE found in 07/2003 while hospitalized for pneumonia, spinal stenosis, degenerative scoliosis, migraines, palpitations, " bleeds easily", hospitalized in August w/influenza-can't seem to "shake" cough. SOB and fatigue last few months. History of Any Multi-Drug Resistant Organisms: None Reported Past Surgical History: Bowel Resection, Heart Catheterization, Hernia Repair, Joint Replacement, Orthopedic Surgery, Tonsillectomy Additional Past Surgical History / Comment(s): Bilateral hip replacements, bilateral cataracts removed, hiatal hernia repair, incisional hernia repair with mesh-had bowel complication that resulted in a bowel resection, bronchoscopies, colonoscopy, ulna nerve right elbow surgery, cardioversion, ARNOL. Past Anesthesia/Blood Transfusion Reactions: Previous Problems w/ Anesthesia, Family History of Problems w/ Anesthesia Additional Past Anesthesia/Blood Transfusion Reaction / Comment(s): Problem with being "twilighted" - becomes very combative. Slow to wake up. Uncle has same symptoms with "twilight". Past Psychological History: Depression Smoking Status: Former smoker - Past Family History Father Family Medical History: Cancer Additional Family Medical History / Comment(s): Prostrate cancer. Mother Family Medical History: Cancer Additional Family Medical History / Comment(s): Skin cancer. Brother(s) Family Medical History: Cancer Additional Family Medical History / Comment(s): Brother of lung cancer. General Exam General appearance: alert, in no apparent distress, anxious, in distress Head exam: Present: atraumatic, normocephalic, normal inspection Eye exam: Present: normal appearance, PERRL, EOMI. Absent: scleral icterus, conjunctival injection, periorbital swelling ENT exam: Present: normal exam, mucous membranes moist Neck exam: Present: normal inspection. Absent: tenderness, meningismus, lymphadenopathy Respiratory exam: Present: normal lung sounds bilaterally. Absent: respiratory distress, wheezes, rales, rhonchi, stridor Cardiovascular Exam: Present: tachycardia, irregular rhythm, normal heart sounds. Absent: systolic murmur, diastolic murmur, rubs, gallop, clicks GI/Abdominal exam: Present: soft, normal bowel sounds. Absent: distended, tenderness, guarding, rebound, rigid Extremities exam: Present: normal inspection, full ROM, normal capillary refill. Absent: tenderness, pedal edema, joint swelling, calf tenderness Back exam: Present: normal inspection Neurological exam: Present: alert, oriented X3, CN II-XII intact Psychiatric exam: Present: normal affect, normal mood Skin exam: Present: warm, dry, intact, normal color. Absent: rash Course Vital Signs 06/23/23 06/23/23 06/23/23 21:05 21:11 21:53 Temperature 98.0 F Pulse Rate 140 H 123 H 105 H Pulse Rate [ Fare Enforcement Officer ] Respiratory 18 19 24 Rate Blood Pressure 80/67 91/59 93/70 Blood Pressure [Right Arm] O2 Sat by Pulse 91 L 91 L 93 L Oximetry 06/23/23 06/23/23 06/23/23 21:57 22:08 22:29 Temperature Pulse Rate 104 H 106 H 80 Pulse Rate [ 130 H Fare Enforcement Officer ] Respiratory 22 Rate Blood Pressure 92/66 Blood Pressure [Right Arm] O2 Sat by Pulse 96 Oximetry 06/23/23 06/23/23 06/23/23 23:18 23:48 23:58 Temperature Pulse Rate 90 108 H 105 H Pulse Rate [ Fare Enforcement Officer ] Respiratory 24 Rate Blood Pressure 111/79 Blood Pressure [Right Arm] O2 Sat by Pulse 93 L Oximetry 06/24/23 06/24/23 06/24/23 01:59 02:30 05:00 Temperature Pulse Rate 97 89 78 Pulse Rate [ Fare Enforcement Officer ] Respiratory 16 13 14 Rate Blood Pressure 110/92 127/90 128/95 Blood Pressure [Right Arm] O2 Sat by Pulse 93 L 94 L 87 L Oximetry 06/24/23 06/24/23 06/24/23 05:10 06:32 07:37 Temperature 97.7 F Pulse Rate 72 76 Pulse Rate [ Fare Enforcement Officer ] Respiratory 12 Rate Blood Pressure 123/90 Blood Pressure [Right Arm] O2 Sat by Pulse 90 L 91 L 93 L Oximetry 06/24/23 06/24/23 06/24/23 07:46 07:52 08:24 Temperature Pulse Rate 76 78 98 Pulse Rate [ Fare Enforcement Officer ] Respiratory 16 20 Rate Blood Pressure 123/90 135/89 Blood Pressure [Right Arm] O2 Sat by Pulse 92 L 91 L Oximetry 06/24/23 06/24/23 06/24/23 10:02 11:47 11:56 Temperature Pulse Rate 72 89 79 Pulse Rate [ Fare Enforcement Officer ] Respiratory 18 Rate Blood Pressure 121/85 Blood Pressure [Right Arm] O2 Sat by Pulse 90 L Oximetry 06/24/23 06/24/23 06/24/23 13:57 16:02 16:27 Temperature 98.6 F Pulse Rate 81 71 Pulse Rate [ 81 Fare Enforcement Officer ] Respiratory 20 Rate Blood Pressure Blood Pressure 103/67 [Right Arm] O2 Sat by Pulse 95 Oximetry 06/24/23 06/24/23 06/24/23 16:38 19:42 19:56 Temperature 97.3 F L Pulse Rate 70 72 Pulse Rate [ 73 Fare Enforcement Officer ] Respiratory 16 Rate Blood Pressure Blood Pressure 108/62 [Right Arm] O2 Sat by Pulse 97 Oximetry 06/24/23 06/25/23 06/25/23 20:00 02:28 07:05 Temperature 97.6 F 97.8 F Pulse Rate 68 58 L 70 Pulse Rate [ Fare Enforcement Officer ] Respiratory 17 18 17 Rate Blood Pressure 92/58 110/67 119/88 Blood Pressure [Right Arm] O2 Sat by Pulse 95 93 L 94 L Oximetry 06/25/23 06/25/23 06/25/23 07:44 09:17 09:27 Temperature 97.0 F L Pulse Rate 96 96 Pulse Rate [ 69 Fare Enforcement Officer ] Respiratory 20 Rate Blood Pressure Blood Pressure 116/86 [Right Arm] O2 Sat by Pulse 94 L Oximetry 06/25/23 06/25/23 06/25/23 12:00 12:05 12:22 Temperature 97.4 F L 97.0 F L Pulse Rate 85 96 Pulse Rate [ 81 Fare Enforcement Officer ] Respiratory 16 18 Rate Blood Pressure 104/76 Blood Pressure 104/86 [Right Arm] O2 Sat by Pulse 96 93 L Oximetry 06/25/23 06/25/23 06/25/23 12:30 15:40 15:48 Temperature Pulse Rate 95 91 91 Pulse Rate [ Fare Enforcement Officer ] Respiratory Rate Blood Pressure Blood Pressure [Right Arm] O2 Sat by Pulse Oximetry 06/25/23 16:00 Temperature 98.0 F Pulse Rate Pulse Rate [ 69 Fare Enforcement Officer ] Respiratory 17 Rate Blood Pressure Blood Pressure 124/71 [Right Arm] O2 Sat by Pulse 93 L Oximetry - Reevaluation(s) Reevaluation #1: 06/23/23 23:16 Medical record is reviewed Reevaluation #2: 06/23/23 23:17 Patient symptoms are unchanged Reevaluation #3: 06/23/23 23:17 Patient informed results and questions answered Reevaluation #4: 06/23/23 22:12 Was pt. sent in by a medical professional or institution (, PA, RUBBER CURER, urgent care, hospital, or fci...) When possible be specific @ -no Did you speak to anyone other than the patient for history (EMS, parent, family, police, friend...)? What history was obtained from this source @ -no Did you review nursing and triage notes (agree or disagree)? Why? @ -agree Are old charts reviewed (outside hosp., previous admission, EMS record, old EKG, old radiological studies, urgent care reports/EKG's, fci records)? Report findings @ -yes Differential Diagnosis (chest pain, altered mental status, abdominal pain women, abdominal pain men, vaginal bleeding, weakness, fever, dyspnea, syncope, headache, dizziness, GI bleed, back pain, seizure, CVA, palpatations, mental health, musculoskeletal)? @ -prior EKG interpreted by me (3pts min.). @ -yes X-rays interpreted by me (1pt min.). @ -yes positive for pneumonia CT interpreted by me (1pt min.). @ -no U/S interpreted by me (1pt. min.). @ -no What testing was considered but not performed or refused? (CT, X-rays, U/S, labs)? Why? @ -none What meds were considered but not given or refused? Why? @ -none Did you discuss the management of the patient with other professionals (professionals i.e. , PA, RUBBER CURER, lab, RT, psych nurse, social media coordinator, global implementation manager, teacher, geographic area intelligence officer, piano case maker)? Give summary @ -no Was smoking cessation discussed for >3mins.? @ -no Was critical care preformed (if so, how long)? @ -no Were there social determinants of health that impacted care today? How? (Homelessness, low income, unemployed, alcoholism, drug addiction, trans portation, low edu. Level, literacy, decrease access to med. care, snf, rehab)? @ -none Was there de-escalation of care discussed even if they declined (Discuss DNR or withdrawal of care, Hospice)? DNR status @ -no What co-morbidities impacted this encounter? (DM, HTN, Smoking, COPD, CAD, Cancer, CVA, ARF, Chemo, Hep., AIDS, mental health diagnosis, sleep apnea, morbid obesity)? @ -none Was patient admitted / discharged? Hospital course, mention meds given and route, prescriptions, significant lab abnormalities, going to OR and other pertinent info. @ - 68 male the emergency department for evaluation, patient is in nature for ablation with RVR persistent pneumonia here in the ER will be admitted for IV antibiotics with increasing white blood cell count and underlying COPD Admitted Undiagnosed new problem with uncertain prognosis? @ -no Drug Therapy requiring intensive monitoring for toxicity (Heparin, Nitro, Insulin, Cardizem)? @ -no Were any procedures done? @ -no Diagnosis/symptom? @ - COPD, pneumonia Acute, or Chronic, or Acute on Chronic? @ -Acute Uncomplicated (without systemic symptoms) or Complicated (systemic symptoms)? @ -Complicated Side effects of treatment? @ -no Exacerbation, Progression, or Severe Exacerbation? @ -exacerbation Poses a threat to life or bodily function? How? (Chest pain, [place], [place], pneumonia, PE, COPD, DKA, ARF, appy, cholecystitis, CVA, Diverticulitis, Homicidal, Suicidal, threat to staff... and all critical care pts) @ -yes extremes of age with pneumonia Reevaluation #5: 06/23/23 23:17 Differential Dyspnea: Coronary syndrome, arrhythmia, tamponade, asthma, COPD, pulmonary embolism, pneumonia, pneumothorax, pulmonary effusion, anaphylaxis, diabetic ketoacidosis, flailed chest, pulmonary contusion, diaphragmatic rupture, anemia, neuromuscular, this is not meant to be an all-inclusive list. Differential Palpitations Ventricular arrhythmias, atrial arrhythmias, myocardial infarction, anemia, thyrotoxicosis, electrolyte imbalance, hypokalemia, pulmonary embolism, pulmonary disease, drugs, alcohol, anxiety, stress.... This is not meant to be an all-inclusive list. - Consultations Consultation #1: spoke w sound physicians agreeable admit this patient Medical Decision Making - Medical Decision Making 68 male the emergency department for evaluation, patient is in nature for ablation with RVR persistent pneumonia here in the ER will be admitted for IV antibiotics with increasing white blood cell count and underlying COPD - Lab Data Result diagrams: 06/26/23 09:39 06/26/23 09:38 Lab Results 06/23/23 06/23/23 06/23/23 Range/Units 21:10 21:10 21:10 WBC 18.1 H (3.8-10.6) k/uL RBC 4.50 (4.30-5.90) m/uL Hgb 13.7 (13.0-17.5) gm/dL Hct 41.9 (39.0-53.0) % MCV 93.0 (80.0-100.0) fL MCH 30.4 (25.0-35.0) pg MCHC 32.6 (31.0-37.0) g/dL RDW 16.2 H (11.5-15.5) % Plt Count 294 (150-450) k/uL MPV 8.6 Neutrophils % 95 % Lymphocytes % 2 % Monocytes % 3 % Eosinophils % 0 % Basophils % 0 % Neutrophils # 17.2 H (1.3-7.7) k/uL Lymphocytes # 0.3 L (1.0-4.8) k/uL Monocytes # 0.5 (0-1.0) k/uL Eosinophils # 0.0 (0-0.7) k/uL Basophils # 0.0 (0-0.2) k/uL Anisocytosis Slight PT 10.5 (10.0-12.5) sec INR 0.9 (<1.2) APTT 21.0 L (22.0-30.0) sec Sodium 136 L (137-145) mmol/L Potassium 4.1 (3.5-5.1) mmol/L Chloride 101 (98-107) mmol/L Carbon Dioxide 26 (22-30) mmol/L Anion Gap 9 mmol/L BUN 41 H (9-20) mg/dL Creatinine 0.64 L (0.66-1.25) mg/dL Est GFR (CKD-EPI)AfAm >90 (>60 ml/min/1.73 sqM) Est GFR (CKD-EPI)NonAf >90 (>60 ml/min/1.73 sqM) Glucose 241 H (74-99) mg/dL POC Glucose (mg/dL) (70-110) mg/dL POC Glu Crossword Puzzle Maker ID Lactic Ac Sepsis Rflx Plasma Lactic Acid Gabriel (0.7-2.0) mmol/L Calcium 8.1 L (8.4-10.2) mg/dL Magnesium 2.3 (1.6-2.3) mg/dL Total Bilirubin 0.3 (0.2-1.3) mg/dL AST 54 (17-59) U/L ALT 63 H (4-49) U/L Alkaline Phosphatase 170 H (38-126) U/L Troponin I (0.000-0.034) ng/mL NT-Pro-B Natriuret Pep 1770 pg/mL Total Protein 4.4 L (6.3-8.2) g/dL Albumin 2.5 L (3.5-5.0) g/dL Urine Color Urine Appearance (Clear) Urine pH (5.0-8.0) Ur Specific [place] (1.001-1.035) Urine Protein (Negative) Urine Glucose (UA) (Negative) Urine Ketones (Negative) Urine Blood (Negative) Urine Nitrite (Negative) Urine Bilirubin (Negative) Urine Urobilinogen (<2.0) mg/dL Ur Leukocyte Esterase (Negative) Urine Legionella Ag (Negative) 06/23/23 06/23/23 06/23/23 Range/Units 21:10 21:10 21:17 WBC (3.8-10.6) k/uL RBC (4.30-5.90) m/uL Hgb (13.0-17.5) gm/dL Hct (39.0-53.0) % MCV (80.0-100.0) fL MCH (25.0-35.0) pg MCHC (31.0-37.0) g/dL RDW (11.5-15.5) % Plt Count (150-450) k/uL MPV Neutrophils % % Lymphocytes % % Monocytes % % Eosinophils % % Basophils % % Neutrophils # (1.3-7.7) k/uL Lymphocytes # (1.0-4.8) k/uL Monocytes # (0-1.0) k/uL Eosinophils # (0-0.7) k/uL Basophils # (0-0.2) k/uL Anisocytosis PT (10.0-12.5) sec INR (<1.2) APTT (22.0-30.0) sec Sodium (137-145) mmol/L Potassium (3.5-5.1) mmol/L Chloride (98-107) mmol/L Carbon Dioxide (22-30) mmol/L Anion Gap mmol/L BUN (9-20) mg/dL Creatinine (0.66-1.25) mg/dL Est GFR (CKD-EPI)AfAm (>60 ml/min/1.73 sqM) Est GFR (CKD-EPI)NonAf (>60 ml/min/1.73 sqM) Glucose (74-99) mg/dL POC Glucose (mg/dL) 227 H (70-110) mg/dL POC Glu Crossword Puzzle Maker ID Yoni Jaeger Lactic Ac Sepsis Rflx Plasma Lactic Acid Gabriel 4.0 H* (0.7-2.0) mmol/L Calcium (8.4-10.2) mg/dL Magnesium (1.6-2.3) mg/dL Total Bilirubin (0.2-1.3) mg/dL AST (17-59) U/L ALT (4-49) U/L Alkaline Phosphatase (38-126) U/L Troponin I 0.018 (0.000-0.034) ng/mL NT-Pro-B Natriuret Pep pg/mL Total Protein (6.3-8.2) g/dL Albumin (3.5-5.0) g/dL Urine Color Urine Appearance (Clear) Urine pH (5.0-8.0) Ur Specific [place] (1.001-1.035) Urine Protein (Negative) Urine Glucose (UA) (Negative) Urine Ketones (Negative) Urine Blood (Negative) Urine Nitrite (Negative) Urine Bilirubin (Negative) Urine Urobilinogen (<2.0) mg/dL Ur Leukocyte Esterase (Negative) Urine Legionella Ag (Negative) 06/23/23 06/23/23 06/23/23 Range/Units 22:08 23:00 23:00 WBC (3.8-10.6) k/uL RBC (4.30-5.90) m/uL Hgb (13.0-17.5) gm/dL Hct (39.0-53.0) % MCV (80.0-100.0) fL MCH (25.0-35.0) pg MCHC (31.0-37.0) g/dL RDW (11.5-15.5) % Plt Count (150-450) k/uL MPV Neutrophils % % Lymphocytes % % Monocytes % % Eosinophils % % Basophils % % Neutrophils # (1.3-7.7) k/uL Lymphocytes # (1.0-4.8) k/uL Monocytes # (0-1.0) k/uL Eosinophils # (0-0.7) k/uL Basophils # (0-0.2) k/uL Anisocytosis PT (10.0-12.5) sec INR (<1.2) APTT (22.0-30.0) sec Sodium (137-145) mmol/L Potassium (3.5-5.1) mmol/L Chloride (98-107) mmol/L Carbon Dioxide (22-30) mmol/L Anion Gap mmol/L BUN (9-20) mg/dL Creatinine (0.66-1.25) mg/dL Est GFR (CKD-EPI)AfAm (>60 ml/min/1.73 sqM) Est GFR (CKD-EPI)NonAf (>60 ml/min/1.73 sqM) Glucose (74-99) mg/dL POC Glucose (mg/dL) (70-110) mg/dL POC Glu Crossword Puzzle Maker ID Lactic Ac Sepsis Rflx Y Plasma Lactic Acid Gabriel (0.7-2.0) mmol/L Calcium (8.4-10.2) mg/dL Magnesium (1.6-2.3) mg/dL Total Bilirubin (0.2-1.3) mg/dL AST (17-59) U/L ALT (4-49) U/L Alkaline Phosphatase (38-126) U/L Troponin I (0.000-0.034) ng/mL NT-Pro-B Natriuret Pep pg/mL Total Protein (6.3-8.2) g/dL Albumin (3.5-5.0) g/dL Urine Color Yellow Urine Appearance Clear (Clear) Urine pH 5.5 (5.0-8.0) Ur Specific [place] 1.033 (1.001-1.035) Urine Protein Trace H (Negative) Urine Glucose (UA) 2+ H (Negative) Urine Ketones Negative (Negative) Urine Blood Negative (Negative) Urine Nitrite Negative (Negative) Urine Bilirubin Negative (Negative) Urine Urobilinogen <2.0 (<2.0) mg/dL Ur Leukocyte Esterase Negative (Negative) Urine Legionella Ag Negative (Negative) - EKG Data -: EKG Interpreted by Me (EKG is atrial flutter 117 QRS 104 QTC 426) - Radiology Data Radiology results: report reviewed (Chest x-rays positive for pneumonia), image reviewed Critical Care Time Critical Care Time: Yes Total Critical Care Time: 31 Disposition Clinical Impression: COPD with acute exacerbation, Atrial fibrillation with RVR, Acute respiratory distress syndrome in adult, Weakness, Debility, Acute exacerbation of chronic obstructive pulmonary disease Disposition: ADMITTED IP TO THIS HOSP Condition: Stable Time of Disposition: 23:00
[2023-06-23] MEDS ORDERED: SODIUM CHLORIDE 0.9% 1,000 ML IV STA ×2 (21:27→22:00)
[2023-06-23] MEDS ORDERED: IPRATROPIUM-ALBUTEROL 3 ML NEB INHALATION STA ×2 (21:27→23:13)
[2023-06-23] MEDS ORDERED: DILTIAZEM DRIP BOLUS FROM BAG 1 MG SOLN IV ONE (21:28)
[2023-06-23] MEDS ORDERED: DILTIAZEM 125 MG in SODIUM CHLORIDE 0.9% 100 ML IV SCH (21:30)
[2023-06-23 21:51] LABS: Anisocytosis Slight; Basophils % (A) 0 %; Eosinophils % (A) 0 %; HCT 41.9 % (39.0-53.0); HGB 13.7 gm/dL (13.0-17.5); Lymphocytes # (A) 0.3 k/uL (1.0-4.8); Lymphocytes % (A) 2 %; MCH 30.4 pg (25.0-35.0); MCHC 32.6 g/dL (31.0-37.0); Mean Platelet Volume 8.6; Monocytes # (A) 0.5 k/uL (0-1.0); Monocytes % (A) 3 %; Neutrophils # (A) 17.2 k/uL (1.3-7.7); Neutrophils % (A) 95 %; Platelet Count 294 k/uL (150-450); RDW 16.2 % (11.5-15.5); WBC 18.1 k/uL (3.8-10.6)
--- NOTE | 2023-06-23 21:52 | XR ---
EXAMINATION TYPE: XR chest 1V portable DATE OF EXAM: 06/23/2023 Comparison: 06/19/2023 Clinical History: 68-year-old male weakness, sob Findings: Heart mildly enlarged. Diffuse interstitial and patchy opacities, right greater than left remain unch anged. No pleural effusion. Impression: Similar diffuse interstitial and patchy infiltrates, right greater than left.
[2023-06-23 22:08] LABS: ALT 63 U/L (4-49); AST 54 U/L (17-59); African American GFR (CKD) >90 (>60 ml/min/1.73 sqM); Albumin 2.5 g/dL (3.5-5.0); Alkaline Phosphatase 170 U/L (38-126); Anion Gap 9 mmol/L; Blood Urea Nitrogen 41 mg/dL (9-20); Calcium 8.1 mg/dL (8.4-10.2); Carbon Dioxide 26 mmol/L (22-30); Chloride 101 mmol/L (98-107); Glucose 241 mg/dL (74-99); Magnesium 2.3 mg/dL (1.6-2.3); Non-African American GFR(CKD) >90 (>60 ml/min/1.73 sqM); Potassium 4.1 mmol/L (3.5-5.1); Sodium 136 mmol/L (137-145); Total Bilirubin 0.3 mg/dL (0.2-1.3); Total Protein 4.4 g/dL (6.3-8.2)
[2023-06-23 22:14] LABS: NT-Pro-B-Type Natriuretic Pept 1770 pg/mL
[2023-06-23 22:19] LABS: INR 0.9 (<1.2); Prothrombin Time 10.5 sec (10.0-12.5)
[2023-06-23] MEDS ORDERED: methylPREDNISolone SOD SUCCI 125 MG/2 ML VIAL IV STA (22:28)
[2023-06-23] MEDS ORDERED: AZITHROMYCIN 500 MG in SODIUM CHLORIDE 0.9% 250 ML IVPB STA (23:13)
[2023-06-23] MEDS ORDERED: PNEUMONIA PROTOCOL UTILIZED 1 EACH MISC PO PRN (23:13)
[2023-06-23] MEDS ORDERED: PIPERACILLIN-TAZOBACTAM 3.375 GM in SODIUM CHLORIDE 0.9% 100 ML IVPB STA (23:13)
[2023-06-23 23:22] LABS: Appearance,Urine Clear (Clear); Bilirubin,Urine Negative (Negative); Blood,Urine Negative (Negative); Color,Urine Yellow; Glucose,Urine (UA) 2+ (Negative); Ketones,Urine Negative (Negative); Leukocyte Esterase,Urine Negative (Negative); Nitrite,Urine Negative (Negative); PH, Urine 5.5 (5.0-8.0); Protein,Urine Trace (Negative); Specific Gravity,Urine 1.033 (1.001-1.035); Urobilinogen,Urine <2.0 mg/dL (<2.0)
[2023-06-24] MEDS ORDERED: ALPRAZolam 0.5 MG TAB PO STA (00:10)
[2023-06-24] MEDS ORDERED: DEXTROSE 50% SYRINGE 50 ML IVP PRN ×2 (02:46)
[2023-06-24] MEDS ORDERED: IPRATROPIUM-ALBUTEROL 3 ML NEB INHALATION PRN (02:47)
--- NOTE | 2023-06-24 03:21 | P.HPIM ---
History of Present Illness H&P Date: 06/23/23 Chief Complaint: Generalized weakness shortness of breath 68-year-old male with A. fib on Eliquis, diastolic CHF, diabetes mellitus Patient was just discharged today to home after being treated for sepsis secondary to pneumonia and bacteremia cultures were positive for strep pansensitive patient was discharged on Ceftin and a tapering dose of steroids, as A. fib medications were adjusted prior to discharge with increasing dose of Cardizem and adding digoxin. However patient reports upon going home he was feeling very tired and debilitated he was unable to walk or get up from a laying down or sitting position due to extreme weakness he started feeling short of breath and palpitations with heart racing again for which she decided to come into the hospital for evaluation Upon arrival he was found to be in A. fib with RVR he was restarted on Cardizem drip and admitted for further care Patient is showing interest in the rehab if he qualifies as he feels signific antly weaker compared to prior to hospitalization, he also reports progressive generalized weakness over the past 6 months. Currently denies any falls today or head injury. He denies any tobacco smoking illicit drugs or alcohol review of systems Pertinent positives as noted in HPI. All other systems were reviewed and are negative on exam Constitutional: No acute distress, conversant, pleasant Eyes: Anicteric sclerae, moist conjunctiva, Pupils equal round reactive to light ENMT: NC/AT Oropharynx clear, no erythema, or exudates Neck: Supple, no masses, or JVD No carotid bruits No thyromegaly Lungs: Clear to auscultation Clear to percussion Normal respiratory effort, no accessory muscle use Cardiovascular: Heart irregular No murmurs, gallops, or rubs No peripheral edema Abdominal: Soft Nontender, no guarding, rebound or rigidity Abdomen moving with respiration Normoactive bowel sounds No hepatomegaly, No splenomegaly No palpable mass Positive abdominal wall hernia noted Extremities: No digital cyanosis No clubbing Pedal pulses intact and symmetrical Radial pulses intact and symmetrical No calf tenderness Psychiatric: Alert and oriented to person, place and time Appropriate affect fair judgement Neuro Muscles Strength 4/5 in all 4 extremities Sensation to light touch grossly present throughout Cranial nerves II-XII grossly intact Lymphatics: no palpable cervical or supraclavicular lymph nodes Past Medical History Past Medical History: No Reported History, Atrial Fibrillation, Atrial Flutter, Asthma, Heart Failure, COPD, Diabetes Mellitus, GERD/Reflux, Hyperlipidemia, Hypertension, Osteoarthritis (OA), Pneumonia, Prostate Disorder, Pulmonary Embolus (PE), Skin Disorder, Sleep Apnea/CPAP/BIPAP Additional Past Medical History / Comment(s): CPAP use. Neuropathy bilateral feet, dermatitis, enlarged prostate, PE found in 07/2003 while hospitalized for pneumonia, spinal stenosis, degenerative scoliosis, migraines, palpitations, "bleeds easily", hospitalized in August w/influenza-can't seem to "shake" cough. SOB and fatigue last few months. History of Any Multi-Drug Resistant Organisms: None Reported Past Surgical History: Bowel Resection, Heart Catheterization, Hernia Repair, Joint Replacement, Orthopedic Surgery, Tonsillectomy Additional Past Surgical History / Comment(s): Bilateral hip replacements, bilateral cataracts removed, hiatal hernia repair, incisional hernia repair with mesh-had bowel complication that resulted in a bowel resection, bronchoscopies, colonoscopy, ulna nerve right elbow surgery, cardioversion, ARNOL. Past Anesthesia/Blood Transfusion Reactions: Previous Problems w/ Anesthesia, Family History of Problems w/ Anesthesia Additional Past Anesthesia/Blood Transfusion Reaction / Comment(s): Problem with being "twilighted" - becomes very combative. Slow to wake up. Uncle has same symptoms with "twilight". Past Psychological History: Depression Smoking Status: Former smoker - Past Family History Father Family Medical History: Cancer Additional Family Medical History / Comment(s): Prostrate cancer. Mother Family Medical History: Cancer Additional Family Medical History / Comment(s): Skin cancer. Brother(s) Family Medical History: Cancer Additional Family Medical History / Comment(s): Brother of lung cancer. Medications and Allergies Home Medications Medication Instructions Recorded Confirmed Type Pregabalin [Lyrica] 300 mg PO BID 08/18/17 06/23/23 History Montelukast Sodium [Singulair] 10 mg PO HS 01/29/18 06/23/23 History Furosemide [Lasix] 20 mg PO BID 07/11/18 06/23/23 History Potassium Chloride [K-Tab ER] 20 meq PO BID 07/11/18 06/23/23 History Betamethasone Dipropionate 1 applic TOPICAL BID PRN 09/02/18 06/23/23 History [Betamethasone Dipropionate 0.05% Cream] Fluticasone Nasal [place] [Flonase 2 spr EA NOSTRIL HS 06/28/19 06/23/23 History Nasal [place]] Ipratropium-Albuterol Nebulize 3 ml INHALATION RT-QID PRN 06/28/19 06/23/23 History [Duoneb 0.5 mg-3 mg/3 ml Soln] Ipratropium [place] 0.06%Nasal 2 spray EA NOSTRIL DAILY 06/30/19 06/23/23 History [Atrovent Nasal 0.06%] Albuterol Sulfate [Ventolin HFA] 2 puff INHALATION RT-QID PRN 05/21/21 06/23/23 History Betamethasone Dipropionate 1 applic TOPICAL DAILY PRN 05/21/21 06/23/23 History [Betamethasone Diprop Augm Gel 0.05%] Diclofenac Sodium Gel [Voltaren 1% 1 applic TOPICAL QID PRN 05/21/21 06/23/23 History Gel] Ketoconazole 2% Shampoo [Nizoral] 1 applic TOPICAL DAILY PRN 05/21/21 06/23/23 History metFORMIN HCL [Glucophage] 1,000 mg PO BID 05/21/21 06/23/23 History Budesonide [Pulmicort] 0.5 mg INHALATION RT-BID PRN 01/01/23 06/23/23 History Fluticasone/Umeclidin/Vilanter 1 puff INHALATION RT-DAILY 01/01/23 06/23/23 History [Trelegy Ellipta 200-62.5-25] Formoterol Fumarate [Perforomist] 20 mcg INHALATION RT-BID PRN 01/01/23 06/23/23 History Pravastatin Sodium [Pravachol] 40 mg PO HS 01/01/23 06/23/23 History Sertraline [Zoloft] 100 mg PO DAILY 01/01/23 06/23/23 History traMADol HCL 100 mg PO Q6H PRN 01/01/23 06/23/23 History Ferrous Sulfate [Feosol] 325 mg PO DAILY #30 tab 01/07/23 06/23/23 Rx Pantoprazole [Protonix] 40 mg PO AC-BRKFST #30 tab 01/07/23 06/23/23 Rx Apixaban [Eliquis] 2.5 mg PO BID 06/15/23 06/23/23 History Collagenase [Santyl Ointment] 1 applic TOPICAL DAILY PRN 06/15/23 06/23/23 History HYDROcodone/APAP 5-325MG [[place] 1 tab PO BID PRN 06/15/23 06/23/23 History 5-325] Digoxin [Lanoxin] 125 mcg PO DAILY #30 tab 06/23/23 06/23/23 Rx Diltiazem Cd [Cardizem CD] 240 mg PO DAILY #30 cap 06/23/23 06/23/23 Rx cefUROXime axetiL [Ceftin] 500 mg PO BID 4 Days #8 tab 06/23/23 06/23/23 Rx predniSONE [Deltasone] See Taper PO DAILY 06/23/23 06/23/23 History Allergies Allergy/AdvReac Type Severity Reaction Status Date / Time gemfibrozil [From Lopid] Allergy Unknown Verified 06/23/23 21:09 aspirin AdvReac Abdominal Verified 06/23/23 21:09 Pain ceftriaxone [From Rocephin] AdvReac Diarrhea Verified 06/23/23 21:09 fentanyl AdvReac Hallucinati Verified 06/23/23 21:09 ons moxifloxacin [From Avelox] AdvReac Unknown Verified 06/23/23 21:09 Physical Exam Vitals: Vital Signs Temp Pulse Pulse Resp BP Pulse Ox 06/23/23 23:18 90 24 111/79 93 L 06/23/23 22:29 80 22 92/66 96 06/23/23 22:08 106 H 06/23/23 21:57 104 H 130 H 06/23/23 21:53 105 H 24 93/70 93 L 06/23/23 21:11 123 H 19 91/59 91 L 06/23/23 21:05 98.0 F 140 H 18 80/67 91 L Intake and Output 06/23/23 06/23/23 06/24/23 14:59 22:59 06:59 Other: Weight 111.13 kg Results CBC & Chem 7: 06/23/23 21:10 06/23/23 21:10 Labs: Abnormal Lab Results - Last 24 Hours (Table) 06/23/23 06/23/23 06/23/23 Range/Units 21:10 21:10 21:10 WBC 18.1 H (3.8-10.6) k/uL RDW 16.2 H (11.5-15.5) % Neutrophils # 17.2 H (1.3-7.7) k/uL Lymphocytes # 0.3 L (1.0-4.8) k/uL APTT 21.0 L (22.0-30.0) sec Sodium 136 L (137-145) mmol/L BUN 41 H (9-20) mg/dL Creatinine 0.64 L (0.66-1.25) mg/dL Glucose 241 H (74-99) mg/dL POC Glucose (mg/dL) (70-110) mg/dL Plasma Lactic Acid Gabriel (0.7-2.0) mmol/L Calcium 8.1 L (8.4-10.2) mg/dL ALT 63 H (4-49) U/L Alkaline Phosphatase 170 H (38-126) U/L Total Protein 4.4 L (6.3-8.2) g/dL Albumin 2.5 L (3.5-5.0) g/dL Urine Protein (Negative) Urine Glucose (UA) (Negative) 06/23/23 06/23/23 06/23/23 Range/Units 21:10 21:17 23:00 WBC (3.8-10.6) k/uL RDW (11.5-15.5) % Neutrophils # (1.3-7.7) k/uL Lymphocytes # (1.0-4.8) k/uL APTT (22.0-30.0) sec Sodium (137-145) mmol/L BUN (9-20) mg/dL Creatinine (0.66-1.25) mg/dL Glucose (74-99) mg/dL POC Glucose (mg/dL) 227 H (70-110) mg/dL Plasma Lactic Acid Gabriel 4.0 H* (0.7-2.0) mmol/L Calcium (8.4-10.2) mg/dL ALT (4-49) U/L Alkaline Phosphatase (38-126) U/L Total Protein (6.3-8.2) g/dL Albumin (3.5-5.0) g/dL Urine Protein Trace H (Negative) Urine Glucose (UA) 2+ H (Negative) Assessment and Plan Assessment: 68-year-old male with multiple comorbidities recently admitted and treated for sepsis secondary to pneumonia and strep bacteremia he was discharged today however found himself extremely weak at home for which notified EMS and came back to the hospital I discussed the case with the ED doctor and accepted the admission for A. fib with RVR and debility with anticipated length of stay more than 2 midnights A. fib with RVR Continue with other questions Start patient on Cardizem drip transition to by mouth Cardizem once converted to sinus rhythm Resume digoxin Electrolytes unremarkable sodium 136 potassium 4.1 COPD Recent sepsis secondary to strep bacteremia and pneumonia Resume antibiotics recent cultures showed pansensitive Continue with Zosyn 3.375 grams every 8 hours IV piggyback Continue prednisone 40 mg by mouth daily Chest x-ray unchanged from prior with diffuse patchy infiltrates DuoNeb's 4 times a day when necessary Resume Symbicort twice a day Singulair daily Supplemental oxygen as needed Lactic acidosis Possible component of dehydration BUN 41 creatinine 0.6 Hold diuretics IV fluid hydration normal saline 130 mL per hour History of diastolic CHF with left ventricular ejection fraction 5055 percent Diabetes mellitus Insulin sliding scale Generalized debility Consult to physical therapy for evaluation and discharge recommendations Fall precautions DVT prophylaxis on Eliquis for A. fib Full code
[2023-06-24 04:24] LABS: Glucose,Whole Blood 212 mg/dL (70-110)
[2023-06-24] MEDS: ALBUTEROL NEBULIZED 2.5 MG/3 ML INHALATION SCH ×4 (07:36→19:40)
[2023-06-24] MEDS: SYMBICORT 80-4.5 MCG INHALER INHALATION SCH ×2 (07:36→19:41)
[2023-06-24 07:48] LABS: Glucose,Whole Blood 168 mg/dL (70-110)
[2023-06-24] MEDS ORDERED: PIPERACILLIN-TAZOBACTAM 3.375 GM in SODIUM CHLORIDE 0.9% 100 ML IVPB SCH (08:00)
[2023-06-24] MEDS: INSULIN ASPART (NovoLOG) 100 UNIT/ML VIAL SQ SCH ×4 (08:17→21:27)
[2023-06-24] MEDS: APIXABAN 2.5 MG TABLET PO SCH ×2 (08:18→21:29)
[2023-06-24] MEDS: PANTOPRAZOLE 40 MG TABLET PO SCH (08:18)
[2023-06-24] MEDS: GABAPENTIN 300 MG CAP PO SCH ×2 (08:18→21:17)
[2023-06-24] MEDS: DILTIAZEM CD 240 MG CAP.ER.24H PO SCH (08:18)
[2023-06-24] MEDS: DIGOXIN 125 MCG TAB PO SCH (08:18)
[2023-06-24] MEDS: SERTRALINE 100 MG TAB PO SCH (08:18)
[2023-06-24] MEDS ORDERED: FUROSEMIDE 10 MG/ML 4 ML VIAL IV STA (08:59)
[2023-06-24] MEDS ORDERED: BETAMETHASONE DIPROPIONATE 0.05% CREAM 15 GM TUBE TOPICAL PRN (09:00)
[2023-06-24] MEDS ORDERED: predniSONE 20 MG TAB PO SCH (09:00)
--- NOTE | 2023-06-24 09:13 | XR ---
EXAMINATION TYPE: XR chest 1V portable DATE OF EXAM: 06/24/2023 Comparison: 06/23/2023 Clinical History: 68-year-old male pneumonia Findings: Heart mildly enlarged. Diffuse interstitial and patchy opacities, right greater than left persists. Impression: Similar diffuse interstitial and patchy opacities, right greater than left.
[2023-06-24] MEDS ORDERED: ALBUTEROL HFA INHALER INHALATION PRN (12:04)
[2023-06-24] MEDS ORDERED: FORMOTEROL FUMARATE 20 MCG/2 ML NEBU INHALATION PRN (12:04)
--- NOTE | 2023-06-24 12:11 | P.PN ---
Subjective Progress Note Date: 06/24/23 Pt c/o ongong gneralized weakness, chills. He did feel stable for discharge on 06/23, but upon returning home he reported that he was unable to take care of himself, and thought it'd be best to return to the ER for ongoing care. CXR still appears to have significant findings of multifocal pneumonia. Gen: awake, alert HEENT: normocephalic, atraumatic, good hearing acuity, moist mucous membranes Resp: good air exchange, breathing comfortably with no accessory muscle use CVS: good distal perfusion x 4, GI: soft, NTTP, ND : no SPT, no CVAT, melo catheter not present MSK: no pitting edema, no clubbing Neuro: non-focal, moving all extremities Psych: cooperative, euthymic mood Hospital course: Patient is a 68 yo male with a know A fib anticoagulated with eliquis, COPD on home O2 as needed, DM2, GERD, HTN, HLD, and multiple toehr comorbid conditions who presented to the ED with complaints of shortness of breath and fevers and was discharge on 06/23 after treatment for multifocal pneumonia, strep bacteremia, and AFib with RVR returned to the ER yesterday for ongoing generalized weakness and chills. In the ER, patient was afebrile, 80/67, HR 140, 91% on 2L NC. CBC demonstrated leukocytosis to 18.1. BMP was unremarkable. BNP was 1770. Lactate was 4.0, then trended to 4.4. Assessment/Plan: Sepsis secondary to Community acquired multifocal pneumonia, likely strep Strep Bacteremia COPD with Chronic hypoxic respiratory failure, uses as needed oxygen at home - ID, pulmonology consult - Continue ceftriaxone 2gm q24h (day 11/25) - Douneb 4 times daily as needed, and Symbicort 2 puffs twice daily - solumedrol 60mg q6h - Continue Singular - Wean O2 as able-- patient has O2 at home - Mucinex 1200 mg PO BID - [place] to BID prn Generalized Weakness Constipation -Colace 100 mg twice daily -PT/OT consult, anticipate d/c to SNF Paroxysmal Atrial fibrillation with rapid ventricular response, Bicuspid aortic valve with moderate Dilated aortic root Hypertension Dyslipidemia Diastolic Congestive heart failure with mild exacerbation, EF of 50-55% - Cardiology consult - Cardizem to 240 mg daily and digoxin 125mcg - Lasix 20 mg PO BID - Continue with Eliquis 2.5 mg twice daily Diabetes mellitus type 2 -Hold metformin -Sliding-scale insulin -A1c 5.8 Chronic: See arthritis Prior pulmonary embolism Obstructive sleep apnea Neuropathy Spinal stenosis DVT prophylaxis: Eliquis Anticipated discharge date: TBD Anticipated discharge place: [facility] This dictation was prepared using [employer] voice recognition software. Though every attempt is made to correct errors during dictation some may still exist. Objective - Vital Signs Vital signs: Vital Signs Temp 97.7 F 06/24/23 06:32 Pulse 79 06/24/23 11:56 Resp 18 06/24/23 10:02 BP 121/85 06/24/23 10:02 Pulse Ox 90 L 06/24/23 10:02 FiO2 Intake & Output 06/23/23 06/24/23 06/24/23 18:59 06:59 18:59 Intake Total 5 Balance 5 Weight 111.13 kg Intake: IV 5 Invasive Line 1 5 - Labs CBC & Chem 7: 06/23/23 21:10 06/23/23 21:10 Labs: Abnormal Lab Results - Last 24 Hours (Table) 06/23/23 06/23/23 06/23/23 Range/Units 21:10 21:10 21:10 WBC 18.1 H (3.8-10.6) k/uL RDW 16.2 H (11.5-15.5) % Neutrophils # 17.2 H (1.3-7.7) k/uL Lymphocytes # 0.3 L (1.0-4.8) k/uL APTT 21.0 L (22.0-30.0) sec Sodium 136 L (137-145) mmol/L BUN 41 H (9-20) mg/dL Creatinine 0.64 L (0.66-1.25) mg/dL Glucose 241 H (74-99) mg/dL POC Glucose (mg/dL) (70-110) mg/dL Plasma Lactic Acid Gabriel (0.7-2.0) mmol/L Calcium 8.1 L (8.4-10.2) mg/dL ALT 63 H (4-49) U/L Alkaline Phosphatase 170 H (38-126) U/L Total Protein 4.4 L (6.3-8.2) g/dL Albumin 2.5 L (3.5-5.0) g/dL Urine Protein (Negative) Urine Glucose (UA) (Negative) 06/23/23 06/23/23 06/23/23 Range/Units 21:10 21:17 23:00 WBC (3.8-10.6) k/uL RDW (11.5-15.5) % Neutrophils # (1.3-7.7) k/uL Lymphocytes # (1.0-4.8) k/uL APTT (22.0-30.0) sec Sodium (137-145) mmol/L BUN (9-20) mg/dL Creatinine (0.66-1.25) mg/dL Glucose (74-99) mg/dL POC Glucose (mg/dL) 227 H (70-110) mg/dL Plasma Lactic Acid Gabriel 4.0 H* (0.7-2.0) mmol/L Calcium (8.4-10.2) mg/dL ALT (4-49) U/L Alkaline Phosphatase (38-126) U/L Total Protein (6.3-8.2) g/dL Albumin (3.5-5.0) g/dL Urine Protein Trace H (Negative) Urine Glucose (UA) 2+ H (Negative) 06/24/23 06/24/23 06/24/23 Range/Units 01:40 04:23 05:12 WBC (3.8-10.6) k/uL RDW (11.5-15.5) % Neutrophils # (1.3-7.7) k/uL Lymphocytes # (1.0-4.8) k/uL APTT (22.0-30.0) sec Sodium (137-145) mmol/L BUN (9-20) mg/dL Creatinine (0.66-1.25) mg/dL Glucose (74-99) mg/dL POC Glucose (mg/dL) 212 H (70-110) mg/dL Plasma Lactic Acid Gabriel 3.4 H* 3.6 H* (0.7-2.0) mmol/L Calcium (8.4-10.2) mg/dL ALT (4-49) U/L Alkaline Phosphatase (38-126) U/L Total Protein (6.3-8.2) g/dL Albumin (3.5-5.0) g/dL Urine Protein (Negative) Urine Glucose (UA) (Negative) 06/24/23 06/24/23 Range/Units 07:44 09:38 WBC (3.8-10.6) k/uL RDW (11.5-15.5) % Neutrophils # (1.3-7.7) k/uL Lymphocytes # (1.0-4.8) k/uL APTT (22.0-30.0) sec Sodium (137-145) mmol/L BUN (9-20) mg/dL Creatinine (0.66-1.25) mg/dL Glucose (74-99) mg/dL POC Glucose (mg/dL) 168 H (70-110) mg/dL Plasma Lactic Acid Gabriel 4.4 H* (0.7-2.0) mmol/L Calcium (8.4-10.2) mg/dL ALT (4-49) U/L Alkaline Phosphatase (38-126) U/L Total Protein (6.3-8.2) g/dL Albumin (3.5-5.0) g/dL Urine Protein (Negative) Urine Glucose (UA) (Negative)
[2023-06-24 12:40] LABS: Glucose,Whole Blood 185 mg/dL (70-110)
--- NOTE | 2023-06-24 13:31 | P.CRDCN ---
History of Present Illness Consult date: 06/24/23 Consult reason: atrial fibrillation History of present illness: The patient is a 68-year-old male who was recently admitted with influenza A and A. fib with RVR. He was discharged home on digoxin and diltiazem. He returned to the emergency room with worsening weakness and fatigue. Cardiology was again consulted for atrial fibrillation. EKG showed heart rate in the 1 teens. The patient subsequently converted back to sinus mechanism. DIAGNOSTICS: EKG shows atrial fibrillation with heart rate 117 bpm Chest x-ray shows similar diffuse interstitial and patchy infiltrates, right greater than left Lab data: WBC 18.1, hemoglobin 13.7, hematocrit 41.9, platelet 294, sodium 136, potassium 4.1, BUN 41, creatinine 0.64, lactate 4.0, 4.4, magnesium 2.3, AST 54, ALT 63, ALP 170, troponin 0.01, BNP 1770 REVIEW OF SYSTEMS: No diaphoresis. Patient denies headache, dizziness, blurred vision, double vision. Patient denies any stomach discomfort. No nausea, vomiting. No hematochezia. No hematemesis. Denies any black stools or blood in his stools. Denies dysuria or hematuria. No muscle weakness or numbness. Positive for weakness and fatigue. Positive for shortness of breath. PHYSICAL EXAMINATION: This is a 68-year-old male in no apparent distress at the time of my examination. HEENT: Head is atraumatic, normocephalic. Pupils are equal, round. There is no jugular venous distention. No carotid bruit is heard. CHEST EXAMINATION: Lungs are clear to auscultation. No chest wall tenderness is noted on palpation or with deep breathing. Bilateral inspiratory and expiratory wheezes HEART EXAMINATION: Heart regular rate and rhythm. S1, S2 heard. No murmurs, gallops or rub. ABDOMEN: Soft, nontender. Bowel sounds are heard. No organomegaly noted. EXTREMITIES: 2+ peripheral pulses. Mild peripheral edema and no calf tenderness noted. NEUROLOGIC EXAMINATION: Patient is awake, alert and oriented x3. FINAL ASSESSMENT AND PLAN: Shortness of breath, secondary to community-acquired pneumonia Paroxysmal atrial fibrillation with RVR Bicuspid aortic valve Aortic stenosis Diabetes Hypertension Dyslipidemia PLAN: Resume home cardiac medications Permissible episodes of A. fib up to 130 bpm while in the acute phase of illness Continue aggressive pulmonary hygiene Further recommendations based on clinical course I am dictating on behalf of Dr Jluis Palmer's history/physical and assessment/plan. Past Medical History Past Medical History: No Reported History, Atrial Fibrillation, Atrial Flutter, Asthma, Heart Failure, COPD, Diabetes Mellitus, GERD/Reflux, Hyperlipidemia, Hypertension, Osteoarthritis (OA), Pneumonia, Prostate Disorder, Pulmonary Embolus (PE), Skin Disorder, Sleep Apnea/CPAP/BIPAP Additional Past Medical History / Comment(s): CPAP use. Neuropathy bilateral feet, dermatitis, enlarged prostate, PE found in 07/2003 while hospitalized for pneumonia, spinal stenosis, degenerative scoliosis, migraines, palpitations, "bleeds easily", hospitalized in August w/influenza-can't seem to "shake" cough. SOB and fatigue last few months. History of Any Multi-Drug Resistant Organisms: None Reported Past Surgical History: Bowel Resection, Heart Catheterization, Hernia Repair, Joint Replacement, Orthopedic Surgery, Tonsillectomy Additional Past Surgical History / Comment(s): Bilateral hip replacements, bilateral cataracts removed, hiatal hernia repair, incisional hernia repair with mesh-had bowel complication that resulted in a bowel resection, bronchoscopies, colonoscopy, ulna nerve right elbow surgery, cardioversion, ARNOL. Past Anesthesia/Blood Transfusion Reactions: Previous Problems w/ Anesthesia, Family History of Problems w/ Anesthesia Additional Past Anesthesia/Blood Transfusion Reaction / Comment(s): Problem with being "twilighted" - becomes very combative. Slow to wake up. Uncle has same symptoms with "twilight". Past Psychological History: Depression Smoking Status: Former smoker - Past Family History Father Family Medical History: Cancer Additional Family Medical History / Comment(s): Prostrate cancer. Mother Family Medical History: Cancer Additional Family Medical History / Comment(s): Skin cancer. Brother(s) Family Medical History: Cancer Additional Family Medical History / Comment(s): Brother of lung cancer. Medications and Allergies Home Medications Medication Instructions Recorded Confirmed Type Pregabalin [Lyrica] 300 mg PO BID 08/18/17 06/23/23 History Montelukast Sodium [Singulair] 10 mg PO HS 01/29/18 06/23/23 History Furosemide [Lasix] 20 mg PO BID 07/11/18 06/23/23 History Potassium Chloride [K-Tab ER] 20 meq PO BID 07/11/18 06/23/23 History Betamethasone Dipropionate 1 applic TOPICAL BID PRN 09/02/18 06/23/23 History [Betamethasone Dipropionate 0.05% Cream] Fluticasone Nasal [place] [Flonase 2 spr EA NOSTRIL HS 06/28/19 06/23/23 History Nasal [place]] Ipratropium-Albuterol Nebulize 3 ml INHALATION RT-QID PRN 06/28/19 06/23/23 History [Duoneb 0.5 mg-3 mg/3 ml Soln] Ipratropium [place] 0.06%Nasal 2 spray EA NOSTRIL DAILY 06/30/19 06/23/23 History [Atrovent Nasal 0.06%] Albuterol Sulfate [Ventolin HFA] 2 puff INHALATION RT-QID PRN 05/21/21 06/23/23 History Betamethasone Dipropionate 1 applic TOPICAL DAILY PRN 05/21/21 06/23/23 History [Betamethasone Diprop Augm Gel 0.05%] Diclofenac Sodium Gel [Voltaren 1% 1 applic TOPICAL QID PRN 05/21/21 06/23/23 History Gel] Ketoconazole 2% Shampoo [Nizoral] 1 applic TOPICAL DAILY PRN 05/21/21 06/23/23 History metFORMIN HCL [Glucophage] 1,000 mg PO BID 05/21/21 06/23/23 History Budesonide [Pulmicort] 0.5 mg INHALATION RT-BID PRN 01/01/23 06/23/23 History Fluticasone/Umeclidin/Vilanter 1 puff INHALATION RT-DAILY 01/01/23 06/23/23 History [Trelegy Ellipta 200-62.5-25] Formoterol Fumarate [Perforomist] 20 mcg INHALATION RT-BID PRN 01/01/23 06/23/23 History Pravastatin Sodium [Pravachol] 40 mg PO HS 01/01/23 06/23/23 History Sertraline [Zoloft] 100 mg PO DAILY 01/01/23 06/23/23 History traMADol HCL 100 mg PO Q6H PRN 01/01/23 06/23/23 History Ferrous Sulfate [Feosol] 325 mg PO DAILY #30 tab 01/07/23 06/23/23 Rx Pantoprazole [Protonix] 40 mg PO AC-BRKFST #30 tab 01/07/23 06/23/23 Rx Apixaban [Eliquis] 2.5 mg PO BID 06/15/23 06/23/23 History Collagenase [Santyl Ointment] 1 applic TOPICAL DAILY PRN 06/15/23 06/23/23 History HYDROcodone/APAP 5-325MG [Rodanthe 1 tab PO BID PRN 06/15/23 06/23/23 History 5-325] Digoxin [Lanoxin] 125 mcg PO DAILY #30 tab 06/23/23 06/23/23 Rx Diltiazem Cd [Cardizem CD] 240 mg PO DAILY #30 cap 06/23/23 06/23/23 Rx cefUROXime axetiL [Ceftin] 500 mg PO BID 4 Days #8 tab 06/23/23 06/23/23 Rx predniSONE [Deltasone] See Taper PO DAILY 06/23/23 06/23/23 History Allergies Allergy/AdvReac Type Severity Reaction Status Date / Time gemfibrozil [From Lopid] Allergy Unknown Verified 06/23/23 21:09 aspirin AdvReac Abdominal Verified 06/23/23 21:09 Pain ceftriaxone [From Rocephin] AdvReac Diarrhea Verified 06/23/23 21:09 fentanyl AdvReac Hallucinati Verified 06/23/23 21:09 ons moxifloxacin [From Avelox] AdvReac Unknown Verified 06/23/23 21:09 Physical Exam Vitals: Vital Signs Temp Pulse Pulse Resp BP Pulse Ox 06/24/23 11:56 79 06/24/23 11:47 89 06/24/23 10:02 72 18 121/85 90 L 06/24/23 08:24 98 20 135/89 91 L 06/24/23 07:52 78 06/24/23 07:46 76 16 123/90 92 L 06/24/23 07:37 76 93 L 06/24/23 06:32 97.7 F 72 12 123/90 91 L 06/24/23 05:10 90 L 06/24/23 05:00 78 14 128/95 87 L 06/24/23 02:30 89 13 127/90 94 L 06/24/23 01:59 97 16 110/92 93 L 06/23/23 23:58 105 H 06/23/23 23:48 108 H 06/23/23 23:18 90 24 111/79 93 L 06/23/23 22:29 80 22 92/66 96 06/23/23 22:08 106 H 06/23/23 21:57 104 H 130 H 06/23/23 21:53 105 H 24 93/70 93 L 06/23/23 21:11 123 H 19 91/59 91 L 06/23/23 21:05 98.0 F 140 H 18 80/67 91 L Intake and Output 06/23/23 06/24/23 06/24/23 22:59 06:59 14:59 Intake Total 5 Balance 5 Intake: IV 5 Invasive Line 1 5 Other: Weight 111.13 kg Results 06/23/23 21:10 06/23/23 21:10 Cardiac Enzymes 06/23/23 06/23/23 Range/Units 21:10 21:10 AST 54 (17-59) U/L Troponin I 0.018 (0.000-0.034) ng/mL Coagulation 06/23/23 Range/Units 21:10 PT 10.5 (10.0-12.5) sec APTT 21.0 L (22.0-30.0) sec CBC 06/23/23 Range/Units 21:10 WBC 18.1 H (3.8-10.6) k/uL RBC 4.50 (4.30-5.90) m/uL Hgb 13.7 (13.0-17.5) gm/dL Hct 41.9 (39.0-53.0) % Plt Count 294 (150-450) k/uL Comprehensive Metabolic Panel 06/23/23 Range/Units 21:10 Sodium 136 L (137-145) mmol/L Potassium 4.1 (3.5-5.1) mmol/L Chloride 101 (98-107) mmol/L Carbon Dioxide 26 (22-30) mmol/L BUN 41 H (9-20) mg/dL Creatinine 0.64 L (0.66-1.25) mg/dL Glucose 241 H (74-99) mg/dL Calcium 8.1 L (8.4-10.2) mg/dL AST 54 (17-59) U/L ALT 63 H (4-49) U/L Alkaline Phosphatase 170 H (38-126) U/L Total Protein 4.4 L (6.3-8.2) g/dL Albumin 2.5 L (3.5-5.0) g/dL Current Medications Generic Name Dose Route Start Last Admin Trade Name Freq PRN Reason Stop Dose Admin Hydrocodone Bitart/Acetaminophen 1 each 06/24/23 02:47 Hydrocodone/Apap 5-325mg 1 Each Tab PO BID PRN Pain Albuterol Sulfate 2.5 mg 06/24/23 08:00 06/24/23 11:47 Albuterol Nebulized 2.5 Mg/3 Ml INHALATION 2.5 mg RT-QID ARIANE Administration Albuterol/Ipratropium 3 ml 06/24/23 02:47 Ipratropium-Albuterol 3 Ml Neb INHALATION RT-QID PRN Shortness Of Breath Alprazolam 0.5 mg 06/24/23 03:23 Alprazolam 0.5 Mg Tab PO BID PRN Anxiety Apixaban 2.5 mg 06/24/23 09:00 06/24/23 08:18 Apixaban 2.5 Mg Tablet PO 2.5 mg BID ARIANE Administration Protocol Betamethasone Dipropionate 1 applic 06/24/23 09:00 Betamethasone Dipropionate 0.05% Cream 15 Gm Tube TOPICAL DAILY PRN Skin Irritation Budesonide/Formoterol Fumarate 2 puff 06/24/23 08:00 06/24/23 07:36 Symbicort 80-4.5 Mcg Inhaler INHALATION 2 puff RT-BID ARIANE Administration Dextrose/Water 25 ml 06/24/23 02:46 Dextrose 50% Syringe 50 Ml IVP PER PROTOCOL PRN Hypoglycemia Protocol Dextrose/Water 50 ml 06/24/23 02:46 Dextrose 50% Syringe 50 Ml IVP PER PROTOCOL PRN Hypoglycemia Protocol Digoxin 125 mcg 06/24/23 09:00 06/24/23 08:18 Digoxin 125 Mcg Tab PO 125 mcg DAILY ARIANE Administration Diltiazem HCl 240 mg 06/24/23 09:00 06/24/23 08:18 Diltiazem Cd 240 Mg Cap.Er.24h PO 240 mg DAILY ARIANE Administration Ferrous Sulfate 325 mg 06/25/23 09:00 Ferrous Sulfate 325 Mg Tab PO DAILY [facility]ANE Fluticasone Propionate 2 spray 06/24/23 21:00 Fluticasone 50mcg/[place] Nasal 16gm EA NOSTRIL HS ARIANE Furosemide 20 mg 06/24/23 21:00 Furosemide 20 Mg Tab PO BID ARIANE Gabapentin 300 mg 06/24/23 09:00 06/24/23 08:18 Gabapentin 300 Mg Cap PO 300 mg BID ARIANE Administration Ceftriaxone Sodium 2 gm/ 50 mls @ 100 mls/hr 06/24/23 12:30 Sodium Chloride IVPB Q24HR ARIANE Protocol Insulin Aspart 0 unit 06/24/23 07:30 06/24/23 08:17 Insulin Aspart (Novolog) 100 Unit/Ml Vial SQ 3 unit ACHS ARIANE Administration Protocol Ipratropium [place] 2 spray 06/25/23 09:00 Ipratropium [place] 0.06% Nasal [place] (15 Ml) EA NOSTRIL DAILY [facility] Methylprednisolone Sodium Succinate 60 mg 06/24/23 12:00 Methylprednisolone Sod Succi 125 Mg/2 Ml Vial IV Q6HR [facility] Miscellaneous Information 1 each 06/23/23 23:13 Pneumonia Protocol Utilized 1 Each Misc PO ONCE PRN Per Protocol Montelukast Sodium 10 mg 06/24/23 21:00 Montelukast 10 Mg Tab PO HS ARIANE Pantoprazole Sodium 40 mg 06/24/23 07:30 06/24/23 08:18 Pantoprazole 40 Mg Tablet PO 40 mg AC-BRKFST ARIANE Administration Pravastatin Sodium 40 mg 06/24/23 21:00 Pravastatin Sodium 40 Mg Tab PO HS [facility]ANE Sertraline HCl 100 mg 06/24/23 09:00 06/24/23 08:18 Sertraline 100 Mg Tab PO 100 mg DAILY ARIANE Administration Intake and Output 06/23/23 06/24/23 06/24/23 22:59 06:59 14:59 Intake Total 5 Balance 5 Intake: IV 5 Invasive Line 1 5 Other: Weight 111.13 kg 06/23/23 21:10 06/23/23 21:10
[2023-06-24] MEDS: methylPREDNISolone SOD SUCCI 125 MG/2 ML VIAL IV SCH ×2 (13:47→19:12)
[2023-06-24] MEDS: ALPRAZolam 0.5 MG TAB PO PRN (13:53)
[2023-06-24] MEDS ORDERED: LOPERAMIDE 2 MG CAP PO PRN (13:55)
--- NOTE | 2023-06-24 14:31 | P.CNPUL ---
History of Present Illness Consult date: 06/24/23 Requesting physician: Dillon Carlos Reason for consult: COPD, pneumonia Chief complaint: Shortness of breath History of present illness: This is a 68-year-old white male with history of multiple medical problems, patient was just in the hospital yesterday, and he was readmitted today. Kvnge ntly the patient was admitted initially on 06/15/23, and he was in the hospital all along for almost 10 days, and we were not consulted on this patient all along. The patient did come in with extensive streptococcal pneumoniae pneumonia, and streptococcal bacteremia. Patient had ALLERGY to multiple antibiotics, and he was seen by infectious disease on consultation. All along the patient was on antibiotics, and according to the patient he never felt any improvement on along. Nonetheless the patient was discharged home on , and he was readmitted basically the same day. A is here today complaining of shortness of breath, cough, wheezing, and not feeling well looking back at his discharge summary, patient clearly had strep bacteremia, acute on chronic hypoxic respiratory failure, sepsis, COPD exacerbation, paroxysmal atrial fibrillation, hypertension, chronic diastolic congestive heart failure, type 2 diabetes, and prior history of pulmonary embolism as well as obstructive sleep apnea, neuropathy, and spinal stenosis. Patient reports that upon going home he was feeling very tired, debilitated, and he could not do much of anything, he was profoundly weak, and very short of breath. He also felt that his heart was racing all the time. Upon reevaluation the ER, patient was noted to be in atrial fibrillation with RVR, placed on Cardizem drip, and we were asked to see him on consultation this time chest x-ray continues to show bilateral interstitial infiltrates, no pleural effusions, the findings could be findings of postinflammatory changes from his recent extensive pneumonia or could be findings of mild interstitial edema. Nonetheless comparing the chest x-ray on this admission to his last admission there is a significant improvement and side believe the findings are most likely postinflammatory in nature. Review of Systems CONSTITUTIONAL: Weakness fatigue and no energy. EYES: Denies change in vision. EARS, NOSE, MOUTH, THROAT: Denies headaches, denies sore throat. CARDIOVASCULAR: Shortness of breath and palpitations. RESPIRATORY: As noted in HPI GASTROINTESTINAL: Negative. GENITOURINARY: Negative MUSKULOSKELETAL: Negative except for generalized weakness INTEGUMENTARY: Negative NEUROLOGICAL: Weakness otherwise negative. PSYCHIATRIC: No depression symptoms. HEMATOLOGIC/LYMPHATIC: Negative Past Medical History Past Medical History: No Reported History, Atrial Fibrillation, Atrial Flutter, Asthma, Heart Failure, COPD, Diabetes Mellitus, GERD/Reflux, Hyperlipidemia, Hypertension, Osteoarthritis (OA), Pneumonia, Prostate Disorder, Pulmonary Embolus (PE), Skin Disorder, Sleep Apnea/CPAP/BIPAP Additional Past Medical History / Comment(s): CPAP use. Neuropathy bilateral feet, dermatitis, enlarged prostate, PE found in 07/2003 while hospitalized for pneumonia, spinal stenosis, degenerative scoliosis, migraines, palpitations, "bleeds easily", hospitalized in August w/influenza-can't seem to "shake" cough. SOB and fatigue last few months. History of Any Multi-Drug Resistant Organisms: None Reported Past Surgical History: Bowel Resection, Heart Catheterization, Hernia Repair, Joint Replacement, Orthopedic Surgery, Tonsillectomy Additional Past Surgical History / Comment(s): Bilateral hip replacements, bilateral cataracts removed, hiatal hernia repair, incisional hernia repair with mesh-had bowel complication that resulted in a bowel resection, bronchoscopies, colonoscopy, ulna nerve right elbow surgery, cardioversion, ARNOL. Past Anesthesia/Blood Transfusion Reactions: Previous Problems w/ Anesthesia, Family History of Problems w/ Anesthesia Additional Past Anesthesia/Blood Transfusion Reaction / Comment(s): Problem with being "twilighted" - becomes very combative. Slow to wake up. Uncle has same symptoms with "twilight". Past Psychological History: Depression Additional Psychological History / Comment(s): . Smoking Status: Former smoker Past Alcohol Use History: None Reported Additional Past Alcohol Use History / Comment(s): Pt started smoking in 1968, quit in 1995. Past Drug Use History: None Reported Additional Drug Use History / Comment(s): Pt. stated that he "smoked marajuana occassionally when he graduated school, about 40 years ago." - Past Family History Father Family Medical History: Cancer Additional Family Medical History / Comment(s): Prostrate cancer. Mother Family Medical History: Cancer Additional Family Medical History / Comment(s): Skin cancer. Brother(s) Family Medical History: Cancer Additional Family Medical History / Comment(s): Brother of lung cancer. Medications and Allergies Home Medications Medication Instructions Recorded Confirmed Type Pregabalin [Lyrica] 300 mg PO BID 08/18/17 06/23/23 History Montelukast Sodium [Singulair] 10 mg PO HS 01/29/18 06/23/23 History Furosemide [Lasix] 20 mg PO BID 07/11/18 06/23/23 History Potassium Chloride [K-Tab ER] 20 meq PO BID 07/11/18 06/23/23 History Betamethasone Dipropionate 1 applic TOPICAL BID PRN 09/02/18 06/23/23 History [Betamethasone Dipropionate 0.05% Cream] Fluticasone Nasal [place] [Flonase 2 spr EA NOSTRIL HS 06/28/19 06/23/23 History Nasal [place]] Ipratropium-Albuterol Nebulize 3 ml INHALATION RT-QID PRN 06/28/19 06/23/23 History [Duoneb 0.5 mg-3 mg/3 ml Soln] Ipratropium [place] 0.06%Nasal 2 spray EA NOSTRIL DAILY 06/30/19 06/23/23 History [Atrovent Nasal 0.06%] Albuterol Sulfate [Ventolin HFA] 2 puff INHALATION RT-QID PRN 05/21/21 06/23/23 History Betamethasone Dipropionate 1 applic TOPICAL DAILY PRN 05/21/21 06/23/23 History [Betamethasone Diprop Augm Gel 0.05%] Diclofenac Sodium Gel [Voltaren 1% 1 applic TOPICAL QID PRN 05/21/21 06/23/23 History Gel] Ketoconazole 2% Shampoo [Nizoral] 1 applic TOPICAL DAILY PRN 05/21/21 06/23/23 History metFORMIN HCL [Glucophage] 1,000 mg PO BID 05/21/21 06/23/23 History Budesonide [Pulmicort] 0.5 mg INHALATION RT-BID PRN 01/01/23 06/23/23 History Fluticasone/Umeclidin/Vilanter 1 puff INHALATION RT-DAILY 01/01/23 06/23/23 History [Trelegy Ellipta 200-62.5-25] Formoterol Fumarate [Perforomist] 20 mcg INHALATION RT-BID PRN 01/01/23 06/23/23 History Pravastatin Sodium [Pravachol] 40 mg PO HS 01/01/23 06/23/23 History Sertraline [Zoloft] 100 mg PO DAILY 01/01/23 06/23/23 History traMADol HCL 100 mg PO Q6H PRN 01/01/23 06/23/23 History Ferrous Sulfate [Feosol] 325 mg PO DAILY #30 tab 01/07/23 06/23/23 Rx Pantoprazole [Protonix] 40 mg PO AC-BRKFST #30 tab 01/07/23 06/23/23 Rx Apixaban [Eliquis] 2.5 mg PO BID 06/15/23 06/23/23 History Collagenase [Santyl Ointment] 1 applic TOPICAL DAILY PRN 06/15/23 06/23/23 History HYDROcodone/APAP 5-325MG [[place] 1 tab PO BID PRN 06/15/23 06/23/23 History 5-325] Digoxin [Lanoxin] 125 mcg PO DAILY #30 tab 06/23/23 06/23/23 Rx Diltiazem Cd [Cardizem CD] 240 mg PO DAILY #30 cap 06/23/23 06/23/23 Rx cefUROXime axetiL [Ceftin] 500 mg PO BID 4 Days #8 tab 06/23/23 06/23/23 Rx predniSONE [Deltasone] See Taper PO DAILY 06/23/23 06/23/23 History Allergies Allergy/AdvReac Type Severity Reaction Status Date / Time gemfibrozil [From Lopid] Allergy Unknown Verified 06/23/23 21:09 aspirin AdvReac Abdominal Verified 06/23/23 21:09 Pain ceftriaxone [From Rocephin] AdvReac Diarrhea Verified 06/23/23 21:09 fentanyl AdvReac Hallucinati Verified 06/23/23 21:09 ons moxifloxacin [From Avelox] AdvReac Unknown Verified 06/23/23 21:09 Physical Exam Vitals: Vital Signs Temp Pulse Pulse Resp BP BP Pulse Ox 06/24/23 13:57 98.6 F 81 20 103/67 95 06/24/23 11:56 79 06/24/23 11:47 89 06/24/23 10:02 72 18 121/85 90 L 06/24/23 08:24 98 20 135/89 91 L 06/24/23 07:52 78 06/24/23 07:46 76 16 123/90 92 L 06/24/23 07:37 76 93 L 06/24/23 06:32 97.7 F 72 12 123/90 91 L 06/24/23 05:10 90 L 06/24/23 05:00 78 14 128/95 87 L 06/24/23 02:30 89 13 127/90 94 L 06/24/23 01:59 97 16 110/92 93 L 06/23/23 23:58 105 H 06/23/23 23:48 108 H 06/23/23 23:18 90 24 111/79 93 L 06/23/23 22:29 80 22 92/66 96 06/23/23 22:08 106 H 06/23/23 21:57 104 H 130 H 06/23/23 21:53 105 H 24 93/70 93 L 06/23/23 21:11 123 H 19 91/59 91 L 06/23/23 21:05 98.0 F 140 H 18 80/67 91 L Intake and Output 06/23/23 06/24/23 06/24/23 22:59 06:59 14:59 Intake Total 530 Output Total 450 Balance 80 Intake: IV 10 Invasive Line 1 10 Intake, IV Titration 400 Amount Azithromycin 500 mg In 250 Sodium Chloride 0.9% 250 ml @ 250 mls/hr IVPB DAILY@2200 [facility] Rx#: [id number] Piperacillin-Tazobactam 3 100 .375 gm In Sodium Chloride 0.9% 100 ml @ 25 mls/hr IVPB Q8HR [facility] Rx# :[id number] cefTRIAXone 2 gm In 50 Sodium Chloride 0.9% 50 ml @ 100 mls/hr IVPB Q24HR [facility] Rx#:[id number] Oral 120 Output: Urine 450 Other: # Voids 1 Weight 111.13 kg Physical Exam: Revealed a 67-year-old white male in no distress.patient is on 2 L nasal cannula. O2 saturation was 90% on room Head: Atraumatic, normocephalic. HEENT:[Neck is supple.] [No neck masses.] [No thyromegaly.] [No JVD.] Chest: Crackles and rhonchi noted bilaterally more so on the right side. Cardiac Exam: Irregular irregular rhythm. [Normal S1 and S2, no S3 gallop, over 6 systolic murmur thought the precordium. Abdomen: [Soft, nontender, no megaly, no rebound, no guarding, normal bowel sounds.Large abdominal wall hernia noted. This is chronic.] Extremities: [No clubbing, mild nonpitting bilateral edema noted. Neurological Exam: [No focal neurologic deficit.]alert oriented 3. Psychiatric: Normal mood affect and normal contents examination. Skin: No rashes. Results - Laboratory Findings CBC and BMP: 06/23/23 21:10 06/23/23 21:10 PT/INR, D-dimer PT 10.5 sec (10.0-12.5) 06/23/23 21:10 INR 0.9 (<1.2) 06/23/23 21:10 Abnormal lab findings: Abnormal Labs 06/23/23 06/23/23 06/23/23 21:10 21:10 21:10 WBC 18.1 H RDW 16.2 H Neutrophils # 17.2 H Lymphocytes # 0.3 L APTT 21.0 L Sodium 136 L BUN 41 H Creatinine 0.64 L Glucose 241 H POC Glucose (mg/dL) Plasma Lactic Acid Gabriel Calcium 8.1 L ALT 63 H Alkaline Phosphatase 170 H Total Protein 4.4 L Albumin 2.5 L Procalcitonin Urine Protein Urine Glucose (UA) 06/23/23 06/23/23 06/23/23 21:10 21:17 23:00 WBC RDW Neutrophils # Lymphocytes # APTT Sodium BUN Creatinine Glucose POC Glucose (mg/dL) 227 H Plasma Lactic Acid Gabriel 4.0 H* Calcium ALT Alkaline Phosphatase Total Protein Albumin Procalcitonin Urine Protein Trace H Urine Glucose (UA) 2+ H 06/24/23 06/24/23 06/24/23 01:40 04:23 05:12 WBC RDW Neutrophils # Lymphocytes # APTT Sodium BUN Creatinine Glucose POC Glucose (mg/dL) 212 H Plasma Lactic Acid Gabriel 3.4 H* 3.6 H* Calcium ALT Alkaline Phosphatase Total Protein Albumin Procalcitonin Urine Protein Urine Glucose (UA) 06/24/23 06/24/23 06/24/23 07:44 09:38 09:38 WBC RDW Neutrophils # Lymphocytes # APTT Sodium BUN Creatinine Glucose POC Glucose (mg/dL) 168 H Plasma Lactic Acid Gabriel 4.4 H* Calcium ALT Alkaline Phosphatase Total Protein Albumin Procalcitonin 0.17 H Urine Protein Urine Glucose (UA) 06/24/23 06/24/23 12:39 13:14 WBC RDW Neutrophils # Lymphocytes # APTT Sodium BUN Creatinine Glucose POC Glucose (mg/dL) 185 H Plasma Lactic Acid Gabriel 4.4 H* Calcium ALT Alkaline Phosphatase Total Protein Albumin Procalcitonin Urine Protein Urine Glucose (UA) - Diagnostic Findings Chest x-ray: image reviewed (Chest x-ray as noted in HPI.) Assessment and Plan Assessment: Impression: Paroxysmal atrial fibrillation with RVR, contributing to shortness of breath Shortness of breath, multifactorial secondary to recent extensive pneumonia with postinflammatory changes noted in the right lung. This was a streptococcal pneumonia with streptococcal bacteremia, a Acute exacerbation of COPD contributing to shortness of breath, patient normally has mild COPD based on previous workup. Bicuspid aortic valve and aortic stenosis also contributing to his shortness of breath. Doubt congestive heart failure however is not entirely ruled out. Benign essential hypertension Mild pulmonary hypertension noted on previous echocardiogram. Previous history of GI bleeding while on anticoagulation therapy Morbid obesity History of pulmonary embolism History of GERD and previous Jim's fundoplication. History of bowel resection Obstructive sleep apnea syndrome on CPAP at 16 cm of water recommendation: Continue present supportive care measures Continue antibiotics although the patient did receive adequate course of treatment on the last admission for streptococcal pneumonia I believe the findings are most likely postinflammatory changes from recent extensive pneumonia improving. Continue eliquis Continue Lasix Continue Cardizem and transition eventually to oral diltiazem. Continue DuoNeb updrafts 4 times a day and when necessary continue methylprednisolone 60 mg IV push every 6 hours Continue GI prophylaxis/Protonix Continue Symbicort We will continue to follow Time with Patient: Greater than 30
[2023-06-24] MEDS: LACTOBACILLUS ACIDOPHILUS/PECT 1 EACH CAPSULE PO SCH (15:19)
[2023-06-24 17:08] LABS: Glucose,Whole Blood 143 mg/dL (70-110)
[2023-06-24 21:22] LABS: Glucose,Whole Blood 161 mg/dL (70-110)
[2023-06-24] MEDS: PRAVASTATIN SODIUM 40 MG TAB PO SCH (21:28)
[2023-06-24] MEDS: MONTELUKAST 10 MG TAB PO SCH (21:28)
[2023-06-24] MEDS: HYDROcodone/APAP 5-325MG 1 EACH TAB PO PRN (21:28)
[2023-06-24] MEDS ORDERED: AZITHROMYCIN 500 MG in SODIUM CHLORIDE 0.9% 250 ML IVPB SCH (22:00)
[2023-06-24] MEDS: FUROSEMIDE 20 MG TAB PO SCH (22:25)
--- NOTE | 2023-06-24 22:26 | P.CONS ---
History of Present Illness - Reason for Consult Consult date: 06/24/23 - History of Present Illness Patient is a 68-year-old male with a past medical history significant for atrial fibrillation atrial flutter diabetes mellitus hypertension hyperlipidemia with recent admission to the hospital with sepsis did have evidence of strep pneumo bacteremia secondary to pneumonia and also have issues with atrial fibrillation patient was stabilized repeat blood culture was negative white count normalized and the patient was discharged home yesterday on oral Ceftin patient presenting back to the hospital later that evening with the patient complaining of feeling very tired and debilitated and he was unable to walk or get a formal laying down or sitting position because of extreme weakness and the patient also complaining of some shortness of breath patient presenting back to the hospital on arrival to the ER the patient was noticed to be in A-fib with RVR and has been started on Cardizem drip patient denies having any chest pain. Denies having any worsening cough or sputum production no nausea no vomiting no abdominal pain or any diarrhea on presentation to the hospital the patient was afebrile and no fever has been recorded subsequently patient was not hypotensive or hypoxic did have elevated lactic acid white count was 18.1 with a left shift urine was negative patient was started on ceftriaxone infectious disease was consulted for further management of antibiotic therapy Past Medical History Past Medical History: No Reported History, Atrial Fibrillation, Atrial Flutter, Asthma, Heart Failure, COPD, Diabetes Mellitus, GERD/Reflux, Hyperlipidemia, Hypertension, Osteoarthritis (OA), Pneumonia, Prostate Disorder, Pulmonary Embo meghann (PE), Skin Disorder, Sleep Apnea/CPAP/BIPAP Additional Past Medical History / Comment(s): CPAP use. Neuropathy bilateral feet, dermatitis, enlarged prostate, PE found in 07/2003 while hospitalized for pneumonia, spinal stenosis, degenerative scoliosis, migraines, palpitations, "bleeds easily", hospitalized in August w/influenza-can't seem to "shake" cough. SOB and fatigue last few months. History of Any Multi-Drug Resistant Organisms: None Reported Past Surgical History: Bowel Resection, Heart Catheterization, Hernia Repair, Joint Replacement, Orthopedic Surgery, Tonsillectomy Additional Past Surgical History / Comment(s): Bilateral hip replacements, bilateral cataracts removed, hiatal hernia repair, incisional hernia repair with mesh-had bowel complication that resulted in a bowel resection, bronchoscopies, colonoscopy, ulna nerve right elbow surgery, cardioversion, ARNOL. Past Anesthesia/Blood Transfusion Reactions: Previous Problems w/ Anesthesia, Family History of Problems w/ Anesthesia Additional Past Anesthesia/Blood Transfusion Reaction / Comm: Problem with being "twilighted" - becomes very combative. Slow to wake up. Uncle has same symptoms with "twilight". Past Psychological History: Depression Additional Psychological History / Comment(s): . Smoking Status: Former smoker Past Alcohol Use History: None Reported Additional Past Alcohol Use History / Comment(s): Pt started smoking in 1968, quit in 1995. Past Drug Use History: None Reported Additional Drug Use History / Comment(s): Pt. stated that he "smoked marajuana occassionally when he graduated school, about 40 years ago." - Past Family History Father Family Medical History: Cancer Additional Family Medical History / Comment(s): Prostrate cancer. Mother Family Medical History: Cancer Additional Family Medical History / Comment(s): Skin cancer. Brother(s) Family Medical History: Cancer Additional Family Medical History / Comment(s): Brother of lung cancer. Medications and Allergies Home Medications Medication Instructions Recorded Confirmed Type Pregabalin [Lyrica] 300 mg PO BID 08/18/17 06/23/23 History Montelukast Sodium [Singulair] 10 mg PO HS 01/29/18 06/23/23 History Furosemide [Lasix] 20 mg PO BID 07/11/18 06/23/23 History Potassium Chloride [K-Tab ER] 20 meq PO BID 07/11/18 06/23/23 History Betamethasone Dipropionate 1 applic TOPICAL BID PRN 09/02/18 06/23/23 History [Betamethasone Dipropionate 0.05% Cream] Fluticasone Nasal [place] [Flonase 2 spr EA NOSTRIL HS 06/28/19 06/23/23 History Nasal [place]] Ipratropium-Albuterol Nebulize 3 ml INHALATION RT-QID PRN 06/28/19 06/23/23 History [Duoneb 0.5 mg-3 mg/3 ml Soln] Ipratropium [place] 0.06%Nasal 2 spray EA NOSTRIL DAILY 06/30/19 06/23/23 History [Atrovent Nasal 0.06%] Albuterol Sulfate [Ventolin HFA] 2 puff INHALATION RT-QID PRN 05/21/21 06/23/23 History Betamethasone Dipropionate 1 applic TOPICAL DAILY PRN 05/21/21 06/23/23 History [Betamethasone Diprop Augm Gel 0.05%] Diclofenac Sodium Gel [Voltaren 1% 1 applic TOPICAL QID PRN 05/21/21 06/23/23 History Gel] Ketoconazole 2% Shampoo [Nizoral] 1 applic TOPICAL DAILY PRN 05/21/21 06/23/23 History metFORMIN HCL [Glucophage] 1,000 mg PO BID 05/21/21 06/23/23 History Budesonide [Pulmicort] 0.5 mg INHALATION RT-BID PRN 01/01/23 06/23/23 History Fluticasone/Umeclidin/Vilanter 1 puff INHALATION RT-DAILY 01/01/23 06/23/23 History [Trelegy Ellipta 200-62.5-25] Formoterol Fumarate [Perforomist] 20 mcg INHALATION RT-BID PRN 01/01/23 06/23/23 History Pravastatin Sodium [Pravachol] 40 mg PO HS 01/01/23 06/23/23 History Sertraline [Zoloft] 100 mg PO DAILY 01/01/23 06/23/23 History traMADol HCL 100 mg PO Q6H PRN 01/01/23 06/23/23 History Ferrous Sulfate [Feosol] 325 mg PO DAILY #30 tab 01/07/23 06/23/23 Rx Pantoprazole [Protonix] 40 mg PO AC-BRKFST #30 tab 01/07/23 06/23/23 Rx Apixaban [Eliquis] 2.5 mg PO BID 06/15/23 06/23/23 History Collagenase [Santyl Ointment] 1 applic TOPICAL DAILY PRN 06/15/23 06/23/23 History HYDROcodone/APAP 5-325MG [[place] 1 tab PO BID PRN 06/15/23 06/23/23 History 5-325] Digoxin [Lanoxin] 125 mcg PO DAILY #30 tab 06/23/23 06/23/23 Rx Diltiazem Cd [Cardizem CD] 240 mg PO DAILY #30 cap 06/23/23 06/23/23 Rx cefUROXime axetiL [Ceftin] 500 mg PO BID 4 Days #8 tab 06/23/23 06/23/23 Rx predniSONE [Deltasone] See Taper PO DAILY 06/23/23 06/23/23 History Allergies Allergy/AdvReac Type Severity Reaction Status Date / Time gemfibrozil [From Lopid] Allergy Unknown Verified 06/23/23 21:09 aspirin AdvReac Abdominal Verified 06/23/23 21:09 Pain ceftriaxone [From Rocephin] AdvReac Diarrhea Verified 06/23/23 21:09 fentanyl AdvReac Hallucinati Verified 06/23/23 21:09 ons gabapentin AdvReac Hallucinati Verified 06/24/23 21:18 ons moxifloxacin [From Avelox] AdvReac Unknown Verified 06/23/23 21:09 Physical Exam Vitals: Vital Signs Temp Pulse Pulse Resp BP BP Pulse Ox 06/24/23 13:57 98.6 F 81 20 103/67 95 06/24/23 11:56 79 06/24/23 11:47 89 06/24/23 10:02 72 18 121/85 90 L 06/24/23 08:24 98 20 135/89 91 L 06/24/23 07:52 78 06/24/23 07:46 76 16 123/90 92 L 06/24/23 07:37 76 93 L 06/24/23 06:32 97.7 F 72 12 123/90 91 L 06/24/23 05:10 90 L 06/24/23 05:00 78 14 128/95 87 L 06/24/23 02:30 89 13 127/90 94 L 06/24/23 01:59 97 16 110/92 93 L 06/23/23 23:58 105 H 06/23/23 23:48 108 H 06/23/23 23:18 90 24 111/79 93 L 06/23/23 22:29 80 22 92/66 96 06/23/23 22:08 106 H 06/23/23 21:57 104 H 130 H 06/23/23 21:53 105 H 24 93/70 93 L 06/23/23 21:11 123 H 19 91/59 91 L 06/23/23 21:05 98.0 F 140 H 18 80/67 91 L Intake and Output 06/23/23 06/24/23 06/24/23 22:59 06:59 14:59 Intake Total 530 Output Total 450 Balance 80 Intake: IV 10 Invasive Line 1 10 Intake, IV Titration 400 Amount Azithromycin 500 mg In 250 Sodium Chloride 0.9% 250 ml @ 250 mls/hr IVPB DAILY@2200 [facility] Rx#: [id number] Piperacillin-Tazobactam 3 100 .375 gm In Sodium Chloride 0.9% 100 ml @ 25 mls/hr IVPB Q8HR [facility] Rx# :[id number] cefTRIAXone 2 gm In 50 Sodium Chloride 0.9% 50 ml @ 100 mls/hr IVPB Q24HR [facility] Rx#:[id number] Oral 120 Output: Urine 450 Other: # Voids 1 Weight 111.13 kg Results CBC & Chem 7: 06/23/23 21:10 06/23/23 21:10 Labs: Abnormal Lab Results - Last 24 Hours (Table) 06/23/23 06/23/23 06/23/23 Range/Units 21:10 21:10 21:10 WBC 18.1 H (3.8-10.6) k/uL RDW 16.2 H (11.5-15.5) % Neutrophils # 17.2 H (1.3-7.7) k/uL Lymphocytes # 0.3 L (1.0-4.8) k/uL APTT 21.0 L (22.0-30.0) sec Sodium 136 L (137-145) mmol/L BUN 41 H (9-20) mg/dL Creatinine 0.64 L (0.66-1.25) mg/dL Glucose 241 H (74-99) mg/dL POC Glucose (mg/dL) (70-110) mg/dL Plasma Lactic Acid Gabriel (0.7-2.0) mmol/L Calcium 8.1 L (8.4-10.2) mg/dL ALT 63 H (4-49) U/L Alkaline Phosphatase 170 H (38-126) U/L Total Protein 4.4 L (6.3-8.2) g/dL Albumin 2.5 L (3.5-5.0) g/dL Procalcitonin (0.02-0.09) ng/mL Urine Protein (Negative) Urine Glucose (UA) (Negative) 06/23/23 06/23/23 06/23/23 Range/Units 21:10 21:17 23:00 WBC (3.8-10.6) k/uL RDW (11.5-15.5) % Neutrophils # (1.3-7.7) k/uL Lymphocytes # (1.0-4.8) k/uL APTT (22.0-30.0) sec Sodium (137-145) mmol/L BUN (9-20) mg/dL Creatinine (0.66-1.25) mg/dL Glucose (74-99) mg/dL POC Glucose (mg/dL) 227 H (70-110) mg/dL Plasma Lactic Acid Gabriel 4.0 H* (0.7-2.0) mmol/L Calcium (8.4-10.2) mg/dL ALT (4-49) U/L Alkaline Phosphatase (38-126) U/L Total Protein (6.3-8.2) g/dL Albumin (3.5-5.0) g/dL Procalcitonin (0.02-0.09) ng/mL Urine Protein Trace H (Negative) Urine Glucose (UA) 2+ H (Negative) 06/24/23 06/24/23 06/24/23 Range/Units 01:40 04:23 05:12 WBC (3.8-10.6) k/uL RDW (11.5-15.5) % Neutrophils # (1.3-7.7) k/uL Lymphocytes # (1.0-4.8) k/uL APTT (22.0-30.0) sec Sodium (137-145) mmol/L BUN (9-20) mg/dL Creatinine (0.66-1.25) mg/dL Glucose (74-99) mg/dL POC Glucose (mg/dL) 212 H (70-110) mg/dL Plasma Lactic Acid Gabriel 3.4 H* 3.6 H* (0.7-2.0) mmol/L Calcium (8.4-10.2) mg/dL ALT (4-49) U/L Alkaline Phosphatase (38-126) U/L Total Protein (6.3-8.2) g/dL Albumin (3.5-5.0) g/dL Procalcitonin (0.02-0.09) ng/mL Urine Protein (Negative) Urine Glucose (UA) (Negative) 06/24/23 06/24/23 06/24/23 Range/Units 07:44 09:38 09:38 WBC (3.8-10.6) k/uL RDW (11.5-15.5) % Neutrophils # (1.3-7.7) k/uL Lymphocytes # (1.0-4.8) k/uL APTT (22.0-30.0) sec Sodium (137-145) mmol/L BUN (9-20) mg/dL Creatinine (0.66-1.25) mg/dL Glucose (74-99) mg/dL POC Glucose (mg/dL) 168 H (70-110) mg/dL Plasma Lactic Acid Gabriel 4.4 H* (0.7-2.0) mmol/L Calcium (8.4-10.2) mg/dL ALT (4-49) U/L Alkaline Phosphatase (38-126) U/L Total Protein (6.3-8.2) g/dL Albumin (3.5-5.0) g/dL Procalcitonin 0.17 H (0.02-0.09) ng/mL Urine Protein (Negative) Urine Glucose (UA) (Negative) 06/24/23 06/24/23 Range/Units 12:39 13:14 WBC (3.8-10.6) k/uL RDW (11.5-15.5) % Neutrophils # (1.3-7.7) k/uL Lymphocytes # (1.0-4.8) k/uL APTT (22.0-30.0) sec Sodium (137-145) mmol/L BUN (9-20) mg/dL Creatinine (0.66-1.25) mg/dL Glucose (74-99) mg/dL POC Glucose (mg/dL) 185 H (70-110) mg/dL Plasma Lactic Acid Gabriel 4.4 H* (0.7-2.0) mmol/L Calcium (8.4-10.2) mg/dL ALT (4-49) U/L Alkaline Phosphatase (38-126) U/L Total Protein (6.3-8.2) g/dL Albumin (3.5-5.0) g/dL Procalcitonin (0.02-0.09) ng/mL Urine Protein (Negative) Urine Glucose (UA) (Negative) Assessment and Plan Plan: 1patient presented to hospital with generalized weakness which is likely multifactorial in this patient who was recently diagnosed with strep pneumo bacteremia and pneumonia in this patient did shows overall improvement before being discharged from the hospital no presenting mostly with debility and would likely need rehab placement clinically doubt any worsening pneumonia 2-we will give the patient Rocephin 2 g daily while inpatient and hopefully transition to oral antibiotic on discharge We will follow on clinical condition and cultures to further adjust medication if needed Thank you for this consultation we will follow the patient along with you Dictation was produced using [employer] dictation software. please excuse any grammatical, word or spelling errors. Time with Patient: Greater than 30
[2023-06-24] MEDS: IPRATROPIUM BROMIDE 0.06% NASAL SPRAY (15 ML) EA NOSTRIL SCH ×2 (22:50→22:52)
[2023-06-24] MEDS: FLUTICASONE 50MCG/SPRAY NASAL 16GM EA NOSTRIL SCH (22:56)
[2023-06-25] MEDS: DICLOFENAC SODIUM GEL 100 GM TUBE TOPICAL PRN ×2 (00:58→20:30)
[2023-06-25] MEDS: methylPREDNISolone SOD SUCCI 125 MG/2 ML VIAL IV SCH ×5 (01:04→23:19)
[2023-06-25] MEDS: ALPRAZolam 0.5 MG TAB PO PRN ×2 (04:17→10:08)
[2023-06-25 07:49] LABS: Anisocytosis Slight; Basophils % (A) 0 %; Eosinophils % (A) 0 %; HCT 38.8 % (39.0-53.0); HGB 12.6 gm/dL (13.0-17.5); Lymphocytes # (A) 0.2 k/uL (1.0-4.8); Lymphocytes % (A) 2 %; MCH 30.7 pg (25.0-35.0); MCHC 32.4 g/dL (31.0-37.0); MCV 94.8 fL (80.0-100.0); Mean Platelet Volume 8.7; Monocytes # (A) 0.3 k/uL (0-1.0); Monocytes % (A) 3 %; Neutrophils # (A) 10.9 k/uL (1.3-7.7); Neutrophils % (A) 95 %; Platelet Count 271 k/uL (150-450); RBC 4.09 m/uL (4.30-5.90); RDW 16.2 % (11.5-15.5); WBC 11.5 k/uL (3.8-10.6)
[2023-06-25 08:07] LABS: African American GFR (CKD) >90 (>60 ml/min/1.73 sqM); Anion Gap 2 mmol/L; Blood Urea Nitrogen 30 mg/dL (9-20); Calcium 8.4 mg/dL (8.4-10.2); Carbon Dioxide 34 mmol/L (22-30); Chloride 100 mmol/L (98-107); Glucose 153 mg/dL (74-99); Magnesium 2.5 mg/dL (1.6-2.3); Non-African American GFR(CKD) >90 (>60 ml/min/1.73 sqM); Potassium 4.4 mmol/L (3.5-5.1); Sodium 136 mmol/L (137-145)
--- NOTE | 2023-06-25 08:10 | P.PN ---
Subjective Progress Note Date: 06/25/23 Principal diagnosis: Shortness of breath. This is a 68-year-old white male with history of multiple medical problems, patient was just in the hospital yesterday, and he was readmitted today. Apparently the patient was admitted initially on 06/15/23, and he was in the hospital all along for almost 10 days, and we were not consulted on this patient all along. The patient did come in with extensive streptococcal pneumoniae pneumonia, and streptococcal bacteremia. Patient had ALLERGY to multiple antibiotics, and he was seen by infectious disease on consultation. All along the patient was on antibiotics, and according to the patient he never felt any improvement on along. Nonetheless the patient was discharged home on , and he was readmitted basically the same day. A is here today complaining of shortness of breath, cough, wheezing, and not feeling well looking back at his discharge summary, patient clearly had strep bacteremia, acute on chronic hypoxic respiratory failure, sepsis, COPD exacerbation, paroxysmal atrial fibrillation, hypertension, chronic diastolic congestive heart failure, type 2 diabetes, and prior history of pulmonary embolism as well as obstructive sleep apnea, neuropathy, and spinal stenosis. Patient reports that upon going home he was feeling very tired, debilitated, and he could not do much of anything, he was profoundly weak, and very short of breath. He also felt that his heart was racing all the time. Upon reevaluation the ER, patient was noted to be in atrial fibrillation with RVR, placed on Cardizem drip, and we were asked to see him on consultation this time chest x-ray continues to show bilateral interstitial infiltrates, no pleural effusions, the findings could be findings of postinflammatory changes from his recent extensive pneumonia or could be findings of mild interstitial edema. Nonetheless comparing the chest x-ray on this admission to his last admission there is a significant improvement and side believe the findings are most likely postinflammatory in nature. Progress note dated 06/25/2023. 68-year-old male with history of multiple medical problems, was recently inpatient, with extensive streptococcal pneumoniae ammonia, and bacteremia. Would not consulted on his initial admission. He was readmitted to the hospital, after being discharged home on June 23. He came in complaining of shortness of breath, cough, wheezing, and generally just not feeling well. The patient is seen today in the emergency department, room 23. The patient has a history of multiple medical problems including paroxysmal atrial fibrillation, COPD, sleep apnea, and pulmonary embolism. I see him in the office, on a regular basis. Currently, the patient's on room air. Is not receiving any IV fluids. He was initially sleeping when I first entered the room. He does not appear to be having any respiratory difficulty or distress. White count 11.5, hemoglobin 12.6, hematocrit 38.8, and platelet count is normal. Most recent lactic acid was down below 2, at 1.9. Chest x-ray shows bilateral infiltrates, right greater than left. Currently, the patient's on azithromycin, and Rocephin. Objective - Vital Signs Vital signs: Vital Signs Temp 97.0 F L 06/25/23 07:44 Pulse 69 06/25/23 07:44 Resp 20 06/25/23 07:44 BP 116/86 06/25/23 07:44 Pulse Ox 94 L 06/25/23 07:44 FiO2 Intake & Output 06/24/23 06/25/23 06/25/23 18:59 06:59 18:59 Intake Total 530 240 Output Total 450 650 Balance 80 240 -650 Intake: IV 10 Invasive Line 1 10 Intake, IV Titration 400 Amount Azithromycin 500 mg In 250 Sodium Chloride 0.9% 250 ml @ 250 mls/hr IVPB DAILY@2200 [facility] Rx#: [id number] Piperacillin-Tazobactam 3 100 .375 gm In Sodium Chloride 0.9% 100 ml @ 25 mls/hr IVPB Q8HR [facility] Rx# :[id number] cefTRIAXone 2 gm In 50 Sodium Chloride 0.9% 50 ml @ 100 mls/hr IVPB Q24HR [facility] Rx#:[id number] Oral 120 240 Output: Urine 450 650 Other: Voiding Method Toilet Urinal # Voids 1 - Exam No acute distress, oriented 3. No respiratory distress. Currently on room air. Laying on his right side, initially asleep. HEENT examination is grossly unremarkable. Mucous membranes are moist. No oral lesions. Neck supple. Full range of motion. No adenopathy thyromegaly or neck vein distention. Cardiovascular examination reveals regular rhythm rate. S1-S2 normal. No S3 or S4. No discernible murmur noted. Heart sounds are distant. Heart rate 70 bpm. Lungs reveal scattered rhonchi and crackles. Breath sounds equal. No wheezes. Room air saturation 94-95%. Abdomen is obese. Abdomen is soft. Bowel sounds are noted. No masses or tenderness. Extremities are intact. No cyanosis clubbing or edema. Skin is without rash or lesion. Neurologic examination is brief but nonfocal. - Labs CBC & Chem 7: 06/25/23 07:13 06/23/23 21:10 Labs: Abnormal Lab Results - Last 24 Hours (Table) 06/24/23 06/24/23 06/24/23 Range/Units 09:38 09:38 12:39 WBC (3.8-10.6) k/uL RBC (4.30-5.90) m/uL Hgb (13.0-17.5) gm/dL Hct (39.0-53.0) % RDW (11.5-15.5) % Neutrophils # (1.3-7.7) k/uL Lymphocytes # (1.0-4.8) k/uL POC Glucose (mg/dL) 185 H (70-110) mg/dL Plasma Lactic Acid Gabriel 4.4 H* (0.7-2.0) mmol/L Procalcitonin 0.17 H (0.02-0.09) ng/mL 06/24/23 06/24/23 06/24/23 Range/Units 13:14 16:23 16:57 WBC (3.8-10.6) k/uL RBC (4.30-5.90) m/uL Hgb (13.0-17.5) gm/dL Hct (39.0-53.0) % RDW (11.5-15.5) % Neutrophils # (1.3-7.7) k/uL Lymphocytes # (1.0-4.8) k/uL POC Glucose (mg/dL) 143 H (70-110) mg/dL Plasma Lactic Acid Gabriel 4.4 H* 2.9 H* (0.7-2.0) mmol/L Procalcitonin (0.02-0.09) ng/mL 06/24/23 06/24/23 06/24/23 Range/Units 19:04 21:21 21:58 WBC (3.8-10.6) k/uL RBC (4.30-5.90) m/uL Hgb (13.0-17.5) gm/dL Hct (39.0-53.0) % RDW (11.5-15.5) % Neutrophils # (1.3-7.7) k/uL Lymphocytes # (1.0-4.8) k/uL POC Glucose (mg/dL) 161 H (70-110) mg/dL Plasma Lactic Acid Gabriel 3.1 H* 2.2 H* (0.7-2.0) mmol/L Procalcitonin (0.02-0.09) ng/mL 06/25/23 Range/Units 07:13 WBC 11.5 H (3.8-10.6) k/uL RBC 4.09 L (4.30-5.90) m/uL Hgb 12.6 L (13.0-17.5) gm/dL Hct 38.8 L (39.0-53.0) % RDW 16.2 H (11.5-15.5) % Neutrophils # 10.9 H (1.3-7.7) k/uL Lymphocytes # 0.2 L (1.0-4.8) k/uL POC Glucose (mg/dL) (70-110) mg/dL Plasma Lactic Acid Gabriel (0.7-2.0) mmol/L Procalcitonin (0.02-0.09) ng/mL Assessment and Plan Assessment: Shortness of breath, multifactorial, in part related to paroxysmal atrial fibrillation/RVR, bilateral pneumonia, and possible postinflammatory changes. Acute streptococcal pneumonia, streptococcal bacteremia, with recent admission. Acute COPD exacerbation. Bicuspid aortic valve, and aortic stenosis. Possible underlying CHF. Benign essential hypertension. Mild pulmonary hypertension. Prior history of GI bleed. Morbid obesity. History of pulmonary embolism. History of gastroesophageal reflux disease, with previous Jim fundoplication. History of bowel resection. Obstructive sleep apnea syndrome. Plan: Plan dated 06/25/2023. The patient continues with supportive measures, and antibiotics, as per infectious diseases. The patient had a recent admission to the hospital, with streptococcal pneumonia and streptococcal bacteremia. The patient will continue on his factor X a inhibitor, Lasix, updrafts, Solu-Medrol, and GI prophylaxis. Labs, x-rays, and medications are all reviewed. The patient's overall prognosis remains guarded. We will continue to follow the patient and make recommendations along the way. Time with Patient: Less than 30
[2023-06-25 08:49] LABS: Glucose,Whole Blood 154 mg/dL (70-110)
[2023-06-25] MEDS: ALBUTEROL NEBULIZED 2.5 MG/3 ML INHALATION SCH ×4 (09:16→21:22)
[2023-06-25] MEDS: SYMBICORT 80-4.5 MCG INHALER INHALATION SCH ×2 (09:16→21:25)
[2023-06-25] MEDS: INSULIN ASPART (NovoLOG) 100 UNIT/ML VIAL SQ SCH ×4 (09:57→20:24)
[2023-06-25] MEDS: APIXABAN 2.5 MG TABLET PO SCH ×2 (09:58→20:23)
[2023-06-25] MEDS: DIGOXIN 125 MCG TAB PO SCH (09:58)
[2023-06-25] MEDS: PANTOPRAZOLE 40 MG TABLET PO SCH (09:58)
[2023-06-25] MEDS: FUROSEMIDE 20 MG TAB PO SCH ×2 (09:59→20:23)
[2023-06-25] MEDS: SERTRALINE 100 MG TAB PO SCH (09:59)
[2023-06-25] MEDS: LACTOBACILLUS ACIDOPHILUS/PECT 1 EACH CAPSULE PO SCH (09:59)
[2023-06-25] MEDS: DILTIAZEM CD 240 MG CAP.ER.24H PO SCH (09:59)
[2023-06-25] MEDS: FERROUS SULFATE 325 MG TAB PO SCH (09:59)
[2023-06-25] MEDS: PREGABALIN 100 MG CAP PO SCH ×2 (10:08→20:23)
--- NOTE | 2023-06-25 11:40 | P.PN ---
Subjective HISTORY OF PRESENT ILLNESS: The patient is a 68-year-old male who was recently admitted with influenza A and A. fib with RVR. He was discharged home on digoxin and diltiazem. He returned to the emergency room with worsening weakness and fatigue. Cardiology was again consulted for atrial fibrillation. EKG showed heart rate in the 1 teens. The patient subsequently converted back to sinus mechanism. DIAGNOSTICS: EKG shows atrial fibrillation with heart rate 117 bpm Chest x-ray shows similar diffuse interstitial and patchy infiltrates, right greater than left Lab data: WBC 18.1, hemoglobin 13.7, hematocrit 41.9, platelet 294, sodium 136, potassium 4.1, BUN 41, creatinine 0.64, lactate 4.0, 4.4, magnesium 2.3, AST 54, ALT 63, ALP 170, troponin 0.01, BNP 1770 06/25/2023 Patient examined this morning in the emergency room. Patient currently denies chest pain or pressure. She denies shortness of breath. Bedside telemetry reveals sinus mechanism with a heart rate in the 60s. Vital signs are stable. His recent echocardiogram performed in May 2023 revealed ejection fraction 55-60% with bicuspid aortic valve, moderate aortic stenosis, dilated aortic root measuring 4.5 cm and moderate LVH PHYSICAL EXAM: VITAL SIGNS: Reviewed. GENERAL: Well-developed in no acute distress. NECK: Supple. No JVD or thyromegaly LUNGS: Respirations even and unlabored. Lungs essentially clear to auscultation bilaterally. HEART: Regular rate and rhythm. S1 and S2 heard. EXTREMITIES: Normal range of motion. No clubbing or cyanosis. Peripheral pulses intact. No lower extremity edema ASSESSMENT: Shortness of breath, secondary to community-acquired pneumonia Recent admission secondary to streptococcal pneumonia with streptococcal bacteremia Acute COPD exacerbation Paroxysmal atrial fibrillation with RVR, currently maintaining sinus mechanism Bicuspid aortic valve with moderate aortic stenosis Dilated aortic root, measuring 4.5 cm on echocardiogram Diabetes Hypertension Dyslipidemia PLAN: No need to repeat echocardiogram as this was performed in May 2023 Continue current cardiac medications Continue telemetry monitoring Patient is currently stable from a cardiac perspective Further recommendations pending patient's course Nurse practitioner note has been reviewed by physician. Signing provider agrees with the documented findings, assessment, and plan of care. Objective - Vital Signs Vital signs: Vital Signs Temp 97.0 F L 06/25/23 07:44 Pulse 96 06/25/23 09:27 Resp 20 06/25/23 07:44 BP 116/86 06/25/23 07:44 Pulse Ox 94 L 06/25/23 07:44 FiO2 Intake & Output 06/24/23 06/25/23 06/25/23 18:59 06:59 18:59 Intake Total 530 240 Output Total 450 650 Balance 80 240 -650 Intake: IV 10 Invasive Line 1 10 Intake, IV Titration 400 Amount Azithromycin 500 mg In 250 Sodium Chloride 0.9% 250 ml @ 250 mls/hr IVPB DAILY@2200 [facility] Rx#: [id number] Piperacillin-Tazobactam 3 100 .375 gm In Sodium Chloride 0.9% 100 ml @ 25 mls/hr IVPB Q8HR [facility] Rx# :[id number] cefTRIAXone 2 gm In 50 Sodium Chloride 0.9% 50 ml @ 100 mls/hr IVPB Q24HR [facility] Rx#:[id number] Oral 120 240 Output: Urine 450 650 Other: Voiding Method Toilet Toilet Urinal Urinal # Voids 1 - Labs CBC & Chem 7: 06/25/23 07:13 06/25/23 07:13 Labs: Abnormal Lab Results - Last 24 Hours (Table) 06/24/23 06/24/23 06/24/23 Range/Units 09:38 12:39 13:14 WBC (3.8-10.6) k/uL RBC (4.30-5.90) m/uL Hgb (13.0-17.5) gm/dL Hct (39.0-53.0) % RDW (11.5-15.5) % Neutrophils # (1.3-7.7) k/uL Lymphocytes # (1.0-4.8) k/uL Sodium (137-145) mmol/L Carbon Dioxide (22-30) mmol/L BUN (9-20) mg/dL Creatinine (0.66-1.25) mg/dL Glucose (74-99) mg/dL POC Glucose (mg/dL) 185 H (70-110) mg/dL Hemoglobin A1c (<=6.0) % Plasma Lactic Acid Gabriel 4.4 H* (0.7-2.0) mmol/L Magnesium (1.6-2.3) mg/dL Procalcitonin 0.17 H (0.02-0.09) ng/mL 06/24/23 06/24/23 06/24/23 Range/Units 16:23 16:57 19:04 WBC (3.8-10.6) k/uL RBC (4.30-5.90) m/uL Hgb (13.0-17.5) gm/dL Hct (39.0-53.0) % RDW (11.5-15.5) % Neutrophils # (1.3-7.7) k/uL Lymphocytes # (1.0-4.8) k/uL Sodium (137-145) mmol/L Carbon Dioxide (22-30) mmol/L BUN (9-20) mg/dL Creatinine (0.66-1.25) mg/dL Glucose (74-99) mg/dL POC Glucose (mg/dL) 143 H (70-110) mg/dL Hemoglobin A1c (<=6.0) % Plasma Lactic Acid [place] 2.9 H* 3.1 H* (0.7-2.0) mmol/L Magnesium (1.6-2.3) mg/dL Procalcitonin (0.02-0.09) ng/mL 06/24/23 06/24/23 06/25/23 Range/Units 21:21 21:58 07:13 WBC (3.8-10.6) k/uL RBC (4.30-5.90) m/uL Hgb (13.0-17.5) gm/dL Hct (39.0-53.0) % RDW (11.5-15.5) % Neutrophils # (1.3-7.7) k/uL Lymphocytes # (1.0-4.8) k/uL Sodium (137-145) mmol/L Carbon Dioxide (22-30) mmol/L BUN (9-20) mg/dL Creatinine (0.66-1.25) mg/dL Glucose (74-99) mg/dL POC Glucose (mg/dL) 161 H (70-110) mg/dL Hemoglobin A1c 6.2 H (<=6.0) % Plasma Lactic Acid Gabriel 2.2 H* (0.7-2.0) mmol/L Magnesium (1.6-2.3) mg/dL Procalcitonin (0.02-0.09) ng/mL 06/25/23 06/25/23 06/25/23 Range/Units 07:13 07:13 08:48 WBC 11.5 H (3.8-10.6) k/uL RBC 4.09 L (4.30-5.90) m/uL Hgb 12.6 L (13.0-17.5) gm/dL Hct 38.8 L (39.0-53.0) % RDW 16.2 H (11.5-15.5) % Neutrophils # 10.9 H (1.3-7.7) k/uL Lymphocytes # 0.2 L (1.0-4.8) k/uL Sodium 136 L (137-145) mmol/L Carbon Dioxide 34 H (22-30) mmol/L BUN 30 H (9-20) mg/dL Creatinine 0.60 L (0.66-1.25) mg/dL Glucose 153 H (74-99) mg/dL POC Glucose (mg/dL) 154 H (70-110) mg/dL Hemoglobin A1c (<=6.0) % Plasma Lactic Acid Gabriel (0.7-2.0) mmol/L Magnesium 2.5 H (1.6-2.3) mg/dL Procalcitonin (0.02-0.09) ng/mL Microbiology - Last 24 Hours (Table) 06/24/23 15:35 Gram Stain - Preliminary Sputum
[2023-06-25 12:12] LABS: Glucose,Whole Blood 216 mg/dL (70-110)
--- NOTE | 2023-06-25 16:35 | P.PN ---
Subjective Progress Note Date: 06/25/23 No new complaints. CM working on rehab placement Gen: awake, alert HEENT: normocephalic, atraumatic, good hearing acuity, moist mucous membranes Resp: good air exchange, breathing comfortably with no accessory muscle use CVS: good distal perfusion x 4, GI: soft, NTTP, ND : no SPT, no CVAT, melo catheter not present MSK: no pitting edema, no clubbing Neuro: non-focal, moving all extremities Psych: cooperative, euthymic mood Hospital course: Patient is a 68 yo male with a know A fib anticoagulated with eliquis, COPD on home O2 as needed, DM2, GERD, HTN, HLD, and multiple toehr comorbid conditions who presented to the ED with complaints of shortness of breath and fevers and was discharge on 06/23 after treatment for multifocal pneumonia, strep bacteremia, and AFib with RVR returned to the ER yesterday for ongoing generalized weakness and chills. In the ER, patient was afebrile, 80/67, HR 140, 91% on 2L NC. CBC demonstrated leukocytosis to 18.1. BMP was unremarkable. BNP was 1770. [place] was 4.0, then trended to 4.4. Of note Assessment/Plan: Sepsis secondary to Community acquired multifocal pneumonia, likely strep Strep Bacteremia COPD with Chronic hypoxic respiratory failure, uses as needed oxygen at home - ID, pulmonology consult - Continue ceftriaxone 2gm q24h (day 12/25) - [place] 4 times daily as needed, and Symbicort 2 puffs twice daily - solumedrol 60mg q6h - Continue Singular - Wean O2 as able-- patient has O2 at home - Mucinex 1200 mg PO BID - [place] to BID prn Generalized Weakness Constipation -Colace 100 mg twice daily -PT/OT consult, anticipate d/c to SNF Paroxysmal Atrial fibrillation with rapid ventricular response, Bicuspid aortic valve with moderate Dilated aortic root Hypertension Dyslipidemia Diastolic Congestive heart failure with mild exacerbation, EF of 50-55% - Cardiology consult - Cardizem to 240 mg daily and digoxin 125mcg - Lasix 20 mg PO BID - Continue with Eliquis 2.5 mg twice daily Diabetes mellitus type 2 -Hold metformin -Sliding-scale insulin -A1c 5.8 Chronic: See arthritis Prior pulmonary embolism Obstructive sleep apnea Neuropathy Spinal stenosis DVT prophylaxis: Eliquis Anticipated discharge date: TBD Anticipated discharge place: [facility] This dictation was prepared using [employer] voice recognition software. Though every attempt is made to correct errors during dictation some may still exist. Objective - Vital Signs Vital signs: Vital Signs Temp 98.0 F 06/25/23 16:00 Pulse 69 06/25/23 16:00 Resp 17 06/25/23 16:00 BP 124/71 06/25/23 16:00 Pulse Ox 93 L 06/25/23 16:00 FiO2 Intake & Output 06/24/23 06/25/23 06/25/23 18:59 06:59 18:59 Intake Total 530 240 500 Output Total 450 1150 Balance 80 240 -650 Intake: IV 10 Invasive Line 1 10 Intake, IV Titration 400 Amount Azithromycin 500 mg In 250 Sodium Chloride 0.9% 250 ml @ 250 mls/hr IVPB DAILY@2200 [facility] Rx#: [id number] Piperacillin-Tazobactam 3 100 .375 gm In Sodium Chloride 0.9% 100 ml @ 25 mls/hr IVPB Q8HR [facility] Rx# :[id number] cefTRIAXone 2 gm In 50 Sodium Chloride 0.9% 50 ml @ 100 mls/hr IVPB Q24HR [facility] Rx#:[id number] Oral 120 240 500 Output: Urine 450 1150 Other: Voiding Method Toilet Toilet Urinal Urinal # Voids 1 - Labs CBC & Chem 7: 06/25/23 07:13 06/25/23 07:13 Labs: Abnormal Lab Results - Last 24 Hours (Table) 06/24/23 06/24/23 06/24/23 Range/Units 16:23 16:57 19:04 WBC (3.8-10.6) k/uL RBC (4.30-5.90) m/uL Hgb (13.0-17.5) gm/dL Hct (39.0-53.0) % RDW (11.5-15.5) % Neutrophils # (1.3-7.7) k/uL Lymphocytes # (1.0-4.8) k/uL Sodium (137-145) mmol/L Carbon Dioxide (22-30) mmol/L BUN (9-20) mg/dL Creatinine (0.66-1.25) mg/dL Glucose (74-99) mg/dL POC Glucose (mg/dL) 143 H (70-110) mg/dL Hemoglobin A1c (<=6.0) % Plasma Lactic Acid Gabriel 2.9 H* 3.1 H* (0.7-2.0) mmol/L Magnesium (1.6-2.3) mg/dL 06/24/23 06/24/23 06/25/23 Range/Units 21:21 21:58 07:13 WBC (3.8-10.6) k/uL RBC (4.30-5.90) m/uL Hgb (13.0-17.5) gm/dL Hct (39.0-53.0) % RDW (11.5-15.5) % Neutrophils # (1.3-7.7) k/uL Lymphocytes # (1.0-4.8) k/uL Sodium (137-145) mmol/L Carbon Dioxide (22-30) mmol/L BUN (9-20) mg/dL Creatinine (0.66-1.25) mg/dL Glucose (74-99) mg/dL POC Glucose (mg/dL) 161 H (70-110) mg/dL Hemoglobin A1c 6.2 H (<=6.0) % Plasma Lactic Acid Gabriel 2.2 H* (0.7-2.0) mmol/L Magnesium (1.6-2.3) mg/dL 06/25/23 06/25/23 06/25/23 Range/Units 07:13 07:13 08:48 WBC 11.5 H (3.8-10.6) k/uL RBC 4.09 L (4.30-5.90) m/uL Hgb 12.6 L (13.0-17.5) gm/dL Hct 38.8 L (39.0-53.0) % RDW 16.2 H (11.5-15.5) % Neutrophils # 10.9 H (1.3-7.7) k/uL Lymphocytes # 0.2 L (1.0-4.8) k/uL Sodium 136 L (137-145) mmol/L Carbon Dioxide 34 H (22-30) mmol/L BUN 30 H (9-20) mg/dL Creatinine 0.60 L (0.66-1.25) mg/dL Glucose 153 H (74-99) mg/dL POC Glucose (mg/dL) 154 H (70-110) mg/dL Hemoglobin A1c (<=6.0) % Plasma Lactic Acid Gabriel (0.7-2.0) mmol/L Magnesium 2.5 H (1.6-2.3) mg/dL 06/25/23 Range/Units 12:06 WBC (3.8-10.6) k/uL RBC (4.30-5.90) m/uL Hgb (13.0-17.5) gm/dL Hct (39.0-53.0) % RDW (11.5-15.5) % Neutrophils # (1.3-7.7) k/uL Lymphocytes # (1.0-4.8) k/uL Sodium (137-145) mmol/L Carbon Dioxide (22-30) mmol/L BUN (9-20) mg/dL Creatinine (0.66-1.25) mg/dL Glucose (74-99) mg/dL POC Glucose (mg/dL) 216 H (70-110) mg/dL Hemoglobin A1c (<=6.0) % Plasma Lactic Acid Gabriel (0.7-2.0) mmol/L Magnesium (1.6-2.3) mg/dL Microbiology - Last 24 Hours (Table) 06/23/23 23:08 Blood Culture - Preliminary Blood 06/23/23 23:00 Blood Culture - Preliminary Blood 06/24/23 15:35 Gram Stain - Preliminary Sputum
[2023-06-25 16:54] LABS: Glucose,Whole Blood 148 mg/dL (70-110)
[2023-06-25] MEDS ORDERED: NITROGLYCERIN SL TABS 0.4 MG TAB SUBLINGUAL ONE (18:58)
[2023-06-25 19:41] LABS: Glucose,Whole Blood 194 mg/dL (70-110)
[2023-06-25] MEDS: PRAVASTATIN SODIUM 40 MG TAB PO SCH (20:23)
[2023-06-25] MEDS: MONTELUKAST 10 MG TAB PO SCH (20:23)
[2023-06-25] MEDS: FLUTICASONE 50MCG/SPRAY NASAL 16GM EA NOSTRIL SCH (21:03)
[2023-06-26] MEDS: HYDROcodone/APAP 5-325MG 1 EACH TAB PO PRN (01:05)
[2023-06-26 05:39] LABS: Glucose,Whole Blood 159 mg/dL (70-110)
[2023-06-26] MEDS: PANTOPRAZOLE 40 MG TABLET PO SCH (06:32)
[2023-06-26] MEDS: INSULIN ASPART (NovoLOG) 100 UNIT/ML VIAL SQ SCH ×2 (06:32→12:26)
[2023-06-26] MEDS: methylPREDNISolone SOD SUCCI 125 MG/2 ML VIAL IV SCH ×2 (06:32→12:25)
[2023-06-26] MEDS: ALBUTEROL NEBULIZED 2.5 MG/3 ML INHALATION SCH ×2 (08:43→12:38)
[2023-06-26] MEDS: SYMBICORT 80-4.5 MCG INHALER INHALATION SCH (08:44)
[2023-06-26] MEDS: FERROUS SULFATE 325 MG TAB PO SCH (09:07)
[2023-06-26] MEDS: DIGOXIN 125 MCG TAB PO SCH (09:07)
[2023-06-26] MEDS: LACTOBACILLUS ACIDOPHILUS/PECT 1 EACH CAPSULE PO SCH (09:07)
[2023-06-26] MEDS: APIXABAN 2.5 MG TABLET PO SCH (09:07)
[2023-06-26] MEDS: PREGABALIN 100 MG CAP PO SCH (09:07)
[2023-06-26] MEDS: SERTRALINE 100 MG TAB PO SCH (09:07)
[2023-06-26] MEDS: DILTIAZEM CD 240 MG CAP.ER.24H PO SCH (09:07)
[2023-06-26] MEDS: FUROSEMIDE 20 MG TAB PO SCH (09:07)
[2023-06-26] MEDS ORDERED: FUROSEMIDE 10 MG/ML 4 ML VIAL IV STA (09:45)
[2023-06-26] MEDS ORDERED: DOCUSATE 100 MG CAP PO PRN (09:50)
[2023-06-26 10:27] LABS: Anisocytosis Slight; Basophils % (A) 0 %; Eosinophils % (A) 0 %; HCT 41.8 % (39.0-53.0); HGB 13.6 gm/dL (13.0-17.5); Lymphocytes # (A) 0.3 k/uL (1.0-4.8); Lymphocytes % (A) 2 %; MCH 31.2 pg (25.0-35.0); MCHC 32.5 g/dL (31.0-37.0); MCV 95.8 fL (80.0-100.0); Mean Platelet Volume 8.9; Monocytes # (A) 0.5 k/uL (0-1.0); Monocytes % (A) 4 %; Neutrophils % (A) 94 %; Platelet Count 310 k/uL (150-450); RBC 4.36 m/uL (4.30-5.90); RDW 16.1 % (11.5-15.5); WBC 11.8 k/uL (3.8-10.6)
[2023-06-26 11:03] LABS: African American GFR (CKD) >90 (>60 ml/min/1.73 sqM); Anion Gap 6 mmol/L; Blood Urea Nitrogen 28 mg/dL (9-20); Calcium 8.7 mg/dL (8.4-10.2); Carbon Dioxide 34 mmol/L (22-30); Chloride 98 mmol/L (98-107); Glucose 148 mg/dL (74-99); Magnesium 2.5 mg/dL (1.6-2.3); Non-African American GFR(CKD) >90 (>60 ml/min/1.73 sqM); Potassium 4.4 mmol/L (3.5-5.1); Sodium 138 mmol/L (137-145)
[2023-06-26 11:26] VITALS: RESP 16; TEMP 97.8
[2023-06-26 11:38] LABS: Glucose,Whole Blood 158 mg/dL (70-110)
--- NOTE | 2023-06-26 13:24 | P.DS ---
Providers Date of admission: 06/23/23 23:15 Expected date of discharge: 06/26/23 Attending physician: Ramonita Carvalho MD Consults: 06/23/23 23:13 Consult Physician Routine Consulting Provider: Maura Johnson Consult Reason/Comments: pna,copd Do you want consulting provider notified?: Yes 06/23/23 23:14 Consult Physician Routine Consulting Provider: Deja Yoon Consult Reason/Comments: [email or web address] Do you want consulting provider notified?: Yes 06/24/23 09:15 Consult Physician Routine Consulting Provider: Jeremiah Shirley Consult Reason/Comments: multifocal pneumonia Do you want consulting provider notified?: Yes Primary care physician: Wei Henry Hospital Course: Discharge Diagnosis: Weakness and debility related to recent sepsis and strep bacteremia from community-acquired multifocal pneumonia Recent strep bacteremia Acute exacerbation of COPD with chronic hypoxic respiratory failure Recent community-acquired pneumonia, likely strep Constipation Paroxysmal Atrial fibrillation with rapid ventricular response, Bicuspid aortic valve with moderate Dilated aortic root Hypertension Dyslipidemia Diastolic Congestive heart failure with mild exacerbation, EF of 50-55% Diabetes mellitus type 2 Chronic: Prior pulmonary embolism Obstructive sleep apnea Neuropathy Spinal stenosis Hospital Course: Patient is a 68-year-old male with known A-fib anticoagulated with Eliquis, [place] at home O2 as needed, diabetes, GERD, hypertension, dyslipidemia, and multiple other comorbid conditions who presented to the emergency department with weakness. Patient was hospitalized here from 06/15 through 06/23 due to multifocal pneumonia with strep bacteremia. He was discharged home and represented the same day as he was too weak to function at home. On presentation he did have some atrial fibrillation with rapid ventricular response which was controlled orally, IV Cardizem had been ordered but never initiated. He was resumed on IV antibiotics. He was seen by pulmonary and cardiology. He received a one-time dose of IV Lasix. He was seen by physical and Occupational Therapy who felt he could benefit from rehab. Arrangements were made for the patient to go to [facility]. Follow-up: Dr. Henry on discharge from rehab. Dr. Lainezaf in 1 to 2 weeks. He will complete 4 more days of ceftin. He will complete 5 days of Prednisone 50 mg. Repeat CBC and BMP in 3 days. Patient seen and examined at bedside. He has some constipation. He denies any significant shortness of breath. He was just overall feeling weak and like he could not care for himself at home. Vital signs reviewed and stable. General: Nontoxic, no distress, appears at stated age Cardiovascular: S1S2 reg, no murmur, positive posterior tibial pulse bilateral, Lungs: Decreased breath sounds bilateral, no rhonchi, no rales, no accessory muscle use Abdominal: Soft, nontender to palpation, no guarding, no appreciable organomegaly Ext: No gross muscle atrophy, trace edema bilateral lower extremities, no contractures Neuro: CN II-XI grossly intact, no focal neuro deficits Psych: Alert, oriented, appropriate affect A total of 35 minutes of time were spent preparing this complex discharge summary. Patient was discharged on 06/26/23. This dictation was prepared using [email or web address] voice recognition software. Though every attempt is made to correct errors during dictation some may still exist. Patient Condition at Discharge: Stable Plan - Discharge Summary Discharge Rx Participant: No New Discharge Prescriptions: New predniSONE 50 mg PO DAILY #5 tab Docusate [Colace] 100 mg PO DAILY PRN cap PRN Reason: Constipation Continue Montelukast Sodium [Singulair] 10 mg PO HS Potassium Chloride [K-Tab ER] 20 meq PO BID Furosemide [Lasix] 20 mg PO BID Betamethasone Dipropionate [Betamethasone Dipropionate 0.05% Cream] 1 applic TOPICAL BID PRN PRN Reason: Skin Irritation Fluticasone Nasal [place] [Flonase Nasal [place]] 2 spr EA NOSTRIL HS Ipratropium-Albuterol Nebulize [Duoneb 0.5 mg-3 mg/3 ml Soln] 3 ml INHALATION RT-QID PRN PRN Reason: Shortness Of Breath Ipratropium [place] 0.06%Nasal [Atrovent Nasal 0.06%] 2 spray EA NOSTRIL DAILY Ketoconazole 2% Shampoo [Nizoral] 1 applic TOPICAL DAILY PRN PRN Reason: RASH/DANDRUFF Formoterol Fumarate [Perforomist] 20 mcg INHALATION RT-BID PRN PRN Reason: Shortness Of Breath Ferrous Sulfate [Feosol] 325 mg PO DAILY #30 tab Diltiazem Cd [Cardizem CD] 240 mg PO DAILY #30 cap cefUROXime axetiL [Ceftin] 500 mg PO BID 4 Days #8 tab Digoxin [Lanoxin] 125 mcg PO DAILY #30 tab Pregabalin [Lyrica] 300 mg PO BID #6 cap traMADol HCL 100 mg PO Q6H PRN #12 tab PRN Reason: Pain Albuterol Sulfate [Ventolin HFA] 2 puff INHALATION RT-QID PRN PRN Reason: Shortness Of Breath Betamethasone Dipropionate [Betamethasone Diprop Augm Gel 0.05%] 1 applic TOPICAL DAILY PRN PRN Reason: Skin Irritation Diclofenac Sodium Gel [Voltaren 1% Gel] 1 applic TOPICAL QID PRN PRN Reason: Pain metFORMIN HCL [Glucophage] 1,000 mg PO BID Budesonide [Pulmicort] 0.5 mg INHALATION RT-BID PRN PRN Reason: Shortness Of Breath Fluticasone/Umeclidin/Vilanter [Trelegy Ellipta 200-62.5-25] 1 puff INHALATION RT-DAILY Pravastatin Sodium [Pravachol] 40 mg PO HS Sertraline [Zoloft] 100 mg PO DAILY Pantoprazole [Protonix] 40 mg PO AC-BRKFST #30 tab Apixaban [Eliquis] 2.5 mg PO BID HYDROcodone/APAP 5-325MG [[place] 5-325] 1 tab PO BID PRN #6 tab PRN Reason: Pain Discontinued predniSONE [Deltasone] See Taper PO DAILY Collagenase [Santyl Ointment] 1 applic TOPICAL DAILY PRN PRN Reason: WOUNDS Discharge Medication List Montelukast Sodium [Singulair] 10 mg PO HS 01/29/18 [History] Furosemide [Lasix] 20 mg PO BID 07/11/18 [History] Potassium Chloride [K-Tab ER] 20 meq PO BID 07/11/18 [History] Betamethasone Dipropionate [Betamethasone Dipropionate 0.05% Cream] 1 applic TOPICAL BID PRN 09/02/18 [History] Fluticasone Nasal [place] [Flonase Nasal [place]] 2 spr EA NOSTRIL HS 06/28/19 [History] Ipratropium-Albuterol Nebulize [Duoneb 0.5 mg-3 mg/3 ml Soln] 3 ml INHALATION RT-QID PRN 06/28/19 [History] Ipratropium [place] 0.06%Nasal [Atrovent Nasal 0.06%] 2 spray EA NOSTRIL DAILY 06/30/19 [History] Albuterol Sulfate [Ventolin HFA] 2 puff INHALATION RT-QID PRN 05/21/21 [History] Betamethasone Dipropionate [Betamethasone Diprop Augm Gel 0.05%] 1 applic TOPICAL DAILY PRN 05/21/21 [History] Diclofenac Sodium Gel [Voltaren 1% Gel] 1 applic TOPICAL QID PRN 05/21/21 [History] Ketoconazole 2% Shampoo [Nizoral] 1 applic TOPICAL DAILY PRN 05/21/21 [History] metFORMIN HCL [Glucophage] 1,000 mg PO BID 05/21/21 [History] Budesonide [Pulmicort] 0.5 mg INHALATION RT-BID PRN 01/01/23 [History] Fluticasone/Umeclidin/Vilanter [Trelegy Ellipta 200-62.5-25] 1 puff INHALATION RT-DAILY 01/01/23 [History] Formoterol Fumarate [Perforomist] 20 mcg INHALATION RT-BID PRN 01/01/23 [History] Pravastatin Sodium [Pravachol] 40 mg PO HS 01/01/23 [History] Sertraline [Zoloft] 100 mg PO DAILY 01/01/23 [History] Ferrous Sulfate [Feosol] 325 mg PO DAILY #30 tab 01/07/23 [Rx] Pantoprazole [Protonix] 40 mg PO AC-BRKFST #30 tab 01/07/23 [Rx] Apixaban [Eliquis] 2.5 mg PO BID 06/15/23 [History] Digoxin [Lanoxin] 125 mcg PO DAILY #30 tab 06/23/23 [Rx] Diltiazem Cd [Cardizem CD] 240 mg PO DAILY #30 cap 06/23/23 [Rx] cefUROXime axetiL [Ceftin] 500 mg PO BID 4 Days #8 tab 06/23/23 [Rx] Docusate [Colace] 100 mg PO DAILY PRN cap 06/26/23 [Rx] HYDROcodone/APAP 5-325MG [[place] 5-325] 1 tab PO BID PRN #6 tab 06/26/23 [Rx] Pregabalin [Lyrica] 300 mg PO BID #6 cap 06/26/23 [Rx] predniSONE 50 mg PO DAILY #5 tab 06/26/23 [Rx] traMADol HCL 100 mg PO Q6H PRN #12 tab 06/26/23 [Rx] Follow up Appointment(s)/Referral(s): Wei Henry DO [Primary Care Provider] - 1-2 days Activity/Diet/Wound Care/Special Instructions: Activity: As tolerated Diet: Heart Healthy, consistent carb, 1L fluid restriction Special Instructions: CBC and BMP in 3 days DX: Diuretic use, SHAD, bacteremia. Discharge Disposition: HOME SELF-CARE
--- NOTE | 2023-06-26 13:34 | P.PN ---
Subjective HISTORY OF PRESENT ILLNESS: The patient is a 68-year-old male who was recently admitted with influenza A and A. fib with RVR. He was discharged home on digoxin and diltiazem. He returned to the emergency room with worsening weakness and fatigue. Cardiology was again consulted for atrial fibrillation. EKG showed heart rate in the 1 teens. The patient subsequently converted back to sinus mechanism. DIAGNOSTICS: EKG shows atrial fibrillation with heart rate 117 bpm Chest x-ray shows similar diffuse interstitial and patchy infiltrates, right greater than left Lab data: WBC 18.1, hemoglobin 13.7, hematocrit 41.9, platelet 294, sodium 136, potassium 4.1, BUN 41, creatinine 0.64, lactate 4.0, 4.4, magnesium 2.3, AST 54, ALT 63, ALP 170, troponin 0.01, BNP 1770 06/25/2023 Patient examined this morning in the emergency room. Patient currently denies chest pain or pressure. She denies shortness of breath. Bedside telemetry reveals sinus mechanism with a heart rate in the 60s. Vital signs are stable. His recent echocardiogram performed in May 2023 revealed ejection fraction 55-60% with bicuspid aortic valve, moderate aortic stenosis, dilated aortic root measuring 4.5 cm and moderate LVH 06/26/2023 Patient examined this morning at the bedside. Patient denies chest pain or pr essure. He denies shortness of breath. He remains on oral diuretics. He does report lower extremity edema this morning. Vital signs are stable. PHYSICAL EXAM: VITAL SIGNS: Reviewed. GENERAL: Well-developed in no acute distress. NECK: Supple. No JVD or thyromegaly LUNGS: Respirations even and unlabored. Lungs essentially clear to auscultation bilaterally. HEART: Regular rate and rhythm. S1 and S2 heard. EXTREMITIES: Normal range of motion. No clubbing or cyanosis. Peripheral pulses intact. No lower extremity edema ASSESSMENT: Shortness of breath, secondary to community-acquired pneumonia Recent admission secondary to streptococcal pneumonia with streptococcal bacteremia Acute COPD exacerbation Paroxysmal atrial fibrillation with RVR, currently maintaining sinus mechanism Bicuspid aortic valve with moderate aortic stenosis Dilated aortic root, measuring 4.5 cm on echocardiogram Diabetes Hypertension Dyslipidemia PLAN: No need to repeat echocardiogram as this was performed in May 2023 Continue current cardiac medications Give a one-time dose of IV Lasix this morning and then continue oral diuretics Continue telemetry monitoring Patient is stable for discharge home today from a cardiac standpoint Nurse practitioner note has been reviewed by physician. Signing provider agrees with the documented findings, assessment, and plan of care. Objective - Vital Signs Vital signs: Vital Signs Temp 97.8 F 06/26/23 08:45 Pulse 72 06/26/23 12:48 Resp 16 06/26/23 08:45 BP 124/82 06/26/23 08:45 Pulse Ox 98 06/26/23 08:45 FiO2 Intake & Output 06/25/23 06/26/23 06/26/23 18:59 06:59 18:59 Intake Total 620 118 Output Total 1150 450 Balance -530 -450 118 Intake: Oral 620 118 Output: Urine 1150 450 Other: Voiding Method Toilet Toilet Toilet Urinal Urinal Urinal - Labs CBC & Chem 7: 06/26/23 09:39 06/26/23 09:38 Labs: Abnormal Lab Results - Last 24 Hours (Table) 06/25/23 06/25/23 06/26/23 Range/Units 16:51 19:39 05:38 WBC (3.8-10.6) k/uL RDW (11.5-15.5) % Neutrophils # (1.3-7.7) k/uL Lymphocytes # (1.0-4.8) k/uL Carbon Dioxide (22-30) mmol/L BUN (9-20) mg/dL Creatinine (0.66-1.25) mg/dL Glucose (74-99) mg/dL POC Glucose (mg/dL) 148 H 194 H 159 H (70-110) mg/dL Magnesium (1.6-2.3) mg/dL 06/26/23 06/26/23 06/26/23 Range/Units 09:38 09:39 11:36 WBC 11.8 H (3.8-10.6) k/uL RDW 16.1 H (11.5-15.5) % Neutrophils # 11.0 H (1.3-7.7) k/uL Lymphocytes # 0.3 L (1.0-4.8) k/uL Carbon Dioxide 34 H (22-30) mmol/L BUN 28 H (9-20) mg/dL Creatinine 0.56 L (0.66-1.25) mg/dL Glucose 148 H (74-99) mg/dL POC Glucose (mg/dL) 158 H (70-110) mg/dL Magnesium 2.5 H (1.6-2.3) mg/dL Microbiology - Last 24 Hours (Table) 06/23/23 23:08 Blood Culture - Preliminary Blood 06/23/23 23:00 Blood Culture - Preliminary Blood 06/24/23 15:35 Gram Stain - Preliminary Sputum
--- NOTE | 2023-06-26 15:11 | CDI ---
Documentation Clarification Form Date: From: Cristine Grossman Phone: [phone] Admit Date: 06/23/2023 11:15:00 PM Patient Name: Jaquan Shoemaker Visit Number: [id number] Discharge Date: ATTENTION: The Clinical Documentation Specialists (CDI) and [facility] Coding Staff appreciate your assistance in clarifying documentation. Please respond to the clarification below the line at the bottom and electronically sign. The CDI & [facility] Coding staff will review the response and follow-up if needed. Please note: Queries are made part of the Legal Health Record. If you have any questions, please contact the author of this message via ITS. Dr. Susan Gonzales Conflicting documentation has been found in the medical record. As attending physician, please provide clarification. "Sepsis secondary to Community acquired multifocal pneumonia" - Per Progress Note on 06/25 "recent sepsis and strep bacteremia from community-acquired multifocal pneumonia" - Per Discharge Summary on 06/26 History/Risk Factors: "68-year-old male to the emergency department today. This patient presents today for evaluation of severe weakness. He was just discharged, patient was just discharged from the hospital secondary to multiple complaints but recent admission for pneumonia" - Per ED Note on 06/23 Clinical Indicators: "admission for A. fib with RVR and debility" - Per H&P on 06/23 "Permissible episodes of A. fib up to 130 bpm while in the acute phase of illness" - Per Cardiology note on 06/24 "Shortness of breath, multifactorial secondary to recent extensive pneumonia with postinflammatory changes noted in the right lung." - Per Pulmonology Note on 06/24 Vital signs: 06/23 - Temp. 98.0, HR 140, RR 24, BP 93/40, O2 93% on 2L NC 06/24 - Temp. 97.7, HR 72, RR 12, BP 123/90, O2 91% on Room Air WBC: 06/23 - 18.1, 06/25 - 11.5, 06/26 - 11.8 Lactic Acid: 06/23 - 4.0, 06/24 - 3.4, 3.6, 4.4, 2.9, 3.1, 2.2, 06/25 - 1.9 Procalcitonin: 06/24 - 0.17 Treatment: Per Medical H&P on 06/23 "Resume antibiotics recent cultures showed pansensitive Continue with Zosyn 3.375 grams every 8 hours IV piggyback Continue prednisone 40 mg by mouth daily DuoNeb's 4 times a day when necessary Supplemental oxygen as needed IV fluid hydration normal saline 130 mL per hour" Please clarify which diagnosis is most appropriate: [ ] Pneumonia with Sepsis currently being treated [ X] History of Pneumonia with Sepsis [ ] Other (please specify) [ ] Unable to determine MTDD
[2023-06-26 15:30] VITALS: BP 105/68; PULSE 65
--- NOTE | 2023-06-27 08:30 | PN ---
PROGRESS NOTE DATE OF SERVICE: 06/26/2023 SUBJECTIVE: This is a 68-year-old male who was seen today in room 370. Currently, the patient is on 2 L of oxygen. The patient is not receiving any IV fluids. The patient was complaining about the side-effects of IV Solu-Medrol, so we converted him to oral prednisone at a smaller dose. The patient is being evaluated for possible discharge to a alf today. He has no new complaints, other than the side-effects of the corticosteroids. He denies any shortness of breath or other pulmonary complaints. PHYSICAL EXAMINATION: VITAL SIGNS: Current vital signs are reviewed. His temperature is 98.2, heart rate 72, respiratory rate 16, blood pressure 105/68 with mean of 80, 2 L saturation 94%. GENERAL: He appears in no acute distress. HEENT: Grossly unremarkable. NECK: Supple. Full range of motion. No adenopathy or thyromegaly. Neck veins are flat. CARDIOVASCULAR: Reveals regular rhythm and rate. Heart rate 60. He is in sinus rhythm. No heart murmur. LUNGS: Revealed scattered rhonchi. No wheezes or crackles. ABDOMEN: Obese. Bowel sounds are heard. EXTREMITIES: Intact. No cyanosis, clubbing, or edema. SKIN: Without rash. NEUROLOGIC: Brief, but nonfocal. LABORATORY DATA: White count 11.8, hemoglobin 13.6, hematocrit 41.8, platelet count normal. Sodium 138, potassium 4.4, chloride 98, CO2 of 34, BUN 28, creatinine 0.56. Glucose is 148, calcium is 8.7, magnesium is 2.5. Blood cultures from June 15, were positive for Streptococcus pneumoniae. Recent blood cultures were negative. No recent chest x-ray. ASSESSMENT: 1. Shortness of breath, multifactorial, in part related to paroxysmal atrial fibrillation/rapid ventricular response, bilateral pneumonia, and possible postinflammatory changes. 2. Acute Streptococcal pneumoniae, streptococcal bacteremia, with recent admission. 3. Acute chronic obstructive pulmonary disease exacerbation. 4. Bicuspid aortic valve, and aortic stenosis. 5. Possible underlying congestive heart failure. 6. Benign essential hypertension. 7. Mild pulmonary hypertension. 8. Prior history of gastrointestinal bleed. 9. Morbid obesity. 10.History of pulmonary embolism. 11.History of gastroesophageal reflux disease, with previous Jim fundoplication. 12.History of bowel resection. 13.Obstructive sleep apnea syndrome. PLAN: The patient is doing relatively well. His only complaint is the side-effects from the corticosteroids. We changed his IV Solu-Medrol to oral prednisone. The patient is currently being evaluated for possible discharge to a local alf. Labs, x- rays, and medications are reviewed. Additional recommendations and suggestions are forthcoming. Prognosis is guarded. The patient will follow with me in the office. MMODL / IJN: [id number] /
[2023-06-27] MEDS ORDERED: predniSONE 20 MG TAB PO SCH (09:00)
== END 2023-06-26 15:01 | disposition home or self-care (01) | DRG 291 ==
LOC: EC 21:02 → 3SCARD 23:15
PROVIDERS: ADMIT Internal Medicine; ATTEND Internal Medicine
DX: I11.0 Hypertensive heart disease with heart failure (principal); I50.33 Acute on chronic diastolic (congestive) heart failure; J80 Acute respiratory distress syndrome; J44.1 Chronic obstructive pulmonary disease with (acute) exacerbation; Q23.1 Congenital insufficiency of aortic valve; E87.20 Acidosis, unspecified; I48.92 Unspecified atrial flutter; I77.810 Thoracic aortic ectasia; I48.0 Paroxysmal atrial fibrillation; G62.9 Polyneuropathy, unspecified; I27.20 Pulmonary hypertension, unspecified; G47.33 Obstructive sleep apnea (adult) (pediatric); E11.42 Type 2 diabetes mellitus with diabetic polyneuropathy; Z79.84 Long term (current) use of oral hypoglycemic drugs; E66.01 Morbid (severe) obesity due to excess calories; Z68.31 Body mass index [BMI] 31.0-31.9, adult; E78.5 Hyperlipidemia, unspecified; F32.A Depression, unspecified; F41.9 Anxiety disorder, unspecified; K21.9 Gastro-esophageal reflux disease without esophagitis; K59.00 Constipation, unspecified; M19.90 Unspecified osteoarthritis, unspecified site; M48.00 Spinal stenosis, site unspecified; N40.0 Benign prostatic hyperplasia without lower urinary tract symptoms; Z79.01 Long term (current) use of anticoagulants; Z79.51 Long term (current) use of inhaled steroids; Z79.899 Other long term (current) drug therapy; Z87.01 Personal history of pneumonia (recurrent); Z88.6 Allergy status to analgesic agent; Z88.1 Allergy status to other antibiotic agents; Z88.5 Allergy status to narcotic agent; Z87.19 Personal history of other diseases of the digestive system; Z96.643 Presence of artificial hip joint, bilateral; Z86.19 Personal history of other infectious and parasitic diseases
CPT/HCPCS: 36415; 71045; 80048; 80053; 81003; 83036; 83605; 83735; 83880; 84145; 84484; 85025; 85610; 85730; 87040; 87070; 87205; 87449; 93005; 94640; 96361; 96365; 96366; 96367; 96375; 96376; 99291

== ENCOUNTER 2023-07-09 18:56 | Emergency (ER) | payer MEDICARE ==
--- NOTE | 2023-07-09 19:17 | ED ---
GI Bleed HPI - General Chief complaint: GI Bleed Stated complaint: Anemic, abn labs Time Seen by Provider: 07/09/23 19:00 Source: EMS Mode of arrival: EMS Limitations: no limitations - History of Present Illness Initial comments: Patient is a 68-year-old man who is here to have evaluation for anemia and suspected GI bleeding. The patient states she is currently at senior care to rehabilitate following pneumonia. The patient had been here in the hospital and was released days ago. He states for the past 3 days she has been having suspected GI bleeding. On the first day he had stool with associated red blood. Since that time he has had 3 days of melanotic stools. Today he had one bowel movement was black stool. He has not had pain except on the first day he had some abdominal cramping. The patient states that today he has some lighthead edness and feels faint when he stands. MD complaint: melena Onset/Timin -: days(s) Radiation: none Quality: cramping Consistency: now resolved Improves with: none Worsens with: none Context: history of GI bleed Associated Symptoms: syncope (Orthostatic symptoms) Treatments Prior to Arrival: none - Related Data Home Medications Medication Instructions Recorded Confirmed Montelukast Sodium [Singulair] 10 mg PO HS 01/29/18 07/09/23 Furosemide [Lasix] 20 mg PO DAILY 07/11/18 07/09/23 Potassium Chloride [K-Tab ER] 20 meq PO HS 07/11/18 07/09/23 Fluticasone Nasal [place] [Flonase 2 spr EA NOSTRIL HS 06/28/19 07/09/23 Nasal [place]] Ipratropium-Albuterol Nebulize 3 ml INHALATION RT-HS 06/28/19 07/09/23 [Duoneb 0.5 mg-3 mg/3 ml Soln] Ipratropium [place] 0.06%Nasal 2 spray EA NOSTRIL DAILY 06/30/19 07/09/23 [Atrovent Nasal 0.06%] Albuterol Sulfate [Ventolin HFA] 2 puff INHALATION RT-Q6H PRN 05/21/21 07/09/23 Diclofenac Sodium Gel [Voltaren 1% 1 applic TOPICAL QID 05/21/21 07/09/23 Gel] Ketoconazole 2% Shampoo [Nizoral] 1 applic TOPICAL DAILY PRN 05/21/21 07/09/23 metFORMIN HCL [Glucophage] 1,000 mg PO BID 05/21/21 07/09/23 Budesonide [Pulmicort] 0.5 mg INHALATION RT-DAILY 01/01/23 07/09/23 Fluticasone/Umeclidin/Vilanter 1 puff INHALATION RT-DAILY 01/01/23 07/09/23 [[place] Ellipta 200-62.5-25] Formoterol Fumarate [Perforomist] 20 mcg INHALATION RT-BID 01/01/23 07/09/23 Sertraline [Zoloft] 100 mg PO DAILY 01/01/23 07/09/23 Apixaban [Eliquis] 2.5 mg PO BID 06/15/23 07/09/23 Amoxic-Pot Clav 875-125Mg 1 tab PO Q12HR 07/09/23 07/09/23 [Augmentin 875-125] Atorvastatin [Lipitor] 10 mg PO HS 07/09/23 07/09/23 Calcium Carbonate [Tums] 500 mg PO AC-TID 07/09/23 07/09/23 Furosemide [Lasix] 40 mg PO DAILY 07/09/23 07/09/23 Ipratropium-Albuterol Nebulize 3 ml INHALATION RT-BID@0800,1600 07/09/23 07/09/23 [Duoneb 0.5 mg-3 mg/3 ml Soln] L.acidoph,Paracasei, B.lactis 1 cap PO DAILY 07/09/23 07/09/23 [Probiotic] Pantoprazole [Protonix] 40 mg PO DAILY 07/09/23 07/09/23 Potassium Chloride 30 meq PO DAILY 07/09/23 07/09/23 Sennosides [Senokot] 8.6 mg PO BID 07/09/23 07/09/23 guaiFENesin 800 mg PO BID 07/09/23 07/09/23 predniSONE See Taper PO DIRECTED 07/09/23 07/09/23 Previous Rx's Medication Instructions Recorded Ferrous Sulfate [Feosol] 325 mg PO DAILY #30 tab 01/07/23 Digoxin [Lanoxin] 125 mcg PO DAILY #30 tab 06/23/23 Diltiazem Cd [Cardizem CD] 240 mg PO DAILY #30 cap 06/23/23 Docusate [Colace] 100 mg PO DAILY PRN cap 06/26/23 HYDROcodone/APAP 5-325MG [[place] 1 tab PO BID PRN #6 tab 06/26/23 5-325] Pregabalin [Lyrica] 300 mg PO BID #6 cap 06/26/23 traMADol HCL 100 mg PO Q6H PRN #12 tab 06/26/23 Allergies Allergy/AdvReac Type Severity Reaction Status Date / Time gemfibrozil [From Lopid] Allergy Unknown Verified 07/09/23 20:48 aspirin AdvReac Abdominal Verified 07/09/23 20:48 Pain ceftriaxone [From Rocephin] AdvReac Diarrhea Verified 07/09/23 20:48 fentanyl AdvReac Hallucinati Verified 07/09/23 20:48 ons gabapentin AdvReac Hallucinati Verified 07/09/23 20:48 ons moxifloxacin [From Avelox] AdvReac Unknown Verified 07/09/23 20:48 Review of Systems ROS Statement: Those systems with pertinent positive or pertinent negative responses have been documented in the HPI. ROS Other: All systems not noted in ROS Statement are negative. Constitutional: Denies: fever, chills, weakness Respiratory: Denies: cough, dyspnea Cardiovascular: Denies: chest pain, palpitations, orthopnea, edema Gastrointestinal: Reports: as per HPI, melena. Denies: abdominal pain, nausea, vomiting, constipation, hematemesis Genitourinary: Denies: dysuria, hematuria Musculoskeletal: Denies: back pain Skin: Denies: rash Neurological: Denies: headache, weakness, numbness Past Medical History Past Medical History: No Reported History, Atrial Fibrillation, Atrial Flutter, Asthma, Heart Failure, COPD, Diabetes Mellitus, GERD/Reflux, Hyperlipidemia, Hypertension, Osteoarthritis (OA), Pneumonia, Prostate Disorder, Pulmonary Embolus (PE), Skin Disorder, Sleep Apnea/CPAP/BIPAP Additional Past Medical History / Comment(s): CPAP use. Neuropathy bilateral feet, dermatitis, enlarged prostate, PE found in 07/2003 while hospitalized for pneumonia, spinal stenosis, degenerative scoliosis, migraines, palpitations, "bleeds easily", hospitalized in August w/influenza-can't seem to "shake" cough. SOB and fatigue last few months. History of Any Multi-Drug Resistant Organisms: None Reported Past Surgical History: Bowel Resection, Heart Catheterization, Hernia Repair, Joint Replacement, Orthopedic Surgery, Tonsillectomy Additional Past Surgical History / Comment(s): Bilateral hip replacements, bilateral cataracts removed, hiatal hernia repair, incisional hernia repair with mesh-had bowel complication that resulted in a bowel resection, bronchoscopies, colonoscopy, ulna nerve right elbow surgery, cardioversion, ARNOL. Past Anesthesia/Blood Transfusion Reactions: Previous Problems w/ Anesthesia, Family History of Problems w/ Anesthesia Additional Past Anesthesia/Blood Transfusion Reaction / Comment(s): Problem with being "twilighted" - becomes very combative. Slow to wake up. Uncle has same symptoms with "twilight". Past Psychological History: Depression Smoking Status: Former smoker Past Alcohol Use History: None Reported Past Drug Use History: None Reported - Past Family History Father Family Medical History: Cancer Additional Family Medical History / Comment(s): Prostrate cancer. Mother Family Medical History: Cancer Additional Family Medical History / Comment(s): Skin cancer. Brother(s) Family Medical History: Cancer Additional Family Medical History / Comment(s): Brother of lung cancer. General Exam Limitations: no limitations General appearance: alert, in no apparent distress Head exam: Present: atraumatic, normocephalic Eye exam: Present: normal appearance ENT exam: Present: normal oropharynx Neck exam: Present: normal inspection Respiratory exam: Present: rhonchi. Absent: respiratory distress, wheezes, rales, stridor, accessory muscle use Cardiovascular Exam: Present: regular rate, normal rhythm, systolic murmur. Absent: diastolic murmur, rubs, gallop GI/Abdominal exam: Present: soft. Absent: distended, tenderness, guarding, rebound, rigid, mass Extremities exam: Present: normal inspection, normal capillary refill. Absent: pedal edema, calf tenderness Back exam: Present: normal inspection. Absent: CVA tenderness (R), CVA tenderness (L) Neurological exam: Present: alert Skin exam: Present: warm, dry, intact, normal color. Absent: rash Course Vital Signs 07/09/23 07/09/23 07/09/23 19:02 20:00 21:32 Temperature 98.7 F Pulse Rate 73 82 76 Respiratory 18 16 16 Rate Blood Pressure 123/80 102/80 101/68 O2 Sat by Pulse 94 L 95 94 L Oximetry 07/09/23 07/09/23 07/10/23 22:30 23:37 00:28 Temperature Pulse Rate 69 80 70 Respiratory 16 16 16 Rate Blood Pressure 94/68 97/59 110/64 O2 Sat by Pulse 95 95 97 Oximetry Medical Decision Making - Medical Decision Making Review of the patient's previous records show that he was admitted in December 2022 for similar presentation. The patient had continued bleeding in the hospital and then had an endoscopy performed by Dr. Foster (gastroenterology), 01/05/2023. JVD was reported as normal. The colonoscopy found 3 small polyps with no bleeding. The patient did have diverticular changes but no active bleeding. At time the bleeding was attributed to diverticular disease. The patient received transfusion and the bleeding had stopped without further intervention. As there is no gastroenterology coverage, I discussed case with Dr. Atwood, covering on general surgery and he states that the patient will require transfer for gastroenterology. Discussed this with the patient to is agreeable to transfer to our [facility]. The case discussed with [facility] and Dr. Camacho accept patient for transfer. Was pt. sent in by a medical professional or institution (, PA, MERCERIZER, urgent care, hospital, or senior care...) When possible be specific @ -Patient sent from senior care Did you speak to anyone other than the patient for history (EMS, parent, family, police, friend...)? What history was obtained from this source @ -[No] Did you review nursing and triage notes (agree or disagree)? Why? @ -[I reviewed and agree with nursing and triage notes] Were old charts reviewed (outside hosp., previous admission, EMS record, old EKG, old radiological studies, urgent care reports/EKG's, senior care records)? Report findings @ -[Yes the patient's previous gastroenterology consultation and procedures reviewed Differential Diagnosis (chest pain, altered mental status, abdominal pain women, abdominal pain men, vaginal bleeding, weakness, fever, dyspnea, syncope, headache, dizziness, GI bleed, back pain, seizure, CVA, palpatations, mental health, musculoskeletal)? @ -[Differential GI Bleed: Esophageal varices, aortoenteric fistula, Jacqui-Paige, gastritis, peptic ulcer disease, diverticulosis, inflammatory bowel disease, hemorrhoids, fissure, colitis, malignancy, Meckels diverticulum, this is not meant to be an all- inclusive list. EKG interpreted by me (3pts min.). @ -[I interpreted As above] X-rays interpreted by me (1pt min.). @ -[None done] CT interpreted by me (1pt min.). @ -[None done] U/S interpreted by me (1pt. min.). @ -[None done] What testing was considered but not performed or refused? (CT, X-rays, U/S, labs)? Why? @ -[None] What meds were considered but not given or refused? Why? @ -[None] Did you discuss the management of the patient with other professionals (professionals i.e. , PA, MERCERIZER, lab, RT, psych nurse, social contact worker, gaming cage cashier, teacher, emergency response officer, correctional casework specialist)? Give summary @ -I discussed case with surgery on-call and there treatment recommendations are incorporated Was smoking cessation discussed for >3mins.? @ -[No] Was critical care preformed (if so, how long)? @ -[Yes, 35 minutes Were there social determinants of health that impacted care today? How? (Homelessness, low income, unemployed, alcoholism, drug addiction, t ransportation, low edu. Level, literacy, decrease access to med. care, snf, rehab)? @ -[No] Was there de-escalation of care discussed even if they declined (Discuss DNR or withdrawal of care, Hospice)? DNR status @ -[No] What co-morbidities impacted this encounter? (DM, HTN, Smoking, COPD, CAD, Cancer, CVA, ARF, Chemo, Hep., AIDS, mental health diagnosis, sleep apnea, morbid obesity)? @ -[Pre-existing diverticular disease Was patient admitted / discharged? Hospital course, mention meds given and route, prescriptions, significant lab abnormalities, going to OR and other pertinent info. @ -[See above Undiagnosed new problem with uncertain prognosis? @ -[No] Drug Therapy requiring intensive monitoring for toxicity (Heparin, Nitro, Insulin, Cardizem)? @ -[No] Were any procedures done? @ -[No] Diagnosis/symptom? @ -[Acute gastrointestinal bleeding Acute anemia Acute, or Chronic, or Acute on Chronic? @ -[Acute Uncomplicated (without systemic symptoms) or Complicated (systemic symptoms)? @ -[Gastrointestinal bleeding, complicated by anemia Side effects of treatment? @ -[No] Exacerbation, Progression, or Severe Exacerbation? @ -[No] Poses a threat to life or bodily function? How? (Chest pain, [place], [place], pneumonia, PE, COPD, DKA, ARF, appy, cholecystitis, CVA, Diverticulitis, Homicidal, Suicidal, threat to staff... and all critical care pts) @ -[Yes there is risk with further bleeding there may be hypotension, decreased oxygen-carrying capacity, other organ systems failure/ - Lab Data Result diagrams: 07/09/23 19:38 07/09/23 19:38 Lab Results 07/09/23 07/09/23 07/09/23 Range/Units 19:33 19:38 19:38 WBC 9.6 (3.8-10.6) k/uL RBC 2.19 L (4.30-5.90) m/uL Hgb 7.2 L (13.0-17.5) gm/dL Hct 21.5 L (39.0-53.0) % MCV 97.8 (80.0-100.0) fL MCH 32.6 (25.0-35.0) pg MCHC 33.4 (31.0-37.0) g/dL RDW 19.2 H (11.5-15.5) % Plt Count 89 L (150-450) k/uL MPV 10.6 Neutrophils % 85 % Lymphocytes % 8 % Monocytes % 5 % Eosinophils % 0 % Basophils % 0 % Neutrophils # 8.1 H (1.3-7.7) k/uL Lymphocytes # 0.8 L (1.0-4.8) k/uL Monocytes # 0.5 (0-1.0) k/uL Eosinophils # 0.0 (0-0.7) k/uL Basophils # 0.0 (0-0.2) k/uL Hypochromasia Slight Poikilocytosis Slight Anisocytosis Slight Macrocytosis Slight PT 9.6 L (10.0-12.5) sec INR 0.9 (<1.2) APTT 20.7 L (22.0-30.0) sec Sodium (137-145) mmol/L Potassium (3.5-5.1) mmol/L Chloride (98-107) mmol/L Carbon Dioxide (22-30) mmol/L Anion Gap mmol/L BUN (9-20) mg/dL Creatinine (0.66-1.25) mg/dL Est GFR (CKD-EPI)AfAm (>60 ml/min/1.73 sqM) Est GFR (CKD-EPI)NonAf (>60 ml/min/1.73 sqM) Glucose (74-99) mg/dL Lactic Ac Sepsis Rflx Plasma Lactic Acid Gabriel (0.7-2.0) mmol/L Calcium (8.4-10.2) mg/dL Total Bilirubin (0.2-1.3) mg/dL AST (17-59) U/L ALT (4-49) U/L Alkaline Phosphatase (38-126) U/L Troponin I (0.000-0.034) ng/mL Total Protein (6.3-8.2) g/dL Albumin (3.5-5.0) g/dL Stool Occult Blood (Negative) Blood Type O Negative Blood Type Recheck O Neg Bld Type Recheck Status No Antibody Screen NEGATIVE Spec Expiration Date 07/12/2023 - 233207/09/23 07/09/23 07/09/23 Range/Units 19:38 19:38 19:38 WBC (3.8-10.6) k/uL RBC (4.30-5.90) m/uL Hgb (13.0-17.5) gm/dL Hct (39.0-53.0) % MCV (80.0-100.0) fL MCH (25.0-35.0) pg MCHC (31.0-37.0) g/dL RDW (11.5-15.5) % Plt Count (150-450) k/uL MPV Neutrophils % % Lymphocytes % % Monocytes % % Eosinophils % % Basophils % % Neutrophils # (1.3-7.7) k/uL Lymphocytes # (1.0-4.8) k/uL Monocytes # (0-1.0) k/uL Eosinophils # (0-0.7) k/uL Basophils # (0-0.2) k/uL Hypochromasia Poikilocytosis Anisocytosis Macrocytosis PT (10.0-12.5) sec INR (<1.2) APTT (22.0-30.0) sec Sodium 137 (137-145) mmol/L Potassium 3.8 (3.5-5.1) mmol/L Chloride 102 (98-107) mmol/L Carbon Dioxide 27 (22-30) mmol/L Anion Gap 8 mmol/L BUN 24 H (9-20) mg/dL Creatinine 0.78 (0.66-1.25) mg/dL Est GFR (CKD-EPI)AfAm >90 (>60 ml/min/1.73 sqM) Est GFR (CKD-EPI)NonAf >90 (>60 ml/min/1.73 sqM) Glucose 93 (74-99) mg/dL Lactic Ac Sepsis Rflx Plasma Lactic Acid Gabriel 4.6 H* (0.7-2.0) mmol/L Calcium 9.1 (8.4-10.2) mg/dL Total Bilirubin 0.3 (0.2-1.3) mg/dL AST 33 (17-59) U/L ALT 27 (4-49) U/L Alkaline Phosphatase 96 (38-126) U/L Troponin I 0.015 (0.000-0.034) ng/mL Total Protein 5.2 L (6.3-8.2) g/dL Albumin 3.1 L (3.5-5.0) g/dL Stool Occult Blood (Negative) Blood Type Blood Type Recheck Bld Type Recheck Status Antibody Screen Spec Expiration Date 07/09/23 07/09/23 07/09/23 Range/Units 20:21 21:02 22:45 WBC (3.8-10.6) k/uL RBC (4.30-5.90) m/uL Hgb (13.0-17.5) gm/dL Hct (39.0-53.0) % MCV (80.0-100.0) fL MCH (25.0-35.0) pg MCHC (31.0-37.0) g/dL RDW (11.5-15.5) % Plt Count (150-450) k/uL MPV Neutrophils % % Lymphocytes % % Monocytes % % Eosinophils % % Basophils % % Neutrophils # (1.3-7.7) k/uL Lymphocytes # (1.0-4.8) k/uL Monocytes # (0-1.0) k/uL Eosinophils # (0-0.7) k/uL Basophils # (0-0.2) k/uL Hypochromasia Poikilocytosis Anisocytosis Macrocytosis PT (10.0-12.5) sec INR (<1.2) APTT (22.0-30.0) sec Sodium (137-145) mmol/L Potassium (3.5-5.1) mmol/L Chloride (98-107) mmol/L Carbon Dioxide (22-30) mmol/L Anion Gap mmol/L BUN (9-20) mg/dL Creatinine (0.66-1.25) mg/dL Est GFR (CKD-EPI)AfAm (>60 ml/min/1.73 sqM) Est GFR (CKD-EPI)NonAf (>60 ml/min/1.73 sqM) Glucose (74-99) mg/dL Lactic Ac Sepsis Rflx Y Plasma Lactic Acid Gabriel 1.9 (0.7-2.0) mmol/L Calcium (8.4-10.2) mg/dL Total Bilirubin (0.2-1.3) mg/dL AST (17-59) U/L ALT (4-49) U/L Alkaline Phosphatase (38-126) U/L Troponin I (0.000-0.034) ng/mL Total Protein (6.3-8.2) g/dL Albumin (3.5-5.0) g/dL Stool Occult Blood Positive (Negative) Blood Type Blood Type Recheck Bld Type Recheck Status Antibody Screen Spec Expiration Date - EKG Data -: EKG Interpreted by Me EKG shows normal: sinus rhythm, axis (Normal), intervals ([place]), QRS complexes (Normal) Rate: normal (Rate 74 bpm) Interpretation: nonspecific ST-T wave changes, [facility] Critical Care Time Critical Care Time: Yes (35 minutes) Disposition Clinical Impression: GI bleed, Anemia Disposition: OTHER INSTITUTION NOT DEFINED Condition: Fair Instructions (If sedation given, give patient instructions): Gastrointestinal Bleeding (ED) Is patient prescribed a controlled substance at d/c from ED?: No Referrals: Wei Henry, [Primary Care Provider] - 1-2 days - Out of Hospital Transfer - Req. Specs Out of Hospital Transfer - Requested Specifics: Other Emergency Center
[2023-07-09 19:26] VITALS: TEMP 98.7
[2023-07-09 19:53] LABS: Anisocytosis Slight; Basophils % (A) 0 %; Eosinophils % (A) 0 %; HCT 21.5 % (39.0-53.0); HGB 7.2 gm/dL (13.0-17.5); Hypochromasia Slight; Lymphocytes # (A) 0.8 k/uL (1.0-4.8); Lymphocytes % (A) 8 %; MCH 32.6 pg (25.0-35.0); MCHC 33.4 g/dL (31.0-37.0); MCV 97.8 fL (80.0-100.0); Macrocytosis Slight; Mean Platelet Volume 10.6; Monocytes # (A) 0.5 k/uL (0-1.0); Monocytes % (A) 5 %; Neutrophils # (A) 8.1 k/uL (1.3-7.7); Neutrophils % (A) 85 %; Poikilocytosis Slight; RBC 2.19 m/uL (4.30-5.90); RDW 19.2 % (11.5-15.5); WBC 9.6 k/uL (3.8-10.6)
[2023-07-09 20:07] LABS: ALT 27 U/L (4-49); AST 33 U/L (17-59); African American GFR (CKD) >90 (>60 ml/min/1.73 sqM); Albumin 3.1 g/dL (3.5-5.0); Alkaline Phosphatase 96 U/L (38-126); Anion Gap 8 mmol/L; Blood Urea Nitrogen 24 mg/dL (9-20); Calcium 9.1 mg/dL (8.4-10.2); Carbon Dioxide 27 mmol/L (22-30); Chloride 102 mmol/L (98-107); Glucose 93 mg/dL (74-99); Non-African American GFR(CKD) >90 (>60 ml/min/1.73 sqM); Potassium 3.8 mmol/L (3.5-5.1); Sodium 137 mmol/L (137-145); Total Bilirubin 0.3 mg/dL (0.2-1.3); Total Protein 5.2 g/dL (6.3-8.2)
[2023-07-09 20:09] LABS: INR 0.9 (<1.2); Prothrombin Time 9.6 sec (10.0-12.5)
[2023-07-09 20:11] LABS: Platelet Count 89 k/uL (150-450)
[2023-07-09 20:14] LABS: Partial Thromboplastin Time 20.7 sec (22.0-30.0)
[2023-07-09] MEDS ORDERED: SODIUM CHLORIDE 0.9% 500 ML 500 ML IV STA (20:23)
[2023-07-09 21:38] VITALS: RESP 16
[2023-07-09] MEDS ORDERED: TRANEXAMIC 1,000 MG/100ML-NACL 1,000 MG in SALINE 1 100ML.BAG IVPB ONE (23:17)
[2023-07-10 00:54] VITALS: BP 110/64; PULSE 70
== END 2023-07-10 00:31 | disposition other institution (70) ==
LOC: EC 18:56
DX: K92.2 Gastrointestinal hemorrhage, unspecified (principal); D64.9 Anemia, unspecified; E11.40 Type 2 diabetes mellitus with diabetic neuropathy, unspecified; I48.91 Unspecified atrial fibrillation; I48.92 Unspecified atrial flutter; I11.0 Hypertensive heart disease with heart failure; I50.9 Heart failure, unspecified; J44.89 Other specified chronic obstructive pulmonary disease; E78.5 Hyperlipidemia, unspecified; K21.9 Gastro-esophageal reflux disease without esophagitis; F32.A Depression, unspecified; Z79.01 Long term (current) use of anticoagulants; Z79.51 Long term (current) use of inhaled steroids; Z79.84 Long term (current) use of oral hypoglycemic drugs; Z79.899 Other long term (current) drug therapy; Z88.1 Allergy status to other antibiotic agents; Z88.5 Allergy status to narcotic agent; Z88.6 Allergy status to analgesic agent; Z88.8 Allergy status to other drugs, medicaments and biological substances; Z87.891 Personal history of nicotine dependence; Z86.711 Personal history of pulmonary embolism
CPT/HCPCS: 36415; 80053; 82272; 83605; 84484; 85025; 85610; 85730; 86850; 86900; 86901; 96361; 96365; 99291

== ENCOUNTER 2023-07-27 05:48 | Day surgery (SDC) | payer MEDICARE ==
[2023-07-26 12:02] VITALS: BMI 30.4
[~2023-07-27 05:48] MED LIST changes: -ALPRAZolam 0.25 MG TAB PO PRN; -ALPRAZolam 0.5 MG TAB PO PRN; -ASPIRIN 325 MG TAB PO STA; -ATORVASTATIN 80 MG TAB PO STA; -HEPARIN SODIUM 1,000 UN/ML (10ML VL) ONE; -HEPARIN SODIUM,PORCINE 10,000 UNIT in SODIUM CHLORIDE 0.9% 1,000 ML IRRIGATION PRN; -HEPARIN SODIUM,PORCINE 2,500 UNIT in SODIUM CHLORIDE 0.9% 250 ML IRRIGATION PRN; -IOPAMIDOL-370 125ML BTL INJ ONE; +LACTATED RINGERS 1,000 ML IV SCH; -LIDOCAINE 1% INJ 10MG/ML (20 ML MDV) ONE; -LIDOCAINE 1% INJ 10MG/ML (20 ML MDV) SQ ONE; -MIDAZOLAM 2 MG/2 ML VIAL IV ONE; -NITROGLYCERIN SL TABS 0.4 MG TAB SUBLINGUAL PRN; -RX INFO: IV CONTRAST WAS GIVEN 1 EACH MISC MISCELLANE PRN; -SODIUM CHLORIDE 0.9% 1,000 ML IV SCH; -SODIUM CHLORIDE 0.9% 1,000 ML in EMPTY BAG 1 BAG IV ONE; -VERAPAMIL 2.5 MG/ML 2 ML AMP ONE; -VERAPAMIL SYRINGE (5 MG/10 ML) INTRAARTER ONE; -fentaNYL (PF) 50 MCG/ML 2 ML AMP IV ONE; -fentaNYL (PF) 50 MCG/ML 2 ML AMP ONE
[2023-07-27] MEDS: ATROPINE SULFATE 0.4 MG/ML 1 ML VIAL IM ONE (06:42)
[2023-07-27] MEDS: LIDOCAINE 1% (10MG/ML) FOR IV START INTRADERMA ONE (06:43)
[2023-07-27] MEDS: LACTATED RINGERS 1,000 ML IV SCH (06:44)
[2023-07-27 06:56] LABS: Glucose,Whole Blood 82 mg/dL (70-110)
[2023-07-27 06:58] VITALS: TEMP 97.8
[2023-07-27] MEDS ORDERED: LIDOCAINE 1% INJ 10MG/ML (20 ML MDV) ONE (06:59)
[2023-07-27] MEDS ORDERED: PROPOFOL 10 MG/ML 20 ML VIAL IV ONE (06:59)
[2023-07-27] MEDS: LIDOCAINE 2% (PF) 20 MG/ML 2 ML AMP INHALATION ONE (07:23)
[2023-07-27 07:31] LABS: Glucose,Whole Blood 94 mg/dL (70-110)
--- NOTE | 2023-07-27 07:55 | OP ---
OPERATIVE REPORT DATE OF SERVICE : TITLE: Pulmonary/Critical Care procedure note. PROCEDURE PERFORMED: Bronchoscopy, airway examination, therapeutic lavage, BAL right middle lobe. PREOPERATIVE DIAGNOSES: Pneumonia, retained secretions, severe tracheobronchomalacia, chronic obstructive pulmonary disease. POSTOPERATIVE DIAGNOSES: Pneumonia, retained secretions, severe tracheobronchomalacia, chronic obstructive pulmonary disease. DESCRIPTION OF PROCEDURE: The patient's procedure was done in room #1, [facility]. Sandrita Martinez CRNA, provided anesthesia. There was informed consent, universal time-out. Dr. Srivastava was the hydraulic rockbreaker operator. After the patient was adequately sedated, the bronchoscope was inserted through a bite block, and passed easily through the oropharynx, into the hypopharynx. The hypopharyngeal structures were crowded. There were thick secretions noted in the hypopharynx. The hypopharyngeal structures appeared normal including the anterior commissure; true cords; false cords; arytenoids; piriform sinuses, right and left; and vallecular. After topicalization, the bronchoscope was pushed through the glottic opening and into the trachea. There was severe tracheomalacia. There were thick secretions noted throughout the trachea. They were suctioned with some difficulty with the aid of saline. The trachea was topicalized with lidocaine. The right and left mainstem were also topicalized with lidocaine. Next, we did a thorough evaluation of the right lung and left lung. Right upper lobe and its 3 segments, right middle lobe and its 2 segments, right lower lobe and its 5 segments, left upper lobe proper and its 2 segments, lingula and its 2 segments and left lower lobe and its 4 segments were all evaluated. There were similar findings throughout. The mucosa was very erythematous and hyperemic. There was some mucosal friability. There was no dominant mass or tumor. There was vascular engorgement. There were thick secretions noted throughout both lungs. They were suctioned with some difficulty, as there were significant bronchomalacia as well. The patient tolerated the procedure well. The bronchoscope was wedged into the right middle lobe. There was a formal BAL. A 30 mL of turbid fluid was recovered. There was no immediate complication. There was no bleeding. Finally, before the bronchoscope was withdrawn, saline was used to suction any additional secretions that were in the airways. This was accomplished. The bronchoscope was withdrawn. The patient will be recovered. There was no immediate complication. MMODL / IJN: [id number] /
[2023-07-27 07:57] VITALS: BP 108/65; PULSE 65; RESP 16
[2023-07-27 20:28] LABS: Appearance,BF Cloudy (Clear); RBC, Body Fluid 200 /UL (0-2000)
[2023-07-30 11:59] LABS: Nucleated Cells, Body Fluid 19400 /UL
== END 2023-07-27 08:16 ==
LOC: ORWHC2ENDO 05:48
PROVIDERS: ATTEND Internal Medicine Critical Care Medicine
DX: J44.9 Chronic obstructive pulmonary disease, unspecified (principal); J18.9 Pneumonia, unspecified organism; I10 Essential (primary) hypertension; E78.5 Hyperlipidemia, unspecified; G47.33 Obstructive sleep apnea (adult) (pediatric); Z88.6 Allergy status to analgesic agent; Z88.9 Allergy status to unspecified drugs, medicaments and biological substances; Z88.1 Allergy status to other antibiotic agents; Z86.73 Personal history of transient ischemic attack (TIA), and cerebral infarction without residual deficits; Z79.899 Other long term (current) drug therapy
CPT/HCPCS: 88108; 88305; 89050; 87070; 87205; 87116; 87102; 87077; 87186; 87206; 31624; J0461; J2001 ×2; J2704

== ENCOUNTER 2023-08-24 14:02 | Emergency (ER) | payer MEDICARE ==
--- NOTE | 2023-08-24 14:25 | ED ---
Recheck HPI - General Chief Complaint: Recheck/Abnormal Lab/Rx Stated Complaint: Abn Labs Time Seen by Provider: 08/24/23 14:15 Source: patient, RN notes reviewed Mode of arrival: wheelchair Limitations: no limitations - History of Present Illness Initial Comments: 68-year-old male past medical history of atrial fibrillation, on Eliquis, and COPD presents to the ED with chief complaint of abnormal labs. Patient was called by his primary care office with a hemoglobin of 7.2, and instructed to go to the ER for transfusion. States that he has been feeling light headed, but denies chest pain, palpitations, shortness of breath. Has a known history of multiple GI bleeds over the past few years, and is following up with GI next week for further evaluation. Patient denies hematochezia, dark or tarry stools. Patient is currently on doxycycline and daily oral prednisone for a COPD exacerbation. - Related Data Home Medications Medication Instructions Recorded Confirmed Montelukast Sodium [Singulair] 10 mg PO HS 01/29/18 07/27/23 Furosemide [Lasix] 20 mg PO DAILY 07/11/18 07/27/23 Potassium Chloride [K-Tab ER] 20 meq PO DAILY 07/11/18 07/27/23 Ipratropium-Albuterol Nebulize 3 ml INHALATION DIRECTED PRN 06/28/19 07/27/23 [Duoneb 0.5 mg-3 mg/3 ml Soln] Diclofenac Sodium Gel [Voltaren 1% 1 applic TOPICAL QID 05/21/21 07/27/23 Gel] metFORMIN HCL [Glucophage] 1,000 mg PO BID 05/21/21 07/27/23 Budesonide [Pulmicort] 0.5 mg INHALATION BID 01/01/23 07/27/23 Fluticasone/Umeclidin/Vilanter 1 puff INHALATION RT-DAILY 01/01/23 07/27/23 [[place] Ellipta 200-62.5-25] Formoterol Fumarate [Perforomist] 20 mcg INHALATION RT-BID 01/01/23 07/27/23 Sertraline [Zoloft] 100 mg PO DAILY 01/01/23 07/27/23 Apixaban [Eliquis] 2.5 mg PO Q12HR 06/15/23 07/27/23 Amoxic-Pot Clav 875-125Mg 1 tab PO Q12HR 07/09/23 07/27/23 [Augmentin 875-125] Atorvastatin [Lipitor] 10 mg PO HS 07/09/23 07/27/23 Ipratropium-Albuterol Nebulize 3 ml INHALATION TID 07/09/23 07/27/23 [Duoneb 0.5 mg-3 mg/3 ml Soln] predniSONE See Taper PO DIRECTED 07/09/23 07/27/23 Albuterol Inhaler [Ventolin Hfa 1 - 2 puff INHALATION Q6H PRN 07/26/23 07/27/23 Inhaler] HYDROcodone/APAP 5-325MG [[place] 1 tab PO Q4HR PRN 07/26/23 07/27/23 5-325] Lactobacillus Acidophilus 1 each PO DAILY 07/26/23 07/27/23 [Acidophilus] Omeprazole 20 mg PO BID 07/26/23 07/27/23 Previous Rx's Medication Instructions Recorded Docusate [Colace] 100 mg PO DAILY PRN cap 06/26/23 Pregabalin [Lyrica] 300 mg PO BID #6 cap 06/26/23 traMADol HCL 100 mg PO Q6H PRN #12 tab 06/26/23 Allergies Allergy/AdvReac Type Severity Reaction Status Date / Time gemfibrozil [From Lopid] Allergy Unknown Verified 07/27/23 06:21 aspirin AdvReac Abdominal Verified 07/27/23 06:21 Pain ceftriaxone [From Rocephin] AdvReac Diarrhea Verified 07/27/23 06:21 fentanyl AdvReac Hallucinati Verified 07/27/23 06:21 ons gabapentin AdvReac Hallucinati Verified 07/27/23 06:21 ons moxifloxacin [From Avelox] AdvReac Unknown Verified 07/27/23 06:21 moxifloxacin Allergy Unknown Unknown Uncoded 07/27/23 06:21 Review of Systems ROS Statement: Those systems with pertinent positive or pertinent negative responses have been documented in the HPI. ROS Other: All systems not noted in ROS Statement are negative. Past Medical History Past Medical History: Atrial Fibrillation, Atrial Flutter, Asthma, Heart Failure, COPD, CVA/TIA, Diabetes Mellitus, GERD/Reflux, GI Bleed, Hyperlipidemia, Hypertension, Osteoarthritis (OA), Pneumonia, Prostate Disorder, Pulmonary Embolus (PE), Skin Disorder, Sleep Apnea/CPAP/BIPAP Additional Past Medical History / Comment(s): states he was told he had hx tia's., hx of colon polyps, divertucular disease., constipation., Sleep Apnea with CPAP use. ,Neuropathy feet., dermatitis, enlarged prostate, PE 07/2003., spinal stenosis, degenerative scoliosis, states multiple hospitalizations since Jun 15 with pneumonia , cough, new diagnosis of a-fib, blood infection & transferred to [place] with GI bleed june 2023., currently at [facility]., oxygen at 2 liters prn. History of Any Multi-Drug Resistant Organisms: None Reported Past Surgical History: Bowel Resection, Heart Catheterization, Hernia Repair, Joint Replacement, Orthopedic Surgery, Tonsillectomy Additional Past Surgical History / Comment(s): Bilateral hip replacements, bilateral cataracts , hiatal hernia repair , incisional hernia repair with mesh- had bowel complication that resulted in a bowel resection, bronchoscopies, colonoscopy, ulna nerve right elbow surgery, cardioversion, ARNOL., EGD Past Anesthesia/Blood Transfusion Reactions: Previous Problems w/ Anesthesia, Family History of Problems w/ Anesthesia Additional Past Anesthesia/Blood Transfusion Reaction / Comment(s): Penfield anesthesia- becomes very combative & Slow to wake up. states his Uncle has same symptoms with twilight anesthesia. Past Psychological History: No Psychological Hx Reported Smoking Status: Former smoker Past Alcohol Use History: None Reported Past Drug Use History: None Reported - Past Family History Father Family Medical History: Cancer Additional Family Medical History / Comment(s): Prostrate cancer. Mother Family Medical History: Cancer Additional Family Medical History / Comment(s): Skin cancer. Brother(s) Family Medical History: Cancer Additional Family Medical History / Comment(s): Brother of lung cancer. General Exam - General Exam Comments Initial Comments: Visual Physical Exam Vital signs reviewed General: Well-appearing, nontoxic, no acute distress. Head: Normocephalic, atraumatic Eyes: PERRLA, EOMI ENT: Airway patent Chest: Nonlabored breathing Skin: No visual rash, normal skin tone Neuro: Alert and oriented 3 Musculoskeletal: No gross abnormalities Limitations: no limitations Course Vital Signs 08/24/23 14:09 Temperature 98.7 F Pulse Rate 82 Respiratory 18 Rate Blood Pressure 115/71 O2 Sat by Pulse 96 Oximetry Medical Decision Making - Medical Decision Making I completed the quick note portion of this chart signed Priscila Pagan PA-C Was pt. sent in by a medical professional or institution (RONAL Tejeda, SURFACE SHIP USW SUPERVISOR, urgent care, hospital, or prison...) When possible be specific @ -She was advised by primary care provider to present to the ER for a blood transfusion due to low hemoglobin. Did you speak to anyone other than the patient for history (EMS, parent, family, police, friend...)? What history was obtained from this source @ -No Did you review nursing and triage notes (agree or disagree)? Why? @ -I reviewed and agree with nursing and triage notes Were old charts reviewed (outside hosp., previous admission, EMS record, old EKG, old radiological studies, urgent care reports/EKG's, prison records)? Report findings @ -No old charts were reviewed Differential Diagnosis (chest pain, altered mental status, abdominal pain women, abdominal pain men, vaginal bleeding, weakness, fever, dyspnea, syncope, heada yuly, dizziness, GI bleed, back pain, seizure, CVA, palpatations, mental health, musculoskeletal)? @ -Differential GI Bleed: Esophageal varices, aortoenteric fistula, Jacqui-Paige, gastritis, peptic ulcer disease, diverticulosis, inflammatory bowel disease, hemorrhoids, fissure, colitis, malignancy, Meckels diverticulum, this is not meant to be an all- inclusive list. EKG interpreted by me (3pts min.). @ -None X-rays interpreted by me (1pt min.). @ -None done CT interpreted by me (1pt min.). @ -None done U/S interpreted by me (1pt. min.). @ -None done What testing was considered but not performed or refused? (CT, X-rays, U/S, labs)? Why? @ -None What meds were considered but not given or refused? Why? @ -None Did you discuss the management of the patient with other professionals (evon matamoros i.e. RONAL Tejeda, SURFACE SHIP USW SUPERVISOR, lab, RT, psych nurse, social economist, criminal justice lawyer, teacher, forest fire officer, watch case polisher)? Give summary @ -No Was smoking cessation discussed for >3mins.? @ -No Was critical care preformed (if so, how long)? @ -No Were there social determinants of health that impacted care today? How? (Homelessness, low income, unemployed, alcoholism, drug addiction, transportation, low edu. Level, literacy, decrease access to med. care, fci, rehab)? @ -No Was there de-escalation of care discussed even if they declined (Discuss DNR or withdrawal of care, Hospice)? DNR status @ -No What co-morbidities impacted this encounter? (DM, HTN, Smoking, COPD, CAD, Cancer, CVA, ARF, Chemo, Hep., AIDS, mental health diagnosis, sleep apnea, morbid obesity)? @ -HTN, CAD, A-fib, COPD Was patient admitted / discharged? Hospital course, mention meds given and route, prescriptions, significant lab abnormalities, going to OR and other pertinent info. @ -Discharged. 68-year-old male presents to ED with chief complaint of low hemoglobin from PCP office. Patient's CBC remarkable for hemoglobin 9.6, anibal tocrit 31.5 and microcytic anemia. Patient is not a candidate for transfusion at this time due to patient's recent lab results and overall presentation/symptoms. patient to continue to follow-up with GI for further evaluation of GI bleed. Undiagnosed new problem with uncertain prognosis? @ -No Drug Therapy requiring intensive monitoring for toxicity (Heparin, Nitro, Insulin, Cardizem)? @ -No Were any procedures done? @ -No Diagnosis/symptom? @ -microcytic anemia Acute, or Chronic, or Acute on Chronic? @ -Acute on chronic Uncomplicated (without systemic symptoms) or Complicated (systemic symptoms)? @ -Uncomplicated Side effects of treatment? @ -No Exacerbation, Progression, or Severe Exacerbation? @ -No Poses a threat to life or bodily function? How? (Chest pain, [place], [place], pneumonia, PE, COPD, DKA, ARF, appy, cholecystitis, CVA, Diverticulitis, Homicidal, Suicidal, threat to staff... and all critical care pts) @ -No - Lab Data Result diagrams: 08/24/23 14:49 08/24/23 14:49 Lab Results 08/24/23 08/24/23 08/24/23 Range/Units 14:49 14:49 14:49 WBC 10.4 (3.8-10.6) k/uL RBC 3.85 L (4.30-5.90) m/uL Hgb 9.6 L (13.0-17.5) gm/dL Hct 31.5 L (39.0-53.0) % MCV 81.8 D (80.0-100.0) fL MCH 24.9 L (25.0-35.0) pg MCHC 30.4 L (31.0-37.0) g/dL RDW 17.6 H (11.5-15.5) % Plt Count 397 (150-450) k/uL MPV 9.5 Neutrophils % 87 % Lymphocytes % 5 % Monocytes % 6 % Eosinophils % 1 % Basophils % 0 % Neutrophils # 9.1 H (1.3-7.7) k/uL Lymphocytes # 0.5 L (1.0-4.8) k/uL Monocytes # 0.6 (0-1.0) k/uL Eosinophils # 0.1 (0-0.7) k/uL Basophils # 0.0 (0-0.2) k/uL Hypochromasia Marked Poikilocytosis Moderate Anisocytosis Slight PT 10.8 (10.0-12.5) sec INR 1.0 (<1.2) APTT 23.3 (22.0-30.0) sec Sodium 138 (137-145) mmol/L Potassium 4.2 (3.5-5.1) mmol/L Chloride 106 (98-107) mmol/L Carbon Dioxide 20 L (22-30) mmol/L Anion Gap 12 mmol/L BUN 29 H (9-20) mg/dL Creatinine 0.53 L (0.66-1.25) mg/dL Est GFR (CKD-EPI)AfAm >90 (>60 ml/min/1.73 sqM) Est GFR (CKD-EPI)NonAf >90 (>60 ml/min/1.73 sqM) Glucose 123 H (74-99) mg/dL Calcium 9.5 (8.4-10.2) mg/dL Total Bilirubin 0.4 (0.2-1.3) mg/dL AST 24 (17-59) U/L ALT 17 (4-49) U/L Alkaline Phosphatase 103 (38-126) U/L Total Protein 5.8 L (6.3-8.2) g/dL Albumin 3.8 (3.5-5.0) g/dL Disposition Clinical Impression: Microcytic anemia Narrative: Please return to the Emergency Department if symptoms worsen or any other flakita rns. Struck patient to keep follow-up appointment with GI. Disposition: HOME SELF-CARE Condition: Good Instructions (If sedation given, give patient instructions): Anemia (ED) Is patient prescribed a controlled substance at d/c from ED?: No Referrals: Wei Henry DO [Primary Care Provider] - 1-2 days Time of Disposition: 15:40
[2023-08-24 14:35] VITALS: TEMP 98.7
[2023-08-24 15:28] LABS: Anisocytosis Slight; Basophils % (A) 0 %; Eosinophils # (A) 0.1 k/uL (0-0.7); Eosinophils % (A) 1 %; HCT 31.5 % (39.0-53.0); HGB 9.6 gm/dL (13.0-17.5); Hypochromasia Marked; Lymphocytes # (A) 0.5 k/uL (1.0-4.8); Lymphocytes % (A) 5 %; MCH 24.9 pg (25.0-35.0); MCHC 30.4 g/dL (31.0-37.0); Mean Platelet Volume 9.5; Monocytes # (A) 0.6 k/uL (0-1.0); Monocytes % (A) 6 %; Neutrophils # (A) 9.1 k/uL (1.3-7.7); Neutrophils % (A) 87 %; Platelet Count 397 k/uL (150-450); Poikilocytosis Moderate; RBC 3.85 m/uL (4.30-5.90); RDW 17.6 % (11.5-15.5); WBC 10.4 k/uL (3.8-10.6)
[2023-08-24 15:36] LABS: MCV 81.8 fL (80.0-100.0); Partial Thromboplastin Time 23.3 sec (22.0-30.0); Prothrombin Time 10.8 sec (10.0-12.5)
[2023-08-24 15:37] LABS: ALT 17 U/L (4-49); AST 24 U/L (17-59); African American GFR (CKD) >90 (>60 ml/min/1.73 sqM); Albumin 3.8 g/dL (3.5-5.0); Alkaline Phosphatase 103 U/L (38-126); Anion Gap 12 mmol/L; Blood Urea Nitrogen 29 mg/dL (9-20); Calcium 9.5 mg/dL (8.4-10.2); Carbon Dioxide 20 mmol/L (22-30); Chloride 106 mmol/L (98-107); Glucose 123 mg/dL (74-99); Non-African American GFR(CKD) >90 (>60 ml/min/1.73 sqM); Potassium 4.2 mmol/L (3.5-5.1); Sodium 138 mmol/L (137-145); Total Bilirubin 0.4 mg/dL (0.2-1.3); Total Protein 5.8 g/dL (6.3-8.2)
[2023-08-24 16:12] VITALS: BP 102/66; PULSE 74; RESP 16
== END 2023-08-24 16:02 | disposition home or self-care (01) ==
LOC: EC 14:02
DX: D50.9 Iron deficiency anemia, unspecified (principal); E11.40 Type 2 diabetes mellitus with diabetic neuropathy, unspecified; I11.0 Hypertensive heart disease with heart failure; I50.9 Heart failure, unspecified; J44.89 Other specified chronic obstructive pulmonary disease; I25.10 Atherosclerotic heart disease of native coronary artery without angina pectoris; I48.91 Unspecified atrial fibrillation; I48.92 Unspecified atrial flutter; E78.5 Hyperlipidemia, unspecified; K21.9 Gastro-esophageal reflux disease without esophagitis; M19.90 Unspecified osteoarthritis, unspecified site; Z79.01 Long term (current) use of anticoagulants; Z79.51 Long term (current) use of inhaled steroids; Z79.84 Long term (current) use of oral hypoglycemic drugs; Z88.1 Allergy status to other antibiotic agents; Z88.5 Allergy status to narcotic agent; Z88.6 Allergy status to analgesic agent; Z88.8 Allergy status to other drugs, medicaments and biological substances; Z87.891 Personal history of nicotine dependence; Z86.711 Personal history of pulmonary embolism; Z86.73 Personal history of transient ischemic attack (TIA), and cerebral infarction without residual deficits; Z98.41 Cataract extraction status, right eye; Z98.42 Cataract extraction status, left eye
CPT/HCPCS: 36415; 80053; 85025; 85610; 85730; 99283

== ENCOUNTER → 2024-03-20 | Outpatient (CLI) | payer MEDICARE ==
[2024-03-20 14:25] VITALS: BP 112/64; PULSE 67; RESP 16; TEMP 97.3
--- NOTE | 2024-03-20 15:06 | P.PAINPG ---
PQRS Measure Charge Sheet Comment: HISTORY OF PRESENT ILLNESS: A 69 yr old male as a referral from Dr Cifuentes presents today w severe and chronic LBP > 1 yr secondary to radiculopathy, spondylosis and facet arthropathy without myelopathy for evaluation. Pt states pain level is provoked at 8 /10 in intensity, constant, localized in the lumbar spine, predominantly axial, achy in character w occasional shooting pain towards the back of the LEs. Pain is provoked by walking/ standing for periods > 30 min. Pain is alleviated by PT x 12 wks which ended in Aug 2023, physician guided home stretches daily since Aug 2023, heat, ice, mediations ([place]), topical Voltaren, use of a wheelchair for ambulatory assistance, repositioning and rest . PMH: OA, aFib, Atrial Flutter, Asthma, CHF, COPD, NIDDM II, GERD, Hyperlipidemia, HTN, Prostate Disorder, PE (2003), Skin Disorder, JOSE C PSH: Bowel Resection w Mesh, Heart Catheterization, Cardioversion, ARNOL, Hernia Repair, BL Hip Replacement, Orthopedic Surgery, Tonsillectomy, BL Cataract Extraction, HH Repair, Bronchoscopies. Colonoscopy, R Elbow Ulnar Nerve Surgery SH: Former tobacco user, No ETOH abuse, No illicit drug use FH: Fa- Prostate CA. Mo- Skin CA. Bro- Lung CA All: See list Meds: See list REVIEW OF ORGAN SYSTEMS: CONSTITUTIONAL: No fevers or chills. No recent weight loss. NEUROLOGICAL: + numbness and tingling along the distal extremities. No seizure disorders or headaches. MUSCULOSKELETAL: + pain PSYCHIATRIC: Denies current depression or suicidal thoughts. Physical Examinations : Constitutional : Cooperative , not in acute distress . Neurologic : Cranial nerve II to XII intact. No focal neurological deficits. Psychiatric : alert & oriented x 3. Matching mood & appropriate affect. Judgment & insight intact. Musculoskeletal : Cervical Spine Motor strength in the deltoid and biceps: Normal right side. Normal Left side Motor strength biceps and the wrist extensors: Normal right side . Normal left side Motor strength in the triceps muscle: Normal right side. Normal left side Deep tendon reflexes: Normal at the biceps. Normal at Brachioradialis. Normal at triceps Vertebral body tenderness to deep palpation over Cervical facet loading test: positive bilaterally Spurling test: positive bilaterally Neck distraction test: positive bilaterally Rebecca sign: positive bilaterally Lumbar spine Motor strength lower extremities ,thigh and legs 5/5 Right side , 5/5 Left side Deep tendon reflexes : Normal Knee Jerk. Normal Ankle Jerk Vertebral body tenderness over L3 Luz Test positive BL L3-L4 Lumbar facet Loading Test: positive Right / positive Left Range of motion of the lumbar spine Flexion 30 degrees, extension 10 degrees Straight Leg Raise test: Left/ Right positive at degrees Shey test: positive right / positive left. Severe tenderness over the Sacroiliac joint on the Right / Left sides Gaenslen test: positive bilaterally Seated flexion test: positive bilaterally. Sacral spine : Severe tenderness over the Sacroiliac joint: right side / left side Range of motion: Flexion of the lumbar spine <60 degrees Range of motion: Extension of the lumbar spine <20 degrees Gaenslen's Test positive Shey test: positive right side / left side Thigh Thrust Test Sacral Thrust Test Imaging: MRI non contrast lumbar spine from 02/19/24 reviewed Assessment/ Plan : Lumbar radiculopathy Recommendation of RENAN L3-L4 #1. Risks, benefits of procedure discussed and patient verbalized understanding. Admits to anti- coagulant use or medical history of diabetes. Protocol for discontinuation/ continuation of medications derrek procedure discussed. Awaiting medical clearance for Eliquis from Dr Chau. All questions answered. I have spent greater than 30 minutes on patient care today. Dr Krishnan was available by phone for the evaluation of this patient. The time was used to review the medical records including relevant urine studies and Prescription history (MAPs), review of the available imaging, evaluation and examination of the patient, coordination of care with the medical staff and if applicable referring physicians, as well as creation of the medical record PQRS Narrative: Smoking Status Former smoker Home Medications: Ambulatory Orders Montelukast Sodium [Singulair] 10 mg PO HS 01/29/18 Furosemide [Lasix] 20 mg PO DAILY 07/11/18 Potassium Chloride [K-Tab ER] 20 meq PO DAILY 07/11/18 Ipratropium-Albuterol Nebulize [Duoneb 0.5 mg-3 mg/3 ml Soln] 3 ml INHALATION DIRECTED PRN 06/28/19 Diclofenac Sodium Gel [Voltaren 1% Gel] 1 applic TOPICAL QID 05/21/21 metFORMIN HCL [Glucophage] 1,000 mg PO BID 05/21/21 Budesonide [Pulmicort] 0.5 mg INHALATION BID 01/01/23 Fluticasone/Umeclidin/Vilanter [[place] Ellipta 200-62.5-25] 1 puff INHALATION RT-DAILY 01/01/23 Formoterol Fumarate [Perforomist] 20 mcg INHALATION RT-BID 01/01/23 Sertraline [Zoloft] 100 mg PO DAILY 01/01/23 Apixaban [Eliquis] 2.5 mg PO Q12HR 06/15/23 Docusate [Colace] 100 mg PO DAILY PRN cap 06/26/23 Pregabalin [Lyrica] 300 mg PO BID #6 cap 06/26/23 traMADol HCL 100 mg PO Q6H PRN #12 tab 06/26/23 Amoxic-Pot Clav 875-125Mg [Augmentin 875-125] 1 tab PO Q12HR 07/09/23 Atorvastatin [Lipitor] 10 mg PO HS 07/09/23 Ipratropium-Albuterol Nebulize [Duoneb 0.5 mg-3 mg/3 ml Soln] 3 ml INHALATION TID 07/09/23 predniSONE See Taper PO DIRECTED 07/09/23 Albuterol Inhaler [Ventolin Hfa Inhaler] 1 - 2 puff INHALATION Q6H PRN 07/26/23 HYDROcodone/APAP 5-325MG [[place] 5-325] 1 tab PO Q4HR PRN 07/26/23 Lactobacillus Acidophilus [Acidophilus] 1 each PO DAILY 07/26/23 Omeprazole 20 mg PO BID 07/26/23 Controlled Substance Measures - Controlled Substance Measures Is patient prescribed a controlled substance at discharge?: No
== END ==
LOC: PNWHC3 13:19
PROVIDERS: ATTEND Specialist
DX: M47.26 Other spondylosis with radiculopathy, lumbar region (principal); M48.061 Spinal stenosis, lumbar region without neurogenic claudication; Z87.891 Personal history of nicotine dependence; Z88.8 Allergy status to other drugs, medicaments and biological substances; Z88.6 Allergy status to analgesic agent; Z88.1 Allergy status to other antibiotic agents
CPT/HCPCS: 99211

== ENCOUNTER → 2024-04-07 | Outpatient (CLI) | payer MEDICARE ==
[2024-04-07 18:56] LABS: Prothrombin Time 10.8 sec (9.9-11.9)
[2024-04-07 19:31] LABS: BUN/Creat Ratio 32.57 Ratio (12.00-20.00); Blood Urea Nitrogen 22.8 mg/dL (9.0-27.0); Calcium 9.6 mg/dL (8.7-10.3); Carbon Dioxide 21.5 mmol/L (21.6-31.8); Chloride 103 mmol/L (96-109); Glucose 93 mg/dL (70-110); Potassium 4.6 mmol/L (3.5-5.5); Sodium 141 mmol/L (135-145)
[2024-04-07 19:38] LABS: Basophils # (A) 0.07 X 10*3/uL (0.00-0.10); Basophils % (A) 0.8 %; Eosinophils # (A) 0.37 X 10*3/uL (0.04-0.35); Eosinophils % (A) 4.3 %; HCT 39.8 % (39.6-50.0); HGB 12.2 g/dL (13.0-17.0); Lymphocytes # (A) 1.03 X 10*3/uL (0.90-5.00); Lymphocytes % (A) 11.9 %; MCH 25.8 pg (27.0-32.0); MCHC 30.7 g/dL (32.0-37.0); MCV 84.3 FL (80.0-97.0); Mean Platelet Volume 12.1 FL (9.5-12.2); Monocytes # (A) 0.87 X 10*3/uL (0.20-1.00); Monocytes % (A) 10.1 %; NRBC Per 100 WBC 0 X 10*3/uL (0.00-0.01); Neutrophils # (A) 6.26 X 10*3/uL (1.80-7.70); Neutrophils % (A) 72.4 %; Platelet Count 186 X 10*3/uL (140-440); RBC 4.72 X 10*6/uL (4.40-5.60); WBC 8.64 X 10*3/uL (4.50-10.00)
== END | disposition home or self-care (01) ==
LOC: LABWHC1 13:41
PROVIDERS: ATTEND Student in an Organized Health Care Education/Training Program
DX: I48.0 Paroxysmal atrial fibrillation (principal)
CPT/HCPCS: 36415; 80048; 85025; 85610

== ENCOUNTER 2024-04-10 12:38 | Day surgery (SDC) | payer MEDICARE ==
[2024-04-10] MEDS ORDERED: LACTATED RINGERS 1,000 ML IV SCH (13:13)
[2024-04-10 13:30] VITALS: TEMP 98.2
[2024-04-10 13:42] LABS: Glucose,Whole Blood 76 mg/dL (70-110)
[2024-04-10] MEDS ORDERED: IOPAMIDOL M300 15ML VIAL ONE (14:12)
[2024-04-10] MEDS ORDERED: ROPIVACAINE 5MG/ML 20ML VIAL ONE (14:12)
[2024-04-10] MEDS ORDERED: methylPREDNISolone ACETATE 80 MG/ML 1 ML VIAL ONE (14:12)
[2024-04-10 14:41] VITALS: RESP 18
--- NOTE | 2024-04-10 14:44 | P.PCN ---
Description of Procedure: PREOPERATIVE DIAGNOSIS: 1- Lumbar Degenerative Disc Diseases 2-Lumbar spondylosis with Facet arthropathy without myelopathy. 3-lumbar spinal stenosis POSTOPERATIVE DIAGNOSIS: 1-lumbar degenerative disc disease. 2-lumbar spondylosis with facet arthropathy without myelopathy. 3-lumbar spinal stenosis. PROCEDURE Injection of radio contrast material into L5-S1 interspace, interpretation of epidurogram, injection of steroid at L5-S1 epidural space under fluoroscopic guidance. ANESTHESIA: Lidocaine 1% subcutaneously. In OR continuous pulse ox, EKG, blood pressure and verbal communication was maintained with the patient. EBL: Minimal PROCEDURE INDICATION: Before the procedure were discussed with the patient detailed procedure, alternatives, complications including infection, bleeding, nerve damage, paralysis all of which could be permanent. Patient understands and all questions were answered. PROCEDURE DESCRIPTION : After getting consent, patient in OR in prone position. Back was prepped with chlorhexidine and draped in sterile fashion. After injecting 10 mL of 1% lidocaine subcutaneously, a 20-gauge Tuohy needle was introduced at L5-S1 interspace with loss of resistance technique using a syringe filled with air. Negative CSF, negative blood, negative paresthesia. Needle position was confirmed with AP and lateral view of the fluoroscope. After repeat negative aspiration 2 mL of Omnipaque 200 water soluble contrast was injected. Contrast was noted in the epidural space. No contrast was noted into intrathecal or intravascular space. After repeat negative aspiration 6 mL solution was injected intermittently which consists of 5 mL of preservative-free normal saline mixed with 1 mL of 80 mg Depo-Medrol. Needle was withdrawn intact. Initial attempt to introduce to the needle at L4-5 interspace was unsuccessful. Skin was cleansed and Band-Aids was applied. DISPOSITION / PLANS: The patient tolerated the procedure well. No complication. The patient was placed in a supine position and transferred to the recovery area in a stable condition for observation. There was no evidence of lower extremity motor or sensory deficit after the procedure. Patient was discharged from the recovery room after meeting discharge criteria. Home discharge instructions were given to the patient by the staff. The patient was reexamined prior to discharge. The patient will schedule a follow up in the clinic in 2-4 weeks.
[2024-04-10 15:02] VITALS: BP 121/70; PULSE 60
--- NOTE | 2024-04-10 15:13 | FL ---
EXAMINATION TYPE: FL guided pain mgmt statistic DATE OF EXAM: 04/10/2024 FLUOROSCOPY 24 SEC [place] .[id number] DAP DOSE 2 images provided during lumbar epidural steroid injection [facility], , 04/10/2024 3:11 PM
== END 2024-04-10 15:05 | disposition home or self-care (01) ==
LOC: ORPAIN 12:38
PROVIDERS: ATTEND Pain Medicine Interventional Pain Medicine
DX: M54.16 Radiculopathy, lumbar region (principal); M51.369 Other intervertebral disc degeneration, lumbar region without mention of lumbar back pain or lower extremity pain; M47.816 Spondylosis without myelopathy or radiculopathy, lumbar region; M48.061 Spinal stenosis, lumbar region without neurogenic claudication
CPT/HCPCS: 62323; Q9967; J2795; J1010

== ENCOUNTER → 2024-04-23 | Outpatient (CLI) | payer MEDICARE ==
[2024-04-23 13:45] VITALS: BP 113/76; PULSE 64; RESP 18; TEMP 96.7
--- NOTE | 2024-04-23 15:18 | P.PAINPG ---
PQRS Measure Charge Sheet Comment: HISTORY OF PRESENT ILLNESS: A 69 yr old male presents today w severe and chronic LBP > 1 yr secondary to radiculopathy, spondylosis and facet arthropathy without myelopathy for evaluation s/p RENAN L5-S1 #1. Pt states he experienced 90 % pain relief x 2 wks s/p procedure. Pt states pain level is provoked at 5 /10 in intensity, intermittent, localized in the lumbar spine, predominantly axial, achy in character w occasional shooting pain towards the back of the LLE. Pain is provoked by walking/ standing for periods > 30 min. Pain is alleviated by PT x 12 wks which ended in Aug 2023, physician guided home stretches daily since Aug 2023, heat, ice, mediations, topical, use of a cane for ambulatory assistance, repositioning and rest . Interventional procedures include RENAN L5-S1 x1 Medications include [place], Voltaren Gel REVIEW OF ORGAN SYSTEMS: CONSTITUTIONAL: No fevers or chills. No recent weight loss. NEUROLOGICAL: + numbness and tingling along the distal extremities. No seizure disorders or headaches. MUSCULOSKELETAL: + pain PSYCHIATRIC: Denies current depression or suicidal thoughts. Physical Examinations : Constitutional : Cooperative , not in acute distress . Neurologic : Cranial nerve II to XII intact. No focal ne urological deficits. Psychiatric : alert & oriented x 3. Matching mood & appropriate affect. Judgment & insight intact. Musculoskeletal : Cervical Spine Motor strength in the deltoid and biceps: Normal right side. Normal Left side Motor strength biceps and the wrist extensors: Normal right side . Normal left side Motor strength in the triceps muscle: Normal right side. Normal left side Deep tendon reflexes: Normal at the biceps. Normal at Brachioradialis. Normal at triceps Vertebral body tenderness to deep pa lpation over Cervical facet loading test: positive bilaterally Spurling test: positive bilaterally Neck distraction test: positive bilaterally Rebecca sign: positive bilaterally Lumbar spine Motor strength lower extremities ,thigh and legs 5/5 Right side , 5/5 Left side Deep tendon reflexes : Normal Knee Jerk. Normal Ankle Jerk Vertebral body tenderness over L5 Luz Test positive L> R L5-S1 Lumbar facet Loading Test: positive Right / positive Left Range of motion of the lumbar spine F lexion 30 degrees, extension 10 degrees Straight Leg Raise test: Left/ Right positive at degrees Shey test: positive right / positive left. Severe tenderness over the Sacroiliac joint on the Right / Left sides Gaenslen test: positive bilaterally Seated flexion test: positive bilaterally. Sacral spine : Severe tenderness over the Sacroiliac joint: right side / left side Range of motion: Flexion of the lumbar spine <60 degrees Range of motion: Extension of the lumbar spine <20 degrees Gaenslen's Test positive Shey test: positive right side / left side Thigh Thrust Test Sacral Thrust Test Imaging: MRI non contrast lumbar spine from 02/19/24 reviewed Assessment/ Plan : Lumbar radiculopathy Will manage residual pain and may RTC on an as needed basis. All questions answered. I have spent greater than 30 minutes on patient care today. Dr Krishnan was available by phone for the evaluation of this patient. The time was used to review the medical records including relevant urine studies and Prescription history (MAPs), review of the available imaging, evaluation and examination of the patient, coordination of care with the medical staff and if applicable referring physicians, as well as creation of the medical record - Pain Location Lower Back Pharmacological Interventions: PRN Medication PQRS Narrative: Smoking Status Former smoker Narcotic Agreement Date Signed 03/20/24 Hx Alcohol Use (MH) No Home Medications: Ambulatory Orders Montelukast Sodium [Singulair] 10 mg PO HS 01/29/18 Furosemide [Lasix] 20 mg PO DAILY 07/11/18 Potassium Chloride [K-Tab ER] 20 meq PO DAILY 07/11/18 Diclofenac Sodium Gel [Voltaren 1% Gel] 1 applic TOPICAL QID 05/21/21 metFORMIN HCL [Glucophage] 1,000 mg PO BID 05/21/21 Budesonide [Pulmicort] 0.5 mg INHALATION BID PRN 01/01/23 Fluticasone/Umeclidin/Vilanter [Trelegy Ellipta 200-62.5-25] 1 puff INHALATION RT-DAILY 01/01/23 Formoterol Fumarate [Perforomist] 20 mcg INHALATION RT-BID PRN 01/01/23 Sertraline [Zoloft] 100 mg PO DAILY 01/01/23 Apixaban [Eliquis] 2.5 mg PO Q12HR 06/15/23 Docusate [Colace] 100 mg PO DAILY PRN cap 06/26/23 Pregabalin [Lyrica] 300 mg PO BID #6 cap 06/26/23 Atorvastatin [Lipitor] 10 mg PO HS 07/09/23 Ipratropium-Albuterol Nebulize [Duoneb 0.5 mg-3 mg/3 ml Soln] 3 ml INHALATION TID PRN 07/09/23 Albuterol Inhaler [Ventolin Hfa Inhaler] 1 - 2 puff INHALATION Q6H PRN 07/26/23 Lactobacillus Acidophilus [Acidophilus] 1 each PO DAILY 07/26/23 Omeprazole 20 mg PO BID 07/26/23 HYDROcodone/APAP 7.5-325MG [[place] 7.5-325] 1 tab PO QID 04/08/24 Morphine Sulfate ER [Ms Contin] 15 mg PO HS 04/08/24 Controlled Substance Measures - Controlled Substance Measures Is patient prescribed a controlled substance at discharge?: No
== END ==
LOC: PNWHC3 13:18
PROVIDERS: ATTEND Specialist
DX: M47.26 Other spondylosis with radiculopathy, lumbar region (principal); Z87.891 Personal history of nicotine dependence; Z88.1 Allergy status to other antibiotic agents; Z88.6 Allergy status to analgesic agent; Z88.8 Allergy status to other drugs, medicaments and biological substances
CPT/HCPCS: 99211

== ENCOUNTER → 2025-01-09 | Outpatient (CLI) | payer MEDICARE ==
[2025-01-09 12:54] LABS: Basophils # (A) 0.06 10*3/uL (0.00-0.10); Basophils % (A) 0.9 %; Eosinophils # (A) 0.26 10*3/uL (0.04-0.35); Eosinophils % (A) 3.9 %; HCT 42.2 % (39.6-50.0); HGB 14.1 g/dL (13.0-17.0); Lymphocytes # (A) 0.92 10*3/uL (0.90-5.00); Lymphocytes % (A) 13.6 %; MCH 30.9 pg (27.0-32.0); MCHC 33.4 g/dL (32.0-37.0); MCV 92.5 fL (80.0-97.0); Monocytes # (A) 0.58 10*3/uL (0.20-1.00); Monocytes % (A) 8.6 %; Neutrophils # (A) 4.90 10*3/uL (1.80-7.70); Neutrophils % (A) 72.6 %; Platelet Count 173 10*3/uL (140-440); RBC 4.56 10*6/uL (4.40-5.60); RDW 14.9 % (11.5-14.5); WBC 6.75 10*3/uL (4.50-10.00)
[2025-01-09 13:01] LABS: African American GFR (CKD) >90 (>60 ml/min/1.73 sqM); Anion Gap 9 mmol/L; Blood Urea Nitrogen 25 mg/dL (9-20); Calcium 9.5 mg/dL (8.4-10.2); Carbon Dioxide 27 mmol/L (22-30); Chloride 103 mmol/L (98-107); Glucose 91 mg/dL (74-99); Non-African American GFR(CKD) >90 (>60 ml/min/1.73 sqM); Potassium 4.3 mmol/L (3.5-5.1); Sodium 139 mmol/L (137-145)
[2025-01-09 13:08] LABS: INR 0.9 (<1.2); Prothrombin Time 10.6 sec (10.0-12.5)
--- NOTE | 2025-01-10 10:54 | CT ---
EXAMINATION TYPE: CT angio chest DATE OF EXAM: 01/09/2025 2:17 PM COMPARISON: 06/16/2023 CLINICAL INDICATION: Male, 69 years old with history of I48.0 PAROXYSMAL ATRIAL FIBRILLATION; WATCHMA N. PAROXYSMAL ATRIAL FIBRILATION TECHNIQUE/CONTRAST: CTA scan of the thorax is performed with IV Contrast, patient injected with 65 mL of Isovue 370, MIP images are created and reviewed these are created on a separate workstation.. CT DLP: 1271.3 mGycm, Automated exposure control for dose reduction was used. FINDINGS: Lungs/Pleura: No evidence of focal consolidation, pleural effusion or pneumothorax. Left upper lobe 7 mm pulmonary nodule Airway: Large airways are patent. Heart: Size within normal limits. No significant coronary artery calcifications present. Severe aorti c valve calcifications. Left atrial appendage occlusion device without evidence for contrast extendin g into the left atrial appendage. Vasculature: No evidence of aortic aneurysm. Mediastinum: No gross evidence of adenopathy. Musculoskeletal: Moderate disc degeneration changes are present throughout the thoracolumbar spine se condary to osteophyte formation and facet joint arthropathy. Soft Tissues/lymph nodes: Unremarkable. Lower neck: No significant findings. Upper Abdomen: No significant findings. IMPRESSION: 1. Left atrial appendage occlusion device without evidence for contrast extending into the left atri al appendage. 2. Severe aortic valve calcifications. 3. Left upper lobe 7 mm pulmonary nodule. Not clearly seen on prior exams. low-risk patients: CT at 6-12 months, then consider CT at 18-24 months; high-risk patients: CT at 6-12 months, then CT at 18-2 4 months per Fleischner Society pulmonary nodule recommendations. [facility], , 01/10/2025 10:52 AM
== END | disposition home or self-care (01) ==
LOC: RADCTMAIN 11:40
PROVIDERS: ATTEND Student in an Organized Health Care Education/Training Program
DX: I48.0 Paroxysmal atrial fibrillation (principal); R91.1 Solitary pulmonary nodule; I35.8 Other nonrheumatic aortic valve disorders
CPT/HCPCS: 80048; 85025; 85610; 71275; 36415; Q9967